=== PATIENT | male | born 1970 | race Caucasian/White ===

== ENCOUNTER 2018-01-27 18:41 | Outpatient (REF) | payer OTHER, SELFPAY ==
[2018-01-27 22:15] LABS: ALT 31 U/L (12-78); AST 14 U/L (15-37); Albumin 4.1 g/dL (3.4-5.0); Alkaline Phosphatase 107 U/L (46-116); Anion Gap 10.9 mmol/L (3-11); BUN 17 mg/dL (7-18); Bilirubin, Total 0.4 mg/dL (0.2-1.0); CO2 27.1 mmol/L (21.0-32.0); CREATININE 0.93 mg/dL (0.70-1.30); Calcium 9.1 mg/dL (8.5-10.1); Chloride 102 mmol/L (98-107); Cholesterol 170 mg/dL (50-200); Glucose 105 mg/dL (70-100); HDL Cholesterol 43 mg/dL (40-60); LDL CHOLESTEROL 117 mg/dL (<100); Potassium 4.2 mmol/L (3.5-5.1); Sodium 140 mmol/L (136-145); Total Protein 6.8 g/dL (6.4-8.2); Triglyceride 101 mg/dL (30-150)
== END 2018-01-27 19:01 ==
LOC: NCHCN 18:41
PROVIDERS: PCP Family Medicine; Visit Provider Nurse Practitioner Family
DX: Z00.00 Encounter for general adult medical examination without abnormal findings (principal); I10 Essential (primary) hypertension
CPT/HCPCS: 80053; 80061; 83721

== ENCOUNTER 2018-02-10 08:50 | Emergency (ER) | payer OTHER, SELFPAY ==
[2018-02-10 09:03] VITALS: BP 158/91; PULSE 58; RESP 17; TEMP 36.6; O2SAT 97
--- NOTE | 2018-02-10 09:35 | W.ED.GENAD ---
Discharge Plan Disposition Patient Disposition: HOME Condition: Good Discharge Details Chief Complaint: GenMedical Clinical Impression: Varicose veins of both lower extremities, Superficial thrombophlebitis Primary Care Provider: Mirian Malcolm ED Provider: Quang Montesinos [place] Meds and New Rx's Prescriptions: New Eliquis 5 mg (74 tabs) tablets,dose pack 10 mg PO BID Qty: 1 RF: 0 oxycodone-acetaminophen [Percocet] 5-325 mg tablet 1 tab PO TID PRN PRN (Reason: Thrombophlebitis of leg) Qty: 14 RF: 0 cephalexin [Keflex] 500 mg capsule 500 mg PO QID Qty: 28 RF: 0 No Action ascorbic acid (vitamin C) 500 MG tablet 500 mg PO DAILY RF: 0 lisinopril 20 MG tablet 20 mg PO DAILY Qty: 90 RF: 3 hydrochlorothiazide 25 MG tablet 25 mg PO DAILY Qty: 90 RF: 3 gabapentin 300 MG capsule 900 mg PO DAILY RF: 0 Airborne (lysine HCl) 1 EACH tablet, effervescent RF: 0 Discharge Instructions Instructions: Superficial Thrombophlebitis (ED) Stand Alone Forms: Work Release Referrals: Lelia Calderon MD [ [facility] STAFF PHYSICIAN] - Raza Perez DO [ [facility] STAFF PHYSICIAN] - Discharge Data Discharge Date/Time-TO BE ENTERED AT DEPARTURE: 02/10/18 11:42 Medical Decision Making 48 y/o male with multiple risk factors for superficial/DVT. He stands all day, smokes, over weight, and grossly engorged varicosity to both lower extremities with previous history of complications. History and exam consistent with infected varicosity. Will start on Keflex and Apixiban for prophylaxis DVT. Medicate with Percocet for the pain. Refer to surgical group for consideration of vein stripping. Will U/S leg today to evaluate for DVT. Baseline labs to evaluate for infectious process, renal and liver function prior to starting Eliquis. Apprised him and of lab and U/S results. We started Eliquis today and I prescribed Percocet for the pain. I referred him to our surgical group. If they are unavailable then he was advised to f/u with his [facility] surgeon. He would prefer to stay locally. Advised to return to ED for any worsening symptoms i.e CP, SOB, or stroke like symptoms or any falls involving impact to head. He agreed with POC. Medical Records All values with subtle abnormalities but all within acceptable limits and without acute pathology. Imaging Data Radiologic Study: Imaging: Ultrasound Radiologist's impression: The deep veins of the left lower extremity show normal compression, augmentation and color flow. No evidence of a deep venous thrombus is seen. There are varicosities seen extending from the proximal thigh to the knee which contained visible hypoechoic noncompressible thrombus. No focal fluid collection is seen in the left lower extremity. IMPRESSION: 1. No evidence of a left lower extremity deep venous thrombus. 2. Thrombosed varicosities seen in the left thigh. Lab Data Lab results reviewed: Yes I reviewed the patient's lab results. HPI General Date/Time Provider Initiated Documentation: 02/10/18 09:07. Limitations to Documentation: no limitations. Information obtained by: patient. History of Present Illness 48 year old M presents to the emergency department with the chief complaint of painful reddened varicosed vein, HPI Narrative: 48 y/o male here with c/o engorged, painful, reddened varicose vein. He has had problems with varicosity for a long time. He has seen vascular surgeons in the past and asked to have them stripped. He was advised to wear ROSETTA stockings at that time. He does not wear ROSETTA stockings now. He was told that if and when they become problematic he could have something done at that time. He works at [employer] and is on his feet all day at work and he spend time outside walking [place]. He smokes every day and has since his teenage years. A few weeks ago he felt a pop along the inner right leg and he immediately noticed flattening and bruising to one of his varicose veins. About a week ago he felt pain to the inner left leg adjacent to his knee. Over the week the area has increased swelling, redness, warmth and pain. Denies any chest pain, back pain, or sob. he does not take any preventive anticoagulants or platelets. Related Data Home Medications Medication Instructions Recorded Confirmed ascorbic acid (vitamin C) 500 mg PO DAILY 06/19/12 02/10/18 hydrochlorothiazide 25 mg PO DAILY #90 tab-cap 06/19/12 02/10/18 lisinopril 20 mg PO DAILY #90 tab-cap 04/25/13 12/17/18 gabapentin 900 mg PO DAILY 11/13/14 02/10/18 [id number] 04/18/16 [Airborne Effervescent Tablet] apixaban [Eliquis] 10 mg PO BID #1 dose pk 02/10/18 cephalexin [Keflex] 500 mg PO QID #28 cap 02/10/18 oxycodone-acetaminophen [Percocet] 1 tab PO TID PRN PRN #14 tab 02/10/18 Previous Rx's Medication Instructions Recorded apixaban [Eliquis] 10 mg PO BID #1 dose pk 02/10/18 cephalexin [Keflex] 500 mg PO QID #28 cap 02/10/18 oxycodone-acetaminophen [Percocet] 1 tab PO TID PRN PRN #14 tab 02/10/18 Allergies Allergy/AdvReac Type Severity Reaction Status Date / Time No Known Allergies Allergy Unverified 02/10/18 09:07 General Stated Complaint: GenMedical HANH: 3 Review of Systems ENT Reports system reviewed and no additional complaints, except as docu Cardiovascular Comments: Painful engorged varicosity to lower extremities. Left worse than right. Respiratory Reports system reviewed and no additional complaints, except as docu Gastrointestinal Reports system reviewed and no additional complaints, except as docu Genitourinary Reports system reviewed and no additional complaints, except as docu Musculoskeletal Reports system reviewed and no additional complaints, except as docu Integumentary/Breasts Reports system reviewed and no additional complaints, except as docu Neurologic Reports system reviewed and no additional complaints, except as docu Hematologic/Lymphatic Reports system reviewed and no additional complaints, except as docu PFSH Social History Smoking/Tobacco Use Status: Current every day Exam Const General: cooperative, comfortable and no acute distress Nutritional Appearance: overweight Orientation: alert, awake and oriented x3 HENMT Head: atraumatic Ears: hearing grossly normal bilaterally and external ears normal General nose exam: external nose normal and nares normal Eyes General: appearance normal, both eyes and all related structures Neck Neck: normal visual inspection, full ROM and no lymphadenopathy Resp Effort & Inspection: normal respiratory effort and able to speak in complete sentences Auscultation: clear to auscultation bilaterally Cardio Jugular venous pressure: no JVD Rate: regular rate Rhythm: regular rhythm Heart Sounds: S1 normal, S2 normal and no murmurs Skin General skin exam: no rashes or lesions noted Extrem Knee images: 1. Over 20 cm long engorged varicosity. No redness. No pain to touch. 2. Over 20 cm long engorged varicosity. No redness. No pain to touch. 3. Over 20 cm long engorged varicosity. Their is moderate swelling to the proximal end of the varicosty. The swelling is warm, painful, and slight fluctuate. 4. Over 20 cm long engorged varicosity. Their is moderate swelling to the proximal end of the varicosty. The swelling is warm, painful, and slight fluctuate. Course Vital Signs Temperature 36.6 C 02/10/18 09:03 Pulse 58 L 02/10/18 09:03 Respiratory Rate 17 02/10/18 09:03 Blood Pressure 158/91 H 02/10/18 09:03 Pulse Oximetry 97 02/10/18 09:03 Temperature 36.6 C 02/10/18 09:03 Temperature Source Skin 02/10/18 09:03 Pulse 58 L 02/10/18 09:03 Respiratory Rate 17 02/10/18 09:03 Respiratory Effort 02/10/18 09:10 Blood Pressure 158/91 H 02/10/18 09:03 Blood Pressure Position Sitting 02/10/18 09:03 Pulse Oximetry 97 02/10/18 09:03 Oxygen Delivery Method Room Air 02/10/18 09:03 Oxygen Flow Rate 0 02/10/18 09:03 Pain Level 8 02/10/18 09:03
--- NOTE | 2018-02-10 09:53 | DI.US_ITS ---
SYMPTOM/DIAGNOSIS: ENGORGED INFLAMED VARICOSITY TO MEDIAL SIDE KNEE LEFT LOWER EXTREMITY ULTRASOUND: The deep veins of the left lower extremity show normal compression, augmentation and color flow. No evidence of a deep venous thrombus is seen. There are varicosities seen extending from the proximal thigh to the knee which contained visible hypoechoic noncompressible thrombus. No focal fluid collection is seen in the left lower extremity. IMPRESSION: 1. No evidence of a left lower extremity deep venous thrombus. 2. Thrombosed varicosities seen in the left thigh.
[2018-02-10] MEDS: oxyCODONE 5 mg/Acetaminophen 325 mg TAB 1 TAB PO (10:01)
[2018-02-10] MEDS: Cephalexin 500 MG CAP PO (10:01)
[2018-02-10 10:04] VITALS: RESP 17
[2018-02-10 10:15] LABS: Abs Immature Grans 0.03 k/cumm (0.0-0.09); Absolute Basophil Count 0.03 k/cumm (0.0-0.2); Absolute Lymphocyte Count 2.13 k/cumm (1.2-3.4); Absolute Monocyte Count 1.08 k/cumm (0.11-0.7); Basophils % 0.2; Eosinophils % 1.6; HCT 52.4 % (40.0-50.0); HGB 17.8 g/dL (13.5-17.5); Immature Grans % 0.2; Lymphocytes % 16.9; Mean Corpuscular Hemoglobin 32.7 pg (27.0-33.0); Mean Corpuscular Volume 96.3 fL (80-95); Mean Platelet Volume 11.3 fL (8.0-11.0); Monocytes % 8.6; Neutrophils % 72.5; Platelet Count 247 x1000/uL (130-400); RBC 5.44 m/cumm (4.50-6.00); RBC Distribution Width 12.7 % (11.8-14.1); White Blood Cell Count 12.58 k/cumm (4.4-10.8)
[2018-02-10 10:17] LABS: Absolute Neutrophil Count 9.12 k/cumm (1.2-6.7)
[2018-02-10 10:20] LABS: ALT 27 U/L (12-78); AST 15 U/L (15-37); Albumin 3.9 g/dL (3.4-5.0); Alkaline Phosphatase 94 U/L (46-116); Anion Gap 10.3 mmol/L (3-11); BUN 14 mg/dL (7-18); Bilirubin, Total 0.8 mg/dL (0.2-1.0); CO2 27.7 mmol/L (21.0-32.0); CREATININE 0.77 mg/dL (0.70-1.30); Calcium 8.9 mg/dL (8.5-10.1); Chloride 102 mmol/L (98-107); Glucose 107 mg/dL (70-100); Magnesium 2.1 mg/dL (1.8-2.4); Potassium 4.4 mmol/L (3.5-5.1); Sodium 140 mmol/L (136-145); Total Protein 6.7 g/dL (6.4-8.2)
[2018-02-10 11:38] VITALS: BP 134/81; PULSE 50; RESP 17; TEMP 36.8; O2SAT 94
--- NOTE | 2018-02-13 10:23 | NUR.NOTE ---
Nursing Note: Patient called this morning stating that he felt that the pain was back and getting worse. Had not heard from [facility] yet either. I verified that the information from his previous visit was sent to [facility] and it was. I told the patient that he could come back to the ED if he felt that he was getting worse along with contacting his PCP and [facility]. Xiao Keith.
== END 2018-02-10 11:42 | disposition home or self-care (01) ==
PROVIDERS: Emergency Provider Nurse Practitioner Family; PCP Family Medicine
DX: I82.402 Acute embolism and thrombosis of unspecified deep veins of left lower extremity (principal); I80.02 Phlebitis and thrombophlebitis of superficial vessels of left lower extremity; F17.210 Nicotine dependence, cigarettes, uncomplicated
CPT/HCPCS: 36415; 80053; 99284; 83735; 85025; 93971

== ENCOUNTER 2018-02-17 12:48 | Emergency (ER) | payer OTHER, SELFPAY ==
[2018-02-17 13:03] VITALS: BP 183/95; PULSE 53; RESP 16; TEMP 36.7; O2SAT 96
--- NOTE | 2018-02-17 15:17 | DI.US_ITS ---
SYMPTOMS/DIAGNOSIS: INFLAMED SUPERFICIAL VEIN, WORSENING DUPLEX VENOUS ULTRASOUND, LEFT LOWER EXTREMITY: Ultrasound examination of the left lower extremity was performed according to the usual protocol. There is no evidence of deep venous thrombosis. The greater saphenous vein is free of thrombus. Note is made of multiple superficial varicosities, which are thrombosed in the distal thigh and proximal leg. CONCLUSION: No evidence of deep venous thrombosis.
--- NOTE | 2018-02-17 16:07 | W.ED.GENAD ---
Discharge Plan Disposition Patient Disposition: HOME Discharge Details Chief Complaint: Vascular Clinical Impression: Superficial thrombophlebitis of left leg Reason For Visit: vascular problem Primary Care Provider: Mirian Malcolm ED Provider: Antonio Gary Home Meds and New Rx's Prescriptions: Continued ascorbic acid (vitamin C) 500 MG tablet 500 mg PO DAILY RF: 0 lisinopril 20 MG tablet 20 mg PO DAILY Qty: 90 RF: 3 hydrochlorothiazide 25 MG tablet 25 mg PO DAILY Qty: 90 RF: 3 gabapentin 300 MG capsule 900 mg PO DAILY RF: 0 Eliquis 5 mg (74 tabs) tablets,dose pack 10 mg PO BID Qty: 1 RF: 0 oxycodone-acetaminophen [Percocet] 5-325 mg tablet 1 tab PO TID PRN PRN (Reason: Thrombophlebitis of leg) Qty: 14 RF: 0 Airborne (lysine HCl) 1 EACH tablet, effervescent RF: 0 Discontinued cephalexin [Keflex] 500 mg capsule 500 mg PO QID Qty: 28 RF: 0 Discharge Instructions Instructions: Superficial Thrombophlebitis (ED) Additional Instructions: Please follow-up with vascular specialist [place] [facility]. Please contact your primary care physician to arrange follow-up. Keep your left leg elevated as much as possible and rest over the next 1 week. After symptoms improve, you should wear compression stockings. Return to the ER for any worsening or new concerning symptoms. Stand Alone Forms: Work Release Referrals: Mirian Malcolm [Primary Care Provider] - Discharge Data Discharge Date/Time-TO BE ENTERED AT DEPARTURE: 02/17/18 16:27 Medical Decision Making 16:05 -- 48yo m here with persistent superficial thrombophlebitis. Symptoms improved initially on antibiotic and with Eliquis but seem to be worsening now over the past few days. Ultrasound of the left lower extremity interpreted by radiology: Superficial thrombus persist adjacent to the knee. Plan to continue warm compresses, Eliquis and will also treat another 1 week of antibiotic. Patient was instructed to call vascular surgery at [facility] to arrange follow-up. Patient understands importance of timely follow-up. I have asked that records be sent to [facility]. Patient advised to follow-up with his PCP. Usual and customary discharge instructions were provided. I advised him to return to the emergency department if any worsening or new concerning symptoms. HPI General Mode of arrival: ambulatory. Date/Time Provider Initiated Documentation: 02/17/18 14:49. Limitations to Documentation: no limitations. Information obtained by: patient. HPI Narrative: 48yo m here with pain and swelling LLE. Was seen here 02/10 and diagnosed with persistent superficial thrombophlebitis. Symptoms improved initially on antibiotic and Eliquis but seem to be worsening now over the past few days. No associated fever. No numbness. Patient is having difficulty arranging follow-up with vascular at [facility]. Related Data Home Medications Medication Instructions Recorded Confirmed ascorbic acid (vitamin C) 500 mg PO DAILY 06/19/12 02/17/18 hydrochlorothiazide 25 mg PO DAILY #90 tab-cap 06/19/12 02/17/18 lisinopril 20 mg PO DAILY #90 tab-cap 06/19/12 02/17/18 gabapentin 900 mg PO DAILY 11/13/14 02/17/18 Airborne (lysine HCl) 04/18/16 Eliquis 10 mg PO BID #1 dose pk 02/10/18 02/17/18 oxycodone-acetaminophen [Percocet] 1 tab PO TID PRN PRN #14 tab 02/10/18 02/17/18 Previous Rx's Medication Instructions Recorded Eliquis 10 mg PO BID #1 dose pk 02/10/18 oxycodone-acetaminophen [Percocet] 1 tab PO TID PRN PRN #14 tab 02/10/18 Allergies Allergy/AdvReac Type Severity Reaction Status Date / Time No Known Allergies Allergy Unverified 02/17/18 13:09 General Stated Complaint: Vascular HANH: 3 Review of Systems Constitutional Reports as per HPI Cardiovascular Reports as per HPI Gastrointestinal Denies abdominal pain [facility] Social History Smoking/Tobacco Use Status: Current every day Exam Const General: cooperative and no acute distress HENMT Head: normocephalic and atraumatic Mouth: moist mucous membranes Eyes Conjunctivae: normal conjunctivae Sclera: normal sclerae Neck Neck: trachea midline and supple Resp Auscultation: clear to auscultation bilaterally, no rales, no rhonchi and no wheezes Cardio Jugular venous pressure: no JVD Rate: regular rate and not tachycardic Rhythm: regular rhythm Pulses: posterior tibial pulses present on the right 2+ and on the left 2+ GI Palpation: soft, not firm, no guarding, no masses, not rigid and nontender Skin General skin exam: no rashes or lesions noted Neuro General: alert, awake, oriented x3 and tone normal Extrem General: no edema Left lower extremity: hip/thigh (dilated vein medial distal thigh, ttp, mild overlying redness, no warmth) Course Vital Signs Temperature 36.7 C 02/17/18 13:03 Pulse 53 L 02/17/18 13:03 Respiratory Rate 16 02/17/18 13:03 Blood Pressure 183/95 H 02/17/18 13:03 Pulse Oximetry 96 02/17/18 13:03 Temperature 36.7 C 02/17/18 13:03 Temperature Source Temporal Artery Scan 02/17/18 13:03 Pulse 53 L 02/17/18 13:03 Respiratory Rate 16 02/17/18 13:03 Respiratory Effort Non-Labored 02/17/18 13:56 Blood Pressure 183/95 H 02/17/18 13:03 Blood Pressure Position Sitting 02/17/18 13:03 Pulse Oximetry 96 02/17/18 13:03 Oxygen Delivery Method Room Air 02/17/18 13:03 Oxygen Flow Rate 0 02/17/18 13:03 Pain Level 8 02/17/18 13:58
--- NOTE | 2018-02-17 16:11 | ED.GENADUL_ITS ---
Discharge Plan Disposition Patient Disposition: HOME Discharge Details Chief Complaint: Vascular Clinical Impression: Superficial thrombophlebitis of left leg Reason For Visit: vascular problem Primary Care Provider: Mirian Malcolm ED Provider: Antonio Gary Home Meds and New Rx's Prescriptions: Continued ascorbic acid (vitamin C) 500 MG tablet 500 mg PO DAILY RF: 0 lisinopril 20 MG tablet 20 mg PO DAILY Qty: 90 RF: 3 hydrochlorothiazide 25 MG tablet 25 mg PO DAILY Qty: 90 RF: 3 gabapentin 300 MG capsule 900 mg PO DAILY RF: 0 Eliquis 5 mg (74 tabs) tablets,dose pack 10 mg PO BID Qty: 1 RF: 0 oxycodone-acetaminophen [Percocet] 5-325 mg tablet 1 tab PO TID PRN PRN (Reason: Thrombophlebitis of leg) Qty: 14 RF: 0 Airborne (lysine HCl) 1 EACH tablet, effervescent RF: 0 Discontinued cephalexin [Keflex] 500 mg capsule 500 mg PO QID Qty: 28 RF: 0 Discharge Instructions Instructions: Superficial Thrombophlebitis (ED) Additional Instructions: Please follow-up with vascular specialist at [facility]. Please contact your primary care physician to arrange follow-up. Keep your left leg elevated as much as possible and rest over the next 1 week. After symptoms improve, you should wear compression stockings. Return to the ER for any worsening or new concerning symptoms. Stand Alone Forms: Work Release Referrals: Mirian Malcolm [Primary Care Provider] - Discharge Data Discharge Date/Time-TO BE ENTERED AT DEPARTURE: 02/17/18 16:27 Medical Decision Making 16:05 -- 48yo m here with persistent superficial thrombophlebitis. Symptoms improved initially on antibiotic and with Eliquis but seem to be worsening now over the past few days. Ultrasound of the left lower extremity interpreted by radiology: Superficial thrombus persist adjacent to the knee. Plan to continue warm compresses, Eliquis and will also treat another 1 week of antibiotic. Patient was instructed to call vascular surgery at [facility] to arrange follow-up. Patient understands importance of timely follow-up. I have asked that records be sent to [facility]. Patient advised to follow-up with his PCP. Usual and customary discharge instructions were provided. I advised him to return to the emergency department if any worsening or new concerning symptoms. HPI General Mode of arrival: ambulatory . Date/Time Provider Initiated Documentation: 02/17/18 14:49 . Limitations to Documentation: no limitations . Information obtained by: patient . HPI Narrative: 48yo m here with pain and swelling LLE. Was seen here 02/10 and diagnosed with persistent superficial thrombophlebitis. Symptoms improved initially on antibiotic and Eliquis but seem to be worsening now over the past few days. No associated fever. No numbness. Patient is having difficulty arranging follow-up with vascular at [facility]. Related Data Home Medications Medication Instructions Recorded Confirmed ascorbic acid (vitamin C) 500 mg PO DAILY 06/19/12 02/17/18 hydrochlorothiazide 25 mg PO DAILY #90 tab-cap 06/19/12 02/17/18 lisinopril 20 mg PO DAILY #90 tab-cap 06/19/12 02/17/18 gabapentin 900 mg PO DAILY 11/13/14 02/17/18 Airborne (lysine HCl) 04/18/16 Eliquis 10 mg PO BID #1 dose pk 02/10/18 02/17/18 oxycodone-acetaminophen [Percocet] 1 tab PO TID PRN PRN #14 tab 02/10/18 02/17/18 Previous Rx's Medication Instructions Recorded Eliquis 10 mg PO BID #1 dose pk 02/10/18 oxycodone-acetaminophen [Percocet] 1 tab PO TID PRN PRN #14 tab 02/10/18 Allergies Allergy/AdvReac Type Severity Reaction Status Date / Time No Known Allergies Allergy Unverified 02/17/18 13:09 General Stated Complaint: Vascular HANH: 3 Review of Systems Constitutional Reports as per HPI Cardiovascular Reports as per HPI Gastrointestinal Denies abdominal pain [facility] Social History Smoking/Tobacco Use Status: Current every day Exam Const General: cooperative and no acute distress HENMT Head: normocephalic and atraumatic Mouth: moist mucous membranes Eyes Conjunctivae: normal conjunctivae Sclera: normal sclerae Neck Neck: trachea midline and supple Resp Auscultation: clear to auscultation bilaterally, no rales, no rhonchi and no wheezes Cardio Jugular venous pressure: no JVD Rate: regular rate and not tachycardic Rhythm: regular rhythm Pulses: posterior tibial pulses present on the right 2+ and on the left 2+ GI Palpation: soft, not firm, no guarding, no masses, not rigid and nontender Skin General skin exam: no rashes or lesions noted Neuro General: alert, awake, oriented x3 and tone normal Extrem General: no edema Left lower extremity: hip/thigh (dilated vein medial distal thigh, ttp, mild overlying redness, no warmth) Course Vital Signs Temperature 36.7 C 02/17/18 13:03 Pulse 53 L 02/17/18 13:03 Respiratory Rate 16 02/17/18 13:03 Blood Pressure 183/95 H 02/17/18 13:03 Pulse Oximetry 96 02/17/18 13:03 Temperature 36.7 C 02/17/18 13:03 Temperature Source Temporal Artery Scan 02/17/18 13:03 Pulse 53 L 02/17/18 13:03 Respiratory Rate 16 02/17/18 13:03 Respiratory Effort Non-Labored 02/17/18 13:56 Blood Pressure 183/95 H 02/17/18 13:03 Blood Pressure Position Sitting 02/17/18 13:03 Pulse Oximetry 96 02/17/18 13:03 Oxygen Delivery Method Room Air 02/17/18 13:03 Oxygen Flow Rate 0 02/17/18 13:03 Pain Level 8 02/17/18 13:58
== END 2018-02-17 16:27 | disposition home or self-care (01) ==
PROVIDERS: Emergency Provider Student in an Organized Health Care Education/Training Program; PCP Family Medicine
DX: I80.02 Phlebitis and thrombophlebitis of superficial vessels of left lower extremity (principal); F17.210 Nicotine dependence, cigarettes, uncomplicated; Z79.01 Long term (current) use of anticoagulants
CPT/HCPCS: 99284; 93971

== ENCOUNTER 2018-07-24 16:20 | Outpatient (REF) | payer OTHER, SELFPAY ==
[2018-07-28 11:27] LABS: HSV Type 1 Ab, IgG Positive; HSV Type 2 Ab, IgG Negative; Syphilis Serology (RPR) Negative (Negative); Varicella IgG Antibody Positive
[2018-07-28 13:51] LABS: Chlamydia Result Negative; GC Result Negative; Specimen Description URINE
[2018-07-28 14:19] LABS: HIV-1/2 Ag & Ab Screen Negative (NEGAT)
== END 2018-07-24 16:40 ==
LOC: NCHCN 16:20
PROVIDERS: PCP Family Medicine; Visit Provider Family Medicine
DX: Z00.00 Encounter for general adult medical examination without abnormal findings (principal); Z11.3 Encounter for screening for infections with a predominantly sexual mode of transmission; Z11.4 Encounter for screening for human immunodeficiency virus [HIV]; Z01.84 Encounter for antibody response examination
CPT/HCPCS: 86787; 87389; 87491; 87591; 86592; 86695; 86696

== ENCOUNTER 2018-08-13 00:37 | Emergency (ER) | payer OTHER, SELFPAY ==
[2018-08-13 00:41] VITALS: BP 106/70; PULSE 50; RESP 10; TEMP 36.2; O2SAT 97
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
[2018-08-13 00:58] LABS: Abs Immature Grans 0.11 k/cumm (0.0-0.09); Absolute Basophil Count 0.05 k/cumm (0.0-0.2); Absolute Eosinophil Count 0.25 k/cumm (0.0-0.7); Absolute Lymphocyte Count 4.19 k/cumm (1.2-3.4); Absolute Monocyte Count 0.98 k/cumm (0.11-0.7); Basophils % 0.4; Eosinophils % 1.9; HCT 45.4 % (40.0-50.0); HGB 15.7 g/dL (13.5-17.5); Immature Grans % 0.8; Lymphocytes % 32.1; Mean Corp. HGB Concentration 34.6 g/dL (32.0-36.0); Mean Corpuscular Hemoglobin 33.9 pg (27.0-33.0); Mean Corpuscular Volume 98.1 fL (80-95); Mean Platelet Volume 11.4 fL (8.0-11.0); Monocytes % 7.5; Neutrophils % 57.3; Platelet Count 235 x1000/uL (130-400); RBC 4.63 m/cumm (4.50-6.00); RBC Distribution Width 12.3 % (11.8-14.1); White Blood Cell Count 13.04 k/cumm (4.4-10.8)
[2018-08-13 01:00] LABS: Absolute Neutrophil Count 7.47 k/cumm (1.2-6.7)
[2018-08-13 01:07] LABS: PTT Activated 21.4 sec (21.0-31.4); Prothrombin Time 10.1 sec (9.3-11.0)
[2018-08-13 01:08] LABS: ALT 64 U/L (12-78); AST 52 U/L (15-37); Albumin 3.6 g/dL (3.4-5.0); Alkaline Phosphatase 93 U/L (46-116); Anion Gap 11.1 mmol/L (3-11); BUN 13 mg/dL (7-18); Bilirubin, Total 0.3 mg/dL (0.2-1.0); CO2 24.9 mmol/L (21.0-32.0); CREATININE 0.89 mg/dL (0.70-1.30); Chloride 102 mmol/L (98-107); Glucose 170 mg/dL (70-100); Potassium 3.1 mmol/L (3.5-5.1); Sodium 138 mmol/L (136-145); Total Protein 6.6 g/dL (6.4-8.2)
[2018-08-13 01:10] LABS: ETHANOL BLOOD 225.4 mg/dL (<3)
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
[2018-08-13] MEDS: Omnipaque 350 MG/ML 100 ML BTL IJ (02:14)
--- NOTE | 2018-08-13 02:45 | DI.CT_ITS ---
SYMPTOM/DIAGNOSIS: [place] [facility] [place]ACIC AND LUMBAR SPINES: Images of the spine were reconstructed from a chest and abdominal and pelvic CT. There is no evidence of a dorsal or lumbar fracture or subluxation. Note is made of an L5-S1 spondylolysis without evidence of spondylolisthesis. There are mild degenerative changes involving the dorsal and lumbar spine.
== END 2018-08-13 02:02 | disposition short-term general hospital (02) ==
LOC: ER 01:58
PROVIDERS: Emergency Provider Emergency Medicine; PCP Family Medicine
DX: S72.142A Displaced intertrochanteric fracture of left femur, initial encounter for closed fracture (principal); S81.812A Laceration without foreign body, left lower leg, initial encounter; M79.662 Pain in left lower leg; J98.11 Atelectasis; V47.5XXA Car driver injured in collision with fixed or stationary object in traffic accident, initial encounter
CPT/HCPCS: 36415; 73552; 74177; 80053; 86850; 86900; 86901; 99285; 70450; 71260; 72125; 73590; 80320; 85025; 85610; 85730; 99284; J3490; L0172

== ENCOUNTER 2020-02-04 06:52 | Emergency (ER) | payer OTHER, SELFPAY ==
[2020-02-04 06:55] VITALS: BP 175/110; PULSE 80; RESP 16; TEMP 36.5; O2SAT 97
--- NOTE | 2020-02-04 06:57 | ED.GENADUL_ITS ---
Discharge Plan Disposition Patient Disposition: HOME Condition: Stable Discharge Details Clinical Impression: Sprain of left middle finger Primary Care Provider: Mirian Malcolm ED Provider: Quang yLle Home Meds and New Rx's Prescriptions: Continued ascorbic acid (vitamin C) 500 MG tablet 500 mg PO DAILY RF: 0 lisinopril 20 MG tablet 20 mg PO DAILY Qty: 90 RF: 3 hydrochlorothiazide 25 MG tablet 25 mg PO DAILY Qty: 90 RF: 3 gabapentin 300 MG capsule 900 mg PO DAILY RF: 0 multivitamin Tablet 1 tab PO DAILY RF: 0 atorvastatin 10 mg Tablet 10 mg PO DAILY RF: 0 atenolol 100 mg Tablet 100 mg PO DAILY RF: 0 thiamine HCl (vitamin B1) 100 mg Tablet 100 mg PO DAILY RF: 0 citalopram [Celexa] 20 mg Tablet 20 mg PO DAILY RF: 0 sildenafil (pulm.hypertension) 20 mg Tablet 20 mg PO PRN PRNRF: 0 Discharge Instructions Instructions: Finger Sprain (ED) Additional Instructions: if pain continues in a week see your primary care provider you can take 1000mg tylenol and 600mg ibuprofen every 6 hours for pain as needed Stand Alone Forms: Work Release Medical Decision Making 50 yo male states he slipped in the shower last night and hit his left middle finger. No loc and denies headache, n/v, neck pain, chest pain, abdominal pain or back pain, just has pain over pip joinht of left middle finger with mild swelling. CAn full flex and extend at all joint though has discomfort in the pip joint of middle finger, normal sensation and cap refill. Suspect sprain vs contusion but will xray to evaluate for fx. No findings to suggest tendon injury remains with stable unchanged exam and xray unremarkable, will d/c home and advised to f/u with pcp if not improved within a week Differential Diagnosis Differential Diagnosis: sprain strain fx dislocation Imaging Data Radiologic Study: Attestation: I personally reviewed and interpreted this imaging study as follows: Imaging: X-Ray Radiologist's impression: no acute findings HPI General Mode of arrival: ambulatory . Date/Time Provider Initiated Documentation: 02/04/20 06:56 . Limitations to Documentation: no limitations . Information obtained by: patient . History of Present Illness 50 year old M presents to the emergency department with the chief complaint of pain in middle finger, described as moderate, Patient started experiencing this day(s) (1) and it has been constant. No relieving factors improve symptom(s), No exacerbating factors reported . Patient notes no other symptoms.. Patient did receive the following treatments prior to arrival, none Related Data Home Medications Medication Instructions Recorded Confirmed ascorbic acid (vitamin C) 500 mg PO DAILY 06/19/12 08/13/18 hydrochlorothiazide 25 mg PO DAILY #90 tab-cap 06/19/12 08/13/18 lisinopril 20 mg PO DAILY #90 tab-cap 06/19/12 08/13/18 gabapentin 900 mg PO DAILY 11/13/14 08/13/18 atenolol 100 mg PO DAILY 08/13/18 08/13/18 atorvastatin 10 mg PO DAILY 08/13/18 08/13/18 citalopram [Celexa] 20 mg PO DAILY 08/13/18 08/13/18 multivitamin 1 tab PO DAILY 08/13/18 08/13/18 sildenafil (pulm.hypertension) 20 mg PO PRN PRN 08/13/18 08/13/18 thiamine HCl (vitamin B1) 100 mg PO DAILY 08/13/18 08/13/18 Allergies Allergy/AdvReac Type Severity Reaction Status Date / Time No Known Allergies Allergy Unverified 02/04/20 06:58 General HANH: 2 Review of Systems All systems reviewed & are unremarkable except as noted in HPI and below Constitutional Constitutional: Denies chills, Denies fever(s) and Denies weakness Cardiovascular Cardiovascular: Denies chest pain and Denies dyspnea Respiratory Respiratory: Denies cough and Denies dyspnea Gastrointestinal Gastrointestinal: Denies abdominal pain, Denies nausea and Denies vomiting Musculoskeletal Musculoskeletal: Denies joint swelling Neurologic Neurologic: Denies weakness Psychiatric Psychiatric: Denies depression [facility], [facility] Social History Smoking/Tobacco Use Status: Current every day Smoking risk assessment performed?: Yes Alcohol Intake: current Drug use: Never Substance use type: does not use Do you feel safe at home: Yes Do you feel safe in your relationship?: Yes Exam Const General: no acute distress Orientation: alert HENMT Head: normal to inspection Ears: external ears normal General nose exam: external nose normal Mouth: moist mucous membranes Eyes General: appearance normal, both eyes and all related structures Neck Neck: normal visual inspection Resp Effort & Inspection: normal respiratory effort and able to speak in complete sentences Cardio Rate: regular rate Skin General skin exam: no rashes or lesions noted Neuro General: patient alert and patient oriented x3 Extrem General: full ROM and capillary refill normal Psych Mental Status: mental status grossly normal
--- NOTE | 2020-02-04 07:13 | DI.RAD_ITS ---
EXAM: XR FINGER LT MIDDLE CLINICAL HISTORY: pain s/p fall yesterday. TECHNIQUE: 2D digital imaging was performed. COMPARISON: No exams were available for comparison FINDINGS: Three views of the left hand including a PA view of the entire hand plus 2 dedicated views of the 3rd -middle finger. There is no evidence of fracture nor dislocation. No radiopaque foreign body. No osseous lesions. Mild swelling the soft tissues around the distal proximal phalanx noted. IMPRESSION: No fracture evident. DATA REPOSITORY: RADIATION DOSE DELIVERED:
--- NOTE | 2020-02-04 07:20 | DI.VRAD_ITS ---
PROCEDURE INFORMATION: Exam: XR Left Finger(s) Exam date and time: 02/04/2020 7:10 AM Age: 50 years old Clinical indication: Other: Pain, S/P fall yesterday TECHNIQUE: Imaging protocol: XR Left fingers. Views: Minimum 2 views. COMPARISON: No relevant prior studies available. FINDINGS: Bones/joints: No acute bony injury or malalignment in the visualized left hand. Soft tissues: Soft tissue swelling without radiopaque foreign body. IMPRESSION: No acute bony injury or malalignment in the visualized left hand. Dictated and Authenticated by: Jose Raul Land MD. Ordering:BETTY Del Rio MD
== END 2020-02-04 07:34 | disposition home or self-care (01) ==
PROVIDERS: Emergency Provider Emergency Medicine; PCP Family Medicine
DX: S63.633A Sprain of interphalangeal joint of left middle finger, initial encounter (principal); W18.2XXA Fall in (into) shower or empty bathtub, initial encounter; X50.9XXA Other and unspecified overexertion or strenuous movements or postures, initial encounter
CPT/HCPCS: 29130; 99283; 73140

== ENCOUNTER 2020-10-07 10:12 | Day surgery (SDC) | payer OTHER, SELFPAY ==
--- NOTE | 2020-10-07 10:16 | PDOC.DSDIS_ITS ---
Discharge Plan Disposition Patient Disposition: HOME Condition: Good Discharge Details Reason For Visit: colon scope & polyp removal Attending Provider: Kathryn Francis Primary Care Provider: Mirian Malcolm Home Meds and New Rx's Prescriptions: New ciprofloxacin HCl [Cipro] 500 mg tablet 500 mg PO BID 5 Days Qty: 10 RF: 0 metronidazole [Flagyl] 500 mg tablet 500 mg PO Q8H 5 Days Qty: 15 RF: 0 Continued ascorbic acid (vitamin C) 500 MG tablet 500 mg PO DAILY RF: 0 lisinopril 20 MG tablet 20 mg PO DAILY Qty: 90 RF: 3 vardenafil [Levitra] 20 mg tablet 20 mg PO DAILY RF: 0 cyanocobalamin (vitamin B-12) 1,000 mcg capsule 1,000 mcg PO DAILY RF: 0 gabapentin 300 MG capsule 900 mg PO DAILY RF: 0 multivitamin Tablet 1 tab PO DAILY RF: 0 atorvastatin 10 mg Tablet 10 mg PO DAILY RF: 0 atenolol 100 mg Tablet 100 mg PO DAILY RF: 0 thiamine HCl (vitamin B1) 100 mg Tablet 100 mg PO DAILY RF: 0 citalopram [Celexa] 20 mg Tablet 20 mg PO DAILY RF: 0 Discontinued polyethylene glycol 3350 17 gram/dose powder 238 g PO ONCE Qty: 238 RF: 0 bisacodyl [Dulcolax (bisacodyl)] 5 mg tablet,delayed release (DR/EC) 5 mg PO ONCE Qty: 4 RF: 0 Discharge Instructions Additional Instructions: DSU Colonoscopy Post- Op Instructions Instructions for Everyone who is given Anesthesia: For your safety, please do the following for the next twenty-four (72) hours: *Do Not operate a motor vehicle (car, truck, motorcycle, etc.) *Do Not drink alcoholic beverages or use any recreational drugs for the first 72 hours or while taking pain medications. The medications in your body may have a reaction that can be dangerous. *Do Not make any important decisions or sign any important papers. Findings: multiple large polyps -take antibiotics as directed -no aspirin or ibuprofen for 10 days Follow up: repeat scope in 1 yrs time. 1. No lifting over 20 pounds or strenuous activity for the first 72 hours after your procedure. After 72 hours there are no restrictions on your activity but you may feel fatigued for a few days. 2. After you arrive home you may have a light meal and return to your normal diet as you can tolerate it without feeling sick to your stomach. 3. You may have a bloated, gaseous feeling in your belly (abdomen) after a colonoscopy. Passing gas and belching will help. Walking or lying down on your left side with your knees flexed may relieve the discomfort. Call the office at [phone] (Office) or [phone] (Hospital) right away if you notice any of the following: a.Vomiting of blood or ?coffee ground stools?. b.Rectal bleeding 1Tbsp, blood clots or continuous bleeding. c.Severe belly (abdominal) pain. d.A hard distended belly (abdomen) and an inability to pass gas. 4. Please don?t expect to have a normal BM (bowel movement) for 2-3 days after your procedure. 5. If there are questions regarding the findings of your procedure, please contact your doctor 6. If you are unable to contact your doctor with a problem, contact the hospital at [phone]. 7. Continue all your regular medications unless directed otherwise. I understand the above instructions and have no questions. Signature of Patient or Adult Escort Name of Responsible Adult Escort Signature of Nurse Date/Time Activity:: see above Diet:: see above Discharge Orders Discharge Orders: Discharge Order (Routine); Ordered 10/06/20 Ordered By: Kathryn Francis DS: Diagnosis Discharge Diagnosis (1) Multiple adenomatous polyps: Status: Acute
--- NOTE | 2020-10-07 10:17 | W.COLOREPORT ---
Date of service: 10/07/20 Time of Service: 13:02 Colonoscopy Report Date of procedure: 10/07/20 Pre-op diagnosis general: Family history of colorectal cancer Post-op diagnosis procedure note: other (Adenomatous polyps) Anesthesia Type: General:No Airway Estimated blood loss (mL): 2 Pathology: other Complications: None Disposition: same day Prep: Miralax/Dulcolax Retraction Time: 60 mins Procedure Description: After informed consent was obtained the patient was taken to the procedure room and placed in a left decubitous position. Monitors were applied and a time out was done. The patients name, date of , procedure, allergies to medications and metal in their body was reviewed. The patient was then sedated. Once sedated and comfortable a rectal exam was done. External exam was normal. Internal exam revealed a normal sphincter tone and no palpable masses. The scope was then introduced and retrofelexed. no internal hemorrhoids were identified. The scope was then advanced to the cecum w/out difficulty. The TI and appendiceal orifice were identified. The prep was adequate. There was a large amount of retained debris on the cohen of the colon. This was lavaged, however lesions less than 5 mm in the best. He had multiple polyps that are removed. At 80 cm he had x3, 5 mm, flat adenomatous polyps. All 3 of these polyps are removed with a cold biopsy forcep. At 30 cm he has a lg pedunculated 3cm polyp that is tattooed and then removed with a hot snare. A clip was placed over the defect. At 20 cm he has had 3 adenomatous polyps are removed. The first is a 5 mm flat polyp this is removed with a cold forcep. He has a small 1cm pedunculated polyp. This is removed with hot snare and extracted. He has a 1.5 cm pedunculated polyp that is removed with a hot snare and removed. None of these areas required clips. This area is tattooed as well. He has x2 adenomatous polyps in the rectum. One is a flat 5 mm polyp that is removed with a hot snare. The second is near the anal rectal junction and .75 mm slightly pedunculated polyp that is removed with a hot biopsy forcep. All specimens are retrieved and no bleeding is noted. The scope was then slowly retracted over 60mins. there are no diverticula or AVMs noted. All specimens are retrieved and there is no bleeding noted. 60 Minutes back into the rectum. The scope was removed and the patient was woken up and taken back to Same day surgery in stable condition. The patient tolerated the procedure well and there were no immediate complications. Follow up: The patient should follow up in 1 years unless they develop changes in bowel habits or other new gastrointestinal complaints.
[2020-10-07 10:36] VITALS: BP 148/98; PULSE 63; RESP 18; TEMP 36.2; O2SAT 96
[2020-10-07] MEDS: Lactated Ringers 1,000 ML 80 ML IV (10:52)
--- NOTE | 2020-10-07 11:48 | W.ANESPRE ---
General Info Date of Service Date Performed: 10/07/20 Height: 6 ft Weight: 112.9 kg Body Mass Index (BMI): 33.7 Surgical Procedure: Operation Date: 10/07/20 11:05 Proposed Procedures Side Surgeon inge Francis DO Meds Allergies and Home Medications Allergies Allergy/AdvReac Type Severity Reaction Status Date / Time No Known Allergies Allergy Verified 10/07/20 10:32 Home Medication Medication Instructions Recorded ascorbic acid (vitamin C) 500 mg PO DAILY 06/19/12 lisinopril 20 mg PO DAILY #90 tab-cap 06/19/12 gabapentin 900 mg PO DAILY 11/13/14 atenolol 100 mg PO DAILY 08/13/18 atorvastatin 10 mg PO DAILY 08/13/18 citalopram [Celexa] 20 mg PO DAILY 08/13/18 multivitamin 1 tab PO DAILY 08/13/18 thiamine HCl (vitamin B1) 100 mg PO DAILY 08/13/18 cyanocobalamin (vitamin B-12) 1,000 mcg PO DAILY 06/10/20 1,000 mcg capsule vardenafil 20 mg tablet 20 mg PO DAILY 06/10/20 bisacodyl 5 mg tablet,delayed 5 mg PO ONCE #4 tab 09/30/20 release polyethylene glycol 3350 17 238 g PO ONCE #238 g 09/30/20 gram/dose oral powder Current Visit Medications: Current Medications Generic Name Dose Route Start Last Admin Trade Name Freq PRN Reason Stop Dose Admin Hyoscyamine Sulfate 0.125 mg 10/06/20 18:08 Hyoscyamine 0.125 Mg Sl/Oral/Chew SL DIRECTED PRN Ringer's Solution 1,000 mls @ 80 mls/hr 10/07/20 06:00 10/07/20 10:52 IV 11/05/20 23:59 80 mls/hr INFUSION SWATHI Administration IV Miscellaneous Supplies 1 each 10/07/20 06:00 Iv Access IV 11/05/20 23:59 DIRECTED SWATHI Ondansetron HCl 4 mg 10/06/20 18:08 Ondansetron 4 Mg/2 Ml Vial IVP Q4H PRN PRN Nausea / Vomiting Sodium Chloride 0 ml 10/07/20 06:00 Normal Saline Flush 10 Ml Syr IV 11/05/20 23:59 PRN PRN Sodium Chloride 0 ml 10/07/20 06:00 Normal Saline 10 Ml Vial IJ 11/05/20 23:59 DIRECTED PRN Sterile Water 0 ml 10/07/20 06:00 Water,Injection,Sterile 10 Ml Vial IJ 11/05/20 23:59 DIRECTED PRN PFSH Active Problems Active Problems: Problem Status Onset Code Varicose veins of both lower extremities I83.93 Hypertriglyceridemia E78.1 Prediabetes R73.03 Anger Alcohol abuse F10.10 Peripheral neuropathy G62.9 Smoker F17.200 Hypertension I10 Situational anxiety F41.8 Erectile dysfunction N52.9 Bilateral hearing loss H91.93 Screening for colon cancer Z12.11 Loose body of right elbow M24.021 Idiopathic peripheral neuropathy 06/25/13 G60.9 Tobacco Smoking/Tobacco Use Status: Current every day Tobacco Type: cigarettes Alcohol Alcohol Intake: current Alcohol intake frequency: 0-2 drinks per day Substance Use Substance use: Never Substance use type: does not use Vital Signs and Lab Results Vital Signs Most Recent Vital Signs in EMR: Most Recent Vital Signs Temp Pulse Resp BP Pulse Ox 36.2 C L 63 18 148/98 H 96 10/07/20 10:36 10/07/20 10:36 10/07/20 10:36 10/07/20 10:36 10/07/20 10:36 Lab Results Blood Type / Crossmatch: No Data to Display Complete Blood Count: No Data to Display Complete Metabolic Panel: No Data to Display Liver Function Panel: No Data to Display Coagulation Panel: No Data to Display Cardiac Panel: No Data to Display Arterial Blood Gas: No Data to Display Venous Blood Gas: No Data to Display Pancreas Panel: No Data to Display Thyroid Panel: No Data to Display Infectious Disease: No Data to Display Blood Cultures: No Data to Display Toxicology Panel: No Data to Display Anesthesia Assessment and Plan Anesthesia History Personal History: No History of Anesthesia Complications Family History: No Family History of Anesthesia Complications Exercise Tolerance Exercise Tolerance: Metabolic Equivalents>4 Pertinent Negatives Pertinent Negatives: No Symptoms of GERD and No Major Cardiovascular Symptoms or Complaints Cardiac & Pulmonary Exam Cardiac Exam: Normal S1/S2 Heart Sounds Pulmonary Exam: Clear Bilateral Breath Sounds Airway Exam Known Difficult Airway: No Mallampati Class: 2 Mouth Opening: Normal (> 3cm) Thyromental Distance: Less than 3 cm Neck Range of Motion: Full ROM Neck Circumference: Normal Teeth Condition: Normal Dentition ASA Classification ASA Score: ASA 2 Emergency Case?: No NPO Status NPO Status: NPO Clears >2 hours, Solids >8 hours Anesthesia Plan Resuscitation Status: Full Code Anesthesia Technique: General Anesthesia Airway Planned: Natural Airway Monitors Used: Standard Monitors
[2020-10-07 11:54] VITALS: BMI 33.7
--- NOTE | 2020-10-07 12:21 | BOWEL_PTH ---
PATIENT: Porsha Park LOC: [facility] U#:[id number] AGE/SX: 50/M ROOM: RE10/07/[address]: Kathryn Francis : 1970 BED: DIS: 10/07/2020 SPEC #: [id number] RECD: 10/07/20 16:37 STATUS: DOUG REA #: [id number] AMARILYS: 10/07/20 12:[address]: Kathryn Francis DEPT: Surgical Specimen RECD BY: Myrna Zhang ENTERED: 10/07/20 16:39 SP TYPE: Bowel OTHR DR: Mirian Malcolm Tissues: 1 - BIOPSY BOWEL 2 - BIOPSY BOWEL 3 - BIOPSY BOWEL 4 - BIOPSY BOWEL Procedures: GROSS AND MICRO LEVEL 4 Comments: [id number]
[2020-10-07] MEDS: Endoscopic Tattoo 5 ML SYR IJ ×2 (12:46→12:47)
[2020-10-07 13:09] VITALS: BP 143/90; PULSE 61; RESP 16; TEMP 36.2; O2SAT 95
--- NOTE | 2020-10-07 13:10 | W.ANESPOSTOP ---
Postoperative Evaluation Date, Time and Location Date Performed: 10/07/20 Time Performed: 13:10 Patient Location: Day Surgery Unit Vital Signs Most Recent Imported Vital Signs: Most Recent Vital Signs Temp Pulse Resp BP Pulse Ox 36.2 C L 63 18 148/98 H 96 10/07/20 10:36 10/07/20 10:36 10/07/20 10:36 10/07/20 10:36 10/07/20 10:36 Most Recent Manually Entered Vital Signs: Adult Blood Pressure: 143/90 Heart Rate: 53 Respirations: 12 Oxygen Saturation (%): 97 Temperature (C): 36.6 C Pain Score (0-10 Scale): 0 Pain Score Most Recent Pain Score: Most Recent Pain Score Pain Level 0 10/07/20 10:36 Assessment Mental Status: Awake (Alert & Oriented to Patient Baseline) Airway and Respiratory Function: Patent airway with normal (patient baseline) respiratory exam Cardiovascular Function: Hemodynamically Stable Hydration Status: Adequately Hydrated Nausea & Vomiting: No Nausea or Vomiting Pain: Pt. Denies Any Pain Peripheral Nerve Block: Patient did not receive a nerve block
[2020-10-07 13:11] VITALS: BP 143/90; PULSE 53; RESP 12; TEMPC 36.6; O2SAT 97
[2020-10-07 13:39] VITALS: BP 156/96; PULSE 56; RESP 16; TEMP 36.2; O2SAT 96
== END 2020-10-07 14:03 | disposition home or self-care (01) ==
PROVIDERS: PCP Family Medicine; Visit Provider Surgery
PROC: 0DJD8ZZ Inspection of Lower Intestinal Tract, Via Natural or Artificial Opening Endoscopic (ICD-10-PCS; CPT 45378; principal; 2020-10-07 11:00)
DX: Z12.11 Encounter for screening for malignant neoplasm of colon (principal); D12.4 Benign neoplasm of descending colon; Z80.0 Family history of malignant neoplasm of digestive organs; R73.03 Prediabetes; I10 Essential (primary) hypertension; D12.0 Benign neoplasm of cecum; K62.1 Rectal polyp; D12.5 Benign neoplasm of sigmoid colon
CPT/HCPCS: 45385; 45381; 45380; 45384; 88305

== ENCOUNTER 2020-12-20 11:29 | Emergency (ER) | payer OTHER, SELFPAY ==
[2020-12-20 11:39] VITALS: BP 120/65; PULSE 66; RESP 16; TEMP 36.2; O2SAT 98
[2020-12-20 12:22] VITALS: RESP 16
--- NOTE | 2020-12-20 12:30 | W.ED.GENAD ---
Discharge Plan Disposition Patient Disposition: HOME Condition: Stable Discharge Details Clinical Impression: Acute dehydration, Headache Primary Care Provider: Mirian Malcolm ED Provider: Holley Novoa Home Meds and New Rx's Prescriptions: New ondansetron 4 mg tablet,disintegrating 4 mg PO Q8H PRN5 Days Qty: 15 RF: 0 Continued ascorbic acid (vitamin C) 500 MG tablet 500 mg PO DAILY RF: 0 lisinopril 20 MG tablet 20 mg PO DAILY Qty: 90 RF: 3 cyanocobalamin (vitamin B-12) 1,000 mcg capsule 1,000 mcg PO DAILY RF: 0 gabapentin 300 MG capsule 900 mg PO DAILY RF: 0 multivitamin Tablet 1 tab PO DAILY RF: 0 atorvastatin 10 mg Tablet 10 mg PO DAILY RF: 0 atenolol 100 mg Tablet 100 mg PO DAILY RF: 0 No Action vardenafil [Levitra] 20 mg tablet 20 mg PO DAILY RF: 0 Glucosamine Complex 500 mg Tablet 1 tab PO DAILY RF: 0 thiamine HCl (vitamin B1) 100 mg Tablet 100 mg PO DAILY RF: 0 citalopram [Celexa] 20 mg Tablet 20 mg PO DAILY RF: 0 Discharge Instructions Instructions: Dehydration (ED), General Headache (ED) Additional Instructions: Covid swab today was negative. Head CT shows no acute abnormality. Your labs are largely within normal limits however it does appear that you are dehydrated. I do suspect a viral illness. Take the nausea medications up to 3 times daily 20 minutes before eating or drinking anything. Follow up with primary care provider in 3-5 days. Return to ED sooner if any worsening abdominal pain, continued vomiting, continued headache or concerns. Increase oral fluids. Please take Tylenol 500 mg or Ibuprofen 400mg with food every 4-6 hours as needed for pain and swelling. Stand Alone Forms: Work Release Referrals: Mirian Malcolm [Primary Care Provider] - Discharge Data Discharge Date/Time-TO BE ENTERED AT DEPARTURE: 12/20/20 15:13 Medical Decision Making 50-year-old male presents to the ER chief complaint of dizziness, head explosive headache behind his eyes, fever, chills and diarrhea which is been on and off for the last week. His reports night sweats T-max at home 101. He has had 2 - recent Covid test. He reports that he does have coworkers that are positive for Covid. He denies any abdominal pain, no dysuria or problems urinating. He is a daily smoker, has a past medical history of colonic polyp, high cholesterol, hypertension. CBC, CMP, urinalysis, lipase, head CT and Covid swab ordered. CBC shows white blood cell count of 13.5, absolute neutrophils 10.77, chloride 97, anion gap 13.6 BUN 19 creatinine 1.4 Urinalysis shows trace ketones greater than 50 WBCs however there is squamous contamination, patient has no complaints of dysuria or problems urinating. EXAM: CT BRAIN NECK CTA CLINICAL HISTORY: explosive headache, fever, R/O SAH,. TECHNIQUE: Imaging Protocol: Axial CT angiography was performed with multi-slice acquisition and multi-planar and/or 3D reconstructions. CONTRAST MATERIAL: Intravenous: Omnipaque 350 Contrast volume:structured data in ml COMPARISON: CT CT CHEST/ABD/PEL W from 08/13/[address] HEAD CERVICAL SPINE WO from 08/13/2018 FINDINGS: CT Head W/O and W contrast: Ventricles and Extra axial spaces: Normal in size and morphology for the patient's age. Hemorrhage: None. Cerebral parenchyma: Stable appearing cystic area anteroinferior left temporal fossa which could represent in arachnoid cyst. Midline shift: None. Brainstem/Cerebellum: Normal. Calvarium: Normal. Visualized Paranasal sinuses/Mastoids: Clear. Soft Tissues: Unremarkable. Orbits unremarkable. Enhancement: Normal. IMPRESSION: 1. Normal CTA examination of the [place]. 2. Stable left temporal fossa arachnoid cyst. No evidence of hemorrhage or acute infarct. 3. Minimal plaque at the common carotid bulbs. No significant stenosis. No evidence of dissection.. Findings were called to Holley Muñoz of the emergency department after completion of the exam. EXAM: XR CHEST 1V IN DI DEPT CLINICAL HISTORY: Wheezing, fever PUI, R/O PNA TECHNIQUE: 2D digital imaging was performed. COMPARISON: CT CT CHEST/ABD/PEL W from 08/13/2018 FINDINGS: LUNGS: Scarring left lung base. No area of consolidation or effusion. No pneumothorax.. HEART: Normal. MEDIASTINUM: Normal. BONES: Degenerative disc changes. IMPRESSION: Left basilar scarring. No acute pulmonary findings. Discussed labs and imaging results with family and patient who verbalized understanding. Discussed return instructions. Patient given Zofran prescription to go and has received a liter of normal saline here in department instructed on increasing fluid. This text was generated using [employer] system, please disregard any oddities of phrase or misspellings. HPI General Mode of arrival: ambulatory. Date/Time Provider Initiated Documentation: 12/20/20 11:59. Limitations to Documentation: no limitations. Information obtained by: patient, family, RN notes reviewed and old records reviewed. HPI Narrative: 50-year-old male presents to the ER chief complaint of dizziness, head explosive headache behind his eyes, fever, chills and diarrhea which is been on and off for the last week. His reports night sweats T-max at home 101. He has had 2 - recent Covid test. He reports that he does have coworkers that are positive for Covid. He denies any abdominal pain, no dysuria or problems urinating. He is a daily smoker, has a past medical history of Ector's dementia polyps colonic polyp, high cholesterol, hypertension. Related Data Home Medications Medication Instructions Recorded Confirmed ascorbic acid (vitamin C) 500 mg PO DAILY 06/19/12 12/20/20 lisinopril 20 mg PO DAILY #90 tab-cap 06/19/12 12/20/20 gabapentin 900 mg PO DAILY 11/13/14 12/20/20 atenolol 100 mg PO DAILY 08/13/18 12/20/20 atorvastatin 10 mg PO DAILY 08/13/18 12/20/20 citalopram [Celexa] 20 mg PO DAILY 08/13/18 12/02/20 multivitamin 1 tab PO DAILY 08/13/18 12/20/20 thiamine HCl (vitamin B1) 100 mg PO DAILY 08/13/18 12/20/20 cyanocobalamin (vitamin B-12) 1,000 mcg PO DAILY 06/10/20 12/20/20 1,000 mcg capsule vardenafil 20 mg tablet 20 mg PO DAILY 06/10/20 12/20/20 glucosam-vit [id number]-Zn 1 tab PO DAILY 12/20/20 12/20/20 [Glucosamine Complex] ondansetron 4 mg PO Q8H PRN 5 Days #15 tab 12/20/20 Previous Rx's Medication Instructions Recorded ondansetron 4 mg PO Q8H PRN 5 Days #15 tab 12/20/20 Allergies Allergy/AdvReac Type Severity Reaction Status Date / Time No Known Allergies Allergy Verified 12/20/20 11:46 General Stated Complaint: GenMedical HANH: 2 Review of Systems Constitutional Constitutional: Reports as per HPI, Reports body ache(s), Reports chills, Reports fever(s), Reports headache(s) and Reports night sweats ENT Ears, Nose, Mouth, and Throat: Reports headache(s) Cardiovascular Cardiovascular: Denies chest pain, Reports diaphoresis, Denies syncope, Reports rapid heart rate and Denies dyspnea Respiratory Respiratory: Reports as per HPI, Denies cough, Denies hemoptysis and Denies dyspnea Gastrointestinal Gastrointestinal: Denies abdominal pain, Denies melena, Denies hematochezia, Denies coffee ground emesis, Reports diarrhea, Reports vomiting and Denies hematemesis Genitourinary Genitourinary: Denies difficulty urinating, Denies dysuria and Denies urinary frequency Neurologic Neurologic: Denies syncope and Reports headache(s) [facility] Medical History Multiple adenomatous polyps Pedunculated colonic polyp Surgical History History of colonoscopy with polypectomy (~10/07/20) Social History Smoking/Tobacco Use Status: Current every day Tobacco Type: cigarettes Smoking risk assessment performed?: Yes Alcohol Intake: current Alcohol Intake frequency: a few times a week Drug use: Occasionally Substance use type: does not use and marijuana Do you feel safe at home: Yes Do you feel safe in your relationship?: Yes Exam Narrative Exam Narrative: Constitutional: Alert and oriented x3. Appears stated age. Normal body habitus. Head: Normocephalic, no trauma. Eyes: Pupils PERRL, Red reflex noted, EOM's intact. Eyelids symmetrical without lesions, discharge, or swelling. ENT: Bilateral TM's WNL, External ear normal to inspection, no mastoid TTP, swelling, or erythema, Nasal turbinates WNL, no nasal discharge. Normal dentition, Posterior pharynx WNL, no exudate. Chest: RRR, Normal S1, S2, distal pulses intact. Resp: Lungs clear to auscultation bilaterally, no wheezes, rales, or rhonchi. Abdomen: Soft, non-distended, Normoactive bowel sounds all 4 quads. Musculoskeletal: Normal gait, 5/5 strength to all four extremities. Skin: No suspicious rashes or lesions. Capillary refill less than 2 sec. Neurologic: Cranial nerves II-XII intact. Alert and oriented x 3. Motor: No deficits noted. Sensory: Intact bilaterally all 4 extremities. Reflexes: DTR's intact bilaterally.. Hematologic/Lymphatic: No ecchymosis, no lymphadenopathy. Course Vital Signs Vital signs: Vital Signs Temperature 36.2 C L 12/20/20 11:39 Pulse 66 12/20/20 11:39 Respiratory Rate 16 12/20/20 11:39 Blood Pressure 120/65 12/20/20 11:39 Pulse Oximetry 98 12/20/20 11:39 Temperature 36.2 C L 12/20/20 11:39 Temperature Source Skin 12/20/20 11:39 Pulse 66 12/20/20 11:39 Respiratory Rate 16 12/20/20 12:22 Respiratory Effort 12/20/20 12:22 Respiratory Depth Normal 12/20/20 12:22 Respiratory Pattern Normal 12/20/20 12:22 Blood Pressure 120/65 12/20/20 11:39 Blood Pressure Position Sitting 12/20/20 11:39 Pulse Oximetry 98 12/20/20 11:39 Oxygen Delivery Method Room Air 12/20/20 11:39 Oxygen Flow Rate 0 12/20/20 11:39 Pain Level 7 12/20/20 11:39 Lab/Test Results Lab/Test Results: 12/20/20 12:04 Blood Blood Culture - Pending 12/20/20 12:04 Blood Blood Culture - Pending
[2020-12-20 12:56] LABS: Source Nasal/Nares
[2020-12-20 12:59] LABS: Abs Immature Grans 0.06 10^3/uL (0.0-0.06); Absolute Basophil Count 0.07 10^3/uL (0.0-0.2); Absolute Eosinophil Count 0.05 10^3/uL (0.0-0.7); Absolute Monocyte Count 0.85 10^3/uL (0.1-0.8); Absolute Neutrophil Count 10.77 10^3/uL (1.2-6.7); Basophils % 0.5; Eosinophils % 0.4; HCT 49.2 % (40.0-50.0); HGB 17.2 g/dL (13.5-17.5); Immature Grans % 0.4; Lymphocytes % 12.7; MCH 32.7 pg (27.0-33.0); MCV 93.5 fL (80-95); MPV 11.3 fL (8.0-11.0); Monocytes % 6.3; Neutrophils % 79.7; Nucleated RBC 0 %; Platelet Count 282 10^3/uL (130-400); RBC 5.26 10^6/uL (4.36-5.78); RDW 11.6 % (11.8-14.1); WBC 13.51 10^3/uL (4.4-10.8)
[2020-12-20 13:15] LABS: Absolute Lymphocyte Count 1.72 10^3/uL (1.2-3.4)
[2020-12-20] MEDS: Normal Saline 1,000 ML 1000 ML IV (13:15)
[2020-12-20 13:30] LABS: Bilirubin Small (Negative); Blood Negative (Negative); Clarity Sl Cloudy (Clear); Glucose Negative (Negative); Ketones Trace mg/dL (Negative); Leukocyte Esterase Negative (Negative); Nitrite Negative (Negative); Specific Gravity >= 1.030 (1.005-1.025); Urobilinogen 0.2 EU/dL (Up TO 0.2); pH 5.5 (5-8)
[2020-12-20] MEDS: Omnipaque 350 MG/ML 100 ML BTL 85 ML IJ (13:40)
[2020-12-20] MEDS: Normal Saline - Diluent 50 ML VIAL IV (13:43)
[2020-12-20 13:45] LABS: RBC 20-50 HPF (0-2); WBC >50 HPF (0-5)
[2020-12-20 13:46] LABS: Bacteria Many HPF (Negative); C & S Indicated? No/Sq. Contamination; Casts Negative LPF (Negative); Crystals Negative HPF (Negative); Epithelial Cells Few HPF (Negative); Mucus Heavy (Negative)
[2020-12-20 13:47] LABS: ALT 35 U/L (16-63); AST 19 U/L (15-37); Albumin 4.2 g/dL (3.4-5.0); Alkaline Phosphatase 80 U/L (46-116); Anion Gap 13.6 mmol/L (3-11); BUN 19 mg/dL (7-18); Bilirubin, Total 0.8 mg/dL (0.2-1.0); CO2 26.4 mmol/L (21.0-32.0); CREATININE 1.4 mg/dL (0.70-1.30); Calcium 9.4 mg/dL (8.5-10.1); Chloride 97 mmol/L (98-107); Estimated GFR 53.43 (mL/min/1.73m2); Glucose 190 mg/dL (74-106); Lipase 96 U/L (73-393); Magnesium 2.2 mg/dL (1.8-2.4); Potassium 3.5 mmol/L (3.5-5.1); Sodium 137 mmol/L (136-145); Total Protein 7.4 g/dL (6.4-8.2)
--- NOTE | 2020-12-20 13:50 | DI.CT_ITS ---
Exam(s) CT BRAIN NECK CTA EXAM: CT BRAIN NECK CTA CLINICAL HISTORY: explosive headache, fever, R/O SAH,. TECHNIQUE: Imaging Protocol: Axial CT angiography was performed with multi-slice acquisition and mu lti-planar and/or 3D reconstructions. CONTRAST MATERIAL: Intravenous: Omnipaque 350 Contrast volume:structured data in ml COMPARISON: CT CT CHEST/ABD/PEL W from 08/13/[address] HEAD CERVICAL SPINE WO from 08/13/2018 FINDINGS: CT Head W/O and W contrast: Ventricles and Extra axial spaces: Normal in size and morphology for the patient's age. Hemorrhage: None. Cerebral parenchyma: Stable appearing cystic area anteroinferior left temporal fossa which could rep resent in arachnoid cyst. Midline shift: None. Brainstem/Cerebellum: Normal. Calvarium: Normal. Visualized Paranasal sinuses/Mastoids: Clear. Soft Tissues: Unremarkable. Orbits unremarkable. Enhancement: Normal. CTA Brain W: Internal Carotid Arteries: Petrous: Normal. Cavernous: Normal. Cerebral: Normal. Middle Cerebral Arteries: Right: No aneurysm, occlusion or significant stenosis. Left: No aneurysm, occlusion or significant stenosis. Anterior Cerebral Arteries: Right: No aneurysm, occlusion or significant stenosis. Left: No aneurysm, occlusion or significant stenosis. Posterior cerebral Arteries: Right: No aneurysm, occlusion or significant stenosis. Left: No aneurysm, occlusion or significant stenosis. Vertebral Arteries: Right: No aneurysm, occlusion or significant stenosis. Left: No aneurysm, occlusion or significant stenosis. Basilar Artery: No aneurysm, occlusion or significant stenosis. CTA Neck W: Common Carotid: Right: No aneurysm, occlusion or significant stenosis. Minimal plaque common carotid bulb. Left: No aneurysm, occlusion or significant stenosis. Minimal plaque common carotid bulb. External Carotid: Right: No aneurysm, occlusion or significant stenosis. Left: No aneurysm, occlusion or significant stenosis. Internal Carotid: Right: No aneurysm, occlusion or significant stenosis. Left: No aneurysm, occlusion or significant stenosis. Vertebral Artery: Right: No aneurysm, occlusion or significant stenosis. Left: No aneurysm, occlusion or significant stenosis. Lung Apices: Normal. Bones: Normal. Soft Tissues: Normal. IMPRESSION: 1. Normal CTA examination of the [place]. 2. Stable left temporal fossa arachnoid cyst. No evidence of hemorrhage or acute infarct. 3. Minimal plaque at the common carotid bulbs. No significant stenosis. No evidence of dissection.. Findings were called to Holley Muñoz of the emergency department after completion of the exam. RADIATION DOSE DELIVERED: 2,339.61mGy.cm Total DLP DATA REPOSITORY: All CT scans at this facility are submitted to the National Radiology Data Registry (NRDR) Dose Index Registry (DIR) with the [employer] (ACR). RADIATION OPTIMIZATION: All CT scans at this facility use at least one of these dose optimization te chniques: automated exposure control; mA and/or kV adjustment per patient size (includes targeted exa ms where dose is matched to clinical indication); or iterative reconstruction.
--- NOTE | 2020-12-20 13:55 | DI.RAD_ITS ---
Exam(s) XR CHEST 1V IN DI DEPT EXAM: XR CHEST 1V IN DI DEPT CLINICAL HISTORY: Wheezing, fever PUI, R/O PNA TECHNIQUE: 2D digital imaging was performed. COMPARISON: CT CT CHEST/ABD/PEL W from 08/13/2018 FINDINGS: LUNGS: Scarring left lung base. No area of consolidation or effusion. No pneumothorax.. HEART: Normal. MEDIASTINUM: Normal. BONES: Degenerative disc changes. IMPRESSION: Left basilar scarring. No acute pulmonary findings. DATA REPOSITORY: RADIATION DOSE DELIVERED:
[2020-12-20] MEDS: Ondansetron 4 MG/2 ML VIAL IVP (14:04)
[2020-12-20 14:51] LABS: COVID-19 PCR Negative (Negative)
== END 2020-12-20 15:13 | disposition home or self-care (01) ==
PROVIDERS: Emergency Provider Registered Nurse Emergency; PCP Family Medicine
DX: E86.0 Dehydration (principal); R51.9 Headache, unspecified; R42 Dizziness and giddiness; R50.9 Fever, unspecified; Z20.822 Contact with and (suspected) exposure to COVID-19; Z03.818 Encounter for observation for suspected exposure to other biological agents ruled out
CPT/HCPCS: 36415; 70496; 70498; 80053; 83690; 87040; 87635; 96361; 96374; 99285; 71045; 81003; 81015; 83735; 85025; 99284; J2405; J3490

== ENCOUNTER 2021-04-17 02:25 | Outpatient (CLI) | payer OTHER, SELFPAY ==
[2021-04-17 11:36] LABS: Source Nasal/Nares
[2021-04-17 17:58] LABS: COVID-19 PCR Negative (Negative)
== END 2021-04-17 02:26 | disposition home or self-care (01) ==
LOC: LBO 02:25
PROVIDERS: PCP Family Medicine; Visit Provider Student in an Organized Health Care Education/Training Program
DX: Z20.822 Contact with and (suspected) exposure to COVID-19 (principal); Z01.818 Encounter for other preprocedural examination
CPT/HCPCS: 87635

== ENCOUNTER 2021-04-19 11:29 | Day surgery (SDC) | payer OTHER, SELFPAY ==
[2021-04-19 12:04] VITALS: BP 193/103; PULSE 57; RESP 16; TEMP 36.2; O2SAT 98
[2021-04-19 12:15] VITALS: BP 169/106; PULSE 58
[2021-04-19] MEDS: Lactated Ringers 1,000 ML 80 ML IV (12:42)
--- NOTE | 2021-04-19 13:02 | ANES.PREOP_ITS ---
General Info Date of Service Date Performed: 04/19/21 Height: 6 ft Weight: 116.3 kg Body Mass Index (BMI): 34.7 Surgical Procedure: Operation Date: 04/19/21 15:55 Proposed Procedure Side Surgeon p Cubital Tunnel Decompression, ECTR Right Darren Parrish MD Meds Allergies and Home Medications Allergies Allergy/AdvReac Type Severity Reaction Status Date / Time No Known Allergies Allergy Verified 04/19/21 11:57 Home Medication Medication Instructions Recorded ascorbic acid (vitamin C) 500 mg 500 mg PO DAILY 06/19/12 tablet lisinopril 20 mg tablet 20 mg PO DAILY #90 tab-cap 06/19/12 gabapentin 300 mg capsule 900 mg PO DAILY 11/13/14 atenolol 100 mg tablet 100 mg PO DAILY 08/13/18 atorvastatin 10 mg tablet 10 mg PO DAILY 08/13/18 citalopram 20 mg tablet (Celexa) 20 mg PO DAILY 08/13/18 multivitamin 1 tab PO DAILY 08/13/18 cyanocobalamin (vitamin B-12) 1,000 mcg PO DAILY 06/10/20 1,000 mcg capsule vardenafil 20 mg tablet (Levitra) 20 mg PO DAILY 06/10/20 glucosam-vit L-dttwpn-naar-Zn 500 1 tab PO DAILY 12/20/20 mg tablet Current Visit Medications: Current Medications Generic Name Dose Route Start Last Admin Trade Name Freq PRN Reason Stop Dose Admin Ringer's Solution 1,000 mls @ 80 mls/hr 04/19/21 06:00 04/19/21 12:42 IV 05/18/21 23:59 80 mls/hr INFUSION SWATHI Administration Cefazolin Sodium/Dextrose 2 gm in 50 mls @ 100 mls/hr 04/19/21 06:00 Ancef Duplex IVPB 04/19/21 16:00 PREOP SWATHI IV Miscellaneous Supplies 1 each 04/19/21 06:00 Iv Access IV 05/18/21 23:59 DIRECTED SWATHI Sodium Chloride 0 ml 04/19/21 06:00 Normal Saline Flush 10 Ml Syr IV 05/18/21 23:59 PRN PRN Sodium Chloride 0 ml 04/19/21 06:00 Normal Saline 10 Ml Vial IJ 05/18/21 23:59 DIRECTED PRN Sterile Water 0 ml 04/19/21 06:00 Water,Injection,Sterile 10 Ml Vial IJ 05/18/21 23:59 DIRECTED PRN [facility] Active Problems Active Problems: Problem Status Onset Code Cubital tunnel syndrome, bilateral G56.23 Carpal tunnel syndrome on both sides G56.03 Acute dehydration E86.0 Headache R51.9 Trigger finger M65.30 Trigger finger M65.30 Bilateral hand numbness R20.0 De Quervain'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 Multiple adenomatous polyps D36.9 Pedunculated colonic polyp K63.5 Varicose veins of both lower extremities I83.93 Hypertriglyceridemia E78.1 Prediabetes R73.03 Anger Alcohol abuse F10.10 Peripheral neuropathy G62.9 Smoker F17.200 Hypertension I10 Situational anxiety F41.8 Erectile dysfunction N52.9 Bilateral hearing loss H91.93 Screening for colon cancer Z12.11 Loose body of right elbow M24.021 Idiopathic peripheral neuropathy 06/25/13 G60.9 Medical History Active Problem List Carpal tunnel syndrome on both sides (Acute) Acute dehydration (Acute) Headache (Acute) Trigger finger (Acute) Trigger finger (Acute) Bilateral hand numbness (Acute) De Quervain's disease (radial styloid tenosynovitis) (Acute) Multiple adenomatous polyps (Acute) Pedunculated colonic polyp (Acute) Varicose veins of both lower extremities (Acute) Hypertriglyceridemia (Acute) Prediabetes (Acute) Anger (Acute) Alcohol abuse (Chronic) Peripheral neuropathy (Acute) Smoker (Acute) Hypertension (Chronic) Situational anxiety (Acute) Erectile dysfunction (Acute) Bilateral hearing loss (Acute) Screening for colon cancer (Acute) Idiopathic peripheral neuropathy (Acute 06/25/13) Medical History Comments:: Left lung upper = wheeze right lung lower - crackles marijuana smoke 4 days ago 12:15pm repeat BP 169/106 (right arm) Surgical History Surgical History History of colonoscopy with polypectomy (~10/07/20) Tobacco Smoking/Tobacco Use Status: Current every day Tobacco Type: cigarettes Alcohol Alcohol Intake: current Alcohol intake frequency: a few times a week Alcohol type: other Substance Use Substance use: Occasionally Substance use type: does not use and marijuana Details: Marijuana smoke 4 days ago Vital Signs and Lab Results Vital Signs Most Recent Vital Signs in EMR: Most Recent Vital Signs Temp Pulse Resp BP Pulse Ox 36.2 C L 58 L 16 169/106 H 98 04/19/21 12:04 04/19/21 12:15 04/19/21 12:04 04/19/21 12:15 04/19/21 12:04 Lab Results Blood Type / Crossmatch: No Data to Display Complete Blood Count: No Data to Display Complete Metabolic Panel: No Data to Display Liver Function Panel: No Data to Display Coagulation Panel: No Data to Display Cardiac Panel: No Data to Display Arterial Blood Gas: No Data to Display Venous Blood Gas: No Data to Display Pancreas Panel: No Data to Display Thyroid Panel: No Data to Display Infectious Disease: Coronavirus (COVID-19)(PCR) Negative (Negative) 04/17/21 10:28 04/17/21 Coronavirus 2019 Source Nasal/Nares 04/17/21 10:28 04/17/21 Blood Cultures: No Data to Display Toxicology Panel: No Data to Display Imaging and Studies Imaging and Studies Study information below may be from another EMR and interpreted by another provider. Please see original notes in EMR for more complete details. Pulmonary Function Summary: DATE OF SERVICE: March 16, 2015 Spirometry shows mild obstructive airway disease with significant bronchodilator response. Lung volumes show no evidence of restriction. Diffusion capacity normal. Airway resistance normal. IMPRESSION: Mild obstructive airway disease with significant bronchodilator response. Clinical correlation recommended. Anesthesia Assessment and Plan Anesthesia History Personal History: No History of Anesthesia Complications Family History: No Family History of Anesthesia Complications Exercise Tolerance Exercise Tolerance: Metabolic Equivalents>4 Pertinent Negatives Pertinent Negatives: No Symptoms of GERD, No Major Cardiovascular Symptoms or Complaints and No History of CVA/TIA Cardiac & Pulmonary Exam Cardiac Exam: Normal S1/S2 Heart Sounds Pulmonary Exam: Wheezing Present and Rales Present Cardiac and Pulmonary Comment:: Patient reports recently prescribed inhaler by PCP has not used as has not felt he needed. Significant inspiratory and expiratory wheezes, crackles right base. Implantable Cardiac Device Does patient have a Pacemaker or an ICD?: No Airway Exam Known Difficult Airway: No Mallampati Class: 3 Mouth Opening: Normal (> 3cm) Thyromental Distance: Less than 3 cm Neck Range of Motion: Full ROM Neck Circumference: Normal Teeth Condition: Normal Dentition ASA Classification ASA Score: ASA 3 Emergency Case?: No NPO Status NPO Status: NPO Clears >2 hours, Solids >8 hours Anesthesia Plan Resuscitation Status: Full Code Anesthesia Technique: General Anesthesia Airway Planned: Natural Airway Monitors Used: Standard Monitors
[2021-04-19 13:10] VITALS: BP 184/97; PULSE 56; RESP 18
[2021-04-19] MEDS: Albuterol/Ipratropium 3 ML UPD VIAL UPD (13:29)
--- NOTE | 2021-04-19 13:30 | NUR.NOTE ---
13:15 Noel Tomas [employer] assessed pt, asculatated lungs. Noted wheezing on inspiration and expiration. Ordered Duoneb stat. 13:30 Duoneb administered to pt. Tolerating well. Nursing Note:
[2021-04-19 13:31] VITALS: BMI 34.7
--- NOTE | 2021-04-19 13:49 | NUR.NOTE ---
Reassessment after duoneb. Faint expiratory wheezing right lung, left lung clear. Breathing easily on room air. States he doesn't feel any different. Nursing Note:
--- NOTE | 2021-04-19 13:56 | W.PREOPHP ---
Assessment and Plan Assessment and plan (1) Cubital tunnel syndrome, bilateral: Status: Acute (2) Carpal tunnel syndrome on both sides: Status: Acute Assessment and plan: Porsha is a 51yo male who has bilateral carpal and cubital tunnel syndrome. He has failed nonoperative options. With the positive nerve conduction studies, I recommended proceeding with cubital tunnel and carpal tunnel release. I would recommend we start on the right side first since this is the most symptomatic. I discussed the surgery with him. I reviewed the risks of the procedure to include bleeding, infection, pain, stiffness, recurrence, continued numbness, elbow sensitivity, nerve subluxation, need for repeat procedures. Despite these risks, he elects to proceed. We will do the right side today and then proceed with the left in 3-4 weeks. History of Present Illness Narrative: Porsha is a 51yo who has had persistent pain and numbness of the hands. His right is the worst. He is tender conduction studies which proved the carpal tunnel and cubital tunnel. He has tried conservative, nonoperative options and continues to be limited. He also has some hypersensitivity and a history of lateral epicondylitis. No chest pain or SOB. He does have hypertension and was hypertensive today in the [facility]. Review of Systems All systems reviewed & are unremarkable except as noted in HPI and below PFSH All Active Problems Cubital tunnel syndrome, bilateral (Acute) Carpal tunnel syndrome on both sides (Acute) Acute dehydration (Acute) Headache (Acute) Trigger finger (Acute) Trigger finger (Acute) Bilateral hand numbness (Acute) De Quervain's disease (radial styloid tenosynovitis) (Acute) Multiple adenomatous polyps (Acute) Pedunculated colonic polyp (Acute) Varicose veins of both lower extremities (Acute) Hypertriglyceridemia (Acute) Prediabetes (Acute) Anger (Acute) Alcohol abuse (Chronic) Peripheral neuropathy (Acute) Smoker (Acute) Hypertension (Chronic) Situational anxiety (Acute) Erectile dysfunction (Acute) Bilateral hearing loss (Acute) Screening for colon cancer (Acute) Idiopathic peripheral neuropathy (Acute 06/25/13) Surgical History History of colonoscopy with polypectomy (~10/07/20) Social History Smoking/Tobacco Use Status: Current every day Tobacco Type: cigarettes Smoking risk assessment performed?: Yes Alcohol Intake: current Alcohol Intake frequency: a few times a week Alcohol type: other Drug use: Occasionally Substance use type: does not use and marijuana Details: Marijuana smoke 4 days ago Do you feel safe at home: Yes Do you feel safe in your relationship?: Yes Meds Allergies and Home Medications Allergies Allergy/AdvReac Type Severity Reaction Status Date / Time No Known Allergies Allergy Verified 04/19/21 11:57 Home Medications Medication Instructions Recorded Confirmed Type ascorbic acid (vitamin C) 500 mg 500 mg PO DAILY 06/19/12 04/19/21 History tablet lisinopril 20 mg tablet 20 mg PO DAILY #90 tab-cap 06/19/12 04/19/21 History gabapentin 300 mg capsule 900 mg PO DAILY 11/13/14 04/19/21 History atenolol 100 mg tablet 100 mg PO DAILY 08/13/18 04/19/21 History atorvastatin 10 mg tablet 10 mg PO DAILY 08/13/18 04/19/21 History citalopram 20 mg tablet (Celexa) 20 mg PO DAILY 08/13/18 04/19/21 History multivitamin 1 tab PO DAILY 08/13/18 04/19/21 History cyanocobalamin (vitamin B-12) 1,000 mcg PO DAILY 06/10/20 04/19/21 History 1,000 mcg capsule vardenafil 20 mg tablet (Levitra) 20 mg PO DAILY 06/10/20 04/19/21 History glucosam-vit G-tjooue-yzrs-Zn 500 1 tab PO DAILY 12/20/20 04/19/21 History mg tablet Exam Resp Effort & Inspection: normal respiratory effort Auscultation: clear to auscultation bilaterally and wheezes (Mild wheezes left lower) Cardio Rate: regular rate Rhythm: regular rhythm Results Last Vital Signs Temp 36.2 C L 04/19/21 12:04 Pulse 56 L 04/19/21 13:10 Resp 18 04/19/21 13:10 BP 184/97 H 04/19/21 13:10 Pulse Ox 98 04/19/21 12:04
[2021-04-19] MEDS: ceFAZolin 2 GM/50 ML BAG IVPB (13:59)
--- NOTE | 2021-04-19 14:46 | PDOC.DSDIS_ITS ---
Discharge Plan Disposition Patient Disposition: HOME Condition: Good Discharge Details Reason For Visit: R ECTR/Cubital Tunnel Release Attending Provider: Darren Parrish Primary Care Provider: Mirian Malcolm Home Meds and New Rx's Prescriptions: New acetaminophen 500 mg tablet 1,000 mg PO TID Qty: 90 0RF hydrocodone-acetaminophen 5-325 mg tablet 1 tab PO Q6H PRN (Reason: pain) Qty: 6 0RF ibuprofen 600 mg tablet 600 mg PO TID PRN (Reason: pain) Qty: 90 0RF Continued ascorbic acid (vitamin C) 500 MG tablet 500 mg PO DAILY 0RF lisinopril 20 MG tablet 20 mg PO DAILY Qty: 90 3RF vardenafil [Levitra] 20 mg tablet 20 mg PO DAILY 0RF cyanocobalamin (vitamin B-12) 1,000 mcg capsule 1,000 mcg PO DAILY 0RF gabapentin 300 MG capsule 900 mg PO DAILY 0RF glucosam-vit J-ixzeup-ekai-Zn 500 mg Tablet 1 tab PO DAILY 0RF multivitamin Tablet 1 tab PO DAILY 0RF atorvastatin 10 mg Tablet 10 mg PO DAILY 0RF atenolol 100 mg Tablet 100 mg PO DAILY 0RF citalopram [Celexa] 20 mg Tablet 20 mg PO DAILY 0RF Discharge Instructions Additional Instructions: Cubital Tunnel Decompression Discharge Instructions Activity: You should stay in the sling for the first 2 weeks. You may come out of the sling for gentle motion and hygiene but should largely remain in the sling to allow the incision site to heal. Gentle motion of the elbow, hand, wrist, and fingers is okay and encouraged after the first few days, but no repetitive activites nor heavy lifting. You may apply ice. Medications: - You should take Tylenol and Ibuprofen around the clock. - You have been prescribed Hydrocodone for breakthrough pain. Dressings: - The initial surgical dressing should stay in place for 3 days. It may then be removed and kept clean and dry. You should cover with a light gauze dressing. - You may shower after 3 days and get the wound wet. Follow-up: 10 days Stand Alone Forms: Francois Hunt Tunnel Release Referrals: Darren Parrish MD [ [facility] STAFF PHYSICIAN] - Equipment/Supplies: Sling Activity:: Elevate Remove Dressings/Wound Care:: 72 hours Shower/Bathe:: 72 hours Diet:: As Tolerated Discharge Orders Discharge Orders: Discharge Order (Routine); Ordered 04/19/21 Ordered By: Anastacio Hill DS: Diagnosis Discharge Diagnosis (1) Cubital tunnel syndrome, bilateral: Status: Acute (2) Carpal tunnel syndrome on both sides: Status: Acute
[2021-04-19 14:53] VITALS: BP 135/85; PULSE 66; RESP 16; TEMP 35.7; O2SAT 94
--- NOTE | 2021-04-19 15:21 | W.ANESPOSTOP ---
Postoperative Evaluation Date, Time and Location Date Performed: 04/19/21 Time Performed: 15:00 Patient Location: Day Surgery Unit Vital Signs Most Recent Imported Vital Signs: Most Recent Vital Signs Temp Pulse Resp BP Pulse Ox 35.7 C L 66 16 135/85 94 04/19/21 14:53 04/19/21 14:53 04/19/21 14:53 04/19/21 14:53 04/19/21 14:53 Pain Score Most Recent Pain Score: Most Recent Pain Score Pain Level 0 04/19/21 14:53 Assessment Mental Status: Awake (Alert & Oriented to Patient Baseline) Airway and Respiratory Function: Patent airway with normal (patient baseline) respiratory exam Cardiovascular Function: Hemodynamically Stable Hydration Status: Adequately Hydrated Nausea & Vomiting: No Nausea or Vomiting Pain: Pt. Denies Any Pain Peripheral Nerve Block: Patient did not receive a nerve block
[2021-04-19 15:42] VITALS: BP 154/88; PULSE 64; RESP 18; TEMP 36.4; O2SAT 94
--- NOTE | 2021-04-19 21:44 | W.PM.OP ---
Date of service: 04/19/21 Time of Service: 14:45 Operative Note Operative Note DATE OF PROCEDURE: 04/19/21 PRE-OP DIAGNOSIS: Right Carpal Tunnel and Right Cubital Tunnel Syndrome POST-OP DIAGNOSIS: same PROCEDURE: Right Endoscopic Carpal Tunnel Release and Right Cubital Tunnel Decompression SURGEON: Darren Parrish Refer to Anesthesia Record ESTIMATED BLOOD LOSS: 5 PATHOLOGY: none sent TOURNIQUET TIME: 15 COMPLICATIONS: None Patient was transported to: PACU Patient's condition: stable Indications: Porsha is a 51 year old male who has had symptoms of carpal and cubital tunnel syndrome. Nonoperative treatment options had been trialed. Nerve conduction studies identified the carpal and cubital tunnel as the point of compression. Given failure of nonoperative treatments and persistent symptoms, I offered operative intervention. I reviewed the technical details of a carpal tunnel release and cubital tunnel decompression with possible anterior subcutaneous transposition. I reviewed the risk of the procedure to include bleeding, infection, pain, stiffness, nerve instability, damage to superficial nerves, persistent symptoms, and incomplete release. Despite these risks, the patient elected to proceed. Findings: The carpal tunnel was release with a standard endoscopic technique without difficulty and excellent visualization. There was a tightened cubital tunnel. The ulnar nerve was release from the first motor branch distally through the [place] of [place] proximally. Procedure Description: Porsha was greeted in the preoperative holding area where the correct side was identified and marked. The consent was reviewed with the patient and signed. The history and physical was updated. All questions were answered. He was taken back to the operating room. The patient was placed into the supine position on the operating room table with the right arm on an arm board. A nonsterile tourniquet was placed high onto the arm, into the axilla. All bony prominences were well padded. Prophylactic antibiotics in the form of Cefazolin were administered. The right arm was then prepped with Chloraprep and draped in a standard fashion with stockinette and extremity drape. A timeout to confirm correct identity, side and site, procedure, allergies, anesthesia, and medical concerns was performed. The surgical site was marked in the volar wrist creases in line with the radial border of the fourth ray. This area was anesthetized with approximately 6cc of 1% Lidocaine with Epinephrine. The surgical site about the medial elbow was drawn on the skin just posterior to the medial epicondyle borders. The planned surgical field was anesthetized with 1% Lidocaine with Epinephrine. The limb was then exsanguinated with an Esmarch. Starting with the carpal tunnel, the skin was incised with a 15 blade, approximately 1cm. The skin only was cut and the deeper tissue was dissected bluntly with a tenotomy scissor, avoiding passing nerve and venous structures. The fascia was penetrated and opened bluntly. A two-prong skin hook was placed under this proximal fascial edge. A series of hamate finders were used to identify and dilate the carpal tunnel. Synovial elevator was used to free synovial attachments to the underside of the transverse carpal ligament. My thumb was kept in the palm to daly the distal extent of the carpal tunnel and correctly position the hand. The Microaire endoscope was inserted without difficulty and without resistance. Excellent visualization showed horizontally running fibers of the transverse carpal ligament (TCL). The distal extent of the TCL was visualized and the end of the scope palpated with the thumb. The blade was elevated and withdrawn from distal to proximal. The TCL was split into two flaps. The endoscope was reinserted to confirm complete release and any remnant ligament was incised. The scope was withdrawn and the proximal aspect of the carpal tunnel was grossly inspected and appeared release with the median nerve visible. The antebrachial fascia at the level of the wrist was then freed from the overlying skin and then the underlying median nerve with blunt dissection. This was transected longitudinally for about 3cm proximal to the wrist incision. The wound was then irrigated with easy flow of irrigant distally and proximally. The incision was closed with a single 4-0 Nylon suture. . Attention was then turned to the cubital tunnel release. The skin of the medial elbow was incised only with the elbow in some flexion and on a bump. The deep tissue and subcutaneous fat was dissected with a tenotomy scissors trying to protect any branches of the medial antebrachial cutaneous nerve. Any branches that were identified were retracted out of the way. The ulnar nerve was palpated and identified. A small window into the cubital tunnel, sheath overlying the nerve, was created and the nerve was able to be palpated with the [place]. A Metzenbaum scissor was then used to open up the sheath starting with Gordon's ligament. I then worked distal over the ulnar nerve releasing any constraints against the nerve all the way to the fascia of the FCU muscle belly. This muscle belly was bluntly all the way down to the first motor branch of the ulnar nerve and the overlying fascia was incised. Likewise starting there at the medial epicondyle, I proceeded to work proximally to release any constraints over the ulnar nerve. This was taken all the way to the arcade of [place]. The medial intermuscular septum was also palpated and any sharp edges against the ulnar nerve were resected and released. After fully releasing the nerve it was inspected visually. I was also able to palpate the nerve fully and reach one finger up into the proximal and distal aspects to make sure there were no constraints against the nerve. A freer elevator was also used to slide easily against the ulnar nerve without any points of constriction. The arm was then taken through range of motion. The ulnar nerve did not sublux/dislocate out of its groove behind the lateral epicondyle. Therefore, no transposition was performed. The tourniquet was then deflated. Any areas of bleeding were cauterized with bipolar electrocautery. The wound was thoroughly irrigated. The deep tissue was closed with a 3-0 Vicryl. The skin was closed with a 4-0 nylon. The wounds were dressed with Xeroform, 4 x 4's, ABD, Kerlix and an Jhon wrap. He was placed into a sling. Porsha was transferred back to the PACU in a stable condition.
== END 2021-04-19 15:59 | disposition home or self-care (01) ==
PROVIDERS: PCP Family Medicine; Visit Provider Student in an Organized Health Care Education/Training Program
PROC: (CPT 29848; principal; 2021-04-19 15:45)
DX: G56.23 Lesion of ulnar nerve, bilateral upper limbs (principal); G56.03 Carpal tunnel syndrome, bilateral upper limbs
CPT/HCPCS: 29848; 64718; J0690; J1100; J1885; J2001; J2250; J2405; J2704; J7620

== ENCOUNTER 2021-06-12 02:36 | Outpatient (CLI) | payer OTHER, SELFPAY ==
[2021-06-12 12:04] LABS: Source Nasal/Nares
[2021-06-12 15:36] LABS: COVID-19 PCR Negative (Negative)
== END 2021-06-12 02:37 | disposition home or self-care (01) ==
LOC: LBO 02:36
PROVIDERS: PCP Family Medicine; Visit Provider Student in an Organized Health Care Education/Training Program
DX: Z20.822 Contact with and (suspected) exposure to COVID-19 (principal); Z01.818 Encounter for other preprocedural examination
CPT/HCPCS: 87635

== ENCOUNTER 2021-06-13 13:00 | Day surgery (SDC) | payer OTHER, SELFPAY ==
--- NOTE | 2021-06-13 12:40 | W.PM.DSUDISC ---
Discharge Plan Disposition Patient Disposition: HOME Condition: Stable Discharge Details Reason For Visit: Left ECTR and cubital tunnel release Attending Provider: Darren Parrish Primary Care Provider: Mirian Malcolm Home Meds and New Rx's Prescriptions: Continued ascorbic acid (vitamin C) 500 MG tablet 500 mg PO DAILY 0RF lisinopril 20 MG tablet 20 mg PO DAILY Qty: 90 3RF vardenafil [Levitra] 20 mg tablet 20 mg PO DAILY 0RF cyanocobalamin (vitamin B-12) 1,000 mcg capsule 1,000 mcg PO DAILY 0RF gabapentin 300 MG capsule 900 mg PO DAILY 0RF glucosam-vit V-tjmwsc-qoub-Zn 500 mg Tablet 1 tab PO DAILY 0RF acetaminophen 500 mg tablet 1,000 mg PO TID Qty: 90 0RF hydrocodone-acetaminophen 5-325 mg tablet 1 tab PO Q6H PRN (Reason: pain) Qty: 6 0RF ibuprofen 600 mg tablet 600 mg PO TID PRN (Reason: pain) Qty: 90 0RF multivitamin Tablet 1 tab PO DAILY 0RF atorvastatin 10 mg Tablet 10 mg PO DAILY 0RF atenolol 100 mg Tablet 100 mg PO DAILY 0RF citalopram [Celexa] 20 mg Tablet 20 mg PO DAILY 0RF Discharge Instructions Stand Alone Forms: Francois Hunt Tunnel Release Referrals: Darren Parrish MD [ [facility] STAFF PHYSICIAN] - Activity:: Activity as Tolerated Remove Dressings/Wound Care:: 72 hours Shower/Bathe:: 72 hours Diet:: As Tolerated Discharge Orders Discharge Orders: Discharge Order (Routine); Ordered 06/13/21 Ordered By: Ruthie Dias DS: Diagnosis Discharge Diagnosis (1) Cubital tunnel syndrome, bilateral: Status: Acute (2) Carpal tunnel syndrome on both sides: Status: Acute
[2021-06-13 13:20] VITALS: BP 163/92; PULSE 63; RESP 18; TEMP 36.7; O2SAT 97
--- NOTE | 2021-06-13 13:39 | W.ANESPRE ---
General Info Date of Service Date Performed: 06/13/21 Height: 6 ft Weight: 120.5 kg Body Mass Index (BMI): 36.0 Surgical Procedure: Operation Date: 06/13/21 16:25 Proposed Procedure Side Surgeon p Wrist ECTR Left Darren Parrish MD s Elbow Ulna Nerve Decompression Left Darren Parrish MD Meds Allergies and Home Medications Allergies Allergy/AdvReac Type Severity Reaction Status Date / Time No Known Allergies Allergy Verified 05/26/21 11:37 Home Medication Medication Instructions Recorded ascorbic acid (vitamin C) 500 mg 500 mg PO DAILY 06/19/12 tablet lisinopril 20 mg tablet 20 mg PO DAILY #90 tab-cap 06/19/12 gabapentin 300 mg capsule 900 mg PO DAILY 11/13/14 atenolol 100 mg tablet 100 mg PO DAILY 08/13/18 atorvastatin 10 mg tablet 10 mg PO DAILY 08/13/18 citalopram 20 mg tablet (Celexa) 20 mg PO DAILY 08/13/18 multivitamin 1 tab PO DAILY 08/13/18 cyanocobalamin (vitamin B-12) 1,000 mcg PO DAILY 06/10/20 1,000 mcg capsule vardenafil 20 mg tablet (Levitra) 20 mg PO DAILY 06/10/20 glucosam-vit T-rmghpn-dwuu-Zn 500 1 tab PO DAILY 12/20/20 mg tablet acetaminophen 500 mg tablet 1,000 mg PO TID #90 tab 04/19/21 hydrocodone 5 mg-acetaminophen 325 1 tab PO Q6H PRN #6 tab 04/19/21 mg tablet ibuprofen 600 mg tablet 600 mg PO TID PRN #90 tab 04/19/21 Current Visit Medications: Current Medications Generic Name Dose Route Start Last Admin Trade Name Freq PRN Reason Stop Dose Admin Acetaminophen 650 mg 06/13/21 12:38 Acetaminophen 325 Mg Tab PO Q4H PRN PRN Ringer's Solution 1,000 mls @ 80 mls/hr 06/13/21 06:00 IV 06/24/21 23:59 INFUSION SWATHI Cefazolin Sodium/Dextrose 2 gm in 50 mls @ 100 mls/hr 06/13/21 06:00 Ancef Duplex IVPB 06/13/21 23:59 PREOP SWATHI Ondansetron HCl 4 mg/ Sodium 52 mls @ 200 mls/hr 06/13/21 12:38 Chloride IVPB Q6H PRN PRN IV Miscellaneous Supplies 1 each 06/13/21 06:00 Iv Access IV 06/24/21 23:59 DIRECTED SWATHI Oxycodone HCl 5 mg 06/13/21 12:38 Oxycodone 5 Mg Tab PO Q3H PRN PRN Pain Sodium Chloride 0 ml 06/13/21 06:00 Normal Saline Flush 10 Ml Syr IV 06/24/21 23:59 PRN PRN Sodium Chloride 0 ml 06/13/21 06:00 Normal Saline 10 Ml Vial IJ 06/24/21 23:59 DIRECTED PRN Sterile Water 0 ml 06/13/21 06:00 Water,Injection,Sterile 10 Ml Vial IJ 06/24/21 23:59 DIRECTED PRN PFSH Active Problems Active Problems: Problem Status Onset Code Idiopathic peripheral neuropathy 06/25/13 G60.9 Loose body of right elbow M24.021 Screening for colon cancer Z12.11 Bilateral hearing loss H91.93 Erectile dysfunction N52.9 Situational anxiety F41.8 Hypertension I10 Smoker F17.200 Peripheral neuropathy G62.9 Alcohol abuse F10.10 Anger Prediabetes R73.03 Hypertriglyceridemia E78.1 Varicose veins of both lower extremities I83.93 Multiple adenomatous polyps D36.9 Pedunculated colonic polyp K63.5 De Quervain'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 Bilateral hand numbness R20.0 Trigger finger M65.30 Trigger finger M65.30 Acute dehydration E86.0 Headache R51.9 Carpal tunnel syndrome on both sides G56.03 Cubital tunnel syndrome, bilateral G56.23 Medical History Medical History (Updated 06/13/21 @ 13:39 by Neeru Bolton RN) Hx of fracture of left hip antonette implanted Medical History Comments:: 06/13/21 Pt has diminished lung sounds in all field, w/ expiratory wheeze in RLL. Pt has elevated BP, but states this is normal preop, also no Lisinopril today. Left lung upper = wheeze right lung lower - crackles marijuana smoke 4 days ago 12:15pm repeat BP 169/106 (right arm) Surgical History Surgical History (Updated 06/13/21 @ 13:39 by Neeru Che, RN) History of colonoscopy with polypectomy (~10/07/20) Hx of appendectomy Hx of arthroscopic knee surgery x2 left, and a full reconstruction mcl/pcl/w/ cadaveur ligament. Hx of elbow surgery b/l tennis elbow and removal bone on R. Hx of shoulder surgery L shoulder impingement, labral tear, cyst removal Tobacco Smoking/Tobacco Use Status: Current every day Tobacco Type: cigarettes Alcohol Alcohol Intake: current Alcohol intake frequency: a few times a week Alcohol type: other Substance Use Substance use: Occasionally Substance use type: does not use and marijuana Details: Marijuana smoked last 06/10/21 for pain/neuropathy.HE Vital Signs and Lab Results Vital Signs Most Recent Vital Signs in EMR: Most Recent Vital Signs Temp Pulse Resp BP Pulse Ox 36.7 C 63 18 163/92 H 97 06/13/21 13:20 06/13/21 13:20 06/13/21 13:20 06/13/21 13:20 06/13/21 13:20 Lab Results Blood Type / Crossmatch: No Data to Display Complete Blood Count: No Data to Display Complete Metabolic Panel: No Data to Display Liver Function Panel: No Data to Display Coagulation Panel: No Data to Display Cardiac Panel: No Data to Display Arterial Blood Gas: No Data to Display Venous Blood Gas: No Data to Display Pancreas Panel: No Data to Display Thyroid Panel: No Data to Display Infectious Disease: Coronavirus (COVID-19)(PCR) Negative (Negative) 06/12/21 08:29 06/12/21 Coronavirus 2019 Source Nasal/Nares 06/12/21 08:29 06/12/21 Blood Cultures: No Data to Display Toxicology Panel: No Data to Display Imaging and Studies Imaging and Studies Study information below may be from another EMR and interpreted by another provider. Please see original notes in EMR for more complete details. Pulmonary Function Summary: DATE OF SERVICE: March 16, 2015 Spirometry shows mild obstructive airway disease with significant bronchodilator response. Lung volumes show no evidence of restriction. Diffusion capacity normal. Airway resistance normal. IMPRESSION: Mild obstructive airway disease with significant bronchodilator response. Clinical correlation recommended. Anesthesia Assessment and Plan Anesthesia History Personal History: No History of Anesthesia Complications Family History: No Family History of Anesthesia Complications Exercise Tolerance Exercise Tolerance: Metabolic Equivalents>4 Pertinent Negatives Pertinent Negatives: No Symptoms of GERD, No Major Cardiovascular Symptoms or Complaints, No Major Pulmonary Symptoms or Complaints and Other (Neuropathy in feet) Cardiac & Pulmonary Exam Cardiac Exam: Normal S1/S2 Heart Sounds Pulmonary Exam: Wheezing Present (LLL expiratory) Implantable Cardiac Device Does patient have a Pacemaker or an ICD?: No Airway Exam Known Difficult Airway: No Mallampati Class: 3 Mouth Opening: Normal (> 3cm) Thyromental Distance: Less than 3 cm Facial Hair: Full [place] Neck Range of Motion: Full ROM Neck Circumference: Normal Teeth Condition: Normal Dentition ASA Classification ASA Score: ASA 2 Emergency Case?: No NPO Status NPO Status: NPO Clears >2 hours, Solids >8 hours Anesthesia Plan Resuscitation Status: Full Code Anesthesia Technique: General Anesthesia Airway Planned: Natural Airway Monitors Used: Standard Monitors
[2021-06-13 13:51] VITALS: BMI 36.0
[2021-06-13] MEDS: Lactated Ringers 1,000 ML 80 ML IV (13:53)
[2021-06-13] MEDS: ceFAZolin 2 GM/50 ML BAG IVPB (14:06)
[2021-06-13 15:05] VITALS: BP 120/77; PULSE 61; RESP 18; TEMP 36.4; O2SAT 96
--- NOTE | 2021-06-13 15:09 | W.ANESPOSTOP ---
Postoperative Evaluation Date, Time and Location Date Performed: 06/13/21 Time Performed: 15:09 Patient Location: Day Surgery Unit Vital Signs Most Recent Imported Vital Signs: Most Recent Vital Signs Temp Pulse Resp BP Pulse Ox 36.7 C 63 18 163/92 H 97 06/13/21 13:20 06/13/21 13:20 06/13/21 13:20 06/13/21 13:20 06/13/21 13:20 Pain Score Most Recent Pain Score: Most Recent Pain Score Pain Level 4 06/13/21 13:20 Assessment Mental Status: Arousable with meaningful communication Airway and Respiratory Function: Patent airway with normal (patient baseline) respiratory exam Cardiovascular Function: Hemodynamically Stable Hydration Status: Adequately Hydrated Nausea & Vomiting: No Nausea or Vomiting Pain: Pt. Denies Any Pain Peripheral Nerve Block: Patient did not receive a nerve block
[2021-06-13 15:39] VITALS: BP 134/78; PULSE 60; RESP 18; TEMP 36.5
--- NOTE | 2021-06-13 21:32 | W.PM.OP ---
Date of service: 06/13/21 Time of Service: 14:50 Operative Note Operative Note DATE OF PROCEDURE: 06/13/21 PRE-OP DIAGNOSIS: Left Carpal Tunnel and Left Cubital Tunnel Syndrome and Left Little Finger Trigger Finger POST-OP DIAGNOSIS: same PROCEDURE: Left Endoscopic Carpal Tunnel Release and Left Cubital Tunnel Decompression and Left Little Finger a1 Zoltan Release SURGEON: Darren Parrish ANESTHESIA TYPE: General:No Airway Refer to Anesthesia Record ESTIMATED BLOOD LOSS: 0 PATHOLOGY: none sent TOURNIQUET TIME: 24 COMPLICATIONS: None Patient was transported to: PACU Patient's condition: stable Indications: Porsha is a 51-year-old male who has had symptoms of carpal and cubital tunnel syndrome. Nonoperative treatment options had been trialed. Nerve conduction studies identified the carpal and cubital tunnel as the point of compression. Given failure of nonoperative treatments and persistent symptoms, I offered operative intervention. I reviewed the technical details of a carpal tunnel release and cubital tunnel decompression with possible anterior subcutaneous transposition. I reviewed the risk of the procedure to include bleeding, infection, pain, stiffness, nerve instability, damage to superficial nerves, persistent symptoms, and incomplete release. Despite these risks, the patient elected to proceed. Additionally, he has had worsening triggering and pain about the little finger. Therefore I offered trigger finger release today during the surgery. Findings: The carpal tunnel was release with a standard endoscopic technique without difficulty and excellent visualization. The trigger finger of the left little finger was released with a notable fluid collection which was also evacuated. There was a tightened cubital tunnel. The ulnar nerve was release from the first motor branch distally through the [place] proximally. Procedure Description: Porsha was greeted in the preoperative holding area where the correct side was identified and marked. The consent was reviewed with the patient and signed. The history and physical was updated. All questions were answered. Porsha was taken back to the operating room. The patient was placed into the supine position on the operating room table with the left arm on an arm board. A nonsterile tourniquet was placed high onto the arm, into the axilla. All bony prominences were well padded. Prophylactic antibiotics in the form of Cefazolin were administered. The right arm was then prepped with Chloraprep and draped in a standard fashion with stockinette and extremity drape. A timeout to confirm correct identity, side and site, procedure, allergies, anesthesia, and medical concerns was performed. The surgical site was marked in the volar wrist creases in line with the radial border of the fourth ray. This area was anesthetized with approximately 6cc of 1% Lidocaine with Epinephrine. Likewise, the postsurgical site about the left little finger for the trigger release was also anesthetized in a similar fashion. The surgical site about the medial elbow was drawn on the skin just posterior to the medial epicondyle borders. The planned surgical field was anesthetized with 1% Lidocaine with Epinephrine. The limb was then exsanguinated with an Esmarch. Starting with the carpal tunnel, the skin was incised with a 15 blade, approximately 1cm. The skin only was cut and the deeper tissue was dissected bluntly with a tenotomy scissor, avoiding passing nerve and venous structures. The fascia was penetrated and opened bluntly. A two-prong skin hook was placed under this proximal fascial edge. A series of hamate finders were used to identify and dilate the carpal tunnel. Synovial elevator was used to free synovial attachments to the underside of the transverse carpal ligament. My thumb was kept in the palm to daly the distal extent of the carpal tunnel and correctly position the hand. The Microaire endoscope was inserted without difficulty and without resistance. Excellent visualization showed horizontally running fibers of the transverse carpal ligament (TCL). The distal extent of the TCL was visualized and the end of the scope palpated with the thumb. The blade was elevated and withdrawn from distal to proximal. The TCL was split into two flaps. The endoscope was reinserted to confirm complete release and any remnant ligament was incised. The scope was withdrawn and the proximal aspect of the carpal tunnel was grossly inspected and appeared release with the median nerve visible. The antebrachial fascia at the level of the wrist was then freed from the overlying skin and then the underlying median nerve with blunt dissection. This was transected longitudinally for about 3cm proximal to the wrist incision. The wound was then irrigated with easy flow of irrigant distally and proximally. The incision was closed with a single 4-0 Nylon suture. Attention was then turned to the little finger. A longitudinal incision approximately 1 to 1-1/2 cm was then made. Sharp dissection is carried at the skin. Blunt dissection was carried down to the level of the flexor tendon sheath. The A1 zoltan was identified. Using a scissor the zoltan was released. There was a schulz of fluid at this point. Further inspection was carried down proximally and distally to make sure there is no other attachments of the tendons. The tendon was withdrawn from the wound and showed no significant signs of tearing. The tendons were returned and the wound was irrigated. The skin was closed with a single 4-0 nylon suture. Attention was then turned to the cubital tunnel release. The skin of the medial elbow was incised only with the elbow in some flexion and on a bump. The deep tissue and subcutaneous fat was dissected with a tenotomy scissors trying to protect any branches of the medial antebrachial cutaneous nerve. Any branches that were identified were retracted out of the way. The ulnar nerve was palpated and identified. A small window into the cubital tunnel, sheath overlying the nerve, was created and the nerve was able to be palpated with the [place]. A Metzenbaum scissor was then used to open up the sheath starting with Gordon's ligament. I then worked distal over the ulnar nerve releasing any constraints against the nerve all the way to the fascia of the FCU muscle belly. This muscle belly was bluntly all the way down to the first motor branch of the ulnar nerve and the overlying fascia was incised. Likewise starting there at the medial epicondyle, I proceeded to work proximally to release any constraints over the ulnar nerve. This was taken all the way to the [place] of [place]. The medial intermuscular septum was also palpated and any sharp edges against the ulnar nerve were resected and released. After fully releasing the nerve it was inspected visually. I was also able to palpate the nerve fully and reach one finger up into the proximal and distal aspects to make sure there were no constraints against the nerve. A freer elevator was also used to slide easily against the ulnar nerve without any points of constriction. The arm was then taken through range of motion. The ulnar nerve did not sublux/dislocate out of its groove behind the lateral epicondyle. Therefore, no transposition was performed. The tourniquet was then deflated. Any areas of bleeding were cauterized with bipolar electrocautery. The wound was thoroughly irrigated. The deep tissue was closed with a 3-0 Vicryl. The skin was closed with a 4-0 nylon. The wounds were dressed with Xeroform, 4 x 4's, ABD, Kerlix and an Jhon wrap. Akil was placed into a sling. Porsha was transferred back to the PACU in a stable condition.
== END 2021-06-13 16:04 | disposition home or self-care (01) ==
LOC: SUR 13:01
PROVIDERS: PCP Family Medicine; Visit Provider Student in an Organized Health Care Education/Training Program
PROC: 01N54ZZ Release Median Nerve, Percutaneous Endoscopic Approach (ICD-10-PCS; CPT 29848; principal; 2021-06-13 16:15)
PROC: (CPT 64718; 2021-06-13 16:15)
DX: M65.352 Trigger finger, left little finger (principal); G56.03 Carpal tunnel syndrome, bilateral upper limbs; G56.23 Lesion of ulnar nerve, bilateral upper limbs; R73.03 Prediabetes; E78.1 Pure hyperglyceridemia; G62.9 Polyneuropathy, unspecified; I10 Essential (primary) hypertension
CPT/HCPCS: 64718; 29848; 26055; J0690; J1885; J2001; J2405; J2704

== ENCOUNTER 2021-07-10 13:57 | Outpatient (CLI) | payer OTHER, SELFPAY ==
--- NOTE | 2021-07-10 13:15 | DI.RAD_ITS ---
Exam(s) XR WRIST RT COMPLETE EXAM: XR WRIST RT COMPLETE CLINICAL HISTORY: swelling. TECHNIQUE: 2D digital imaging was performed of the right wrist. Three views were obtained. PA, lat eral and oblique views were obtained. COMPARISON: No exams were available for comparison FINDINGS: BONES: No acute fracture is present. No bony destructive lesion is seen. There is a well-circumscribe d osseous density in the dorsal aspect of the wrist which appears old. JOINTS: The carpal bones are normally aligned. SOFT TISSUE: Normal. IMPRESSION: No acute abnormality. DATA REPOSITORY: RADIATION DOSE DELIVERED:
== END 2021-07-10 13:58 | disposition home or self-care (01) ==
LOC: DIORS 13:59
PROVIDERS: PCP Family Medicine; Referring Provider Family Medicine; Visit Provider Physician Assistant Surgical
DX: M79.641 Pain in right hand (principal); M25.531 Pain in right wrist; M79.89 Other specified soft tissue disorders
CPT/HCPCS: 73110

== ENCOUNTER 2022-01-02 07:46 | Day surgery (SDC) | payer OTHER, SELFPAY ==
--- NOTE | 2022-01-02 06:04 | W.PM.DSUDISC ---
Date of service: 01/02/22 Time of Service: 10: Discharge Plan Disposition Patient Disposition: HOME Condition: Good Discharge Details Reason For Visit: screening colonoscopy Attending Provider: Matt Collins Primary Care Provider: Mirian Malcolm Home Meds and New Rx's Prescriptions: Continued ascorbic acid (vitamin C) 500 MG tablet 500 mg PO DAILY lisinopril 20 MG tablet 20 mg PO DAILY Qty: 90 vardenafil [Levitra] 20 mg tablet 20 mg PO DAILY gabapentin 300 MG capsule 900 mg PO DAILY glucosam-vit L-keeucj-ddnb-Zn 500 mg Tablet 1 tab PO DAILY ibuprofen 600 mg tablet 600 mg PO TID PRN (Reason: pain) Qty: 90 0RF multivitamin Tablet 1 tab PO DAILY atorvastatin 10 mg Tablet 10 mg PO DAILY atenolol 100 mg Tablet 100 mg PO DAILY citalopram [Celexa] 20 mg Tablet 20 mg PO DAILY Discontinued polyethylene glycol 3350 17 gram/dose powder 238 g PO ONCE Qty: 238 0RF Rx Instructions: take per colonoscopy instructions bisacodyl [Dulcolax (bisacodyl)] 5 mg tablet,delayed release (DR/EC) 5 mg PO ONCE Qty: 4 0RF Rx Instructions: take per colonoscopy instructions Discharge Instructions Instructions: Colorectal Polyps (DC) Additional Instructions: 1. If tolerated, consume a soft, low fiber diet for 1-2 days. 2[address] Do not drive, drink alcohol, operate machinery, make critical decisions, or do activities that require coordination or balance for 24 hours. 3. Because air was put into your colon during the procedure, expelling air from your rectum (passing gas or farting) is normal. 4. You may not have a bowel movement for 1-3 days because of the colonoscopy prep. This is normal. 5. Go directly to the emergency room if you notice any of the following: Develop chills (warm to touch), or if you have a thermometer and your temperature is above 101 Difficulty breathing or difficultly swallowing Persistent vomiting Severe abdominal pain, other than gas cramps Severe chest pain Black, tarry stools Any bleeding ? exceeding one tablespoon 6. Call your physician if the site where your intravenous was started becomes red, swollen, painful, and warm to touch. 7. Your physician has reviewed your pre-procedure medications. Please continue to take those medications as previously ordered. You will be given specific information/education regarding any changes to your medications before leaving. Activity:: Activity as Tolerated Diet:: As Tolerated Discharge Orders Discharge Orders: Discharge Order (Routine); Ordered 01/02/22 Ordered By: Matt Collins DS: Diagnosis Discharge Diagnosis (1) Colon polyp: Status: Acute Asessment and Plan: I will contact you with results of the biopsies to help make a plan moving
--- NOTE | 2022-01-02 06:06 | W.COLOREPORT ---
Date of service: 01/02/22 Time of Service: :24 Colonoscopy Report Date of procedure: 01/02/22 Pre-op diagnosis general: Colorectal polyps Post-op diagnosis procedure note: same Procedure: Colonoscopy Surgeon: Matt Collins Anesthesia Type: General:No Airway Estimated blood loss (mL): 30 Pathology: other (5 colon polyps) Complications: None Disposition: same day Indications: Follow-up screening colonoscopy Prep: Miralax/Dulcolax Procedure Start Time: 09:38 Procedure End Time: 10:06 Retraction Time: 24 Findings: Periappendiceal polyp, large polyps at 100 cm x2, small polyp at 100 cm, small polyp at 80 cm, small polyp at 20 cm Procedure Description: After the induction of monitored anesthetic care, and with the patient in left lateral decubitus position, I began by performing an external anorectal exam.? Perineum and skin were normal, as was the anal verge.? There was mild evidence of external hemorrhoids.? Next, I performed a digital rectal exam.? I did not appreciate any abnormal findings.? Next, I advanced a colonoscope into the rectal vault.? I performed retroflexion.? I did not see signs of pathologic internal hemorrhoids.? Using insufflation, I then advanced the colonoscope beyond the rectal folds and into the sigmoid colon before advancing towards the cecum.? The quality of the prep was excellent.? The scope was noted to be in the cecum by identification of the ileocecal valve and appendiceal orifice.? There was a 0.5 cm polyp immediately adjacent to the appendiceal orifice. I performed a polypectomy using cold forceps. There was minimal bleeding. I then began withdrawing the colonoscope using repeated irrigation as necessary for full evaluation of the colonic mucosa. Around 100 cm from the anal verge I identified a 1 cm polyp. ?It appeared sessile in character. ?I was able to remove this with a cold snare. ?I examined the site, and there was minimal bleeding. In very close proximity to this, there was a second 1 cm polyp that was also sessile in character. This was also retrieved with a cold snare polypectomy. There was minimal bleeding here. Also in close proximity was a 0.25 cm polyp that I removed with cold forcep polypectomy. There was no bleeding at that site. Around 80 cm from the anal verge, there was a 0.5 cm polyp that I was able to remove with cold forceps. Once this was completed, I continued to withdraw the scope and examine the remainder of the colonic mucosa.?Once the scope was withdrawn to the level of the rectum, great care was taken to examine portions of the rectal folds.?Around 20 cm from the anal verge I identified a 0.5 cm polyp. ?It appeared sessile in character. ?I was able to remove this with a cold forcep. ?I examined the site, and there was minimal bleeding. ?Once this was completed, I continued to withdraw the scope and examine the remainder of the colonic mucosa. Finally, the scope was withdrawn and the patient was brought to the same-day surgery recovery unit as the anesthetic wore off. ?The findings and instructions were shared with the patient prior to discharge.
[2022-01-02 08:12] VITALS: BP 146/83; PULSE 58; RESP 18; TEMP 36.5; O2SAT 97
[2022-01-02] MEDS: Lactated Ringers 1,000 ML 80 ML IV (08:29)
--- NOTE | 2022-01-02 09:19 | W.ANESPRE ---
General Info Date of Service Date Performed: 01/02/22 Height: 6 ft Weight: 119.7 kg Body Mass Index (BMI): 35.8 Surgical Procedure: Operation Date: 01/02/22 09:20 Proposed Procedure Side Surgeon inge Collins MD Meds Allergies and Home Medications Allergies Allergy/AdvReac Type Severity Reaction Status Date / Time No Known Allergies Allergy Verified 01/02/22 08:08 Home Medication Medication Instructions Recorded ascorbic acid (vitamin C) 500 mg 500 mg PO DAILY 06/19/12 tablet lisinopril 20 mg tablet 20 mg PO DAILY #90 tab-caps 06/19/12 gabapentin 300 mg capsule 900 mg PO DAILY 11/13/14 atenolol 100 mg tablet 100 mg PO DAILY 08/13/18 atorvastatin 10 mg tablet 10 mg PO DAILY 08/13/18 citalopram 20 mg tablet (Celexa) 20 mg PO DAILY 08/13/18 multivitamin 1 tab PO DAILY 08/13/18 vardenafil 20 mg tablet (Levitra) 20 mg PO DAILY 06/10/20 glucosam-vit R-ubisgg-oenw-Zn 500 1 tab PO DAILY 12/20/20 mg tablet ibuprofen 600 mg tablet 600 mg PO TID PRN pain #90 tabs 04/19/21 Current Visit Medications: Current Medications Generic Name Dose Route Start Last Admin Trade Name Saudq PRN Reason Stop Dose Admin Hyoscyamine Sulfate 0.125 mg 01/02/22 06:07 Hyoscyamine 0.125 Mg Sl/Oral/Chew SL DIRECTED PRN Ringer's Solution 1,000 mls @ 80 mls/hr 01/02/22 06:00 01/02/22 08:29 IV 01/31/22 23:59 80 mls/hr INFUSION SWATHI Administration IV Miscellaneous Supplies 1 each 01/02/22 06:00 Iv Access IV 01/31/22 23:59 DIRECTED SWATHI Ondansetron HCl 4 mg 01/02/22 06:07 Ondansetron 4 Mg/2 Ml Vial IVP Q4H PRN PRN Nausea / Vomiting Sodium Chloride 0 ml 01/02/22 06:00 Normal Saline Flush 10 Ml Syr IV 01/31/22 23:59 PRN PRN Sodium Chloride 0 ml 01/02/22 06:00 Normal Saline 10 Ml Vial IJ 01/31/22 23:59 DIRECTED PRN Sterile Water 0 ml 01/02/22 06:00 Water,Injection,Sterile 10 Ml Vial IJ 01/31/22 23:59 DIRECTED PRN PFSH Active Problems Active Problems: Problem Status Onset Code Idiopathic peripheral neuropathy 06/25/13 G60.9 Loose body of right elbow M24.021 Screening for colon cancer Z12.11 Bilateral hearing loss H91.93 Erectile dysfunction N52.9 Situational anxiety F41.8 Hypertension I10 Smoker F17.200 Peripheral neuropathy G62.9 Alcohol abuse F10.10 Anger Prediabetes R73.03 Hypertriglyceridemia E78.1 Varicose veins of both lower extremities I83.93 Multiple adenomatous polyps D36.9 Pedunculated colonic polyp K63.5 De Quervain'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 Bilateral hand numbness R20.0 Acute dehydration E86.0 Headache R51.9 Carpal tunnel syndrome on both sides G56.03 Cubital tunnel syndrome, bilateral G56.23 Trigger finger, left little finger M65.352 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 Hx of elbow surgery b/l tennis elbow and removal bone on R. Hx of shoulder surgery L shoulder impingement, labral tear, cyst removal Tobacco Smoking/Tobacco Use Status: Current every day Tobacco Type: cigarettes Smoking cigarettes per day: 20 Alcohol Alcohol Intake: current Alcohol intake frequency: a few times a week Alcohol type: other Substance Use Substance use: Occasionally Substance use type: marijuana Details: Marijuana smoked for pain/neuropathy.HE Vital Signs and Lab Results Vital Signs Most Recent Vital Signs in EMR: Most Recent Vital Signs Temp Pulse Resp BP Pulse Ox 36.5 C 58 L 18 146/83 H 97 01/02/22 08:12 01/02/22 08:12 01/02/22 08:12 01/02/22 08:12 01/02/22 08:12 Lab Results Blood Type / Crossmatch: No Data to Display Complete Blood Count: No Data to Display Complete Metabolic Panel: No Data to Display Liver Function Panel: No Data to Display Coagulation Panel: No Data to Display Cardiac Panel: No Data to Display Arterial Blood Gas: No Data to Display Venous Blood Gas: No Data to Display Pancreas Panel: No Data to Display Thyroid Panel: No Data to Display Infectious Disease: No Data to Display Blood Cultures: No Data to Display Toxicology Panel: No Data to Display Imaging and Studies Imaging and Studies Study information below may be from another EMR and interpreted by another provider. Please see original notes in EMR for more complete details. Pulmonary Function Summary: DATE OF SERVICE: March 16, 2015 Spirometry shows mild obstructive airway disease with significant bronchodilator response. Lung volumes show no evidence of restriction. Diffusion capacity normal. Airway resistance normal. IMPRESSION: Mild obstructive airway disease with significant bronchodilator response. Clinical correlation recommended. Anesthesia Assessment and Plan Anesthesia History Personal History: No History of Anesthesia Complications Family History: No Family History of Anesthesia Complications Exercise Tolerance Exercise Tolerance: Metabolic Equivalents>4 Pertinent Negatives Pertinent Negatives: No Symptoms of GERD, No Major Cardiovascular Symptoms or Complaints and No Major Pulmonary Symptoms or Complaints Cardiac & Pulmonary Exam Cardiac Exam: Normal S1/S2 Heart Sounds Pulmonary Exam: Clear Bilateral Breath Sounds Implantable Cardiac Device Does patient have a Pacemaker or an ICD?: No Airway Exam Known Difficult Airway: No Mallampati Class: 3 Mouth Opening: Normal (> 3cm) Thyromental Distance: Less than 3 cm Neck Range of Motion: Full ROM Neck Circumference: Normal Teeth Condition: Normal Dentition ASA Classification ASA Score: ASA 2 Emergency Case?: No NPO Status NPO Status: NPO Clears >2 hours, Solids >8 hours Anesthesia Plan Resuscitation Status: Full Code Anesthesia Technique: General Anesthesia Airway Planned: Natural Airway Monitors Used: Standard Monitors
[2022-01-02 09:22] VITALS: BMI 35.8
--- NOTE | 2022-01-02 09:45 | BOWEL_PTH ---
PATIENT: Porsha Park LOC: [facility] U#:[id number] AGE/SX: 51/M ROOM: RE01/02/[address]: Matt Collins MD : 1970 BED: DIS: 01/02/2022 SPEC #: [id number] RECD: 01/02/22 12:24 STATUS: DOUG REJake #: [id number] AMARILYS: 01/02/22 09:[address]: Matt Collins DEPT: Surgical Specimen RECD BY: Emani Sigala ENTERED: 01/02/22 12:28 SP TYPE: Bowel OTHR DR: Mirian Malcolm Tissues: 1 - BIOPSY BOWEL 2 - BIOPSY BOWEL 3 - BIOPSY BOWEL 4 - BIOPSY BOWEL 5 - BIOPSY BOWEL Procedures: GROSS AND MICRO LEVEL 4 Comments: [id number]
[2022-01-02 10:14] VITALS: BP 118/87; PULSE 63; RESP 18; TEMP 36.1; O2SAT 92
--- NOTE | 2022-01-02 12:10 | W.ANESPOSTOP ---
Postoperative Evaluation Date, Time and Location Date Performed: 01/02/22 Time Performed: 11:14 Patient Location: Day Surgery Unit Vital Signs Most Recent Imported Vital Signs: Most Recent Vital Signs Temp Pulse Resp BP Pulse Ox 36.1 C L 63 18 118/87 92 01/02/22 10:14 01/02/22 10:14 01/02/22 10:14 01/02/22 10:14 01/02/22 10:14 Pain Score Most Recent Pain Score: Most Recent Pain Score Pain Level 0 01/02/22 10:14 Assessment Mental Status: Awake (Alert & Oriented to Patient Baseline) Airway and Respiratory Function: Patent airway with normal (patient baseline) respiratory exam Cardiovascular Function: Hemodynamically Stable Hydration Status: Adequately Hydrated Nausea & Vomiting: No Nausea or Vomiting Pain: Pt. Denies Any Pain Peripheral Nerve Block: Patient did not receive a nerve block
== END 2022-01-02 11:05 | disposition home or self-care (01) ==
PROVIDERS: PCP Family Medicine; Visit Provider Surgery
PROC: 0DJD8ZZ Inspection of Lower Intestinal Tract, Via Natural or Artificial Opening Endoscopic (ICD-10-PCS; CPT 45378; principal; 2022-01-02 09:15)
DX: Z09 Encounter for follow-up examination after completed treatment for conditions other than malignant neoplasm (principal); K63.5 Polyp of colon; Z86.010 Personal history of colon polyps
CPT/HCPCS: 45385; 45380; 88305; 94640; J2704

== ENCOUNTER 2022-03-01 07:26 | Emergency (ER) | payer BC, SELFPAY ==
[2022-03-01 07:32] VITALS: BP 153/106; PULSE 77; RESP 18; TEMP 36.8; O2SAT 96
--- NOTE | 2022-03-01 08:15 | DI.RAD_ITS ---
Exam(s) XR PORTABLE CHEST AP EXAM: XR PORTABLE CHEST AP CLINICAL HISTORY: cough sob. TECHNIQUE: 2D digital imaging was performed. COMPARISON: CR LEFT RIBS TO INCLUDE CXR from 11/13/2014 CR XR CHEST 1V IN DI DEPT from 12/20/2020 FINDINGS: Single AP portable view. Heart size is upper normal. The mediastinum is not widened. Right lung is clear. Scarring in the mid left lung field is unchanged from 12/20/2020. Mild bluntin g of left costophrenic angle is also unchanged. No new pleural effusions. IMPRESSION: No acute pulmonary findings on this single AP portable view of the chest. Left lung scarring is unchanged from 12/21/2019 DATA REPOSITORY: RADIATION DOSE DELIVERED:
--- NOTE | 2022-03-01 08:40 | ED.GENADUL_ITS ---
Discharge Plan Disposition Patient Disposition: Home Condition: Stable Discharge Details Clinical Impression: Upper respiratory infection Primary Care Provider: Mirian Malcolm ED Provider: Myrna Monique Home Meds and New Rx's Prescriptions: New prednisone 20 mg tablet 40 mg PO ONCE Qty: 10 0RF albuterol sulfate 90 mcg/actuation aerosol powdr breath activated 2 inh inhalation Q6H PRNQty: 1 0RF Continued ascorbic acid (vitamin C) 500 MG tablet 500 mg PO DAILY lisinopril 20 MG tablet 20 mg PO DAILY Qty: 90 vardenafil [Levitra] 20 mg tablet 20 mg PO DAILY gabapentin 300 MG capsule 900 mg PO DAILY glucosam-vit O-dpqsig-jctx-Zn 500 mg Tablet 1 tab PO DAILY ibuprofen 600 mg tablet 600 mg PO TID PRN (Reason: pain) Qty: 90 0RF multivitamin Tablet 1 tab PO DAILY atorvastatin 10 mg Tablet 10 mg PO DAILY atenolol 100 mg Tablet 100 mg PO DAILY citalopram [Celexa] 20 mg Tablet 20 mg PO DAILY Discharge Instructions Instructions: Upper Respiratory Infection (ED) Additional Instructions: Take prednisone as needed, this will likely help both your ears and cough Use albuterol, 2 puffs every 4-6 hours as needed for cough, wheeze, shortness of breath Follow-up with your primary care physician Keep yourself well-hydrated with fluids, this will help clear the mucus with mucus and continue with the Mucinex Stand Alone Forms: Work Release Referrals: Mirian Malcolm [Primary Care Provider] - Discharge Data Discharge Date/Time-TO BE ENTERED AT DEPARTURE: 03/01/22 08:53 Medical Decision Making This 52-year-old gentleman presents with cough and upper respiratory congestion, secondary to 2 weeks of symptoms, I did order a chest x-ray which does not show evidence of pneumonia per radiology interpretation my review Patient is not hypoxic and clinically is well in appearance Secondary to persistence of symptoms and likelihood of this being bronchitis, I did order albuterol inhaler and prednisone I see no clear indication for antibiotics at this time, he is afebrile and otherwise nontoxic Instructed to follow-up with primary care physician if patient sees no improvement within the next week or so Return precautions reviewed and patient expressed understanding Medical Records Medical records reviewed: Yes I reviewed the patient's medical records. HPI General Date/Time Provider Initiated Documentation: 03/01/22 08:06 . HPI Narrative: This 52-year-old male presents with sore throat that started on Saturday. He states that she has upper respiratory congestion and productive cough. he been taking Mucinex at home. Denies chest pain or shortness of breath. Has had crusting to his eyes looks improved today reportedly. Denies any fever or chills. Denies known sick contacts. Denies history of asthma or COPD. Related Data Home Medications Medication Instructions Recorded Confirmed ascorbic acid (vitamin C) 500 mg 500 mg PO DAILY 06/19/12 03/01/22 tablet lisinopril 20 mg tablet 20 mg PO DAILY #90 tab-caps 06/19/12 03/01/22 gabapentin 300 mg capsule 900 mg PO DAILY 11/13/14 03/01/22 atenolol 100 mg tablet 100 mg PO DAILY 08/13/18 03/01/22 atorvastatin 10 mg tablet 10 mg PO DAILY 08/13/18 03/01/22 citalopram 20 mg tablet (Celexa) 20 mg PO DAILY 08/13/18 03/01/22 multivitamin 1 tab PO DAILY 08/13/18 03/01/22 vardenafil 20 mg tablet (Levitra) 20 mg PO DAILY 06/10/20 03/01/22 glucosam-vit X-vhtcij-pzpl-Zn 500 1 tab PO DAILY 12/20/20 03/01/22 mg tablet ibuprofen 600 mg tablet 600 mg PO TID PRN pain #90 tabs 04/19/21 03/01/22 albuterol sulfate 90 mcg/actuation 2 inh inhalation Q6H PRN #1 ea 03/01/22 breath activated powder inhaler prednisone 20 mg tablet 40 mg PO ONCE #10 tabs 03/01/22 Previous Rx's Medication Instructions Recorded ibuprofen 600 mg tablet 600 mg PO TID PRN pain #90 tabs 04/19/21 albuterol sulfate 90 mcg/actuation 2 inh inhalation Q6H PRN #1 ea 03/01/22 breath activated powder inhaler prednisone 20 mg tablet 40 mg PO ONCE #10 tabs 03/01/22 Allergies Allergy/AdvReac Type Severity Reaction Status Date / Time No Known Allergies Allergy Verified 03/01/22 07:39 General Stated Complaint: RespSymp HANH: 4 Review of Systems All systems reviewed & are unremarkable except as noted in HPI and below PFSH All Active Problems (Updated 03/01/22 @ 08:44 by RAFAEL Redd) Upper respiratory infection (Acute) Tubular adenoma (Acute ~01/02/22) Colon polyp (Acute) Rectal polyp (Acute) Idiopathic peripheral neuropathy (Acute 06/25/13) Screening for colon cancer (Acute) Bilateral hearing loss (Acute) Erectile dysfunction (Acute) Situational anxiety (Acute) Hypertension (Chronic) Smoker (Acute) Peripheral neuropathy (Acute) Alcohol abuse (Chronic) Anger (Acute) Prediabetes (Acute) Hypertriglyceridemia (Acute) Varicose veins of both lower extremities (Acute) Multiple adenomatous polyps (Acute) Pedunculated colonic polyp (Acute) De Quervain's disease (radial styloid tenosynovitis) (Acute) Bilateral hand numbness (Acute) Acute dehydration (Acute) Headache (Acute) Carpal tunnel syndrome on both sides (Acute) S/P R ECTR: 04/19/2021 S/P L ECTR: 06/13/2021 Cubital tunnel syndrome, bilateral (Acute) S/P Release R: 04/19/2021 S/P Release L: 06/13/2021 Trigger finger, left little finger (Acute) S/P Release: 06/13/2021 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 Hx of elbow surgery b/l tennis elbow and removal bone on R. Hx of shoulder surgery L shoulder impingement, labral tear, cyst removal Social History Smoking/Tobacco Use Status: Current every day Tobacco Type: cigarettes Smoking risk assessment performed?: Yes Alcohol Intake: current Alcohol Intake frequency: a few times a week Alcohol type: other Drug use: Occasionally Substance use type: marijuana Details: Marijuana smoked for pain/neuropathy.HE Do you feel safe at home: Yes Do you feel safe in your relationship?: Yes Exam Const General: cooperative, comfortable and no acute distress Orientation: alert and oriented x3 HENMT Head: normal to inspection Mouth: oral mucosae normal Eyes Sclera: sclerae normal Resp Effort & Inspection: normal respiratory effort Auscultation: clear to auscultation bilaterally Cardio Rate: regular rate Rhythm: regular rhythm GI Inspection: normal to inspection Skin General skin exam: no rashes or lesions noted Neuro General: patient alert and patient oriented x3 Extrem Other: No calf sign or tenderness appreciated Course Vital Signs Vital signs: Vital Signs Temperature 36.8 C 03/01/22 07:32 Pulse 77 03/01/22 07:32 Respiratory Rate 18 03/01/22 07:32 Blood Pressure 153/106 H 03/01/22 07:32 Pulse Oximetry 96 03/01/22 07:32 Temperature 36.8 C 03/01/22 07:32 Temperature Source Temporal Artery Scan 03/01/22 07:32 Pulse 77 03/01/22 07:32 Respiratory Rate 18 03/01/22 07:32 Respiratory Effort Non-Labored 03/01/22 07:45 Respiratory Depth Normal 03/01/22 07:45 Blood Pressure 153/106 H 03/01/22 07:32 Blood Pressure Position Sitting 03/01/22 07:32 Pulse Oximetry 96 03/01/22 07:32 Oxygen Delivery Method Room Air 03/01/22 07:32 Oxygen Flow Rate 0 03/01/22 07:32 Pain Level 7 03/01/22 07:32 PAWSS Have you Been Recently Intoxicated or Drunk Within the Last 30 days?: No Have you Ever Experienced Previous Episodes of Alcohol Withdrawal?: No Have you ever Experienced Withdrawal Seizures?: No Have you ever Experienced Delirium Tremens(DT)s?: No Have you ever undergone Alcohol Rehabilitation Treatment (i.e, inpt ot outpatient treatment programs)?: No Have you ever Experienced Blackouts?: No Have you ever Combined Alcohol with other Downers within the last 90 days?: No Have you ever Combined Alcohol with any other Substance of Abuse during the last 90 days?: No Positive Blood Alcohol level on Presentation? [PCS.BAL]: No Evidence of Increased Autonomic Activity (i.e. HR>120, tremor, sweating, agitation, nausea)?: No Result: 0
[2022-03-01 08:53] VITALS: BP 153/106; PULSE 77; RESP 18; TEMP 36.8; O2SAT 96
[2022-03-03 11:50] LABS: COVID-19 RT-PCR UVMMC Result Negative (Negative)
== END 2022-03-01 08:53 | disposition home or self-care (01) ==
PROVIDERS: Emergency Provider Physician Assistant; PCP Family Medicine
DX: J06.9 Acute upper respiratory infection, unspecified (principal); Z20.822 Contact with and (suspected) exposure to COVID-19
CPT/HCPCS: 99283; U0003; 71045; 99284

== ENCOUNTER 2022-03-05 10:31 | Emergency (ER) | payer BC, SELFPAY ==
[2022-03-05 10:38] VITALS: BP 169/104; PULSE 72; RESP 20; TEMP 36.8; O2SAT 95
--- NOTE | 2022-03-05 11:24 | ED.GENADUL_ITS ---
Discharge Plan Disposition Patient Disposition: Home Condition: Good Discharge Details Clinical Impression: URI (upper respiratory infection), Bronchitis, Sinusitis Primary Care Provider: Mirian Malcolm ED Provider: Saba Mccartney Home Meds and New Rx's Prescriptions: Continued ascorbic acid (vitamin C) 500 MG tablet 500 mg PO DAILY lisinopril 20 MG tablet 20 mg PO DAILY Qty: 90 vardenafil [Levitra] 20 mg tablet 20 mg PO DAILY gabapentin 300 MG capsule 900 mg PO DAILY glucosam-vit V-hlusir-poqe-Zn 500 mg Tablet 1 tab PO DAILY ibuprofen 600 mg tablet 600 mg PO TID PRN (Reason: pain) Qty: 90 0RF multivitamin Tablet 1 tab PO DAILY atorvastatin 10 mg Tablet 10 mg PO DAILY atenolol 100 mg Tablet 100 mg PO DAILY citalopram [Celexa] 20 mg Tablet 20 mg PO DAILY albuterol sulfate 90 mcg/actuation aerosol powdr breath activated 2 inh inhalation Q6H PRNQty: 1 0RF No Action prednisone 20 mg tablet 40 mg PO DAILY 5 Days Qty: 10 0RF Discharge Instructions Instructions: Sinusitis (ED), Acute Bronchitis (ED) Additional Instructions: I am concerned that you are developing a bacterial infection in the setting of having had a recent viral illness. Supportively here new onset of fevers, increased sputum, increased cough, sinus drainage. Please take the antibiotics as prescribed. Even if symptoms improve, please take entire course. Please continue to encourage hydration. Honey for sore throat. Tylenol and/or ibuprofen as needed for discomfort. You were noted to have some wheezing on exam, the albuterol inhaler may help with this as well as the cough. Please continue with this as previously prescribed. May continue with the Mucinex and supportive care. If you develop difficulty breathing, shortness of breath or other new/worsening symptoms seek care urgently once again. Please follow-up with primary care in 1 to 2 weeks for reevaluation. Stand Alone Forms: Work Release Referrals: Mirian Malcolm [Primary Care Provider] - Discharge Data Discharge Date/Time-TO BE ENTERED AT DEPARTURE: 03/05/22 12:32 Medical Decision Making Patient is a pleasant 52-year-old gentleman with past medical history significant for hypertension, active smoker, alcohol abuse, prediabetes, hypertriglyceridemia, presenting today with chief complaint of increased cough, fever/chills, sore throat and congestion. He was seen here last week and was started on prednisone for presumed bronchitis. He was thought to have had a viral illness at that time. He states that initially he began to feel significantly improved but then the symptoms seem to come back and were worse. He denies any chest pain or shortness of breath. Has not been using the albuterol inhaler much. On exam, patient appears nontoxic. Hemodynamically stable. He does have some wheezing noted on auscultation his lungs. Otherwise, clear. Does not appear to be in any respiratory distress. HEENT exam is significant for erythematous posterior oropharynx, cobblestoning. With his increased symptoms, return of fever, I am concerned that he is developing bacterial infection in the setting of recent viral illness. With the increase in post nasal drip, congestion, I am concerned that he may be developping sinusitis. He has more of the inhaler at home, has found htis works during times of wheezing. He will continue with this . encouraged hydration. Encouraged smoking cessation. Will begin on abx, Augmentin. Encouraged close f/u with PCP. Return precautions disussed. All of his quesitons and concerns were addressed, he is in agreement with this plan. HPI General Date/Time Provider Initiated Documentation: 03/05/22 11:24 . Limitations to Documentation: no limitations . Information obtained by: patient, RN notes reviewed and old records reviewed . History of Present Illness 52 year old M presents to the emergency department with the chief complaint of post nasal drip, cough, sinus congestion, fevers, described as moderate, Quality is described as aching, and is localized to the face and mouth. Patient started experiencing this day(s) and it has been constant. No exacerbating factors reported . Patient notes cough, fever/chills and malaise; denies chest pain, headaches, loss of appetite, nausea/vomiting, rash and shortness of breath. Patient did receive the following treatments prior to arrival, other (steroids) Related Data Home Medications Medication Instructions Recorded Confirmed ascorbic acid (vitamin C) 500 mg 500 mg PO DAILY 06/19/12 03/14/22 tablet lisinopril 20 mg tablet 20 mg PO DAILY #90 tab-caps 06/19/12 03/14/22 gabapentin 300 mg capsule 900 mg PO DAILY 11/13/14 03/14/22 atenolol 100 mg tablet 100 mg PO DAILY 08/13/18 03/14/22 atorvastatin 10 mg tablet 10 mg PO DAILY 08/13/18 03/14/22 citalopram 20 mg tablet (Celexa) 20 mg PO DAILY 08/13/18 03/14/22 multivitamin 1 tab PO DAILY 08/13/18 03/14/22 vardenafil 20 mg tablet (Levitra) 20 mg PO DAILY 06/10/20 03/14/22 glucosam-vit T-iylnwc-karm-Zn 500 1 tab PO DAILY 12/20/20 03/14/22 mg tablet ibuprofen 600 mg tablet 600 mg PO TID PRN pain #90 tabs 04/19/21 03/14/22 albuterol sulfate 90 mcg/actuation 2 inh inhalation Q6H PRN #1 ea 03/01/22 03/14/22 breath activated powder inhaler prednisone 20 mg tablet 40 mg PO DAILY 5 days #10 tabs 03/14/22 Previous Rx's Medication Instructions Recorded ibuprofen 600 mg tablet 600 mg PO TID PRN pain #90 tabs 04/19/21 albuterol sulfate 90 mcg/actuation 2 inh inhalation Q6H PRN #1 cristel 03/01/22 breath activated powder inhaler prednisone 20 mg tablet 40 mg PO DAILY 5 days #10 tabs 03/14/22 Allergies Allergy/AdvReac Type Severity Reaction Status Date / Time amoxicillin [From Augmentin] Allergy Intermediate rash Verified 03/14/22 12:17 clavulanic acid Allergy Intermediate rash Verified 03/14/22 12:17 [From Augmentin] General Stated Complaint: GenMedical HANH: 4 Review of Systems Constitutional Constitutional: Reports as per HPI and Denies headache(s) Eyes Eyes: Reports as per HPI, Denies eye discharge and Denies irritation ENT Ears, Nose, Mouth, and Throat: Reports as per HPI and Denies headache(s) Cardiovascular Cardiovascular: Reports as per HPI, Denies chest pain and Denies dyspnea Respiratory Respiratory: Reports as per HPI and Denies dyspnea Gastrointestinal Gastrointestinal: Reports as per HPI, Denies abdominal pain, Denies change in bowel habits, Denies nausea and Denies vomiting Integumentary/Breasts Skin/Breast: Reports as per HPI and Denies rash Neurologic Neurologic: Reports as per HPI and Denies headache(s) PFSH All Active Problems (Updated 03/14/22 @ 12:22 by Holley Novoa NP) Upper respiratory infection (Acute) URI (upper respiratory infection) (Acute) Bronchitis (Acute) Sinusitis (Acute) Allergic reaction due to antibacterial drug (Acute) Rash (Acute) Tubular adenoma (Acute ~01/02/22) Colon polyp (Acute) Rectal polyp (Acute) Idiopathic peripheral neuropathy (Acute 06/25/13) Screening for colon cancer (Acute) Bilateral hearing loss (Acute) Erectile dysfunction (Acute) Situational anxiety (Acute) Hypertension (Chronic) Smoker (Acute) Peripheral neuropathy (Acute) Alcohol abuse (Chronic) Anger (Acute) Prediabetes (Acute) Hypertriglyceridemia (Acute) Varicose veins of both lower extremities (Acute) Multiple adenomatous polyps (Acute) Pedunculated colonic polyp (Acute) De Quervain's disease (radial styloid tenosynovitis) (Acute) Bilateral hand numbness (Acute) Acute dehydration (Acute) Headache (Acute) Carpal tunnel syndrome on both sides (Acute) S/P R ECTR: 04/19/2021 S/P L ECTR: 06/13/2021 Cubital tunnel syndrome, bilateral (Acute) S/P Release R: 04/19/2021 S/P Release L: 06/13/2021 Trigger finger, left little finger (Acute) S/P Release: 06/13/2021 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 Hx of elbow surgery b/l tennis elbow and removal bone on R. Hx of shoulder surgery L shoulder impingement, labral tear, cyst removal Social History Smoking/Tobacco Use Status: Current every day Tobacco Type: cigarettes Smoking risk assessment performed?: Yes Alcohol Intake: current Alcohol Intake frequency: a few times a week Alcohol type: other Drug use: Occasionally Substance use type: marijuana Details: Marijuana smoked for pain/neuropathy.HE Do you feel safe at home: Yes Do you feel safe in your relationship?: Yes Exam Const General: cooperative, healthy appearing, comfortable, no acute distress, well developed and well groomed Nutritional Appearance: well nourished and overweight Orientation: alert and awake [facility] Head: normal to inspection, normocephalic and atraumatic Ears: hearing grossly normal bilaterally, external ears normal and TM's normal bilaterally General nose exam: external nose normal and nares normal Face and sinus: normal facial exam, sinuses nontender and face symmetric Mouth: oral mucosae normal, lip normal, tongue normal, oropharynx normal and moist mucous membranes Teeth and gingiva: dentition normal Throat: posterior oropharynx abnormal (erythematous, cobblestoning), tonsils normal and uvula midline Eyes General: appearance normal, both eyes and all related structures Neck Neck: normal visual inspection, full ROM, no lymphadenopathy and no meningeal signs Resp Effort & Inspection: normal respiratory effort, able to speak in complete sentences and no respiratory distress Auscultation: no rales, no rhonchi and wheezes expiratory wheezes (faint, scattered) Cardio Rate: regular rate Rhythm: regular rhythm Heart Sounds: S1 normal and S2 normal Skin General skin exam: no rashes or lesions noted Neuro General: patient alert and patient awake Cognition: normal cognition Speech: speech normal Gait: normal gait Psych Appearance: grossly normal and well kempt Mental Status: mental status grossly normal Speech and Movement: speech and movement normal Course Vital Signs Vital signs: Vital Signs Temperature 36.8 C 03/05/22 10:38 Pulse 72 03/05/22 10:38 Respiratory Rate 03/05/22 10:38 Blood Pressure 169/104 H 03/05/22 10:38 Pulse Oximetry 95 03/05/22 10:38 Temperature 36.8 C 03/05/22 10:38 Temperature Source Tympanic 03/05/22 10:38 Pulse 72 03/05/22 10:38 Respiratory Rate 03/05/22 10:38 Blood Pressure 169/104 H 03/05/22 10:38 Blood Pressure Position Sitting 03/05/22 10:38 Pulse Oximetry 95 03/05/22 10:38
== END 2022-03-05 12:32 | disposition home or self-care (01) ==
PROVIDERS: Emergency Provider Physician Assistant; PCP Family Medicine
DX: J06.9 Acute upper respiratory infection, unspecified (principal); J20.9 Acute bronchitis, unspecified; J01.80 Other acute sinusitis
CPT/HCPCS: 99283; 99284

== ENCOUNTER 2022-03-14 10:23 | Emergency (ER) | payer BC, SELFPAY ==
[2022-03-14 10:30] VITALS: BP 142/88; PULSE 77; RESP 16; TEMP 37; O2SAT 97
[2022-03-14] MEDS: diphenhydrAMINE 25 MG CAP PO (11:20)
[2022-03-14] MEDS: predniSONE 20 MG TAB 40 MG PO (11:20)
--- NOTE | 2022-03-14 12:12 | ED.GENADUL_ITS ---
Discharge Plan Disposition Patient Disposition: Home Condition: Stable Discharge Details Clinical Impression: Allergic reaction due to antibacterial drug, Rash Primary Care Provider: Mirian Malcolm ED Provider: Holley Novoa Home Meds and New Rx's Prescriptions: New prednisone 20 mg tablet 40 mg PO DAILY 5 Days Qty: 10 0RF Continued ascorbic acid (vitamin C) 500 MG tablet 500 mg PO DAILY lisinopril 20 MG tablet 20 mg PO DAILY Qty: 90 ibuprofen 600 mg tablet 600 mg PO TID PRN (Reason: pain) Qty: 90 0RF atorvastatin 10 mg Tablet 10 mg PO DAILY atenolol 100 mg Tablet 100 mg PO DAILY citalopram [Celexa] 20 mg Tablet 20 mg PO DAILY albuterol sulfate 90 mcg/actuation aerosol powdr breath activated 2 inh inhalation Q6H PRNQty: 1 0RF Discontinued amoxicillin-pot clavulanate [Augmentin] 500-125 mg tablet 1 tab PO BID Qty: 14 0RF No Action vardenafil [Levitra] 20 mg tablet 20 mg PO DAILY gabapentin 300 MG capsule 900 mg PO DAILY glucosam-vit I-otwzln-ftad-Zn 500 mg Tablet 1 tab PO DAILY multivitamin Tablet 1 tab PO DAILY Discharge Instructions Instructions: Acute Rash (ED), General Allergic Reaction (ED) Additional Instructions: Use the triamcinolone cream up to 2-3 times daily as needed no longer than 7 days. Take Zyrtec [id number] during the day as needed for itching and rash. At night you may take 1 or 2 tablets of Benadryl if rash and itching persists. Please stop the Augmentin. Do not use the hot tub until your rash has cleared up. Follow up with primary care provider in 3-5 days. Return to ED sooner if any worsening rash, fever, trouble swallowing, trouble breathing or cough or concerns. Increase oral fluids. Stand Alone Forms: Work Release Referrals: Mirian Malcolm [Primary Care Provider] - 1 week Discharge Data Discharge Date/Time-TO BE ENTERED AT DEPARTURE: 03/14/22 12:42 Medical Decision Making 52-year-old male presents to the ER with a chief complaint of full body pruritic red raised clustered rash with excoriations which began approximately 6 days ago after taking Augmentin for approximately 6 days. He reports agitation and itching. Started on his lower legs. He also reports that he has been sitting for long periods of time in his hot tub which has exacerbated the symptoms. He has not taken any Benadryl or antihistamines at home. He is not complaining of any respiratory symptoms, no throat swelling no cough no runny nose. He is on the tail end of recent diagnosis of bronchitis and sinusitis and URI. He reports that his respiratory symptoms are improved. As medical history includes hyperlipidemia, headache, prediabetes, alcohol abuse, daily smoker hypertension anxiety. Patient given Benadryl and here. Triamcinolone cream ordered and will give to patient here. I did discuss home care and to take Zyrtec during the day hours and Benadryl at night for itching and rash. I did instruct him to stay out of the hot tub until this rash is gone and to apply the triamcinolone cream up to 3 times daily no longer than 7 days as directed. Discussed tricked return instructions to return for any problems breathing or sore throat or throat swelling he verbalized understanding. Due to no systemic symptoms such as fever no induration or signs of infection no tachycardia at this time I do not feel it is warranted to do labs or further testing. Instructed to stop the amoxicillin that was added to his allergy list. Patient remained hemodynamically stable alert and oriented speaking in full sentences to the remainder of his stay. Patient was discharged home with strict return instructions and follow-up care. This text was generated using [email or web address] dictation system, please disregard any oddities of phrase or misspellings. Differential Diagnosis Differential Diagnosis: Other rash not related to drug allergy HPI General Mode of arrival: ambulatory . Date/Time Provider Initiated Documentation: 03/14/22 10:25 . Limitations to Documentation: no limitations . Information obtained by: patient, RN notes reviewed and old records reviewed . HPI Narrative: 52-year-old male presents to the ER with a chief complaint of full body pruritic red raised clustered rash with excoriations which began approximately 6 days ago after taking Augmentin for approximately 6 days. He reports agitation and itching. Started on his lower legs. He also reports that he has been sitting for long periods of time in his hot tub which has exacerbated the symptoms. He has not taken any Benadryl or antihistamines at home. He is not complaining of any respiratory symptoms, no throat swelling no cough no runny nose. He is on the tail end of recent diagnosis of bronchitis and sinusitis and URI. He rep orts that his respiratory symptoms are improved. As medical history includes hyperlipidemia, headache, prediabetes, alcohol abuse, daily smoker hypertension anxiety. Related Data Home Medications Medication Instructions Recorded Confirmed ascorbic acid (vitamin C) 500 mg 500 mg PO DAILY 06/19/12 03/14/22 tablet lisinopril 20 mg tablet 20 mg PO DAILY #90 tab-caps 06/19/12 03/14/22 gabapentin 300 mg capsule 900 mg PO DAILY 11/13/14 03/14/22 atenolol 100 mg tablet 100 mg PO DAILY 08/13/18 03/14/22 atorvastatin 10 mg tablet 10 mg PO DAILY 08/13/18 03/14/22 citalopram 20 mg tablet (Celexa) 20 mg PO DAILY 08/13/18 03/14/22 multivitamin 1 tab PO DAILY 08/13/18 03/14/22 vardenafil 20 mg tablet (Levitra) 20 mg PO DAILY 06/10/20 03/14/22 glucosam-vit P-qmdrqd-qssy-Zn 500 1 tab PO DAILY 12/20/20 03/14/22 mg tablet ibuprofen 600 mg tablet 600 mg PO TID PRN pain #90 tabs 04/19/21 03/14/22 albuterol sulfate 90 mcg/actuation 2 inh inhalation Q6H PRN #1 ea 03/01/22 03/14/22 breath activated powder inhaler prednisone 20 mg tablet 40 mg PO DAILY 5 days #10 tabs 03/14/22 Previous Rx's Medication Instructions Recorded ibuprofen 600 mg tablet 600 mg PO TID PRN pain #90 tabs 04/19/21 albuterol sulfate 90 mcg/actuation 2 inh inhalation Q6H PRN #1 ea 03/01/22 breath activated powder inhaler prednisone 20 mg tablet 40 mg PO DAILY 5 days #10 tabs 03/14/22 Allergies Allergy/AdvReac Type Severity Reaction Status Date / Time amoxicillin [From Augmentin] Allergy Intermediate rash Verified 03/14/22 12:17 clavulanic acid Allergy Intermediate rash Verified 03/14/22 12:17 [From Augmentin] General Stated Complaint: RashLesion HANH: 3 Review of Systems All systems reviewed & are unremarkable except as noted in HPI and below Integumentary/Breasts Skin/Breast: Reports rash PFSH All Active Problems (Updated 03/14/22 @ 12:22 by Holley Novoa NP) Upper respiratory infection (Acute) URI (upper respiratory infection) (Acute) Bronchitis (Acute) Sinusitis (Acute) Allergic reaction due to antibacterial drug (Acute) Rash (Acute) Tubular adenoma (Acute ~01/02/22) Colon polyp (Acute) Rectal polyp (Acute) Idiopathic peripheral neuropathy (Acute 06/25/13) Screening for colon cancer (Acute) Bilateral hearing loss (Acute) Erectile dysfunction (Acute) Situational anxiety (Acute) Hypertension (Chronic) Smoker (Acute) Peripheral neuropathy (Acute) Alcohol abuse (Chronic) Anger (Acute) Prediabetes (Acute) Hypertriglyceridemia (Acute) Varicose veins of both lower extremities (Acute) Multiple adenomatous polyps (Acute) Pedunculated colonic polyp (Acute) De Quervain's disease (radial styloid tenosynovitis) (Acute) Bilateral hand numbness (Acute) Acute dehydration (Acute) Headache (Acute) Carpal tunnel syndrome on both sides (Acute) S/P R ECTR: 04/19/2021 S/P L ECTR: 06/13/2021 Cubital tunnel syndrome, bilateral (Acute) S/P Release R: 04/19/2021 S/P Release L: 06/13/2021 Trigger finger, left little finger (Acute) S/P Release: 06/13/2021 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 Hx of elbow surgery b/l tennis elbow and removal bone on R. Hx of shoulder surgery L shoulder impingement, labral tear, cyst removal Social History Smoking/Tobacco Use Status: Current every day Tobacco Type: cigarettes Smoking risk assessment performed?: Yes Alcohol Intake: current Alcohol Intake frequency: a few times a week Alcohol type: other Drug use: Occasionally Substance use type: marijuana Details: Marijuana smoked for pain/neuropathy.HE Do you feel safe at home: Yes Do you feel safe in your relationship?: Yes Exam Const General: cooperative, well developed, well groomed, in distress (Due to itching and agitation) mild and anxious Nutritional Appearance: average body habitus and well nourished Orientation: alert, awake and oriented x3 Resp Effort & Inspection: normal respiratory effort, able to speak in complete sentences, no cough, no grunting, not labored, no pursed lip breathing, no respiratory distress, no stridor and not tachypneic Auscultation: clear to auscultation bilaterally and no wheezes Skin General skin exam: excoriation Rashes: rashes noted maculopapular rash diffuse full body arrangement grouped, borders raised and irregular, color red and morphology annular and round; not burrowing; fluctuant not assessed Wounds: no wounds Nails: normal Course Vital Signs Vital signs: Vital Signs Temperature 37.0 C 03/14/22 10:30 Pulse 77 03/14/22 10:30 Respiratory Rate 16 03/14/22 10:30 Blood Pressure 142/88 H 03/14/22 10:30 Pulse Oximetry 97 03/14/22 10:30 Temperature 37.0 C 03/14/22 10:30 Pulse 77 03/14/22 10:30 Respiratory Rate 16 03/14/22 10:30 Respiratory Effort 03/14/22 10:33 Blood Pressure 142/88 H 03/14/22 10:30 Blood Pressure Position Sitting 03/14/22 10:30 Pulse Oximetry 97 03/14/22 10:30 Oxygen Delivery Method Room Air 03/14/22 10:30 Oxygen Flow Rate 0 03/14/22 10:30 Pain Level 0 03/14/22 10:30 PAWSS Have you Been Recently Intoxicated or Drunk Within the Last 30 days?: No Have you Ever Experienced Previous Episodes of Alcohol Withdrawal?: No Have you ever Experienced Withdrawal Seizures?: No Have you ever Experienced Delirium Tremens(DT)s?: No Have you ever undergone Alcohol Rehabilitation Treatment (i.e, inpt ot outpatient treatment programs)?: No Have you ever Experienced Blackouts?: No Have you ever Combined Alcohol with other Downers within the last 90 days?: No Have you ever Combined Alcohol with any other Substance of Abuse during the last 90 days?: No Result: 0
[2022-03-14] MEDS: Triamcinolone 0.1% CR 80 GM TUBE TP (12:41)
--- NOTE | 2022-03-17 17:49 | NUR.NOTE ---
Nursing Note: Patient called stating his wanted him to call for more lotion. While on the phone the patient told his that he already picked up the lotion. He stated he was all set.
== END 2022-03-14 12:42 | disposition home or self-care (01) ==
PROVIDERS: Emergency Provider Registered Nurse Emergency; PCP Family Medicine
DX: L27.0 Generalized skin eruption due to drugs and medicaments taken internally (principal); T36.1X5A Adverse effect of cephalosporins and other beta-lactam antibiotics, initial encounter
CPT/HCPCS: 99283; 99284; J7512

== ENCOUNTER 2022-09-14 16:04 | Outpatient (REF) | payer BC, SELFPAY ==
--- OUTSIDE RECORDS SUMMARY | 2022-09-14 16:06 | XMS_ITS | Continuity of Care Document ---
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) - 12/29/20 Discharge Disposition: Home Attending Physician: Snow Esparza Admitting Physician: Snow Esparza Referring Physician: Stanley Pearce Allergies, Adverse Reactions, Alerts No Known Medication Allergies Medications atenolol 100 mg, Oral, Daily, 0 Refill(s) Start Date: 12/16/20 Status: Ordered atorvastatin 10 mg, Oral, Daily, 0 Refill(s) Start Date: 12/16/20 Status: Ordered citalopram 20 mg, Oral, Daily, 0 Refill(s) Start Date: 12/16/20 Status: Ordered cyanocobalamin 1,000 mcg, 0 Refill(s) Start Date: 12/16/20 Status: Ordered gabapentin 300 mg, Oral, TID, usually takes bid, 0 Refill(s) Start Date: 12/16/20 Status: Ordered Multi Vitamin+ 0 Refill(s) Start Date: 12/16/20 Status: Ordered Hardeep Move Free Oral, Daily, 0 Refill(s) Start Date: 12/29/20 Status: Ordered vardenafil 20 mg, Oral, Daily, 0 Refill(s) Start Date: 12/16/20 Status: Ordered Vitamin C 500 mg, Daily, 0 Refill(s) Start Date: 12/16/20 Status: Ordered Problem List Condition Effective Dates Status Health Status Inform ant Multiple adenomatous polyps(Confirmed) Active Cervical radiculopathy(Confirmed) Active Neuropathy(Confirmed) Active Pedunculated colonic polyp(Confirmed) Active Left shoulder pain(Confirmed) Active Spondylolysis of lumbosacral region(Confirmed) Active 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
--- OUTSIDE RECORDS SUMMARY | 2022-09-14 16:06 | XMS_ITS | Continuity of Care Document ---
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 DESCRIPTION OF TESTING Electrodiagnostic testing that your physician has prescribed consists of obtaining a directed history of health and medical problems, a neurological examination, a Nerve Conduction Study (NCS), and Electromyography (EMG). All of these components are referred as ???Electrodiagnostic Testing?? . Nerve Conduction Studies Nerves conduct electrical signals generated in certain areas of the brain. These signals are carried through nerves to muscles. Upon receiving these signals, or stimuli, muscles contract and perform movements. If muscles do not respond to such stimuli correctly, it is possible that corresponding nerves are not functioning properly. A Nerve Conduction Study is performed to establish whether nervescarry (or conduct) stimuli normally. In order to perform a Nerve Conduction Study, surface electrodes are taped over several zones on the skin and muscles. The nerves which supply those zones or muscles are then stimulated with a surface probe and the resulting electrical responses are recorded by the surface electrodes, which are in turn attached to an EMG machine. The electrical responses provide detailed information about nerve function. These stimuli feel like a small shock (as a pinch or tingling) and are almost always well tolerated. One or more nerves may be tested during this procedure. Electromyography If muscles do not respond correctly to stimuli produced in the brain and conducted to these musclesby corresponding nerves, it is possible that the muscle does not process these stimuli normally, even though the nerves are intact. To establish whether this is true, electromyography is performed. During this test, a very small disposable needle electrode (smaller than the needle employed during ablood draw) is placed in one or more muscles. The electrical activity of the muscle is fed back through the electrode to the EMG machine when the muscle is at rest and then when it is voluntarily activated by the patient. The information obtained from EMG provides insight into muscle function. Test Results At the end of the study, the results of the neurologic examination, the NCS and EMG are combined todiagnose problems with nerves and muscles and connections between them (neuro-muscular junctions), as well as areas in the brain that control these nerves and muscles. II. POSSIBLE BENEFITS OF ELECTRODIAGNOSTIC TESTING Electrodiagnostic medicine is the study of diseases of nerves and muscles. Your doctor has recommended an EMG test to see if your muscles and nerves are working right. The results of the tests will help localize the problem and establish its severity. Benefits of electrodiagnostic testing may be decreased by factors that interfere with the testing and affect its accuracy. These factors include presence of excess fatty tissue between the muscle andskin, application to the skin of medicinal and/or cosmetic lotions or creams, patient???s ability to cooperate with the physician during testing, or patient???s failure to follow physician???s instructions, as well as patient???s age (nerve conduction can vary with age and normally decreases as a person grows older). III. POSSIBLE RISKS OF ELECTRODIAGNOSTIC TESTING Electrodiagnostic testing involves insertion of disposable needle electrodes into skin and muscles and electrical stimulation of muscles (EMG). As such, they may cause discomfort and pain during the test. Since every patient tolerates discomfort and pain differently, it is impossible to predict howdiscomforting and/or painful this test will be for you. Most patients describe the discomfort as mild. Minimal bleeding may occur during or after the test at the site of insertion of needle electrodes. Therefore, it is very important for you to disclose to your physician whether or not you have a bleeding problem, or whether or not you have been taking blood-thinning medication, such as Coumadin or Heparin. Electrodiagnostic Testing may interfere with the electrical devices implanted in the body. Therefore, it is very important for you to disclose to your physician if you have such a device implanted inyour body (for example, a pacemaker in the heart, defibrillator, cochlear implant, or spinal cord simulator). Even though sterile, disposable electrodes are used for Electrodiagnostic Testing, the site of insertion of needle electrodes may become infected, although the risk is minimal. This risk elevates, however, if normal hygiene is not maintained after the completion of the test. After the test, the muscle (or several muscles) may feel tender and bruised for a few days. Overall, Electrodiagnostic Testing is safe and electric stimulation is too weak and short to cause an injury or permanent damage. IV. ALTERNATIVES TO ELECTRODIAGNOSTIC TESTING Electrodiagnostic tests such as Nerve Conduction Studies and/or Electromyography collect and analyze very specific information about the proper function of my nervous system and my muscles. No other test can record and analyze electrical activity of nerves and muscles these nerves innervate and, therefore, there is no substitute, or alternative test, that can provide my physician with the information needed. V. RISKS OF NOT UNDERGOING ELECTRODIAGNOSTIC TESTING Risks of not undergoing Electrodiagnostic Testing include delay in proper diagnosis, delay in localization of possible problems affecting nerves and muscles, delay in assessment of severity of such problems, and delay in treatment and/or rehabilitation that might have been recommended had [facility] gnostic Testing been performed. . POST-PROCEDURE INSTRUCTIONS ??? You may experience some minor bruising, swelling, or inflammation where the needle electrode was inserted into your muscles. This is temporary and should resolve within 1-2 days. ??? There is a slight risk of bleeding or infection at the electrode sites. Please call your doctorif you notice any of the following: Bleeding Increase in discomfort Signs of infection such as redness, warmth, swelling, pain, drainage, or fever >101 degrees F ??? The results of the EMG/NCS will be sent to the provider that recommended you get the test. If you have questions or concerns, call the [facility], Saturday- Saturday, 8:00-4:30. [phone]. If you go to the emergency room, please take this information sheet with you.
[2022-09-14 21:02] LABS: HCT 49.5 % (40.0-50.0); HGB 16.8 g/dL (13.5-17.5); MCH 32.1 pg (27.0-33.0); MCHC 33.9 % (32.0-36.0); MCV 95 fL (80-95); MPV 11.9 fL (8.0-11.0); Platelet Count 283 10^3/uL (130-400); RBC 5.24 10^6/uL (4.36-5.78); RDW 11.9 % (11.8-14.1); RDW-SD 41.1 fL; WBC 10.45 10^3/uL (4.4-10.8)
[2022-09-14 21:31] LABS: Hemoglobin A1C 7.1 % (<5.7)
[2022-09-14 22:04] LABS: ALT 26 U/L (16-63); AST 21 U/L (15-37); Alkaline Phosphatase 110 U/L (46-116); Anion Gap 9.2 mmol/L (3-11); BUN 10 mg/dL (7-18); Bilirubin, Total 0.8 mg/dL (0.2-1.0); CO2 28.8 mmol/L (21.0-32.0); CREATININE 0.9 mg/dL (0.70-1.30); Calcium 9.3 mg/dL (8.5-10.1); Chloride 101 mmol/L (98-107); Estimated GFR 102.12 (mL/min/1.73m2); Glucose 123 mg/dL (74-106); Sodium 139 mmol/L (136-145); Total Protein 7.3 g/dL (6.4-8.2); Vitamin B12 603 pg/mL (193-986)
[2022-09-14 22:28] LABS: NT-proBNP 849 pg/mL (<300)
== END 2022-09-14 16:05 | disposition home or self-care (01) ==
LOC: NCHCN 16:04
PROVIDERS: PCP Family Medicine; Visit Provider Family Medicine
DX: E11.9 Type 2 diabetes mellitus without complications (principal); R60.9 Edema, unspecified; F10.10 Alcohol abuse, uncomplicated
CPT/HCPCS: 80053; 85027; 82607; 83036; 83880

== ENCOUNTER 2022-09-17 16:23 | Outpatient (REF) | payer BC, SELFPAY ==
[2022-09-17 21:18] LABS: HCT 47.5 % (40.0-50.0); MCH 31.4 pg (27.0-33.0); MCHC 33.7 % (32.0-36.0); MCV 93 fL (80-95); MPV 11.4 fL (8.0-11.0); Platelet Count 286 10^3/uL (130-400); RDW 11.9 % (11.8-14.1); RDW-SD 41.5 fL; WBC 12.19 10^3/uL (4.4-10.8)
[2022-09-17 21:38] LABS: ALT 26 U/L (16-63); AST 15 U/L (15-37); Albumin 3.9 g/dL (3.4-5.0); Alkaline Phosphatase 111 U/L (46-116); Anion Gap 9.2 mmol/L (3-11); BUN 10 mg/dL (7-18); Bilirubin, Total 0.6 mg/dL (0.2-1.0); CO2 28.8 mmol/L (21.0-32.0); CREATININE 0.9 mg/dL (0.70-1.30); Calcium 9.2 mg/dL (8.5-10.1); Chloride 101 mmol/L (98-107); Estimated GFR 102.12 (mL/min/1.73m2); Glucose 126 mg/dL (74-106); NT-proBNP 742 pg/mL (<300); Potassium 3.9 mmol/L (3.5-5.1); Sodium 139 mmol/L (136-145); Total Protein 7.2 g/dL (6.4-8.2)
== END 2022-09-17 16:24 | disposition home or self-care (01) ==
LOC: NCHCN 16:23
PROVIDERS: PCP Family Medicine; Visit Provider Family Medicine
DX: E11.9 Type 2 diabetes mellitus without complications (principal); I10 Essential (primary) hypertension; R45.4 Irritability and anger; R60.9 Edema, unspecified
CPT/HCPCS: 80053; 85027; 83036; 83880

== ENCOUNTER → 2022-10-31 02:50 | Outpatient (CLI) | payer BC, SELFPAY ==
--- NOTE | 2022-10-31 15:38 | DI.US_ITS ---
APPROVED REPORT EXAM: Comprehensive 2D, Doppler, and color-flow Echocardiogram Patient Location: Out-Patient [facility] [employer] Worker: Arjun Knox RDCS (AE) Indications: edema, alcohol abuse Other Information Technically limited study due to body habitus. Conclusion Normal left ventricular wall thickness and chamber size. Ejection fraction is 60 to 65%. Wall motio n is normal Normal right ventricular size and systolic function Both atria are normal in size There is no structural or hemodynamically significant valvular disease Only dilated ascending aorta is 3.56 cm Wall motion Left Ventricle The left ventricle is normal size. The left ventricular systolic function is normal. The left ventric ular ejection fraction is within the normal range. Mild concentric left ventricular hypertrophy. Ther e is normal LV segmental wall motion. There is no ventricular septal defect visualized. LVEF is 60-65 %. Right Ventricle The right ventricle is normal size. The right ventricular systolic function is normal. Unable to asse ss PA pressure. Atria The left atrium size is normal. The right atrium size is normal. The interatrial septum is intact wit h no evidence for an atrial septal defect. Aortic Valve Aortic valve is grossly normal in structure. There is no aortic valvular stenosis. No aortic regurgit ation is present. Mitral Valve The mitral valve is normal in structure. No evidence of mitral valve stenosis. Trace mitral regurgita tion. Tricuspid Valve The tricuspid valve is normal in structure. There is no tricuspid valve stenosis. Trace tricuspid reg urgitation. Pulmonic Valve The pulmonary valve is normal in structure. There is no pulmonic valvular stenosis. There is no pulmo kristen valvular regurgitation. Great Vessels The aortic root is normal in size. The ascending aorta is mildly dilated. Aortic arch is normal in ca liber. IVC is normal in size and collapses >50% with inspiration. Pericardium There is no pericardial effusion. 2D Dimensions IVSD d PLAX 1.13 cm M: 0.6-1.2 Ao Root d 3.11 cm M: 3.1 - 3.7 LVPW d PLAX 1.21 cm M: 0.6 - 1.2 Ao Asc Diam d 3.56 cm M: 2.6 - 3.4 LVID d PLAX 4.73 cm M: 4.2 - 5.8 LVDs 3.17 cm M: 2.5 - 4.0 LV EF Teichholz 61.3 % FS 32.84 % LV EDV (Teich) 103.8 mL LV ESV (Teich) 40.2 mL Stroke Vol Index (Teich) 27.05 M-Mode TAPSE 3.26 cm (M/F) >1.7 Auto EF LV EDV A4C 182.8 mL LV EDV A2C 183.1 mL LV EDV BP 179.8 mL LV ESV A4C 72.8 mL LV ESV A2C 63.1 mL LV ESV BP 66.6 mL LVEF(%) A4C 60.2 % LVEF(%) A2C 65.5 % LVEF(%) BP 63.0 % LV SV A4C 110.0 ml LV SV A2C 120.0 ml LV SV BP 113.2 ml LV CO A4C 6.0 L/min LV CO A2C 6.5 L/min LV CO BP 6.3 L/min HR A4C 54.96 BPM HR A2C 53.80 BPM LV EDV Index (BP) LA Volume LA Length A4C 4.3 cm LA Length A2C LA Area A4C s 12.88 cm2 LA Area A2C s LA Vol A4C A-L 32.51 mL LA Vol A2C A-L LA Vol Biplane A-L LA Vol A4C MOD 29.0 mL LA Vol A2C MOD LA Vol BP MOD RA Volume RA Area A4C 11.3 cm2 RA ESV A4C (A-L) 24.7mL RA Vol/BSA A4C A-L RA Length A4C 4.4 cm RA ESV A4C (MOD) 25.2mL LV Diastology MV E' medial 0.094 (>0.07 m/s) MV E Vmax 0.94 (0.4-1.3 m/s) MV E/E' MED 10.00 (<14) MV A Vmax 0.95 (0.4-1.3 m/s) MV E' lateral 0.099 (>0.1 m/s) E/A Ratio 1.0 MV E/E' LAT 9.46 (<14) MV E' Average 0.097 m/s MV E/E'(average) 9.72 Aortic Valve AoV Vmax 1.17 m/s LVOT Vmax 1.09 m/s AoV Peak Grad 5.4 mmHg LVOT Peak Grad 4.8 mmHg AoV Area (Vmax) 3.04 cm2 LVOT VTI 0.262 m AoV VTI 0.271 m LVOT Mean Grad 2.9 mmHg AoV Mean Raúl. 0.81 m/s LVOT SV 85.10 mL AoV Mean Grad 3.0 mmHg LVOT Diam s 2.00 cm AoV Area (VTI) 3.14 cm2 Velocity Ratio 0.93 Mitral Valve MV DT 196 (160-240 msec) Pulmonary Valve PV Vmax 1.05 (0.5-1.5 m/s) RVOT Vmax 0.68 m/s PV Peak Grad 4.4 mmHg RVOT Peak Gr. 1.8 mmHg PV Mean Raúl 0.78 m/s RVOT VTI 0.171 m PV Mean Grad 2.7 mmHg RVOT Mean Gr. 1.1 mmHg
== END ==
PROVIDERS: PCP Family Medicine; Visit Provider Family Medicine
DX: R60.9 Edema, unspecified (principal)
CPT/HCPCS: 93306

== ENCOUNTER 2023-03-12 18:27 | Outpatient (REF) | payer BC, SELFPAY ==
[2023-03-12 21:47] LABS: TSH (W/Ref FT4) 2.56 uIU/mL (0.36-3.74)
== END 2023-03-12 18:28 | disposition home or self-care (01) ==
LOC: NCHCN 18:27
PROVIDERS: PCP Family Medicine; Visit Provider Family Medicine
DX: E11.40 Type 2 diabetes mellitus with diabetic neuropathy, unspecified (principal)
CPT/HCPCS: 84443

== ENCOUNTER 2023-05-02 04:11 | Outpatient (CLI) | payer BC, SELFPAY ==
--- NOTE | 2023-05-06 09:39 | W.NUTRFU ---
Date of service: 05/02/23 Time of Service: 13:00 Nutrition Note NOTE: Nichole comes in today with his , Bart (states she is pre-diabetic) for diabetes education and guidance with menu planning. Nichole was diagnosed with diabetes in June of 2016 and had his last A1c bump up from 7 to 7.4 per referral note. He has peripheral neuropathy - states he cannot feel his foot (comes in wearing croc sandles). 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 Takes gabapentin for neuropathy. Metformin 500mg BID. cuurently smokes 1/2 ppd, smokes marijuana, and drinks etoh -white claws mainly. Takes a MVI and additional vitamin C periodically. We reviewed carb counting and his goal to stay in a range of 10-14 carb choices per day. We reviewed handouts that demonstrated 15gram serving sizes. Bart and Nichole demonstrated understanding of the basics of carb counting and supplementing meals and snacks with other non-carb items high in protein and fiber to help with satiety. The bigger discussion came surrounding Nichole's habits. He knows he should be limiting himself but has developed some negarive habits over the years, as far as skipping meals and top-loading his evening with extremely large portions such plate full of pasta with 5 melted cheese slices on top. Nichole admits to having the type of constitution that it he wants something, he's going to have it and no one will tell him any different. Encouraged nichole to focus on low-hanging fruit with regards to which habits he feels changing would make the biggest improvement to his health. Encouraged working on motivation to consider his alcohol and smoking as these pose huge risks with his diabetes at his current level of use. We discussed trying to at least track his intake of carbs to see where a typical day compares with recommendation of 10-14 choices per day. We reviewed importance of getting protein and carbs split up throughout the day and trying to get back into a rhythm of eating regular meals so his hunger is so concentrated into one part of the day. Gave them my card to contact with any questions or needs such as menu reviewing. Time Spent in Nutritional Counseling and Treatment: 30 minutes
== END 2023-05-02 04:12 | disposition home or self-care (01) ==
LOC: DS 04:11
PROVIDERS: PCP Family Medicine; Visit Provider Dietitian, Registered
DX: E11.9 Type 2 diabetes mellitus without complications (principal); Z79.84 Long term (current) use of oral hypoglycemic drugs; Z71.3 Dietary counseling and surveillance
CPT/HCPCS: 00123; 97802

== ENCOUNTER → 2023-07-05 16:08 | Outpatient (CLI) | payer BC, SELFPAY ==
--- NOTE | 2023-07-05 | DI.US_ITS ---
Exam(s) US LOWER EXTREMITY VENOUS RT EXAM: US LOWER EXTREMITY VENOUS RT CLINICAL HISTORY: M79.661 Pain in rt lower leg,Pain rt calf. TECHNIQUE: Lower extremity venous ultrasound performed using grayscale, color-flow, and spectral Do ppler analysis. COMPARISON: No exams were available for comparison FINDINGS: The common femoral, femoral and popliteal veins demonstrate normal compressibility, augmentation, and color Doppler. The posterior tibial veins are patent. No saphenous vein thrombosis or other superfi cial venous thrombosis is seen. No hematoma or Da Silva's cyst is seen. IMPRESSION: Negative lower extremity ultrasound. No evidence of DVT. DATA REPOSITORY:
--- NOTE | 2023-07-05 | DI.RAD_ITS ---
Exam(s) XR FOOT RT COMPLETE EXAM: XR FOOT RT COMPLETE CLINICAL HISTORY: M79.671 Pain in rt foot. TECHNIQUE: 2D digital imaging was performed. Three views. COMPARISON: None FINDINGS: BONES: Disorganization and fragmentation of bones in the midfoot, particularly the talus. Findings m ay indicate Charcot foot. Due to the irregularity, fractures and osteomyelitis would be difficult to exclude reticular without comparison exams. Small heel spurs. JOINTS: No dislocation present. SOFT TISSUE: Marked swelling. No foreign body or abnormal gas collection. IMPRESSION: Bony fragmentation and disorganization of the midfoot consistent with Charcot foot. Comparison with priors would be helpful. DATA REPOSITORY: RADIATION DOSE DELIVERED:
--- NOTE | 2023-07-05 17:07 | DI.VRAD_ITS ---
PROCEDURE INFORMATION: Exam: XR Right Foot Exam date and time: 07/05/2023 4:34 PM Age: 53 years old Clinical indication: Other: Pain in RT foot TECHNIQUE: Imaging protocol: Radiologic exam of the right foot. Views: 3 or more views. Weightbearing AP, oblique and lateral images. COMPARISON: US LOWER EXTREMITY VENOUS RT 07/05/2023 4:09 PM FINDINGS: Bones/joints: Fragmentation of the navicular bone with extruded fragments superiorly. The articulation with the cuneiforms is also irregular. The tarsometatarsal joint spaces are preserved in oriented appropriately. The lateral image shows probable fragmentation of the inferior distal portion of the talus. The calcaneus is intact as is the subtalar joint. The phalanges and metatarsals are also within normal limits. Soft tissues: Moderate to severe generalized soft tissue swelling. IMPRESSION: Charcot changes of the navicular bone that is fragmented. Poorly seen are probable similar changes of the distal inferior talus. Dictated and Authenticated by: Ashwin Harrell MD. Ordering:KRYSTAL King MD
--- NOTE | 2023-07-05 17:08 | DI.VRAD_ITS ---
PROCEDURE INFORMATION: Exam: US Duplex Right Lower Extremity Veins, Limited Exam date and time: 07/05/2023 4:09 PM Age: 53 years old Clinical indication: Swelling (edema) of limb; Lower extremity, right TECHNIQUE: Imaging protocol: Real-time duplex ultrasound of the right extremity with 2-D metcalf scale, color Doppler flow and spectral waveform analysis including responses to compression and other maneuvers (when performed) with image documentation. Limited exam was focused on the right lower extremity veins. COMPARISON: CT CHEST/ABD/PEL W 08/13/2018 1:04 AM FINDINGS: Right deep veins: Unremarkable. The common femoral, femoral, proximal profunda femoral and popliteal veins are patent without thrombus. Normal Doppler waveforms. Normal compressibility and/or augmentation response. Superficial veins: Greater saphenous vein at the saphenofemoral junction is patent without thrombus. Soft tissues: Unremarkable. IMPRESSION: No evidence of deep vein thrombosis. Dictated and Authenticated by: Ashwin Harrell MD. Ordering:KRYSTAL King MD
== END ==
PROVIDERS: PCP Family Medicine; Visit Provider Physician Assistant Medical
DX: M14.671 Charcot's joint, right ankle and foot (principal)
CPT/HCPCS: 73630; 93971

== ENCOUNTER 2023-07-05 16:32 | Outpatient (CLI) | payer BC, SELFPAY ==
[2023-07-05 16:34] LABS: Abs Immature Grans 0.03 10^3/uL (0.0-0.06); Absolute Basophil Count 0.06 10^3/uL (0.0-0.2); Absolute Eosinophil Count 0.21 10^3/uL (0.0-0.7); Absolute Lymphocyte Count 2.72 10^3/uL (1.2-3.4); Absolute Monocyte Count 0.81 10^3/uL (0.1-0.8); Absolute Neutrophil Count 6.27 10^3/uL (1.2-6.7); Basophils % 0.6 %; Eosinophils % 2.1 %; HCT 47.2 % (40.0-50.0); Immature Grans % 0.3 %; Lymphocytes % 26.9 %; MCH 32.7 pg (27.0-33.0); MCHC 33.9 % (32.0-36.0); MCV 97 fL (80-95); Neutrophils % 62.1 %; Platelet Count 280 10^3/uL (130-400); RBC 4.89 10^6/uL (4.36-5.78); RDW-SD 42.8 fL
[2023-07-05 16:46] LABS: ALT 23 U/L (16-63); AST 11 U/L (15-37); Albumin 3.7 g/dL (3.4-5.0); Alkaline Phosphatase 117 U/L (46-116); Anion Gap 7.3 mmol/L (3-11); BUN 14 mg/dL (7-18); Bilirubin, Total 0.7 mg/dL (0.2-1.0); CO2 30.7 mmol/L (21.0-32.0); CREATININE 0.9 mg/dL (0.70-1.30); Calcium 8.9 mg/dL (8.5-10.1); Chloride 101 mmol/L (98-107); Estimated GFR 101.49 (mL/min/1.73m2); Glucose 196 mg/dL (74-106); Potassium 3.9 mmol/L (3.5-5.1); Sodium 139 mmol/L (136-145); Total Protein 7.2 g/dL (6.4-8.2)
== END 2023-07-05 16:33 | disposition home or self-care (01) ==
LOC: LBO 16:33
PROVIDERS: PCP Family Medicine; Visit Provider Physician Assistant Medical
DX: M79.661 Pain in right lower leg (principal)
CPT/HCPCS: 36415; 80053; 85025

== ENCOUNTER → 2023-07-12 12:43 | Outpatient (CLI) | payer BC, SELFPAY ==
--- NOTE | 2023-07-12 08:45 | DI.RAD_ITS ---
Exam(s) XR FOOT LT COMPLETE EXAM: XR FOOT LT COMPLETE CLINICAL HISTORY: Pain in lt foot, M79.672, Possible Charcot. TECHNIQUE: 2D digital imaging was performed of the left foot. Three images were obtained. AP, obli que and lateral views were obtained. COMPARISON: No exams were available for comparison FINDINGS: BONES: No acute fracture is present. No bony destructive lesion is seen. There is an enthesophyte at the posterior calcaneus. There is a small plantar calcaneal spur. JOINTS: No dislocation present. There is a 1.6 cm lucency in the base of the 3rd metatarsal bone. Th ere is a spur at the dorsal aspect of the proximal navicular. There is mild deformity of the articul ation between the navicular and the cuneiform is best appreciated on the lateral view. Alignment of the tarsal bones is otherwise stable and within normal limits. No fragmentation of the bones is note d. SOFT TISSUE: Normal. IMPRESSION: No fragmentation is seen of the tarsal bones. There is mild deformity of the articulation between th e navicular and the cuneiform is a but otherwise the joints are well maintained. There is a nonspeci fic lucency in the base of the 3rd metatarsal bone. No periosteal reaction or cortical disruption is seen. A CT scan of the foot may be considered for further evaluation. DATA REPOSITORY: RADIATION DOSE DELIVERED:
== END ==
PROVIDERS: PCP Family Medicine; Visit Provider Podiatrist
DX: M79.672 Pain in left foot
CPT/HCPCS: 73630

== ENCOUNTER → 2023-08-01 04:48 | Outpatient (CLI) | payer BC, SELFPAY ==
--- NOTE | 2023-08-01 08:15 | DI.RAD_ITS ---
Exam(s) XR FOOT RT COMPLETE EXAM: XR FOOT RT COMPLETE CLINICAL HISTORY: charcot right foot, arthropathy, M14.60 charcot joint. TECHNIQUE: 2D digital imaging was performed. COMPARISON: CR,XR XR FOOT RT COMPLETE from 07/05/2023 FINDINGS: 3 views Again noted is Charcot-like fragmentation of the navicular bone and distal talus, similar in appearan ce to 07/05/2023 with relative sparing of the cuneiform bones and the cuboid and metatarsal bases. T here is no diastasis of the Lisfranc joint. Overlying soft tissue swelling is again noted. There is no gas in soft tissues. No vascular calcification. Inferior calcaneal spur again noted. IMPRESSION: Midfoot fragmentation, similar appearance to 07/05/2023. DATA REPOSITORY: RADIATION DOSE DELIVERED:
--- NOTE | 2023-08-01 08:15 | DI.RAD_ITS ---
Exam(s) XR FOOT LT COMPLETE EXAM: XR FOOT LT COMPLETE CLINICAL HISTORY: Charcot? lateral foot new lump, pain lt foot, M79.672. TECHNIQUE: 2D digital imaging was performed. COMPARISON: CR XR FOOT LT COMPLETE from 07/12/2023 FINDINGS: 3 views No evidence of acute fracture or diastasis of the Lisfranc joint and no midfoot fragmentation, as is evident in the opposite-right foot. Abnormal lucency/bone lesion in the base of the 3rd metatarsal is again noted measuring approximately 1.3 by 0.9 cm, unchanged. There is also bony excrescence-probable osteo chondroma off the lateral a spect of the 3rd metatarsal just proximal to the midshaft level, also unchanged. No other bony excre scence is noted Inferior calcaneal spur again noted. There is no calcification in the plantar fascia. Small in thes e 0 fight on the posterior calcaneus is again noted. IMPRESSION: As above. Unchanged from 07/12/2023. There is no midfoot fragmentation, as is seen on the opposite side. DATA REPOSITORY: RADIATION DOSE DELIVERED:
== END ==
PROVIDERS: PCP Family Medicine; Visit Provider Podiatrist
DX: M79.671 Pain in right foot (principal); M79.672 Pain in left foot
CPT/HCPCS: 73630

== ENCOUNTER → 2023-08-22 00:40 | Outpatient (CLI) | payer BC, SELFPAY ==
--- OUTSIDE RECORDS SUMMARY | 2023-08-22 00:42 | XMS_ITS | Continuity of Care Document ---
Author Name Unknown Organization [facility] Address [address] [place] [address] Encounter [facility] NBR [id number] Date(s): 08/07/23 - 08/07/23 [facility] [address] [place] [address]- Discharge Disposition: Home
--- NOTE | 2023-08-22 14:28 | DI.RAD_ITS ---
Exam(s) XR FOOT LT COMPLETE EXAM: XR FOOT LT COMPLETE CLINICAL HISTORY: evaluate for worsening,DIABETIC PERIPHERAL ANGIOPATHY,LT FOOT PAIN,M79.672. TECHNIQUE: 2D digital imaging was performed of the left foot. Three images were obtained. AP, obli que and lateral views were obtained. COMPARISON: CR XR FOOT LT COMPLETE from 08/01/2023 FINDINGS: BONES: No acute fracture is present. Stable lucency is seen in the base of the 3rd meta tarsal and th e lateral cuneiform. Small plantar calcaneal spur. Small enthesophyte at the posterior calcaneus. JOINTS: There is stable alignment of the articulation between the navicular and the cuneiform is. SOFT TISSUE: There is diffuse soft tissue swelling of the foot. No radiopaque foreign bodies are pre sent. IMPRESSION: No change in appearance of the left foot compared to the prior examination from 08/01/2023. DATA REPOSITORY: RADIATION DOSE DELIVERED:
--- NOTE | 2023-08-22 14:28 | DI.RAD_ITS ---
Exam(s) XR FOOT RT COMPLETE EXAM: XR FOOT RT COMPLETE CLINICAL HISTORY: evaluate for worsening,RT FOOT PAIN, M69.671,DIABETIC PERIPHERAL NEUROPATHY. TECHNIQUE: 2D digital imaging was performed of the right foot. Four images were obtained. AP, obli que and lateral views were obtained. COMPARISON: CR XR FOOT RT COMPLETE from 08/01/2023 FINDINGS: BONES: No acute fracture is present. Stable fragmentation of the navicular and disorganization of the tarsal bones. There is an enthesophyte at the posterior calcaneus. There is a plantar calcaneal sp ur. There also osseous fragments again seen on the dorsal aspect of the foot overlying the region of the cuneiforms. JOINTS: Stable alignment of the tarsal bones. SOFT TISSUE: Soft tissue swelling of the foot. IMPRESSION: Unchanged appearance of the right foot. Findings are most suggestive of a neuropathic foot. DATA REPOSITORY: RADIATION DOSE DELIVERED:
== END ==
PROVIDERS: PCP Family Medicine; Visit Provider Podiatrist
DX: E11.51 Type 2 diabetes mellitus with diabetic peripheral angiopathy without gangrene (principal); M79.671 Pain in right foot; M79.672 Pain in left foot; M14.60 Charcot's joint, unspecified site
CPT/HCPCS: 73630

== ENCOUNTER → 2023-10-03 01:16 | Outpatient (CLI) | payer BC, SELFPAY ==
--- NOTE | 2023-10-03 | DI.RAD_ITS ---
Exam(s) XR FOOT RT COMPLETE EXAM: XR FOOT RT COMPLETE CLINICAL HISTORY: M79.671,M14.60 Rt foot pain/Charcot's joint pain. TECHNIQUE: 2D digital imaging was performed. COMPARISON: CR XR FOOT RT COMPLETE from 08/22/2023 FINDINGS: 3 views No evidence of acute fracture or diastasis of the Lisfranc joint. However, there is again noted fragmentation of the navicular bone with dorsal displacement of fragmen ts of this bone, similar to previous. Distal aspect of the talus also appears recommended, unchanged . Calcaneus and cuboid appear unchanged and no new obvious abnormalities in the cuneiform bones. IMPRESSION: No radiographic change compared 08/22/2023. Fragmentation the navicular bone is again noted dorsally displaced fragments and there also appears t o be some fragmentation of the distal talus. DATA REPOSITORY: RADIATION DOSE DELIVERED:
--- OUTSIDE RECORDS SUMMARY | 2023-10-03 01:22 | XMS_ITS | Continuity of Care Document ---
Author Organization [facility] Aivo, [facility] Address [address] [place] [address] Assessment No assessment recorded. Plan of Treatment Reminders Order Date Submit Date Provider Last Modified By Organization Details Last Modified Time Details Appointments Office Visit 30 2023 11:00A M MIRIAN LIZAMA Not available Not available Not available Lab CBC w/ auto diff 2023 [facility], [address] [place] [address] [place], [address] 07/05/2023 16:44:03 CMP, serum or plasma [address] [place], [address] 07/05/2023 16:50:06 Referral podiatris t referral - Please be aware that there are some discrepan cies between the local radiologi st read and the V rad read. I question whether or not patient needs MRI or CT for further evaluatio n. I would like you to help better manage this. Please call our office with any questions . 2023 024 [email or web address], [address] [place] [address] [place], [address], 08/14/2023 12:29:25 Procedures None recorded. Surgeries None recorded. Imaging US, duplex, venous, lower extremity , unilatera l [address] [place], [address] 07/05/2023 16:59:40 XR, foot, 3 or more view 2023 024 [facility], [address] [place], [address] 07/05/2023 17:10:29 Medication Orders None recorded. Patient TargetsNo targets recorded. Patient Instructions Encounter Date Encounter Id Patient Instructions Last Modified By Organization Details Last Modified Time 07/05/2023 [id number] 1. Patient was sent from the clinic without discharge instructions because he needed to get quickly over to the hospital for ultrasound prior to them closing. All instructions were given verbally and are as above Not available 07/06/2023 16:27:20 Reason for Referral Gear Tester Referral f or Diabetic peripheral neuropathy per Dr. Hughes's office note: A1c is 7.4% up from 7.0. Still in good range, he discussed try get back with some diet improvements given the slight worsening. Microalbumin is unremarkable. Referral to diet education per his request Referring Physician: [facility], Encounter Date: 03/12/2023 Diabetic Ophthalmology Refer ral for Type 2 diabetes mellitus without complication Referring Physician: [facility], Encounter Date: 03/18/2023 Orthopedic Surgeon Referral for Pain of right ankle joint Referring Physician: Mirian Lizama [facility], Encounter Date: 06/14/2023 Mining Engineering Technologist Referral for Rani cot's arthropathy Please be aware that there are some discrepancies between the local radiologist read and the V rad read. I question whether or not patient needs MRI or CT for further evaluation. I would like you to help better manage this. Please call our office with any questions. Referring Physician: [facility], Encounter Date: 07/05/2023 Orthopedic Foot/ankle Surgeo n Referral for Charcot's arthropathy PANDA Referring Physician: Mirian Lizama [facility], Encounter Date: 07/19/2023 Results Created Date Observation Date Name Description Value Unit Range Abnormal Flag LastModifiedBy Organization Detail LastModifiedTime 07/05/19 24 07/05/2023 US, duple x, venou s, lower extre mity, unila teral No observ ation record ed. Not Available 07/05/2023 17:37:25 07/05/19 24 07/05/2023 US, zak xlucien s, lower extre mity, unila teral Kimberly t Name: Supriya Park Unit #: [id number] Loc: DI Orderi ng Provid er: Christine Harrison Accoun t #: [id number] Status : REG CLI Primar y Care Provid er: Mirian Lizama Date of Exam: Sex: M Admiss ion Date: : 1969 Age: 53 Exam(s ) US LOWER EXTREM ITY VENOUS RT EXAM: US LOWER EXTREM ITY VENOUS RT CLINIC AL HISTOR Y: M79.66 1 Pain in rt lower leg,Pa in rt calf. TECHNI QUE: Lower extrem ity venous ultras ound perfor med using grays[place], color- flow, and spectr al Dopple r analys is. COMPAR MARIA INES: No exams were availa ble for compar maria ines FINDIN GS: The common femora l, femora l and poplit eal veins demons trate normal compre ssibil ity, augmen tation , and color Dopple r. The ceramic designer ior tibial veins are patent . No saphen ous vein thromb osis or other superf icial venous thromb osis is seen. No hemato ma or Da Silva' s cyst is seen. IMPRES AGUS: Negati ve lower extrem ity ultras ound. No eviden ce of DVT. DATA REPOSI TORY: Ordere d By: Christine Harrison CC: ------ ------ ------ ------ ------ ------ ------ ------ ------ ------ ------ ------ - Dictat ed By: Enrrique Billings 1640 1640 Transc ribed By: Lisa Tidwell 1640 This is privil eged, confid ential inform ation intend ed only for the provid er named. Any use or distri bution by any person other than this provid er is strict ly prohib ited. If you receiv e this report in error, please notify us immedpauly min at and return the origin al report to us at the addres s above. Thank- you. [email or web address] [address] [place], [address] 07/06/2023 16:00:54 07/05/19 24 07/05/2023 XR, foot, 3 or more view Patien t Name: Supriya Park Unit #: [id number] Loc: DI Orderi ng Provid er: Christine Harrison Accoun t #: [id number] Status : REG CLI Primar y Care Provid er: Mirian Lizama Date of Exam: Sex: M Admiss ion Date: : 1969 Age: 53 Exam(s ) XR FOOT RT COMPLE TE EXAM: XR FOOT RT COMPLE TE CLINIC AL HISTOR Y: M79.67 1 Pain in rt foot. TECHNI QUE: 2D digita l imagin g was perfor med. Three views. COMPAR MARIA INES: None FINDIN GS: BONES: Disorg anizat ion and fragme ntatio n of bones in the midfoo t, partic ularly the talus. Findin gs may indica te [place] t foot. Due to the irregu larity , fractu res and osteom yeliti s would be diffic ult to exclud e reticu lar withou t compar maria ines exams. Small heel spurs. JOINTS : No disloc ation presen t. SOFT TISSUE : Marked swelli ng. No foreig n body or abnorm al gas collec tion. IMPRES AGUS: Bony fragme ntatio n and disorg anizat ion of the midfoo t consis tent with [place] t foot. Compar maria ines with priors would be helpfu l. DATA REPOSI TORY: RADIAT ION DOSE DELIVE RED: Ordere d By: Christine Harrison CC: ------ ------ ------ ------ ------ ------ ------ ------ ------ ------ ------ ------ - Dictat ed By: Enrrique Billings 1642 Transc ribed By: Lisa Tidwell 1642 This is privil eged, confid ential inform ation intend ed only for the provid er named. Any use or distri bution by any person other than this provid er is strict ly prohib ited. If you receiv e this report in error, please notify us immedi ately at [phone] and return the origin al report to us at the addres s above. Thank- you. [email or web address] [address], [place], [address] 07/06/2023 16:00:48 07/05/19 24 07/05/2023 XR, foot, 3 or more view No observ ation record ed. [facility] [address], [place], [address], 07/05/2023 17:37:26 07/05/19 24 07/05/2023 [facility] ad girard Name: Supriya Park Unit #: [id number] Loc: DI Orderi ng Provid er: Accoun t #: [id number] Status : REG CLI Primar y Care Provid er: Mirian Lizama Date of Exam: Sex: M : 1969 Age: 53 Exam(s ) PROCED URE INFORM ATION: Exam: XR Right Foot Exam date and time: 4:34 PM Age: 53 years old Clinic al indica tion: Other: Pain in RT foot TECHNI QUE: Imagin g protoc ol: Radiol ogic exam of the right foot. Views: 3 or more views. Weight bearin g AP, obliqu e and latera l images . COMPAR MARIA INES: US LOWER EXTREM ITY VENOUS RT 5/10/2 024 4:09 PM FINDIN GS: Bones/ joints : Fragme ntatio n of the navicu lar bone with extrud ed fragme nts superi jewell. The articu lation with the cuneif orms is also irregu lar. The tarsom etatar nathen joint spaces are preser justin in orient ed approp riatel y. The latera l image shows probab le fragme ntatio n of the inferi or distal portio n of the talus. The calcan eus is intact as is the subtal ar joint. The phalan ges and metata rsals are also within normal limits . Soft tissue s: Modera te to severe genera lized soft tissue swelli ng. IMPRES AGUS: [place] t change s of the navicu lar bone that is fragme nted. Poorly seen are probab le simila r change s of the distal inferi or talus. Dictat ed and Authen ticate d by: Abbey Harrell MD. Orderi ng:Josee King MD Access ion#=[id number] Ordere d By: CC: ------ ------ ------ ------ ------ ------ ------ ------ ------ ------ ------ ------ ---- Dictat ed By: Report s vrad 1634 1706 Transc ribed By: Di Merge 1634 This is privil eged, confid ential inform ation intend ed only for the provid er named. Any use or distri bution by any person other than this provid er is strict ly prohib ited. If you receiv e this report in error, please notify us immedi ethanly at and return the origin al report to us at the addres s above. Thank- you. [facility] [address] [place], [address] 07/05/2023 19:15:52 07/05/19 24 07/05/2023 vrad repor t Patien t Name: Supriya Park Unit #: [id number] Loc: DI Orderi ng Provid er: Dedra girard #: [id number] Status : REG CLI Primar y Care Provid er: Mirian Lizama Date of Exam: Sex: M : 1969 Age: 53 Exam(s ) PROCED URE INFORM ATION: Exam: US Duplex Right Lower Extrem ity Veins, Limite d Exam date and time: 024 4:09 PM Age: 53 years old Clinic al indica tion: Swelli ng (edema ) of limb; Lower extrem ity, right TECHNI QUE: Imagin g protoc ol: Real-t devorah duplex ultras ound of the right extrem ity with 2-D metcalf scale, color Dopple r flow and spectr al wavefo rm analys is includ ing respon ses to compre ssion and other maneuv ers (when perfor med) with image docume ntatio n. Limite d exam was focuse d on the right lower extrem ity veins. COMPAR MARIA INES: CT CHEST/ ABD/PE L W 019 1:04 AM FINDIN GS: Right deep veins: Unrema rkable . The common femora l, femora l, proxim al profun da femora l and poplit eal veins are patent withou t thromb us. Normal Dopple r wavefo [place]. Normal compre ssibil ity and/or augmen tation respon se. Superf icial veins: Greate r saphen ous vein at the saphen ofemor al juncti on is patent withou t thromb us. Soft tissue s: Unrema rkable . IMPRES AGUS: No eviden ce of deep vein thromb osis. Dictat ed and Authen ticate d by: Abbey Harrell MD. Orderpauly ng:Josee King MD Access ion#=[id number] Ordere d By: CC: ------ ------ ------ ------ ------ ------ ------ ------ ------ ------ ------ ------ ---- Dictat ed By: Report s vrad 1609 1707 Transc ribed By: Esme Merge 1609 This is privil eged, confid ential inform ation intend ed only for the provid er named. Any use or distri bution by any person other than this provid er is strict ly prohib ited. If you receiv e this report in error, please notify us immedi ately at and return the origin al report to us at the addres s above. Thank- you. [address] , [place], [address] 07/05/2023 19:15:52 07/05/19 24 07/05/2023 US, zak mcdonald, lucien s, [facility] mity, unila teral No observ ation record ed. [address] [place], [address], 07/05/2023 17:37:26 07/12/19 24 07/12/2023 x-ray imagi ng repor t Patipedro t Name: Supriya Park Unit #: [id number] Loc: DI Orderi ng Provid er: Evelyn Byrnes DPM Accoun t #: [id number] Status : REG CLI Primar y Care Provid er: Gold Mirian Date of Exam: Sex: M Admiss ion Date: : 1969 Age: 53 Exam(s ) XR FOOT LT COMPLE TE EXAM: XR FOOT LT COMPLE TE CLINIC AL HISTOR Y: Pain in lt foot, M79.67 2, Possib le [place] t. TECHNI QUE: 2D digita l imagin g was perfor med of the left foot. Three images were obtain ed. AP, obliqu e and latera l views were obtain ed. COMPAR MARIA INES: No exams were availa ble for compar maria ines FINDIN GS: BONES: No acute fractu re is presen t. No bony destru ctive lesion is seen. There is an enthes ophyte at the ceramic designer ior calcan eus. There is a small planta r calcan eal spur. JOINTS : No disloc ation presen t. There is a 1.6 cm lucenc y in the base of the 3rd metata rsal bone. There is a spur at the dorsal aspect of the proxim al navicu lar. There is mild deform ity of the articu lation betwee n the navicu lar and the cuneif orm is best apprec iated on the latera l view. Alignm ent of the tarsal bones is otherw ise stable and within normal limits . No fragme ntatio n of the bones is noted. SOFT TISSUE : Normal . IMPRES AGUS: No fragme ntatio n is seen of the tarsal bones. There is mild deform ity of the articu lation betwee n the navicu lar and the cuneif orm is a but otherw ise the joints are well mainta ined. There is a nonspe cific lucenc y in the base of the 3rd metata rsal bone. No perios teal reacti on or cortic al disrup tion is seen. A CT scan of the foot may be consid ered for furthe r evalua tion. DATA REPOSI TORY: RADIAT ION DOSE DELIVE RED: Ordere d By: Evelyn Byrnes DPM CC: ------ ------ ------ ------ ------ ------ ------ ------ ------ ------ ------ ------ - Dictat ed By: Papo Collins M.D. 1323 1323 Transc ribed By: Papo Collins 1323 This is privil eged, confid ential inform ation intend ed only for the provid er named. Any use or distri bution by any person other than this provid er is strict ly prohib ited. If you receiv e this report in error, please notify us immedi ately at and return the origin al report to us at the addres s above. Thank- you. tere [facility] [address] [place], [address] 07/12/2023 14:55:32 08/01/19 24 08/01/2023 x-ray imagi ng repor t Patipedro t Name: Supriya Park Unit #: [id number] Loc: DI Orderi ng Provid er: Evelyn Byrnes DPM Accoun t #: [id number] Status : REG CLI Primar y Care Provid er: Gold Mirian Date of Exam: Sex: M Admiss ion Date: : 1969 Age: 53 Exam(s ) XR FOOT RT COMPLE TE EXAM: XR FOOT RT COMPLE TE CLINIC AL HISTOR Y: charco t right foot, arthro karin, M14.60 charco t joint. TECHNI QUE: 2D digita l imagin g was perfor med. COMPAR MARIA INES: CR,XR XR FOOT RT COMPLE TE from 2023 FINDIN GS: 3 views Again noted is [place] t-like fragme ntatio n of the navicu lar bone and distal talus, simila r in appear ance to 2023 with relati ve sparin g of the cuneif orm bones and the cuboid and metata rsal bases. There is no diasta sis of the [place] joint. [place] ing soft tissue swelli ng is again noted. There is no gas in soft tissue s. No vascul ar calcif icatio n. Inferi or calcan eal spur again noted. IMPRES AGUS: Mid[place] t fragme ntatio n, simila r appear ance to 2023. DATA REPOSI TORY: RADIAT ION DOSE DELIVE RED: Bill scanlon By: Evelyn Byrnes DPM CC: ------ ------ ------ ------ ------ ------ ------ ------ ------ ------ ------ ------ - Dictat ed By: Lowell Mendes M.D. 1837 Transc ribed By: Vaughn CORTES,Daly elenita 1837 This is privil eged, confid ential inform ation intend ed only for the provid er named. Any use or distri bution by any person other than this provid er is strict ly prohib ited. If you receiv e this report in error, please notify us immedi ately at [phone] and return the origin al report to us at the addres s above. Thank- you. lbisson [facility] [address] [place], [address] 08/02/2023 11:43:53 08/01/19 24 08/01/2023 x-ray imagi ng repor t Kimberly t Name: Supriya Park Unit #: [id number] Loc: DI Orderi ng Provid er: Evelyn Byrnes DPM Accoun t #: [id number] Status : REG CLI Primar y Care Provid er: Mirian Lizama Date of Exam: Sex: M Admiss ion Date: : 1969 Age: 53 Exam(s ) XR FOOT LT COMPLE TE EXAM: XR FOOT LT COMPLE TE CLINIC AL HISTOR Y: [place] t? latera l foot new lump, pain lt foot, M79.67 2. TECHNI QUE: 2D digita l imagin g was perfor med. COMPAR MARIA INES: CR XR FOOT LT COMPLE TE from 2023 FINDIN GS: 3 views No eviden ce of acute fractu re or diasta sis of the [place] joint and no midfoo t fragme ntatio n, as is eviden t in the opposi te-rig ht foot. Abnorm al lucenc y/bone lesion in the base of the 3rd metata rsal is again noted measur ing approx imatel y 1.3 by 0.9 cm, unchan ged. There is also bony excres cence- probab le osteo chondr martinez off the latera l aspect of the 3rd metata rsal just proxim al to the midsha ft level, also unchan ged. No other bony excres cence is noted Inferi or calcan eal spur again noted. There is no calcif icatio n in the planta r fascia . Small in these 0 fight on the ceramic designer ior calcan eus is again noted. IMPRES AGUS: As above. Unchan ged from 2023. There is no midfoo t fragme ntatio n, as is seen on the opposi te side. DATA REPOSI TORY: RADIAT ION DOSE DELIVE RED: Ordere d By: Evelyn Byrnes DPM CC: ------ ------ ------ ------ ------ ------ ------ ------ ------ ------ ------ ------ - Dictat ed By: Lowell Mendes M.D. 1841 Transc ribed By: Vaughn CORTES,Daly elenita 1841 This is privil eged, confid ential inform ation intend ed only for the provid er named. Any use or distri bution by any person other than this provid er is strict ly prohib ited. If you receiv e this report in error, please notify us immedi ately at [phone] and return the origin al report to us at the addres s above. Thank- you. [facility] [address] [place], [address] 08/02/2023 11:43:54 08/22/19 24 08/22/2023 x-ray imagi ng repor t Patien t Name: Supriya Park Unit #: [id number] Loc: DI Orderi ng Provid er: Evelyn Byrnes DPM Accoun t #: [id number] Status : REG CLI Primar y Care Provid er: Mirian Lizama Date of Exam: Sex: M Admiss ion Date: : 1969 Age: 53 Exam(s ) XR FOOT LT COMPLE TE EXAM: XR FOOT LT COMPLE TE CLINIC AL HISTOR Y: evalua te for worsen ing,DI ABETIC PERIPH ERAL ANGIOP Marques COOPER T FOOT PAIN,M 79.672 . TECHNI QUE: 2D digita l imagin g was perfor med of the left foot. Three images were obtain ed. AP, obliqu e and latera l views were obtain ed. COMPAR MARIA INES: CR XR FOOT LT COMPLE TE from 2023 FINDIN GS: BONES: No acute fractu re is presen t. Stable lucenc y is seen in the base of the 3rd meta tarsal and the latera l cuneif orm. Small planta r calcan eal spur. Small enthes ophyte at the ceramic designer ior calcan eus. JOINTS : There is stable alignm ent of the articu lation betwee n the navicu lar and the cuneif orm is. SOFT TISSUE : There is diffus e soft tissue swelli ng of the foot. No radiop aque foreig n bodies are presen t. IMPRES AGUS: No change in appear ance of the left foot compar ed to the prior examin ation from 08/01/19 24. DATA REPOSI TORY: RADIAT ION DOSE DELIVE RED: Ordere d By: Evelyn Byrnes DPM CC: ------ ------ ------ ------ ------ ------ ------ ------ ------ ------ ------ ------ - Dictat ed By: Papo Collins M.D. 1517 1517 Transc ribed By: Papo Collins 1517 This is privil eged, confid ential inform ation intend ed only for the provid er named. Any use or distri bution by any person other than this [facility] er is strict ly prohib ited. If you receiv e this report in error, please notify us immedi ately at and return the origin al report to us at the addres s above. Thank- you. tere [facility] [address] [place], [address] 08/23/2023 07:22:09 08/22/19 24 08/22/2023 x-ray imagi ng repor t Patien t Name: Supriya Park Unit #: [id number] Loc: DI Orderi ng Provid er: Evelyn Byrnes DPM Accoun t #: [id number] Status : REG CLI Primar y Care Provid er: Mirian Lizama Date of Exam: Sex: M Admiss ion Date: : 1969 Age: 53 Exam(s ) XR FOOT RT COMPLE TE EXAM: XR FOOT RT COMPLE TE CLINIC AL HISTOR Y: evalua te for worsen ing,RT FOOT PAIN, M69.67 1,DIAB ETIC PERIPH ERAL NEUROP ATHY. TECHNI QUE: 2D digita l imagin g was perfor med of the right foot. Four images were obtain ed. AP, obliqu e and latera l views were obtain ed. COMPAR MARIA INES: CR XR FOOT RT COMPLE TE from 2023 FINDIN GS: BONES: No acute fractu re is presen t. Stable fragme ntatio n of the navicu lar and disorg anizat ion of the tarsal bones. There is an enthes ophyte at the ceramic designer ior calcan eus. There is a planta r calcan eal spur. There also osseou s fragme nts again seen on the dorsal aspect of the foot overly ing the region of the cuneif orms. JOINTS : Stable alignm ent of the tarsal bones. SOFT TISSUE : Soft tissue swelli ng of the foot. IMPRES AGUS: Unchan ged appear ance of the right foot. Findin gs are most sugges tive of a neurop athic foot. DATA REPOSI TORY: RADIAT ION DOSE DELIVE RED: Ordere d By: Evelyn Byrnes DPM CC: ------ ------ ------ ------ ------ ------ ------ ------ ------ ------ ------ ------ - Dictat ed By: Papo Collins M.D. 1519 1519 Transc ribed By: Papo Collins 1519 This is privil eged, confid ential inform ation intend ed only for the provid er named. Any use or distri bution by any person other than this provid er is strict ly prohib ited. If you receiv e this report in error, please notify us immedi ately at and return the origin al report to us at the addres s above. Thank- you. tere [facility] [address] [place], [address] 08/23/2023 07:22:09 Result Notes None recorded. Problems Name Status Onset Date Resolution Date Notes Provider Name and Address Organization Details Recorded Time Varicose veins of lower [facility] Pure hyperglyceride kiersten [facility] 4 13:15:46 Type 2 diabetes mellitus without complication Active 2016 [facility] 4 13:15:55 Alcohol abuse Active 2016 [facility] 4 13:14:57 Nicotine dependence Active 2016 [facility] 4 13:15:35 Essential hypertension Active 2016 [facility] 4 13:15:30 Anxiety Active 2016 [facility] 4 13:15:01 Counseling Completed 201607/23/2016 07/16/2016 - Comments only - Sara Ann RADIO TELEVISION TECHNICAL DIRECTOR - - F/ u with Dr. Lizama next month for annual physical as planned. F/u sooner for new/worsenin g sx. Problem Code: Z71.89; Problem Code Type: ICD-10; Not Available [facility] 3 05:08[facility]42 [facility] examination [facility] 13:14[facility]52 Erectile dysfunction Active 2016 Lovely anaya, [facility] 4 13:15:26 Bilateral hearing loss [facility] 4 13:15:06 Onychomycosis due to dermatophyte Active 2020 [facility] 4 13:15:40 Malaise Completed 202012/27/2020 12/26/2020 - Comments only - Cinthia HALL - - recovering from viral illness, work note given to return on saturday. recd to get oral rehydrating salts over the counter, discussed bland diet, plenty of rest, fluids and excedrin migraine otc. Return to clinic if not improving or worsening symptoms Problem Code: R53.81; Problem Code Type: ICD-10; Not Available [facility] 3 05:08:43 Carpal tunnel syndrome [facility] 4 13:15:13 Edema [facility] 20[facility] 4 13:15:20 Heart failure Completed 202212/10/2022 Problem Code: I50.9; Problem Code Type: ICD-10; Not Available [facility] 4 05:36:00 Candidiasis of skin Completed 202008/10/2021 Problem Code: B37.2; Problem Code Type: ICD-10; Not Available [facility] 3 05:08:44 Pain in finger Completed 202008/10/2021 Problem Code: M79.646; Problem Code Type: ICD-10; Not Available [facility] 3 05:08:44 Prediabetes Completed 201611/21/2022 06/26/2021 - Comments only - Mirian Lizama MD - Patient is A1c is now in the diabetic range at 6.6. We discussed what goes into a good diabetic diet reducing his alcohol intake and working on some regular exercise to bring his weight down. He would like to try those and then will come in for follow-up. Did suggest him seeing the wellness educator he would like to try these other things first. Problem Code: R73.03; Problem Code Type: ICD-10; Not Available [facility] 3 05:08:44 Blood glucose outside reference range Completed 201611/21/2022 08/23/2016 - Comments only - Mirian Lizama MD - HgA1Cs have all been below 6 and he is unsure if he had any high fasting glucose levels. We will continue to watch this but it is unlikely ot be the cause of his neuropathy. Problem Code: R73.09; Problem Code Type: ICD-10; Not Available [facility] 3 05:08:44 Problem related to social environment Completed 201803/26/2019 Problem Code: Z60.8; Problem Code Type: ICD-10; Not Available [facility] 3 05:08:44 Superficial injury of finger Completed 202008/10/2021 Problem Code: S60.943A; Problem Code Type: ICD-10; Not Available [facility] 3 05:08:45 Diabetic peripheral neuropathy Active 2023 PONCE HUGHES MD [address], [place], [address] , [facility] 4 16:24:56 Hypertriglycer idemia Active 2016 Lovely anaya, [facility] 4 13:16:56 Pain of right ankle joint Active [address], [place], [address] , [facility] 4 12:33:41 Type 2 diabetes mellitus Active [address], [place] [id number] , [facility] 4 12:55:49 Pain in right foot Active [address], [address] 4 15:51:52 Pain of right calf Active [address], [address] 4 15:52:22 Hypertensive disorder Active [address], [address] 4 16:54:29 Charcot's arthropathy Active [address], [address] 4 16:28:09 Charcot's arthropathy Active [address], [address] 4 10:26:51 Hyperlipidemia Active [address], [address] 4 11:17:15 Problem Notes None recorded. Procedures Surgical History Date Name Laterality Status Provider Name and Address Organization Details Recorded Time 2 Colonoscopy completed SHAYNA ALVARENGA, [facility] 03/11/2023 13:08:41 Imaging Results None recorded. Procedure Notes None recorded. Medical Equipment None Reported. Allergies Allergen ID Allergen Name Allergen Category Reaction Reaction Severity Criticality Documentation Date Start Date Code Code System Note Provider Name and Address Organization Details Recorded Time 78498 Augmentin medicatio n rash mild low 07/05/2023 60346 2 RxNorm Camila Abdi [facility]. 4 15:31:33 Medications Name Sig Start Date Stop Date Status Note LastModified by Organization Details LastModified Time furosemide 40 mg tablet TAKE ONE TABLET BY MOUTH EVERY DAY active Not Available Not Available No t Available metformin 500 mg tablet TAKE ONE TABLET BY MOUTH TWICE A DAY active Not Available Not Available No t Available prednisone 10 mg tablet Take 5 tablets by mouth x 3 days, then 4 tablets by mouth x 3 days, then 3 tablets by mouth x 3 days, then 2 tablets by mouth x 3 days, then 1 tablet by mouth x 3 days, then stop 04/07 completed Not Available Not Available Not Available gabapentin 600 mg tablet Take 1 tab by mouth three times daily 2017 active Not Available Not Available Not Avai lable atorvastati n 10 mg tablet TAKE ONE TABLET BY MOUTH EVERY DAY active Not Available Not Available No t Available nystatin 100,000 unit/gram topical ointment Apply 1 a small amount to affected area twice a day use until healed. 06/26 completed Not Available Not Available Not Available fluconazole 150 mg tablet Take 1 tablet by mouth once a day 06/26 completed Not Available Not Available Not Available atenolol 100 mg tablet TAKE ONE TABLET BY MOUTH TWICE A DAY active Not Available Not Available No t Available lisinopril 20 mg tablet Take 1 tab by mouth daily 2016 active Not Available Not Available Not Avai lable prednisone 20 mg tablet TAKE 4 TABLETS EVERY MORNING FOR 3 DAYS; THEN 3 TABLETS EVERY MORNING FOR 1 WEEK; THEN 2 TABLETS BY MOUTH EVERY MORNING FOR 1 WEEK; THEN 1 T 03/12 completed Not Available Not Available Not Available thiamine HCl (vitamin B1) 100 mg tablet 03/12 completed Not Available Not Available Not Available sildenafil 100 mg tablet TAKE 1 TABLET BY MOUTH 30MINUTES PRIOR TO INTERCOUR SE active Not Available Not Available No t Available triamcinolo ne acetonide 0.1 % topical cream APPLY A THIN LAYER TO AFFECTED AREA(S) TWO TIMES A DAY 07/18 completed Not Available Not Available Not Available citalopram 20 mg tablet TAKE ONE TABLET BY MOUTH EVERY DAY active Not Available Not Available No t Available Lipitor 40 mg tablet Take 1 tab by mouth at bedtime 08/20 completed Not Available Not Available Not Available cephalexin 500 mg capsule Take 1 capsule by mouth four times a day For 5 to 7 days. 04/11 completed Not Available Not Available Not Available fluoxetine 20 mg tablet Take one tablet by mouth daily. 2017 active Not Available Not Available Not Avai lable lisinopril 30 mg tablet TAKE ONE TABLET BY MOUTH EVERY DAY 03/12 completed Not Available Not Available Not Available gabapentin 300 mg capsule TAKE THREE CAPSULES BY MOUTH EVERY DAY active Not Available Not Available No t Available lisinopril 20 mg-hydrochl orothiazide 25 mg tablet TAKE TWO TABLETS BY MOUTH EVERY DAY 03/12 completed Not Available Not Available Not Available hydroxyzine HCl 25 mg tablet 1 tablet by mouth four times a day As needed for itching INSTEAD OF BENADRYL 04/02 completed Not Available Not Available Not Available hydrochloro thiazide 25 mg tablet Take 1 tab by mouth daily 09/01 completed Not Available Not Available Not Available Percocet 5 mg-325 mg tablet tid prn 02/28 completed er 02/17 Not Available Not Available Not Available lisinopril 40 mg tablet TAKE ONE TABLET BY MOUTH EVERY DAY active Not Available Not Available No t Available sodium fluoride 1.1 % dental gel APPLY TO TEETH AFTER BRUSHING WITH REGULAR TOOTHPAST E,SPIT EXCEESS. NOTHING BY MOUTH FOR 30 MIN AFTER USE active Not Available Not Available No t Available Levitra 20 mg tablet Take 09/07 completed Not Available Not Available Not Available sildenafil (pulmonary hypertensio n) 20 mg tablet Take 1 tablet by mouth every day as needed prior to intercour se 2017 active Not Available Not Available Not Avai lable multivitami n 1 tab a day 2016 active Not Available Not Available Not Avai lable ProAir HFA 90 mcg/actuati on aerosol inhaler Inhale 2 puff as directed every four to six hours as needed cough and shortness of breath 01/25 completed Not Available Not Available Not Available cyanocobala min (vitamin B-12) 1,000 mcg capsule Take 1 cap by mouth daily 2016 active Not Available Not Available Not Jamil edgar Mehreen DVT-PE Treatment 30-Day Starter 5 mg (74 tablets) in dose pack 10 mg bid 02/28 completed ER 02/17 Not Available Not Available Not Available Vitals Date Recorded Body height Body mass index (BMI) Body weight Body temperature Oxygen saturation Oxygen saturation in Arterial blood by Pulse oximetry Heart rate Respiratory rate Heart rate Systolic blood pressure Diastolic blood pressure Systolic blood pressure Diastolic blood pressure Provider Name and Address Organization Details Last Updated DateTime 4 179.07 cm 37.5 kg/m2 350546. 98 g 97.7 [degF] 96 % 96 % 80 /min 18 /min 55 /min 191 mm[Hg] 118 mm[Hg] 202 mm[Hg] 165 mm[Hg] Camila Abdi [facility] 4 15:30:59 Social History Question Answer Notes LastModified by Organizat ion Details LastModified Time Tobacco Smoking Status Current Every Day Smoker SAHYNA ALVARENGA, [facility] 03/12/2023 15:54:45 Would You Say That, In General, Your Health Is Fair Information not available 03/12/2023 How Often In The Past Year Have You Used Marijuana (including Smoking, Vaping, Dabbing, Or Edibles)? 4 Or More Times Per Week Information not available 03/12/2023 How Often In The Past Year Have You Used Prescription Medications That Were Not Prescribed To You? Never Information not available 03/12/2023 How Often In The Past Year Have You Used Other Drugs (for Example, Heroin, Cocaine, Meth, Salvia, Inhalants)? Never Information not available 03/12/2023 Have You Ever Used IV Drugs? No Information not available 03/12/2023 What Was The Date Of Your Most Recent Tobacco Screening? 07/05/2023 Information not available 07/05/2023 What Is Your Current Pack Years? 20-29paalexander todd Information not available 03/12/2023 At What Age Did You Start Smoking Tobacco? 11 Information not available 03/12/2023 How Much Tobacco Do You Smoke? 0.5 PPD Information not available 03/12/2023 Has Tobacco Cessation Counseling Been Provided? Yes Information not available 03/12/2023 On What Date Was Tobacco Cessation Counseling Provided? 07/05/2023 Information not available 07/05/2023 Do You Or Have You Ever Used Any Other Forms Of Tobacco Or Nicotine? No Information not available 03/12/2023 Sex: Male Functional Status None recorded. Mental Status None recorded. Family History Relationship Description Onset Age of this Age Resolved Age Notes Notes:*Problem: - Mother is healthy - Father from suicide when pt was 8 years old - MGF stroke - Father's side had alcoholism - No known hx of DM Medical History No medical history recorded. Immunizations Vaccine Type Date Status Provider Name and Address Organization Details Recorded Time Tdap 02/28/2018 completed Not Available [facility] 05:37:21 Td(adult) unspecified formulation 11/13/2007 completed Not Available [facility] 01/04/2023 05:37:21 zoster recombinant 06/18/2022 completed Not Available [facility] 01/04/2023 05:37:21 zoster recombinant 08/10/2021 completed Not Available [facility] 01/04/2023 05:37:21 COVID-19, mRNA, LNP-S, PF, 100 mcg/0.5mL dose or 50 mcg/0.25mL dose 05/24/2020 completed Not Available [facility] 01/04/2023 05:37:21 COVID-19, mRNA, LNP-S, PF, 100 mcg/0.5mL dose or 50 mcg/0.25mL dose 06/21/2020 completed Not Available [facility] 01/04/2023 05:37:21 pneumococcal polysaccharide PPV23 06/12/2013 completed Not Available [facility] 2022 05:37:22 influenza, unspecified formulation 11/29/2014 completed Not Available [facility] 01/04/2023 05:37:22 Past Encounters Encounter ID Performer Location Encounter Start Date Encounter Closed Date Diagnosis/Indication Diagnosis SNOMED-CT Code [id number] MIRIAN LIZAMA MD [facility] [address] [place] [address] 06/14/2023 11:50:42 06/14/2023 12:56:52 Pain of right ankle joint 883973093006799 06 Type 2 sylwia betes mellitus 26388355 Alcohol abuse 69746149 Nicotine dependence 5629 4008 Essential hypertension 30434808 [id number] [address] [place] [address] 07/05/2023 11:34:50 07/05/2023 15:59:02 Pain in right foot 111215037735258 Pain of right calf 15220 7920421607 3 Hypertensive disorder 38 847872 Charcot's arthropathy 35 7551467 Health Concerns Section Related Observation LastModified by Organization Detai ls LastModified Time None Recorded Concern Status LastModified by Organization Details LastModified Time None Recorded Payers Encounter Date Sequence Insurance Name Policy Number Policy Hernandez Covered Member ID Hernandez Member ID Guarantor Name 07/05/2023 1 [place] [facility] (POS) [place] [id number] [place] Notes Date Note Type Note Provider Name and Address Organization Details Recorded Time 07/05/2023 text/html HPI Notes: Sarai miranda is a 53-year-old male who presents with right foot and calf pain and swelling. He states he fell through his kitchen floor last year and never followed up on it. He has been recently diagnosed with diabetes and has had neuropathy for some time. He saw his primary care provider 2 to 3 weeks ago because of some pain and swelling in the feet and he has a referral to orthopedics but has not yet seen them. He reports that in the last few days the pain and swelling has greatly worsened. He feels like he can hear crackling in the foot with movement. He endorses that he also had a blood clot of the right lower extremity in 2016 which was rather significant. Unsure how long he was on blood thinners. Has not had clots otherwise. Has not had family history of clots. Does not believe he was tested for any genetic factors. Since foot has worsened recently he has not had fevers or ill symptoms. No chest pain or shortness of breath. He has not yet had an x-ray of the foot. CHRISTINE HARRISON PA-C [address], [place], [address], [facility]. 07/06/2023 16:28:29
--- OUTSIDE RECORDS SUMMARY | 2023-10-03 01:22 | XMS_ITS | Encounter Summary ---
Author Organization [facility] Address [address] [place] [address] Care Team Providers Care Mill Roll Rewinder Name Role Phone Mirian Malcolm MD Primary Care Provider [phone] Encounter Details Date Type Department Care Team (Late st Contact Info) Description 10/08/2020 Lab Requisition [facility] Pathology & Laboratory Medicine - [facility] [address], [place] [id number] Kathryn Francis, DO [address] [place] [address] Benign neoplasm, unspecified site Social History Tobacco Use Types Packs/Day Years Used Date Smoking Tobacco: Never Assessed Sex and Gender Information Value Date Recorded Sex Assigned at Not on file Gender Identity Not on file Sexual Orientation Not on file documented as of this encounter Plan of Treatment Upcoming Encounters Date Type Department Care Team (Late st Contact Info) Description 10/14/2023 11:00 EDT Office Visit [facility] Foot & Ankle Program - [address] [place] [address] Philip Mckeon MD [address] [place] [phone] documented as of this encounter Procedures Procedure Name Priority Date/Time Associated Diagnosis Comments SURGICAL PATHOLOGY Today 10/07/2020 12 :21 EDT Benign neoplasm, unspecified site documented in this encounter Results * SURGICAL PATHOLOGY (10/07/2020 12:21 EDT) Note to Patient The following pathology results have been interpreted by your pathologist and may be available to you before your health provider has had the opportunity to review them. Please allow time for your provider to receive these results and explore management options, if applicable. 10/10/2020 13:17 [facility] Final Diagnosis A. COLON, 80 CMS, POLYPS X3, BIOPSY: - Tubular adenomas. B. COLON, CECUM, POLYP, BIOPSY: - Tubulovillous adenoma, completely excised. C. COLON, 20 CMS, POLYPS X3, BIOPSY: - Tubulovillous adenomas. - Hyperplastic polyps. D. RECTUM, POLYPS X2, BIOPSY: - Hyperplastic polyps. 10/10/2020 13:17 [facility] Attestation By the signature below, the attending physician certifies that they have 1) personally conducted a gross and/or microscopic examination of the described specimen(s), and/or personally interpreted the results of laboratory testing of the described specimen(s), and 2) personally rendered or confirmed the above diagnosis. 10/10/2020 13:17 [facility] at 1317 Clinical History Screening, family history 10/10/2020 13:17 [facility] Gross Description A. Received in formalin labelled with proper patient identification (initials R, S) and 80 cm colon polyps x3 are 5 canela-white tissues (0.1 x 0.1 x 0.1 cm up to 0.3 x 0.3 x 0.1 cm). Submitted entirely in A1. B. Received in formalin labelled with proper patient identification (initials R, S) and 30 cm colon polyp is a single pedunculated dark brown polypoid tissue (1.3 x 1.2 x 0.6 cm). The specimen is sectioned and submitted entirely in B1 and B2. C. Received in formalin labelled with proper patient identification (initials R, S) and 20 cm colon polyps x3 are 4 canela-brown a polypoid tissue fragments (0.2 x 0.2 x 0.1 cm up to 1.0 x 0.9 x 0.8 cm). The specimens are submitted entirely as follows: BLOCK ALBARADO C1- 2 tissues, each intact C2- single polyp, bisected C3-C4 single polyp, sectioned D. Received in formalin labelled with proper patient identification (initials R, S) and rectal polyps x2 are 3 canela-white tissues (0.2 x 0.2 x 0.1 cm to 0.4 x 0.3 x 0.1 cm). The specimen is submitted entirely in D1. RAFAEL CERON(ASCP) 10/08/2020 14:10 10/10/2020 13:17 EDT [facility] Performing Lab [facility] 10/10/2020 13:17 EDT [facility] Scanned Images 10/10/2020 13:17 EDT [facility] Tissue SPECIMEN FROM RECTUM / Unknown 10/07/2020 12:21 EDT 10/08/2020 8:44 EDT Tissue specimen (specimen) COLON STRUCTURE / Unknown 10/07/2020 12:21 EDT 10/08/2020 8:44 EDT Tissue specimen (specimen) COLON STRUCTURE / Unknown 10/07/2020 12:21 EDT 10/08/2020 8:44 EDT Tissue specimen (specimen) SPECIMEN FROM RECTUM / Unknown 10/07/2020 12:21 EDT 10/08/2020 8:44 EDT Kathryn Francis DO PATHOLOGY ORDERABLES [facility] [address] [place] [address] documented in this encounter Visit Diagnoses Diagnosis Benign neoplasm, unspecified site documented in this encounter Care Teams Mill Roll Rewinder Relationship Specialty Start Date End Date Mirian Malcolm MD [address] [place] [address] PCP - General Family Medicine - Primary Care 09/25/20 documented as of this encounter
--- OUTSIDE RECORDS SUMMARY | 2023-10-03 01:22 | XMS_ITS | Encounter Summary ---
Author Organization [facility] Address [address] [place] [address] Care Team Providers Care Ux Researcher Name Role Phone Mirian aMlcolm MD Primary Care Provider [phone] Reason for Referral * (Routine/Next Available) - Receiving Office to Obtain Authorization Specialty Diagnoses / Procedures Referred By Contac t Referred To Contact Procedures XR OUTSIDE IMAGES RIGHT LOWER EXTREMITY Imaging, External Referral ID Status Reason Start Date Expiration Date Visits Requested Visits Authorized [id number] Receiving Office to Obtain Authorization 08/13/2023 1 1 Reason for Visit * (Routine/Next Available) - Receiving Office to Obtain Authorization Specialty Diagnoses / Procedures Referred By Contac t Referred To Contact Procedures XR OUTSIDE IMAGES RIGHT LOWER EXTREMITY Imaging, External Referral ID Status Reason Start Date Expiration Date Visits Requested Visits Authorized [id number] Receiving Office to Obtain Authorization 08/13/2023 1 1 Encounter Details Date Type Department Care Team (Latest Contact Info) Description 08/01/2023 0:05 EDT - 08/01/2023 23:59 EDT Hospital Encounter [facility] [place] Discharge Disposition: Home or Self Care Social History Tobacco Use Types Packs/Day Years Used Date Smoking Tobacco: Never Assessed Sex and Gender Information Value Date Recorded Sex Assigned at Not on file Gender Identity Not on file Sexual Orientation Not on file documented as of this encounter Discharge Disposition Disposition Code Departure Means Destination Home or Self Care documented in this encounter Plan of Treatment Upcoming Encounters Date Type Department Care Team (Late st Contact Info) Description 10/14/2023 11:00 EDT Office Visit [facility] Foot & Ankle Program - [facility] [address] [place], [place] [id number] Philip Mckeon MD [address] [place] [phone] documented as of this encounter Procedures Procedure Name Priority Date/Time Associated Diagnosis Comments XR OUTSIDE IMAGES RIGHT LOWER EXTREMITY Routine 08/01/2023 13:20 EDT documented in this encounter Results * XR OUTSIDE IMAGES RIGHT LOWER EXTREMITY (08/01/2023 13:20 EDT) Narrative 08/13/2023 13:21 EDT This is a non-reportable exam. External Imaging IMG OTHER IMAGING OR DERABLES documented in this encounter Visit Diagnoses Not on filedocumented in this encounter Care Teams Ux Researcher Relationship Specialty Start Date End Date Mirian Malcolm MD [address] [place] [address] PCP - General Family Medicine - Primary Care 09/25/20 documented as of this encounter
--- OUTSIDE RECORDS SUMMARY | 2023-10-03 01:22 | XMS_ITS | Encounter Summary ---
Author Organization [facility] Address [address] [place] [address] Care Team Providers Care Patient Information Coordinator Name Role Phone Mirian Malcolm MD Primary Care Provider [phone] Reason for Referral * (Routine/Next Available) - Receiving Office to Obtain Authorization Specialty Diagnoses / Procedures Referred By Contac t Referred To Contact Procedures XR OUTSIDE IMAGES LEFT LOWER EXTREMITY Imaging, External Referral ID Status Reason Start Date Expiration Date Visits Requested Visits Authorized [id number] Receiving Office to Obtain Authorization 08/13/2023 1 1 Reason for Visit * (Routine/Next Available) - Receiving Office to Obtain Authorization Specialty Diagnoses / Procedures Referred By Contac t Referred To Contact Procedures XR OUTSIDE IMAGES LEFT LOWER EXTREMITY Imaging, External Referral ID Status Reason Start Date Expiration Date Visits Requested Visits Authorized [id number] Receiving Office to Obtain Authorization 08/13/2023 1 1 Encounter Details Date Type Department Care Team (Latest Contact Info) Description 08/01/2023 - 08/01/2023 0:04 EDT Hospital Encounter [facility] [place] Discharge Disposition: Home or [...] Info) Description 10/14/2023 11:00 EDT Office Visit [facility] Foot & Ankle Program - [address] [place] [address] Philip Mckeon MD [address] [place] [phone] documented as of this encounter Procedures Procedure Name Priority Date/Time Associated Diagnosis Comments XR OUTSIDE IMAGES LEFT LOWER EXTREMITY Routine 08/01/2023 13:20 EDT documented in this encounter Results * XR OUTSIDE IMAGES LEFT LOWER EXTREMITY (08/01/2023 13:20 EDT) Narrative 08/13/2023 13:20 EDT This is a non-reportable exam. External Imaging IMG OTHER IMAGING OR DERABLES documented in this encounter Visit Diagnoses Not on filedocumented in this encounter Care Teams Patient Information Coordinator Relationship Specialty Start Date End Date Mirian Malcolm MD [address] [place] [address] PCP - General Family Medicine - Primary Care 09/25/20 documented as of this encounter
--- OUTSIDE RECORDS SUMMARY | 2023-10-03 01:22 | XMS_ITS | Encounter Summary ---
Author Organization [facility] Address [address] [place] [address] Care Team Providers Care Computer Processing Scheduler Name Role Phone Mirian Malcolm MD Primary Care Provider [phone] Encounter Details Date Type Department Care Team (Late st Contact Info) Description 01/02/2022 Lab Requisition [facility] Pathology & Laboratory Medicine - [facility] [address], [place] [id number] Matt Collins MD [address] [place] [address], [address] [place] [address] Encounter for other general examination Social History Tobacco Use Types Packs/Day Years Used Date Smoking Tobacco: Never Assessed Sex and Gender Information Value Date Recorded Sex Assigned at Not on file Gender Identity Not on file Sexual Orientation Not on file documented as of this encounter Plan of Treatment Upcoming Encounters Date Type Department Care Team (Late st Contact Info) Description 10/14/2023 11:00 EDT Office Visit [facility] Foot & Ankle Program - [address] [place] [address] Philip Mckeon MD [address] [place] [phone] documented as of this encounter Procedures Procedure Name Priority Date/Time Associated Diagnosis Comments SURGICAL PATHOLOGY Today 01/02/2022 9: 45 EST Encounter for other general examination documented in this encounter Results * SURGICAL PATHOLOGY (01/02/2022 9:45 EST) Note to Patient The following pathology results have been interpreted by your pathologist and may be available to you before your health provider has had the opportunity to review them. Please allow time for your provider to receive these results and explore management options, if applicable. 01/03/2022 10:33 [facility] Final Diagnosis A. COLON, CECUM, POLYP, BIOPSY: - Colonic mucosa with no significant diagnostic abnormalities. - No definite polyp identified. - Benign lymphoid aggregates noted. B. COLON, 100 CMS, POLYP, BIOPSY: - Tubular adenoma. C. COLON, 100 CMS, POLYPS, BIOPSY: - Tubular adenomas. D. COLON, 80 CMS, POLYP, BIOPSY: - Tubular adenoma. E. COLON, 15 CMS, POLYP, BIOPSY: - Hyperplastic polyp. 01/03/2022 10:33 [facility] Attestation By the signature below, the attending physician certifies that they have 1) personally conducted a gross and/or microscopic examination of the described specimen(s), and/or personally interpreted the results of laboratory testing of the described specimen(s), and 2) personally rendered or confirmed the above diagnosis. 01/03/2022 10:33 [facility] at 1033 Clinical History Colon cancer screening; history of polyps; clinical diagnosis code: Z12.11 01/03/2022 10:33 [facility] Gross Description A. Received in formalin labelled with proper patient identification (initials R, S) and cecal polyp is a light canela tissue measuring 0.5 x 0.2 x 0.1 cm. Submitted intact in A1. B. Received in formalin labelled with proper patient identification (initials R, S) and polyp at 1 M #1 is a light canela tissue measuring 0.2 x 0.2 x 0.1 cm. Submitted intact in B1. C. Received in formalin labelled with proper patient identification (initials R, S) and polyp at 1 M #2 are 2 canela-pink tissues measuring 0.3 x 0.3 x 0.2 cm and 0.8 x 0.3 x 0.2 cm. Also present is an aggregate of smaller canela-pink tissue fragments measuring 0.8 x 0.2 x 0.1 cm. Polypoid tissues are submitted intact in C1 and the remaining tissue is submitted intact in C2. D. Received in formalin labelled with proper patient identification (initials R, S) and polyp at 80 cm is a canela-pink tissue measuring 0.5 x 0.3 x 0.2 cm. Submitted intact in D1. E. Received in formalin labelled with proper patient identification (initials R, S) and polyp at 15 cm is a canela-pink tissue measuring 0.6 x 0.2 x 0.2 cm. Submitted intact in E1. RAFAEL HOLBROOK(ASCP) 01/02/2022 19:32 01/03/2022 10:33 EST [facility] Performing Lab [facility] 01/03/2022 10:33 EST [facility] Scanned Images 01/03/2022 10:33 EST [facility] Tissue POLYP OF COLON / Unknown 01/02/2022 9:45 EST 01/02/2022 16:41 EST Tissue specimen (specimen) POLYP OF COLON / Unknown 01/02/2022 9:45 EST 01/02/2022 16:41 EST Tissue specimen (specimen) POLYP OF COLON / Unknown 01/02/2022 9:45 EST 01/02/2022 16:41 EST Tissue specimen (specimen) POLYP OF COLON / Unknown 01/02/2022 9:45 EST 01/02/2022 16:41 EST Tissue specimen (specimen) POLYP OF COLON / Unknown 01/02/2022 9:45 EST 01/02/2022 16:41 EST Matt Collins MD PATHOLOGY ORDERABLES Performing Organization Address City/State/[facility] Co de Phone Number [facility] [address] [place] [phone] documented in this encounter Visit Diagnoses Diagnosis Encounter for other general examination documented in this encounter Care Teams Computer Processing Scheduler Relationship Specialty Start Date End Date Mirian Malcolm MD [address] [place] [phone] PCP - General Family Medicine - Primary Care 09/25/20 documented as of this encounter
--- OUTSIDE RECORDS SUMMARY | 2023-10-03 01:22 | XMS_ITS | Referral Summary ---
Author Organization [facility] Address [address] [place] [address] Care Team Providers Care Ice Cutter Name Role Phone Mirian Malcolm MD Primary Care Provider [phone] Encounters Date Type Department Care Team Description 08/01/2023 0:05 EDT - 08/01/2023 23:59 EDT Hospital Encounter [facility] [place] Discharge Disposition: Home or Self Care 08/01/2023 - 08/01/2023 0:04 EDT Hospital Encounter [facility] [place] Discharge Disposition: Home or Self Care 07/12/2023 - 07/12/2023 23:59 EDT Hospital Encounter [facility] [place] Discharge Disposition: Home or Self Care 07/05/2023 - 07/05/2023 23:59 EDT Hospital Encounter [facility] [place] Discharge Disposition: Home or Self Care from Last 3 Months Social History Tobacco Use Types Packs/Day Years Used Date Smoking Tobacco: Never Assessed Sex and Gender Information Value Date Recorded Sex Assigned at Not on file Gender Identity Not on file Sexual Orientation Not on file Plan of Treatment Upcoming Encounters Date Type Department Care Team (Late st Contact Info) Description 10/14/2023 11:00 EDT Office Visit [facility] Foot & Ankle Program - [address] [place] [address] Philip Mckeon MD [address] [place] [phone] Procedures Procedure Name Priority Date/Time Associated Diagnosis Comments XR OUTSIDE IMAGES RIGHT LOWER EXTREMITY Routine 08/01/2023 13:20 EDT XR OUTSIDE IMAGES LEFT LOWER EXTREMITY Routine 08/01/2023 13:20 EDT XR OUTSIDE IMAGES LEFT LOWER EXTREMITY Routine 07/12/2023 13:20 EDT XR OUTSIDE IMAGES RIGHT LOWER EXTREMITY Routine 07/05/2023 13:21 EDT from Last 3 Months Results * XR OUTSIDE IMAGES RIGHT LOWER EXTREMITY (08/01/2023 13:20 EDT) Narrative 08/13/2023 13:21 EDT This is a non-reportable exam. External Imaging IMG OTHER IMAGING OR DERABLES * XR OUTSIDE IMAGES LEFT LOWER EXTREMITY (08/01/2023 13:20 EDT) Narrative 08/13/2023 13:20 EDT This is a non-reportable exam. External Imaging IMG OTHER IMAGING OR DERABLES * XR OUTSIDE IMAGES LEFT LOWER EXTREMITY (07/12/2023 13:20 EDT) Narrative 08/13/2023 13:20 EDT This is a non-reportable exam. External Imaging IMG OTHER IMAGING OR DERABLES * XR OUTSIDE IMAGES RIGHT LOWER EXTREMITY (07/05/2023 13:21 EDT) Narrative 08/13/2023 13:21 EDT This is a non-reportable exam. External Imaging IMG OTHER IMAGING OR DERABLES from Last 3 Months Care Teams Ice Cutter Relationship Specialty Start Date End Date Mirian Malcolm MD [address] [place] [phone] PCP - General Family Medicine - Primary Care 09/25/20
--- OUTSIDE RECORDS SUMMARY | 2023-10-03 01:22 | XMS_ITS | Data Portability ---
Author Organization [facility], [facility] Address Ruth Elizalde [place] [address] Assessment Encounter Date Assessment Date Assessment LastModified by Organization Details LastModified Time 06/14/2023 06/14/2023 The total time devoted to today's encounter, including both the mcdl-uh-rdyh time with the patient and/or family/caregi cayla and tlv-fxph-ju-f saritha time I personally spent is 36 minutes. lbisson Not available 06/14/2023 15:27:13 07/19/2023 07/19/2023 The total time devoted to today's encounter, including both the alit-ou-wmya time with the patient and/or family/caregi cayla and hqi-juua-tp-f saritha time I personally spent is 38 minutes. lbisson Not available 07/19/2023 11:17:24 Plan of Treatment Reminders Order Date Submit Date Provider Last Modified By Organization Details Last Modified Time Details Appointments Office Visit 30 2023 11:00A Tabitha LIZAMA Not available Not available Not available Lab TSH, serum, reflex free T4 2023 024 [email or web address] [facility] (Registration ), [address] , [place], [address], 03/19/2023 07:57:20 hemoglobi n A1C, fingersti ck 2023 024 [facility], [address] [place] [address], [address], 03/12/2023 20:50:27 microalbu min/creat inine, mass ratio, urine 2023 024 [email or web address] [facility], [address] [place], [address], 03/12/2023 20:50:27 hemoglobi n A1C, fingersti ck 2023 024 tere [facility], [address] [place], [address], 06/14/2023 15:42:52 CBC w/ auto diff 2023 024 [facility], [address] [place] [address] [place], [address] 07/05/2023 16:44:03 CMP, serum or plasma 2023 [facility], [address] [place] [address] [place], [address] 07/05/2023 16:50:06 Referral natural resources extension educator referral - per Dr. Hughes's office note: A1c is 7.4% up from 7.0. Still in good range, he discussed try get back with some diet improveme nts given the slight worsening . Microalbu min is unremarka ble. Referral to diet education per his request 2023 024 [facility], [address] [place] [address] [place], [address], 05/07/2023 10:33:26 orthopedi c surgeon referral 2023 024 [facility], [address], [place], [address], 07/23/2023 12:09:10 podiatris t referral - Please be aware that there are some discrepan cies between the local radiologi st read and the V rad read. I question whether or not patient needs MRI or CT for further evaluatio n. I would like you to help better manage this. Please call our office with any questions . 2023 024 [email or web address], [address] , [place], [address], 08/14/2023 12:29:25 orthopedi c foot/ankl e surgeon referral - PANDA 2023 024 [email or web address] [facility], [address] , [place], [address], 09/10/2023 14:02:38 Procedures None recorded. Surgeries None recorded. Imaging US, duplex, venous, lower extremity , unilatera l 2023 024 [facility], [address] [place] [address] [place], [address] 07/05/2023 16:59:40 XR, foot, 3 or more view 2023 024 [facility], [address] [place] [address] [place], [address] 07/05/2023 17:10:29 Medication Orders atorvasta tin 10 mg tablet 2023 024 tere [id number], [address], [place], [address], 07/19/2023 13:09:49 Patient TargetsNo targets recorded. Patient Instructions Encounter Date Encounter Id Patient Instructions Last Modified By Organization Details Last Modified Time 07/05/2023 [id number] 1. Patient was sent from the clinic without discharge instructions because he needed to get quickly over to the hospital for ultrasound prior to them closing. All instructions were given verbally and are as above Not available 07/06/2023 16:27:20 Reason for Referral Clinical Systems Educator Referral f or Diabetic peripheral neuropathy per Dr. Hughes's office note: A1c is 7.4% up from 7.0. Still in good range, he discussed try get back with some diet improvements given the slight worsening. Microalbumin is unremarkable. Referral to diet education per his request Referring Physician: Ponce Hughes, Family Medicine, Encounter Date: 03/12/2023 Diabetic Ophthalmology Refer ral for Type 2 diabetes mellitus without complication Referring Physician: Ponce Hughes, Family Medicine, Encounter Date: 03/18/2023 Orthopedic Surgeon Referral for Pain of right ankle joint Referring Physician: Mirian Lizama, [facility], Encounter Date: 06/14/2023 Soft Mud Molder Referral for Rani cot's arthropathy Please be aware that there are some discrepancies between the local radiologist read and the V rad read. I question whether or not patient needs MRI or CT for further evaluation. I would like you to help better manage this. Please call our office with any questions. Referring Physician: Christine Harrison, [facility], Encounter Date: 07/05/2023 Orthopedic Foot/ankle Surgeo n Referral for Charcot's arthropathy PANDA Referring Physician: Mirian Lizama [facility], Encounter Date: 07/19/2023 Results Created Date Observation Date Name Description Value Unit Range Abnormal Flag LastModifiedBy Organization Detail LastModifiedTime 03/12/19 24 03/12/2023 TSH (W/RE F FT4) TSH (w/ref FT4) 2.56 uIU/m L 0.36-3 [address] [facility] [address] [facility] [place], [address] 03/12/2023 21:49:57 03/12/19 24 03/12/2023 micro album in/cr eatin ine, mass ratio , urine microalbumin 18.6 mcg/L Not Available [address], [address], 03/12/2023 16:49:23 03/12/19 24 03/12/2023 micro album in/cr eatin ine, mass ratio , urine creatine 61.5 mg/L Not Available [address], [address], 03/12/2023 16:49:23 03/12/19 24 03/12/2023 micro album in/cr eatin ine, mass ratio , urine microalbumin /creatinine 30.2 mcg/m g Not Available [address], [address], 03/12/2023 16:49:23 03/12/19 24 03/12/2023 hemog lobin A1C, rajendra rssoledad k HGBA1C 7.4 % <5.7 Not Available [address], [address], 03/12/2023 16:01:28 06/14/19 24 06/14/2023 hemog lobin A1C, rajendra rstic k hemoglobin A1C 7.0 % <5.7 Not Available [address], [address], 06/14/2023 12:43:37 07/05/19 24 07/05/2023 COMPL ETE BLOOD COUNT W/DIF F WBC 10.10 10_3/ uL 4.4-10 .8 normal Not Available [address] [place], [address] 07/05/2023 16:44:03 07/05/19 24 07/05/2023 COMPL ETE BLOOD COUNT W/DIF F RBC 4.89 10_6/ uL 4.36-5 .78 normal Not Available [address] [place], [address] 07/05/2023 16:44:03 07/05/19 24 07/05/2023 COMPL ETE BLOOD COUNT W/DIF F HGB 16.0 g/dL 13.5-1 7.5 normal Not Available [address] [place], [address] 07/05/2023 16:44:03 07/05/19 24 07/05/2023 COMPL ETE BLOOD COUNT W/DIF F HCT 47.2 % 40.0-5 0.0 normal Not Available [address] [place], [address] 07/05/2023 16:44:03 07/05/19 24 07/05/2023 COMPL ETE BLOOD COUNT W/DIF F MCV 97 fL 80-95 high Not Available [address] [place], [address] 07/05/2023 16:44:03 07/05/19 24 07/05/2023 COMPL ETE BLOOD COUNT W/DIF F MCH 32.7 pg 27.0-3 3.0 normal Not Available [address] [place], [address] 07/05/2023 16:44:03 07/05/19 24 07/05/2023 COMPL ETE BLOOD COUNT W/DIF F MCHC 33.9 % 32.0-3 6.0 normal Not Available [address] [place], [address] 07/05/2023 16:44:03 07/05/19 24 07/05/2023 COMPL ETE BLOOD COUNT W/DIF F RDW 12.0 % 11.8-1 4.1 normal Not Available [address] [place], [address] 07/05/2023 16:44:03 07/05/19 24 07/05/2023 COMPL ETE BLOOD COUNT W/DIF F platelet count 280 10_3/ uL 130-40 0 normal Not Available [address] [place], [address] 07/05/2023 16:44:03 07/05/19 24 07/05/2023 COMPL ETE BLOOD COUNT W/DIF F MPV 11.0 fL 8.0-11 .0 normal Not Available [address] [place], [address] 07/05/2023 16:44:03 07/05/19 24 07/05/2023 COMPL ETE BLOOD COUNT W/DIF F neutrophils % 62.1 % Not Available [address] [place], [address] 07/05/2023 16:44:03 07/05/19 24 07/05/2023 COMPL ETE BLOOD COUNT W/DIF F lymphocytes % 26.9 % Not Available [address] [place], [address] 07/05/2023 16:44:03 07/05/19 24 07/05/2023 COMPL ETE BLOOD COUNT W/DIF F monocytes % 8.0 % Not Available [address] [place], [address] 07/05/2023 16:44:03 07/05/19 24 07/05/2023 COMPL ETE BLOOD COUNT W/DIF F eosinophils % 2.1 % Not Available [address] [place], [address] 07/05/2023 16:44:03 07/05/19 24 07/05/2023 COMPL ETE BLOOD COUNT W/DIF F basophils % 0.6 % Not Available [address] [place], [address] 07/05/2023 16:44:03 07/05/19 24 07/05/2023 COMPL ETE BLOOD COUNT W/DIF F immature grans % 0.3 % Not Available [address] [place], [address] 07/05/2023 16:44:03 07/05/19 24 07/05/2023 COMPL ETE BLOOD COUNT W/DIF F nucleated RBC 0.0 % 0.0-0. 3 normal Not Available [address] [place], [address] 07/05/2023 16:44:03 07/05/19 24 07/05/2023 COMPL ETE BLOOD COUNT W/DIF F absolute neutrophil count 6.27 10_3/ uL 1.2-6. 7 normal Not Available [address] [place], [address] 07/05/2023 16:44:03 07/05/19 24 07/05/2023 COMPL ETE BLOOD COUNT W/DIF F absolute lymphocyte count 2.72 10_3/ uL 1.2-3. 4 normal Not Available [address] [place], [address] 07/05/2023 16:44:03 07/05/19 24 07/05/2023 COMPL ETE BLOOD COUNT W/DIF F absolute monocyte count 0.81 10_3/ uL 0.1-0. 8 high Not Available [address] [place], [address] 07/05/2023 16:44:03 07/05/19 24 07/05/2023 COMPL ETE BLOOD COUNT W/DIF F absolute eosinophil count 0.21 10_3/ uL 0.0-0. 7 normal Not Available [address] [place], [address] 07/05/2023 16:44:03 07/05/19 24 07/05/2023 COMPL ETE BLOOD COUNT W/DIF F absolute basophil count 0.06 10_3/ uL 0.0-0. 2 normal Not Available [address] [place], [address] 07/05/2023 16:44:03 07/05/19 24 07/05/2023 COMPR EHENS FROYLAN METAB OLIC PANEL calcium 8.9 mg/dL 8.5-10 .1 normal Not Available [address] [place], [address] 07/05/2023 16:50:06 07/05/19 24 07/05/2023 COMPR EHENS FROYLAN METAB OLIC PANEL glucose 196 mg/dL 74-106 high Not Available [address] [place], [address] 07/05/2023 16:50:06 07/05/19 24 07/05/2023 COMPR EHENS FROYLAN METAB OLIC PANEL BUN 14 mg/dL 7-18 normal Not Available [address] [place], [address] 07/05/2023 16:50:06 07/05/19 24 07/05/2023 COMPR EHENS FROYLAN METAB OLIC PANEL creatinine 0.9 mg/dL 0.70-1 .30 normal Not Available [address] [place], [address] 07/05/2023 16:50:06 07/05/19 24 07/05/2023 COMPR EHENS FROYLAN METAB OLIC PANEL estimated GFR 101.49 mL/min /1.73m 2 Not Available [address] [place], [address] 07/05/2023 16:50:06 07/05/19 24 07/05/2023 COMPR EHENS FROYALN METAB OLIC PANEL total protein 7.2 g/dL 6.4-8. 2 normal Not Available [address] [place], [address] 07/05/2023 16:50:06 07/05/19 24 07/05/2023 COMPR EHENS FROYLAN METAB OLIC PANEL albumin 3.7 g/dL 3.4-5. 0 normal Not Available [address] [place], [address] 07/05/2023 16:50:06 07/05/19 24 07/05/2023 COMPR EHENS FROYLAN METAB OLIC PANEL bilirubin, total 0.7 mg/dL 0.2-1. 0 normal Not Available [address] [place], [address] 07/05/2023 16:50:06 07/05/19 24 07/05/2023 COMPR EHENS FORYLAN METAB OLIC PANEL alk phos 117 U/L 46-116 high Not Available [address] [place], [address] 07/05/2023 16:50:06 07/05/19 24 07/05/2023 COMPR EHENS FROYLAN METAB OLIC PANEL sodium 139 mmol/ L 136-14 5 normal Not Available [address] [place], [address] 07/05/2023 16:50:06 07/05/19 24 07/05/2023 COMPR EHENS FROYLAN METAB OLIC PANEL potassium 3.9 mmol/ L 3.5-5. 1 normal Not Available [address] [place], [address] 07/05/2023 16:50:06 07/05/19 24 07/05/2023 COMPR EHENS FROYLAN METAB OLIC PANEL chloride 101 mmol/ L 98-107 normal Not Available [address] [place], [address] 07/05/2023 16:50:06 07/05/19 24 07/05/2023 COMPR EHENS FROYLAN METAB OLIC PANEL CO2 30.7 mmol/ L 21.0-3 2.0 normal Not Available [address] [place], [address] 07/05/2023 16:50:06 07/05/19 24 07/05/2023 COMPR EHENS FROYLAN METAB OLIC PANEL anion gap 7.3 mmol/ L 3-11 normal Not Available [address] [place], [address] 07/05/2023 16:50:06 07/05/19 24 07/05/2023 COMPR EHENS FROYLAN METAB OLIC PANEL AST 11 U/L 15-37 low Not Available [address] [place] [facility] [place], [address] 07/05/2023 16:50:06 07/05/19 24 07/05/2023 COMPR EHENS FROYLAN METAB OLIC PANEL ALT 23 U/L 16-63 normal Not Available [address] [place] [facility] [place], [address] 07/05/2023 16:50:06 07/05/19 24 07/05/2023 US, duple x, venou s, lower extre mity, unila teral No observ ation record ed. Not Available 07/05/2023 17:37:25 07/05/19 24 07/05/2023 US, duple x, venou s, lower extre mity, unila teral Patien t Name: Supriya Park Unit #: [id number] Loc: DI Orderi ng Provid er: Christine Harrison Accoun t #: [id number] Status : REG CLI Primar [...] tation , and color Dopple r. The toe former ior tibial veins are patent . No [...] error, please notify us immedi ately at [phone] and return the origin al report to us at the addres s above. Thank- you. [email or web address] [facility] [address], [place], [address] 07/06/2023 16:00:54 07/05/19 24 07/05/2023 XR, foot, 3 or more view Patien t Name: XavierSupriya Sergio Unit #: [id number] Loc: DI Orderi ng Provid er: Christine Harrison Accoun t #: [id number] Status : REG CLI Primar [...] the talus. Findin gs may indica te Selden t foot. Due to the irregu larity [...] of the midfoo t consis tent with Selden t foot. Compar maria ines with priors would be helpfu curtis. DATA REPOSI TORY: RADIAT ION DOSE DELIVE [...] the addres s above. Thank- you. [email or web address] [facility] [address] [place], [address] 07/06/2023 16:00:48 07/05/19 24 07/05/2023 XR, foot, 3 or more view No observ ation record ed. [facility] [address], [place], [address], 07/05/2023 17:37:26 07/05/19 24 07/05/2023 [facility] repor t Kimberly t Name: Supriya Park Unit #: [id number] Loc: DI Orderi ng Provid er: Accoun t #: [id number] Status : REG CLI Primar y [...] INES: US LOWER EXTREM ITY VENOUS RT 4:09 PM FINDIN GS: Bones/ joints : [...] lized soft tissue swelli ng. IMPRES AGUS: Selden t change s of the navicu lar bone that is fragme nted. Poorly seen are probab le simila r change s of the distal inferi or talus. Dictat ed and Authen ticate d by: Abbey Harrell MD. Orderi ng:Josee King MD Access ion#=[id number] Ordere d By: CC: ------ ------ ------ ------ ------ ------ ------ ------ ------ ------ ------ ------ ---- Dictat ed By: Report s vrad 1634 1706 Transc ribed By: Esme Merge 1634 This is privil eged, confid ential inform ation intend ed only for the provid er named. Any use or distri bution by any person other than this provid er is strict ly prohib ited. If you receiv e this report in error, please notify us immedi ethanly at [phone] and return the origin al report to us at the addres s above. Thank- you. [facility] [address], [place], [address] 07/05/2023 19:15:52 07/05/19 24 07/05/2023 vrad ad girard Name: Supriya Park Unit #: [id number] Loc: DI Orderi ng Provid er: Accgarrett t #: [id number] Status : REG CLI Primar y [...] MD. Orderi ng:Josee King MD Access ion#=[id number] Ordere d By: CC: ------ ------ ------ ------ ------ ------ ------ ------ ------ ------ ------ ------ ---- Dictat ed By: Report s vrad 1609 1707 Transc ribed By: Di Merge 1609 This is privil eged, confid ential inform ation intend ed only for the provid er named. Any use or distri bution by any person other than this provid er is strict ly prohib ited. If you receiv e this report in error, please notify us immedi ately at [phone] and return the origin al report to us at the addres s above. Thank- you. [address] [place], [address] 07/05/2023 19:15:52 07/05/19 24 07/05/2023 , lucien smith, marychuy shin teral No observ ation record ed. [address] [place], [address], 07/05/2023 17:37:26 07/12/19 24 07/12/2023 x-ray imagi ng repor t Patien t Name: Supriya Park Unit #: [id number] Loc: DI Orderi ng Provid er: Evelyn Byrnes DPM Accoun t #: [id number] Status : REG CLI Primar y Care Provid er: Mirian Lizama Date of Exam: Sex: M Admiss ion Date: : 1969 Age: 53 Exam(s ) XR FOOT LT COMPLE TE EXAM: XR FOOT LT COMPLE TE CLINIC AL HISTOR Y: Pain in lt foot, M79.67 2, Possib le Selden t. TECHNI QUE: 2D digita l imagin [...] There is an enthes ophyte at the toe former ior calcan eus. There is a small [...] the addres s above. Thank- you. lbisson [facility] [address], [place], [address] 07/12/2023 14:55:32 08/01/19 24 08/01/2023 x-ray imagi ng repor t Kimberly t Name: Supriya Park Sergio Unit #: [id number] Loc: DI Orderi ng Provid er: Evelyn Byrnes DPM Accoun t #: [id number] Status : REG CLI Primar y [...] FINDIN GS: 3 views Again noted is Selden t-like fragme ntatio n of the navicu lar bone and distal talus, simila r in appear ance to 2023 with relati ve sparin g of the cuneif orm bones and the cuboid and metata rsal bases. There is no diasta sis of the Lisfra nc joint. Olimpo ing soft tissue swelli ng is again noted. There is no gas in soft tissue s. No vascul ar calcif icatio n. Inferi or calcan eal spur again noted. IMPRES AGUS: Midfoo t fragme ntatio n, simila r appear ance to 2023. DATA REPOSI TORY: RADIAT ION DOSE DELIVE RED: Bill d By: Evelyn Byrnes DPM CC: ------ [...] error, please notify us immedi ately at [phone] and return the origin al report to us at the addres s above. Thank- you. lbisson [facility] [address] [place], [address] 08/02/2023 11:43:53 08/01/19 24 08/01/2023 x-ray imagi ng repor t Kimberly t Name: XavierSupriya [place] Hill Unit #: [id number] Loc: DI Orderi ng Provid er: Evelyn Byrnes DPM Accoun t #: [id number] Status : REG CLI Primar y Care Provid er: Mirian Lizama Date of Exam: Sex: M Admiss ion Date: : 1969 Age: 53 Exam(s ) XR FOOT LT COMPLE TE EXAM: XR FOOT LT COMPLE TE CLINIC AL HISTOR Y: Selden t? latera l foot new lump, pain [...] Small in these 0 fight on the toe former ior calcan eus is again noted. IMPRES [...] M.D. 1841 Transc ribed By: Vaughn CORTES,Daly kwong 1841 This is privil eged, confid ential [...] the addres s above. Thank- you. lbisson [place] [id number] [place], [address] 08/02/2023 11:43:54 08/22/1908/22/2023 x-ray imagi ng repor t Patien t Name: Supriya Park Unit #: [id number] Loc: DI Orderi ng Provid er: Soniya Evelyn DPM Accoun t #: [id number] Status : REG CLI Primar y Care Provid er: Mirian Lizama Date of Exam: Sex: M Admiss ion Date: : 1969 Age: 53 Exam(s ) XR FOOT LT COMPLE TE EXAM: XR FOOT LT COMPLE TE CLINIC AL HISTOR Y: evalua te for worsen ing,DI ABETIC PERIPH ERAL ANGIOP ATHY,L T FOOT PAIN,M 79.672 . TECHNI QUE: [...] eal spur. Small enthes ophyte at the toe former ior calcan eus. JOINTS : There is [...] ed to the prior examin ation from 08/01/19. DATA REPOSI TORY: RADIAT ION DOSE DELIVE RED: Bill d By: Evelyn Byrnes DPM CC: ------ ------ ------ ------ ------ ------ ------ ------ ------ ------ ------ ------ - Dictat ed By: Papo Collins M.D. 151 151 Transc ribed By: Papo Collins 151 This is privil eged, confid ential inform ation intend ed only for the provid er named. Any use or distri bution by any person other than this provid er is strict ly prohib ited. If you receiv e this report in error, please notify us immedi ately at [phone] and return the origin al report to us at the addres s above. Thank- you. lbisson [facility] [address], [place], [address] 08/23/2023 07:22:09 08/22/19 24 08/22/2023 x-ray imagi ng ad t Kimberly t Name: Supriya Park Unit #: [id number] Loc: DI Orderi ng Provid er: Evelyn Byrnes DPM Accoun t #: [id number] Status : REG CLI Primar y [...] There is an enthes ophyte at the toe former ior calcan eus. There is a planta [...] the addres s above. Thank- you. tere [facility] [address] [place], [address] 08/23/2023 07:22:09 Result Notes None recorded. Problems Name Status Onset Date Resolution Date Notes Provider Name and Address Organization Details Recorded Time Varicose veins of lower extremity Active 2016 MARIA DE JESUS Strauss - [facility]. 4 13:16:01 Pure hyperglyceride kiersten Active 2016 MARIA DE JESUS Strauss - [facility]. 4 13:15:46 Type 2 diabetes mellitus without complication [facility] 4 13:15:55 Alcohol abuse Active 2016 [facility]ely [facility] 4 13:14:57 Nicotine dependence Active 2016 [facility] 4 13:15:35 Essential hypertension Active 2016 [facility] 4 13:15:[address] [facility] 4 13:15:01 Counseling Completed 201607/23/2016 07/16/2016 - Comments only - Sara Ann PEDIATRIC AUDIOLOGIST - - F/ u with Dr. Lizama next month for annual physical as planned. F/u sooner for new/worsenin g sx. Problem Code: Z71.89; Problem Code Type: ICD-10; Not Available [facility] 3 05:08:42 Adult health examination [facility] 4 13:14:52 Erectile dysfunction Active 2016 [facility] 4 13:15:26 Bilateral hearing loss Active 2020 [facility] 4 13:15:06 Onychomycosis due to dermatophyte Active 2020 [facility] 4 13:15:40 Malaise Completed 202012/27/2020 12/26/2020 - Comments only - Cinthia HALL - - recovering from viral illness, work note given to return on saturday. recd to get oral rehydrating salts over the counter, discussed bland diet, plenty of rest, fluids and excedrin migraine otc. Return to clinic if not improving or worsening symptoms Problem Code: R53.81; Problem Code Type: ICD-10; Not Available [facility] 3 05:08:43 Carpal tunnel syndrome Active 2021 Lovely anaya, [facility] 4 13:15:13 Edema Active 2022 Lovely anaya, [facility] 4 13:15:20 Heart failure Completed 202212/10/2022 Problem Code: I50.9; Problem Code Type: ICD-10; Not Available [facility] 4 05:36:00 Candidiasis of skin Completed 202008/10/2021 Problem Code: B37.2; Problem Code Type: ICD-10; Not Available [facility] 3 05:08:44 Pain in finger Completed 202008/10/2021 Problem Code: M79.646; Problem Code Type: ICD-10; Not Available [facility] 3 05:08:44 Prediabetes Completed 201611/21/2022 06/26/2021 - [...] for follow-up. Did suggest him seeing the paraeducator he would like to try these other things first. Problem Code: R73.03; Problem Code Type: ICD-10; Not Available [facility] 3 05:08:44 Blood glucose outside reference range Completed 201611/21/2022 08/23/2016 - Comments only - Mirian Lizama MD - HgA1Cs have all been below 6 and he is unsure if he had any high fasting glucose levels. We will continue to watch this but it is unlikely ot be the cause of his neuropathy. Problem Code: R73.09; Problem Code Type: ICD-10; Not Available [facility] 3 05:08:44 Problem related to social environment Completed 201803/26/2019 Problem Code: Z60.8; Problem Code Type: ICD-10; Not Available [facility] 3 05:08:44 Superficial injury of finger Completed 202008/10/2021 Problem Code: S60.943A; Problem Code Type: ICD-10; Not Available [facility] 3 05:08:45 Diabetic peripheral neuropathy Active [address], [facility] [address] , [facility] 4 16:24:56 Hypertriglycer idemia Active 2016 Lovely anaya, [facility] 4 13:16:56 Pain of right ankle joint Active [address], [place], [address] , [facility] 4 12:33:41 Type 2 diabetes mellitus Active [address], [place], [address] , [facility] 4 12:55:49 Pain in right foot Active [address], [place], [address] , [facility] 4 15:51:52 Pain of right calf Active [address], [place], [address] , [facility] 4 15:52:22 Hypertensive disorder Active [address], [place], [address] , [facility] 4 16:54:29 Charcot's arthropathy Active [address], [place], [address] , [facility] 4 16:28:09 Charcot's arthropathy Active [address], [place], [address] , [facility] 4 10:26:51 Hyperlipidemia Active [address], [facility] [address] , [facility] 4 11:17:15 Problem Notes None recorded. Procedures Surgical History Date Name Laterality Status Provider Name and Address Organization Details Recorded Time 2 Colonoscopy completed SHAYNA ALVARENGA, [facility] 03/11/2023 13:08:41 Imaging Results Imaging Date Name Status LastModified by Organiz ation Details LastModified Time 07/05/2023 US, duplex, venous, lower extremity, unilateral completed Information not available 07/05/2023 17:37:25 07/05/2023 US, duplex, venous, lower extremity, unilateral completed [email or web address] [address] [facility] [place], [address] 07/06/2023 16:00:54 07/05/2023 XR, foot, 3 or more view completed [email or web address] [address] [place], [address] 07/06/2023 16:00:48 07/05/2023 XR, foot, 3 or more view completed [facility] [address], [place], [address], 07/05/2023 17:37:26 07/05/2023 vrad report completed [address] [place], [address] 07/05/2023 19:15:52 07/05/2023 vrad report completed [address] [place], [address] 07/05/2023 19:15:52 07/05/2023 US, duplex, venous, lower extremity, unilateral completed [address] [place], [address], 07/05/2023 17:37:26 07/12/2023 x-ray imaging report completed [address] [place], [address] 07/12/2023 14:55:32 08/01/2023 x-ray imaging report completed [address] [place], [address] 08/02/2023 11:43:53 08/01/2023 x-ray imaging report completed [address] [place], [address] 08/02/2023 11:43:54 08/22/2023 x-ray imaging report completed [address] [place], [address] 08/23/2023 07:22:09 08/22/2023 x-ray imaging report completed [address] [place], [address] 08/23/2023 07:22:09 Procedure Notes None recorded. Medical Equipment None Reported. Allergies Allergen ID Allergen Name Allergen Category Reaction Reaction Severity Criticality Documentation Date Start Date Code Code System Note Provider Name and Address Organization Details Recorded Time 36766 Augmentin medicatio n rash mild low 07/05/2023 70258 2 RxNorm Camila Abdi [facility]. 15:31:33 Medications Name Sig Start Date Stop [...] Not Available Not Available Not Avai lable Eliquis DVT-PE Treatment 30-Day Starter 5 mg (74 tablets) in dose pack 10 mg bid 02/28 completed ER 02/17 Not Available Not Available Not Available Vitals Date Recorded Body height Body mass index (BMI) Body weight Body temperature Oxygen saturation Oxygen saturation in Arterial blood by Pulse oximetry Heart rate Systolic blood pressure Diastolic blood pressure Provider Name and Address Organization Details Last Updated DateTime 4 179.07 cm 36.6 kg/m2 569750. 42 g 97.5 [degF] 98 % 98 % 64 /min 154 mm[Hg] 92 mm[Hg] GONZÁLEZ ZACK, MA [facility] 4 15:53:14 Date Recorded Body height Body mass index (BMI) Body weight Body temperature Oxygen saturation Oxygen saturation in Arterial blood by Pulse oximetry Heart rate Systolic blood pressure Diastolic blood pressure Provider Name and Address Organization Details Last Updated DateTime 4 179.07 cm 37.7 kg/m2 995864. 29 g 97.2 [degF] 94 % 94 % 18 /min 130 mm[Hg] 82 mm[Hg] ENRICO CASTREJON RN [facility] 4 12:18:38 Date Recorded Body height Body mass index (BMI) Body weight Body temperature Oxygen saturation Oxygen saturation in Arterial blood by Pulse oximetry Heart rate Respiratory rate Heart rate Systolic blood pressure Diastolic blood pressure Systolic blood pressure Diastolic blood pressure Provider Name and Address Organization Details Last Updated DateTime 4 179.07 cm 37.5 kg/m2 368509. 98 g 97.7 [degF] 96 % 96 % 80 /min 18 /min 55 /min 191 mm[Hg] 118 mm[Hg] 202 mm[Hg] 165 mm[Hg] Camila Blacketer [facility] 4 15:30:59 Date Recorded Body height Body mass index (BMI) Body weight Body temperature Oxygen saturation Oxygen saturation in Arterial blood by Pulse oximetry Heart rate Respiratory rate Systolic blood pressure Diastolic blood pressure Provider Name and Address Organization Details Last Updated DateTime 4 179.07 cm 37.6 kg/m2 868213. 57 g 97.2 [degF] 95 % 95 % 64 /min 18 /min 132 mm[Hg] 80 mm[Hg] ENRICO CASTREJON RN [facility] 4 09:45:04 Social History Question Answer Notes LastModified by Organizat ion Details LastModified Time Tobacco Smoking Status Current Every Day Smoker SHAYNA ALVARENGA, [facility] 03/12/2023 15:54:45 Would You Say That, In [...] 07/05/2023 What Is Your Current Pack Years? 20-29packyea rs Information not available 03/12/2023 At What Age [...] Recorded Time Tdap 02/28/2018 completed Not Available [facility] 05:37:21 Td(adult) unspecified formulation 11/13/2007 completed Not Available [facility] 01/04/2023 05:37:21 zoster recombinant 06/18/[address] [facility] 01/04/2023 05:37:21 zoster recombinant 08/10/[address] [facility] 01/04/2023 05:37:21 COVID-19, mRNA, LNP-S, PF, 100 mcg/0.5mL dose or 50 mcg/0.25mL dose 05/24/2020 completed Not Available [facility] 01/04/2023 05:37:21 COVID-19, mRNA, LNP-S, PF, 100 mcg/0.5mL dose or 50 mcg/0.25mL dose 06/21/2020 completed Not Available [facility] 01/04/2023 05:37:21 pneumococcal polysaccharide PPV23 06/12/2013 completed Not Available [facility] 2022 05:37:22 influenza, unspecified formulation 11/29/2014 completed Not Available [facility] 01/04/2023 05:37:22 Past Encounters Encounter ID Performer Location Encounter Start Date Encounter Closed Date Diagnosis/Indication Diagnosis SNOMED-CT Code [id number] PONCE HUGHES MD [address] [address] 03/12/2023 15:35:15 03/12/2023 16:50:36 Type 2 diabetes mellitus without complication 331357324 Essential hypertension 20739162 Alcohol abuse 71644150 Diabetic p eripheral neuropathy 171425802 [id number] MIRIAN LIZAMA MD [address] [address] 06/14/2023 11:50:42 06/14/2023 12:56:52 Pain of right ankle joint 632180097556261 06 Type 2 sylwia betes mellitus 14152512 Alcohol abuse 83908293 Nicotine dependence 5629 4008 Essential hypertension 34616694 [id number] [address] [place] [address] 07/05/2023 11:34:50 07/05/2023 15:59:02 Pain in right foot 791006558019686 Pain of right calf [address] 3766622370 3 Hypertensive disorder 38 [address] Charcot's arthropathy 35 0552606 [id number] MIRIAN LIZAMA MD [address] [address] 07/19/2023 09:33:56 07/19/2023 10:29:02 Hyperlipidemia 88755891 Charcot's arthropathy 35 0153705 Anxiety 13902286 Health Concerns Section Related Observation LastModified by Organization Detai ls LastModified Time None Recorded Concern Status LastModified by Organization Details LastModified Time None Recorded Advance Directives Directive None Recorded Payers Encounter Date Sequence Insurance Name Policy Number Policy Hernandez Covered Member ID Hernandez Member ID Guarantor Name 03/12/2023 1 [place] Porsha D Rice [id number] Porsha D Rice 06/14/2023 1 [place] Porsha D Rice [id number] Porsha D Rice 07/05/2023 1 [place] Porsha D Rice [id number] Porsha D Rice 07/19/2023 1 [place] Porsha D Rice [id number] Porsha D Rice Notes Date Note Type Note Provider Name and Address Organization Details Recorded Time 03/12/2023 text/html HPI Notes: Dyana haley here for follow-up for his diabetes, concerned about his peripheral neuropathy which seem to be worsening. 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 This seems affecting his balance as well. He is taking gabapentin 900 mg every morning for it, nothing later the day. He smokes marijuana at night which he finds helpful as well. Still smoking some, diabetes been under control. Looking back he has not had a TSH checked for some time which I suggest he has done. Due for microalbumin as well as he can give us today. Recent knee PCP doubled his atenolol, has not furosemide for his peripheral edema. He is found this helpful as well. PONCE HUGHES MD [address], [place], [address], [facility]. 03/16/2023 12:28:36 06/14/2023 text/html HPI Notes: Dyana haley is a 53-year-old gentleman comes in today for follow-up on his diabetes and blood pressure. He has been seeing a small animal veterinarian who is working on his diet. We discussed his alcohol use and smoking cessation. He has been using some marijuana at night he thinks is helping him to decrease his alcohol intake. He has absolutely no feeling left in his feet he reports that has become a trip hazard for him. He also injured his right ankle last June and it is it does not bend the way the other 1 does and is very painful and swollen all the time he is not quite sure what to do about that. Is made it very difficult for him to try to get on work boots. He has had no fevers or chills nausea vomiting or diarrhea he has not had any chest pain though he states it is difficult walking uphill because the ankle does not bend because he gets short of breath because he is gained 20 pounds. MIRIAN LIZAMA MD [address], [place], [address], [facility]. 06/14/2023 15:34:50 07/05/2023 text/html HPI Notes: Sarai miranda is [...] foot. CHRISTINE HARRISON PA-C [address], [place], [address], [facility]. 07/06/2023 16:28:29 07/19/2023 text/html HPI Notes: Sarai miranda is a 53 year old male who comes in today to discuss his recent appointment to the clinical professor.. He was told he had Charcots foot and that he needed to not bear weight on it. The other foot is also beginning to have the same issue. He is very concerned because he is not able to work. He had just got accepted in a new job with a good pay and had to turn it down because of this. He has DM, is a smoker and uses alcohol all of which are a concern.He has hyperlipidemia as well and needs to get his medication refilled. No recent chest pain, SOB, NVD. He report the celexa has helped him deal with the anxiety this is causing. MIRIAN LIZAMA MD [address], [place], [address], [facility], [facility]. 07/19/2023 11:18:46
--- OUTSIDE RECORDS SUMMARY | 2023-10-03 01:22 | XMS_ITS | Encounter Summary ---
Author Organization [facility] Address [address] [place] [address] Care Team Providers Care Basting Machine Operator Name Role Phone Mirian Malcolm MD Primary Care Provider [phone] Reason for Referral * (Routine/Next Available) - Receiving Office to Obtain Authorization Specialty Diagnoses / Procedures Referred By Contac t Referred To Contact Procedures XR OUTSIDE IMAGES RIGHT LOWER EXTREMITY Imaging, External Referral ID Status Reason Start Date Expiration Date Visits Requested Visits Authorized [id number] Receiving Office to Obtain Authorization 08/13/2023 1 1 Reason for Visit * (Routine/Next Available) - Receiving Office to Obtain Authorization Specialty Diagnoses / Procedures Referred By Contac t Referred To Contact Procedures XR OUTSIDE IMAGES RIGHT LOWER EXTREMITY Imaging, External Referral ID Status Reason Start Date Expiration Date Visits Requested Visits Authorized [id number] Receiving Office to Obtain Authorization 08/13/2023 1 1 Encounter Details Date Type Department Care Team (Latest Contact Info) Description 07/05/2023 - 07/05/2023 23:59 EDT Hospital Encounter [facility] [place] Discharge Disposition: Home [...] Info) Description 10/14/2023 11:00 EDT Office Visit [facility] Program - [address] [place] [address] Philip Mckeon MD [address] [place] [phone] documented as of this encounter Procedures Procedure Name Priority Date/Time Associated Diagnosis Comments XR OUTSIDE IMAGES RIGHT LOWER EXTREMITY Routine 07/05/2023 13:21 EDT documented in this encounter Results * XR OUTSIDE IMAGES RIGHT LOWER EXTREMITY (07/05/2023 13:21 EDT) Narrative 08/13/2023 13:21 EDT This is a non-reportable exam. External Imaging IMG OTHER IMAGING OR DERABLES documented in this encounter Visit Diagnoses Not on filedocumented in this encounter Care Teams Basting Machine Operator Relationship Specialty Start Date End Date Mirian Malcolm MD [address] [place] [address] PCP - General Family Medicine - Primary Care 09/25/20 documented as of this encounter
--- OUTSIDE RECORDS SUMMARY | 2023-10-03 01:22 | XMS_ITS | Clinical Summary ---
Author Organization [facility] Address [address] [place] [address] Care Team Providers Care Gelatin Powder Mixer Name Role Phone Mirian Malcolm MD Primary Care Provider [phone] Encounters Date Type Department Care Team Description 08/01/2023 0:05 EDT - 08/01/2023 23:59 EDT Hospital Encounter [facility] [place] Discharge Disposition: Home or Self Care 08/01/2023 - 08/01/2023 0:04 EDT Hospital Encounter [facility] [place] Discharge Disposition: Home or Self Care 07/12/2023 - 07/12/2023 23:59 EDT Hospital Encounter [facility] [place] Discharge Disposition: Home or Self Care 07/05/2023 - 07/05/2023 23:59 EDT Hospital Encounter [facility] [...] [facility] - [address] [place] [address] Philip Mckeon MD [address] [place] [address] Health Maintenance Due Date Last Done Comments Hepatitis C Screen 1970 Hepatitis B Vaccine (1 of 3 - 19+ 3-dose series) 01/14 COVID-19 Vaccine ( season) 2022 Procedures Procedure Name Priority Date/Time Associated Diagnosis [...] DERABLES from Last 3 Months Care Teams Gelatin Powder Mixer Relationship Specialty Start Date End Date Mirian Malcolm MD [address] [place] [address] PCP - General Family Medicine - Primary Care 09/25/20
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
--- OUTSIDE RECORDS SUMMARY | 2023-10-03 01:22 | XMS_ITS | Encounter Summary ---
Author Organization [facility] Address [address] [place] [address] Care Team Providers Care Qa Engineer Name Role Phone Mirian Malcolm MD Primary Care Provider [phone] Reason for Referral * (Routine/Next Available) - Receiving Office to Obtain Authorization Specialty Diagnoses / Procedures Referred By Contac t Referred To Contact Procedures XR OUTSIDE IMAGES LEFT LOWER EXTREMITY Imaging, External Referral ID Status Reason Start Date Expiration Date Visits Requested Visits Authorized [id number] Receiving Office to Obtain Authorization 08/13/2023 1 1 Reason for Visit * (Routine/Next Available) - Receiving Office to Obtain Authorization Specialty Diagnoses / Procedures Referred By Contac t Referred To Contact Procedures XR OUTSIDE IMAGES LEFT LOWER EXTREMITY Imaging, External Referral ID Status Reason Start Date Expiration Date Visits Requested Visits Authorized [id number] Receiving Office to Obtain Authorization 08/13/2023 1 1 Encounter Details Date Type Department Care Team (Latest Contact Info) Description 07/12/2023 - 07/12/2023 23:59 EDT Hospital Encounter [facility] Secondary Reads [place] Discharge Disposition: [...] Info) Description 10/14/2023 11:00 EDT Office Visit [facility]le Program - [address] [place] [address] Philip Mckeon MD [address] [place] [phone] documented as of this encounter Procedures Procedure Name Priority Date/Time Associated Diagnosis Comments XR OUTSIDE IMAGES LEFT LOWER EXTREMITY Routine 07/12/2023 13:20 EDT documented in this encounter Results * XR OUTSIDE IMAGES LEFT LOWER EXTREMITY (07/12/2023 13:20 EDT) Narrative 08/13/2023 13:20 EDT This is a non-reportable exam. External Imaging IMG OTHER IMAGING OR DERABLES documented in this encounter Visit Diagnoses Not on filedocumented in this encounter Care Teams Qa Engineer Relationship Specialty Start Date End Date Mirian Malcolm MD [address] [place] [address] PCP - General Family Medicine - Primary Care 09/25/20 documented as of this encounter
--- OUTSIDE RECORDS SUMMARY | 2023-10-03 01:22 | XMS_ITS | Encounter Summary ---
Author Organization [facility] Address [address] [place] [address] Care Team Providers Care Custom Grinder Name Role Phone Mirian Malcolm MD Primary Care Provider [phone] Encounter Details Date Type Department Care Team (Late Contact Info) Description 03/02/2022 Lab Requisition [facility] Pathology & Laboratory Medicine - [address] [id number] Outr Resulting Lab, Provider Social History Tobacco Use Types Packs/Day Years Used Date Smoking Tobacco: Never Assessed Sex and Gender Information Value Date Recorded Sex Assigned at Not on file Gender Identity Not on file Sexual Orientation Not on file documented as of this encounter Plan of Treatment Upcoming Encounters Date Type Department Care Team (Late Contact Info) Description 10/14/2023 11:00 EDT Office Visit [facility] Foot & Ankle Program - [address] [address] Philip Mckeon MD [address] [place] [phone] documented as of this encounter Procedures Procedure Name Priority Date/Time Associated Diagnosis Comments ZZCOVID-19 TEST [facility] PCR Today 03/01/2022 8:32 EST COVID-19 TESTING Routine 03/01/2022 8:32 EST documented in this encounter Results * COVID-19 TEST [facility] PCR (03/01/2022 8:32 EST) Swab 03/01/2022 8:32 EST 03/02/2022 17:50 EST Provider Outr Resulting Lab MICROBIOLOGY - GENERAL ORDERABLES Performing Organization Address City/[facility]/ZIP Co de Phone Number [facility] [address] [place] [address] * COVID-19 TESTING (03/01/2022 8:32 EST) COVID-19 rt-PCR Result Negative Negative 03/03/2022 11:44 EST [facility] Comment: This test has not been FDA cleared or approved. This test has been authorized by FDA under an EUA for use by authorized laboratories. This test has been authorized only for detection of nucleic acid from 2019-nCoV, not for any other viruses or pathogens. This test is only authorized for the duration of the declaration that circumstances exist justifying the authorization of emergency use of in vitro diagnostic tests for detection and/or diagnosis of 2019-nCoV under section 564(b)(1) of Act, 21 U.S.C ?? 360bbb-3(b) (1), unless the authorization is terminated or revoked sooner. Negative results do not preclude 2019-nCoV infection and should not be used as the sole basis for treatment or other patient management decisions. Negative results must be combined with clinical observations, patient history, and epidemiological information. Testing was performed using the shonda SARS-CoV-2 assay ([employer] on the Shonda 6800 System Performing Lab Shonda 6800 [facility] 03/03/2022 11:44 EST [facility] Swab 03/01/2022 8:32 EST 03/02/2022 17:50 EST Provider Outr Resulting Lab MICROBIOLOGY - GENERAL ORDERABLES [facility] [address] [place] [address] documented in this encounter Visit Diagnoses Not on filedocumented in this encounter Care Teams Custom Grinder Relationship Specialty Start Date End Date Mirian Malcolm MD [address] [place] [phone] PCP - General Family Medicine - Primary Care 09/25/20 documented as of this encounter
--- OUTSIDE RECORDS SUMMARY | 2023-10-03 01:23 | XMS_ITS | Encounter Summary ---
Author Organization [facility] Address [facility] [place] [address] Care Team Providers Care Circular Knife Cutter Machine Name Role Phone Mirian Malcolm MD Primary Care Provider [phone] Reason for Visit * Reason Onset Date Comments Bumped Appointment 02/02/2019 Encounter Details Date Type Department Care Team (Late st Contact Info) Description 02/02/2019 Telephone [place] [phone] Karen Alfred PA [facility] [place] [address] Bumped Appointment Social History Tobacco Use Types Packs/Day Years Used Date Smoking Tobacco: Every Day Cigarettes 1 25 Smokeless Tobacco: Never Alcohol Use Standard Drinks/Week Comments Yes 0 (1 standard drink = 0.6 oz pur e alcohol) 3-4 per night Sex and Gender Information Value Date Recorded Sex Assigned at Not on file Gender Identity Not on file Sexual Orientation Not on file documented as of this encounter Miscellaneous Notes * Telephone Encounter - Mirian Solo - 02/02/2019 11:07 AM EST Patient rescheduled * Telephone Encounter - Mirian Solo - 02/02/2019 7:42 AM EST LM #1 to call to reschedule bumped appointment with Karen Alfred. documented in this encounter Plan of Treatment Upcoming Encounters Date Type Department Care Team (Late st Contact Info) Description 10/03/2023 2:00 PM EDT Office [place] [address] Carlos Veloz MD [facility] [place] [address] documented as of this encounter Visit Diagnoses Not on filedocumented in this encounter Care Teams Circular Knife Cutter Machine Relationship Specialty Start Date End Date Mirian Malcolm MD [address] [place] [address] PCP - General Family Medicine 08/13/18 documented as of this encounter
--- OUTSIDE RECORDS SUMMARY | 2023-10-03 01:23 | XMS_ITS | Encounter Summary ---
Author Organization [facility] Address [facility] [place] [address] Care Team Providers Care Cut Order Hand Name Role Phone Mirian Malcolm MD Primary Care Provider [phone] Encounter Details Date Type Department Care Team (Late st Contact Info) Description 04/10/2022 Refill Dermatology at [address] [phone] Erin Robert, RN Social History Tobacco Use Types Packs/Day Years [...] 2:00 PM EDT Office [place] [address] Carlos Veloz MD [facility] [address] [place]THOPAED[place] [address] documented as of this encounter Visit Diagnoses Not on filedocumented in this encounter Care Teams Cut Order Hand Relationship Specialty Start Date End Date Mirian Malcolm MD [address] [place] [address] PCP - General Family Medicine 08/13/18 documented as of this encounter
--- OUTSIDE RECORDS SUMMARY | 2023-10-03 01:23 | XMS_ITS | Encounter Summary ---
Author Organization [facility] Address [facility] [place] [address] Care Team Providers Care Matting Press Tender Name Role Phone Mirian Malcolm MD Primary Care Provider [phone] Reason for Visit * Reason Onset Date Comments Letter for School/Work 12/26/2018 Encounter Details Date Type Department Care Team (Late st Contact Info) Description 12/26/2018 Tele[place] [phone] Karen Alfred PA [facility] [place] [address] Letter for School/Work Social History Tobacco Use Types Packs/Day Years [...] * Telephone Encounter - Mirian Solo - 01/06/2019 7:46 AM EST Letter created and faxed. * Telephone Encounter - Gianna Sandoval I - 12/26/2018 2:48 PM EDT Name: Porsha Park Mailing address: [address] [place] [phone] : 1970 Diagnosis: Left IT fracture with CMN Date of Injury: 08.12.18 Date of Surgery:08.13.18 Is this Worker's Comp? NO If YES, DOI: What are you returning to/ out of (work, sports, school, etc.)? Out of work If work: what is your occupation? [employer] What do you want your start date to be? 08.13.18 What restrictions do you need? Out of work until further notice can determined February 02, 2019 If no, mailed or faxed? faxed To what address/fax#? [phone] To whose attention? Soila CONTACT NUMBER/NAME IF THIRD DEMOCRAT REQUEST: documented in this encounter Plan of Treatment Upcoming Encounters Date Type Department Care Team (Late st Contact Info) Description 10/03/2023 2:00 PM EDT Office [place] [address] Carlos Veloz MD [facility] [place] [address] documented as of this encounter Visit Diagnoses Not on filedocumented in this encounter Care Teams Matting Press Tender Relationship Specialty Start Date End Date Mirian Malcolm MD [address] [place] [address] PCP - General Family Medicine 08/13/18 documented as of this encounter
--- OUTSIDE RECORDS SUMMARY | 2023-10-03 01:23 | XMS_ITS | Encounter Summary ---
Author Organization [facility] [place] [address] Care Team Providers Care Information Technology Coordinator Name Role Phone Mirian Malcolm MD Primary Care Provider [phone] Reason for Visit * Reason Comments Back Pain * Consultation (Routine) - Closed Specialty Diagnoses / Procedures Referred By Contac t Referred To Contact [facility] Diagnoses Chronic left SI joint pain Spine - SI joint pain/ no imaging review w/ anatoliy Karen Alfred PA [facility] [place] [address] [facility] [place] [address] Referral ID Status Reason Start Date Expiration Date V isits Requested Visits Authorized [id number] Closed Consult, Test & Treat 10/06/2018 10/06/2019 1 1 Encounter Details Date Type Department Care Team (Latest Contact Info) Description 10/24/2018 10:20 AM EDT Office Visit [place] [phone] Anatoliy Lutz PA [facility] [place] [address] Spondylolysis of lumbosacral region; Spondylolisthesis at L5-S1 level Social History Tobacco Use Types Packs/Day Years [...] on file documented as of this encounter Last Filed Vital Signs Vital Sign Reading Time Taken Comments Blood Pressure 177/104 10/24/2018 10:04 AM EDT Pulse 54 10/24/2018 10:04 AM EDT Temperature - - Respiratory Rate - - Oxygen Saturation - - Inhaled Oxygen Concentration - - Weight 113.4 kg (250 lb) 10/24/2018 10:04 AM EDT Height 182.9 cm (6') 10/24/2018 10:04 AM EDT Body Mass Index 33.91 10/24/2018 10:04 AM EDT documented in this encounter Progress Notes * Anatoliy Lutz PA - 10/24/2018 10:20 AM EDT Porsha Park is a 48-year-old gentleman I am seen today for chief complaint of midline low back pain. He tells me he has had this problem for over 4 or 5 years by now. He tells me that more recently he had a problem when he fractured his left femur. This was treated with ORIF on July 2018 and he tells me that he was actually quite pain-free in his low back but it did get much worse about 5 weeks afterwards. He tells me the pain is over the bilateral lumbosacral regions. It does not radiate more distally into his lower extremities. He does still get some pain over his left hip in relation tothis intertrochanteric fracture. He tells me that he has been needing to see a chiropractor every 1to 3 months by now and that does help him. He tells me the pain is been improving as of late. He has not had prior spine surgery or spine injections. He does tell me that as a young man he played football and even injured his ACL after that on the left and required surgery for it and needed about 9 months to recover. 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 He continues to smoke 1 pack/day. Objective: On examination today this is a pleasant overweight 48-year-old gentleman. He stands without evidentspinal deformity but does have a mildly palpable step-off over the low lumbar region. He has some increasing back pain with extension to about 15 degrees but is perfectly comfortable with forward flexion to over 60 degrees. His reflexes are symmetric +2 both knees and both ankles. His straight leg raise is negative on both sides. His motor exam shows full strength of the lower extremities. His sensory exam is intact light touch. Imaging: I went over his CT scan from July 2018 visualizing the thoracolumbar spine with coronal and sagittal and axial views. Imaging is notable for findings of an L5-S1 isthmic spondylolisthesis, with evidence of bilateral pars defects. Otherwise the remaining lumbar vertebral segments show preserved disc and vertebral body heights throughout without evidence of acute injury or fracture. Assessment/plan: Porsha Park 48-year-old gentleman I am seen today for chief complaint of several years of chronic low back pain, currently with improving symptoms. Is in the context of an underlying isthmic spondylolisthesis L5-S1 with confirmed bilateral pars defects. I advised him that there are spondylolysis and the listhesis would likely have been present around his teenage/young adult years as it does not generally result from a traumatic injury as the one he had sustained recently. Fortunately he is neurologically intact with this and even the back pain is not constant. Given his improving pattern of symptoms I recommend continuing physical therapy and complex care nurse as tolerated. I did advise him that if his back pain becomes more limiting that he can connect back with our office and we can certainly discuss pars defect injections at that point towards L5-S1 as an interventional pain management strategy. For now he is doing well so we will follow-up on an as-needed basis. documented in this encounter Plan of Treatment Upcoming Encounters Date Type Department Care Team (Late st Contact Info) Description 10/03/2023 2:00 PM EDT Office [place] [address] Carlos Veloz MD [facility] [place] [address] Scheduled Referrals Name Type Priority Associated Diagnoses Orde r Schedule Referral to Spine Center Outpatient Referral Routine Chronic left SI joint pain Ordered: 10/06/2018 documented as of this encounter Visit Diagnoses Diagnosis Spondylolysis of lumbosacral region Acquired spondylolisthesis Spondylolisthesis at L5-S1 level Congenital spondylolisthesis documented in this encounter Care Teams Information Technology Coordinator Relationship Specialty Start Date End Date Mirian Malcolm MD [address] [place] [address] PCP - General Family Medicine 08/13/18 documented as of this encounter
--- OUTSIDE RECORDS SUMMARY | 2023-10-03 01:23 | XMS_ITS | Encounter Summary ---
Author Organization [facility] Address [facility] [place] [address] Care Team Providers Care Rating Examiner Name Role Phone Mirian Malcolm MD Primary Care Provider [phone] Encounter Details Date Type Department Care Team (Latest Contact Info) Description 08/21/2018 Orders [place] [address] Karen Alfred PA [facility] [address] [place] [address] Closed displaced intertrochanteric fracture of right femur, initial encounter Social History Tobacco Use Types Packs/Day Years Used Date Smoking Tobacco: Every Day Cigarettes 1 25 Smokeless Tobacco: Never Alcohol Use Standard Drinks/Week Comments Yes 25 (1 standard drink = 0.6 oz pu re alcohol) Sex and Gender Information Value Date Recorded Sex Assigned at Not on file Gender Identity Not on file Sexual Orientation Not on file documented as of this encounter Plan of Treatment Upcoming Encounters Date Type Department Care Team (Late st Contact Info) Description 10/03/2023 2:00 PM EDT Office [place] [address] Carlos Veloz MD [facility] [address] [place] [address] documented as of this encounter Results * XR Femur 2 views Left (Generic) (08/27/2018 2:15 PM EDT) Anatomical Region Laterality Modality Thigh Left Digital Radiogra phy Impressions 08/27/2018 2:46 PM EDT Continued healing of left intertrochanteric fracture without hardware complications. Thank you for letting us participate in the care of this patient. For questions regarding this report, please contact the number below. ? Narrative 08/27/2018 2:46 PM EDT EXAMINATION: XR FEMUR 2 VIEWS LEFT (GENERIC) CLINICAL HISTORY: s/p fx, , ??entered by ordering service TECHNIQUE: Left femur, ??2 views COMPARISON: July 2018 FINDINGS: Bones: Left femur-IM nail fixation of a left intertrochanteric fracture. The fracture line is partially obliterated. Unchanged fixation hardware. Joints: Left hip joint-normal alignment. Left knee joint-unchanged osteoarthropathy with osteophytes, chondrocalcinosis, subchondral sclerosis and joint space narrowing. Soft tissues Incidentally noted are amorphous calcifications surrounding the anterior-inferior iliac spine at the rectus femoris insertion. Finding suggests hydroxyapatite deposition. Procedure Note Deidre Larson MD - 08/27/2018 EXAMINATION: XR FEMUR 2 VIEWS LEFT (GENERIC) CLINICAL HISTORY: s/p fx, , entered by ordering service TECHNIQUE: Left femur, 2 views COMPARISON: July 2018 FINDINGS: Bones: Left femur-IM nail fixation of a left intertrochanteric fracture. Thefracture line is partially obliterated. Unchanged fixation hardware. Joints: Left hip joint-normal alignment. Left knee joint-unchanged osteoarthropathy with osteophytes,chondrocalcinosis, subchondral sclerosis and joint space narrowing. Soft tissues Incidentally noted are amorphous calcifications surrounding the anterior-inferior iliac spine at the rectus femoris insertion. Findingsuggests hydroxyapatite deposition. IMPRESSION Continued healing of left intertrochanteric fracture without hardware complications. Thank you for letting us participate in the care of this patient. Forquestions regarding this report, please contact the number below. Carlos Veloz MD IMG DX ORDERABLES documented in this encounter Visit Diagnoses Diagnosis Closed displaced intertrochanteric fracture of right femur, initial encounter Closed displaced intertrochanteric fracture of right femur, initial encounter documented in this encounter Care Teams Rating Examiner Relationship Specialty Start Date End Date Mirian Malcolm MD [address] [place] [address] PCP - General Family Medicine 08/13/18 documented as of this encounter
--- OUTSIDE RECORDS SUMMARY | 2023-10-03 01:23 | XMS_ITS | Encounter Summary ---
Author Organization [facility] Address [facility] [place] [address] Care Team Providers Care Client Service Representative Name Role Phone Mirian Malcolm MD Primary Care Provider Reason for Referral * Physical Therapy (Routine) - Specialty Diagnoses / Procedures Referred By Contblake t Referred To Contact Diagnoses Closed displaced intertrochanteric fracture of right femur, initial encounter Karen Alfred PA [facility] [place] [address] Referral ID Status Reason Start Date Expiration Date V isits Requested Visits Authorized [id number] Evaluate and Treat 02/27/2019 08/26/2019 1 1 Reason for Visit * Reason Comments Follow-up Left IT fx s/p CMN (Magdiel) Encounter Details Date Type Department Care Team (Latest Contact Info) Description 02/27/2019 10:00 AM EST [place] [address] Karen Alfred PA [facility] [place] [address] Closed displaced intertrochanteric fracture of right femur, [...] Sign Reading Time Taken Comments Blood Pressure 176/100 02/27/2019 9:55 AM EST Pulse 59 02/27/2019 9:55 AM EST Temperature - - Respiratory Rate - - Oxygen Saturation - - Inhaled Oxygen Concentration - - Weight 113.4 kg (250 lb) 02/27/2019 9:55 AM EST verbal Height 182.9 cm (6') 02/27/2019 9:55 AM EST verb al Body Mass Index 33.91 02/27/2019 9:55 AM EST documented in this encounter Progress Notes * Karen Alfred PA - 02/27/2019 10:00 AM EST PATIENT NAME: Porsha Park AGE: 49 y.o. MR#: [id number] DATE OF VISIT: 02/27/2019 CHIEF COMPLAINT: 7 month FU Left IT fracture with CMN DOS 08/13/18 (Magdiel) HISTORY OF PRESENT ILLNESS: Mr. Park is a 49 y.o. male who comes into clinic today for evaluation of the left femur. The PT was last in to see myself on 12/08/2018 . Since this time he has been working three times per week on PT. He continues to have some buttock pain on the left. He does feel thathis hip is very comfortable. In mid December he was working in PT on increasing his knee flexion. He was on all fours pushing his buttocks down to his heels. He had no significant pain during this time, however the next day his right knee became very painful and swollen. He is able to ambulate comfortably though does have somepain in the crease of his knee. 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 His work will not be able to accommodate his schedule being modified. Past medical history: Patient Active Problem List Diagnosis Date Noted ??? Spondylolysis of lumbosacral region 10/24/2018 ??? Spondylolisthesis at L5-S1 level 10/24/2018 ??? Postoperative anemia due to acute blood loss 08/14/2018 ??? L IT fx s/p CMN 08/13/18 (Magdiel) 08/13/2018 ??? Swelling of thigh 04/19/2016 ??? Left shoulder pain 06/30/2012 ??? Neuropathy 06/30/2012 ??? Cervical radiculopathy 06/30/2012 ??? Elbow pain, right 12/21/2010 ??? 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 citalopram (CELEXA) 20 mg Tablet ??? lisinopril-hydrochlorothiazide (PRINZIDE;ZESTORETIC) 20-25 mg Tablet ??? atorvastatin (LIPITOR) 10 mg Tablet ??? gabapentin (NEURONTIN) 300 mg Capsule ??? ascorbic acid (VITAMIN C) 500 mg tablet ??? atenolol (TENORMIN) 100 mg tablet ??? multivitamin with minerals (THERA-M) 9-0.4 mg tablet Allergies: No Known Allergies Social history: Social History Tobacco Use ??? Smoking status: Current Every Day Smoker Packs/day: 1.00 Years: 25.00 Pack years: 25.00 Types: Cigarettes ??? Smokeless tobacco: Never Used Substance Use Topics ??? Alcohol use: Yes Comment: 3-4 per night Review of systems: No chest pain or shortness of breath No fevers, night sweats or chills Vital signs: Blood pressure (!) 176/100, pulse 59, height 182.9 cm (6'), weight 113.4 kg (250 lb). Physical exam: Mr. Park is a 49 y.o. male who is alert and oriented. He is in no acute discomfort and is resting comfortably in the exam room. TTP over the greater troch as well as down the IT band towards the knee. FF of the hip to 120 degrees Abduction to 25 IR 5 degrees ER 30 Left knee Knee extension to 0 degrees Flexion to 120 Right knee Knee extension to 0 degrees Flexion to 120 - valgus, varus, anterior drawer. PT and DP pulses obtainable by doppler Calf in supple and non tender. Assessment and plan:: 49 y.o. year-old male now roughly 7 months out post Left IT fracture with CMN DOS 08/13/18 (Magdiel), trochanteric bursitis on the left as well as well as very weak quads and abductor muscles. We had a long discussion regarding the nature of Porsha Park's pain. . Clinically Porsha Ellis good left hip ROM as well as right knee ROM. His right knee is stable to exam. We discussed theincidence of acute on chronic arthritis as well as the possibility of bakers cyst. We would need toget WB XR images to review this. I have written a PT referral for [employer] to help him prepare for returning to work. This plan was discussed with the patient and they are in agreement. All of the patient's questions were answered. The patient understand to contact us if they have any other questions or concerns. FU: LETICIA Alfred PA-C The above dictation was made with voice recogonition software documented in this encounter Plan of Treatment Upcoming Encounters Date Type Department Care Team (Late st Contact Info) Description 10/03/2023 2:00 PM EDT [place] [address] Carlos Veloz MD [facility] [place] [address] Scheduled Referrals Name Type Priority Associated Diagnoses Orde r Schedule Referral to Physical Therapy Outpatient Referral Routine Closed displaced intertrochanteric fracture of right femur, initial encounter Ordered: 02/27/2019 documented as of this encounter Visit Diagnoses Diagnosis Closed displaced intertrochanteric fracture of right femur, initial encounter documented in this encounter Care Teams Client Service Representative Relationship Specialty Start Date End Date Mirian Malcolm MD [address] [place] [address] PCP - General Family Medicine 08/13/18 documented as of this encounter
--- OUTSIDE RECORDS SUMMARY | 2023-10-03 01:23 | XMS_ITS | Encounter Summary ---
[place] [address] Care Team Providers Care Portable Trackman Name Role Phone Mirian Malcolm MD Primary Care Provider [phone] Reason for Referral * Consultation (Routine) - Authorized Specialty Diagnoses / Procedures Referred By Giles girard Referred To Contact Orthopaedics Diagnoses Charcot's arthropathy Mirian Malcolm MD [address] [place] [address] [facility] [address] [place] [phone] Referral ID Status Reason Start Date Expiration Date Visits Requested Visits Authorized [id number] Authorized Consult, Test & Treat PCP Updated and/or Approved 07/30/2023 07/29/2024 6 6 Encounter Details Date Type Department Care Team (Latest Contact Info) Description 07/30/2023 Transcribe Orders eDH Incoming Referrals [phone] Mirian Malcolm MD [address] [place] [address] Charcot's arthropathy Social History Tobacco Use Types Packs/Day Years [...] 2:00 PM EDT Office Visit [place] [address] Carlos Veloz MD [facility] DR [place] [address] Scheduled Referrals Name Type Priority Associated Diagnoses Orde r Schedule Referral to Orthopaedics Outpatient Referral Urgent Charcot's arthropathy Ordered: 07/30/2023 documented as of this encounter Visit Diagnoses Diagnosis Charcot's arthropathy Tabes dorsalis documented in this encounter Care Teams Portable Trackman Relationship Specialty Start Date End Date Mirian Malcolm MD [address] [place] [id number] PCP - General Family Medicine 08/13/18 documented as of this encounter
--- OUTSIDE RECORDS SUMMARY | 2023-10-03 01:23 | XMS_ITS | Encounter Summary ---
Author Organization [facility] Address [facility] [place] [address] Care Team Providers Care Batter Mixer Helper Name Role Phone Mirian Malcolm MD Primary Care Provider [phone] Reason for Referral * Physical Therapy (Routine) - Specialty Diagnoses / Procedures Referred By Contac t Referred To Contact Diagnoses Chronic left SI joint pain Closed displaced intertrochanteric fracture of right femur, initial encounter Trochanteric bursitis of left hip Karen Alfred PA [facility] [place] [address] Referral ID Status Reason Start Date Expiration Date V isits Requested Visits Authorized [id number] Evaluate and Treat 10/06/2018 04/04/2019 1 1 * Consultation (Routine) - Closed Specialty Diagnoses / Procedures Referred By Contac t Referred To Contact [facility] Diagnoses Chronic left SI joint pain Spine - SI joint pain/ no imaging review w/ angel Karen Alfred PA [facility] [place] [address] [facility] [place] [address] Referral ID Status Reason Start Date Expiration Date V isits Requested Visits Authorized [id number] Closed Consult, Test & Treat 10/06/2018 10/06/2019 1 1 Reason for Visit * Reason Comments Follow Up Fracture XR-L IT fx s/p CMN (Magdiel) DOI 07/1918 Encounter Details Date Type Department Care Team (Latest Contact Info) Description 10/06/2018 3:30 PM EDT Office [place] [address] Karen Alfred PA [facility] [place] [address] Chronic left SI joint pain; Closed displaced intertrochanteric fracture of right femur, initial encounter; Trochanteric bursitis of left hip Social History Tobacco Use Types Packs/Day Years [...] Sign Reading Time Taken Comments Blood Pressure 172/110 10/06/2018 3:20 PM EDT pt states did not take BP meds today Pulse 74 10/06/2018 3:20 PM EDT Temperature - - Respiratory Rate - - Oxygen Saturation - - Inhaled Oxygen Concentration - - Weight 111.1 kg (245 lb) 10/06/2018 3:2 0 PM EDT verbal Height 180.3 cm (5' 11) 10/06/2018 3:2 0 PM EDT verbal Body Mass Index 34.17 10/06/2018 3:20 PM EDT documented in this encounter Progress Notes * Karen Alfred PA - 10/06/2018 3:30 PM EDT PATIENT NAME: Porsha Park AGE: 48 y.o. MR#: [id number] DATE OF VISIT: 10/06/2018 CHIEF COMPLAINT: 8 week FU Left IT fracture with CMN DOS 08/13/18 (Magdiel) HISTORY OF PRESENT ILLNESS: Mr. Park is a 48 y.o. male who comes into clinic today for evaluation of the left femur. The PT was last in to see myself on 08/27/2018 . Since this visit he has been struggling with back pain. He has had issues with this in the past however over the past three weeks he has needed to see the Chiropractor 8 times. The pain was overshadowing the pain from the femur. He stopped for a short time attending PT. He has gone back, however he did regress a bit in terms of his abilities. Past medical history: Patient Active Problem List Diagnosis Date Noted ??? Postoperative anemia due to acute blood [...] or chills Vital signs: Blood pressure (!) 172/110, pulse 74, height 180.3 cm (5' 11), weight 111.1 kg (245 lb). Physical exam: Mr. Park is a 48 y.o. male who is alert and oriented. He is in no acute discomfort and is resting comfortably in the exam room. TTP over the greater troch as well as down the IT band towards the knee. FF of the hip to 100 degrees Abduction to 25 IR 5 degrees ER 30 Knee extension to 0 degrees Flexion to 120 PT/DP pulses 2+. Superficial peroneal, deep peroneal, sural, saphenous, and tibial nerves intact totouch. Imaging studies: XR images of the left femur were obtained shooing good alignment of the IT fracture with CMN. No change in alignment since previous imaging. Interval sclerosis since previous imaging. Assessment and plan:: 48 y.o. year-old male now roughly 2 months out post Left IT fracture with CMN DOS 08/13/18 (Magdiel), trochanteric bursitis on the left as well as some SI joint pain We had a long discussion regarding the nature of Porsha Park's chief complaint. We reviewed the imaging together which is described above. Clinically Porsha Park has decent ROM. He is tender over the trochanteric bursa. We discussed treatment for this with PT. He is also tender to palpation over both the right and left SI joints though denies pain moving down past the knees. We discussed seeing spine for evaluation. This plan was discussed with the patient and they are in agreement. All of the patient's questions were answered. The patient understand to contact us if they have any other questions or concerns. FU: 2 months Karen Alfred PA-C The above dictation was made with voice recogonition software documented in this encounter Plan of Treatment Upcoming Encounters Date Type Department Care Team (Late st Contact Info) Description 10/03/2023 2:00 PM EDT Office [place] [address] Carlos Veloz MD [facility] [address] [place] [address] Scheduled Referrals Name Type Priority Associated Diagnoses Orde r Schedule Referral to Spine Center Outpatient Referral Routine Chronic left SI joint pain Ordered: 10/06/2018 Referral to Physical Therapy Outpatient Referral Routine Chronic left SI joint pain Closed displaced intertrochanteric fracture of right femur, initial encounter Trochanteric bursitis of left hip Ordered: 10/06/2018 documented as of this encounter Visit Diagnoses Diagnosis Chronic left SI joint pain Disorders of sacrum Closed displaced intertrochanteric fracture of right femur, initial encounter Trochanteric bursitis of left hip Enthesopathy of hip region documented in this encounter Care Teams Batter Mixer Helper Relationship Specialty Start Date End Date Mirian Malcolm MD [address] [place] [address] PCP - General Family Medicine 08/13/18 documented as of this encounter
--- OUTSIDE RECORDS SUMMARY | 2023-10-03 01:23 | XMS_ITS | Encounter Summary ---
Author Organization [facility] [place] [address] Care Team Providers Care Photographer Aerial Name Role Phone Mirian Malcolm MD Primary Care Provider [phone] Encounter Details Date Type Department Care Team (Late st Contact Info) Description 07/05/2023 12:05 AM EDT Ancillary Procedure [place] [phone] Mirian Malcolm MD [address] [place] [id number] Social History Tobacco Use Types Packs/Day Years [...] 2:00 PM EDT Office [place] [address] Carlos Veloz MD [facility] [place] [address] documented as of this encounter Procedures Procedure Name Priority Date/Time Associated Diagnosis Comments FILM LIBRARY STORAGE ONLY DX FOOT Routine 07/05/2023 12:05 AM EDT documented in this encounter Results * Film Library- Storage Only DX Foot (07/05/2023 12:05 AM EDT) Narrative DAGO MATHEW - 07/31/2023 1:10 PM EDT This exam is auto-finalizing. It's purpose is for storage only. Mirian Malcolm MD IMG FILM LIBRARY ORD ERABLES [place], [place] documented in this encounter Visit Diagnoses Not on filedocumented in this encounter Care Teams Photographer Aerial Relationship Specialty Start Date End Date Mirian Malcolm MD [address] [place] [address] PCP - General Family Medicine 08/13/18 documented as of this encounter
--- OUTSIDE RECORDS SUMMARY | 2023-10-03 01:23 | XMS_ITS | Encounter Summary ---
Author Organization [facility] Address [facility] [place] [address] Care Team Providers Care Smasher Hand Name Role Phone Mirian Malcolm MD Primary Care Provider [phone] Encounter Details Date Type Department Care Team (Latest Contact Info) Description 08/27/2018 1:56 PM EDT - 08/27/2018 11:59 PM EDT Hospital Encounter XRay at [address] [place] [address] Carlos Veloz MD [facility] [place] [address] Closed displaced intertrochanteric fracture of right femur, initial encounter Discharge Disposition: Home Social History Tobacco Use Types Packs/Day Years [...] on file documented as of this encounter Medications at Time of Discharge Medication Sig Dispensed Refills Start Date End Date citalopram (CELEXA) 20 mg Tablet 08/11/2018 lisinopril-hydrochlorot hiazide (PRINZIDE;ZESTORETIC) 20-25 mg Tablet take 1 tablet by mouth once daily 0 03/07/2018 atorvastatin (LIPITOR) 10 mg Tablet Take 10 mg by mouth daily. 0 02/03/2018 gabapentin (NEURONTIN) 300 mg Capsule Take 900 mg by mouth daily. ascorbic acid (VITAMIN C) 500 mg tablet Take 500 mg by mouth daily. atenolol (TENORMIN) 100 mg tablet Take 100 mg by mouth daily. multivitamin with minerals (THERA-M) 9-0.4 mg tablet Take 1 tablet by mouth daily. cephalexin (KEFLEX) 500 mg Tablet Take 1 tablet by mouth 4 times daily for 10 days. 40 tablet 08/18/2018 08/28/2018 enoxaparin (LOVENOX) 40 mg/0.4 mL Syringe Inject 0.4 mLs subcutaneously daily for 28 days. 28 Syringe 08/15/2018 09/12/2018 lisinopril (PRINIVIL;ZESTRIL) 20 mg Tablet 07/17/2018 10/06/2018 oxyCODONE (ROXICODONE) 5 mg TabletIndications:Close d displaced intertrochanteric fracture of left femur, initial encounter Take 1 tablet by mouth every 4 hours as needed for Pain. 40 tablet 08/15/2018 10/06/2018 polyethylene glycol (MIRALAX) 17 gram Powder in PacketIndications:Close d displaced intertrochanteric fracture of left femur, initial encounter Take 17 g by mouth 2 times daily. 14 each 08/15/2018 10/06/2018 documented as of this encounter Plan of Treatment Upcoming Encounters Date Type Department Care Team (Late st Contact Info) Description 10/03/2023 2:00 PM EDT [place] [address] Carlos Veloz MD [facility] [place] [address] documented as of this encounter Procedures Procedure Name Priority Date/Time Associated Diagnosis Comments XR FEMUR 2 VIEWS LEFT Routine 08/27/2018 2:15 PM EDT Closed displaced intertrochanteric fracture of right femur, initial encounter documented in this encounter Results * XR Femur 2 [...] encounter documented in this encounter Care Teams Smasher Hand Relationship Specialty Start Date End Date Mirian Malcolm MD [address] [place] [address] PCP - General Family Medicine 08/13/18 documented as of this encounter
--- OUTSIDE RECORDS SUMMARY | 2023-10-03 01:23 | XMS_ITS | Encounter Summary ---
Author Organization [facility] [place] [address] Care Team Providers Care Job Lithographer Name Role Phone Mirian Malcolm MD Primary Care Provider [phone] Encounter Details Date Type Department Care Team (Late st Contact Info) Description 08/18/2018 Telephone [place] [address] Irving Lopez, RN Social History Tobacco Use Types Packs/Day [...] encounter Miscellaneous Notes * Telephone Encounter - Irving Lopez, RN - 08/18/2018 10:32 AM EDT Patient called and expressing purulent type drainage at his incision site since Saturday. Frequent dressing changes, possible redness and warmth, but cannot reassure me. Questionable fever and chills. Recent IMN femur on 08/13/2018. Made for nurse visit and I will see them, when the patient gets here. Irving documented in this encounter Plan of Treatment Upcoming Encounters Date Type Department Care Team (Late st Contact Info) Description 10/03/2023 2:00 PM EDT Office [place] [phone] Carlos Veloz MD [facility] DR [place] [address] documented as of this encounter Visit Diagnoses Not on filedocumented in this encounter Care Teams Job Lithographer Relationship Specialty Start Date End Date Mirian Malcolm MD [address] [place] [address] PCP - General Family Medicine 08/13/18 documented as of this encounter
--- OUTSIDE RECORDS SUMMARY | 2023-10-03 01:23 | XMS_ITS | Encounter Summary ---
Author Organization [facility] [address] Care Team Providers Care Director Distribution Name Role Phone Mirian Malcolm MD Primary Care Provider [phone] Encounter Details Date Type Department Care Team (Late Contact Info) Description 07/05/2023 Ancillary Procedure [place] [address] Carlos Veloz MD [facility] [place] [address] Social History Tobacco Use Types Packs/Day Years [...] 2:00 PM EDT Office [place] [address] Carlos Veloz MD [facility] [place] [address] documented as of this encounter Procedures Procedure Name Priority Date/Time Associated Diagnosis Comments FILM LIBRARY STORAGE ONLY ULTRASOUND STUDY Routine 07/05/2023 12:00 AM EDT documented in this encounter Results * Film Library- Storage Only Ultrasound Study (07/05/2023 12:00 AM EDT) Narrative DAGO MATHEW - 07/31/2023 1:09 PM EDT This exam is auto-finalizing. It's purpose is for storage only. Carlos Veloz MD IMG FILM LIBRARY ORD ERABLES [place], [place] documented in this encounter Visit Diagnoses Not on filedocumented in this encounter Care Teams Director Distribution Relationship Specialty Start Date End Date Mirian Malcolm MD [address] [place] [address] PCP - General Family Medicine 08/13/18 documented as of this encounter
--- OUTSIDE RECORDS SUMMARY | 2023-10-03 01:23 | XMS_ITS | Encounter Summary ---
Author Organization [facility] [place] [address] Care Team Providers Care Food Safety Scientist Name Role Phone Mirian Malcolm MD Primary Care Provider [phone] Encounter Details Date Type Department Care Team (Late st Contact Info) Description 08/18/2018 Notes [place] [phone] Karen Alfred PA [facility] [place] [address] Social History Tobacco Use Types Packs/Day Years Used Date Smoking Tobacco: Every Day Cigarettes 1 25 Smokeless Tobacco: Never Alcohol Use Standard Drinks/Week Comments Yes 25 (1 standard drink = 0.6 oz pu re alcohol) Sex and Gender Information Value Date Recorded Sex Assigned at Not on file Gender Identity Not on file Sexual Orientation Not on file documented as of this encounter Progress Notes * Karen Alfred PA - 08/18/2018 12:24 PM EDT Porsha comes in to clinic today for a nurse visit. RN. Villatoro documented in this encounter Plan of Treatment Upcoming Encounters Date Type Department Care Team (Late st Contact Info) Description 10/03/2023 2:00 PM EDT Office [place] [address] Carlos Veloz MD [facility] [place] [address] documented as of this encounter Visit Diagnoses Not on filedocumented in this encounter Care Teams Food Safety Scientist Relationship Specialty Start Date End Date Mirian Malcolm MD [address] [place] [address] PCP - General Family Medicine 08/13/18 documented as of this encounter
--- OUTSIDE RECORDS SUMMARY | 2023-10-03 01:23 | XMS_ITS | Encounter Summary ---
Author Organization [facility] Address [facility] [place] [address] Care Team Providers Care Kersey Department Supervisor Name Role Phone Mirian Malcolm MD Primary Care Provider [phone] Reason for Visit * Reason Onset Date Comments Letter for School/Work 02/05/2019 Encounter Details Date Type Department Care Team (Late st Contact Info) Description 02/05/2019 [place] [phone] Karen Alfred, PA [facility] [address] [place] [address] Letter for School/Work Social History Tobacco Use [...] encounter Miscellaneous Notes * Telephone Encounter - Dale Herbert - 02/06/2019 2:57 PM EST Mr. Park called and said he gave the wrong fax and the letter needs to be faxed to [phone]. Letter Printed and re-faxed. * Telephone Encounter - Mirian Solo - 02/05/2019 12:33 PM EST Letter created and faxed. * Telephone Encounter - Gris Vasquez - 02/05/2019 11:55 AM EST Provider last seen by? Aubrie What type of letter is needed? To inform his work of his next appointment 02/27/2019 Would you like to orange picker your letter, fax, mail, or myD-H? fax no email please, only as a last option To what address/fax#? [phone] To whose attention? Soila Chan documented in this encounter Plan of Treatment Upcoming Encounters Date Type Department Care Team (Late st Contact Info) Description 10/03/2023 2:00 PM EDT Office [place] [address] Carlos Veloz MD [facility] [address] [place] [address] documented as of this encounter Visit Diagnoses Not on filedocumented in this encounter Care Teams Kersey Department Supervisor Relationship Specialty Start Date End Date Mirian Malcolm MD [address] [place] [address] PCP - General Family Medicine 08/13/18 documented as of this encounter
--- OUTSIDE RECORDS SUMMARY | 2023-10-03 01:23 | XMS_ITS | Encounter Summary ---
Author Organization [facility] Address [facility] [place] [address] Care Team Providers Care Vinyl Cutter Name Role Phone Mirian Malcolm MD Primary Care Provider [phone] Encounter Details Date Type Department Care Team (Latest Contact Info) Description 04/10/2022 Travel Social History Tobacco Use Types Packs/Day Years [...] 2:00 PM EDT Office [place] [address] Carlos Veloz MD [facility] [address] [place] [address] documented as of this encounter Visit Diagnoses Not on filedocumented in this encounter Care Teams Vinyl Cutter Relationship Specialty Start Date End Date Mirian Malcolm MD [address] [place] [address] PCP - General Family Medicine 08/13/18 documented as of this encounter
--- OUTSIDE RECORDS SUMMARY | 2023-10-03 01:23 | XMS_ITS | Clinical Summary ---
Author Organization [facility] Address [facility] [place] [address] Care Team Providers Care Outpatient Psychiatrist Name Role Phone Mirian Malcolm MD Primary Care Provider [phone] Allergies No known active allergies Medications Medication Sig Dispensed Refills Start Date End Date Status ascorbic acid (VITAMIN C) 500 mg tablet Take 500 mg by mouth daily. Active atenolol (TENORMIN) 100 mg tablet Take 100 mg by mouth daily. Active multivitamin with minerals (THERA-M) 9-0.4 mg tablet Take 1 tablet by mouth daily. Active gabapentin (NEURONTIN) 300 mg Capsule Take 900 mg by mouth daily. Active atorvastatin (LIPITOR) 10 mg Tablet Take 10 mg by mouth daily. 0 02/03/2018 Active citalopram (CELEXA) 20 mg Tablet 08/11/2018 Active lisinopril-hydrochlo rothiazide (PRINZIDE;ZESTORETIC ) 20-25 mg Tablet take 1 tablet by mouth once daily 0 03/07/2018 Active triamcinolone (Kenalog) 0.1 % Cream Apply thin layer topically on a twice daily basis to affected areas. 453.6 g 1 04/10/2022 Active predniSONE (Deltasone) 20 mg Tablet Take 4 tables by mouth every morning for 3 days, then 3 tablets by mouth every morning for 1 week, then 2 tablets by mouth every morning for 1 week, then 1 tablet by mouth every morning for 1 week, then 1 tablet by mouth every other morning for 1 week then discontinue. 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 Overview (12/21/2010): Mild delay just distal to olecranon on EMG 12/21/10 Encounters Date Type Department Care Team Description 07/30/2023 Transcribe Orders eDH Incoming Referrals [phone] Mirian Malcolm MD Charcot's arthropathy 07/12/2023 Ancillary Procedure [place] [address] Carlos Veloz MD 07/05/2023 12:10 AM EDT Ancillary Procedure [place] [address] Carlos Veloz MD 07/05/2023 12:05 AM EDT Ancillary Procedure [place] [address] Mirian Malcolm MD 07/05/2023 Ancillary Procedure [place] [address] Carlos Veloz MD from Last 3 Months Family History Medical History Relation Comments Diabetes Neg Hx Social History Tobacco Use Types Packs/Day Years Used Date Smoking Tobacco: Every Day Cigarettes 1 25 Smokeless Tobacco: Never Tobacco Cessation:Ready to Q uit: No; Counseling Given: Yes Alcohol Use Standard Drinks/Week Comments Yes 0 (1 standard drink = 0.6 oz pur e alcohol) 3-4 per night Sex and Gender Information Value Date Recorded Sex Assigned at Not on file Gender Identity Not on file Sexual Orientation Not on file Last Filed Vital Signs Vital Sign Reading Time Taken Comments Blood Pressure 176/100 02/27/2019 9:55 AM EST Pulse 59 02/27/2019 9:55 AM EST Temperature 36.7 ??C (98 ??F) 08/18/2018 11:49 AM EDT Respiratory Rate 18 08/15/2018 9:55 AM EDT Oxygen Saturation 94% 08/15/2018 9:55 AM EDT Inhaled Oxygen Concentration - - Weight 113.4 kg (250 lb) 02/27/2019 9:55 AM EST verbal Height 182.9 cm (6') 02/27/2019 9:55 AM EST verb al Body Mass Index 33.91 02/27/2019 9:55 AM EST Plan of Treatment Upcoming Encounters Date Type Department Care Team (Late st Contact Info) Description 10/03/2023 2:00 PM EDT Office [place] [phone] Carlos Veloz MD [facility] [address] [place] [address] Health Maintenance Due Date Last Done Comments CT Colonography 1969 Colonoscopy 1969 Colorectal Cancer Screening 1969 FIT DNA 1969 FIT 1969 Sigmoidoscopy (10 year) with FIT yearly 1969 Sigmoidoscopy 1969 Pneumococcal Vaccine: At-Ris k 5-64yrs (1 of 2 - PCV) 1975 HIV screen 1987 Hepatitis C Screening 1987 Hepatitis B vaccine (0-59 yr s) (1) 01/15/1988 Tdap adult 01/15/1988 Tetanus vaccine 01/15/1988 Zoster vaccine (1 of 2) 2019 Covid-19 Vaccine (1 - 2022-2 4 season) 2022 Influenza (Flu) vaccine (1 o f 1 - Influenza standard series) 10/27/2023 Diabetes Screening (HgbA1C o r Glucose) Discontinued 08/14/2018, 08/13/2018, 06/27/2016, Additional history exists Medical Devices Implanted Type Area Tape Fastener Machine Operator Device Identifier Shelf Expiration Date Model / Serial / Lot Cannu,Tfna,Ti ,130d,Lt,12x4 00-S ([id number]) (Autoreq) - [id number] Implanted:Qty : 1 on 08/13/2018 by Carlos Veloz MD at [facility] IMPLANTS Left: Femur [employer] - GASPER BLAKE 05/25/2028 [id number] S / / [id number] Blade,Tfna,Fn strt,Hlcl,100 mm-S ([id number]) ([employer]oreq) - [id number] Implanted:Qty : 1 on 08/13/2018 by Carlos Veloz MD at [facility] IMPLANTS Left: Femur [employer] - [employer]KE 12/26/2027 [id number] S / / [id number] Screw,Ti,Lck, T25,5x46mm ([id number]) ([employer]oreq) - [id number] Implanted:Qty : 1 on 08/13/2018 by Carlos Veloz MD at [facility] IMPLANTS Left: Femur [employer] - [employer]LAKE 01/24/2027 [id number] S / / [id number] Screw,Ti,Lck, T25,5x42mm ([id number]) ([employer]oreq) - [id number] Implanted:Qty : 1 on 08/13/2018 by Carlos Veloz MD at [facility] IMPLANTS Left: Femur [employer] - G[employer]PER [employer]LAKE 02/24/2027 [id number] S / / [id number] Procedures Procedure Name Priority Date/Time Associated Diagnosis Comments DIAGNOSTIC RADIOLOGY SCAN 07/30/2023 12:00 AM EDT FILM LIBRARY STORAGE ONLY DX FOOT Routine 07/12/2023 12:00 AM EDT FILM LIBRARY STORAGE ONLY DX FOOT Routine 07/05/2023 12:10 AM EDT FILM LIBRARY STORAGE ONLY DX FOOT Routine 07/05/2023 12:05 AM EDT FILM LIBRARY STORAGE ONLY ULTRASOUND STUDY Routine 07/05/2023 12:00 AM EDT LAB SCAN 07/05/2023 12:00 AM EDT ULTRASOUND SCAN (SCAN) 07/05/2023 12:00 AM EDT BMP W/FASTING GLUCOSE Routine 08/14/2018 3:37 AM EDT from Last 3 Months or Most Recently Relevant to Health Maintenance Results * Scan Doc: Diagnostic Radiology (07/30/2023 12:00 AM EDT) Anatomical Region Laterality Modality Other Narrative 07/30/2023 12:00 AM EDT Ordered by an unspecified provider. Scanning Provider MEDIA MGR SCAN EXT O RDR/RSLT * Film Library- Storage Only DX Foot (07/12/2023 12:00 AM EDT) Only the most recent of3 resultswithin the time period is included. Narrative [facility] - 07/31/2023 1:21 PM EDT This exam is auto-finalizing. It's purpose is for storage only. Carlos Veloz MD [facility] [place] [employer] ORD Resident Gifts Performing Organization Address [facility] de Phone Number [place], [place] * Scan Doc: Ultrasound (07/05/2023 12:00 AM EDT) Anatomical Region Laterality Modality Other Narrative 07/05/2023 12:00 AM EDT Ordered by an unspecified provider. Scanning Provider MEDIA MGR SCAN EXT O RDR/RSLT * Scan Doc: Lab (07/05/2023 12:00 AM EDT) Narrative 07/05/2023 12:00 AM EDT Ordered by an unspecified provider. Scanning Provider MEDIA MGR SCAN EXT O RDR/RSLT * Film Library- Storage Only Ultrasound Study (07/05/2023 12:00 AM EDT) Narrative [facility] - 07/31/2023 1:09 PM EDT This exam is auto-finalizing. It's purpose is for storage only. Carlos Veloz MD [facility] [place] [employer] Performing Organization Address [facility] Co de Phone Number [place], [place] * (ABNORMAL) BMP w/fasting Glucose (08/14/2018 3:37 AM EDT) Glucose Fasting 159(H) 65 - 99 mg/dL [facility] Comment: ?Fasting* Glucose Interpretive Criteria Normal ?65-99 mg/dL Impaired Fasting glucose ?100-125 mg/dL Consistent with Diabetes Mellitus ? >or= 126 mg/dL *Fasting is defined as no caloric intake for at least 8 hours In the absence of unequivocal hyperglycemia a plasma glucose value of >or= 126 mg/dL should be repeated on a subsequent day. Diagnosis and Classification of Diabetes Mellitus, Position Statement from the [place] [employer]. ??Diabetes Care, Volume 33, Supplement 1, Feb 2009 Blood Urea Nitrogen 16 10 - 20 mg/dL [facility] Creatinine 0.89 0.80 - 1.50 mg/dL [facility] Sodium 134(L) 135 - 145 mmol/L [facility] Potassium 4.1 3.5 - 5.0 mmol/L [facility] Comment: Please note: ??Patients with WBC >100,000 may have falsely elevated Potassium levels. ??For accurate Potassium quantification in these patients send serum separator tube (gold top) for subsequent determinations. ??Contact the Clinical Chemistry Laboratory if there are any questions. Chloride 100 98 - 107 mmol/L [facility] Carbon Dioxide 25 22 - 31 mmol/L [facility] Anion Gap 9 5 - 15 mmol/L [facility] Calcium 7.6(L) 8.5 - 10.5 mg/dL [facility] Est Glomerular Filtration Rate 100 >=60 mL/min/1. 73 m?? [facility] Comment: The eGFR was calculated using the CKD-EPI equation. As with all creatinine based estimates of kidney function, eGFR values calculated with the CKD-EPI equation are not accurate in patients with acute kidney failure, extremes of body mass or the acutely ill. [email or web address] eGFR 116 >=60 mL/min/1. 73 m?? [facility] Comment: The eGFR was calculated using the CKD-EPI equation. As with all creatinine based estimates of kidney function, eGFR values calculated with the CKD-EPI equation are not accurate in patients with acute kidney failure, extremes of body mass or the acutely ill. [email or web address] Blood specimen (specimen) 08/14/2018 3:37 AM EDT 08/14/2018 3:44 AM EDT Narrative Resulting Agency Comment Spec In Lab Carlos Veloz MD CHEMISTRY ORDERABLES [facility] [place] [address] from Last 3 Months or Most Recently Relevant to Health Maintenance Advance Directives * Full Code (Latest Code Status on File) Date Activated Date Inactivated Comments 08/13/2018 7:47 AM 08/15/2018 8:44 PM Question Answer Comments Does patient have capacity to make decision: Yes Care Teams Outpatient Psychiatrist Relationship Specialty Start Date End Date Mirian Malcolm MD [address] [place] [address] PCP - General Family Medicine 08/13/18
--- OUTSIDE RECORDS SUMMARY | 2023-10-03 01:23 | XMS_ITS | Encounter Summary ---
Author Organization [facility] [place] [address] Care Team Providers Care Bench Loom Weaver Name Role Phone Mirian Malcolm MD Primary Care Provider Encounter Details Date Type Department Care Team (Late st Contact Info) Description 12/23/2018 Telephone Orthopaedics at [facility] [place] [address] Marii Shah RN Social History Tobacco Use Types Packs/Day [...] encounter Miscellaneous Notes * Telephone Encounter - Mara Clark - 12/29/2018 9:39 AM EST LM#2 to make aware of need for HARLEY before forwarding information over to employer. * Telephone Encounter - Mara Clark - 12/25/2018 11:22 AM EDT LM#1 for patient to return call to discuss need for HARLEY in order to be able to forward the requested records to his work. I have mailed out a release to patient to sign and send back if he does not have one. Direct to Mara or Branden * Telephone Encounter - Marii Shah RN - 12/23/2018 2:26 PM EDT Patient calls in stating that there is an issue with his FMLA paperwork, he states that he needs all th office notes since July to be faxed to [employer]ila at [phone]. Reviewed we would send to our FMLAexpert and they would be in touch with any further concerns documented in this encounter Plan of Treatment Upcoming Encounters Date Type Department Care Team (Late st Contact Info) Description 10/03/2023 2:00 PM EDT [place] [address] Carlos Veloz MD [facility] [address] [place] [address] documented as of this encounter Visit Diagnoses Not on filedocumented in this encounter Care Teams Bench Loom Weaver Relationship Specialty Start Date End Date Mirian Malcolm MD [address] [place] [address] PCP - General Family Medicine 08/13/18 documented as of this encounter
--- OUTSIDE RECORDS SUMMARY | 2023-10-03 01:23 | XMS_ITS | Encounter Summary ---
Author Organization [facility] Address [facility] [place] [address] Care Team Providers Care Attendance Secretary Name Role Phone Mirian Malcolm MD Primary Care Provider [phone] Reason for Referral * Physical Therapy (Routine) - Specialty Diagnoses / Procedures Referred By Contblake t Referred To Contact Diagnoses Closed displaced intertrochanteric fracture of right femur, initial encounter Karen Alfred PA [facility] [place] [address] Referral ID Status Reason Start Date Expiration Date V isits Requested Visits Authorized [id number] Evaluate and Treat 08/27/2018 02/23/2019 1 1 Reason for Visit * Reason Comments Follow Up Surgery L IT s/p CMN 08/13/18 (Magdiel) DOI: 08/13/18 Encounter Details Date Type Department Care Team (Latest Contact Info) Description 08/27/2018 2:30 PM EDT Office [place] [address] Karen Alfred PA [facility] [place] [address] Closed displaced intertrochanteric fracture of right femur, [...] Sign Reading Time Taken Comments Blood Pressure 165/95 08/27/2018 2:49 PM EDT Pulse 61 08/27/2018 2:49 PM EDT Temperature - - Respiratory Rate - - Oxygen Saturation - - Inhaled Oxygen Concentration - - Weight 111.1 kg (245 lb) 08/27/2018 2:49 PM EDT reported Height 182.9 cm (6') 08/27/2018 2:49 PM EDT repo rted Body Mass Index 33.23 08/27/2018 2:49 PM EDT documented in this encounter Progress Notes * Karen Alfred PA - 08/27/2018 2:30 PM EDT PATIENT NAME: Porsha Park AGE: 48 y.o. MR#: [id number] DATE OF VISIT: 08/27/2018 CHIEF COMPLAINT: 2 weeks Hospital check post Left IT fracture with CMN DOS 08/13/18 (Magdiel) HISTORY OF PRESENT ILLNESS: Mr. Park is a 48 y.o. male who comes into clinic today for evaluation of the left femur Porsha was last in for a nurse visit which I was able to attend on 08/18/18 for some concerns regarding swelling of his lateral thigh. He was given a prescription for Keflex to be taken 4 times per day, for 10 days. Unfortunately, he stopped this three days ago as his lateral thigh swelling and redness had dissipated. He reports doing very well. He is working with at home PT and is WBAT. He will experience some dependent swelling of his ankles. He denies fever, chills, drenchingnight sweats. Past medical history: Patient Active Problem List Diagnosis Date Noted ??? Postoperative anemia due to acute blood loss 08/14/2018 ??? L IT fx s/p CMN 08/13/18 (Magdiel) 08/13/2018 ??? Swelling of thigh 04/19/2016 ??? Left shoulder pain 06/30/2012 ??? Neuropathy 06/30/2012 ??? Cervical radiculopathy 06/30/2012 ??? Elbow pain, right 12/21/2010 ??? 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 cephalexin (KEFLEX) 500 mg Tablet ??? citalopram (CELEXA) 20 mg Tablet ??? lisinopril (PRINIVIL;ZESTRIL) 20 mg Tablet ??? lisinopril-hydrochlorothiazide (PRINZIDE;ZESTORETIC) 20-25 mg Tablet ??? oxyCODONE (ROXICODONE) 5 mg Tablet ??? polyethylene glycol (MIRALAX) 17 gram Powder in Packet ??? enoxaparin (LOVENOX) 40 mg/0.4 mL Syringe ??? atorvastatin (LIPITOR) 10 mg Tablet ??? [...] Substance Use Topics ??? Alcohol use: Yes Alcohol/week: 15.0 oz Types: 25 Shots of liquor per week Review of systems: No chest pain or shortness of breath No fevers, night sweats or chills Vital signs: Blood pressure (!) 165/95, pulse 61, height 182.9 cm (6'), weight 111.1 kg (245 lb). Physical exam: Mr. Park is a 48 y.o. male who is alert and oriented. He is in no acute discomfort and is resting comfortably in the exam room. Multiple incisions No mc-incisional erythema noted No bogginess or drainage to palpation about the incision Skin feels no warmer than surrounding tissue I am not able to part the skin with gentle palpation Calf is supple and non tender PT/DP pulses 2+. Superficial peroneal, deep peroneal, sural, saphenous, and tibial nerves intact totouch. Imaging studies: XR images of the left femur were obtained shooing good alignment of the IT fracture with CMN. No change in alignment since previous imaging. Assessment and plan:: 48 y.o. year-old male now roughly 2 weeks out post Left IT fracture with CMN DOS 08/13/18 (Magdiel) We had a long discussion regarding the nature of Porsha Park's chief complaint. We reviewed the imaging together which is described above. Clinically Porsha Park is healing his incisions nicely. We again discussed the importance of completing all the antibiotics despite the resolution of symptoms. Sutures and jayde were removed today in clinic. The pt handled this well. Steri strips need to remain in place for at least one week. Showers are ok, however please do not submerge the incision until the scabs have been replaced by scars. May WBAT Please work on knee and hip ROM Quad and core strengthening Modalities as needed for pain and edema control. This plan was discussed with the patient and they are in agreement. All of the patient's questions were answered. The patient understand to contact us if they have any other questions or concerns. FU: 4 weeks. With repeat images of the left femur Karen Alfred PA-C The above dictation was made with voice recogonition software documented in this encounter Plan of Treatment Upcoming Encounters Date Type Department Care Team (Late st Contact Info) Description 10/03/2023 2:00 PM EDT Office Visit [place] [address] Carlos Veloz MD [facility] [place] [address] Scheduled Referrals Name Type Priority Associated Diagnoses Orde r Schedule Referral to Physical Therapy Outpatient Referral Routine Closed displaced intertrochanteric fracture of right femur, initial encounter Ordered: 08/27/2018 documented as of this encounter Results * XR Femur 2 views Left (Generic) (10/06/2018 2:36 PM EDT) Anatomical Region Laterality Modality Thigh Left Digital Radiogra phy Impressions 10/06/2018 3:56 PM EDT Ongoing healing of the left intratrochanteric fracture with stable appearance of the cephalomedullary male with distal retaining screws and lateral femoral screw in place. No radiographic complication. Thank you for letting us participate in the care of this patient. For questions regarding this report, please contact the number below. ? Electronically signed by: Kimmy Mayers MD, [facility] ([phone]), at 10/06/2018 3:56 PM Narrative 10/06/2018 3:56 PM EDT EXAMINATION: XR FEMUR 2 VIEWS LEFT (GENERIC) CLINICAL HISTORY: Left IT fx with CMN 08/13/18 TECHNIQUE: 2 views LEFT femur COMPARISON: 08/13/2018 and 08/27/2018 FINDINGS: Patient is status post left femur cephalomedullary nail and femoral neck pinning. A medullary fixation of the left intratrochanteric fracture. Fracture line is sclerotic and less well-visualized. LEFT hip joint: Observed joint space. Amorphous calcifications at the anterior inferior iliac spine. Degenerative changes of the left knee. Sella femoral joint degenerative change. Procedure Note Kimmy Mayers MD - 10/06/2018 EXAMINATION: XR FEMUR 2 VIEWS LEFT (GENERIC) CLINICAL HISTORY: Left IT fx with CMN 08/13/18 TECHNIQUE: 2 views LEFT femur COMPARISON: 08/13/2018 and 08/27/2018 FINDINGS: Patient is status post left femur cephalomedullary nail and femoral neck pinning. A medullary fixation of the left intratrochanteric fracture.Fracture line is sclerotic and less well-visualized. LEFT hip joint: Observed joint space. Amorphous calcifications at theanterior inferior iliac spine. Degenerative changes of the left knee. Sella femoral joint degenerativechange. IMPRESSION Ongoing healing of the left intratrochanteric fracture with stableappearance of the cephalomedullary male with distal retaining screws and lateral femoralscrew in place. No radiographic complication. Thank you for letting us participate in the care of this patient. Forquestions regarding this report, please contact the number below. Ester Almendarez MD IMG DX ORDERABLES documented in this encounter Visit Diagnoses Diagnosis Closed displaced intertrochanteric fracture of right femur, initial encounter Closed displaced intertrochanteric fracture of right femur, initial encounter documented in this encounter Care Teams Attendance Secretary Relationship Specialty Start Date End Date Mirian Malcolm MD [address] [place] [address] PCP - General Family Medicine 08/13/18 documented as of this encounter
--- OUTSIDE RECORDS SUMMARY | 2023-10-03 01:23 | XMS_ITS | Encounter Summary ---
Author Organization [facility] Address [facility] [place] [address] Care Team Providers Care Respiratory Coordinator Name Role Phone Mirian Malcolm MD Primary Care Provider [phone] Encounter Details Date Type Department Care Team (Latest Contact Info) Description 12/08/2018 4:30 PM EDT - 12/08/2018 11:59 PM EDT Hospital Encounter XRay at [address] [place] [address] Ester Almendarez MD [facility] [place] [address] Closed displaced intertrochanteric fracture of right femur, [...] Date citalopram (CELEXA) 20 mg Tablet 08/11/2018 lisinopril-hydrochlorothia zide (PRINZIDE;ZESTORETIC) 20-25 mg Tablet take 1 tablet [...] tablet Take 1 tablet by mouth daily. documented as of this encounter Plan of Treatment Upcoming Encounters Date Type Department Care Team (Late st Contact Info) Description 10/03/2023 2:00 PM EDT Office Visit Orthopaedics at [facility] [place] [place] [address] Carlos Veloz MD [facility] [place] [address] documented as of this encounter Procedures Procedure Name Priority Date/Time Associated Diagnosis Comments XR FEMUR 2 VIEWS LEFT Routine 12/08/2018 4:48 PM EDT Closed displaced intertrochanteric fracture of right femur, initial encounter documented in this encounter Results * XR Femur 2 views Left (Generic) (12/08/2018 4:48 PM EDT) Anatomical Region Laterality Modality Thigh Left Digital Radiogra phy Impressions 12/08/2018 4:53 PM EDT Stable appearance of hardware and region of the intratrochanteric zone of the proximal left femur compared with 11/02/2019 Thank you for letting us participate in the care of this patient. For questions regarding this report, please contact the number below. ? Narrative 12/08/2018 4:53 PM EDT EXAMINATION: XR FEMUR 2 VIEWS LEFT (GENERIC) CLINICAL HISTORY: Left IT fx with IMN TECHNIQUE: 2 views LEFT femur COMPARISON: 10/06/2018 FINDINGS: A nail and long intramedullary antonette are present stabilizing the intertrochanteric fracture of the left femur and there is no change compared with 10/06/2018, sclerotic changes noted at the level of the lesser trochanter. Distal aspects of the antonette and its transverse stabilizing screws appears stable, degenerative changes are seen at the knee, chronic. Procedure Note Cuco Ewing MD - 12/08/2018 EXAMINATION: XR FEMUR 2 VIEWS LEFT (GENERIC) CLINICAL HISTORY: Left IT fx with IMN TECHNIQUE: 2 views LEFT femur COMPARISON: 10/06/2018 FINDINGS: A nail and long intramedullary antonette are present stabilizing theintertrochanteric fracture of the left femur and there is no change compared with10/06/2018, sclerotic changes noted at the level of the lesser trochanter. Distalaspects of the antonette and its transverse stabilizing screws appears stable,degenerative changes are seen at the knee, chronic. IMPRESSION Stable appearance of hardware and region of the intratrochanteric zone ofthe proximal left femur compared with 11/02/2019 Thank you for letting us participate in the care of this patient. Forquestions regarding this report, please contact the number below. Ester Almendarez MD IMG DX ORDERABLES documented in this encounter Visit Diagnoses Diagnosis Closed displaced intertrochanteric fracture of right femur, initial encounter documented in this encounter Care Teams Respiratory Coordinator Relationship Specialty Start Date End Date Mirian Malcolm MD [address] [place] [address] PCP - General Family Medicine 08/13/18 documented as of this encounter
--- OUTSIDE RECORDS SUMMARY | 2023-10-03 01:23 | XMS_ITS | Encounter Summary ---
Author Organization [facility] [place] [address] Care Team Providers Care Diesel Power Mechanic Name Role Phone Mirian Malcolm MD Primary Care Provider [phone] Reason for Visit * Reason Onset Date Comments Referral 09/02/2018 PT Encounter Details Date Type Department Care Team (Late st Contact Info) Description 09/02/2018 [place] [address] Mirian Velazco RN Referral (PT) Social History Tobacco Use Types Packs/Day Years [...] Miscellaneous Notes * Telephone Encounter - Mirian Velazco RN - 09/02/2018 10:59 AM EDT Patient called to request a new PT referral as Home Health PT is expiring this week. Patient requesting for referral to be faxed to [facility] (PH: [phone]; FAX: [phone]). documented in this encounter Plan of Treatment Upcoming Encounters Date Type Department Care Team (Late st Contact Info) Description 10/03/2023 2:00 PM EDT Office [place] [address] Carlos Veloz MD [facility] [place] [address] documented as of this encounter Visit Diagnoses Not on filedocumented in this encounter Care Teams Diesel Power Mechanic Relationship Specialty Start Date End Date Mirian Malcolm MD [address] [place] [address] PCP - General Family Medicine 08/13/18 documented as of this encounter
--- OUTSIDE RECORDS SUMMARY | 2023-10-03 01:23 | XMS_ITS | Encounter Summary ---
Author Organization [facility] Address [facility] [place] [address] Care Team Providers Care School Library Media Program Director Name Role Phone Mirian Malcolm MD Primary Care Provider Reason for Referral * Physical Therapy (Routine) - Specialty Diagnoses / Procedures Referred By Contblake t Referred To Contact Diagnoses Closed displaced intertrochanteric fracture of right femur, initial encounter Karen Alfred PA [facility] [place] [address] Referral ID Status Reason Start Date Expiration Date V isits Requested Visits Authorized [id number] Evaluate and Treat 12/08/2018 06/06/2019 1 1 Reason for Visit * Reason Comments Follow Up Fracture L IT FX s/p CMN 08/13 ( MAGDIEL) DOI 08/13/18 Encounter Details Date Type Department Care Team (Latest Contact Info) Description 12/08/2018 3:30 PM EDT Office [place] [address] [facility] [place] [address] Closed displaced intertrochanteric fracture of right femur, [...] Sign Reading Time Taken Comments Blood Pressure 163/98 12/08/2018 3:37 PM EDT Pulse 59 12/08/2018 3:37 PM EDT Temperature - - Respiratory Rate - - Oxygen Saturation - - Inhaled Oxygen Concentration - - Weight 113.4 kg (250 lb) 12/08/2018 3:37 PM EDT Height 182.9 cm (6') 12/08/2018 3:37 PM EDT Body Mass Index 33.91 12/08/2018 3:37 PM EDT documented in this encounter Progress Notes * Karen Alfred PA - 12/08/2018 3:30 PM EDT PATIENT NAME: Porsha Park AGE: 48 y.o. MR#: [id number] DATE OF VISIT: 12/08/2018 CHIEF COMPLAINT: 4 month FU Left IT fracture with CMN DOS 08/13/18 (Magdiel) HISTORY OF PRESENT ILLNESS: Mr. Park is a 48 y.o. male who comes into clinic today for evaluation of the left femur. The PT was last in to see myself on 10/06/2018 . Since this visit he feels like he has plateau regarding his left knee progress. He continues to work hard in PT. He has pain located deep in the peroneal region, as well as lateral flank. He feels that his left leg is larger than the right and asked his PT provider to measure the circumferences of both legs. His right leg is 1-1/2 inches larger than the right. The inside of the legs feels gelatinous and he is unable to confidentially stand on his left leg by itself. He denies fever,chills, drenching night sweats. He would like to obtain new XR today to determine if there is some indication on XR as to why he is struggling so much with his strength. Past medical history: Patient Active Problem List [...] or chills Vital signs: Blood pressure (!) 163/98, pulse 59, height 182.9 cm (6'), weight [...] extension to 0 degrees Flexion to 120 Able to perform straight leg raise, however only able to lift heal an inch or so off the floor. Fasciculations while activating the quads Abductors 3/5 PT/DP pulses 2+. Superficial peroneal, deep peroneal, sural, saphenous, and tibial nerves intact totouch. Calf in supple and non tender. Imaging studies: XR images of the left femur were obtained shooing good alignment of the IT fracture with CMN. No change in alignment since previous imaging. Interval sclerosis since previous imaging. Assessment and plan:: 48 y.o. year-old male now roughly 4 months out post Left IT fracture with CMN DOS 08/13/18 (Magdiel), trochanteric bursitis on the left as well as well as very weak quads and abductor muscles. We had a long discussion regarding the nature of Porsha Park's chief complaint. We reviewed the imaging together which is described above. Clinically Porsha Park has good hip and knee ROM. He is able to perform SLR however his quadricepts fasiculate when he attempts this. He as well has extremely weak abductor muscles. We discussed obtaining XR images to rule out any hardware complication though my suspicion was low. XR images came back with no indication of failure. I recommend a gradualbut steady increase in quad and abductor strengthening. This is likely what the soft tissue that heis palpating on the medial aspect of this left thigh. He has significant muscle atrophy. He does rep ort that PT stopped his work on abductor days after some increased pain in the lateral flank. To some extent, pain in this area is to be expected after this type of surgery and while increasing his strength. This plan was discussed with the patient and they are in agreement. All of the patient's questions were answered. The patient understand to contact us if they have any other questions or concerns. FU: 2 months, no XR Karen Alfred PA-C The above dictation was made with voice recogonition software documented in this encounter Plan of Treatment Upcoming Encounters Date Type Department Care Team (Late st Contact Info) Description 10/03/2023 2:00 PM EDT Office [place] [address] [facility] [place] [address] Scheduled Referrals Name Type Priority Associated Diagnoses Orde r Schedule Referral to Physical Therapy Outpatient Referral Routine Closed displaced intertrochanteric fracture of right femur, initial encounter Ordered: 12/08/2018 documented as of this encounter Results * [...] this report, please contact the number below. Electronically signed by: CUCO EWING [facility]([phone]), at 12/08/2018 4:53 PM Ester Almendarez MD IMG DX ORDERABLES documented in this encounter Visit Diagnoses Diagnosis Closed displaced intertrochanteric fracture of right femur, initial encounter Closed displaced intertrochanteric fracture of right femur, initial encounter documented in this encounter Care Teams School Library Media Program Director Relationship Specialty Start Date End Date Mirian Malcolm MD [address] [place] [address] PCP - General Family Medicine 08/13/18 documented as of this encounter
--- OUTSIDE RECORDS SUMMARY | 2023-10-03 01:23 | XMS_ITS | Encounter Summary ---
Author Organization [facility] Address [facility] [place] [address] Care Team Providers Care Sandblaster Paint Sprayer Name Role Phone Mirian Malcolm MD Primary Care Provider [phone] Encounter Details Date Type Department Care Team (Latest Contact Info) Description 10/06/2018 2:26 PM EDT - 10/06/2018 11:59 PM EDT Hospital Encounter XRay at [address] [place] [address] Ester Almendarez MD [facility] [place] [address] Closed displaced intertrochanteric fracture of right femur, [...] 2:00 PM EDT Office [place] [address] Carlos Veloz MD [facility] [place] [address] documented as of this encounter Procedures Procedure Name Priority Date/Time Associated Diagnosis Comments XR FEMUR 2 VIEWS LEFT Routine 10/06/2018 2:36 PM EDT Closed displaced intertrochanteric fracture of [...] please contact the number below. ? Narrative 10/06/2018 3:56 PM EDT EXAMINATION: XR [...] contact the number below. Electronically signed by: Kimmy Mayers MD, [facility]([phone]), at 10/06/2018 3:56 PM Ester Almendarez MD IMG DX ORDERABLES documented in this encounter Visit Diagnoses Diagnosis Closed displaced intertrochanteric fracture of right femur, initial encounter documented in this encounter Care Teams Sandblaster Paint Sprayer Relationship Specialty Start Date End Date Mirian Malcolm MD [address] [place] [address] PCP - General Family Medicine 08/13/18 documented as of this encounter
--- OUTSIDE RECORDS SUMMARY | 2023-10-03 01:23 | XMS_ITS | Encounter Summary ---
Author Organization [facility] Address [facility] [place] [address] Care Team Providers Care Yield Improvement Engineer Name Role Phone Mirian Malcolm MD Primary Care Provider [phone] Reason for Visit * Reason Onset Date Comments Disability Paperwork 08/21/2018 Encounter Details Date Type Department Care Team (Late st Contact Info) Description 08/21/2018 [place] [phone] Carlos Veloz MD [facility] [place] [address] Disability Paperwork Social History Tobacco Use Types Packs/Day Years [...] encounter Miscellaneous Notes * Telephone Encounter - Mary Ford - 08/26/2018 9:14 AM EDT Faxed/Mailed/Pick-up Date: Faxed * Telephone Encounter - Mary Ford - 08/25/2018 11:27 AM EDT Completed by: Mary To provider for review/signature: out for signature * Telephone Encounter - Mary Ford - 08/21/2018 8:47 AM EDT Date Received: 08/20/18 Insurance/Disability Company Name: [employer] Release on file/mailed: n/a documented in this encounter Plan of Treatment Upcoming Encounters Date Type Department Care Team (Late st Contact Info) Description 10/03/2023 2:00 PM EDT Office [place] [address] Carlos Veloz MD [facility] [place] [address] documented as of this encounter Visit Diagnoses Not on filedocumented in this encounter Care Teams Yield Improvement Engineer Relationship Specialty Start Date End Date Mirian Malcolm MD [address] [place] [address] PCP - General Family Medicine 08/13/18 documented as of this encounter
--- OUTSIDE RECORDS SUMMARY | 2023-10-03 01:23 | XMS_ITS | Encounter Summary ---
Author Organization [facility] Address [facility] [place] [address] Care Team Providers Care Bottle Cleaner Name Role Phone Mirian Malcolm MD Primary Care Provider [phone] Reason for Visit * Reason Comments Wound Check L Thigh s/p IMN left femur 08/13/18 Encounter Details Date Type Department Care Team (Latest Contact Info) Description 08/18/2018 11:45 AM EDT Office Visit [place] [address] Karen Alfred PA [facility] [place] [address] Closed displaced intertrochanteric fracture of right femur, initial encounter Social History Tobacco Use Types Packs/Day Years Used Date Smoking Tobacco: Every Day Cigarettes 1 25 Smokeless Tobacco: Never Tobacco Cessation:Ready to Q uit: No; Counseling Given: Yes Alcohol Use Standard Drinks/Week Comments Yes 25 (1 standard drink = 0.6 oz pu re alcohol) Sex and Gender Information Value Date Recorded Sex Assigned at Not on file Gender Identity Not on file Sexual Orientation Not on file documented as of this encounter Last Filed Vital Signs Vital Sign Reading Time Taken Comments Blood Pressure 132/68 08/18/2018 11:49 AM EDT Pulse 59 08/18/2018 11:49 AM EDT Temperature 36.7 ??C (98 ??F) 08/18/2018 11:49 AM EDT Respiratory Rate - - Oxygen Saturation - - Inhaled Oxygen Concentration - - Weight 111.1 kg (245 lb) 08/18/2018 11:49 AM EDT Height 182.9 cm (6') 08/18/2018 11:49 AM EDT Body Mass Index 33.23 08/18/2018 11:49 AM EDT documented in this encounter Progress Notes * Karen Alfred PA - 08/18/2018 11:45 AM EDT Images from the original note were not included. Pt came in to see ARNOL Lopez today for a nurse visit. Irving came for consult with me. Porsha is 5 days out post left IT femur fracture with IMN placement (Magdiel). He has noticed progressively worsening hip pain as well as increase in drainage from the proximal incision. He has needed to change the dressing frequently. He denies fever, chills, drenching night sweats. He continues to take the Lovenox injection for blood thinner. He had noticed increased bruising about the posterolateral flank. On exam today, he is sitting in his wheelchair with tilted to the right side. He reports that it isvery difficult to get comfortable when putting pressure on his left hip. Dressing was removed. Proximal incision, mc-incisional erythema about the distal aspect of the incision. When the dressing was removed, this was saturated with yelllow/white fluid. No real bogginess about the incision. No significant warmth about the area. Distal incision. The proximal aspect of the incision has a mild amount of mc- incisions erythema.No bogginess to palpation noted. Ankle ROM WNL PT/DP pulses 2+. Superficial peroneal, deep peroneal, sural, saphenous, and tibial nerves intact totouch. Plan: Plan discussed in conjunction with Dr. Veloz. We had a long discussion regarding the nature of his discomfort. We discussed that the incisions themselves looked a bit red, however not remarkably so. I would like to cover for the potential of infection with a 10 day course of Cephalexin. We have also shown him how to apply a spica wrap to help with edema. He should follow up at his previously scheduled hospital check. Karen Alfred PA-C documented in this encounter Plan of Treatment Upcoming Encounters Date Type Department Care Team (Late st Contact Info) Description 10/03/2023 2:00 PM EDT Office Visit [place] [address] Carlos Veloz MD [facility] [place] [address] documented as of this encounter Visit Diagnoses Diagnosis Closed displaced intertrochanteric fracture of right femur, initial encounter documented in this encounter Care Teams Bottle Cleaner Relationship Specialty Start Date End Date Mirian Malcolm MD [address] [place] [address] PCP - General Family Medicine 08/13/18 documented as of this encounter
--- OUTSIDE RECORDS SUMMARY | 2023-10-03 01:23 | XMS_ITS | Encounter Summary ---
Author Organization [facility] [place] [address] Care Team Providers Care Welding Machine Operator Electron Beam Name Role Phone Mirian Malcolm MD Primary Care Provider [phone] Encounter Details Date Type Department Care Team (Late Contact Info) Description 07/12/2023 Ancillary Procedure [place] [address] Carlos Veloz MD [facility] [place] [address] Social History Tobacco Use Types Packs/Day Years [...] 2:00 PM EDT Office [place] [address] Carlos Veloz MD [facility] [place] [address] documented as of this encounter Procedures Procedure Name Priority Date/Time Associated Diagnosis Comments FILM LIBRARY STORAGE ONLY DX FOOT Routine 07/12/2023 12:00 AM EDT documented in this encounter Results * Film Library- Storage Only DX Foot (07/12/2023 12:00 AM EDT) Narrative [facility] - 07/31/2023 1:21 PM EDT This exam is auto-finalizing. It's purpose is for storage only. Carlos Veloz MD IMG FILM LIBRARY ORD ERABLES [facility] [place], [place] documented in this encounter Visit Diagnoses Not on filedocumented in this encounter Care Teams Welding Machine Operator Electron Beam Relationship Specialty Start Date End Date Mirian Malcolm MD [address] [place] [address] PCP - General Family Medicine 08/13/18 documented as of this encounter
--- OUTSIDE RECORDS SUMMARY | 2023-10-03 01:23 | XMS_ITS | Encounter Summary ---
Author Organization [facility] Address [facility] [place] [address] Care Team Providers Care Log Clerk Name Role Phone Mirian Malcolm MD Primary Care Provider [phone] Reason for Visit * Reason Comments Rash * Consultation (Routine) - Closed Specialty Diagnoses / Procedures Referred By Contblake t Referred To Contact Dermatology Diagnoses Rash and other nonspecific skin eruption Procedures Rash; Est. Patient Christine Gonzales PA [address] [place] [address] Kimo Fournier MD [address] [place] [address], [place] [address] Referral ID Status Reason Start Date Expiration Date V isits Requested Visits Authorized [id number] Closed Consult, Test & Treat 04/05/2022 04/05/2023 1 1 Encounter Details Date Type Department Care Team (Late st Contact Info) Description 04/10/2022 9:30 AM EST Office Visit Dermatology at [address] [address] Kimo Fournier MD [address] [place] [address], [facility] [place], [place] [id number] Allergic contact dermatitis, unspecified trigger Social History Tobacco Use Types Packs/Day Years [...] as of this encounter Progress Notes * Kimo Fournier MD - 04/10/2022 9:30 AM EST Problem: Widespread dermatitis Porsha presents today for a widespread dermatitis is been a problem now for just under a month. Prabhu been 3x to urgent care in [place] and 3 times to the ER [facility]. He works at [employer] and states has been no change in his regular regimen of medications or personal skin care products. He washes with Capeco soap, he uses spine shampoo. He washes his clothes with arm andHammer fragranced detergent and use balance fragranced dryer sheets. 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 He has been through short courses of prednisone use topical corticosteroid creams and small tubes, and was given antibiotic courses and most recently cephalexin. He states that deep rash began after 6 days of Augmentin prescribed for worsening URI symptoms on March 04. He presented there again to the ER on March 14 with a rash. He has a hot tub but has not been using this at home since the rash began. He states that while the rash is still widespread and itchy it does seem to be improving somewhat. The patient is seen in c onsultation today for Christine Gonzales PA-C Physical examination reveals a pleasant 52-year-old gentleman who has diffuse spongiotic dermatitiswidely and can fluidly around the abdomen and back. He has patchy involvement on the ankles and legs some mild involvement also on his forearms. His face and scalp are not involved. Assessment plan: Widespread spongiotic dermatitis, likely due to to his course of Augmentin. 1. Augmentin has been added to the list of the patient's allergies. 2. Discussed sensitive skin care precautions and recommend use of Dove or Ivory, recommend using Toni [employer] Toni's baby shampoo, avoid fragranced detergent and fabric softeners but switch to fragrance free variety 3. Begin triamcinolone 0.1% cream apply on a twice daily basis to affected areas. Dispense 1 pound jar with 1 refill. He had been only given small tubes of this previously, in inadequate amounts to cover his area of involvement. 4. Begin prednisone 20 mg take 4 p.o. every morning for 3 days, then 3 p.o. every morning for 1 week then 2 p.o. every morning for 1 week, then 1 p.o. every morning for 1 week then 1 p.o. q. oh day for 1 week then discontinue. Dispense 1 course. 5. Continue to abstain from hot tub use at this time. Discontinue oral cephalexin 6. In shower do not scrub skin with washcloth do not exfoliate dry skin, use mild soaps noted above 7. I have asked the patient to contact us with a progress report in 2 weeks time. cc: MD Christine Banks PA-C documented in this encounter Plan of Treatment Upcoming Encounters Date Type Department Care Team (Late st Contact Info) Description 10/03/2023 2:00 PM EDT Office [place] [address] Carlos Veloz MD [facility] [place] [address] documented as of this encounter Visit Diagnoses Diagnosis Allergic contact dermatitis, unspecified trigger documented in this encounter Care Teams Log Clerk Relationship Specialty Start Date End Date Mirian Malcolm MD [address] [place] [address] PCP - General Family Medicine 08/13/18 documented as of this encounter
--- OUTSIDE RECORDS SUMMARY | 2023-10-03 01:23 | XMS_ITS | Encounter Summary ---
Author Organization [facility] Address [facility] [place] [address] Care Team Providers Care Provisioning Specialist Name Role Phone Mirian Malcolm MD Primary Care Provider [phone] Encounter Details Date Type Department Care Team (Late st Contact Info) Description 08/18/2018 Orders [place] [phone] Karen Alfred PA [facility] DR ORTHOPAED[place] [address] Social History Tobacco Use Types Packs/Day Years [...] 2:00 PM EDT Office [place] [phone] Carlos Veloz MD [facility] DR ORTHOPAED[place] [address] documented as of this encounter Visit Diagnoses Not on filedocumented in this encounter Care Teams Provisioning Specialist Relationship Specialty Start Date End Date Mirian Malcolm MD [address] [place] [address] PCP - General Family Medicine 08/13/18 documented as of this encounter
--- OUTSIDE RECORDS SUMMARY | 2023-10-03 01:23 | XMS_ITS | Encounter Summary ---
Author Organization [facility] Address [facility] [place] [address] Care Team Providers Care Overlock Waistline Joiner Name Role Phone Mirian Malcolm MD Primary Care Provider [phone] Encounter Details Date Type Department Care Team (Late st Contact Info) Description 06/07/2022 Telephone Dermatology at [address] [address] Eileen King LPN Social History Tobacco Use Types Packs/Day Years [...] encounter Miscellaneous Notes * Telephone Encounter - Eileen King LPN - 06/07/2022 3:25 PM EDT Patient reports he finished Prednisone about two weeks ago. The areas were almost gone. He now has new spots all over his body. Very itchy. Applying TAC up to three times daily with no effect. Currently Using Dove/Ivory, not using hot tub, discontinued cephalexin and stopped scrubbing his body in the shower. Advised patient Dr. Fournier has recommended to Mirian Malcolm to hold hydrochlorothiazide for two weeks. We have contacted the [facility] and she will be back in the office tomorrow. Dr. Fournier recommends patient continue applying TAC until we hear from his PCP. Patient voiced understanding. We will contact patient when PCP has made her decision. Called [facility]. PCP wants patient to stop Lisinopril/Hctz. They will prescribe Lisinopril and want patient to set up two week follow up. Called patient. Reviewed PCP request. Patient must call PCP to set up appointment prior to prescription written. He will call PCP today. He will contact Dr. Fournier beginning of next week with update. documented in this encounter Plan of Treatment Upcoming Encounters Date Type Department Care Team (Late st Contact Info) Description 10/03/2023 2:00 PM EDT Office [place] [address] Carlos Veloz MD [facility] [place] [address] documented as of this encounter Visit Diagnoses Not on filedocumented in this encounter Care Teams Overlock Waistline Joiner Relationship Specialty Start Date End Date Mirian Malcolm MD [address] [place] [address] PCP - General Family Medicine 08/13/18 documented as of this encounter
--- OUTSIDE RECORDS SUMMARY | 2023-10-03 01:23 | XMS_ITS | Encounter Summary ---
Author Organization [facility] [place] [address] Care Team Providers Care Flexible Shaft Winder Name Role Phone Mirian Malcolm MD Primary Care Provider [phone] Encounter Details Date Type Department Care Team (Late st Contact Info) Description 07/05/2023 12:10 AM EDT Ancillary Procedure [place] [address] Carlos Veloz MD [facility] [place] [address] Social History Tobacco Use Types Packs/Day Years [...] 2:00 PM EDT Office [place] [phone] Carlos Veloz MD [facility] [place] [address] documented as of this encounter Procedures Procedure Name Priority Date/Time Associated Diagnosis Comments FILM LIBRARY STORAGE ONLY DX FOOT Routine 07/05/2023 12:10 AM EDT documented in this encounter Results * Film Library- Storage Only DX Foot (07/05/2023 12:10 AM EDT) Narrative [facility]ANKA - 07/31/2023 1:16 PM EDT This exam is auto-finalizing. It's purpose is for storage only. Carlos Veloz MD IMG FILM LIBRARY ORD ERABLES [place], [place] documented in this encounter Visit Diagnoses Not on filedocumented in this encounter Care Teams Flexible Shaft Winder Relationship Specialty Start Date End Date Mirian Malcolm MD [address] [place] [address] PCP - General Family Medicine 08/13/18 documented as of this encounter
--- OUTSIDE RECORDS SUMMARY | 2023-10-03 01:24 | XMS_ITS | Encounter Summary ---
Author Organization [facility] Address [facility] [place] [address] Care Team Providers Care Dam Tender Name Role Phone Monica Paige Primary Care Provider [phone] Encounter Details Date Type Department Care Team (Late st Contact Info) Description 02/19/2018 Orders Only [place] [address] Cha Moffett RN Bleeding from varicose vein Social History Tobacco Use Types Packs/Day Years [...] 2:00 PM EDT Office [place] [phone] Carlos Veloz MD [facility] [place] [address] documented as of this encounter Results * Venous Valvular Incomp, Bilat Legs (02/20/2018 9:04 AM EST) VB Text Report Department: Vascular Surgery Lab Patient: [id number] ([place]) CPT: 60001 ICD10: I83.899;I83.813;I8 7.2 Referring Physician: RAÚL FARMER ?? Indications: Patient with bilateral varicose veins, ? venous insufficiency ICD10 Diagnosis Code: I83.899 Findings: Right ?Reflux?Diameter (mm) ??Depth (mm) ?? Common Femoral Vein ??Reflux ? Femoral Vein ? Competent ? Popliteal ?Competent ? GSV, Near SFJ ?Reflux ? 6.8 ?10.7 ?? GSV, Proximal Thigh ??Reflux ? 5.7 ?13.8 ?? GSV, Mid Thigh ? Competent ?3.1 ?13.9 ?? GSV, Distal Thigh ?Competent ?2.0 ?12.4 ?? GSV, ??Knee ? Competent ?2.4 ? 5.1 ?? GSV Prox Calf ?Reflux ? 2.2 ? 3.5 ?? GSV, Mid Calf ?Reflux ? 3.3 ? 4.2 ?? GSV, Distal Calf ? Reflux ? 2.7 ? 3.5 ?? SSV ?Competent ? Left ? Reflux? Diameter (mm) ??Depth (mm) ?? Common Femoral Vein ??Reflux ? Femoral Vein ? Competent ? Popliteal ?Competent ? GSV, Near SFJ ?Reflux ?6.6 ? 8.6 ?? GSV, Proximal Thigh ??Competent ? 2.6 ?15.2 ?? GSV, Mid Thigh ? Not Identified ? GSV, Distal Thigh ?Not Identified ? GSV, ??Knee ? Not Identified ? GSV Prox Calf ?Not Identified ? GSV, Mid Calf ?Reflux ?4.1 ? 4.7 ?? GSV, Distal Calf ? Reflux ?2.6 ? 6.8 ?? SSV ?Competent ? Interpretation: RIGHT: There is reflux in the common femoral vein (>2.0 seconds) consistent with isolated deep venous valvular incompetence. There is reflux in the great saphenous vein at the saphenofemoral junction to proximal thigh and then again through the calf (> 2.1 seconds) consistent with superficial venous valvular incompetence. The remainder of the great saphenous vein (GSV) is competent. There is a large varicose vein associated with the GSV in the proximal thigh which travels down the medial thigh to the anterior knee. There is also a varicose vein associated with the GSV in the proximal calf. LEFT: Thrombosed varicose veins noted at the medial knee. There is reflux in the common femoral vein (>2.0 seconds) consistent with isolated deep venous valvular incompetence. There is reflux in the great saphenous vein at the saphenofemoral junction and then again at the mid to distal calf (>2.3 seconds) consistent with superficial venous valvular incompetence. The great saphenous vein (GSV) in the proximal thigh is competent. There is a cluster of varicose veins in the groin to very proximal thigh. The GSV leaves the fascia in the prox/mid thigh and becomes varicose and not clearly identified through the remainder of the thigh, knee, or proximal calf. GSV is reidentified in the mid calf. There is reflux in the anterior saphenous vein (>2.0 seconds) consistent with superficial venous valvular incompetence. The anterior saphenous vein leaves the fascia in the prox/mid thigh and becomes varicose. No evidence of bilateral lower extremity deep vein thrombus. Comparison: ??No previous study in our vascular lab database for comparison. Electronically Signed by: RAÚL FARMER on 2018-02-21 08:05:13 AM [facility] VB Text Report End of Report [facility] 02/20/2018 9:04 AM EST Raúl Farmer MD VASCULAR ORDERABLES [facility] documented in this encounter Visit Diagnoses Diagnosis Bleeding from varicose vein Varicose veins of lower extremities with other complications documented in this encounter Care Teams Dam Tender Relationship Specialty Start Date End Date Monica Paige PA [address] [place] [address] PCP - General Family Medicine 05/14/16 08/12/18 documented as of this encounter
--- OUTSIDE RECORDS SUMMARY | 2023-10-03 01:24 | XMS_ITS | Encounter Summary ---
Author Organization [facility] [place] [address] Care Team Providers Care Parent Partner Name Role Phone Mirian Malcolm MD Primary Care Provider [phone] Encounter Details Date Type Department Care Team (Late st Contact Info) Description 08/13/2018 2:30 AM EDT Ancillary Procedure [place] [phone] Social History Tobacco Use Types Packs/Day Years [...] 2:00 PM EDT Office [place] [address] Carlos Veloz MD [facility] [place] [address] documented as of this encounter Procedures Procedure Name Priority Date/Time Associated Diagnosis Comments FILM LIBRARY STORAGE ONLY CT CHEST ABDOMEN PELVIS STAT 08/13/2018 2:27 AM EDT documented in this encounter Results * Film Library- Storage Only CT Chest Abdomen Pelvis (08/13/2018 2:27 AM EDT) Narrative [facility] - 08/13/2018 2:27 AM EDT This exam is auto-finalizing. It's purpose is for storage only. Williams Bridges MD IM FILM LIBRARY ORD ERABLES [facility] [place], [place] documented in this encounter Visit Diagnoses Not on filedocumented in this encounter Care Teams Parent Partner Relationship Specialty Start Date End Date Mirian Malcolm MD [address] [place] [address] PCP - General Family Medicine 08/13/18 documented as of this encounter
--- OUTSIDE RECORDS SUMMARY | 2023-10-03 01:24 | XMS_ITS | Encounter Summary ---
Author Organization [facility] Address [facility] [place] [address] Care Team Providers Care Director Of Social Media Marketing Name Role Phone Monica Paige Primary Care Provider [phone] Encounter Details Date Type Department Care Team (Late st Contact Info) Description 06/04/2016 Orders [place] [address] Srikanth Anderson RN PAD (peripheral artery disease); Varicose vein of leg Social History Tobacco Use Types Packs/Day Years [...] 2:00 PM EDT [place] [address] Carlos Veloz MD [facility] [place] [address] documented as of this encounter Visit Diagnoses Diagnosis PAD (peripheral artery disease) Peripheral vascular disease, unspecified Varicose vein of leg Asymptomatic varicose veins documented in this encounter Care Teams Director Of Social Media Marketing Relationship Specialty Start Date End Date Monica Paige PA [address] [place] [address] PCP - General Family Medicine 05/14/16 08/12/18 documented as of this encounter
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
--- OUTSIDE RECORDS SUMMARY | 2023-10-03 01:24 | XMS_ITS | Encounter Summary ---
Author Organization [facility] Address [facility] [place] [address] Care Team Providers Care Hand Spray Operator Name Role Phone Monica Paige Primary Care Provider [phone] Encounter Details Date Type Department Care Team (Late st Contact Info) Description 02/20/2018 Orders [place] [address] Brittny Victor, LARRY OPERATOR Screening for AAA (abdominal aortic aneurysm) Social History Tobacco Use Types Packs/Day Years [...] 2:00 PM EDT Office [place] [address] Carlos Veloz MD [facility] [place] [address] documented as of this encounter Visit Diagnoses Diagnosis Screening for AAA (abdominal aortic aneurysm) Screening for other and unspecified cardiovascular conditions documented in this encounter Care Teams Hand Spray Operator Relationship Specialty Start Date End Date Monica Paige PA [address] [place] [address] PCP - General Family Medicine 05/14/16 08/12/18 documented as of this encounter
--- OUTSIDE RECORDS SUMMARY | 2023-10-03 01:24 | XMS_ITS | Encounter Summary ---
Author Organization [facility] Address [facility] [place] [address] Care Team Providers Care Instrumentation Designer Name Role Phone Monica Paige Primary Care Provider [phone] Reason for Visit * Consultation (Routine) - Closed Specialty Diagnoses / Procedures Referred By Giles t Referred To Contact Neurology Diagnoses B LE neuropathy- pls try to coord with Vasc appt Monica Paige PA [address] [place] [address] [facility] [address] [place] [address] Referral ID Status Reason Start Date Expiration Date V isits Requested Visits Authorized [id number] Closed Connection Center 05/14/2016 05/14/2017 1 1 Encounter Details Date Type Department Care Team (Late st Contact Info) Description 06/27/2016 8:00 AM EDT [place] [id number] Cassy Lorenz MD [facility] [place] [address] Neuropathy Social History Tobacco Use Types Packs/Day Years [...] Sign Reading Time Taken Comments Blood Pressure 166/107 06/27/2016 7:53 AM EDT Pulse 74 06/27/2016 7:53 AM EDT Temperature - - Respiratory Rate - - Oxygen Saturation - - Inhaled Oxygen Concentration - - Weight 108.8 kg (239 lb 12.8 oz) 06/27/2016 7:53 AM EDT Height 182.9 cm (6') 06/27/2016 7:53 AM EDT repo rted Body Mass Index 32.52 06/27/2016 7:53 AM EDT documented in this encounter Progress Notes * Cassy Lorenz MD - 06/27/2016 8:00 AM EDT Subjective: Porsha Park is a 46 y.o. male referred by Monica Paige for evaluation of possible neuropathy. Referral request: bilateral LE neuropathy He describes symptoms of sudden onset severe and excruciating pain in the right leg after hearing a pop in the hip. This was diagnosed as a muscle tear. The pain was without numbness. This is relating to back ground medical events. The symptom that prompted his visit today is numbness associated with dissociated pain in his feet. He has a 6-7 year history of numbness in his feet. This was in the setting of EtOH use but also with some question of glucose dysglycemia. He apparently has had a fasting glucose was done recently. Numbness began in the arches of the feet. He feels like the neuropathy is changed. He has some concerns about th possibility of muscular involvement. His ankles are more stiff than they have been in the past. He is however able to use his legs. He uses GBP for control of discomfort. He doesn't feel like this has been helping him. LOCATION: feet bilaterally, extending up to mid-leg PAIN DESCRIPTION: numbness PRESENT: numbness present all the time; has been extending up his leg and now associated with some sensation of weakness in the leg as well. PAIN INCREASED BY: Numbness is constant; however he experiences marked pain with minimal stimulation such as the brush of a broom over his feet, or stepping on a small object. PAIN DECREASED BY: none Outside reports reviewed: lab reports, office notes, radiology reports and referral letter/letters. Patient's medications, allergies, past medical, surgical, social and family histories were reviewedand updated as appropriate. Review of Systems Pertinent items are noted in HPI. Objective: BP (!) 166/107 (BP Location (NBP): Right arm, Patient Position: Sitting, BP Cuff Sizes: Adult (25-34 cm)) Pulse 74 Ht 182.9 cm (6') Comment: reported Wt (!) 108.8 kg (239 lb 12.8 oz) BMI 32.52 kg/m2 LOWER EXTREMITY NEUROLOGICAL EVALUATION: MOTOR: Manual muscle testing to the bilateral lower extremities was normal with the exception of toe flexion and inability to fan the toes. ?Pertinent positives: NONE SENSORY:?A) Testing of sharp and dull sensation was completed to the bilateral L1-S2?dermatomal distributions. ?Pertinent positives: length dependent loss ?B) Testing of vibratory sensation was then completed. ?Pertinent positives: reduced in a length dependent pattern; 5 at the toe, 6 at the ankle, 7 at the knee. No proprioceptive loss proximally. DEEP TENDON REFLEXES: ?? Left?? Right?? Patellar reflex (L4)?? 1+ tr?? Achilles reflex (S1)?? 1+?? tr?? GAIT: normal; able to rise from seated position without the use of his arms. Able to rise on heels and toes. Romberg negative. SCREENING EXAMINATIONS FOR CERVICAL MYELOPATHY: ?Fruit Packer Face And Fill strength: Grossly normal ?Hand atrophy: None ? Assessment: NCS/EMG: The right sural SNAP is absent. The left sural SNAP amplitude is reduced. The right peroneal motor response amplitude, distal motor latency and conduction velocity is preserved and symmetricwith the left peroneal motor response amplitude. The right tibial motor response amplitude and distal motor latency is preserved but the left tibial motor response amplitude is half that on the right. Late response latencies are preserved. Needle EMG of distal muscles of the left lower extremity were normal with the exception of rare positive sharp waves and fibrillation potentials in the EDB associated with long duration, polyphasic motor units that demonstrated mildly reduced recruitment. Theabductor hallucis muscle revealed 1+ fibrillation potentials and positive sharp waves bilaterally. IMPRESSION: Abnormal study. 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 The tibial asymmetry is of uncertain clinical significance given the absence of localizing needle EMG findings. Clinical correlation is recommended. CLINICAL CORRELATION: Porsha Park is a 46 y.o. male who presents for evaluation of neuropathy. His electrodiagnostic study is consistent with his clinical examination showing signs of distal axonal loss with trace ankle jerks, length-dependent loss of vibration my and difficulty fanning his toes. This is associated with a mild to moderate axonal, sensory predominant neuropathy. Also noted on his electrodiagnostic study was asymmetry of the tibial motor response. Although this could be consistent with a tibial mononeuropathy, his needle EMG study was not localizing. The study argues a against S1 radiculopathy and this is not consistent with his clinical exam. Screen for impaired glucose tolerance If screening labs negative, consider testing for SCN9A; EtOH cessation CASSY LORENZ I spent 40 minutes of face-face time with the patient, with 21 minutes spent in counseling and coordination of care, excluding the time spent in performing electrodiagnostic studies. documented in this encounter Plan of Treatment Upcoming Encounters Date Type Department Care Team (Late st Contact Info) Description 10/03/2023 2:00 PM EDT Office Visit Orthopaedics at [place] [address] Carlos Veloz MD [facility] [place] [address] documented as of this encounter Procedures Procedure Name Priority Date/Time Associated Diagnosis Comments EXTRACTABLE NUCLEAR ANTIGEN (SHAYE) AB Routine 06/27/2016 9:31 AM EDT Neuropathy IMMUNOGLOBULINS, QUANTITATIVE Routine 06/27/2016 9:31 AM EDT IMMUNOFIXATION ELECTROPHORESIS, SERUM Routine 06/27/2016 9:31 AM EDT HEMOGRAM Routine 06/27/2016 9:31 AM EDT Neuropathy DIFFERENTIAL, AUTOMATED Routine 06/28/19 17 9:31 AM EDT Neuropathy METHYLMALONIC ACID, SERUM Routine 06/27/2016 9:31 AM EDT Neuropathy CBC (WITH DIFF) Routine 06/27/2016 9:31 AM EDT Neuropathy MIKEY ANTIBODY SCREEN Routine 06/27/2016 9 :31 AM EDT Neuropathy TSH Routine 06/27/2016 9:31 AM EDT Neuropathy VITAMIN B6 Routine 06/27/2016 9:31 AM EDT Neuropathy PROTEIN ELECTROPHORESIS, SERUM Routine 06/27/2016 9:31 AM EDT Neuropathy VITAMIN B12 Routine 06/27/2016 9:31 AM EDT Neuropathy COMPREHENSIVE METABOLIC PANEL Routine 06/27/2016 9:31 AM EDT Neuropathy documented in this encounter Results * (ABNORMAL) Immunoglobulins, Quantitative (06/27/2016 9:31 AM EDT) Immunoglobulin G 613(L) 700 - 1,600 mg/dL [facility] IgA 223 70 - 400 mg/dL [facility] IgM 17(L) 40 - 230 mg/dL [facility] Blood specimen (specimen) Venous Draw / Unknown 06/27/2016 9:31 AM EDT 06/27/2016 10:04 AM EDT Narrative Resulting Agency Comment Spec In Lab Cassy Lorenz MD CHEMISTRY ORDERABLE S Performing Organization Address [facility] Co de Phone Number [facility] [place] [address] * Immunofixation Electrophoresis (06/27/2016 9:31 AM EDT) [facility] Immunofixation Interpretation See Note [facility] Comment: GOKUL shows no evidence of a monoclonal immunoglobulin. Jermaine Anand MD 06/28/16 [facility] Pathology Please see scanned report in Chart Review under the [facility] Laboratory Heading. Blood specimen (specimen) Venous Draw / Unknown 06/27/2016 9:31 AM EDT 06/27/2016 10:04 AM EDT Narrative Resulting Agency Comment Spec In Lab Cassy Lorenz MD CHEMISTRY ORDERABLE S Performing Organization Address [facility] Co de Phone Number [facility] [place] [address] * (ABNORMAL) Differential, Automated (06/27/2016 9:31 AM EDT) Pathologist [facility] Neutrophil % 70.9 % [facility] Neutrophil Absolute 7.83(H) 1.70 - 6.10 x10(3)/mc L [facility] Lymph % 20.5 % [facility] Lymphocytes Abs 2.3 0.9 - 3.2 x10(3)/mc L [facility] Monocyte % 6.2 % [facility] Monocyte Abs 0.7 0.3 - 0.9 x10(3)/mc L [facility] Eos % 1.4 % [facility] Eosinophils Abs 0.2 0.0 - 0.4 x10(3)/[facility] Basophil % 0.5 % [facility] Baso Absolute 0.1 0.0 - 0.1 x10(3)/[facility] Immature Gran % 0.50 % [facility] Comment: Immature granulocytes(IG's)percentage and absolute count will include metamyelocytes, myelocytes, and promyelocytes. Blood smears from CBCs yielding IG's will be scanned manually for concordance. If this scan disagrees with the automated IG or if promyelocytes are noted, a manual differential will be performed. Immature Gran Absolute 0.05(H) 0.00 - 0.04 x10(3)/[facility] Blood specimen (specimen) 06/27/2016 9:31 AM EDT 06/27/2016 9:38 AM EDT Narrative Resulting Agency Comment Spec In Lab Cassy Lorenz MD HEMATOLOGY ORDERABL ES [facility] [place] [address] * (ABNORMAL) Hemogram (06/27/2016 9:31 AM EDT) White Blood Cell 11.0(H) 4.0 - 9.5 x10(3)/[facility] Red Blood Cell 5.22 4.58 - 5.54 x10(6)/[facility] Hemoglobin 17.2(H) 13.7 - 16.5 gm/dL [facility] Hematocrit 49.7(H) 40.5 - 48.5 % [facility] Mean Cell Volume 95.2(H) 82.9 - 93.1 fL [facility] Mean Cell Hemoglobin 33.0(H) 27.5 - 32.1 pg [facility] Mean Cell Hemoglobin Concentration 34.6 32.0 - 35.7 gm/dL [facility] Platelet 227 145 - 357 x10(3)/mc L [facility] RDW Standard Deviation 41.1 36.0 - 45.0 fL [facility] RDW coefficient of variation 11.9 11.4 - 13.8 % [facility] Mean Platelet Volume 11.8 7.6 - 12.9 fL [facility] NRBC% auto 0.0 % [facility] NRBC Absolute 0.000 0.000 - 0.000 x10(3)/mc L [facility] Blood specimen (specimen) 06/27/2016 9:31 AM EDT 06/27/2016 9:38 AM EDT Narrative Resulting Agency Comment Spec In Lab Cassy Lorenz MD HEMATOLOGY ORDERABL ES Performing Organization Address [facility] Co de Phone Number [facility] [place] [address] * TSH (06/27/2016 9:31 AM EDT) Thyroid Stimulating Hormone 0.93 0.27 - 4.20 mcIU/mL [facility] Blood specimen (specimen) 06/27/2016 9:31 AM EDT 06/27/2016 9:38 AM EDT Narrative Resulting Agency Comment Spec In Lab Cassy Lorenz MD CHEMISTRY ORDERABLE S Performing Organization Address [facility] de Phone Number [facility] [place] [address] * Extractable Nuclear Antigen (SHAYE) Ab (06/27/2016 9:31 AM EDT) SHAYE Ab Test ?Result ?Flag ??Unit ??RefValue Ab to Extractable Nuclear Ag Eval,S ??SS-A/Ro Ab, IgG, S ?<0.2 ?U ? <1.0 (Negative) ??SS-B/La Ab, IgG, S ?0.2 ? U ? <1.0 (Negative) ??Sm Ab, IgG, S ? <0.2 ?U ? <1.0 (Negative) ??MANAGER RADIO Ab, IgG, S ?<0.2 ?U ? <1.0 (Negative) ??Scl 70 Ab, IgG, S ? <0.2 ?U ? <1.0 (Negative) ??Larisa 1 Ab, IgG, S ? <0.2 ?U ? <1.0 (Negative) ?Test Performed by: ?[facility] ?[address] [place], [place] [id number] [place] [address] LABORATORY Blood specimen (specimen) 06/27/2016 9:31 AM EDT 06/27/2016 1:00 PM EDT Narrative Resulting Agency Comment Spec In Lab Cassy Lorenz MD LAB SEND OUT ORDERA BLES Performing Organization Address City/[facility]/ZIP Co de Phone Number [facility] [place] [address] * MIKEY (06/27/2016 9:31 AM EDT) MIKEY Neg Neg [facility] Blood specimen (specimen) 06/27/2016 9:31 AM EDT 06/27/2016 11:39 AM EDT Narrative Resulting Agency Comment Spec In Lab Cassy Lorenz MD LAB SEND OUT ORDERA BLES Performing Organization Address [facility] de Phone Number [facility] [place] [address] * Vitamin B6 (06/27/2016 9:31 AM EDT) Pathologist [facility] Vitamin B6 (JUNE) 15 5 - 50 mcg/L [facility] Comment: ADDITIONAL INFORMATION This test was developed and its performance characteristics determined by [facility] in a manner consistent with CLIA requirements. This test has not been cleared or approved by the U.S. Food and Drug Administration. Test Performed by: [facility] - [address] [address] Blood specimen (specimen) 06/27/2016 9:31 AM EDT 06/27/2016 10:50 AM EDT Narrative Resulting Agency Comment Spec In Lab Cassy Lorenz MD LAB SEND OUT ORDERA BLES Performing Organization Address [facility] Co de Phone Number [facility] [place] [address] * Methylmalonic acid, serum (06/27/2016 9:31 AM EDT) Pathologist [facility] Methylmalonic Acid (MAY) 0.17 <=0.40 nmol/mL [facility] Comment: ADDITIONAL INFORMATION This test was developed and its performance characteristics determined by [facility] in a manner consistent with CLIA requirements. This test has not been cleared or approved by the U.S. Food and Drug Administration. Test Performed by: [facility] - [address] [address] Blood specimen (specimen) 06/27/2016 9:31 AM EDT 06/27/2016 1:00 PM EDT Narrative Resulting Agency Comment Spec In Lab Cassy Lorenz MD LAB SEND OUT ORDERA BLES Performing Organization Address [facility]/ZIP Co de Phone Number [facility] [place] [address] * Vitamin B12 (06/27/2016 9:31 AM EDT) Vitamin B12 497 207 - 974 pg/mL [facility] Blood specimen (specimen) 06/27/2016 9:31 AM EDT 06/27/2016 9:38 AM EDT Narrative Resulting Agency Comment Spec In Lab Cassy Lorenz MD CHEMISTRY ORDERABLE S Performing Organization Address [facility] Co de Phone Number [facility] [place] [address] * (ABNORMAL) Protein Electrophoresis, serum (06/27/2016 9:31 AM EDT) Total Prot Electrophoresis 6.4 6.1 - 8.0 gm/dL [facility] Albumin Electrophoresis 4.72 3.60 - 6.00 gm/dL [facility] Alpha 1 Globulin 0.15 0.10 - 0.30 gm/dL [facility] Alpha 2 Globulin 0.54 0.40 - 0.90 gm/dL [facility] Beta Globulin 0.55 0.50 - 1.00 gm/dL [facility] Gamma Globulin 0.44(L) 0.50 - 1.30 gm/dL [facility] M1 Band Comments Below [facility] SPEP Comments See Note [facility] Comment: 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 Immunofixation (GOKUL) and quantitative immunoglobulin (ABDIFATAH) testing will be performed on this sample. Blood specimen (specimen) 06/27/2016 9:31 AM EDT 06/27/2016 9:38 AM EDT Narrative Resulting Agency Comment Spec In Lab Cassy Lorenz MD CHEMISTRY ORDERABLE S [facility] [place] [address] * (ABNORMAL) Comprehensive metabolic panel (non-fasting) (06/27/2016 9:31 AM EDT) Glucose 133 65 - 199 mg/dL [facility] Comment:Diabetes: >=200 mg/d L plus symptoms Blood Urea Nitrogen 10 10 - 20 mg/dL [facility] Creatinine 0.74(L) 0.80 - 1.50 mg/dL [facility] Comment: Please note that the pediatric reference intervals supplied above were not validated at [facility]. Results from pediatric patients should be interpreted in conjunction to the patient's age, height and muscle mass. Sodium 141 135 - 145 mmol/L [facility] Potassium 3.8 3.5 - 5.0 mmol/L [facility] Comment: Please note: ??Patients with WBC >100,000 may have falsely elevated Potassium levels. ??For accurate Potassium quantification in these patients send serum separator tube (gold top) for subsequent determinations. ??Contact the Clinical Chemistry Laboratory if there are any questions. Chloride 101 98 - 107 mmol/L [facility] Carbon Dioxide 26 22 - 31 mmol/L [facility] Anion Gap 14 5 - 15 mmol/L [facility] Calcium 9.0 8.5 - 10.5 mg/dL [facility] Protein, Total 6.7 6.1 - 8.0 gm/dL [facility] Albumin 4.5 3.2 - 5.2 gm/dL [facility] Aspartate Aminotransferase 13 0 - 39 unit/L [facility] Alanine Aminotransferase 21 0 - 55 unit/L [facility] Alkaline Phosphatase 76 40 - 120 unit/L [facility] Bilirubin, Total 0.5 0.2 - 1.3 mg/dL [facility] Bilirubin, Direct 0.1 0.0 - 0.3 mg/dL [facility] Est Glomerular Filtration Rate >60 >=60 [facility] Comment: This estimated GFR (eGFR) value was calculated using the MDRD equation which has been validated on patients between the ages of 18 and 70. The MDRD should not be used to assess kidney function in patients < 18 years of age or in patients with extremes of body mass, or in patients with acute kidney failure. This value should be multiplied by 1.2 for patients. For further information please copy and paste the following links into your internet browser. [email or web address] Blood specimen (specimen) 06/27/2016 9:31 AM EDT 06/27/2016 9:38 AM EDT Narrative Resulting Agency Comment Spec In Lab Cassy Lorenz MD CHEMISTRY ORDERABLE S [facility] [place] [address] documented in this encounter Visit Diagnoses Diagnosis Neuropathy Mononeuritis of unspecified site documented in this encounter Care Teams Instrumentation Designer Relationship Specialty Start Date End Date Monica Paige PA [address] [place] [address] PCP - General Family Medicine 05/14/16 08/12/18 documented as of this encounter
--- OUTSIDE RECORDS SUMMARY | 2023-10-03 01:24 | XMS_ITS | Encounter Summary ---
Author Organization [facility] [place] [address] Care Team Providers Care Food Concession Manager Name Role Phone Mirian Malcolm MD Primary Care Provider Encounter Details Date Type Department Care Team (Late st Contact Info) Description 08/13/2018 7:00 AM EDT Ancillary Procedure [place] [address] Social History Tobacco Use Types Packs/Day Years [...] 2:00 PM EDT Office Visit [place] [address] Carlos Veloz MD [facility] DR ORTHOPAEDIC [place] [address] documented as of this encounter Procedures Procedure Name Priority Date/Time Associated Diagnosis Comments REQUEST FOR 2ND READ CT HEAD AND SPINE STAT 08/13/2018 6:41 AM EDT documented in this encounter Results * Request For 2nd Read CT Head And Spine (08/13/2018 6:41 AM EDT) Anatomical Region Laterality Modality Head, C-spine, T-spine, L-spine SO Impressions 08/13/2018 8:04 AM EDT 1. ??No acute intracranial hemorrhage or extra-axial collection. 2. ??No acute fracture or traumatic malalignment of the cervical spine. I have personally reviewed the image(s) and the residents interpretation and agree with the findings, Brianne Hathaway at 08/13/2018 8:04 AM Thank you for letting us participate in the care of this patient. For questions regarding this report, please contact the number below. ? Narrative 08/13/2018 8:04 AM EDT EXAMINATION: REQUEST FOR 2ND READ CT HEAD AND SPINE CLINICAL HISTORY: Trauma; What Modality is the exam? CT Scan; Body Part (please add comments as necessary): Head/C-spine; I believe a reinterpretation of this exam may alter care of Patient. Yes TECHNIQUE: Reinterpretation of CT of the head and cervical spine performed without with intravenous contrast. Study performed at [facility] at 0055 hours, August 13, 2018 COMPARISON: Cervical spine radiographs dated 06/30/2012. FINDINGS: There is no acute intracranial hemorrhage or extra-axial collection. The alaniz-white differentiation is preserved. A CSF isodense lesion in the left anterior cranial fossa is compatible with a left medial cranial fossa arachnoid cyst. Alaniz-white differentiation is preserved. There is no mass or mass effect. The ventricles are normal. The basilar cisterns are patent. There is no calvarial fracture or significant extracalvarial hematoma. Orbits are normal. Minimal mucosal opacification of the ethmoid air cells. The other visualized paranasal sinuses and mastoid air cells are clear. The craniocervical junction is intact. There is straightening of the normal cervical lordosis. Vertebral body heights, facet joints and posterior elements are well aligned and without acute fracture or traumatic malalignment. No paravertebral hematoma. Procedure Note Brianne Hathaway MD - 08/13/2018 EXAMINATION: REQUEST FOR 2ND READ CT HEAD AND SPINE CLINICAL HISTORY: Trauma; What Modality is the exam? CT Scan; Body Part(please add comments as necessary): Head/C-spine; I believe a reinterpretation ofthis exam may alter care of Patient. Yes TECHNIQUE: Reinterpretation of CT of the head and cervical spine performed withoutwith intravenous contrast. Study performed at [facility] at 0055 hours, August 13, 2018 COMPARISON: Cervical spine radiographs dated 06/30/2012. FINDINGS: There is no acute intracranial hemorrhage or extra-axial collection. The alaniz-white differentiation is preserved. A CSF isodense lesion in theleft anterior cranial fossa is compatible with a left medial cranial fossaarachnoid cyst. Alaniz-white differentiation is preserved. There is no mass or masseffect. The ventricles are normal. The basilar cisterns are patent. There is no calvarial fracture or significant extracalvarial hematoma.Orbits are normal. Minimal mucosal opacification of the ethmoid air cells. Theother visualized paranasal sinuses and mastoid air cells are clear. The craniocervical junction is intact. There is straightening of thenormal cervical lordosis. Vertebral body heights, facet joints and posteriorelements are well aligned and without acute fracture or traumatic malalignment.No paravertebral hematoma. IMPRESSION 1. No acute intracranial hemorrhage or extra-axial collection. 2. No acute fracture or traumatic malalignment of the cervical spine. I have personally reviewed the image(s) and the residents interpretationand agree with the findings, Brianne Hathaway at 08/13/2018 8:04 AM Thank you for letting us participate in the care of this patient. Forquestions regarding this report, please contact the number below. Caesar Shirley MD IMG OUTSIDE INTER PRETATION ORDERABLES documented in this encounter Visit Diagnoses Not on filedocumented in this encounter Care Teams Food Concession Manager Relationship Specialty Start Date End Date Mirian Malcolm MD [address] [place] [address] PCP - General Family Medicine 08/13/18 documented as of this encounter
--- OUTSIDE RECORDS SUMMARY | 2023-10-03 01:24 | XMS_ITS | Encounter Summary ---
Author Organization [facility] Address [facility] [place] [address] Care Team Providers Care Baker Name Role Phone Unknown Primary Care Provider Unavailabl e Reason for Visit * Reason Comments Leg Pain Encounter Details Date Type Department Care Team (Late st Contact Info) Description 04/30/2016 8:17 AM EST - 04/30/2016 11:17 AM EST [place] [address] Cj Cabrera MD [facility] [place] [address] Cellulitis of leg, right; Pain of right lower leg; Contusion of right thigh, sequela; Late effects of accident Discharge Disposition: Home Social History Tobacco Use [...] Sign Reading Time Taken Comments Blood Pressure 162/100 04/30/2016 11:00 AM EST Pulse 90 04/30/2016 8:22 AM EST Temperature 37 ??C (98.6 ??F) 04/30/2016 8:22 AM EST Respiratory Rate 18 04/30/2016 8:22 AM EST Oxygen Saturation 98% 04/30/2016 11:00 AM EST Inhaled Oxygen Concentration - - Weight 111.1 kg (245 lb) 04/30/2016 8:22 AM EST Height 182.9 cm (6') 04/30/2016 8:22 AM EST Body Mass Index 33.23 04/30/2016 8:22 AM EST documented in this encounter Discharge Instructions * Discharge Instructions* Bg Patterson PA - 04/30/2016 11:03 AM EST Elevate your leg as much as possible for the next 2 days Keflex as prescribed and please finish entire course. Tylenol or ibuprofen as needed for pain. Reevaluate with any worsening redness, fever, increased pain or swelling. Also reevaluate if not significantly improved in 48 hours. * Attachments The following attachments cannot be sent through Care Everywhere. * CELLULITIS (ANGOLAN) documented in this encounter Medications at Time of Discharge Medication Sig Dispensed Refills Start Date End Date gabapentin (NEURONTIN) 300 mg Capsule Take 900 mg by mouth daily. ascorbic acid (VITAMIN C) 500 mg tablet Take 500 mg by mouth daily. atenolol (TENORMIN) 100 mg tablet Take 100 mg by mouth daily. multivitamin with minerals (THERA-M) 9-0.4 mg tablet Take 1 tablet by mouth daily. cephalexin (KEFLEX) 500 mg Capsule Take 1 capsule by mouth 4 times daily for 10 days. 40 capsule 04/30/2016 05/10/2016 hydroCHLOROthiazide (HYDRODIURIL) 25 mg Tablet Take 25 mg by mouth daily. 06/27/2016 aspirin 81 mg EC tablet Take 81 mg by mouth daily. 08/15/2018 ibuprofen (ADVIL;MOTRIN) 200 mg tablet Take 800 mg by mouth every 6 hours as needed. 02/20/2018 Dykq-Jdgabm-UjfndsSuih- D3-C-Mn (GLUCOSAMINE-CHONDROITI N-VIT D3) 500-400-667 mg-mg-unit Cap Take 1 tablet by mouth daily. 06/27/2016 documented as of this encounter ED Notes * Bg Patterson PA - 04/30/2016 10:31 AM EST Chief Complaint Patient presents with ??? Leg Pain The history is provided by the patient. 46-year-old male comes in today for evaluation of painful reddened area to the right almazan. Patient says this is developed since yesterday. He has not had any fevers or chills. Pain is worse with pressure over the area or walking. He indicates the redness was smaller yesterday and seems to expand ittoday. Patient recently was seen in the emergency room about 12 days ago with a large hematoma in his right thigh. Underlying cause was not determined. Was diagnosed with a MRI that was done here in the emergency room. Patient says that that area is somewhat less painful than it was before. He saysthe bruising is not changed with the exception of been present now down his leg. Patient does say that the redness that is developed to the anterior almazan has never happened before.He is not diabetic. He denies any trauma to the area. No Known Allergies Review of Systems Constitutional: Negative for fever. Respiratory: Negative for cough and shortness of breath. Cardiovascular: Positive for leg swelling (right leg remains slightly swollen due to bruis). Negative for chest pain. Gastrointestinal: Negative for nausea and vomiting. Genitourinary: Negative for dysuria, frequency and urgency. Musculoskeletal: Negative for arthralgias, gait problem and myalgias. Skin: Positive for rash (Erythema to the right anterior almazan). Negative for wound. Neurological: Negative for light-headedness, numbness and headaches. Physical Exam Constitutional: He is oriented to person, place, and time. He appears well- developed and well-nourished. HENT: Head: Normocephalic and atraumatic. Mouth/Throat: Oropharynx is clear and moist. Neck: Normal range of motion. Neck supple. Cardiovascular: Normal rate, regular rhythm and normal heart sounds. Pulmonary/Chest: Effort normal and breath sounds normal. Musculoskeletal: Patient has extensive old appearing bruising coming down the medial aspect of his thigh to his foot. Has palpable distal pulses. He does have an area of erythema to the anterior aspect of the right almazan. Neurological: He is alert and oriented to person, place, and time. Skin: Skin is warm and dry. Psychiatric: He has a normal mood and affect. His behavior is normal. Nursing note and vitals reviewed. Labs: Recent Results (from the past 24 hour(s)) Basic Metabolic Panel (non-fasting) Result Value Ref Range Glucose Lvl 133 65 - 199 mg/dL BUN 11 10 - 20 mg/dL Creatinine 0.70 (L) 0.80 - 1.50 mg/dL Sodium 137 135 - 145 mmol/L Potassium 4.1 3.5 - 5.0 mmol/L Chloride 99 98 - 107 mmol/L CO2 25 22 - 31 mmol/L Anion Gap 13 5 - 15 mmol/L Calcium 8.9 8.5 - 10.5 mg/dL Estimated GFR >60 >=60 Hemogram Result Value Ref Range WBC 14.2 (H) 4.0 - 9.5 x10(3)/mcL RBC 4.86 4.58 - 5.54 x10(6)/mcL Hemoglobin 15.6 13.7 - 16.5 gm/dL Hematocrit 45.6 40.5 - 48.5 % MCV 93.8 (H) 82.9 - 93.1 fL MCH 32.1 27.5 - 32.1 pg MCHC 34.2 32.0 - 35.7 gm/dL Platelets 360 (H) 145 - 357 x10(3)/mcL RDWSD 41.9 36.0 - 45.0 fL RDWCV 12.2 11.4 - 13.8 % MPV 11.0 7.6 - 12.9 fL nRBC % Auto 0.0 % nRBC Abs Auto 0.000 0.000 - 0.000 x10(3)/mcL Differential, Automated Result Value Ref Range Neutrophils % 72.7 % Neutr Abs (ANC) 10.29 (H) 1.70 - 6.10 x10(3)/mcL Lymphocytes % 18.7 % Lymphocytes Abs 2.6 0.9 - 3.2 x10(3)/mcL Monocytes % 6.7 % Monocyte Abs 1.0 (H) 0.3 - 0.9 x10(3)/mcL Eosinophils % 0.9 % Eosinophils Abs 0.1 0.0 - 0.4 x10(3)/mcL Basophils % 0.4 % Basophils Abs 0.1 0.0 - 0.1 x10(3)/mcL Immature Gran % 0.60 % Leanne Gran Abs 0.09 (H) 0.00 - 0.04 x10(3)/mcL Procedures MDM ED Course: The patient was evaluated as above. He seems to have improvement by his report of the hematoma and bruising that he had earlier. He does continue with some mild discomfort in the thigh buthas had that for the last 2 weeks. Patient is likely developed cellulitis to the anterior surface of his right almazan. His lab work was obtained today and showed no concerning values. I discussed the patient in detail with Dr. Cabrera. She feels comfortable with outpatient treatment as cellulitis. Patient will be instructed to elevate his leg as much as possible next 2 days and use Keflex. Reevaluation with any worsening symptoms or if not significantly improved in 48 hours ED Course Bg Patterson PA 04/30/16 1114 * Cj Cabrera MD - 04/30/2016 10:27 AM EST Patient Name: Porsha Park Patient Age: 46 y.o. Birthdate: 1970 Admit date: 04/30/2016 Attending Physician: Cj Cabrera MD ED Course ED ATTENDING NOTE: I was asked to see this patient by Bg Patterson to assist with medical decision making regarding evaluation, management and disposition of this patient. Below reflects my involvement in medical decision making, please see the Associate Provider's note for additional details. Clinical Summary: 46 y.o. male with recent dx of right thigh hematoma, present with redness and pain of right anterior tibial region Focused Exam: BP (!) 177/106 (Patient Position: Sitting) Pulse 90 Temp 37 ??C (98.6 ??F) (Oral) Resp 18 Ht 182.9 cm (6') Wt (!) 111.1 kg (245 lb) SpO2 98% BMI 33.23 kg/m2 Pt is well appearing in NAD, right LE with redness, warmth and tenderness to right anterior tibial area, NV intact, no significant calf tenderness or calf swelling. Medical Decision Making: suspicious for cellulitis. Unlikely to be necrotizing fasciitis or DVT. Plan for abx and followup Cj Cabrera MD 04/30/16 1321 documented in this encounter Miscellaneous Notes * ED Triage - Flaco Leary NRP - 04/30/2016 8:37 AM EST Patient comes in today with right lower leg pain. He was recently here with leg pain and spent the night and had MRI. The right leg has bruising from that from the upper leg to the foot. He c/o a burn sensation to the almazan and there is a red line that is warm to the touch and good distal pulses. Very painful to the touch. He denies any trauma to the leg recently. Skin PWD NAD documented in this encounter Plan of Treatment Upcoming Encounters Date Type Department Care Team (Late st Contact Info) Description 10/03/2023 2:00 PM EDT Office [place] [address] Carlos Veloz MD [facility] [place] [address] documented as of this encounter Procedures Procedure Name Priority Date/Time Associated Diagnosis Comments HEMOGRAM STAT 04/30/2016 10:05 AM EST DIFFERENTIAL, AUTOMATED STAT 04/30/2016 10:05 AM EST CBC (WITH DIFF) STAT 04/30/2016 10:05 AM EST BASIC METABOLIC PANEL STAT 04/30/2016 10:05 AM EST documented in this encounter Results * (ABNORMAL) Differential, Automated (04/30/2016 10:05 AM EST) Neutrophil % 72.7 % [facility] Neutrophil Absolute 10.29(H) 1.70 - 6.10 x10(3)/[facility] Lymph % 18.7 % [facility] Lymphocytes Abs 2.6 0.9 - 3.2 x10(3)/[facility] Monocyte % 6.7 % [facility] Monocyte Abs 1.0(H) 0.3 - 0.9 x10(3)/[facility] Eos % 0.9 % [facility] Eosinophils Abs 0.1 0.0 - 0.4 x10(3)/[facility] Basophil % 0.4 % [facility] Baso Absolute 0.1 0.0 - 0.1 x10(3)/[facility] Immature Gran % 0.60 % [facility] Comment: Immature granulocytes(IG's)percentage and absolute count will include metamyelocytes, myelocytes, and promyelocytes. Blood smears from CBCs yielding IG's will be scanned manually for concordance. If this scan disagrees with the automated IG or if promyelocytes are noted, a manual differential will be performed. Immature Gran Absolute 0.09(H) 0.00 - 0.04 x10(3)/[facility] Blood specimen (specimen) 04/30/2016 10:05 AM EST 04/30/2016 10:21 AM EST Narrative Resulting Agency Comment Spec In Lab Cj Cabrera MD HEMATOLOGY ORDERABLE S [facility] [place] [address] * (ABNORMAL) Hemogram (04/30/2016 10:05 AM EST) White Blood Cell 14.2(H) 4.0 - 9.5 x10(3)/[facility] Red Blood Cell 4.86 4.58 - 5.54 x10(6)/[facility] Hemoglobin 15.6 13.7 - 16.5 gm/dL [facility] Hematocrit 45.6 40.5 - 48.5 % [facility] Mean Cell Volume 93.8(H) 82.9 - 93.1 fL [facility] Mean Cell Hemoglobin 32.1 27.5 - 32.1 pg [facility] Mean Cell Hemoglobin Concentration 34.2 32.0 - 35.7 gm/dL [facility] Platelet 360(H) 145 - 357 x10(3)/mc L [facility] RDW Standard Deviation 41.9 36.0 - 45.0 fL [facility] RDW coefficient of variation 12.2 11.4 - 13.8 % [facility] Mean Platelet Volume 11.0 7.6 - 12.9 fL [facility] NRBC% auto 0.0 % [facility] NRBC Absolute 0.000 0.000 - 0.000 x10(3)/mc L [facility] Blood specimen (specimen) 04/30/2016 10:05 AM EST 04/30/2016 10:21 AM EST Narrative Resulting Agency Comment Spec In Lab Cj Cabrera MD HEMATOLOGY ORDERABLE S [facility] [place] [address] * (ABNORMAL) Basic Metabolic Panel (non-fasting) (04/30/2016 10:05 AM EST) Glucose 133 65 - 199 mg/dL [facility] Comment:Diabetes: >=200 mg/d L plus symptoms Blood Urea Nitrogen 11 10 - 20 mg/dL [facility] Creatinine 0.70(L) 0.80 - 1.50 mg/dL [facility] Comment: Please note that the pediatric reference intervals supplied above were not validated at [facility]. Results from pediatric patients should be interpreted in conjunction to the patient's age, height and muscle mass. Sodium 137 135 - 145 mmol/L [facility] Potassium 4.1 3.5 - 5.0 mmol/L [facility] Comment: Please note: ??Patients with WBC >100,000 may have falsely elevated Potassium levels. ??For accurate Potassium quantification in these patients send serum separator tube (gold top) for subsequent determinations. ??Contact the Clinical Chemistry Laboratory if there are any questions. Chloride 99 98 - 107 mmol/L [facility] Carbon Dioxide 25 22 - 31 mmol/L [facility] Anion Gap 13 5 - 15 mmol/L [facility] Calcium 8.9 8.5 - 10.5 mg/dL [facility] Est Glomerular Filtration Rate >60 >=60 [facility] Comment: This estimated GFR (eGFR) [...] the following links into your internet browser. [email or web address] Blood specimen (specimen) 04/30/2016 10:05 AM EST 04/30/2016 10:21 AM EST Narrative Resulting Agency Comment Spec In Lab Cj Cabrera MD CHEMISTRY ORDERABLES [facility] [place] [address] documented in this encounter Visit Diagnoses Diagnosis Cellulitis of leg, right Cellulitis and abscess of leg, except foot Pain of right lower leg Pain in limb Contusion of right thigh, sequela Late effects of accident Late effects of unspecified accident documented in this encounter Care Teams Baker Relationship Specialty Start Date End Date Unknown None PCP - General 04/30/16 05/13/16 documented as of this encounter
--- OUTSIDE RECORDS SUMMARY | 2023-10-03 01:24 | XMS_ITS | Encounter Summary ---
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 Discontinued, Routine Given 08/15/2018 9:58 AM EDT 900 mg Given 08/14/2018 8:11 AM EDT 900 mg Given 08/13/2018 10:35 AM EDT 900 mg hydroCHLOROthiazide (HYDRODIURIL) tablet 25 mg 25 mg, Oral, DAILY, First dose on Sat08/13/18 at 0947, Until Discontinued, Routine Given 08/14/2018 8:11 AM EDT 25 mg Given 08/13/2018 1:58 PM EDT 25 mg lisinopril (PRINIVIL;ZESTRIL) tablet 20 mg 20 mg, Oral, DAILY, First dose on Sat08/14/18 at 0900, Until Discontinued, Routine Given 08/14/2018 8:11 AM EDT 20 mg LORazepam (ATIVAN) injection 1-3 mg 1-3 mg, Intravenous, EVERY 4 HOURS PRN, Starting on Sat08/13/18 at 2211, Until Sat08/15/18 at 2038, alcohol/benzodiazepine withdrawal- uncomplicated, When given intravenously, the rate of administration should not exceed 2 mg/minute with ermergency equipment available. Per assessment scale for uncomplicated withdrawal from alcohol. May give IV if unable to take PO. May give IM if no IV access. Medication should be administered at least every 4 hours: For withdrawal score of 5-7, give 1 mg PO or IV or IM: administer every 4 hours. For withdrawal score of 8-10, give 2 mg PO or IV or IM: administer every 4 hours. For withdrawal score of 11 or greater, give 3 mg PO or IV or IM: administer every 4 hours. + If withdrawal score remains 11 or greater for two consecutive assessment periods, call provider. + If patient has had seizures in previous 8 hours and has gone 4 hours without medications, give 3 mg PO or IV or IM., Routine LORazepam (ATIVAN) injection 1-3 mg 1-3 mg, Intramuscular, EVERY 4 HOURS PRN, Starting on Sat08/13/18 at 2211, Until Sat08/15/18 at 2038, alcohol/benzodiazepine withdrawal- uncomplicated, Per assessment scale for uncomplicated withdrawal from alcohol. May give IV if unable to take PO. May give IM if no IV access. Medication should be administered at least every 4 hours: For withdrawal score of 5-7, give 1 mg PO or IV or IM: administer every 4 hours. For withdrawal score of 8-10, give 2 mg PO or IV or IM: administer every 4 hours. For withdrawal score of 11 or greater, give 3 mg PO or IV or IM: administer every 4 hours. + If withdrawal score remains 11 or greater for two consecutive assessment periods, call provider. + If patient has had seizures in previous 8 hours and has gone 4 hours without medications, give 3 mg PO or IV or IM., Routine LORazepam (ATIVAN) tablet 1-3 mg 1-3 mg, Oral, EVERY 4 HOURS PRN, Starting on Sat08/13/18 at 2211, Until Sat08/15/18 at 2039, alcohol/benzodiazepine withdrawal- uncomplicated, Per assessment scale for uncomplicated withdrawal from alcohol. May give IV if unable to take PO. May give IM if no IV access. Medication should be administered at least every 4 hours: For withdrawal score of 5-7, give 1 mg PO or IV or IM: administer every 4 hours. For withdrawal score of 8-10, give 2 mg PO or IV or IM: administer every 4 hours. For withdrawal score of 11 or greater, give 3 mg PO or IV or IM: administer every 4 hours. + If withdrawal score remains 11 or greater for two consecutive assessment periods, call provider. + If patient has had seizures in previous 8 hours and has gone 4 hours without medications, give 3 mg PO or IV or IM., Routine Given 08/14/2018 2:40 AM EDT 1 mg melatonin tablet 6 mg 6 mg, Oral, NIGHTLY, First dose on Sat08/14/18 at 2100, Until Discontinued, Routine Given 08/14/2018 8:35 PM EDT 6 mg multivitamin with minerals (THERA-M) tablet 1 tablet 1 tablet, Oral, DAILY, First dose on Sat08/14/18 at 0900, Until Discontinued, Routine Given 08/15/2018 9:59 AM EDT 1 tablet Given 08/14/2018 8:12 AM EDT 1 tablet oxyCODONE (ROXICODONE) immediate release tablet 10 mg 10 mg, Oral, EVERY 4 HOURS PRN, Starting on Sat08/13/18 at 0946, Until Sat08/15/18 at 2038, Pain, moderate pain (4-6), For moderate pain (4-6). Do not exceed 15 mg in 4 hours. If pain not relieved, call provider., Routine Given 08/14/2018 8:11 AM EDT 1 0 mg oxyCODONE (ROXICODONE) immediate release tablet 15 mg 15 mg, Oral, EVERY 4 HOURS PRN, Starting on Sat08/13/18 at 0946, Until Sat08/15/18 at 2038, Pain, severe pain (7-10), For severe pain (7-10). Do not exceed 15 mg in 4 hours. If pain not relieved, call provider., Routine Given 08/15/2018 2:4 4 PM EDT 15 mg Given 08/15/2018 10:18 AM EDT 15 mg Given 08/15/2018 6:16 AM EDT 15 mg oxyCODONE (ROXICODONE) immediate release tablet 5 mg 5 mg, Oral, EVERY 4 HOURS PRN, Starting on Sat08/13/18 at 0946, Until Sat08/15/18 at 2038, Pain, mild pain (1-3), For mild pain (1-3). Do not exceed 15 mg in 4 hours. If pain not relieved, call provider, Routine Given 08/13/2018 10:22 PM EDT 5 mg polyethylene glycol (MIRALAX) packet 17 g 17 g, Oral, 2 TIMES DAILY, First dose on Sat08/13/18 at 0948, Until Discontinued, Routine Given 08/15/2018 9:59 AM EDT 17 g Given 08/14/2018 8:35 PM EDT 17 g Given 08/14/2018 8:11 AM EDT 17 g senna-docusate (PERICOLACE) 8.6-50 mg per tablet 2 tablet 2 tablet, Oral, 2 TIMES DAILY, First dose on Sat08/13/18 at 0948, Until Discontinued, Routine Given 08/15/2018 9:58 AM EDT 2 tablets Given 08/14/2018 8:35 PM EDT 2 tablets Given 08/14/2018 8:12 AM EDT 2 tablets sodium chloride 0.9 % (flush) flush 5 mL 5 mL, Intravenous, 2 TIMES DAILY, First dose on Sat08/13/18 at 0948, Until Discontinued, Routine Given 08/15/2018 9:00 AM EDT 5 mLs Given 08/14/2018 8:39 PM EDT 5 mLs Given 08/14/2018 8:11 AM EDT 5 mLs sodium chloride 0.9% infusion 1,000 mL, at 100 mL/hr, Intravenous, CONTINUOUS, Starting on Sat08/13/18 at 0948, Until Sat08/15/18 at 2039 New Bag 08/13/2018 10:30 AM EDT 1,000 mL s 100 mL/hr thiamine (Vitamin B-1) tablet 100 mg 100 mg, Oral, DAILY, First dose on Judith 08/14/18 at 0900, Until Discontinued, Routine Given 08/15/2018 9:58 AM EDT 100 mg Given 08/14/2018 8:12 AM EDT 100 mg documented in this encounter Active and Recently Administered Medications Times are shown in EDT. Scheduled Medication Order 08/13/2018 08/14/2018 08/15/2018 acetaminophen (TYLENOL) tablet 1,000 mg 1,000 mg, Oral, EVERY 8 HOURS SCHEDULED, First dose on Sat08/13/18 at 0948, Until Discontinued, Maximum dose of acetaminophen is 4000 mg from all sources in 24 hours., Routine 1035 (Given - Provider: Naya Poe RN)1400 (Not Given - Provider: Caesar Avendano - Reason: Transfer to a Procedural area)1506 (MAR Hold - Provider: Admin Adt - Reason: Transfer to a Procedural area)1814 (MAR Unhold - Provider: Avril Nielsen RN)2221 (Given - Provider: Caesar Avendano) 0600 (Not Given - Provider: Caesar Avendano - Reason: Patient/family refused)1333 (Given - Provider: Garcia Trivedi RN)2200 (Not Given - Provider: Caesar Avendano - Reason: Patient/family refused - Comment: Pt asked to not be woken for tylenol) 0615 (Given - Provider: Caesar Avendano)1442 (Given - Provider: Zenia Romo RN) atenolol (TENORMIN) tablet 100 mg 100 mg, Oral, DAILY, First dose on Judith 08/14/18 at 0900, Until Discontinued, Routine 1506 (APR Hold - Provider: Admin Adt - Reason: Transfer to a Procedural area)2126 (APR Unhold - Provider: Admin Adt) 0812 (Given - Provider: Garcia Trivedi, RN) 0900 (Not Given - Provider: Zenia Romo, ARNOL - Reason: See comment - Comment: BP 118/64) atorvastatin (LIPITOR) tablet 10 mg 10 mg, Oral, DAILY, First dose on Sat08/14/18 at 0900, Until Discontinued, Routine 1506 (APR Hold - Provider: Admin Adt - Reason: Transfer to a Procedural area)212 (APR Unhold - Provider: Admin Adt) 0812 (Given - Provider: Garcia Trivedi RN) 0958 (Given - Provider: Zenia Romo, ARNOL) ceFAZolin (ANCEF) 2g in dextrose 5% 100 mL (CANCELED) 2 g, Intravenous, EVERY 8 HOURS, First dose on Sat08/13/18 at 0947, Until Discontinued, Administer over 30 Minutes, Indication for (Active or Suspected): Prophylaxis 1033 (New Bag - Provider: Naya Poe RN)1116 (Stopped - Provider: Naya Poe RN)1506 ([facility] Hold - Provider: Admin Adt - Reason: Transfer to a Procedural area)1747 (Automatically Held - Provider: Admin Adt)1814 ([facility] Unhold - Provider: Admin Adt) ceFAZolin (ANCEF) 2g in dextrose 5% 100 mL (COMPLETED) 2 g, Intravenous, EVERY 8 HOURS, 3 doses, First dose (after last modification) on Sat08/14/18 at 0200, Last dose on Sat08/14/18 at 1800, Administer over 30 Minutes, Indication for (Active or Suspected): Prophylaxis 0240 (New Bag - Provider: Caesar Avendano)0310 (Stopped - Provider: Caesar Avendano)1017 (New Bag - Provider: Garcia Trivedi, ARNOL)1047 (Stopped - Provider: Garcia Trivedi, RN)1705 (New Bag - Provider: Garcia Trivedi, RN)1735 (Stopped - Provider: Garcia Trivedi, RN) enoxaparin (LOVENOX) injection 40 mg (COMPLETED) 40 mg, Subcutaneous, ONCE, 1 dose, On Sat08/15/18 at 1500, Routine 1704 (Given - Provider: Zenia Romo, ARNOL) folic acid (FOLVITE) tablet 1,000 mcg 1,000 mcg (1 mg), Oral, DAILY, First dose on Sat08/14/18 at 0900, Until Discontinued, Routine 0812 (Given - Provider: Garcia Trivedi RN) 0958 (Given - Provider: eZnia Romo, ARNOL) gabapentin (NEURONTIN) capsule 900 mg 900 mg, Oral, DAILY, First dose on Sat08/13/18 at 0947, Until Discontinued, Routine 1035 (Given - Provider: Naya Poe, ARNOL)1506 (APR Hold - Provider: Admin Adt - Reason: Transfer to a Procedural area)7 ([facility] Unhold - Provider: Admin Adt) 0811 (Given - Provider: Garcia Trivedi RN) 0958 (Given - Provider: Zenia Romo, ARNOL) hydroCHLOROthiazide (HYDRODIURIL) tablet 25 mg 25 mg, Oral, DAILY, First dose on Sat08/13/18 at 0947, Until Discontinued, Routine 0947 (Not Given - Provider: Naya Poe RN - Reason: Medication not available - Comment: have not received [facility])1358 (Given - Provider: Kellie Alvarez RN)1506 ([facility] Hold - Provider: Admin Adt - Reason: Transfer to a Procedural area)2127 ([facility] Unhold - Provider: Admin Adt) 0811 (Given - Provider: Garcia Trivedi RN) 0900 (Not Given - Provider: Zenia Romo RN - Reason: See comment - Comment: BP 118/64) lisinopril (PRINIVIL;ZESTRIL) tablet 20 mg 20 mg, Oral, DAILY, First dose on Sat08/14/18 at 0900, Until Discontinued, Routine 1506 (APR Hold - Provider: Admin Adt - Reason: Transfer to a Procedural area)2127 ([facility] Unhold - Provider: Admin Adt) 0811 (Given - Provider: Garcia Trivedi RN) 0900 (Not Given - Provider: Zenia Romo RN - Reason: See comment - Comment: BP 118/64) melatonin tablet 6 mg 6 mg, Oral, NIGHTLY, First dose on Sat08/14/18 at 2100, Until Discontinued, Routine 2034 (Given - Provider: Caesar Avendano) morphine 4 mg/mL injection 4 mg (COMPLETED) 4 mg, Intravenous, ONCE, 1 dose, On Sat08/13/18 at 0444, STAT 0447 (Given - Provider: Naya Poe, ARNOL) multivitamin with minerals (THERA-M) tablet 1 tablet 1 tablet, Oral, DAILY, First dose on Sat08/14/18 at 0900, Until Discontinued, Routine 0812 (Given - Provider: Garcia Trivedi RN) 0959 (Given - Provider: Zenia Romo, ARNOL) nicotine (NICODERM CQ) 14 mg/24 hr patch 14 mg (COMPLETED) 14 mg (1 patch), Transdermal, Administer over 24 Hours, ONCE, 1 dose, On Sat08/13/18 at 0355, STAT 0403 (Given - Provider: Naya Poe, ARNOL) nicotine (NICODERM CQ) 14 mg/24 hr patch 14 mg (COMPLETED)(Linked Group 1) 14 mg (1 patch), Transdermal, Administer over 24 Hours, ONCE, 1 dose, On Sat08/14/18 at 1115, Routine 1114 (Given - Provider: Garcia Trivedi RN) nicotine (NICODERM CQ) 14 mg/24 hr patch Patch Removal(Linked Group 1) Transdermal, DAILY, 1 dose, First dose on Sat08/15/18 at 1100, Remove nicotine 14 mg/24 hr patch 1156 (Patch Removed - Provider: Zenia Romo, ARNOL) nicotine (NICODERM CQ) 14 mg/24 hr patch Patch Verification(Linked Group 1) Transdermal, 2 TIMES DAILY, 2 doses, First dose on Sat08/14/18 at 2300, Last dose on Sat08/15/18 at 0900, Verify nicotine 14 mg/24 hr patch. 2300 (Patch (dose and location) verified - Provider: Caesar Avendano) 0900 (Patch (dose and location) verified - Provider: Zenia Romo, ARNOL) polyethylene glycol (MIRALAX) packet 17 g 17 g, Oral, 2 TIMES DAILY, First dose on Sat08/13/18 at 0948, Until Discontinued, Routine 09 (Not Given - Provider: Naya Poe RN - Reason: NPO)1506 (APR Hold - Provider: Admin Adt - Reason: Transfer to a Procedural area)2099 (Automatically Held - Provider: Admin Adt)2126 (APR Unhold - Provider: Admin Adt) 0811 (Given - Provider: Garcia Trivedi RN)2034 (Given - Provider: Caesar Avendano) 0959 (Given - Provider: Zenia Romo, RN) senna-docusate (PERICOLACE) 8.6-50 mg per tablet 2 tablet 2 tablet, Oral, 2 TIMES DAILY, First dose on Sat08/13/18 at 0948, Until Discontinued, Routine 1035 (Given - Provider: Naya Poe RN)1506 (APR Hold - Provider: Admin Adt - Reason: Transfer to a Procedural area)2099 (Automatically Held - Provider: Admin Adt)2126 (APR Unhold - Provider: Admin Adt) 0812 (Given - Provider: Garcia Trivedi RN)2034 (Given - Provider: Caesar Avendano) 0958 (Given - Provider: Zenia Romo, ARNOL) sodium chloride 0.9 % (flush) flush 5 mL 5 mL, Intravenous, 2 TIMES DAILY, First dose on Sat08/13/18 at 0948, Until Discontinued, Routine 1036 (Given - Provider: Naya Poe RN)1506 (APR Hold - Provider: Admin Adt - Reason: Transfer to a Procedural area)2099 (Automatically Held - Provider: Admin Adt)2126 (APR Unhold - Provider: Admin Adt) 0811 (Given - Provider: Garcia Trivedi RN)2038 (Given - Provider: Caesar Avendano) 09 (Given - Provider: Zenia Romo, ARNOL) thiamine (Vitamin B-1) tablet 100 mg 100 mg, Oral, DAILY, First dose on Judith 08/14/18 at 0900, Until Discontinued, Routine 0812 (Given - Provider: Garcia Trivedi RN) 0958 (Given - Provider: Zenai Romo, ARNOL) Continuous Medication Order 08/13/2018 08/14/2018 08/15/2018 sodium chloride 0.9% infusion 1,000 mL, at 100 mL/hr, Intravenous, CONTINUOUS, Starting on Sat08/13/18 at 0948, Until Sat08/15/18 at 2039 1030 (New Bag - Provider: Naya Poe, ARNOL)1506 (APR Hold - Provider: Admin Adt - Reason: Transfer to a Procedural area)1656 (Anesthesia Volume Adjustment - Provider: Bg Moran CRNA)181 (APR Unhold - Provider: Avril Nielsen, RN) PRN Medication Order 08/13/2018 08/14/2018 08/15/2018 cyclobenzaprine (FLEXERIL) tablet 10 mg 10 mg, Oral, 3 TIMES DAILY PRN, Starting on Sat08/13/18 at 0945, Until Sat08/15/18 at 2039, Muscle spasms, Routine 1506 (APR Hold - Provider: Admin Adt - Reason: Transfer to a Procedural area)1813 (APR Unhold - Provider: Avril Nielsen RN) fentaNYL (PF) 50mcg/mL injection (CANCELED) 50 mcg, Intravenous, EVERY 30 MIN PRN, Starting on Sat08/13/18 at 0522, Until Judith 08/14/18 at 0712, Pain, If medication ordered subcutaneously, do not administer more than 2 mL as a single injection., STAT 0540 (Given - Provider: Shahida Mcfarlane RN)0816 (Given - Provider: Naya Poe RN)1032 (Given - Provider: Naya Poe, ARNOL)1320 (Given - Provider: Naya Poe, ARNOL)1356 (Given - Provider: Kellie Alvarez RN)1506 (APR Hold - Provider: Admin Adt - Reason: Transfer to a Procedural area)2126 (APR Unhold - Provider: Admin Adt) HYDROmorphone (DILAUDID) injection 0.4-0.6 mg (CANCELED) 0.4-0.6 mg, Intravenous, EVERY 5 MIN PRN, Starting on Sat08/13/18 at 1726, Until Sat08/13/18 at 2126, Pain, Give 0.4 mg every 5 minutes PRN for mild to moderate pain (1-5) Give 0.6 mg every 5 minutes PRN for moderate to severe pain (6-10). Hold for respiratory rate less than 10 per minute. Maximum dose 4 mg over one hour. If multiple pain medications are ordered, start with hydromorphone or morphine and use fentanyl for breakthrough pain., PACU Recovery, Routine 191 (Given - Provider: Kaitlyn Avina RN) lidocaine (XYLOCAINE) 10 mg/mL (1 %) injection 3 mg 3 mg (0.3 mL), Subcutaneous, ONCE PRN, 1 dose, Starting on Sat08/13/18 at 0946, Until Sat08/15/18 at 2038, for discomfort with PIV insertion, Routine 1506 (APR Hold - Provider: Admin Adt - Reason: Transfer to a Procedural area)2126 (APR Unhold - Provider: Admin Adt) LORazepam (ATIVAN) injection 1-3 mg(Linked Group 2) 1-3 mg, Intravenous, EVERY 4 HOURS PRN, Starting on Sat08/13/18 at 2211, Until Sat08/15/18 at 2038, alcohol/benzodiazepine withdrawal- uncomplicated, When given intravenously, the rate of administration should not exceed 2 mg/minute with ermergency equipment available. Per assessment scale for uncomplicated withdrawal from alcohol. May give IV if unable to take PO. May give IM if no IV access. Medication should be administered at least every 4 hours: For withdrawal score of 5-7, give 1 mg PO or IV or IM: administer every 4 hours. For withdrawal score of 8-10, give 2 mg PO or IV or IM: administer every 4 hours. For withdrawal score of 11 or greater, give 3 mg PO or IV or IM: administer every 4 hours. + If withdrawal score remains 11 or greater for two consecutive assessment periods, call provider. + If patient has had seizures in previous 8 hours and has gone 4 hours without medications, give 3 mg PO or IV or IM., Routine 0240 (See Alternative - Provider: Caesar Avendano) LORazepam (ATIVAN) injection 1-3 mg(Linked Group 2) 1-3 mg, Intramuscular, EVERY 4 HOURS PRN, Starting on Sat08/13/18 at 2211, Until Sat08/15/18 at 2038, alcohol/benzodiazepine withdrawal- uncomplicated, Per assessment scale for uncomplicated withdrawal from alcohol. May give IV if unable to take PO. May give IM if no IV access. Medication should be administered at least every 4 hours: For withdrawal score of 5-7, give 1 mg PO or IV or IM: administer every 4 hours. For withdrawal score of 8-10, give 2 mg PO or IV or IM: administer every 4 hours. For withdrawal score of 11 or greater, give 3 mg PO or IV or IM: administer every 4 hours. + If withdrawal score remains 11 or greater for two consecutive assessment periods, call provider. + If patient has had seizures in previous 8 hours and has gone 4 hours without medications, give 3 mg PO or IV or IM., Routine 0240 (See Alternative - Provider: Caesar Avendano) LORazepam (ATIVAN) tablet 1-3 mg(Linked Group 2) 1-3 mg, Oral, EVERY 4 HOURS PRN, Starting on Sat08/13/18 at 2211, Until Sat08/15/18 at 2038, alcohol/benzodiazepine withdrawal- uncomplicated, Per assessment scale for uncomplicated withdrawal from alcohol. May give IV if unable to take PO. May give IM if no IV access. Medication should be administered at least every 4 hours: For withdrawal score of 5-7, give 1 mg PO or IV or IM: administer every 4 hours. For withdrawal score of 8-10, give 2 mg PO or IV or IM: administer every 4 hours. For withdrawal score of 11 or greater, give 3 mg PO or IV or IM: administer every 4 hours. + If withdrawal score remains 11 or greater for two consecutive assessment periods, call provider. + If patient has had seizures in previous 8 hours and has gone 4 hours without medications, give 3 mg PO or IV or IM., Routine 0240 (Given - Provider: Caesar Avendano) ondansetron (ZOFRAN) injection 4 mg 4 mg, Intravenous, EVERY 8 HOURS PRN, Starting on Sat08/13/18 at 0946, Until Sat08/15/18 at 2038, Nausea, If multiple antiemetics are ordered, use ondansetron first, prochlorperazine second, metoclopramide third. 1506 (APR Hold - Provider: Admin Adt - Reason: Transfer to a Procedural area)7 (APR Unhold - Provider: Admin Adt) oxyCODONE (ROXICODONE) immediate release tablet 10 mg(Linked Group 3) 10 mg, Oral, EVERY 4 HOURS PRN, Starting on Sat08/13/18 at 0946, Until Sat08/15/18 at 2038, Pain, moderate pain (4-6), For moderate pain (4-6). Do not exceed 15 mg in 4 hours. If pain not relieved, call provider., Routine 1506 (APR Hold - Provider: Admin Adt - Reason: Transfer to a Procedural area)1814 (APR Unhold - Provider: Avril Nielsen RN)2222 (See Alternative - Provider: Caesar Avendano) 0811 (Given - Provider: Garcia Trivedi RN)1222 (See Alternative - Provider: Garcia Trivedi RN)1621 (See Alternative - Provider: Garcia Trivedi RN)2035 (See Alternative - Provider: Caesar Avendano) 0616 (See Alternative - Provider: Caesar Avendano)1018 (See Alternative - Provider: Zenia Romo, ARNOL)1444 (See Alternative - Provider: Zenia Romo, ARNOL) oxyCODONE (ROXICODONE) immediate release tablet 15 mg(Linked Group 3) 15 mg, Oral, EVERY 4 HOURS PRN, Starting on Sat08/13/18 at 0946, Until Sat08/15/18 at 2038, Pain, severe pain (7-10), For severe pain (7-10). Do not exceed 15 mg in 4 hours. If pain not relieved, call provider., Routine 1506 (APR Hold - Provider: Admin Adt - Reason: Transfer to a Procedural area)1814 (APR Unhold - Provider: Avril Nielsen RN)2222 (See Alternative - Provider: Caesar Avendano) 0811 (See Alternative - Provider: Garcia Trivedi RN)1222 (Given - Provider: Garcia Trivedi RN)1621 (Given - Provider: Garcia Trivedi RN)2035 (Given - Provider: Caesar Avendano) 0616 (Given - Provider: Caesar Avendano)1018 (Given - Provider: Zenia Romo, ARNOL)1444 (Given - Provider: Zenia Romo, ARNOL) oxyCODONE (ROXICODONE) immediate release tablet 5 mg(Linked Group 3) 5 mg, Oral, EVERY 4 HOURS PRN, Starting on Sat08/13/18 at 0946, Until Sat08/15/18 at 2038, Pain, mild pain (1-3), For mild pain (1-3). Do not exceed 15 mg in 4 hours. If pain not relieved, call provider, Routine 1506 (APR Hold - Provider: Admin Adt - Reason: Transfer to a Procedural area)1814 (APR Unhold - Provider: Avril Nielsen RN)2222 (Given - Provider: Caesar Avendano) 0811 (See Alternative - Provider: Garcia Trivedi, RN)1222 (See Alternative - Provider: Garcia Trivedi, RN)1621 (See Alternative - Provider: Garcia Trivedi, RN)2036 (See Alternative - Provider: Caesar Avendano) 0616 (See Alternative - Provider: Caesar Avendano)1018 (See Alternative - Provider: Zenia Romo, ARNOL)1444 (See Alternative - Provider: Zenia Romo, ARNOL) sodium chloride 0.9 % (flush) flush 5-20 mL 5-20 mL, Intravenous, EVERY 1 MIN PRN, Starting on Sat08/13/18 at 0946, Until Sat08/15/18 at 2038, flush, Flush pertains to all indwelling lines. Flush per protocol found in the job aid using the link provided on this medication record., Routine 1506 (APR Hold - Provider: Admin Adt - Reason: Transfer to a Procedural area)2126 (APR Unhold - Provider: Admin Adt) Linked Groups Order Group 1: nicotine (NICODERM CQ) 14 mg/24 hr patch 14 mg (COMPLETED)Jump to med 14 mg (1 patch), Transdermal, Administer over 24 Hours, ONCE, 1 dose, On Sat08/14/18 at 1115, Routine And nicotine (NICODERM CQ) 14 mg/24 hr patch Patch VerificationJump to med Transdermal, 2 TIMES DAILY, 2 doses, First dose on Sat08/14/18 at 2300, Last dose on Sat08/15/18 at 0900, Verify nicotine 14 mg/24 hr patch. And nicotine (NICODERM CQ) 14 mg/24 hr patch Patch RemovalJump to med Transdermal, DAILY, 1 dose, First dose on Sat08/15/18 at 1100, Remove nicotine 14 mg/24 hr patch Group 2: LORazepam (ATIVAN) tablet 1-3 mgJump to med 1-3 mg, Oral, EVERY 4 HOURS PRN, Starting on Sat08/13/18 at 2211, Until Sat08/15/18 at 2038, alcohol/benzodiazepine withdrawal- uncomplicated, Per assessment scale for uncomplicated withdrawal from alcohol. May give IV if unable to take PO. May give IM if no IV access. Medication should be administered at least every 4 hours: For withdrawal score of 5-7, give 1 mg PO or IV or IM: administer every 4 hours. For withdrawal score of 8-10, give 2 mg PO or IV or IM: administer every 4 hours. For withdrawal score of 11 or greater, give 3 mg PO or IV or IM: administer every 4 hours. + If withdrawal score remains 11 or greater for two consecutive assessment periods, call provider. + If patient has had seizures in previous 8 hours and has gone 4 hours without medications, give 3 mg PO or IV or IM., Routine Or LORazepam (ATIVAN) injection 1-3 mgJump to med 1-3 mg, Intravenous, EVERY 4 HOURS PRN, Starting on Sat08/13/18 at 2211, Until Sat08/15/18 at 2038, alcohol/benzodiazepine withdrawal- uncomplicated, When given intravenously, the rate of administration should not exceed 2 mg/minute with ermergency equipment available. Per assessment scale for uncomplicated withdrawal from alcohol. May give IV if unable to take PO. May give IM if no IV access. Medication should be administered at least every 4 hours: For withdrawal score of 5-7, give 1 mg PO or IV or IM: administer every 4 hours. For withdrawal score of 8-10, give 2 mg PO or IV or IM: administer every 4 hours. For withdrawal score of 11 or greater, give 3 mg PO or IV or IM: administer every 4 hours. + If withdrawal score remains 11 or greater for two consecutive assessment periods, call provider. + If patient has had seizures in previous 8 hours and has gone 4 hours without medications, give 3 mg PO or IV or IM., Routine Or LORazepam (ATIVAN) injection 1-3 mgJump to med 1-3 mg, Intramuscular, EVERY 4 HOURS PRN, Starting on Sat08/13/18 at 2211, Until Sat08/15/18 at 2038, alcohol/benzodiazepine withdrawal- uncomplicated, Per assessment scale for uncomplicated withdrawal from alcohol. May give IV if unable to take PO. May give IM if no IV access. Medication should be administered at least every 4 hours: For withdrawal score of 5-7, give 1 mg PO or IV or IM: administer every 4 hours. For withdrawal score of 8-10, give 2 mg PO or IV or IM: administer every 4 hours. For withdrawal score of 11 or greater, give 3 mg PO or IV or IM: administer every 4 hours. + If withdrawal score remains 11 or greater for two consecutive assessment periods, call provider. + If patient has had seizures in previous 8 hours and has gone 4 hours without medications, give 3 mg PO or IV or IM., Routine Group 3: oxyCODONE (ROXICODONE) immediate release tablet 5 mgJump to med 5 mg, Oral, EVERY 4 HOURS PRN, Starting on Sat08/13/18 at 0946, Until Sat08/15/18 at 2038, Pain, mild pain (1-3), For mild pain (1-3). Do not exceed 15 mg in 4 hours. If pain not relieved, call provider, Routine Or oxyCODONE (ROXICODONE) immediate release tablet 10 mgJump to med 10 mg, Oral, EVERY 4 HOURS PRN, Starting on Sat08/13/18 at 0946, Until Sat08/15/18 at 2038, Pain, moderate pain (4-6), For moderate pain (4-6). Do not exceed 15 mg in 4 hours. If pain not relieved, call provider., Routine Or oxyCODONE (ROXICODONE) immediate release tablet 15 mgJump to med 15 mg, Oral, EVERY 4 HOURS PRN, Starting on Sat08/13/18 at 0946, Until Sat08/15/18 at 2038, Pain, severe pain (7-10), For severe pain (7-10). Do not exceed 15 mg in 4 hours. If pain not relieved, call provider., Routine documented in this encounter Care Teams Pillowcase Sewer Relationship Specialty Start Date End Date Mirian Malcolm MD [address] [place] [address] PCP - General Family Medicine 6/19/19 documented as of this encounter
--- OUTSIDE RECORDS SUMMARY | 2023-10-03 01:24 | XMS_ITS | Encounter Summary ---
Author Organization [facility] [place] [address] Care Team Providers Care Telecom Engineer Name Role Phone Monica Paige Primary Care Provider [phone] Reason for Visit * Reason Onset Date Comments Other 09/10/2016 Recall Encounter Details Date Type Department Care Team (Late st Contact Info) Description 09/10/2016 Telephone [place] [address] Tameka Ramos Other (Recall) Social History Tobacco Use Types Packs/Day Years [...] encounter Miscellaneous Notes * Telephone Encounter - Tameka Hammer - 09/10/2016 1:01 PM EDT 3 mo f/u w/BS- prominent aortic pulse, neuropathy & PAD, severe varicose veins (AAA, ABIs &BLE VALV INCOMP). LVM on home # on 08/27/16. [facility] LVM on home # on 09/03/16. [facility] Mailed reminder letter and removed recall on 09/10/16. [facility] documented in this encounter Plan of Treatment Upcoming Encounters Date Type Department Care Team (Late st Contact Info) Description 10/03/2023 2:00 PM EDT Office [place] [address] Carlos Veloz MD [facility] [address] [place] [address] documented as of this encounter Visit Diagnoses Not on filedocumented in this encounter Care Teams Telecom Engineer Relationship Specialty Start Date End Date Monica Paige [address] [place] [address] PCP - General Family Medicine 05/14/16 08/12/18 documented as of this encounter
--- OUTSIDE RECORDS SUMMARY | 2023-10-03 01:24 | XMS_ITS | Encounter Summary ---
Author Organization [facility] [place] [address] Care Team Providers Care Rail Transit Operator Name Role Phone Mirian Malcolm MD Primary Care Provider [phone] Encounter Details Date Type Department Care Team (Late st Contact Info) Description 08/13/2018 7:15 AM EDT Ancillary Procedure [place] [phone] Social History Tobacco Use Types Packs/Day Years [...] 2:00 PM EDT Office Visit [place] [address] Carlos Veloz MD [facility] [place] [address] documented as of this encounter Procedures Procedure Name Priority Date/Time Associated Diagnosis Comments REQUEST FOR 2ND READ CT CHEST ABDOMEN PELVIS STAT 08/13/2018 6:43 AM EDT documented in this encounter Results * Request For 2nd Read CT Chest [...] below. ? Electronically signed by: Brianne Hathaway [facility] ([phone]), at 08/13/2018 7:57 AM Narrative 08/13/2018 7:57 [...] Omnipaque 350 was used. Study performed at [facility] at 0111 hours, August 13, [...] of Omnipaque [facility] [...] number below. Electronically signed by: Brianne Hathaway [facility]([phone]), at 08/13/2018 7:57 AM Caesar Shirley MD IMG OUTSIDE INTER PRETATION ORDERABLES documented in this encounter Visit Diagnoses Not on filedocumented in this encounter Care Teams Rail Transit Operator Relationship Specialty Start Date End Date Mirian Malcolm MD [address] [place] [address] PCP - General Family Medicine 08/13/18 documented as of this encounter
--- OUTSIDE RECORDS SUMMARY | 2023-10-03 01:24 | XMS_ITS | Encounter Summary ---
Author Organization [facility] Address [facility] [place] [address] Care Team Providers Care Tank House Operator Helper Name Role Phone Royal Monica RAFAEL Primary Care Provider [phone] Encounter Details Date Type Department Care Team (Late st Contact Info) Description 06/28/2016 Telephone [place] [phone] Cassy Quiñonez MD [facility] [place] [address] Social History Tobacco Use Types Packs/Day Years [...] encounter Miscellaneous Notes * Telephone Encounter - Emily Gomez RN - 06/28/2016 11:17 AM EDT Office notes and lab reports from 06-27-[address] Malcolm's office in [place], [place]. documented in this encounter Plan of Treatment Upcoming Encounters Date Type Department Care Team (Late st Contact Info) Description 10/03/2023 2:00 PM EDT Office Visit [place] [phone] Carlos Veloz MD [facility] [address] documented as of this encounter Visit Diagnoses Not on filedocumented in this encounter Care Teams Tank House Operator Helper Relationship Specialty Start Date End Date Monica Paige PA [address] [place] [address] PCP - General Family Medicine 05/14/16 08/12/18 documented as of this encounter
--- OUTSIDE RECORDS SUMMARY | 2023-10-03 01:24 | XMS_ITS | Encounter Summary ---
Author Organization [facility] [place] [address] Care Team Providers Care Pharmacy Clinical Specialist Name Role Phone Mirian Malcolm MD Primary Care Provider Encounter Details Date Type Department Care Team (Late st Contact Info) Description 08/13/2018 2:40 AM EDT Ancillary Procedure [place] [phone] Social History Tobacco Use Types Packs/Day Years [...] 2:00 PM EDT Office [place] [address] Carlos Veloz MD [facility] [place] [address] documented as of this encounter Procedures Procedure Name Priority Date/Time Associated Diagnosis Comments FILM LIBRARY STORAGE ONLY CT HEAD AND SPINE STAT 08/13/2018 2:31 AM EDT documented in this encounter Results * Film Library- Storage Only CT Head And Spine (08/13/2018 2:31 AM EDT) Narrative [facility] - 08/13/2018 2:31 AM EDT This exam is auto-finalizing. It's purpose is for storage only. Williams Bridges MD IM FILM LIBRARY ORD ERABLES [facility] [place], [place] documented in this encounter Visit Diagnoses Not on filedocumented in this encounter Care Teams Pharmacy Clinical Specialist Relationship Specialty Start Date End Date Mirian Malcolm MD [address] [place] [address] PCP - General Family Medicine 08/13/18 documented as of this encounter
--- OUTSIDE RECORDS SUMMARY | 2023-10-03 01:24 | XMS_ITS | Encounter Summary ---
Author Organization [facility] Address [facility] [place] [address] Care Team Providers Care Project Economist Name Role Phone Monica Paige Primary Care Provider [phone] Reason for Visit * Reason Comments Varicose Veins pt here for f/u VV r upture and foot numbness * Consultation (Routine) - Specialty Diagnoses / Procedures Referred By Contblake t Referred To Contact Vascular Surgery Diagnoses severe varicose veins with inflammation Monica Paige PA [address] [place] [address] [facility] [address] [place] [address] Referral ID Status Reason Start Date Expiration Date V isits Requested Visits Authorized [id number] [facility] 05/14/2016 05/14/2017 2 2 Encounter Details Date Type Department Care Team (Late st Contact Info) Description 06/01/2016 8:30 AM EDT Office [place] [phone] Mary Ko MD [facility] [place] [address] Varicose veins of leg with swelling, unspecified laterality; Neuropathic pain; Cigarette nicotine dependence without complication Social History Tobacco Use Types Packs/Day Years [...] Sign Reading Time Taken Comments Blood Pressure 161/98 06/01/2016 8:34 AM EDT Pulse 76 06/01/2016 8:34 AM EDT Temperature - - Respiratory Rate 18 06/01/2016 8:34 AM EDT Oxygen Saturation - - Inhaled Oxygen Concentration - - Weight 111.1 kg (245 lb) 06/01/2016 8:34 AM EDT Height 182.9 cm (6') 06/01/2016 8:34 AM EDT Body Mass Index 33.23 06/01/2016 8:34 AM EDT documented in this encounter Progress Notes * Mayr Ko MD - 06/01/2016 8:30 AM EDT OUTPATIENT VASCULAR SURGERY CONSULTATION Reason for Visit: varicose veins Prior Vascular History: Varicose veins without prior intervention History of Present Illness: Mr. Park is a 46 yo male referred by Dr. Paige for evaluation of varicose veins. He was seen by Dr. Cihld on our offices over three years ago and urged to wear compression stockings. Recently, Mr. Park was in the ED for right thigh pain. CTA and MRI showed what appears to be an adductor hematoma that was prompted by local trauma. He does not recall directly hitting the area, only felt sudden shooting pains and twinges while walking. Those symptoms have since completely resolved. His concern is that the varicose veins may have ruptured and caused a bleed. He denies any color change of the skin, thrombophlebitis symptoms, or palpable cords. He also describes severe foot neuropathy. He had previuosly been diagnosed with high glucose levels, but denies having a formal diabetes diagnosis. He takes gabapentin without much improvement. He denies ulcers, claudication, or ischemic rest pain. He smokes at least 1 ppd and drinks large amounts of EtOH daily. He describes himself as an alcoholic with a poor lifestyle. He is overall concerned about his health and wants to make changes. Problem List Patient Active Problem List Diagnosis ??? Swelling of thigh ??? Left shoulder pain ??? Neuropathy ??? Cervical radiculopathy ??? Elbow pain, right Overview Note: ??? Ulnar nerve entrapment at elbow Overview Note: Mild delay just distal to olecranon on EMG 12/21/10 Review of Systems: Constitutional (weight change, fever) - Denies Neuro (dizziness, seizures, numbness, tingling) - neuropathy of feet Eyes (vision) - Denies Ears, nose, throat (hearing) - Denies Cardiovascular (CP) - Denies Respiratory (SOB) - Denies GI (abd pain, nausea, emesis, blood in stool) - Denies (hematuria, dysuria, frequency) - Denies Muscoloskeletal (extremity pain, weakness) - Denies Skin (ulcers, rashes) - Denies Past Medical History: Diagnosis Date ??? High blood pressure Past Surgical History: Procedure Laterality Date ??? SHOULDER ARTHROSCOPY left knee surgery Appendectomy as a child Current Outpatient Prescriptions Medication Sig Dispense Refill ??? hydroCHLOROthiazide (HYDRODIURIL) 25 mg Tablet Take 25 mg by mouth daily. ??? gabapentin (NEURONTIN) 300 mg Capsule Take 900 mg by mouth daily. ??? aspirin 81 mg EC tablet Take 81 mg by mouth daily. ??? ibuprofen (ADVIL;MOTRIN) 200 mg tablet Take 800 mg by mouth every 6 hours as needed. ??? ascorbic acid (VITAMIN C) 500 mg tablet Take 500 mg by mouth daily. ??? atenolol (TENORMIN) 100 mg tablet Take 100 mg by mouth daily. ??? Fteh-Gfxell-FvuvmgSsjw-D3-C-Mn (POZZFWYADAT-DWBAEFGTSNQ-MAN D3) 500-400-667 mg-mg-unit Cap Take1 tablet by mouth daily. ??? multivitamin with minerals (THERA-M) 9-0.4 mg tablet Take 1 tablet by mouth daily. No current facility-administered medications for this visit. Functional Status/Social Hx: Walks independently, Lives at home in [place] [place] [facility], , employed, Drives Car, large amounts of tobacco and EtOH use Family Hx: Negative for Thrombosis, Bleeding Disorders, or aneurysms Physical Exam: Temp: -- Heart Rate: [76] Resp: [18] BP: (161)/(98) SpO2: -- Heart Rate from SPO2: -- Estimated body mass index is 33.23 kg/(m^2) as calculated from the following: Height as of 04/30/16: 182.9 cm (6'). Weight as of 04/30/16: 111.1 kg (245 lb). General - NAD, appears stated age, pleasant Neuro - Alert and Oriented, Motor Sensory grossly intact in all extremities, CN 2-12 normal Skin - No prominent markings or lesions Ear, Nose, Throat - No masses, No lesions Cardiac - RRR, no murmurs Lungs - Clear Abd - Soft, NT, ND, No palpable pulsatile masses Musculoskeletal- full ROM upper and lower extremities Psych- alert oriented X3 , Extremities - Warm, pink, no edema, brisk capillary refill. Diffuse varicose veins in both legs along the medial thighs and medial calves. No palpable cords, thrombophlebitis changes, or tenderness. Right thigh soft and without tenderness. Both feet with decreased sensory ability around the toes. Vascular Exam: palpable bilateral carotid, radial, femoral and popliteal pulses. Palpable right PT and left DP. Aortic pulse very prominent Labs: None Studies: Images personally reviewed. CTA and MRI show intramuscular hematoma without blush of contrast. Assessment and Plan: Mr. Park has multiple issues. His main concern is that the right thigh hematoma was caused by his varicose veins. I do not see any link between those on imaging and they are not known to cause intramuscular bleeds. I explained this and he seemed relieved. His veins cause some edema and aching over time. I prescribed him compression stockings and asked that he wear those for 3 months to see if hisaching and foot symptoms improve. We will then assess venous incompetence with a duplex. He has severe neuropathy, smoking, and other poor lifestyle habits. He is at high risk of cardiovascular disease and PAD. We will obtain ABIs and toe pressures in three months to assess for PAD. He will work on cutting back on tobacco and EtOH. He has an appt next week with his PCP to screen for diabetes and to discuss gabapentin management. He has a very prominent aortic pulse. Will obtain screening duplex for AAA at next visit. RTC in 3 months with above studies. Mary Ko MD, MS Section of Vascular Surgery documented in this encounter Plan of Treatment Upcoming Encounters Date Type Department Care Team (Late st Contact Info) Description 10/03/2023 2:00 PM EDT Office [place] [address] Carlos Veloz MD [facility] DR [place] [address] documented as of this encounter Visit Diagnoses Diagnosis Varicose veins of leg with swelling, unspecified laterality Neuropathic pain Neuralgia, neuritis, and radiculitis, unspecified Cigarette nicotine dependence without complication Tobacco use disorder documented in this encounter Care Teams Project Economist Relationship Specialty Start Date End Date Monica Paige PA [address] [place] [id number] PCP - General Family Medicine 05/14/16 08/12/18 documented as of this encounter
--- OUTSIDE RECORDS SUMMARY | 2023-10-03 01:24 | XMS_ITS | Encounter Summary ---
Author Organization [facility] [place] [address] Care Team Providers Care Gut Carrier Name Role Phone Mirian Malcolm MD Primary Care Provider [phone] Encounter Details Date Type Department Care Team (Late st Contact Info) Description 08/13/2018 2:45 AM EDT Ancillary Procedure [place] [phone] Social History Tobacco Use Types Packs/Day Years [...] 2:00 PM EDT Office [place] [address] Carlos Veloz MD [facility] DR [place] [address] documented as of this encounter Procedures Procedure Name Priority Date/Time Associated Diagnosis Comments FILM LIBRARY STORAGE ONLY DX LOWER EXTREMITY STAT 08/13/2018 2:34 AM EDT documented in this encounter Results * Film Library- Storage Only DX Lower Extremity (08/13/2018 2:34 AM EDT) Narrative [facility] - 08/13/2018 2:34 AM EDT This exam is auto-finalizing. It's purpose is for storage only. Williams Bridges MD IMG FILM LIBRARY ORD ERABLES [facility] [place], [place] documented in this encounter Visit Diagnoses Not on filedocumented in this encounter Care Teams Gut Carrier Relationship Specialty Start Date End Date Mirian Malcolm MD [address] [place] [address] PCP - General Family Medicine 08/13/18 documented as of this encounter
--- OUTSIDE RECORDS SUMMARY | 2023-10-03 01:24 | XMS_ITS | Encounter Summary ---
Author Organization [facility] Address [facility] [place] [address] Care Team Providers Care Dinner Cook Name Role Phone Monica Paige Primary Care Provider [phone] Reason for Visit * Reason Comments Varicose Veins PT HERE FOR NEW PROB MATY LEFT SIDED VARICOSE VEINS PT SEEN AT [facility] RECENTLY AND WAS TOLD HE HAD BLOOD CLOTS HERE FOR CONSULTATION * Consultation (Urgent) - Specialty Diagnoses / Procedures Referred By Giles girard Referred To Contact Vascular Surgery Diagnoses bleeding varicose veins Procedures bleeding varicose veins Quang Montesinos, SUSTAINABLE [facility] [address] [place] [address] [place] [address] [facility] Surg [address] [place] [address] Referral ID Status Reason Start Date Expiration Date V isits Requested Visits Authorized [id number] Consult, Test & Treat 02/19/2018 02/19/2019 2 2 Encounter Details Date Type Department Care Team (Late st Contact Info) Description 02/20/2018 11:30 AM EST Office Visit [place] [address] Raúl Farmer MD [facility] [place] [address] Varicose veins of both lower extremities with pain Social History Tobacco Use Types Packs/Day Years [...] Sign Reading Time Taken Comments Blood Pressure 167/104 02/20/2018 11:20 AM EST Pulse 57 02/20/2018 11:20 AM EST Temperature - - Respiratory Rate 18 02/20/2018 11:20 AM EST Oxygen Saturation - - Inhaled Oxygen Concentration - - Weight 111.1 kg (245 lb) 02/20/2018 11:20 AM EST Height 182.9 cm (6') 02/20/2018 11:20 AM EST Body Mass Index 33.23 02/20/2018 11:20 AM EST documented in this encounter Progress Notes * Ha Perez MD - 02/20/2018 11:30 AM EST Reason for visit: Follow up varicose veins Interval history: Mr. Park was last seen in May 2016 for varicose veins. Compression stockings were recommended as well as ABIs and an AAA duplex. He was lost to follow up after this. He comes in today describing two separate episodes of thigh pain associated with redness, one over a varicose vein on the right medial thigh, and one more recently over the left medial thigh. He saw and OSH provider who obtained a DVT duplex which was negative. He was started on Eliquis and Keflex and a daily aspirin and referred back to our clinic for follow up. Review of Systems: 10 point review of systems negative except as noted Prior vascular history: Patient Active Problem List Diagnosis ??? Swelling of thigh ??? Left shoulder pain ??? Neuropathy ??? Cervical radiculopathy ??? Elbow pain, right Overview Note: ??? Ulnar nerve entrapment at elbow Overview Note: Mild delay just distal to olecranon on EMG 12/21/10 Family history of varicose veins. Social History Socioeconomic History ??? Marital status: Spouse name: Not on file ??? Number of children: Not on file ??? Years of education: Not on file ??? Highest education level: Not on file Social Needs ??? Financial resource strain: Not on file ??? Food insecurity - worry: Not on file ??? Food insecurity - inability: Not on file ??? Transportation needs - medical: Not on file ??? Transportation needs - non-medical: Not on file Occupational History ??? Not on file Tobacco Use ??? Smoking status: Current Every Day Smoker Packs/day: 1.00 Years: 25.00 Pack years: 25.00 Types: Cigarettes ??? Smokeless tobacco: Never Used Substance and Sexual Activity ??? Alcohol use: Yes Alcohol/week: 15.0 oz Types: 25 Shots of liquor per week ??? Drug use: No ??? Sexual activity: Not on file Comment: deferred Other Topics Concern ??? Not on file Social History Narrative ??? Not on file Physical Exam: Temp: -- Heart Rate: [57] Resp: [18] BP: (167)/(104) SpO2: -- Heart Rate from SPO2: -- General: NAD, resting comfortably HEENT: PERRL, anicteric sclerae CVS: Regular rate Pulm: Normal work of breathing on room air GI: Abdomen soft, non tender, non distended, palpable aortic pulsation MS: RLE: No edema, large varicosities throughout the thigh and calf. LLE: No edema. Large varicosities throughout the thigh and calf, thrombosed varix over medial knee Neuro: CN 2-12 grossly intact, nonfocal, moving all extremities. Sensation intact in extremities bilaterally symmetric. Motor function intact in extremities, bilaterally symmetric. Vascular: R L Carotid 2/2 2/2 Radial 2/2 2/2 Femoral 2/2 2/2 Popliteal 2/2 2/2 DP 2/2 2/2 PT 2/2 2/2 Studies: Valve incompetence study today: Findings: ?? Right ?Reflux?Diameter (mm) ??Depth (mm) ?? Common [...] Calf ?Reflux ? 3.3 ? 4.2 ?? GSV,??Distal Calf ? Reflux ? 2.7 ? 3.5 [...] ? 6.8 ?? SSV ?Competent ? Interpretation: ?? RIGHT: There is reflux in the common femoral vein (>2.0 seconds) consistent with isolated deep venous valvular incompetence. ?? There is reflux in the great saphenous [...] with the GSV in the proximal calf. ?? LEFT: Thrombosed varicose veins noted at the medial knee. ?? There is reflux in the common femoral vein (>2.0 seconds) consistent with isolated deep venous valvular incompetence. ?? There is reflux in the great saphenous [...] GSV is reidentified in the mid calf. ?? There is reflux in the anterior saphenous vein (>2.0 seconds) consistent with superficial venous valvular incompetence. The anterior saphenous vein leaves the fascia in the prox/mid thigh and becomes varicose. 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 His current symptoms are coming from a thrombosed varix in his left knee. The treatment for this is warm compresses and NSAIDS. I have recommended thigh high compression stockings to him to see if this helps with his symptoms. He will also use the compresses and ibuprofen for symptom management. He will discontinue his Eliquis and Keflex which were recently started for the thrombosed varix. I have urged him to stop smoking. I have advised that he start a daily 81 mg aspirin for primary prevention. He has palpable DP and PT pulses and no symptoms of claudication. He does have a prominent aortic pulse, we will therefore perform a screening AAA duplex at his next follow up as outlined in Dr. Ko's note from May 2016. I discussed with him symptoms which would be more concerning and may warrant treatment including anascending thrombus or redness that could indicate GSV propagating thrombus, or severe leg swelling that could indicate DVT. He will call us or go to an ED if he experiences either of these things. RTC in 2 months to discuss response to compression therapy. Discussed with Dr. Stefani Perez Vascular Surgery documented in this encounter Plan of Treatment Upcoming Encounters Date Type Department Care Team (Late st Contact Info) Description 10/03/2023 2:00 PM EDT Office Visit [place] [address] Carlos Veloz MD [facility] [place] [address] documented as of this encounter Visit Diagnoses Diagnosis Varicose veins of both lower extremities with pain Varicose veins of lower extremities with other complications documented in this encounter Care Teams Dinner Cook Relationship Specialty Start Date End Date Monica Paige PA [address] [place] [address] PCP - General Family Medicine 05/14/16 08/12/18 documented as of this encounter
--- OUTSIDE RECORDS SUMMARY | 2023-10-03 01:24 | XMS_ITS | Encounter Summary ---
Author Organization [facility] [place] [address] Care Team Providers Care Secretary Book Keeper Name Role Phone Mirian Malcolm MD Primary Care Provider [phone] Encounter Details Date Type Department Care Team (Late st Contact Info) Description 08/13/2018 7:30 AM EDT Ancillary Procedure [place] [address] Social History Tobacco Use Types Packs/Day Years [...] 2:00 PM EDT Office [place] [address] Carlos Veloz MD [facility] [place] [address] documented as of this encounter Procedures Procedure Name Priority Date/Time Associated Diagnosis Comments REQUEST FOR 2ND READ CT SPINE STAT 08/13/2018 6:44 AM EDT documented in this encounter Results * Request For 2nd Read CT Spine [...] performed with intravenous contrast. Study performed at [facility] at 0111 hours, August 13, [...] pelvis [facility] [...] on filedocumented in this encounter Care Teams Secretary Book Keeper Relationship Specialty Start Date End Date Mirian Malcolm MD [address] [place] [address] PCP - General Family Medicine 08/13/18 documented as of this encounter
--- OUTSIDE RECORDS SUMMARY | 2023-10-03 01:24 | XMS_ITS | Encounter Summary ---
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 (specimen) 08/14/2018 3:37 AM EDT 08/14/2018 3:44 AM EDT Narrative Resulting Agency Comment Spec In Lab Bismark Herrera MD HEMATOLOGY ORDERA BLES [facility] [place] [address] * (ABNORMAL) BMP w/fasting Glucose (08/14/2018 3:37 AM EDT) Glucose Fasting 159(H) 65 - 99 mg/dL [facility] Comment: ?Fasting* Glucose Interpretive Criteria [...] of Diabetes Mellitus, Position Statement from the [place] [employer]. ??Diabetes Care, Volume 33, Supplement 1, Feb 2009 Blood Urea Nitrogen 16 10 - 20 mg/dL [facility] Creatinine 0.89 0.80 - 1.50 mg/dL [facility] Sodium 134(L) 135 - 145 mmol/L [facility] Potassium 4.1 3.5 - 5.0 mmol/L [facility] Comment: Please note: ??Patients with WBC >100,000 may have falsely elevated Potassium levels. ??For accurate Potassium quantification in these patients send serum separator tube (gold top) for subsequent determinations. ??Contact the Clinical Chemistry Laboratory if there are any questions. Chloride 100 98 - 107 mmol/L [facility] Carbon Dioxide 25 22 - 31 mmol/L [facility] Anion Gap 9 5 - 15 mmol/L [facility] Calcium 7.6(L) 8.5 - 10.5 mg/dL [facility] Est Glomerular Filtration Rate 100 >=60 mL/min/1. 73 m?? [facility] Comment: The eGFR was calculated using the CKD-EPI equation. As with all creatinine based estimates of kidney function, eGFR values calculated with the CKD-EPI equation are not accurate in patients with acute kidney failure, extremes of body mass or the acutely ill. http://Factyle/[facility] CITYnkf eGFR 116 >=60 mL/min/1. 73 m?? [facility] Comment: The eGFR was calculated using the CKD-EPI equation. As with all creatinine based estimates of kidney function, eGFR values calculated with the CKD-EPI equation are not accurate in patients with acute kidney failure, extremes of body mass or the acutely ill. http://Factyle/[facility] CITYnkf Blood specimen (specimen) 08/14/2018 3:37 AM EDT 08/14/2018 3:44 AM EDT Narrative Resulting Agency Comment Spec In Lab Carlos Mark MD CHEMISTRY ORDERABLES [facility] [place] [id number] * XR Femur 2 views Left (Generic) [...] is auto-finalizing. No interpretation was done. Caesar E Fern MD IMG FLUORO ORDERA BLES Performing Organization Address [facility] de Phone Number [place], [place] * EKG 12 Lead (08/13/2018 10:00 AM EDT) Ventricular rate 68 BPM MUSE SYSTEM Atrial Rate 68 BPM MUSE SYSTEM P-R Interval 178 ms MUSE SYSTEM QRS Duration 80 ms MUSE SYSTEM Q-T Interval 410 ms MUSE SYSTEM QTC Calculated (Bezet) 435 ms MUSE SYSTEM Calculated P [place] 49 degrees MUSE SYSTEM Calculated R [place] 29 degrees MUSE SYSTEM Calculated T [place] 62 degrees MUSE SYSTEM INTERPRETATION Normal sinus rhythm Normal ECG When compared with ECG of 13-AUG-2018 05:35, (unconfirmed) No significant change was found Confirmed by MD Carlos, Jermaine ([id number]) on 08/13/2018 1:55:11 PM MUSE SYSTEM 08/13/2018 10:0 0 AM EDT 08/13/2018 1:55 PM EDT Carlos Mark MD ECG ORDERABLES Performing Organization Address [facility] de Phone Number MUSE SYSTEM * XR Knee 1-2 Views Right (Generic) (08/13/2018 6:46 AM EDT) Anatomical Region Laterality Modality Knee Right Digital Radiogra phy Impressions 08/13/2018 6:47 AM EDT No fracture or dislocation of the right knee. Thank you for letting us participate in the care of this patient. For questions regarding this report, please contact the number below. ? Electronically signed by: Brianne Hathaway [facility] ([phone]), at 08/13/2018 6:47 AM Narrative 08/13/2018 6:47 [...] number below. Electronically signed by: Brianne Hathaway [facility]([phone]), at 08/13/2018 6:47 AM Caesar Shirley MD [...] below. ? Electronically signed by: Brianne Hathaway [facility] ([phone]), at 08/13/2018 8:13 AM Narrative 08/13/2018 8:13 AM EDT EXAMINATION: REQUEST [...] performed with intravenous contrast. Study performed at [facility] at 0111 hours, August 13, 2018 COMPARISON: [...] [facility] COMPARISON: [...] contact the number below. ? Narrative 08/13/2018 7:57 AM EDT EXAMINATION: REQUEST [...] Omnipaque 350 was used. Study performed at [facility] at 0111 hours, August 13, 2018 COMPARISON: [...] of Omnipaque [facility] COMPARISON: [...] below. ? Electronically signed by: Brianne Hathaway [facility] ([phone]), at 08/13/2018 8:04 AM Narrative 08/13/2018 8:04 [...] without with intravenous contrast. Study performed at [facility] at 0055 hours, August 13, 2018 [...] performed withoutwith intravenous contrast. Study performed at [facility] at 0055 hours, August 13, [...] number below. Electronically signed by: Brianne Hathaway [facility]([phone]), at 08/13/2018 8:04 AM Caesar Shirley MD IMG OUTSIDE INTER PRETATION ORDERABLES * EKG 12 Lead (08/13/2018 5:35 AM EDT) Ventricular rate 63 BPM MUSE SYSTEM Atrial Rate 63 BPM MUSE SYSTEM P-R Interval 184 ms MUSE SYSTEM QRS Duration 94 ms MUSE SYSTEM Q-T Interval 438 ms MUSE SYSTEM QTC Calculated (Bezet) 448 ms MUSE SYSTEM Calculated P [place] 60 degrees MUSE SYSTEM Calculated R [place] 30 degrees MUSE SYSTEM Calculated T [place] 52 degrees MUSE SYSTEM INTERPRETATION Normal sinus rhythm Nonspecific T wave abnormality Abnormal ECG No previous ECGs available Confirmed by MD SHETH BRUCE ([id number]) on 08/13/2018 6:22:28 PM MUSE SYSTEM 08/13/2018 5:35 AM EDT 08/13/2018 6:22 PM EDT Caesar Shirley MD ECG ORDERABLES MUSE SYSTEM * ABORH Recheck Status (08/13/2018 5:33 AM EDT) ABORH Recheck Order Order Placed [facility] ABORH Type Recheck Complete [facility] Blood specimen (specimen) 08/13/2018 5:33 AM EDT 08/13/2018 5:33 AM EDT Narrative Resulting Agency Comment Spec In Lab Camila Uriarte MD BLOOD BANK LAB ORDER ISAMAR Performing Organization Address City/[facility]/ZIP Co de Phone Number [facility] [place] [address] * Antibody screen (08/13/2018 5:33 AM EDT) Ab Screen Interp Negative [facility] Expires at [id number] on: 08/16/2018 [facility] Blood specimen (specimen) 08/13/2018 5:33 AM EDT 08/13/2018 5:33 AM EDT Narrative Resulting Agency Comment Spec In Lab Camila Uriarte MD BLOOD BANK LAB ORDER ISAMAR [facility] [place] [address] * ABO/Rh Typing (08/13/2018 5:33 AM EDT) ABORH Type O Pos [facility] Blood specimen (specimen) 08/13/2018 5:33 AM EDT 08/13/2018 5:33 AM EDT Narrative Resulting Agency Comment Spec In Lab Camila Uriarte MD BLOOD BANK LAB ORDER ISAMAR [facility] [place] [address] * Alaniz Tube Hold (08/13/2018 5:15 AM EDT) [facility] Alaniz Hold Sample in lab. [facility] Blood specimen (specimen) Venous Draw / Unknown 08/13/2018 5:15 AM EDT 08/13/2018 5:32 AM EDT Camila Uriarte MD CHEMISTRY ORDERABLES [facility] [place] [address] * Gold Tube HOLD (08/13/2018 5:15 AM EDT) [facility] Gold Hold Sample in lab. [facility] Blood specimen (specimen) Venous Draw / Unknown 08/13/2018 5:15 AM EDT 08/13/2018 5:32 AM EDT Camila Uriarte MD CHEMISTRY ORDERABLES [facility] [place] [address] * (ABNORMAL) Differential, Automated (08/13/2018 5:15 AM EDT) Neutrophil % 83.7 % [facility] Neutrophil Absolute 14.46(H) 1.70 - 6.10 x10(3)/mc L [facility] Lymph % 9.4 % [facility] Lymphocytes Abs 1.6 0.9 - 3.2 x10(3)/[facility]ORATORY Monocyte % 5.6 % [facility] Monocyte Abs 1.0(H) 0.3 - 0.9 x10(3)/[facility] Eos % 0.2 % [facility] Eosinophils Abs 0.0 0.0 - 0.4 x10(3)/[facility] Basophil % 0.3 % [facility] Baso Absolute 0.1 0.0 - 0.1 x10(3)/[facility] Immature Gran % 0.80 % [facility] Comment: Immature granulocytes(IG's)percentage and absolute count will include metamyelocytes, myelocytes, and promyelocytes. Blood smears from CBCs yielding IG's will be scanned manually for concordance. If this scan disagrees with the automated IG or if promyelocytes are noted, a manual differential will be performed. Immature Gran Absolute 0.14(H) 0.00 - 0.04 x10(3)/[facility] Blood specimen (specimen) 08/13/2018 5:15 AM EDT 08/13/2018 5:31 AM EDT Narrative Resulting Agency Comment Spec In Lab Camila Uriarte MD HEMATOLOGY ORDERABLE S [facility] [place] [address] * (ABNORMAL) Hemogram (08/13/2018 5:15 AM EDT) White Blood Cell 17.3(H) 4.0 - 9.5 x10(3)/[facility] Red Blood Cell 4.64 4.58 - 5.54 x10(6)/[facility] Hemoglobin 15.2 13.7 - 16.5 gm/dL [facility] Hematocrit 44.9 40.5 - 48.5 % [facility] Mean Cell Volume 96.8(H) 82.9 - 93.1 fL [facility] Mean Cell Hemoglobin 32.8(H) 27.5 - 32.1 pg [facility] Mean Cell Hemoglobin Concentration 33.9 32.0 - 35.7 gm/dL [facility] Platelet 219 145 - 357 x10(3)/mc L [facility] RDW Standard Deviation 42.9 36.0 - 45.0 [facility] RDW coefficient of variation 12.0 11.4 - 13.8 % [facility] Mean Platelet Volume 12.2 7.6 - 12.9 [facility] NRBC% auto 0.0 % [facility] NRBC Absolute 0.000 0.000 - 0.000 x10(3)/mc L [facility] Blood specimen (specimen) 08/13/2018 5:15 AM EDT 08/13/2018 5:31 AM EDT Narrative Resulting Agency Comment Spec In Lab Camila Uriarte MD HEMATOLOGY ORDERABLE S Performing Organization Address [facility] [place] [address] * APTT (08/13/2018 5:15 AM EDT) Partial Thromboplastin Time 29 25 - 37 sec [facility] Comment: The PTT is NOT appropriate for heparin monitoring. Use the Anti-Xa level for heparin monitoring (HEP UFH) or LMWH monitoring (HEP LMW). A PTT less than 37 seconds generally indicates adequate hemostasis. Blood specimen (specimen) 08/13/2018 5:15 AM EDT 08/13/2018 5:31 AM EDT Narrative Resulting Agency Comment Spec In Lab Caesar Shirley MD HEMATOLOGY ORDERA BLES Performing Organization Address [facility]/ZIP Co de Phone Number [facility] [place] [address] * Prothrombin Time (08/13/2018 5:15 AM EDT) Prothrombin Time 10.7 9.4 - 12.5 sec [facility] International Normalization Ratio 0.9 [facility] Comment: An INR <2.0 indicates [...] Lab Caesar Shirley MD HEMATOLOGY ORDERA BLES [facility] [place] [address] * (ABNORMAL) Basic Metabolic Panel (non-fasting) (08/13/2018 5:15 AM EDT) Pathologist [facility] Glucose 142 65 - 199 mg/dL [facility] Comment:Diabetes: >=200 mg/d L plus symptoms Blood Urea Nitrogen 12 10 - 20 mg/dL [facility] Creatinine 0.67(L) 0.80 - 1.50 mg/dL [facility] Sodium 139 135 - 145 mmol/L [facility] Potassium 3.6 3.5 - 5.0 mmol/L [facility] Comment: Please note: ??Patients with WBC >100,000 may have falsely elevated Potassium levels. ??For accurate Potassium quantification in these patients send serum separator tube (gold top) for subsequent determinations. ??Contact the Clinical Chemistry Laboratory if there are any questions. Chloride 102 98 - 107 mmol/L [facility] Carbon Dioxide 23 22 - 31 mmol/L [facility] Anion Gap 14 5 - 15 mmol/L [facility] Calcium 8.2(L) 8.5 - 10.5 mg/dL [facility] Est Glomerular Filtration Rate 113 >=60 mL/min/1. 73 m?? [facility] Comment: The eGFR was calculated using the CKD-EPI equation. As with all creatinine based estimates of kidney function, eGFR values calculated with the CKD-EPI equation are not accurate in patients with acute kidney failure, extremes of body mass or the acutely ill. http://Factyle/[facility] CITYnk eGFR 131 >=60 mL/min/1. 73 m?? [facility] Comment: The eGFR was calculated using the CKD-EPI equation. As with all creatinine based estimates of kidney function, eGFR values calculated with the CKD-EPI equation are not accurate in patients with acute kidney failure, extremes of body mass or the acutely ill. http://Factyle/[facility] CITYnkf Blood specimen (specimen) 08/13/2018 5:15 AM EDT 08/13/2018 5:31 AM EDT Narrative Resulting Agency Comment Spec In Lab Caesar Shirley MD CHEMISTRY ORDERAB LES Performing Organization Address [facility] Co de Phone Number [facility] [place] [address] * Film Library- Storage Only DX Lower Extremity (08/13/2018 2:34 AM EDT) Narrative [facility] - 08/13/2018 2:34 AM EDT This exam is auto-finalizing. It's purpose is for storage only. Williams Bridges MD [facility] FILM LIBRARY ORD ERABLES Performing Organization Address City/[facility]/ZIP Co de Phone Number [place], [place] * Film Library- Storage Only CT Head And Spine (08/13/2018 2:31 AM EDT) Narrative [facility] - 08/13/2018 2:31 AM EDT This exam is auto-finalizing. It's purpose is for storage only. Williams Bridges MD [facility] FILM LIBRARY ORD ERABLES Performing Organization Address City/[facility] de Phone Number [place], [place] * Film Library- Storage Only CT Spine (08/13/2018 2:28 AM EDT) Narrative [facility] - 08/13/2018 2:28 AM EDT This exam is auto-finalizing. It's purpose is for storage only. Williams Bridges MD [facility] FILM LIBRARY ORD ERABLES Performing Organization Address [facility] de Phone Number [place], [place] * Film Library- Storage Only CT Chest Abdomen Pelvis (08/13/2018 2:27 AM EDT) Narrative [facility] - 08/13/2018 2:27 AM EDT This exam is auto-finalizing. It's purpose is for storage only. Williams Bridges MD [facility] FILM LIBRARY ORD ERABLES Performing Organization Address [facility] Phone Number [place], [place] documented in this encounter Visit Diagnoses Diagnosis L IT fx s/p CMN 08/13/18 (Magdiel)- Primary Pre-op exam Preoperative examination, unspecified Closed displaced intertrochanteric fracture of left femur, initial encounter Postoperative anemia due to acute blood loss Acute posthemorrhagic anemia documented in this encounter Admitting Diagnoses Diagnosis Intertrochanteric [...] 08/14/18 at 0900, Until Discontinued, Routine Given 08/14/2018 8:12 AM EDT 100 mg atorvastatin (LIPITOR) tablet 10 mg 10 mg, Oral, DAILY, First dose on Sat08/14/18 at 0900, Until Discontinued, Routine Given 08/15/2018 9:58 AM EDT 10 mg Given 08/14/2018 8:12 AM EDT 10 mg ceFAZolin (ANCEF) 2g in dextrose 5% 100 mL 2 g, Intravenous, EVERY 8 HOURS, First dose on Sat08/13/18 at 0947, Until Discontinued, Administer over 30 Minutes, Indication for (Active or Suspected): Prophylaxis New Bag 08/13/2018 10:33 AM EDT 2 g 200 mL /hr ceFAZolin (ANCEF) 2g in dextrose 5% 100 mL 2 g, Intravenous, EVERY 8 HOURS, 3 doses, First dose (after last modification) on Sat08/14/18 at 0200, Last dose on Sat08/14/18 at 1800, Administer over 30 Minutes, Indication for (Active or Suspected): Prophylaxis New Bag 08/14/2018 5:05 PM EDT 2 g 200 mL/hr New Bag 08/14/2018 10:17 AM EDT 2 g 200 mL/hr New Bag 08/14/2018 2:40 AM EDT 2 g 200 mL/hr enoxaparin (LOVENOX) injection 40 mg 40 mg, Subcutaneous, ONCE, 1 dose, On Sat08/15/18 at 1500, Routine Given 08/15/2018 5:04 PM EDT 40 mg fentaNYL (PF) 50mcg/mL injection 50 mcg, Intravenous, EVERY 30 MIN PRN, Starting on Sat08/13/18 at 0522, Until Sat08/14/18 at 0712, Pain, If medication ordered subcutaneously, do not administer more than 2 mL as a single injection., STAT Given 08/13/2018 1:56 PM EDT 50 mcg Given 08/13/2018 1:20 PM EDT 50 mcg Given 08/13/2018 10:32 AM EDT 50 mcg folic acid (FOLVITE) tablet 1,000 mcg 1,000 [...] Given 08/13/2018 1:58 PM EDT 25 mg HYDROmorphone (DILAUDID) injection 0.4-0.6 mg 0.4-0.6 mg, Intravenous, EVERY 5 MIN PRN, [...] fentanyl for breakthrough pain., PACU Recovery, Routine Given 08/13/2018 7:14 PM EDT 0.4 mg lisinopril (PRINIVIL;ZESTRIL) tablet 20 mg 20 mg, Oral, DAILY, First dose on Judith 08/14/18 at 0900, Until Discontinued, Routine Given 08/14/2018 8:11 AM EDT 20 mg LORazepam (ATIVAN) injection 1-3 mg 1-3 mg, Intravenous, EVERY 4 HOURS PRN, Starting on Sat08/13/18 at 2211, Until Sat08/15/18 at 2039, alcohol/benzodiazepine withdrawal- uncomplicated, When given intravenously, the [...] Given 08/14/2018 8:35 PM EDT 6 mg morphine 4 mg/mL injection 4 mg 4 mg, Intravenous, ONCE, 1 dose, On Sat08/13/18 at 0444, STAT Given 08/13/2018 4:47 AM EDT 4 mg multivitamin with minerals (THERA-M) tablet 1 tablet 1 tablet, Oral, DAILY, First dose on Sat08/14/18 at 0900, Until Discontinued, Routine Given 08/15/2018 9:59 AM EDT 1 tablet Given 08/14/2018 8:12 AM EDT 1 tablet nicotine (NICODERM CQ) 14 mg/24 hr patch 14 mg 14 mg (1 patch), Transdermal, Administer over 24 Hours, ONCE, 1 dose, On Sat08/13/18 at 0355, STAT Given 08/13/2018 4:03 AM EDT 14 mg 10- Arm Upper (Right ) nicotine (NICODERM CQ) 14 mg/24 hr patch 14 mg 14 mg (1 patch), Transdermal, Administer over 24 Hours, ONCE, 1 dose, On Sat08/14/18 at 1115, Routine Given 08/14/2018 11:14 AM EDT 14 mg 10- Arm Upper (Right ) oxyCODONE (ROXICODONE) immediate release tablet 10 mg 10 mg, Oral, EVERY 4 HOURS PRN, Starting on Sat08/13/18 at 0946, Until Sat08/15/18 at 203, Pain, moderate pain (4-6), For moderate pain (4-6). Do not exceed 15 mg in 4 hours. If pain not relieved, call provider., Routine Given 08/14/2018 8:11 AM EDT 10 mg oxyCODONE (ROXICODONE) immediate release tablet 15 mg 15 mg, Oral, EVERY 4 HOURS PRN, Starting on Sat08/13/18 at 0946, Until Sat08/15/18 at 2038, Pain, severe pain (7-10), For severe pain (7-10). Do not exceed 15 mg in 4 hours. If pain not relieved, call provider., Routine Given 08/15/2018 2:44 PM EDT 15 mg Given 08/15/2018 10:18 [...] on Sat08/13/18 at 0948, Until Sat08/15/18 at 2038 New Bag 08/13/2018 10:30 AM EDT 1,000 [...] - Reason: Transfer to a Procedural area)1506 (APR Hold - Provider: Admin Adt - Reason: Transfer to a Procedural area)1814 (APR Unhold - Provider: Avril Nielsen RN)2221 (Given - Provider: Caesar Avendano) 0600 (Not Given - Provider: Caesar Avendano - Reason: Patient/family refused)1333 (Given - Provider: Garcia Trivedi RN)2200 (Not Given - Provider: Caesar Avendano - Reason: Patient/family refused - Comment: Pt asked to not be woken for tylenol) 0615 (Given - Provider: Caesar Avendano)1442 (Given - Provider: Zenia Romo, ARNOL) atenolol (TENORMIN) tablet 100 mg 100 mg, Oral, DAILY, First dose on Sat08/14/18 at 0900, Until Discontinued, Routine 1506 (APR Hold - Provider: Admin Adt - Reason: Transfer to a Procedural area)2127 (APR Unhold - Provider: Admin Adt) 0812 (Given - Provider: Garcia Trivedi RN) 0900 (Not Given - Provider: Zenia Romo, ARNOL - Reason: See comment - Comment: BP 118/64) atorvastatin (LIPITOR) tablet 10 mg 10 mg, Oral, DAILY, First dose on Judith 08/14/18 at 0900, Until Discontinued, Routine 1506 (APR Hold - Provider: Admin Adt - Reason: Transfer to a Procedural area)2127 (APR Unhold - Provider: Admin Adt) 0812 [...] RN)1116 (Stopped - Provider: Naya Poe RN)1506 (MAR Hold - Provider: Admin Adt - Reason: Transfer to a Procedural area)1747 (Automatically Held - Provider: Admin Adt)1814 (MAR Unhold - Provider: Admin Adt) ceFAZolin (ANCEF) [...] Caesar Avendano)1017 (New Bag - Provider: Garcia Trivedi RN)1047 (Stopped - Provider: Garcia Trivedi, RN)1705 (New [...] 0958 (Given - Provider: Zenia Romo, ARNOL) gabapentin (NEURONTIN) capsule 900 mg 900 mg, Oral, DAILY, First dose on Sat08/13/18 at 0947, Until Discontinued, Routine 1035 (Given - Provider: Naya Poe RN)1506 (MAR Hold - Provider: Admin Adt - Reason: Transfer to a Procedural area)2127 (MAR Unhold - Provider: Admin Adt) 0811 (Given - Provider: Garcia Trivedi RN) 0958 (Given - Provider: Zenia Romo, RN) hydroCHLOROthiazide (HYDRODIURIL) tablet 25 mg 25 mg, Oral, DAILY, First dose on Sat08/13/18 at 0947, Until Discontinued, Routine 09 (Not Given - Provider: Naya Poe, RN - Reason: Medication not available - Comment: have not received [facility])1358 (Given - Provider: Kellie Alvarez RN)1506 (APR Hold - Provider: Admin Adt - Reason: Transfer to a Procedural area)2126 (APR Unhold - Provider: Admin Adt) 0811 [...] area)2126 (APR Unhold - Provider: Admin Adt) 0811 [...] on Sat08/13/18 at 0948, Until Discontinued, Routine 0948 (Not Given - Provider: Naya Poe RN - Reason: NPO)1506 (MAR Hold - Provider: Admin Adt - Reason: Transfer to a Procedural area)2100 (Automatically Held - Provider: Admin Adt)2126 (MAR Unhold - Provider: Admin Adt) 08 (Given - Provider: Garcia Trivedi RN)203 (Given - Provider: Caesar Avendano) 0959 (Given - Provider: Zenia Romo, ARNOL) senna-docusate (PERICOLACE) 8.6-50 mg per tablet 2 tablet 2 tablet, Oral, 2 TIMES DAILY, First dose on Sat08/13/18 at 0948, Until Discontinued, Routine 1035 (Given - Provider: Naya Poe RN)1506 (MAR Hold - Provider: Admin Adt - Reason: Transfer to a Procedural area)2100 (Automatically Held - Provider: Admin Adt)212 (MAR Unhold - Provider: Admin Adt) 0812 (Given - Provider: Garcia Trivedi RN)203 (Given - Provider: Caesar Avendano) 0958 (Given - Provider: Zenia Romo, ARNOL) sodium chloride 0.9 % (flush) flush 5 mL 5 mL, Intravenous, 2 TIMES DAILY, First dose on Sat08/13/18 at 0948, Until Discontinued, Routine 1036 (Given - Provider: Naya Poe RN)1506 (MAR Hold - Provider: Admin Adt - Reason: Transfer to a Procedural area)2100 (Automatically Held - Provider: Admin Adt)2126 (MAR Unhold - Provider: Admin Adt) 0811 (Given - Provider: Garcia Trivedi RN)2038 (Given - Provider: Caesar Avendano) 0900 (Given - Provider: Zenia Romo, ARNOL) thiamine (Vitamin B-1) tablet 100 mg 100 mg, Oral, DAILY, First dose on Judith 08/14/18 at 0900, Until Discontinued, Routine 0812 (Given - Provider: Garcia Trivedi RN) 0958 (Given - Provider: Zenia Romo, ARNOL) Continuous Medication Order 08/13/2018 08/14/2018 08/15/2018 sodium chloride 0.9% infusion 1,000 mL, at 100 mL/hr, Intravenous, CONTINUOUS, Starting on Sat08/13/18 at 0948, Until Sat08/15/18 at 2038 1030 (New Bag - Provider: Naya Poe RN)1506 (MAR Hold - Provider: Admin Adt - Reason: Transfer to a Procedural area)1656 (Anesthesia Volume Adjustment - Provider: Bg Moran CRNA)1814 (APR Unhold - Provider: Avril Nielsen, ARNOL) PRN Medication Order 08/13/2018 08/14/2018 08/15/2018 cyclobenzaprine (FLEXERIL) tablet 10 mg 10 mg, Oral, 3 TIMES DAILY PRN, Starting on Sat08/13/18 at 0945, Until Sat08/15/18 at 2039, Muscle spasms, Routine 1506 (MAR Hold - Provider: Admin Adt - Reason: Transfer to a Procedural area)1814 (MAR Unhold - Provider: Avril Nielsen, ARNOL) fentaNYL (PF) 50mcg/mL injection (CANCELED) 50 mcg, Intravenous, EVERY 30 MIN PRN, Starting on Sat08/13/18 at 0522, Until Sat08/14/18 at 0712, Pain, If medication ordered subcutaneously, do not administer more than 2 mL as a single injection., STAT 0540 (Given - Provider: Shahida Mcfarlane, RN)0816 (Given - Provider: Naya Poe, RN)1032 (Given - Provider: Naya Poe, RN)1320 (Given - Provider: Naya Poe, RN)1356 (Given - Provider: Kellie Alvarez RN)1506 (APR [...] fentanyl for breakthrough pain., PACU Recovery, Routine 1913 (Given - Provider: Kaitlyn Avina RN) lidocaine (XYLOCAINE) 10 mg/mL (1 %) injection 3 mg 3 mg (0.3 mL), Subcutaneous, ONCE PRN, 1 dose, Starting on Sat08/13/18 at 0946, Until Sat08/15/18 at 2038, for discomfort with PIV insertion, Routine 150 (APR Hold - Provider: Admin Adt - [...] - Reason: Transfer to a Procedural area)2127 (APR Unhold - Provider: Admin Adt) oxyCODONE [...] Caesar Avendano) 0811 (Given - Provider: Garcia Trivedi, RN)1222 (See Alternative - Provider: Garcia Trivedi, RN)1621 (See Alternative - Provider: Garcia Trivedi, RN)2036 (See Alternative - Provider: Caesar Avendano) 0616 (See Alternative - Provider: Caesar Avendano)1018 (See Alternative - Provider: Zenia D Demetrius, RN)1444 (See Alternative - Provider: Zenia Romo, ARNOL) [...] Trivedi RN)1222 (Given - Provider: Garcia Trivedi RN)162 (Given - Provider: Garcia Trivedi RN)2035 (Given [...] (See Alternative - Provider: Garcia Trivedi RN)1222 (See Alternative - Provider: Garcia Trivedi RN)1621 (See Alternative - Provider: Garcia Trivedi RN)2035 (See Alternative - Provider: Caesar Avendano) 0616 (See Alternative - Provider: Caesar Avendano)1018 (See Alternative - Provider: Zenia Romo RN)1444 (See Alternative - Provider: Zenia Romo RN) sodium chloride 0.9 % (flush) flush 5-20 [...] area)7 (APR Unhold - Provider: Admin Adt) Linked [...] 4 HOURS PRN, Starting on Sat08/13/18 at 221, Until Sat08/15/18 at 2038, alcohol/benzodiazepine withdrawal- uncomplicated, [...] Routine documented in this encounter Care Teams Agricultural Commodities Inspector Relationship Specialty Start Date End Date Mirian Malcolm MD [address] [place] [address] PCP - General Family Medicine 08/13/18 documented as of this encounter
--- OUTSIDE RECORDS SUMMARY | 2023-10-03 01:24 | XMS_ITS | Encounter Summary ---
Author Organization [facility] Address [facility] [place] [address] Care Team Providers Care Open Soaper Tender Name Role Phone Monica Paige Primary Care Provider [phone] Reason for Visit * Consultation (Urgent) - Specialty Diagnoses / Procedures Referred By Giles girard Referred To Contact Vascular Surgery Diagnoses bleeding varicose veins Procedures bleeding varicose veins Quang Montesinos, [facility] [address] [place] [address] [place] [address] [facility] Vascular Surg [address] [place] [address] Referral ID Status Reason Start Date Expiration Date V isits Requested Visits Authorized [id number] Consult, Test & Treat 02/19/2018 02/19/2019 2 2 Encounter Details Date Type Department Care Team (Late st Contact Info) Description 02/20/2018 9:00 AM EST Tech [place] [address] [place], [place], [place] Bleeding from varicose vein Social History Tobacco [...] 2:00 PM EDT Office [place] [address] Carlos Veloz MD [facility] [place] [address] documented as of this encounter Procedures Procedure Name Priority Date/Time Associated Diagnosis Comments VENOUS VALVULAR INCOMP, BILAT LEGS Routine 02/20/2018 9:04 AM EST Bleeding from varicose vein documented in this encounter Results * Venous Valvular Incomp, Bilat Legs (02/20/2018 9:04 AM EST) VB Text Report Department: Vascular Surgery Lab Patient: [id number] ([place]) CPT: 10452 ICD10: I83.899;I83.813;I8 7.2 Referring Physician: RAÚL FARMER [...] complications documented in this encounter Care Teams Open Soaper Tender Relationship Specialty Start Date End Date Monica Paige PA [address] [place] [address] PCP - General Family Medicine 05/14/16 08/12/18 documented as of this encounter
--- OUTSIDE RECORDS SUMMARY | 2023-10-03 01:24 | XMS_ITS | Encounter Summary ---
Author Organization [facility] Address [facility] [place] [address] Care Team Providers Care Fish And Game Warden Name Role Phone Monica Paige Primary Care Provider [phone] Encounter Details Date Type Department Care Team (Late st Contact Info) Description 06/28/2016 External Results [place] [phone] Cassy Quiñonez MD [facility] [place] [place] [address] Social History Tobacco Use Types Packs/Day Years [...] 2:00 PM EDT Office Visit [place] [address] Carlos Veloz MD [facility] [place] [address] documented as of this encounter Procedures Procedure Name Priority Date/Time Associated Diagnosis Comments EMG SCAN Routine 06/27/2016 documented in this encounter Results * Scan Doc: EMG (06/27/2016) Cassy Quiñonez MD MEDIA MGR SCAN EXT ORDR/RSLT documented in this encounter Visit Diagnoses Not on filedocumented in this encounter Care Teams Fish And Game Warden Relationship Specialty Start Date End Date Monica Paige PA [address] [place] [address] PCP - General Family Medicine 05/14/16 08/12/18 documented as of this encounter
--- OUTSIDE RECORDS SUMMARY | 2023-10-03 01:24 | XMS_ITS | Encounter Summary ---
Author Organization [facility] [place] [address] Care Team Providers Care Molecular Modeler Name Role Phone Monica Paige Primary Care Provider [phone] Reason for Visit * Reason Onset Date Comments Other 02/21/2018 Encounter Details Date Type Department Care Team (Late st Contact Info) Description 02/21/2018 Telephone [place] [phone] Jerrica Pichardo Other Social History Tobacco Use Types Packs/Day Years [...] encounter Miscellaneous Notes * Telephone Encounter - Jerrica Pichardo - 02/21/2018 12:39 PM EST YELLOW/PINK/RECALL LIST: Yellow PROVIDER: Marleny WATERS RECALL: AAA - screening AAA NOTES: LVM - 1X documented in this encounter Plan of Treatment Upcoming Encounters Date Type Department Care Team (Late st Contact Info) Description 10/03/2023 2:00 PM EDT Office Visit [place] [phone] Carlos Veloz MD [facility] [place] [address] documented as of this encounter Visit Diagnoses Not on filedocumented in this encounter Care Teams Molecular Modeler Relationship Specialty Start Date End Date Monica Paige PA [address] [place] [address] PCP - General Family Medicine 05/14/16 08/12/18 documented as of this encounter
--- OUTSIDE RECORDS SUMMARY | 2023-10-03 01:24 | XMS_ITS | Encounter Summary ---
Author Organization [facility] Address [facility] [place] [address] Care Team Providers Care Guide Delegate Name Role Phone Monica Paige Primary Care Provider [phone] Encounter Details Date Type Department Care Team (Latest Contact Info) Description 02/10/2018 - 02/10/2018 11:59 PM EST Hospital Encounter [place] [address] Mary Ko MD [facility] [place] [address] Discharge Disposition: Home Social History Tobacco Use [...] Sig Dispensed Refills Start Date End Date atorvastatin (LIPITOR) 10 mg Tablet Take 10 mg by mouth daily. 0 02/03/2018 gabapentin (NEURONTIN) 300 mg Capsule Take 900 mg by mouth daily. ascorbic acid (VITAMIN C) 500 mg tablet Take 500 mg by mouth daily. atenolol (TENORMIN) 100 mg tablet Take 100 mg by mouth daily. multivitamin with minerals (THERA-M) 9-0.4 mg tablet Take 1 tablet by mouth daily. ELIQUIS 5 mg Tablet Take 5 mg by mouth daily. 0 02/10/2018 08/15/2018 oxyCODONE-acetaminophen (PERCOCET) 5-325 mg Tablet Take 5 mg by mouth 3 times daily as needed. 0 02/10/2018 08/15/2018 LISINOPRIL ORALIndications:Neuropat hy Take by mouth daily. Dose unknown 08/18/2018 aspirin 81 mg EC tablet Take 81 mg by mouth daily. 08/15/2018 ibuprofen (ADVIL;MOTRIN) 200 mg tablet Take 800 mg by mouth every 6 hours as needed. 02/20/2018 documented as of this encounter Plan of Treatment Upcoming Encounters Date Type Department Care Team (Late st Contact Info) Description 10/03/2023 2:00 PM EDT Office [place] [address] Carlos Veloz MD [facility] [place] [address] documented as of this encounter Procedures Procedure Name Priority Date/Time Associated Diagnosis Comments FILM LIBRARY STORAGE ONLY ULTRASOUND STUDY Routine 02/10/2018 12:00 AM EST documented in this encounter Results * Film Library- Storage Only Ultrasound Study (02/10/2018 12:00 AM EST) Narrative [facility] - 02/11/2018 8:54 AM EST This exam is for storage only and is auto-finalizing. Mary Ko MD IMG FILM LIBRARY ORD ERABLES [place], [place] documented in this encounter Visit Diagnoses Not on filedocumented in this encounter Care Teams Guide Delegate Relationship Specialty Start Date End Date Monica Paige PA [address] [place] [address] PCP - General Family Medicine 05/14/16 08/12/18 documented as of this encounter
--- OUTSIDE RECORDS SUMMARY | 2023-10-03 01:24 | XMS_ITS | Encounter Summary ---
Author Organization [facility] [place] [address] Care Team Providers Care Maintenance Shop Welder Name Role Phone Mirian Malcolm MD Primary Care Provider [phone] Encounter Details Date Type Department Care Team (Late st Contact Info) Description 08/13/2018 2:35 AM EDT Ancillary Procedure [place] [phone] Social History Tobacco Use Types Packs/Day Years [...] 2:00 PM EDT Office [place] [address] Carlos Veloz MD [facility] DR ORTHOPAED[place] [address] documented as of this encounter Procedures Procedure Name Priority Date/Time Associated Diagnosis Comments FILM LIBRARY STORAGE ONLY CT SPINE STAT 08/13/2018 2:28 AM EDT documented in this encounter Results * Film Library- Storage Only CT Spine (08/13/2018 2:28 AM EDT) Narrative [facility] - 08/13/2018 2:28 AM EDT This exam is auto-finalizing. It's purpose is for storage only. Williams Bridges MD IMG FILM LIBRARY ORD ERABLES Performing Organization Address City/State/[facility] Co de Phone Number [place], [place] documented in this encounter Visit Diagnoses Not on filedocumented in this encounter Care Teams Maintenance Shop Welder Relationship Specialty Start Date End Date Mirian Malcolm MD [address] [place] [address] PCP - General Family Medicine 08/13/18 documented as of this encounter
--- OUTSIDE RECORDS SUMMARY | 2023-10-03 01:25 | XMS_ITS | Encounter Summary ---
Author Organization [facility] Address [facility] [place]ergio [place] [address] Care Team Providers Care Jack Spinner Name Role Phone Elias Lopez MD Primary Care Provider [phone] Encounter Details Date Type Department Care Team (Latest Contact Info) Description 06/11/2012 2:25 PM EDT - 06/11/2012 11:59 PM EDT Hospital [place] [phone] CLINIC, Anish Ellington MD [facility] [place] [address] Shoulder joint pain Discharge Disposition: Home Social History Tobacco Use Types Packs/Day Years Used Date Smoking Tobacco: Every Day Cigarettes 1.5 25 Smokeless Tobacco: Never Alcohol Use Standard Drinks/Week Comments Yes 25 (1 standard drink = 0.6 oz pu re alcohol) Sex and Gender Information Value Date Recorded Sex Assigned at Not on file Gender Identity Not on file Sexual Orientation Not on file documented as of this encounter Medications at Time of Discharge Medication Sig Dispensed Refills Start Date End Date ascorbic acid (VITAMIN C) 500 mg tablet Take 500 mg by mouth daily. atenolol (TENORMIN) 100 mg tablet Take 100 mg by mouth daily. multivitamin with minerals (THERA-M) 9-0.4 mg tablet Take 1 tablet by mouth daily. ibuprofen (ADVIL;MOTRIN) 200 mg tablet Take 800 mg by mouth every 6 hours as needed. 02/20/2018 Lgzo-Ezvqro-XlavhyKcwp-D3 -C-Mn (GLUCOSAMINE-CHONDROITIN- VIT D3) 500-400-667 mg-mg-unit Cap Take 1 tablet by mouth daily. 06/27/2016 documented as of this encounter Progress Notes * Srikanth Koch RN - 06/10/2012 1:58 PM EDT VIR MRI PRE-SEDATION ASSESSMENT NOTE NAME: Porsha Park AGE: 42 y.o. : 1970 Male [phone] (home) [phone] (work) Telephone Information: PCP DISPLAYER MERCHANDISE ELIAS LOPEZ MD None No Known Allergies Date/Time of call: June 10, 2012/1:59 PM/ PREVIOUS MRI SCAN? Yes-open HEIGHT: 6'1 WEIGHT: 265 lb HAVE YOU EVER BEEN DX. WITH SLEEP APNEA? no DO YOU USE CPAP/BIPAP? SCHEDULED SCAN: MRI shoulder SUBJECTIVE: I didn't know I was claustrophobic until I got into a mobile scanner. I was also having shoulder pain at the time ASSESSMENT: Appropriate for sedation PLAN: Ativan 1-2 mg po per protocol PRIOR SCAN DATE/S SEDATION TYPE SUCCESSFUL 06-11-12 MRI Shoulder Ativan 1mg. PO x2 Yes PT WILL ARRIVE 1 HR. BEFORE SCHEDULED SCAN AND HAVE A ROUTE SALESMAN AND DRIVER AVAILABLE. PT STATED TO MACHINE SPRING FORMER THAT THE SEDATION WAS EFFECTIVE FOR SCAN: Y N COMMENTS: This patient has been informed that they require a retail delivery driver to drive them home after this procedure. In the absence of a retail delivery driver, IR will not be able to perform this procedure and will need to reschedule. Pt verbalized understanding of these instructions during the pre-procedure education via phone. documented in this encounter Miscellaneous Notes * Miscellaneous - Provider, Scanning - 06/24/2012 9:37 AM EDT documented in this encounter Plan of Treatment Upcoming Encounters Date Type Department Care Team (Late st Contact Info) Description 10/03/2023 2:00 PM EDT Office [place] [address] Carlos Veloz MD [facility] [place] [address] documented as of this encounter Procedures Procedure Name Priority Date/Time Associated Diagnosis Comments MRI SHOULDER WO CONTRAST Routine 06/11/2012 4:23 PM EDT Shoulder joint pain documented in this encounter Results * MRI shoulder WO contrast (06/11/2012 4:23 PM EDT) Anatomical Region Laterality Modality Shoulder Magnetic Resonan ce 06/11/2012 4:23 PM EDT Narrative 06/11/2012 6:04 PM EDT Examination MR Shoulder WO/LEFT Clinical History shoulder pain Comparison X-ray 06/09/2012. Technique MR images of the shoulder were acquired without contrast. Findings No acute osseous injury. ??The acromioclavicular joint is normal in appearance. ?? The rotator cuff outlet is not narrowed. There is fatty infiltration within the deltoid musculature. ??The significance of this finding is uncertain. ??It suggests chronic muscular atrophy. ??There is no associated atrophy of the teres minor muscle and I do not see any abnormality in the quadrilateral space. The rotator cuff is abnormal. ??The presence of high signal intensity within the tendon is characteristic of tendinopathy and there are partial thickness tears of the articular surface of the rotator cuff on either side of the rotator cuff interval. ??This small low-grade tear is seen at the superior margin of the subscapularis. ??There is a larger high-grade tear of the undersurface of the cuff at the level of the supraspinatus. ??This extends from the rotator cuff posteriorly approximately 1-1.5 cm. ??This tear involves approximately half the thickness of the tendon. Increased signal intensity within the long head of the biceps tendon as it crosses into the bicipital groove is consistent with tendinopathy. ??I do not see a tear. At the glenohumeral joint there is an effusion. ??In addition ill-defined filling defect in the subcoracoid recess and is most consistent with synovial proliferation. ??I do not see a chondral defect. ??There is however a defect in the labrum extending from the biceps anchor posteriorly. ??In addition appear to be small para labral cyst consistent with chronic degenerative tearing of the superior labrum. ??This is best seen on coronal images number [id number] and axial images numbered 13-19. ??The small cysts are not large. They do not extend into the spinoglenoid notch. Impression ? 1. Rotator cuff tendinopathy and low-grade partial thickness articular surface tearing. ? 2. Bicipital tendinopathy. ? 3. Labral tear extending from the biceps anchor into the posterior labrum. ? 4. There does appear to be a degree of synovitis within the joint. Procedure Note Garcia Rosenberg MD - 06/11/2012 Examination MR Shoulder WO/LEFT Clinical History shoulder pain Comparison X-ray 06/09/2012. Technique MR images of the shoulder were acquired without contrast. Findings No acute osseous injury. The acromioclavicular joint is normal inappearance. The rotator cuff outlet is not narrowed. There is fatty infiltration within the deltoid musculature. Thesignificance of this finding is uncertain. It suggests chronic muscular atrophy.There is no associated atrophy of the teres minor muscle and I do not see any abnormality in the quadrilateral space. The rotator cuff is abnormal. The presence of high signal intensitywithin the tendon is characteristic of tendinopathy and there are partial thicknesstears of the articular surface of the rotator cuff on either side of the rotatorcuff interval. This small low-grade tear is seen at the superior margin of the subscapularis. There is a larger high-grade tear of the undersurface ofthe cuff at the level of the supraspinatus. This extends from the rotatorcuff posteriorly approximately 1-1.5 cm. This tear involves approximately halfthe thickness of the tendon. Increased signal intensity within the long head of the biceps tendon as it crosses into the bicipital groove is consistent with tendinopathy. I donot see a tear. At the glenohumeral joint there is an effusion. In addition ill-defined filling defect in the subcoracoid recess and is most consistent withsynovial proliferation. I do not see a chondral defect. There is however a defectin the labrum extending from the biceps anchor posteriorly. In additionappear to be small para labral cyst consistent with chronic degenerative tearing ofthe superior labrum. This is best seen on coronal images number 14-15 andaxial images numbered 13-19. The small cysts are not large. They do not extendinto the spinoglenoid notch. Impression 1. Rotator cuff tendinopathy and low-grade partial thicknessarticular surface tearing. 2. Bicipital tendinopathy. 3. Labral tear extending from the biceps anchor into the posteriorlabrum. 4. There does appear to be a degree of synovitis within the joint. Anish Burnett MD IMG MRI ORDERABLES documented in this encounter Visit Diagnoses Diagnosis Shoulder joint pain Pain in joint, shoulder region documented in this encounter Administered Medications Inactive Administered Medications - up to 3 most recent administrations Medication Order MAR Action Action Date Dose Rate Site LORazepam (ATIVAN) tablet 1-2 mg 1-2 mg, Oral, ONCE, 1 dose, On Sat06/11/12 at 0830, Angio/IR (Day of Procedure), Routine Given 06/11/2012 1:00 PM EDT 2 mg documented in this encounter Care Teams Jack Spinner Relationship Specialty Start Date End Date Elias Lopez MD [address] [facility] [address] PCP - General 01/17/10 06/29/12 documented as of this encounter
--- OUTSIDE RECORDS SUMMARY | 2023-10-03 01:25 | XMS_ITS | Encounter Summary ---
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) Discharge Disposition: Home Social History Tobacco Use Types Packs/Day Years Used Date Smoking Tobacco: Every Day Cigarettes 1.5 25 Alcohol Use Standard Drinks/Week Comments Yes 25 (1 standard drink = 0.6 oz pu re alcohol) Sex and Gender Information Value Date Recorded Sex Assigned at Not on file Gender Identity Not on file Sexual Orientation Not on file documented as of this encounter Last Filed Vital Signs Vital Sign Reading Time Taken Comments Blood Pressure 141/88 02/22/2011 2:42 PM EST Pulse 72 02/22/2011 2:42 PM EST Temperature - - Respiratory Rate - - Oxygen Saturation - - Inhaled Oxygen Concentration - - Weight 127 kg (280 lb) 02/22/2011 2:42 PM EST Height 182.9 cm (6') 02/22/2011 2:42 PM EST Body Mass Index 37.97 02/22/2011 2:42 PM EST documented in this encounter Progress Notes * Gladis Drummond PA - 02/23/2011 8:08 AM EST PATIENT NAME: Porsha Park AGE: 41 y.o. MR#: [id number] DATE OF VISIT: 02/22/2011 DATE OF INJURY/ONSET: February 16, 2011 STAFF: Dr. Heladio Rodriguez CHIEF COMPLAINT: Right ulnar nerve compression HISTORY OF PRESENT ILLNESS Mr. Xavier roberts 41 y.o. year old male comes into clinic today for followup appointment after continued physical therapy. Patient states that his right elbow is relatively pain-free at this time. He does not have any significant discomfort with extension or flexion of his elbow. He feels his range of motion has completely returned as well as his strength. PHYSICAL EXAM: Mr. Xavier roberts 41 y.o. is alert and oriented. He appears in no acute discomfort and is resting comfortably in a chair in the exam room. Elbow range of motion is 145?? of elbow flexion as well as a 0?? of elbow extension. The patient continues to have normal pronation and supination. Strength: Patient's strength is 5/5 in the above motions. Orthopedic testing: The patient continues to have a mild Tinel sign at his right elbow within the cubital tunnel. Neurological: Neurologic examination of the upper extremity is intact with normal motor function ofthe radial, median, ulnar, axillary and musculocutaneous nerves. Sensory function is intact in the radial, median, ulnar, axillary, and lateral antebrachial cutaneous nerve distributions. The hand was well perfused. Radial pulses are 2+ and equal bilateral. RADIOLOGICAL STUDIES: No new radiologic studies for this visit ASSESSMENT: Right ulnar nerve compression resolved PLAN: I spent approximately 15 minutes of this 20 minute visit discussing Mr. Park's response to physical therapy and physical exam findings. As for the patient that he is relatively pain-free at this time. He has full range of motion as well as full strength. The patient has reached maximal medical improvement in regards to his elbow. I do not believe that the patient's injury has caused permanent impairment. I discussed with the patient that with repetitive motion as well as lifting there is a possibility that his ulnar nerve symptoms may return. We will reassess his elbow at that time. Thepatient understands to contact me if he has any other questions or concerns. documented in this encounter Plan of Treatment Upcoming Encounters Date Type Department Care Team (Margaret taylor Contact Info) Description 10/03/2023 2:00 PM EDT Office [place] [address] Carlos Veloz MD [facility] DR ORTHOPAEDIC [place] [address] documented as of this encounter Visit Diagnoses Diagnosis Ulnar nerve entrapment at elbow- Primary Lesion of ulnar nerve documented in this encounter Care Teams Margin Analyst Relationship Specialty Start Date End Date Kallie Lopez MD [address] [facility] [address] [place] [address] PCP - General 01/17/10 06/29/12 documented as of this encounter
--- OUTSIDE RECORDS SUMMARY | 2023-10-03 01:25 | XMS_ITS | Encounter Summary ---
Author Organization [facility] Address [facility] [place] [address] Care Team Providers Care Overlock Sleeve Setter Name Role Phone Kallie Lopez MD Primary Care Provider [phone] Reason for Visit * Reason Comments Right Elbow Pain DOI 9.23.11 R elbow pain Encounter Details Date Type Department Care Team (Late st Contact Info) Description 12/28/2010 3:00 PM EDT [place] [address] Gladis Drummond PA [facility] [place] [address] Elbow pain, right; Ulnar nerve entrapment at elbow Discharge Disposition: Home Social History Tobacco Use Types Packs/Day Years Used Date Smoking Tobacco: Every Day Cigarettes 1.5 25 Alcohol Use Standard Drinks/Week Comments Yes 25 (1 standard drink = 0.6 oz pu re alcohol) Sex and Gender Information Value Date Recorded Sex Assigned at Not on file Gender Identity Not on file Sexual Orientation Not on file documented as of this encounter Patient Instructions * Patient Instructions* Denis Morel, CAN WORKER - 12/28/2010 3:21 PM EDT Welcome to [employer], your secure online access to your electronic medical record at [facility]. Using [employer] you will be able to send messages to your providers, view your test results, renew prescriptions, schedule appointments, and much more. Follow these instructions to enter your personal [employer] account for the first time: 1. Start your internet browser. Go to [email or web address] and click on the myD-H link. 2. Click SIGN UP NOW to go to the NEW MEMBER SIGN UP page. 3. Enter your [facility] Access Code exactly as it appears below. (You will not need this access code after you have completed the sign-up process.) ?? Your [facility]- Access Code: [email or web address] ?? Expires: 02/11/11 03:21 PM ?? IMPORTANT: This Access Code will on the above mentioned date. If you do not sign up before this date, you will need to request a new Access Code number. 4. Enter your Date of (mm/dd/yyyy) and zip code click SUBMIT to go to the next page. 5. Create a myD-H identification (ID). This will be your myD-H login ID and cannot be changed, so think of one that is secure and easy to remember. 6. Create a password which you can change at any time. Your password must contain six (6) letters and two (2) numbers. 7. Enter your Password Reset Question and Answer. This will be used if you forget your password. 8. Enter your e-mail address. This is used to let you know when new information is available in myD-H. 9. Click SIGN UP to complete the process. You can now view your electronic medical record. If you have any questions about myD-H or your Access Code, please call for [place], for [place] or for [place]. If you need technical support, please e-mail [email or web address]. Remember, my[employer]-H is NOT for urgent needs! Always dial 911 for medical emergencies. documented in this encounter Progress Notes * Gladis Drummond PA - 12/28/2010 4:33 PM EDT PATIENT NAME: Porsha Park AGE: 40 y.o. MR#: [id number] DATE OF VISIT: 12/28/2010 DATE OF INJURY/ONSET: November 17, 2010 STAFF: Dr. Anish Burnett CHIEF COMPLAINT: Right ulnar nerve compression HISTORY OF PRESENT ILLNESS Mr. Xavier roberts 40 y.o. year old male comes into clinic today for followup appointment after EMG studies for his right elbow pain. The patient states that he has not noticed anyappreciable improvement in regards to his right elbow pain. He continues to have significant discomfort with full extension along the medial aspect of his right elbow. Patient also has episodes wherehe feels a zinging down his forearm and into his little and ring finger. He notices mostly with pressure or extension along the medial aspect of his right elbow. Patient states that the elbow brace was not tolerable. The patient stated that he would return the patient brace the brace company if he could. The patient has not been taking anti-inflammatory medications and he has not started physicaltherapy. The patient feels that the restrictions written on his workers compensation form from [facility] were reasonable and tolerable. PHYSICAL EXAM: Mr. Xavier roberts 40 y.o. is alert and oriented. He appears in no acute discomfort and is resting comfortably in a chair in the exam room. Inspection: There is no obvious deformity, discolorations, or effusion of the injured extremity. Nomuscle atrophy is noted. Palpation: Patient continues to have sensitivity in the cubital tunnel of his right elbow. He has apositive Tinel sign at the cubital tunnel of his right elbow. The patient's elbow range of motion is approximately 2-3?? shy of full extension and 145?? of elbowflexion. He has normal pronation and supination. Neurological: Neurologic examination of the upper extremity is intact with normal motor function ofthe radial, median, ulnar, axillary and musculocutaneous nerves. Sensory function is intact in the radial, median, ulnar, axillary, and lateral antebrachial cutaneous nerve distributions. The hand was well perfused. Radial pulses are 2+ and equal bilateral. RADIOLOGICAL STUDIES: The patient's radiologic studies were reviewed at today's visit. ASSESSMENT: Continued right elbow pain and ulnar nerve irritation PLAN: I spent approximately 15 minutes of this 20 minute visit discussing Mr. Park's EMG studies and physical exam findings. I discussed with the patient that he had mild delay in his ulnar nerve just inferior to the olecranon on his EMG studies. The rest of the examination was normal. Discussed with the patient that he has not tried anti-inflammatory medication or physical therapy. It seems appropriate to prescribe the patient 500 mg of naproxen to be taken twice daily. The patient understandsto discontinue this medication if he experiences stomach upset. I would also like the patient to begin the course of physical therapy. Patient states that he was waiting for a specific therapist. I will plan to see the patient back in approximately 8 weeks. The patient understands to contact us if he notices any changes and decline in his function. The patient's workers compensation form was filled out again at today's visit with work restrictions. Please see the form. documented in this encounter Plan of Treatment Upcoming Encounters Date Type Department Care Team (Late st Contact Info) Description 10/03/2023 2:00 PM EDT [place] [address] Carlos Veloz MD [facility] [place] [address] documented as of this encounter Visit Diagnoses Diagnosis Elbow pain, right Pain in joint, upper arm Ulnar nerve entrapment at elbow Lesion of ulnar nerve documented in this encounter Care Teams Overlock Sleeve Setter Relationship Specialty Start Date End Date Kallie Lopez MD [address] [place] [address] PCP - General 01/17/10 06/29/12 documented as of this encounter
--- OUTSIDE RECORDS SUMMARY | 2023-10-03 01:25 | XMS_ITS | Encounter Summary ---
Author Organization [facility] Address [facility] [place] [address] Care Team Providers Care Administration Physician Name Role Phone Kallie Lopez MD Primary Care Provider [phone] Reason for Visit * Reason Comments Arm Pain Encounter Details Date Type Department Care Team (Late st Contact Info) Description 12/21/2010 10:30 AM EDT Procedure [place] [address] Megan Orlando MD [facility] PHYSICAL MEDICINE & [place] [address] Ulnar nerve entrapment at elbow (Primary Dx) Discharge Disposition: Home Social History Tobacco Use Types Packs/Day Years Used Date Smoking Tobacco: Never Assessed Sex and Gender Information Value Date Recorded Sex Assigned at Not on file Gender Identity Not on file Sexual Orientation Not on file documented as of this encounter Progress Notes * Megan Orlando - 12/21/2010 11:38 AM EDT ELECTROMYOGRAPHY AND NERVE CONDUCTION REPORT Megan Orlando MD Section of Physical Medicine and Rehabilitation Department of Orthopedics Provider: Megan Orlando MD This patient was seen for Electromyographic consultation at the request of RAFAEL Johnson. Pain at the right elbow with occasional catch- when releases has electrical pain down the medial forearm into the wrist. Symptoms do not go into the hand. Elbow has mildly limited range. Previous surgery at both elbows and shoulders. Right hand will have numbness into the ulnar hand at night. Summary of results are as follows: FINDINGS: Right and left median motor and sensory distal latencies are within normal limits with normal amplitudes and conduction velocities in the forearm ( done on right). . The left ulnar motor and sensory distal latencies are within normal limits with normal amplitudes and conduction velocities to above elbow. The right ulnar motor and sensory distal latencies are within normal limits. Conductions are borderline at the elbow but stepping conduction ( 2 cm intervals) across the olecranon show mild delay just distal to the olecranon. Amplitudes are within normal limits. Right and left radial sensory distal latencies are within normal limits with normal amplitudes. Needle studies of the ulnar innervated muscles of the right forearm and hand show no membrane instability. Recruitment is full and appropriate for effort. IMPRESSION: This exam demonstrates mild ulnar nerve delay just distal to the olecranon on the right. This is not evident on conduction velocities but only on short segment studies across the elbow. There is no specific evidence for median nerve entrapment at the wrists or elbows. There is no evidence for peripheral neuropathy. Normal values: UE motor distal latencies-4.2 msec: Amp-5 millV sensory distal latencies to peak, 3.6 msec; Amp-10uV conduction velocities- >50 M/sec LE motor distal latencies ( except tibial)-4 msec; Amp 3millV sensory distal latencies-4msec; Amp 5uV conduction velocities- >40 M/sec The results of the test were discussed with the patient. Copies of this report were sent to the primary care and referring physicians. Full scanned report of this study (including the study graphics) is located in the patient's eDH record in the following locations. Once in the patient???s chart, please click on CHART REVIEW. IN CHART REVIEW, there are two ways to access the report. 1. please select the SCAN DOC tab. IN the SCAN DOC section, please double-click on the EMG REPORT for the EMG appointment date. This will open the scanned EMG for that date. 2. Select the PROCEDURE tab. In the PROCEDURE section, please click on the EMG SCAN for the scheduled date. Then please double click on the blue colored link under RESULTS- in the summary below. Thiswill open the scanned EMG for that date Thank you, Megan Orlando MD documented in this encounter Procedure Notes * Megan Orlando - 12/21/2010 11:39 AM EDTAssociated Order(s): EMG WITH F-WAVE Procedure(s): EMG WITH F-WAVE Pre-Procedure Diagnose(s): Ulnar nerve entrapment at elbow Full scanned report of this study (including the study graphics) is located in the patient's eDH record in the following locations. Once in the patient???s chart, please click on CHART REVIEW. IN CHART REVIEW, there are two ways to access the report. 1. please select the SCAN DOC tab. IN the SCAN DOC section, please double-click on the EMG REPORT for the EMG appointment date. This will open the scanned EMG for that date. 2. Select the PROCEDURE tab. In the PROCEDURE section, please click on the EMG SCAN for the scheduled date. Then please double click on the blue colored link under RESULTS- in the summary below. Thiswill open the scanned EMG for that date Thank you, Megan Orlando MD Physical Medicine and Rehabilitation documented in this encounter Plan of Treatment Upcoming Encounters Date Type Department Care Team (Late st Contact Info) Description 10/03/2023 2:00 PM EDT Office Visit [place] [address] Carlos Veloz MD [facility] [place] [address] documented as of this encounter Procedures Procedure Name Priority Date/Time Associated Diagnosis Comments EMG WITH F-WAVE Routine 12/21/2010 11:39 AM EDT Ulnar nerve entrapment at elbow documented in this encounter Results * EMG WITH F-WAVE (12/21/2010 11:39 AM EDT) Narrative Megan Orlando - 12/21/2010 11:39 AM EDT Full scanned report of this study (including the study graphics) is located in the patient's eDH record in the following locations. Once in the patient? s chart, please click on CHART REVIEW. IN CHART REVIEW, there are two ways to access the report. 1. please select the SCAN DOC tab. IN the SCAN DOC section, please double-click on the EMG REPORT for the EMG appointment date. This will open the scanned EMG for that date. 2. Select the PROCEDURE tab. In the PROCEDURE section, please click on the EMG SCAN for the scheduled date. Then please double click on the blue colored link under RESULTS- in the summary below. This will open the scanned EMG for that date Thank you, Megan Orlando MD Physical Medicine and Rehabilitation Procedure Note Megan Orlando Emil - 12/21/2010 11:39 AM EDT Full scanned report of this study (including the study graphics) islocated in the patient's eDH record in the following locations. Once inthe patient? s chart, please click on CHART REVIEW. IN CHART REVIEW, thereare two ways to access the report. 1. please select the SCAN DOC tab. IN the SCAN DOC section, pleasedouble-click on the EMG REPORT for the EMG appointment date. This willopen the scanned EMG for that date. 2. Select the PROCEDURE tab. In the PROCEDURE section, please click on theEMG SCAN for the scheduled date. Then please double click on the bluecolored link under RESULTS- in the summary below. This will open thescanned EMG for that date Thank you, Megan Orlando MD Physical Medicine and Rehabilitation Megan Orlando MD NEUROLOGY ORDERABLES documented in this encounter Visit Diagnoses Diagnosis Ulnar nerve entrapment at elbow- Primary Lesion of ulnar nerve documented in this encounter Care Teams Administration Physician Relationship Specialty Start Date End Date Kallie Lopez MD [address] [place] [address] PCP - General 01/17/10 06/29/12 documented as of this encounter
--- OUTSIDE RECORDS SUMMARY | 2023-10-03 01:25 | XMS_ITS | Encounter Summary ---
Author Organization [facility] Address [facility] [place] [address] Care Team Providers Care Personnel Representative Name Role Phone Kallie Lopez MD Primary Care Provider [phone] Encounter Details Date Type Department Care Team (Latest Contact Info) Description 06/09/2012 3:05 PM EDT - 06/09/2012 11:59 PM EDT Hospital Encounter XRay at [address] [place] [address] Shoulder pain, left Social History Tobacco Use Types Packs/Day Years [...] mouth every 6 hours as needed. 02/20/2018 Pnyu-Izrnhc-PdioxhFapd-D3 -C-Mn (GLUCOSAMINE-CHONDROITIN- VIT D3) 500-400-667 mg-mg-unit Cap Take 1 tablet by mouth daily. 06/27/2016 documented as of this encounter Plan of Treatment Upcoming Encounters Date Type Department Care Team (Late st Contact Info) Description 10/03/2023 2:00 PM EDT [place] [address] Carlos Veloz MD [facility] [place] [address] documented as of this encounter Procedures Procedure Name Priority Date/Time Associated Diagnosis Comments XR SHOULDER Routine 06/09/2012 3:21 PM EDT Shoulder pain, left documented in this encounter Results * XR shoulder (06/09/2012 3:21 PM EDT) Anatomical Region Laterality Modality Shoulder N/A Radiographic Isabel ging 06/09/2012 3:21 PM EDT Narrative 06/09/2012 4:19 PM EDT Examination SHOULDER COMPLETE/LEFT Clinical History LT SHOULDER PAIN Comparison 10/17/2009. Technique 4 views. Findings No fracture or dislocation. ??The glenohumeral joint space is maintained. ?? Postsurgical changes of distal clavicle excision. The acromiohumeral interval is well maintained. ??No periarticular soft tissue calcifications observed. ?? Impression No acute osseous injury or change. Film and interpretation reviewed by the attending Procedure Note Philip Clay MD - 06/09/2012 Examination SHOULDER COMPLETE/LEFT Clinical History LT SHOULDER PAIN Comparison 10/17/2009. Technique 4 views. Findings No fracture or dislocation. The glenohumeral joint space is maintained. Postsurgical changes of distal clavicle excision. The acromiohumeralinterval is well maintained. No periarticular soft tissue calcifications observed. Impression No acute osseous injury or change. Film and interpretation reviewed by the attending Anish Burnett MD IMG DX ORDERABLES documented in this encounter Visit Diagnoses Diagnosis Shoulder pain, left Pain in joint, shoulder region documented in this encounter Care Teams Personnel Representative Relationship Specialty Start Date End Date Kallie Lopez MD [address] [place] [address] PCP - General 01/17/10 06/29/12 documented as of this encounter
--- OUTSIDE RECORDS SUMMARY | 2023-10-03 01:25 | XMS_ITS | Encounter Summary ---
Author Organization [facility] Address [facility] [place] [address] Care Team Providers Care Case Liner Name Role Phone Unknown Primary Care Provider Unavailabl e Encounter Details Date Type Department Care Team (Latest Contact Info) Description 06/30/2012 3:33 PM EDT - 06/30/2012 11:59 PM EDT Hospital Encounter XRay at [address] [place] [address] Left shoulder pain; Neuropathy; Cervical radiculopathy Social History Tobacco Use Types Packs/Day Years [...] mouth every 6 hours as needed. 02/20/2018 Plrr-Ikeyob-MkmbmvUezi-D3 -C-Mn (GLUCOSAMINE-CHONDROITIN- VIT D3) 500-400-667 mg-mg-unit Cap Take 1 tablet by mouth daily. 06/27/2016 documented as of this encounter Miscellaneous Notes * Miscellaneous - Provider, Scanning - 07/03/2012 9:06 AM EDT documented in this encounter Plan of Treatment Upcoming Encounters Date Type Department Care Team (Late st Contact Info) Description 10/03/2023 2:00 PM EDT Office Visit Orthopaedics at [facility] [place] [address] Carlos Veloz MD [facility] [place] [address] documented as of this encounter Procedures Procedure Name Priority Date/Time Associated Diagnosis Comments XR CERVICAL SPINE ROUTINE AND OBLIQUE (4 OR 5 VIEWS) Routine 06/30/2012 3:50 PM EDT documented in this encounter Results * XR Cervical Spine Routine & Oblique (4 or 5 views) (06/30/2012 3:50 PM EDT) Anatomical Region Laterality Modality T-spine N/A Radiographic Isabel ging 06/30/2012 3:50 PM EDT Narrative 06/30/2012 6:41 PM EDT Examination SPINE CERV ROUT & OBL (4 or 5 views) Clinical History Cervical radiculopathy Comparison None. Technique 5 views including bilateral oblique views. Findings The cervical spine appears normal on the lateral view, no evidence of degenerative disc disease or bony abnormality. ??Prevertebral soft tissues are normal. ??There are ovoid calcifications in the soft tissues posterior to the C4-C6 suggesting possible prior soft tissue trauma. ??The bony neural foramina are mildly narrowed on the right at C4-C5 and on the left at C3-C4. Impression Mild bilateral bony neural foraminal narrowing as above. ??Soft tissue calcifications and the posterior neck muscles overlying C4-C6 suggesting prior trauma. ??The vertebral column otherwise appears normal. Procedure Note Papo Lilly MD - 06/30/2012 Examination SPINE CERV ROUT & OBL (4 or 5 views) Clinical History Cervical radiculopathy Comparison None. Technique 5 views including bilateral oblique views. Findings The cervical spine appears normal on the lateral view, no evidence of degenerative disc disease or bony abnormality. Prevertebral soft tissuesare normal. There are ovoid calcifications in the soft tissues posterior tothe C4-C6 suggesting possible prior soft tissue trauma. The bony neuralforamina are mildly narrowed on the right at C4-C5 and on the left at C3-C4. Impression Mild bilateral bony neural foraminal narrowing as above. Soft tissue calcifications and the posterior neck muscles overlying C4-C6 suggestingprior trauma. The vertebral column otherwise appears normal. Gurdeep Choi MD IMG DX ORDERABLES documented in this encounter Visit Diagnoses Diagnosis Left shoulder pain Pain in joint, shoulder region Neuropathy Mononeuritis of unspecified site Cervical radiculopathy Brachial neuritis or radiculitis nos documented in this encounter Administered Medications Inactive Administered Medications - up to 3 most recent administrations Medication Order MAR Action Action Date Dose Rate Site ropivacaine (PF) 5 mg/mL (0.5 %) 4 mL with triamcinolone acetonide 5 mg injection Intra-articular, ONCE, 1 dose, On 06/30/12 at 1700 Given 06/30/2012 5:00 PM EDT documented in this encounter Care Teams Case Liner Relationship Specialty Start Date End Date Unknown None PCP - General 06/30/12 04/29/13 documented as of this encounter
--- OUTSIDE RECORDS SUMMARY | 2023-10-03 01:25 | XMS_ITS | Encounter Summary ---
Author Organization [facility] Address [facility] [place] [address] Care Team Providers Care Mastic Sprayer Name Role Phone Kallie Lopez MD Primary Care Provider [phone] Encounter Details Date Type Department Care Team (Late st Contact Info) Description 04/14/2010 5:00 PM EST Office Visit Dermatology [address] [facility] [address] [place], [place] [address] Kimo Fournier MD [address] [facility] [place] [address] Social History Tobacco Use Types Packs/Day Years [...] 2:00 PM EDT Office [place] [address] Carlos Veloz MD [facility] [place] [address] documented as of this encounter Visit Diagnoses Not on filedocumented in this encounter Care Teams Mastic Sprayer Relationship Specialty Start Date End Date Kallie Lopez MD [address] [place] [address] PCP - General 01/17/10 06/29/12 documented as of this encounter
--- OUTSIDE RECORDS SUMMARY | 2023-10-03 01:25 | XMS_ITS | Encounter Summary ---
Author Organization [facility] Address [facility] [place] [address] Care Team Providers Care Day Care Director Name Role Phone Kallie Lopez MD Primary Care Provider [phone] Reason for Referral * Physical Therapy (Routine) - Complete - Patient Will Schedule External Appt Specialty Diagnoses / Procedures Referred By Giles girard Referred To Contact Physical Therapy Diagnoses Elbow pain, right [place], Kellie Santiago PA [facility] [place] [address] Referral ID Status Reason Start Date Expiration Date Visits Requested Visits Authorized [id number] Complete - Patient Will Schedule External Appt Evaluate and Treat 1 06/19/2011 1 1 * Rehabilitation (Routine) - Closed Specialty Diagnoses / Procedures Referred By Giles girard Referred To Contact Physical Medicine and Rehab Diagnoses Elbow pain, right [place], Kellie B, PA [facility] [place] [address] [facility] [address] [place] [address] Referral ID Status Reason Start Date Expiration Date V isits Requested Visits Authorized [id number] Closed Consult, Test & Treat 12/21/2010 06/19/2011 1 1 Reason for Visit * Reason Comments Right Elbow Pain DOI 8.30.11 R elbow fx Encounter Details Date Type Department Care Team (Late st Contact Info) Description 12/21/2010 9:40 AM EDT Follow-Up Orthopaedics at [facility] [place] [address] Gladis Drummond PA [facility] [address] Elbow pain, right (Primary Dx); Ulnar nerve entrapment at elbow Discharge Disposition: Home Social History Tobacco Use Types Packs/Day Years Used Date Smoking Tobacco: Never Assessed Sex and Gender Information Value Date Recorded Sex Assigned at Not on file Gender Identity Not on file Sexual Orientation Not on file documented as of this encounter Progress Notes * Gladis Drummond PA - 12/21/2010 10:18 AM EDT PATIENT NAME: Porsha Park AGE: 40 y.o. MR#: [id number] DATE OF VISIT: 12/21/2010 DATE OF INJURY/ONSET: October 24, 2010; workers compensation STAFF: Dr. Anish Burnett CHIEF COMPLAINT: Right elbow pain HISTORY OF PRESENT ILLNESS Mr. Park a 40 y.o. year old male comes into clinic today for evaluation of right elbow pain. 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 Patient states that he had significant discomfort after the injury. He specifically noticed it the next 2-3 days after the injury. He has had increased swelling as well as pain. Patient feels like he has clicking and severe pain when he moves his elbow quickly into extension. Patient locates his discomfort over the medial posterior aspect of his right elbow. Patient states that the pain is not unbearable, however is sharp and snaps with elbow extension. Patient states that this discomfort is severe in the last approximately 5-10 minutes. He states that it occurs 5-6 times daily. Patient does not have any difficulty with sleep. The patient has some radiation of pain down his right forearm and into his last 2 digits. At times the patient's entire hand will be non-, however he locates his numbness mostly into the ring and little finger. It has not had a course of physical therapy or a cortisone injection. The patient has taken ibuprofen which has not found helpful. The patient has a history significant for lateral epicondyle surgery in 1998 where the common extensor tendon was debrided. PHYSICAL EXAM: Mr. Park a 40 y.o. is alert and oriented. He appears in no acute discomfort and is resting comfortably in a chair in the exam room. Inspection: On inspection the patient has a mild amount of swelling over the medial aspect of his right elbow. Palpation: Patient does not have any significant discomfort over the lateral epicondyle. The patient has the most discomfort over the ulnar nerve within the cubital tunnel. Patient's range of motion is approximately 140?? of elbow flexion and 5?? shy of full elbow extension. Patient has full supination and pronation. Patient's strength is 5/5 in all these motions. I am on able to appreciate any subluxation of the ulnar nerve through an arc of flexion and extension of the elbow. The patient does not have discomfort with wrist extension and has 5/5 strength in this motion. Neurological: Patient has slight numbness in his ring and little finger on physical examination in comparison to the bilateral side. The patient is intact in the radial and median nerve distributions. His pulses are 2+ and symmetric RADIOLOGICAL STUDIES: Radiologic studies of the patient's elbow both MRI examination and x-ray Patients MRI examination shows a near full thickness tear of the patient's common extensor tendon at the lateral epicondyle. There is no evidence of a medial collateral ligament injury. Radiologic data the patient's right elbow shows by radiology report: FINDINGS: Small joint effusion is present and a small calcific density projecting over the lateral aspect of the humeral condyle that does not appear to have any associated T2 signal on the recent MR. It could represent an old injury or calcific tendinopathy. No visible acute fracture. ASSESSMENT: Question of ulnar nerve compression; right elbow pain PLAN: I spent approximately 15 minutes of this 20 minute visit discussing Mr. Park's radiologic findings and physical exam findings. I discussed with the patient that his MRI examination shows a possible injury to the lateral aspect of his elbow, however on physical examination he does not have anysignificant discomfort in this area. The patient also does not have discomfort with resistive wristextension. I discussed with the patient that I felt the finding on his MRI examination is probably from his old surgery in 1998. In regards to his medial posterior elbow pain I am concerned that he has some ulnar nerve compression with a possible MCL strain. The patient was given a prescription for an elbow brace, referral for EMG studies, and a referral for physical therapy. I would like to see the patient back after his EMG studies. The patient understands to contact me if he has any other questions or concerns. The patient's workers compensation forms were filled out at today's visit. documented in this encounter Plan of Treatment Upcoming Encounters Date Type Department Care Team (Late st Contact Info) Description 10/03/2023 2:00 PM EDT Office [place] [address] Carlos Veloz MD [facility] [place] [address] Scheduled Referrals Name Type Priority Associated Diagnoses Orde r Schedule REFERRAL TO PHYSICIAL MEDICINE REHAB Outpatient Referral Routine Elbow pain, right Ordered: 12/21/2010 REFERRAL TO PHYSICAL THERAPY Outpatient Referral Routine Elbow pain, right Ordered: 12/21/2010 documented as of this encounter Visit Diagnoses Diagnosis Elbow pain, right- Primary Pain in joint, upper arm Ulnar nerve entrapment at elbow Lesion of ulnar nerve documented in this encounter Care Teams Day Care Director Relationship Specialty Start Date End Date Kallie Lopez MD [address] [place] [address] PCP - General 01/17/10 06/29/12 documented as of this encounter
--- OUTSIDE RECORDS SUMMARY | 2023-10-03 01:25 | XMS_ITS | Encounter Summary ---
Author Organization [facility] Address [facility] [place] [address] Care Team Providers Care Cryptologic Technician Operator/Analyst Name Role Phone Kallie Lopez MD Primary Care Provider Encounter Details Date Type Department Care Team (Late st Contact Info) Description 12/21/2010 External [place] [address] Megan Orlando MD [facility] DR PHYSICAL MEDICINE & [place] [address] Social History Tobacco Use Types Packs/Day Years [...] 2:00 PM EDT Office [place] [address] Carlos Veloz MD [facility] [place] [address] documented as of this encounter Procedures Procedure Name Priority Date/Time Associated Diagnosis Comments EMG SCAN Routine 12/21/2010 documented in this encounter Results * Scan Doc: EMG (12/21/2010) Megan Orlando MD MEDIA MGR SCAN EXT O RDR/RSLT documented in this encounter Visit Diagnoses Not on filedocumented in this encounter Care Teams Cryptologic Technician Operator/Analyst Relationship Specialty Start Date End Date Kallie Lopez MD [address] [place] [address] PCP - General 01/17/10 06/29/12 documented as of this encounter
--- OUTSIDE RECORDS SUMMARY | 2023-10-03 01:25 | XMS_ITS | Encounter Summary ---
Author Organization [facility] Address [facility] [place] [address] Care Team Providers Care Powder Operator Name Role Phone Kallie Lopez MD Primary Care Provider [phone] Encounter Details Date Type Department Care Team (Late st Contact Info) Description 12/12/2010 Orders [place] [address] Gladis Drummond PA [facility] [place] [address] Elbow pain (Primary Dx) Social History Tobacco Use Types Packs/Day Years [...] 2:00 PM EDT [place] [address] Carlos Veloz MD [facility] [place] [address] documented as of this encounter Results * XR elbow 3 view complete (12/21/2010 8:44 AM EDT) Anatomical Region Laterality Modality Elbow N/A Radiographic Isabel ging 12/21/2010 8:44 AM EDT Narrative 12/22/2010 1:47 PM EDT THREE VIEWS OF THE ELBOW: INDICATION: ??Right elbow near complete tear of common extensors. FINDINGS: ??Small joint effusion is present and a small calcific density projecting over the lateral aspect of the humeral condyle that does not appear to have any associated T2 signal on the recent MR. ??It could represent an old injury or calcific tendinopathy. ??No visible acute fracture. Procedure Note Irma Arndt MD - 12/22/2010 THREE VIEWS OF THE ELBOW: INDICATION: Right elbow near complete tear of common extensors. FINDINGS: Small joint effusion is present and a small calcific density projecting over the lateral aspect of the humeral condyle that does notappear to have any associated T2 signal on the recent MR. It could represent anold injury or calcific tendinopathy. No visible acute fracture. Heladio Rodriguez MD IMG DX ORDERABLES documented in this encounter Visit Diagnoses Diagnosis Elbow pain- Primary Pain in joint, upper arm Elbow pain Pain in joint, upper arm documented in this encounter Care Teams Powder Operator Relationship Specialty Start Date End Date Kallie Lopez MD [address] [place] [address] PCP - General 01/17/10 06/29/12 documented as of this encounter
--- OUTSIDE RECORDS SUMMARY | 2023-10-03 01:25 | XMS_ITS | Encounter Summary ---
Author Organization [facility] Address [facility] [place] [address] Care Team Providers Care Deputy District Customs Director Name Role Phone Kallie Lopez MD Primary Care Provider Reason for Visit * Reason Onset Date Comments Results 06/16/2012 Encounter Details Date Type Department Care Team (Late st Contact Info) Description 06/16/2012 Telephone [place] [address] Gladis Drummond PA [facility] [place] [address] Results Social History Tobacco Use Types Packs/Day Years [...] encounter Miscellaneous Notes * Telephone Encounter - Gladis Drummond PA - 06/16/2012 10:38 AM EDT I spoke with the patient regarding his MRI examination. I discussed the following findings with thepatient. Findings No acute osseous injury. The acromioclavicular joint is normal in appearance. The rotator cuff outlet is not narrowed. There is fatty infiltration within the deltoid musculature. The significance of this finding is uncertain. It suggests chronic muscular atrophy. There is no associated atrophy of the teres minor muscle and I do not see any abnormality in the quadrilateral space. The rotator cuff is abnormal. The presence of high signal intensity within the tendon is characteristic of tendinopathy and there are partial thickness tears of the articular surface of the rotator cuff on either side of the rotator cuff interval. This small low-grade tear is seen at the superior margin of the subscapularis. There is a larger high-grade tear of the undersurface of the cuff at the level of the supraspinatus. This extends from the rotator cuff posteriorly approximately 1-1.5 cm. This tear involves approximately half the thickness of the tendon. Increased signal intensity within the long head of the biceps tendon as it crosses into the bicipital groove is consistent with tendinopathy. I do not see a tear. At the glenohumeral joint there is an effusion. In addition ill-defined filling defect in the subcoracoid recess and is most consistent with synovial proliferation. I do not see a chondral defect. There is however a defect in the labrum extending from the biceps anchor posteriorly. 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 This is best seen on coronal images number [id number] and axial images numbered 13-19. The small cysts are not large. They do not extend into the spinoglenoid notch. Impression 1. Rotator cuff tendinopathy and low-grade partial thickness articular surface tearing. 2. Bicipital tendinopathy. 3. Labral tear extending from the biceps anchor into the posterior labrum. 4. There does appear to be a degree of synovitis within the joint. I discussed with the patient that he may benefit from a glenohumeral cortisone injection. If the patient has transient relief from the glenohumeral cortisone injection he would then be a good candidate for a biceps tenotomy. I had the opportunity of discussing the patient's MRI examination with . Given that the patient has had previous surgery on his left shoulder including decompression of para labral cyst it is more likely than not that his ongoing shoulder discomfort is related tohis previous pathology. We will plan to see the patient back in approximately 4 weeks after his glenohumeral cortisone injection. The patient understands to contact us if he has any other questions or concerns. * Telephone Encounter - Gladis Drummond PA - 06/16/2012 10:29 AM EDT I spoke with the patient regarding his MRI examination. documented in this encounter Plan of Treatment Upcoming Encounters Date Type Department Care Team (Late st Contact Info) Description 10/03/2023 2:00 PM EDT Office Visit [place] [address] Carlos Veloz MD [facility] [place] [address] documented as of this encounter Visit Diagnoses Not on filedocumented in this encounter Care Teams Deputy District Customs Director Relationship Specialty Start Date End Date Kallie Lopez MD [address] [place] [address] PCP - General 01/17/10 06/29/12 documented as of this encounter
--- OUTSIDE RECORDS SUMMARY | 2023-10-03 01:25 | XMS_ITS | Encounter Summary ---
Author Organization [facility] [place] [address] Care Team Providers Care Custodian Blood Bank Name Role Phone Kallie Lopez MD Primary Care Provider [phone] Encounter Details Date Type Department Care Team (Late st Contact Info) Description 04/05/2010 [place] [address] Kimo Parks MD [address] [place] [address], [facility] [place] [address] Social History Tobacco Use Types Packs/Day Years [...] 2:00 PM EDT [place] [address] Carlso Veloz MD [facility] [place] [address] documented as of this encounter Procedures Procedure Name Priority Date/Time Associated Diagnosis Comments SURGICAL PATHOLOGY REPORT Routine 04/05/2010 6:38 PM EST documented in this encounter Results * PATHOLOGY SURGICAL PATHOLOGY FINAL REPORT (04/05/2010 6:38 PM EST) Surgical Pathology Report ? [facility] ? Provider: ?? KIMO PARKS ?? Pt. Name: ?? ARELYPORSHA ? Acc #: ?[id number] ? Pt. ? Col Date: ?? 04/05/2010 ?/Sex: ?1970,(40 years),Male ? Rec Date: ?? 04/06/2010 ? LOC: ?[facility] ? SURGICAL PATHOLOGY ? ---Pathologic Diagnosis--- ? Skin, (L) forearm, shave biopsy: ?Spongiotic dermatitis with focal parakeratosis and focal erosion, ? superficial perivascular lymphocytic infiltrate mixed with abundant ? eosinophils (see Comment). ? CR-0 ? 04/07/10 ? SY ? 04/07/10 Verified by: ? Pradeep CORTES, PhD, Beto ? Dermatopathologist ? (Electronic Signature) ? The attending pathologist whose signature appears on this report has ? reviewed all diagnostic slides and has edited the gross and/or ? microscopic portion of the report in rendering the final pathologic ? diagnosis. ? ---Comment--- ? The biopsy shows eosinophilic spongiosis. The findings are not diagnostic ? of cutaneous T-cell lymphoma. The histologic differential diagnosis ? includes spongiotic/eczematous dermatitis and hypersensitivity reaction, as ? to drug, contactant, or arthropod bite or infestation. Drs. Moore, Sukhdeep ? and Asaf have reviewed this case and concur. ? ---Microscopic Description--- ? Slides reviewed, microscopic description not recorded. ? ---Gross Description--- ? Labeled/Fixative: ? L forearm, formalin. ? Qty/Size/Weight: ?Single shave, 1.5 x 1.1 cm. ? Tissue Description: ?? Parra skin. ? Sections/Processing: ??The specimen is inked and serially sectioned. ??(T1) ? aje/CJL ? ---Clinical Information--- ? Specimen Submitted: ? A - (L) forearm, shave ? Clinical History: ? Symmetric eczematous patches since March 2009 on arms, inner thighs, ? flanks, back ? [facility] ? Provider: ?? KIMO PARKS ?? Pt. Name: ?? PORSHA PARK ? Acc #: ?[id number] ? Pt. ? Col Date: ?? 04/05/2010 ?/Sex: ?1970,(40 years),Male ? Rec Date: ?? 04/06/2010 ? LOC: ?[facility] ? SURGICAL PATHOLOGY ? Clinical Diagnosis: ? R/O CTCL vs spongiotic dermatitis ? Report to: ? Kimo Parks MD, III ? [facility] ? Dermatology ? . [place], [place] ??[address] FRANSISCO MURPHYIUM 04/05/2010 6:38 PM EST Kimo Parks MD PATHOLOGY/CYTOLOGY O RDERABLES FRANSISCO MURPHYIUM documented in this encounter Visit Diagnoses Not on filedocumented in this encounter Care Teams Custodian Blood Bank Relationship Specialty Start Date End Date Kallie Lopez MD [address] [place] [address] PCP - General 01/17/10 06/29/12 documented as of this encounter
--- OUTSIDE RECORDS SUMMARY | 2023-10-03 01:25 | XMS_ITS | Encounter Summary ---
Author Organization [facility] [place] [address] Care Team Providers Care Behavioral Health Consultant Name Role Phone Kallie Lopez MD Primary Care Provider [phone] Encounter Details Date Type Department Care Team (Late st Contact Info) Description 12/21/2010 8:36 AM EDT - 12/21/2010 11:59 PM EDT Hospital Encounter XRay at [address] [place] [address] Elbow pain Social History Tobacco Use Types Packs/Day Years Used Date Smoking Tobacco: Never Assessed Sex and Gender Information Value Date Recorded Sex Assigned at Not on file Gender Identity Not on file Sexual Orientation Not on file documented as of this encounter Medications at Time of Discharge Medication Sig Dispensed Refills Start Date End Date CIS Free Text Med - stress b w/ c+zinc 06/09/2012 atenolol (TENORMIN) 100 mg tablet 010 06/09/2012 hydrochlorothiazide (HYDRODIURIL) 25 mg tablet 11/15/2009 06/09/2012 doxazosin (CARDURA) 4 mg tablet 0 06/09/2012 multivitamin (THERAGRAN) tablet 0 06/09/2012 GLUCOSAMINE HCL/CHONDRO MARTINEZ A (GLUCOSAMINE-CHONDROITIN ORAL) 11/15/2009 06/09/2012 ascorbic acid (VITAMIN C) 500 mg tablet 0 11/15/2009 06/09/2012 acetaminophen (TYLENOL) 325 mg tablet 06/09/2012 documented as of this encounter Plan of Treatment Upcoming Encounters Date Type Department Care Team (Late st Contact Info) Description 10/03/2023 2:00 PM EDT Office [place] [address] Carlos Veloz MD [facility] [place] [address] documented as of this encounter Procedures Procedure Name Priority Date/Time Associated Diagnosis Comments XR ELBOW 3 VIEW COMPLETE Routine 12/21/2010 8:44 AM EDT Elbow pain documented in this encounter Results * XR elbow 3 [...] in this encounter Visit Diagnoses Diagnosis Elbow pain Pain in joint, upper arm documented in this encounter Care Teams Behavioral Health Consultant Relationship Specialty Start Date End Date Kallie Lopez MD [address] [place] [address] PCP - General 01/17/10 06/29/12 documented as of this encounter
--- OUTSIDE RECORDS SUMMARY | 2023-10-03 01:25 | XMS_ITS | Encounter Summary ---
Author Organization [facility] [address] Care Team Providers Care Dryer Operator Name Role Phone Cristian Mei MD Primary Care Provider [phone] Reason for Visit * Reason Comments Varicose Veins Encounter Details Date Type Department Care Team (Late st Contact Info) Description 05/26/2013 7:20 AM EDT Office Visit [place] [address] Cash Child MD [facility] [place] [address] Numbness of foot (Primary Dx) Discharge Disposition: Home Social History [...] Sign Reading Time Taken Comments Blood Pressure 160/80 05/26/2013 8:02 AM EDT Pulse 84 05/26/2013 8:02 AM EDT Temperature - - Respiratory Rate - - Oxygen Saturation - - Inhaled Oxygen Concentration - - Weight 115.2 kg (254 lb) 05/26/2013 8:02 AM EDT Height 182.9 cm (6') 05/26/2013 8:02 AM EDT Body Mass Index 34.45 05/26/2013 8:02 AM EDT documented in this encounter Progress Notes * Cash Child MD - 05/26/2013 10:02 AM EDT OUTPATIENT VASCULAR SURGERY CONSULTATION Reason for Visit: B LE foot pain History of Present Illness: Pt with h/o of B LE foot pain and numbness progressively worse over last several months. Not improved with elevation. No swelling. He has h/o of B LE varicose veins. They are not tender, he has neverused compression stockings, states socks and shoes makes numbness and foot pain worse. No h/o of DVT or phlebitis. Smokes 1 ppd Atherosclerotic Risk Factors: (n) DM y) HTN (n) Hyperlipidemia (y) Tobacco Other Past Medical History/Risk Factors: (n) Previous MA (n) Angina (n) CHF (n) Arrythmia (n) COPD Patient Active Problem List Diagnosis Code ??? Elbow pain, right 719.42 ??? 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 Left shoulder pain 719.41 ??? Neuropathy 355.9 ??? Cervical radiculopathy 723.4 Current outpatient prescriptions:lisinopril (PRINIVIL;ZESTRIL) 20 mg tablet, Take 20 mg by mouth daily., Disp: , Rfl: ; aspirin 81 mg EC tablet, Take 81 mg by mouth daily., Disp: , Rfl: ; ibuprofen (ADVIL;MOTRIN) 200 mg tablet, Take 800 mg by mouth every 6 hours as needed., Disp: , Rfl: ; ascorbic acid (VITAMIN C) 500 mg tablet, Take 500 mg by mouth daily., Disp: , Rfl: atenolol (TENORMIN) 100 mg tablet, Take 100 mg by mouth daily., Disp: , Rfl: ; Dilx-Xhtqbl-HvbcdsAkua-D3-C-Mn (VCUQHYHUSGF-FFFZLZSOVDQ-DBI D3) 500-400-667 mg-mg-unit Cap, Take 1 tablet by mouth daily., Disp: , Rfl: ; multivitamin with minerals (THERA-M) 9-0.4 mg tablet, Take 1 tablet by mouth daily., Disp: , Rfl: No Known Allergies Review of Systems: Constitutional (weight change, fever) - Denies Neuro (dizziness, seizures, numbness, tingling) - Denies Eyes (vision) - Denies Ears, nose, throat (hearing) - Denies Cardiovascular (CP) - Denies Respiratory (SOB) - Denies GI (abd pain, nausea, emesis, blood in stool) - Denies (hematuria, dysuria, frequency) - Denies Muscoloskeletal (extremity pain, weakness) - as above Skin (ulcers, rashes) - Denies Functional Status/Social Hx: 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 at home, 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, 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, 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 Family Hx: Negative for Thrombosis, Bleeding Disorders Physical Exam: BP 160/80 Pulse 84 Ht 182.9 cm (6') Wt 115.214 kg (254 lb) BMI 34.44 kg/m2 General - NAD, appears stated age Neuro - Alert and Oriented, Motor Sensory grossly intact, Skin - No prominent markings or lesions Ear, Nose, Throat - No masses, No lesions Cardiac - RRR Lungs - Clear Extremities - Warm, pink, no edema, brisk capillary refill, large varicose veins medial lower extremity thigh and lower leg bilaterally, no venous stasis changes Vascular Exam: R L Carotid Radial Femoral Popliteal DP 2/2 2/2 PT 2/2 2/2 Labs: None Studies: Assessment and Plan: Pt with B LE varicose veins, i dont think the varicose veins are causing the patients foot numbnesswhich may be due to peripheral neuropathy. Pt has asymptomatic varicose veins, I gave him a script for compression stocking and instructed him in their use. There is no indication at present for surgical intervention. Would consider other etiology for foot pain/ numbness. I will see him on a prn basis. documented in this encounter Plan of Treatment Upcoming Encounters Date Type Department Care Team (Late st Contact Info) Description 10/03/2023 2:00 PM EDT Office [place] [address] Carlos Veloz MD [facility] DR [place] [address] documented as of this encounter Visit Diagnoses Diagnosis Numbness of foot- Primary Disturbance of skin sensation documented in this encounter Care Teams Dryer Operator Relationship Specialty Start Date End Date Cristian Mei MD [facility] [address] [place] [address] [place] [address] PCP - General 04/30/13 02/25/15 documented as of this encounter
--- OUTSIDE RECORDS SUMMARY | 2023-10-03 01:25 | XMS_ITS | Encounter Summary ---
Author Organization [facility] [place] [address] Care Team Providers Care Internship Coordinator Name Role Phone Kallie Lopez MD Primary Care Provider [phone] Encounter Details Date Type Department Care Team (Late st Contact Info) Description 06/03/2012 Orders [place] [address] Gladis Drummond PA [facility] [place] [address] Shoulder pain, left (Primary Dx) Social History Tobacco Use Types [...] 2:00 PM EDT Office [place] [address] Carlos Veloz MD [facility] [place] [address] documented as of this encounter Results * XR shoulder (06/09/2012 [...] this encounter Visit Diagnoses Diagnosis Shoulder pain, left- Primary Pain in joint, shoulder region Shoulder pain, left Pain in joint, shoulder region documented in this encounter Care Teams Internship Coordinator Relationship Specialty Start Date End Date Kallie Lopez MD [address] [place] [address] PCP - General 01/17/10 06/29/12 documented as of this encounter
--- OUTSIDE RECORDS SUMMARY | 2023-10-03 01:25 | XMS_ITS | Encounter Summary ---
Author Organization [facility] [place] [address] Care Team Providers Care Deliverer Pharmacy Name Role Phone Kallie Lopez MD Primary Care Provider [phone] Encounter Details Date Type Department Care Team (Late st Contact Info) Description 06/13/2012 Orders [place] [address] Gladis Drummond PA [facility] [place] [address] Biceps tendonitis (Primary Dx) Social History Tobacco Use Types [...] 2:00 PM EDT Office [place] [address] Carlos Veloz MD [facility] [place] [address] documented as of this encounter Results * XR Fluoro injection FL drain large JT (06/30/2012 4:45 PM EDT) Anatomical Region Laterality Modality N/A Radiographic Isabel ging 06/30/2012 4:45 PM EDT Impressions 07/01/2012 10:44 AM EDT IMPRESSION: Uneventful left shoulder injection under fluoroscopy. ?? Resident/Fellow: Edgar ?? Attending: Dr. Rosen[place] ? I, Garcia Rosenberg MD was present with the resident for the gilliam component(s) of the procedure and otherwise remained immediately available for the duration of the procedure. ?? Film and interpretation reviewed by the attending Narrative 07/01/2012 10:44 AM EDT HISTORY: left shoulder Pain ?? left shoulder INJECTION UNDER FLUOROSCOPY ?? TECHNIQUE: After an extensive conversation with the patient regarding risks and benefits, oral and written consent were obtained. The patient was placed supine on the fluoroscopic table. The left shoulder was prepped and draped in the usual aseptic manner. 1% Lidocaine was used to achieve local anesthesia. Under fluoroscopic guidance, 20 gauge spinal needle was advanced into the joint space. Small amount of air was injected to the document needle placement. A mixture of Ropivacaine, Lidocaine and triamcinolone acetonide was injected. All needles removed at end of procedure. ?? FINDINGS: ?? 1. Small amount of injected air in the left shoulder joint space. ?? 2. PAIN SCORE: ?? Before: 9 /10 ?? After: 0 /10 ?? 3. Medications: ?? Lidocaine 1% - <5 ml, for subcutaneous anesthesia ?? Ropivacaine HCL 0.5% - 3 ml, ?? Triamciolone Acetonide - 30 mg, ?? Fluoroscopy time: 4 sec ?? COMPLICATIONS: None immediate. ?? POST-PROCEDURE CARE: Information regarding monitor of infection, post- procedural pain and management of steroid flare were reviewed with patient. ?? Procedure Note Garcia [place] MD - 07/01/2012 HISTORY: left shoulder Pain left shoulder INJECTION UNDER FLUOROSCOPY TECHNIQUE: After an extensive conversation with the patient regardingrisks and benefits, oral and written consent were obtained. The patient was placedsupine on the fluoroscopic table. The left shoulder was prepped and draped in the usual aseptic manner. 1% Lidocaine was used to achieve local anesthesia.Under fluoroscopic guidance, 20 gauge spinal needle was advanced into the joint space. Small amount of air was injected to the document needle placement.A mixture of Ropivacaine, Lidocaine and triamcinolone acetonide wasinjected. All needles removed at end of procedure. FINDINGS: 1. Small amount of injected air in the left shoulder joint space. 2. PAIN SCORE: Before: 9 /10 After: 0 /10 3. Medications: Lidocaine 1% - <5 ml, for subcutaneous anesthesia Ropivacaine HCL 0.5% - 3 ml, Triamciolone Acetonide - 30 mg, Fluoroscopy time: 4 sec COMPLICATIONS: None immediate. POST-PROCEDURE CARE: Information regarding monitor of infection, post- procedural pain and management of steroid flare were reviewed withpatient. IMPRESSION IMPRESSION: Uneventful left shoulder injection under fluoroscopy. Resident/Fellow: Edgar Attending: Dr. [place] I, Garcia [place] MD was present with the resident for the keycomponent(s) of the procedure and otherwise remained immediately available for theduration of the procedure. Film and interpretation reviewed by the attending Anish Burnett MD IMG FLUORO ORDERABLE S documented in this encounter Visit Diagnoses Diagnosis Biceps tendonitis- Primary Bicipital tenosynovitis Biceps tendonitis Bicipital tenosynovitis documented in this encounter Care Teams Deliverer Pharmacy Relationship Specialty Start Date End Date Kallie Lopez MD [address] [place] [address] PCP - General 01/17/10 06/29/12 documented as of this encounter
--- OUTSIDE RECORDS SUMMARY | 2023-10-03 01:25 | XMS_ITS | Encounter Summary ---
Author Organization [facility] [place] [address] Care Team Providers Care Reporting Developer Name Role Phone Kallie Lopez MD Primary Care Provider [phone] Encounter Details Date Type Department Care Team (Late st Contact Info) Description 12/08/2010 Orders [place] [address] Gladis Drummond PA [facility] [place] [address] Social History Tobacco Use Types Packs/Day Years [...] 2:00 PM EDT Office [place] [address] Carlos Veloz MD [facility] [place] [address] documented as of this encounter Procedures Procedure Name Priority Date/Time Associated Diagnosis Comments FILM LIBRARY STORAGE ONLY MR ELBOW Routine 12/08/2010 2:15 PM EDT documented in this encounter Results * FILM LIBRARY- STORAGE ONLY MR ELBOW (12/08/2010 2:15 PM EDT) Anatomical Region Laterality Modality Other 12/08/2010 2:15 PM EDT Narrative 03/30/2013 10:54 PM EST This is a non-reportable exam. Procedure Note Chris Mclean - 03/30/2013 This is a non-reportable exam. Gladis HALL IMFred FILM LIBRARY ORDERABLES documented in this encounter Visit Diagnoses Not on filedocumented in this encounter Care Teams Reporting Developer Relationship Specialty Start Date End Date Kallie Lopez MD [address] [place] [address] PCP - General 01/17/10 06/29/12 documented as of this encounter
--- OUTSIDE RECORDS SUMMARY | 2023-10-03 01:25 | XMS_ITS | Encounter Summary ---
Author Organization [facility] Address [facility] [place] [address] Care Team Providers Care Cross Country And Track And Field Coach Name Role Phone Unknown Primary Care Provider Unavailabl e Encounter Details Date Type Department Care Team (Latest Contact Info) Description 06/30/2012 3:30 PM EDT - 06/30/2012 3:32 PM EDT Hospital Encounter XRay at [address] [place] [address] Biceps tendonitis Social History Tobacco Use Types Packs/Day Years [...] mouth every 6 hours as needed. 02/20/2018 Mrla-Zqywqa-JtthejXqqu-D3 -C-Mn (GLUCOSAMINE-CHONDROITIN- VIT D3) 500-400-667 mg-mg-unit Cap Take 1 tablet by mouth daily. 06/27/2016 documented as of this encounter Procedure Notes * Garcia Rosen[place] MD - 06/30/2012 4:40 PM EDTProcedure(s): ARTHROCENTESIS,DRAIN/INJECT JOINT/BURSA Pre-Procedure Diagnose(s): Left shoulder pain Post-Procedure Diagnose(s): Left shoulder pain Porsha Park [id number] HISTORY: left shoulder Pain left shoulder INJECTION [...] of steroid flare were reviewed with patient. IMPRESSION: Uneventful left shoulder injection under fluoroscopy. Resident/Fellow: Edgar Attending: Dr. Rosenberg IGarcia MD was present with the resident for the gilliam component(s) of the procedure and otherwise remained immediately available for the duration of the procedure. documented in this encounter Plan of Treatment Upcoming Encounters Date Type Department Care Team (Late st Contact Info) Description 10/03/2023 2:00 PM EDT Office [place] [address] Carlos Veloz MD [facility] [place]OPAED[place] [address] documented as of this encounter Procedures Procedure Name Priority Date/Time Associated Diagnosis Comments XR FLUORO INJECTION FL DRAIN LARGE JT Routine 06/30/2012 4:45 PM EDT Biceps tendonitis documented in this encounter Results * XR Fluoro injection [...] under fluoroscopy. Resident/Fellow: Edgar Attending: Dr. Rosenberg Garcia Arzola MD was present with the resident for the keycomponent(s) of the procedure and otherwise remained immediately available for theduration of the procedure. Film and interpretation reviewed by the attending Anish Burnett MD IMG FLUORO ORDERABLE S documented in this encounter Visit Diagnoses Diagnosis Biceps tendonitis Bicipital tenosynovitis documented in this encounter Care Teams Cross Country And Track And Field Coach Relationship Specialty Start Date End Date Unknown None PCP - General 06/30/12 04/29/13 documented as of this encounter
--- OUTSIDE RECORDS SUMMARY | 2023-10-03 01:25 | XMS_ITS | Encounter Summary ---
Author Organization [facility] Address [facility] [place] [address] Care Team Providers Care Heading Pinner Name Role Phone Kallie Lopez MD Primary Care Provider [phone] Encounter Details Date Type Department Care Team (Late st Contact Info) Description 04/05/2010 3:00 PM EST Office Visit Dermatology [address] [facility] [address] [place], [place] [address] Kimo Fournier MD [address] [facility] [address] Social History Tobacco Use Types Packs/Day Years [...] 2:00 PM EDT Office [place] [address] Carlos Veloz MD [facility] [place] [address] documented as of this encounter Visit Diagnoses Not on filedocumented in this encounter Care Teams Heading Pinner Relationship Specialty Start Date End Date Kallie Lopez MD [address] [place] [address] PCP - General 01/17/10 06/29/12 documented as of this encounter
--- OUTSIDE RECORDS SUMMARY | 2023-10-03 01:25 | XMS_ITS | Encounter Summary ---
Author Organization [facility] Address [facility] [place] [address] Care Team Providers Care Athletic Equipment Custodian Name Role Phone Unknown Primary Care Provider Unavailabl e Reason for Referral * Physical Therapy (Routine) - Complete - Patient Will Schedule External Appt Specialty Diagnoses / Procedures Referred By Giles girard Referred To Contact Physical Therapy Diagnoses Impingement syndrome of shoulder Shoulder joint pain Biceps tendonitis Gladis Drummond PA [facility] [place] [address] Referral ID Status Reason Start Date Expiration Date Visits Requested Visits Authorized [id number] Complete - Patient Will Schedule External Appt Evaluate and Treat 06/30/2012 12/27/2012 12 12 Reason for Visit * Reason Comments Left Shoulder Pain SP L SHOULDER SCOPE DOS 06/29/2009 Encounter Details Date Type Department Care Team (Late st Contact Info) Description 06/30/2012 2:10 PM EDT Office [place] [address] Gladis Drummond PA [facility] [place] [address] Impingement syndrome of shoulder (Primary Dx); Shoulder joint pain; Biceps tendonitis Discharge Disposition: Home Social History Tobacco Use [...] Sign Reading Time Taken Comments Blood Pressure 136/86 06/30/2012 2:48 PM EDT RIG HT ARM Pulse 67 06/30/2012 2:48 PM EDT Temperature - - Respiratory Rate - - Oxygen Saturation - - Inhaled Oxygen Concentration - - Weight 122.5 kg (270 lb) 06/30/2012 2:48 PM EDT PT STATED Height 185.4 cm (6' 1) 06/30/2012 2:48 PM EDT P T STATED Body Mass Index 35.62 06/30/2012 2:48 PM EDT documented in this encounter Progress Notes * Gladis Drummond PA - 06/30/2012 3:35 PM EDT PATIENT NAME: Porsha Park AGE: 42 y.o. MR#: [id number] DATE OF VISIT: 06/30/2012 DATE OF INJURY/ONSET: November 17, 2010; workers compensation STAFF: Dr. Rodriguez CHIEF COMPLAINT: Continued left shoulder pain HISTORY OF PRESENT ILLNESS Mr. Xavier roberts 42 y.o. year old male comes into clinic today for followup appointment regarding left shoulder discomfort after an MRI examination. The patient continues to havesignificant discomfort in regards to his left shoulder. The patient also complained of numbness andtingling down the left arm and was referred to the spine clinic for evaluation. PHYSICAL EXAM: Mr. Xavier roberts 42 y.o. is alert and oriented. He appears in no acute discomfort and is resting comfortably in a chair in the exam room. RADIOLOGICAL STUDIES: MRI examination of the patient's left shoulder shows by radiology report: Findings No acute osseous injury. The acromioclavicular [...] a degree of synovitis within the joint. ASSESSMENT: Bicipital tendinopathy with labral tear extending from the biceps anchor and the posterior labrum; partial thickness rotator cuff pathology PLAN: I spent approximately 15 minutes of this 20 minute visit discussing Mr. Park's radiologic findings and physical exam findings. I spent a lengthy amount of time discussing the patient's MRI examination with the plastic shoulder model. The patient has 2 different areas that may be causing him his discomfort the subacromial space/partial thickness rotator cuff tear and glenohumeral joint/labral pathology/bicipital pathology. It seems most appropriate at this time to administer a glenohumeralcortisone injection. I discussed with the patient that if he does not have any significant relief from a glenohumeral cortisone injection we could then try a subacromial cortisone injection. The patient understands that the injections are both therapeutic as well as diagnostic. If the patient does not have a significant decrease in his symptoms from either of the injections we would then concentrate more of our evaluation on his cervical spine. The patient understands that he may actually have p athology in both the cervical spine as well as his left shoulder. I will defer to the spine center in regards to the cervical spine evaluation and treatments.The patient's workers compensation paperwork was filled out at today's visit the patient is status post a previous surgical procedure on his l eft shoulder. It is more likely than not that his continued shoulder pathology was an exacerbation of his previous injury. I will plan to see the patient back in approximately 4 weeks after his glenohumeral cortisone injection. The patient understands to contact me if he has any other questions or concerns. documented in this encounter Miscellaneous Notes * Miscellaneous - Provider, Scanning - 07/03/2012 9:07 AM EDT documented in this encounter Plan of Treatment Upcoming Encounters Date Type Department Care Team (Late st Contact Info) Description 10/03/2023 2:00 PM EDT Office [place] [address] Carlos Veloz MD [facility] DR [place]OP[place]ED[place] [address] Scheduled Referrals Name Type Priority Associated Diagnoses Orde r Schedule Referral to Physical Therapy Outpatient Referral Routine Impingement syndrome of shoulder Shoulder joint pain Biceps tendonitis Ordered: 06/30/2012 documented as of this encounter Visit Diagnoses Diagnosis Impingement syndrome of shoulder- Primary Other affections of shoulder region, not elsewhere classified Shoulder joint pain Pain in joint, shoulder region Biceps tendonitis Bicipital tenosynovitis documented in this encounter Care Teams Athletic Equipment Custodian Relationship Specialty Start Date End Date Unknown None PCP - General 06/30/12 04/29/13 documented as of this encounter
--- OUTSIDE RECORDS SUMMARY | 2023-10-03 01:25 | XMS_ITS | Encounter Summary ---
[facility] [place] [address] Care Team Providers Care Cream Beater Name Role Phone Unknown Primary Care Provider Unavailabl e Reason for Visit * Reason Comments Left Shoulder Pain left arm tingling Neck Pain Encounter Details Date Type Department Care Team (Latest Contact Info) Description 06/30/2012 1:05 PM EDT Office [place] [id number] Preet Dodd PA [facility] [place] [address] Left shoulder pain (Primary Dx); Neuropathy; Cervical radiculopathy Discharge Disposition: Home Social History Tobacco Use [...] this encounter Patient Instructions * Patient Instructions* Eileen Myers LPN - 06/30/2012 1:43 PM EDT Welcome to [employer]book, your secure online access to your electronic medical record at [facility]. Using Goalbook you will be able to send messages to your providers, view your test results, renew prescriptions, schedule appointments, and much more. Follow these instructions to enter your personal Goalbook account for the first time: 1. Start your internet browser and type [email or web address] into the address bar. 2. In the New User box on the right-hand side of the Welcome page click the link that states, ???I have an activation code.?? 3. On the Identification page, follow these steps: a) Enter your myD-H activation code: [email or web address] b) Expires: 08/14/2012 1:43 PM IMPORTANT: This Activation Code will on the above mentioned date. If you do not sign up for myD-H by this date, you will need to request another activation code. c) Enter your date of , using the calendar tool provided. d) Enter your Zip code. e) Select ???submit?? to go to the next page. 4. On the Create Account page, follow these steps: a) Create a myD-H username. This can???t be changed, so choose one you won???t forget. b) Create a password that???s at least six characters long, and that contains at least two numbers.Your password can be changed at any time. Confirm your password by entering it once more. c) Enter your email address. This will be used to alert you to new information. Confirm your email address by entering it once more. d) Enter your security question. This will be used if you forget your password. e) Enter your security answer. Confirm your security answer by entering it once more. f) Select ???submit?? to view your electronic medical record. If you have any questions about myD-H or your Access Code, please call for [place], for [place] or for [place]. If you need technical support, please e-mail . Remember, myD-H is NOT for urgent needs! Always dial 911 for medical emergencies. documented in this encounter Progress Notes * Preet Dodd PA - 06/30/2012 2:29 PM EDT Chief Complaint: Chief Complaint Patient presents with ??? Left Shoulder Pain left arm tingling ??? Neck Pain HPI: This patient is a 42 y.o. Right-handed male that presents to the spine center for Left shoulder pain, with left arm paresthesias. The patient had a previous shoulder surgery on the left shoulderfor a labral tear and felt very good after this procedure. He then had a return of some pain in theshoulder sometime around the end of 2011 with beginning of 2012. He describes a very similar to hisprevious pain symptoms. However had a new onset of some numbness that went down the left arm into the left thumb. He was evaluated by a shoulder specialist, and did have an MRI of the shoulder which identified a biceps tear. They questioned whether there was any cervical involvement based on the numbness down the hand. He does not describe significant neck pain but there is some discomfort in theleft upper trapezius and left shoulder. He does not describe pain down the arm but does have an electrical sensation and numbness that travels down the left arm to the thumb. He also reports some numbness in both feet which has been going on for a number of years and was identified at one point to have neuropathy. He rates his pain currently is a 5/10 with pain ranging between 5-9+. He usually feels worse with arm positions such as having his elbows away from his side, working overhead or for neck positions he feels better in a recliner. He does not report any bowel or bladder incontinence or myelopathic symptoms, however he does describe An electrical sensation and numbness in both almazan feet when he flexes his neck. His treatments have included Advil and he has been scheduled for a glenohumeral joint injection. He has not had any prior spine surgeries and is no history of cancer. ROS: Negative for any GI, or constitutional symptoms. Medications & Allergies: Are updated on the system. Problem List: Patient Active Problem List Diagnoses Code ??? Elbow pain, right 719.42 ??? 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 Left shoulder pain 719.41 ??? Neuropathy 355.9 ??? Cervical radiculopathy 723.4 PMH: Past Medical History Diagnosis Date ??? High blood pressure PSH: Past Surgical History Procedure Date ??? Shoulder arthroscopy Social Hx: History Social History ??? Marital Status: Spouse Name: N/A Number of Children: N/A ??? Years of Education: N/A Occupational History ??? Not on file. Social History Main Topics ??? Smoking status: Current Everyday Smoker -- 1.5 packs/day for 25 years Types: Cigarettes ??? Smokeless tobacco: Never Used ??? Alcohol Use: 15.0 oz/week 25 Shots of liquor per week ??? Drug Use: No ??? Sexually Active: Not on file Other Topics Concern ??? Not on file Social History Narrative ??? No narrative on file Physical Exam: This patient is a mildly heavyset 42-year-old male who is alert and oriented x3. He is without any scoliosis. He ambulated with a nonantalgic gait and was able to toe and heel walk along with tandem walk without difficulty. He had no tenderness in the middle of the cervical spine but there was somemild tenderness at L5-S1. He has full lumbar range of motion with some mild low back discomfort in both flexion and extension. His cervical range of motion was full in all directions but does reproduce left upper trapezius discomfort to his shoulder on flexion, extension and left rotation. Neurologically he does have some generalized decreased sensation in both legs in a stocking pattern low the k nees. His reflexes were 2+ and symmetrical in all extremities. Motor testing was 5/5 in all extremities. Spurling's test was positive to the left causing increased paresthesias down the arm. He is a negative straight leg raise and cross straight leg raise. There is a negative Tinel's and Phalen's test. There is no clonus and negative Babinski and Rojas's. Distal pulses are intact. Imaging: He does not have any current cervical spine imaging. Assessment: This patient has a mixed picture of left shoulder pain associated with bicipital tendoninjury, and potential C6 radiculopathy. He also appears to have bilateral neuropathy in his lower extremities. Plan: I have reviewed with the patient that I do believe there is a significant chance he may have a cervical pathology causing his left arm numbness. However he also appears to have some potential shoulder pathology. He is scheduled for the glenohumeral joint injection which I think is reasonable to have. If this resolves all his symptoms, he could potentially consider canceling any future imaging for the cervical spine. However based on physical exam findings I think it is reasonable to get acervical x-ray and MRI. I have reviewed his lower extremity does sound like neuropathy, and I wouldbe glad to either refer him to a neurologist or he can have his primary care physician make this referral as well. After our discussion and answering the patients questions, we have come to an aggreement in the below stated plan: 1) I have ordered plain films and an MRI of the cervical spine and I will followup with the patientafter the images are complete. However I will mail him the results of the x-ray, as if there is significant spondylitic changes I may request MRI gets ordered even if the injection proves his arm symptoms. This dictation was performed using [employer] voice recognition dictation. documented in this encounter Plan of Treatment Upcoming Encounters Date Type Department Care Team (Late st Contact Info) Description 10/03/2023 2:00 PM EDT Office [place] [phone] Carlos Veloz MD [facility] [place] [address] documented as of this encounter Visit Diagnoses Diagnosis Left shoulder pain- Primary Pain in joint, shoulder region Neuropathy Mononeuritis of unspecified site Cervical radiculopathy Brachial neuritis or radiculitis nos documented in this encounter Care Teams Cream Beater Relationship Specialty Start Date End Date Unknown None PCP - General 06/30/12 04/29/13 documented as of this encounter
--- OUTSIDE RECORDS SUMMARY | 2023-10-03 01:25 | XMS_ITS | Encounter Summary ---
Author Organization [facility] Address [facility] [place] [address] Care Team Providers Care Science Technician Name Role Phone Unavailable Primary Care Provider Unavailabl e Reason for Visit * Reason Comments Leg Pain right Encounter Details Date Type Department Care Team (Late st Contact Info) Description 04/18/2016 9:00 PM EST - 04/19/2016 3:44 PM EST Emergency [place] [address] Zenia Mojica MD [facility] [place] [address] Thigh hematoma, right, initial encounter; Right thigh pain; Accident due to lack of food, initial encounter; Hiking on level or elevated terrain; Leukocytosis, unspecified type; Cigarette nicotine dependence with withdrawal Discharge Disposition: Home Social History Tobacco Use [...] Sign Reading Time Taken Comments Blood Pressure 148/82 04/19/2016 3:40 PM EST Pulse 80 04/19/2016 3:40 PM EST Temperature 37.2 ??C (99 ??F) 04/18/2016 9:05 PM EST Respiratory Rate 16 04/19/2016 3:40 PM EST Oxygen Saturation 100% 04/19/2016 3:40 PM EST Inhaled Oxygen Concentration - - Weight 111.1 kg (245 lb) 04/18/2016 9:05 PM EST Height 185.4 cm (6' 1) 04/18/2016 9:05 PM EST Body Mass Index 32.32 04/18/2016 9:05 PM EST documented in this encounter Discharge Instructions * Discharge Instructions* Preet Gómez - 04/19/2016 3:00 PM EST Orthopaedic Home Care Instructions Care of Your Injury Below are general guidelines to follow after treatment for an injury. We will give you more specific instructions depending on the type and location of your injury. You will need to be aware that these guidelines are only general, each person???s recovery may vary. If you have any questions after reading this sheet, please call us. 1. INJURY: right thigh hematoma Activity - Activity as tolerated. - Wrap the right thigh with an saritha wrap for the next 5-7 days. The wrap is called a hip spica wrap 2. Prescriptions ??? None 3. Please contact us if: ??? You have excessive swelling, feel excessive pain or your injured extremity becomes numb. ??? If you develop fevers, chills, night sweats, weight loss during the next several months If you have any questions or concerns, please call the following: Orthopaedic Clinic Saturday thru Saturday 8am - 5pm: [phone] Orthopaedic Physician control systems designer --After 5pm and Weekends: [phone] We are interested in your prompt and healthy recovery. Please follow the above instructions. Your care today was provided by Preet Gómez MD Follow-up: - You will not need to follow up with orthopaedic surgery unless your condition worsens or does notimprove - Please follow up with you primary care physician regarding inherited or acquired bleeding disorders. Please ask for the appropriate tests to be ordered documented in this encounter Medications at Time [...] tablet Take 1 tablet by mouth daily. hydroCHLOROthiazide (HYDRODIURIL) 25 mg Tablet Take 25 mg by mouth daily. 06/27/2016 aspirin 81 mg EC tablet Take 81 mg by mouth daily. 08/15/2018 ibuprofen (ADVIL;MOTRIN) 200 mg tablet Take 800 mg by mouth every 6 hours as needed. 02/20/2018 Bxps-Syxedn-MftrpwJthw-D3 -C-Mn (GLUCOSAMINE-CHONDROITIN- VIT D3) 500-400-667 mg-mg-unit Cap Take 1 tablet by mouth daily. 06/27/2016 documented as of this encounter ED Notes * Tanner Kay MD - 04/19/2016 3:44 PM EST ED Resident Follow-up Note: Time of transfer of care: 644 Care transferred from: Dr. Melany Velazquez Condition at time of transfer: fair Clinical Summary: 46 y.o. old male in the process of being evaluated for right thigh pain. Please see Dr. Velazquez's notes for their initial evaluation, assessment and plan. Briefly, he had initially presented to the ED at [facility] yesterday after having felt a pop in his right leg with subsequent onset of pain. CT imaging at that facility showed evidence of likely hematoma versus mass. He did have some leukocytosis of there was also concern for infectious process. Transferred here for orthopedic evaluation and MRI imaging. Currently awaiting MRI. Pain controlled with IV morphine. Subsequent ED Course: Patient given a nicotine patch for withdrawal symptoms. Prior to MRI he was administered 1 mg of lorazepam for anxiety. MRI was uneventful and he returned to the ED. Results were suggestive of an organizing hematoma but hemorrhagic neoplasm cannot be ruled out. Discussed findings with Orthopedics, who reviewed the imaging and spoke further with the patient. They felt that loki likely had a hematoma and that he could be discharged safely with PCP follow-up. Patient was agreeable to this plan. Pain was significantly improved and he was able to ambulate without difficulty. Final Assessment: Right thigh hematoma Final Plan: Discharge home Condition at Discharge: good Alcon Aguilar MD Resident 04/19/16 7428 ED ATTENDING ATTESTATION NOTE The patient was seen in conjunction with Dr. Aguilar, the resident physician. I have independently performed the iglliam portions of the history and physical exam. I have reviewed the nursing notes, vital signs, and all diagnostic studies personally including labs, imaging studies and EKGs. I have d iscussed the details of the case with the resident and agree with the assessment and plan as described in the resident note above unless noted otherwise below. Brief Summary: 46-year-old male with right thigh pain sent from outside hospital for abnormality seen on CT scan. Orthopedics was consultative and recommended MRI. This was done and felt to be most consistent with hematoma. Patient's pain improved over time and he was able to ambulate. Orthopedics felt comfortable with discharge and the patient was given return precautions and sent home in stablecondition. Final Assessment: Right thigh hematoma Tanner Kay MD 04/22/16 0017 * Keysha Rajput RN - 04/19/2016 2:50 PM EST Pt given something to eat, called his ride to come pick him up. Keysha Almodovar RN - 04/19/2016 10:57 AM EST Pt to MRI. Keysha Almodovar RN - 04/19/2016 8:31 AM EST PT in to see patient. Keysha Almodovar RN - 04/19/2016 7:46 AM EST Pt reports relief from pain meds, states I couldn't move my leg up like this before and now I esteban pt lifts leg off bed. Pt awaiting MRI at 1100. * Dorcas Linton RN - 04/19/2016 5:31 AM EST Patient is resting comfortably. Respirations even and unlabored. Will continue to monitor. * Dorcas Linton RN - 04/19/2016 4:07 AM EST Patient resting quietly, respirations even and unlabored, eyes closed. Gurney in lowest position, side rail up for safety, call light within reach. Will continue to monitor. * Dorcas Linton RN - 04/19/2016 2:43 AM EST Patient c/o leg pain and general aches, repositioned on gurney for comfort. * Dorcas Linton RN - 04/19/2016 1:49 AM EST Patient returned from radiology via gurney. Positioned for comfort. Will continue to monitor. * Dorcas Linton RN - 04/19/2016 1:21 AM EST Patient informed of plan of care, agreeable to plan at this time. Patient awaiting xray and results. Gurney in lowest position, side rail up for safety, call light within reach. Patient denies needs/new complaints at this time. Will continue to monitor. * Dorcas Linton RN - 04/19/2016 12:56 AM EST Patient returned from CT via gurney. * Dorcas Linton RN - 04/19/2016 12:10 AM EST Patient informed of plan of care, agreeable to plan at this time. Patient awaiting CT. Cherise in lowest position, side rail up for safety, call light within reach. Patient denies needs/new complaintsat this time. Will continue to monitor. * Dorcas Linton RN - 04/18/2016 10:10 PM EST MD at bedside. * Dorcas Linton RN - 04/18/2016 10:06 PM EST Patient informed of plan of care, agreeable to plan at this time. Patient awaiting MD evaluation and orders. Cherise in lowest position, side rail up for safety, call light within reach. Patient denies needs/new complaints at this time. Will continue to monitor. * Melany Velazquez - 04/18/2016 10:02 PM EST Porsha Park [id number] Porsha Park [id number] Chief Complaint: right inner thigh pain HPI Porsha Park is a 46 y.o. male with PMHx of neuropathy of uncertain etiology who presents to the Emergency Department in transfer for [facility] for right thigh adductor mass. Patient reports that he hasa history of some aches and pains however was walking today when he felt a sudden pop and was unable to ambulate. He went to an [facility] where he was seen by an orthopedist as there is concern for possible abscess given leukocytosis versus hematoma versus mass they sent him here via ambulance for an emergent MRI. At [facility] he was noted to have a fever per the patient. He also had a leukocytosis. This morning awoke with a sore throat and congestion. Review of Systems: Significant for sore throat. Denies any fevers, chills, nausea, vomiting prior to arrival at the outside hospital. Does note fever at the outside hospital. 10 point review of systems otherwise negative unless as noted in history of present illness Temp: [37.2 ??C (99 ??F)] Heart Rate: [71-80] Resp: [15-20] BP: (138-170)/(70-98) SpO2: [94 %-97 %] Heart Rate from SPO2: [71 bpm-80 bpm] Physical Exam: Gen: Alert, oriented in NAD HEENT: PERRLA , erythematous petechial rash on posterior oropharynx without oropharyngeal exudate Neck: supple Resp: lungs CTA, no wheezes or rhonchi CV: RRR Abdomen: soft, NT, ND Ext: Fullness in the right medial thigh and posterior thigh. Right lower extremity: Sensation intact to light touch to superficial peroneal, deep peroneal sural and saphenous nerve distributions however patient reports decreased sensation. Palpable 1+ DP and PT pulses. Compartments soft. Nontender with internal and external rotation of the hip able to actively extend and flex knee and ankle and EHL FHL grossly intact, no pitting edema Skin: WWP Neuro: EOM intact, oriented, moving all four ext spontaneously Recent Results (from the past 24 hour(s)) Urinalysis with reflex Culture Result Value Ref Range Glucose UA Negative Negative mg/dL Protein UA Negative Negative mg/dL Bilirubin UA Negative Negative mg/dL Urobilinogen UA Normal Normal mg/dL pH UA 7.0 5.0 - 8.0 Blood UA Negative Negative mg/dL Ketones UA Negative Negative mg/dL Nitrite UA Negative Negative Leukocytes UA Negative Negative mcL Appearance UA Clear Clear Spec Logsden UA 1.004 1.002 - 1.030 Color UA Straw Yellow RBC UA <1 0 - 3 /HPF WBC UA Not Present 0 - 3 /HPF Culture Reflexed No Urine Hold Result Value Ref Range Urine Hold Sample in lab. Basic Metabolic Panel (non-fasting) Result Value Ref Range Glucose Lvl 112 65 - 199 mg/dL BUN 8 (L) 10 - 20 mg/dL Creatinine 0.64 (L) 0.80 - 1.50 mg/dL Sodium 138 135 - 145 mmol/L Potassium 3.5 3.5 - 5.0 mmol/L Chloride 100 98 - 107 mmol/L CO2 27 22 - 31 mmol/L Anion Gap 11 5 - 15 mmol/L Calcium 8.7 8.5 - 10.5 mg/dL Estimated GFR >60 >=60 Prothrombin Time Result Value Ref Range PT 13.1 12.0 - 15.0 sec INR 1.0 0.9 - 1.1 APTT Result Value Ref Range PTT 27 25 - 35 sec Sedimentation rate Result Value Ref Range Sed Rate 2 0 - 15 mm/hr CRP, acute inflammation Result Value Ref Range CRP 6.0 (H) <=4.9 mg/L CK Result Value Ref Range CK, Total 58 0 - 200 unit/L Hemogram Result Value Ref Range WBC 11.5 (H) 4.0 - 9.5 x10(3)/mcL RBC 4.57 (L) 4.58 - 5.54 x10(6)/mcL Hemoglobin 15.1 13.7 - 16.5 gm/dL Hematocrit 42.7 40.5 - 48.5 % MCV 93.4 (H) 82.9 - 93.1 fL MCH 33.0 (H) 27.5 - 32.1 pg MCHC 35.4 32.0 - 35.7 gm/dL Platelets 209 145 - 357 x10(3)/mcL RDWSD 40.7 36.0 - 45.0 fL RDWCV 11.8 11.4 - 13.8 % MPV 11.5 7.6 - 12.9 fL nRBC % Auto 0.0 % nRBC Abs Auto 0.000 0.000 - 0.000 x10(3)/mcL Differential, Automated Result Value Ref Range Neutrophils % 71.7 % Neutr Abs (ANC) 8.25 (H) 1.70 - 6.10 x10(3)/mcL Lymphocytes % 18.9 % Lymphocytes Abs 2.2 0.9 - 3.2 x10(3)/mcL Monocytes % 7.8 % Monocyte Abs 0.9 0.3 - 0.9 x10(3)/mcL Eosinophils % 0.8 % Eosinophils Abs 0.1 0.0 - 0.4 x10(3)/mcL Basophils % 0.4 % Basophils Abs 0.0 0.0 - 0.1 x10(3)/mcL Immature Gran % 0.40 % Leanne Gran Abs 0.05 (H) 0.00 - 0.04 x10(3)/mcL ED Course: - Patient was evaluated and discussed with Dr. Mojica - Medications, allergies and past medical history reviewed - Morphine for pain - As patient was sent here for a stat MRI I discussed the case with the residential direct support professional. As we did not have techs available unable to perform MRI tonight. Given concern at outside hospital for possible hematoma or abscess CT with IV contrast was obtained and orthopedics was consulted. - I reviewed the CT with contrast and discussed with residential direct support professional: likely thigh hematoma; recommend follow up with MRI - Discussed with orthopaedics and hospital medicine; per orthopaedics recommend MRI no acute surgical need. Per hospital medicine no beds available at this time and MRI capability at [facility] during day - Discussed with residential direct support professional again after final read; still unable to guarantee MRI time at time of diccussion - PT consult placed - account manager education contacted given difficulty obtaining MRI and with no beds by Dr. Mojica - tylenol given for pain MDM and A/P: Assessment: 46 y.o. male who presents with symptoms of right thigh pain and inability to ambulate. Compartments soft in the ED at time of sign-out. No evidence of fracture on CT or AP pelvis. CT not consistent with abscess and abscess thought unlikely to CRP of 6. Per radiology recommend MRI to confirm hematoma as patient does not have risk factors for hematoma. Plan: - Pending MRI and disposition Melany Velazquez MD Resident 04/19/16 0655 Associated attestation - Zenia Mojica MD - 05/04/2016 7:33 AM EST ED ATTENDING ATTESTATION NOTE The patient was seen in conjunction with the resident physician. I have independently performed thekey portions of the history and physical exam. I have reviewed the nursing notes, vital signs, and all diagnostic studies personally including labs, imaging studies and EKGs. I have discussed the details of the case with the resident and agree with the assessment and plan as described in the resident note above unless noted otherwise below. Dorcas Stephenson RN - 04/18/2016 9:00 PM EST Introduced self to patient as primary RN. Patient informed of plan of care, agreeable to plan at this time. Gurney in lowest position, side rail up for safety, call light within reach. Patient deniesneeds at this time. documented in this encounter Miscellaneous Notes * Initial Assessments - Emanuel Ulrich, PT - 04/19/2016 8:30 AM EST Physical Therapy Evaluation Patient profile: Porsha Park is a 46 y.o. male admitted on 04/18/[address] Mojica, Zenia Lu MDfor R thigh swelling and injury causing inability to bear weight. Per patient, he was ambulating when he heard a pop and had immediate discomfort. Per ortho Given mechanism, patient may have muscle or tendon tear/injury. Patient awaiting MRI to further assess. PT consulted as patient having difficulty getting out of bed and ambulating. PMH: Past Medical History Diagnosis Date ??? High blood pressure Past Surgical History Procedure Laterality Date ??? Shoulder arthroscopy Social History: Patient lives alone in a two level home with bed/shower upstairs. Patient could stay downstairs if necessary. Stairs: FOS to second level with rail. 3 with rail to enter. Baseline Mobility: Independent without an AD. 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 Equipment at home: Cane, crutches Precautions/Special Considerations: WBAT, activity as tolerated. Staff communication/Mobility Recommendations: ?? Pt. to utilize no assistive device or cane and independent for ambulation with nursing. ?? Please encourage up to chair for meal times as able. ?? Pt encouraged to ambulate frequently with staff, getting into the bathroom for toileting and walking out in the hernandez >/= 3 times daily as able. Subjective: ???I'm walking a little funny but I can walk!?? Objective: Pt seen for evaluation today in ED. Pain: 2-3/10 R posterior thigh, firmness appreciated to this area as compared to L thigh Vital Signs: WNL Mental Status: alert, oriented to person, place, and time Musculoskeletal: ROM: Full ROM Strength: WFL, able to perform SLR, LAQ, anti-gravity movement of RLE Sensation: Impaired at baseline secondary to neuropathy, numbness to celio LE as well as hypersensitivity to touch at times Skin and Soft Tissue: Intact, firmness to R posterior thigh, no erthyma noted Bed Mobility: Supine to Sit: Independent. Some difficulty donning R sock/shoe but patient able to do with time, offered ADL equipment which patient declined Sit to Supine: Independent, cued to hook RLE using LLE for comfort. Transfers: Sit to Stand: Independent Stand to Sit: Independent Gait: Distance: ~200ft Device used: no assistive device. Did ambulate ~10ft with cane in LUE to offload RLE however patient didn't feel this was of much benefit and declined to continue using. Patient has cane at home if necessary. Level of assist: Distant supervision at first, patient can ambulate independently Gait pattern: Decreased stance time through RLE, increased R hip ER for comfort, patient able to comfortably take weight through RLE without buckling Stairs: Pt negotiated 4 steps with rail independently. Cued for appropriate sequencing for comfort (up with good, down with bad) which patient performed safely. Balance: Sitting: Good Standing: Good, weight shifted off RLE at times Informed Consent: The patient understands and agrees to the PT treatment plan and goals. Education: patient have been educated on Bed mobility, Assistive device/technique, Stairs, Exercise, Positioning, Equipment use, Gait and Role of therapy and verbalizes understanding. Patient educated on use of ice for pain and swelling control, as well as to keep mobilizing throughout the day to pr event increased stiffness. Patient status, treatment, and mobility recommendations discussed with nursing. Assessment: Porsha Park is a 46 yo M admitted to ED with R thigh pain/swelling with question of hematoma who presents to PT with moderate R thigh pain. Despite pain, patient presents with functional RLE ROM and strength and ability to safely mobilize independently with slight gait alterations. Patient educated on use of cane, appropriate sequencing of stairs, ice and activity recommendations to assist with overall pain control. From PT perspective, patient safe to discharge once medically ready without further skilled therapy needs. Plan: Safe to discharge, no further skilled PT needs. Patient agrees with plan as stated above. Discharge Recommendations: Based on the current findings noted during this evaluation, patient could benefit from Home withoutfurther Skilled Therapy when medically ready for hospital discharge. This recommendation is based on the patient's Current physical impairments, Prior functional statusand Reported home support and may change based on patient progress during this hospitalization. Consult Recommendations: No other consults recommended at this time Equipment needs: Patient has cane if needed. Total time spent with patient: 31 minutes Total timed interventions: 0 minutes for IE EMANUEL ULRICH, PT 04/19/2016 Pager: [phone] Physical Therapy Rehabilitation Department * Consult Note - Carlos Veloz MD - 04/18/2016 11:12 PM EST Orthopaedic Surgery Consult Note Attending: Magdiel Transferred from: The patient was transferred from [facility]. I have been asked by Zenia Mojica MD to see Porsha Park for inability to ambulate, R hip/thigh pain; possible hematoma vs mass. Chief Complaint: R hip/thigh pain History of Present Illness: Porsha Park is a 46 y.o. male who was ambulating in the hernandez at workaround 1100 today when he felt a cramping/pop sensation in his R leg particularly involving the buttock, groin, thigh. He had some discomfort and this progressed to the point that he had trouble moving the leg and ambulating so he went to [facility] for evaluation. CT showed swelling concerning for hematoma vs mass. He had a slight fever and WBC 13 so there was concern for infectious etiology. I was contacted for transfer; however, due to uncertainty of definitive orthopaedic issue, I recommended transfer to ER for further evaluation. Transferring provider wanted MRI, so patient was sent [place] [facility] [place] further evaluation and MRI. On arrival, patient notes substantial pain in R thigh, hip, buttock/groin. Denies numbness and tingling (beyond baseline neuropathy - possibly due to EtOH). Reports difficulty ambulating. Denies history of malignancy. No bleeding or clotting disorders. No additional trauma, no inciting event. Denies fall or additional injury. Past Medical History: Patient Active Problem List Diagnosis Code ??? Elbow pain, right M25.521 ??? 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 Left shoulder pain M25.512 ??? Neuropathy G62.9 ??? Cervical radiculopathy M54.12 Past Surgical History: Past Surgical History Procedure Laterality Date ??? Shoulder arthroscopy Allergies: No Known Allergies No current facility-administered medications on file prior to encounter. Current Outpatient Prescriptions on File Prior to Encounter Medication Sig Dispense Refill ??? lisinopril (PRINIVIL;ZESTRIL) 20 mg tablet Take 20 mg by mouth daily. ??? aspirin 81 mg EC tablet Take 81 mg by mouth daily. ??? ibuprofen (ADVIL;MOTRIN) 200 mg tablet Take 800 mg by mouth every 6 hours as needed. ??? ascorbic acid (VITAMIN C) 500 mg tablet Take 500 mg by mouth daily. ??? atenolol (TENORMIN) 100 mg tablet Take 100 mg by mouth daily. ??? Zhuz-Vfodxa-EbxeyxNjnf-D3-C-Mn (ZCFEINZHMYD-BWVMAQIZYBG-KEG D3) 500-400-667 mg-mg-unit Cap Take1 tablet by mouth daily. ??? multivitamin with minerals (THERA-M) 9-0.4 mg tablet Take 1 tablet by mouth daily. Family History: Negative for bleeding/clotting disorders or anesthetic complications. 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 Marital status: Spouse name: N/A ??? Number of children: N/A ??? Years of education: N/A Occupational History ??? Not on file. Social History Main Topics ??? Smoking status: Current Every Day Smoker Packs/day: 1.00 Years: 25.00 Types: Cigarettes ??? Smokeless tobacco: Never Used ??? Alcohol use 15.0 oz/week 25 Shots of liquor per week ??? Drug use: No ??? Sexual activity: Not on file Other Topics Concern ??? Not on file Social History Narrative Review of Systems: As per HPI, otherwise negative Objective: Temp: [37.2 ??C (99 ??F)] Heart Rate: [76] Resp: [15-20] BP: (138-170)/(70-91) SpO2: [95 %-97 %] Heart Rate from SPO2: [75 bpm] Recent Labs 04/18/162234 NA 138 K 3.5 CL 100 CO2 27 BUN 8* CREATININE 0.64* GLUCOSE 112 CALCIUM 8.7 Recent Labs 04/18/162234 WBC 11.5* HGB 15.1 HCT 42.7 MCV 93.4* PLATELET 209 Recent Labs 02/22/17 2235 PT 13.1 INR 1.0 No results for input(s): AST, ALT, ALKPHOS, ALB, LIPASE in the last 72 hours. Invalid input(s): TBILI, TP No results for input(s): HDL in the last 72 hours. Invalid input(s): CHOLESTEROL, LDL, TG Sed Rate: CRP: Lab Results Component Value Date CRP 6.0 (H) 04/18/2016 Gen: NAD, awake, alert, appr HEENT: NC, AT CV: RRR with no M/R/G Pulm: CTAB, no increased WOB Skin: Intact Psych: Normal mood and affect Right Lower Extremity Exam- Painless range of motion of ankle. No gross deformity. Compartments soft. No crepitus. Mild to moderate pain with hip ROM; mild pain in knee ROM. No effusion in knee / ankle No ecchymosis, erythema, or overlying skin changes. Sensation intact to light touch in Saphenous/Sural/LFC/Femoral/MP/LP/T/DP/SP distributions Motor intact ankle flexion/extension, EHL/FHL/TA. Motor intact to hip flexion, knee flexion/extension, but both limited by pain. Brisk capillary refill distally 2+ DP/PT pulses There appears to be substantial difference in size between R and L thigh musculature particularly in posterior compartment. There is no impressive fluid wave; feels like tissue rather than a fluid-filled lesion. Left Lower Extremity Exam- Painless range of motion of Hip / knee / ankle. No gross deformity. Compartments soft. No crepitus. No effusion in knee / ankle No ecchymosis, erythema, or overlying skin changes. Sensation intact to light touch in Saphenous/Sural/LFC/Femoral/MP/LP/T/DP/SP distributions Motor intact (5/5) hip flexion/extension, knee flexion/extension, ankle flexion/extension, EHL/FHL/TA Brisk capillary refill distally Imaging: CT pelvis w/o contrast - possible avulsion injury at R greater trochanter; may represent osteophyteor enthesophyte. There is substantial difference in bulk of adductor or hamstring musculature on right when compared to contralateral. Difficult to assess for fluid given lack of contrast. Assessment/Plan: 46 y.o. male who presents with right thigh swelling and injury causing inability to bear weight. Agree with obtaining MRI as was plan for transfer. Do not appreciate obvious orthopaedic pathology at this time. Given mechanism, patient may have muscle or tendon tear/injury. Certainly, MRI represents best tool to assess for fluid collection vs mass vs soft tissue injury. In interim, would recommend obtaining second read on CT pelvis. XR pelvis may also be of utility. No acute surgical indications at this time per orthopaedic surgery. - Activity- as tolerated - DVT prophylaxis- per primary - Antibiotics: None at this time - Diet - NPO at MS in case intervention becomes necessary - Labs - pending - Imaging Needed - MRI, 2nd read CT, XR pelvis - Medications prescribed - pain control - Follow-up - pending hospital course - To be discussed with Dr. Veloz I have contacted the referring team and discussed our evaluation and recommendations as listed above. The orthopaedic service will continue to follow this patient. Thank you for the opportunity to assist in their evaluation and treatment. Please call Ortho resident control systems designer with any questions or concerns. Ila Dominguez MD Orthopaedic Surgery #[id number] I discussed the patient and the plan for the patient's care with the primary author and reviewed the accompanying imaging. I have reviewed and agree with the findings and the plan of care as outlined above, with the following additions or alterations: Now that this patient is in the emergency department, we would suggest an MRI of the thigh to evaluate for mass vs injury vs hematoma. Carlos Veloz MD [facility] Orthopaedic Surgery * ED Triage - Dorcas Linton RN - 04/18/2016 9:10 PM EST Patient seen in [facility] ER today for c/o right hip/thigh/groin pain. Denies injury. Patient also reports swelling to posterior thigh and difficulty ambulating due to increased pain. Palpable pedal pulses, skin warm dry and intact. Patient with hx neuropathy, denies increased numbness/tingling. Patient able to move lower extremity. documented in this encounter Plan of Treatment Upcoming Encounters Date Type Department Care Team (Late st Contact Info) Description 10/03/2023 2:00 PM EDT Office Visit Orthopaedics at [place] [phone] Carlos Veloz MD [facility] [place] [address] documented as of this encounter Procedures Procedure Name Priority Date/Time Associated Diagnosis Comments MRI LOWER EXTREMITY RIGHT NON JOINT WITH/WO CONTRAST STAT 04/19/2016 12:48 PM EST XR PELVIS STAT 04/19/2016 1:[address] ANGIOGRAM LOWER EXTREMITY RIGHT STAT 04/19/2016 12:59 AM EST CRP, ACUTE INFLAMMATION STAT 04/18/2016 10:35 PM EST HEMOGRAM STAT 04/18/2016 10:35 PM EST DIFFERENTIAL, AUTOMATED STAT 04/18/2016 10:35 PM EST APTT STAT 04/18/2016 10:35 PM EST SEDIMENTATION RATE STAT 04/18/2016 10 :35 PM EST PROTHROMBIN TIME STAT 04/18/2016 10:3 5 PM EST CBC (WITH DIFF) STAT 04/18/2016 10:35 PM EST CK STAT 04/18/2016 10:35 PM EST BASIC METABOLIC PANEL STAT 04/18/2016 10:35 PM EST URINE HOLD STAT 04/18/2016 10:21 PM EST URINALYSIS WITH REFLEX CULTURE STAT 04/18/2016 10:21 PM EST documented in this encounter Results * MRI Lower Extremity Non Joint wwo Contrast Right (04/19/2016 12:48 PM EST) Anatomical Region Laterality Modality Hip, Thigh, Knee, Leg, Ankle, Foot Right Magnetic Resonance Impressions 04/19/2016 1:43 PM EST Impression: 1. ??Centrally within the abductor compartment of the right thigh there is a lobulated mixed signal intensity collection surrounded by a large amount of fluid dissecting between tissue planes and within the muscles of the adductor compartment. 2. ??The irregular contour of the lesion, and the presence of a large amount of surrounding edema or inflammation as well as the mixed signal intensity without nodular enhancement is most consistent with ??organizing hematoma, especially given the patient's clinical history of acute onset of pain. An alternative possibility in this patient is diabetic muscle infarction. 3. ??It is difficult, if not impossible, to absolutely exclude the possibility of a hemorrhagic neoplasm. Continued follow-up is recommended as is correlation with the clinical history and physical examination. Narrative 04/19/2016 1:43 PM EST EXAMINATION: ??MRI LOWER EXTREMITY NON JOINT WWO CONTRAST RIGHT CLINICAL HISTORY: ??right thigh mass in adductor muscle Comparison: Comparison is made to a CT scans performed on 04/19/2016 and ??04/18/2016. Technique: T1 weighted, fat suppressed T2 weighted and Inversion Recovery sequences. In-phase and opposed-phase gradient echo images. Diffusion weighted imaging with ADC mapping. Fat suppressed T1 weighted images prior to and following IV contrast administration with time resolved MR perfusion. Contrast: 10 mL of Gadavist administered intravenously. Findings: CT findings: The muscles of the right adductor compartments are swollen and fluid attenuation extends between fascial planes. No fluid fluid levels. No focal calcifications. T he contrast-enhanced exam reveals no focus of abnormal enhancement. No extravasation of contrast is seen. No underlying bone destruction is identified. No fracture is seen MRI findings: A large amount of fluid signal intensity extends throughout the adductor compartment of the right thigh and also dissects between fascial planes well into the inferior thigh and posteriorly and laterally deep to the gluteus kristin muscle. The adductor muscles are edematous. Within this collection of abnormal fluid signal intensity and muscle edema there is a more well-defined masslike collection of abnormal mixed signal intensity. Imaging features: T1-weighted: Slightly higher in signal intensity than adjacent muscle on T1-weighted images. On the fat-suppressed T1 weighted gradient echo and there are foci of increased signal intensity. T2-weighted / inversion recovery: Mixed intermediate and low signal intensity. The margins of the lesion are very well-defined and low in signal intensity. These well-defined margins become more well-defined on the gradient echo fat suppressed T1-weighted images. contrast enhancement: There is little if any enhancement with in this collection of abnormal signal intensity. There is ill-defined enhancement in the adjacent soft tissues. Maximum tumor dimensions: Approximately 12 cm in length. Due to the irregular contour of the lesion, axial dimensions are highly variable. The maximal diameter in the axial plane as seen on image 35 of series 6 is approximately 7 cm. In the central portion of this collection, it narrows to a minimal diameter of approximately 1 cm. Craniocaudal location: The superior most extent of the central collection is at the level of the right ischial tuberosity, where the collection is located between the ischial tuberosity and the greater trochanter of the right femur. It extends inferiorly to the proximal third of the femur. Location of lesion in axial plane: The collection is isolated to the adductor compartment of the thigh. Neurovascular involvement: The sciatic nerve is posteriorly displaced due to the presence of a swollen adductor compartment. I do not however see encasement of the nerve, though abnormal fluid signal intensity surrounds the nerve. No abnormal signal intensity is seen within the nerve. Bone invasion or periosteal reaction: All visualized bones are normal in appearance. Procedure Note Garcia Rosenberg MD - 04/19/2016 EXAMINATION: MRI LOWER EXTREMITY NON JOINT WWO CONTRAST RIGHT CLINICAL HISTORY: right thigh mass in adductor muscle Comparison: Comparison is made to a CT scans performed on 04/19/2016 and 04/18/2016. Technique: T1 weighted, fat suppressed T2 weighted and Inversion Recovery sequences. In-phase and opposed-phase gradient echo images. Diffusion weightedimaging with ADC mapping. Fat suppressed T1 weighted images prior to and following IV contrast administration with time resolved MR perfusion. Contrast: 10 mL of Gadavist administered intravenously. Findings: CT findings: The muscles of the right adductor compartments are swollen and fluid attenuation extends between fascial planes. No fluid fluid levels. No focal calcifications. T he contrast-enhanced exam reveals no focus of abnormal enhancement. No extravasation of contrast is seen. No underlying bone destruction is identified. No fracture is seen MRI findings: A large amount of fluid signal intensity extends throughout the adductor compartment of the right thigh and also dissects between fascial planeswell into the inferior thigh and posteriorly and laterally deep to thegluteus kristin muscle. The adductor muscles are edematous. Within this collection of abnormal fluid signal intensity and muscle edemathere is a more well-defined masslike collection of abnormal mixed signalintensity. Imaging features: T1-weighted: Slightly higher in signal intensity than adjacent muscle on T1-weightedimages. On the fat-suppressed T1 weighted gradient echo and there are foci ofincreased signal intensity. T2-weighted / inversion recovery: Mixed intermediate and low signal intensity. The margins of the lesion arevery well-defined and low in signal intensity. These well-defined marginsbecome more well-defined on the gradient echo fat suppressed T1-weighted images. contrast enhancement: There is little if any enhancement with in this collection of abnormalsignal intensity. There is ill-defined enhancement in the adjacent softtissues. Maximum tumor dimensions: Approximately 12 cm in length. Due to the irregular contour of the lesion, axial dimensions are highly variable. The maximal diameter in the axial plane as seen on image 35 ofseries 6 is approximately 7 cm. In the central portion of this collection, itnarrows to a minimal diameter of approximately 1 cm. Craniocaudal location: The superior most extent of the central collection is at the level of theright ischial tuberosity, where the collection is located between the ischial tuberosity and the greater trochanter of the right femur. It extends inferiorly to the proximal third of the femur. Location of lesion in axial plane: The collection is isolated to the adductor compartment of the thigh. Neurovascular involvement: The sciatic nerve is posteriorly displaced due to the presence of aswollen adductor compartment. I do not however see encasement of the nerve, though abnormal fluidsignal intensity surrounds the nerve. No abnormal signal intensity is seen within the nerve. Bone invasion or periosteal reaction: All visualized bones are normal in appearance. IMPRESSION Impression: 1. Centrally within the abductor compartment of the right thigh there sumeet lobulated mixed signal intensity collection surrounded by a large amountof fluid dissecting between tissue planes and within the muscles of theadductor compartment. 2. The irregular contour of the lesion, and the presence of a largeamount of surrounding edema or inflammation as well as the mixed signal intensitywithout nodular enhancement is most consistent with organizing hematoma,especially given the patient's clinical history of acute onset of pain. Analternative possibility in this patient is diabetic muscle infarction. 3. It is difficult, if not impossible, to absolutely exclude thepossibility of a hemorrhagic neoplasm. Continued follow-up is recommended as iscorrelation with the clinical history and physical examination. Zenia Mojica MD [facility] [place]LES * XR Pelvis (Generic) (04/19/2016 1:51 AM EST) Anatomical Region Laterality Modality Pelvis N/A Digital Radiogra phy Impressions 04/19/2016 1:57 AM EST No displaced fracture or dislocation of the visualized pelvis or hips. Narrative 04/19/2016 1:57 AM EST EXAMINATION: XR PELVIS (GENERIC) CLINICAL HISTORY: right thigh swelling and inability to weight bear TECHNIQUE: AP pelvis COMPARISON: Same day CT of the pelvis FINDINGS: There is no displaced fracture of the visualized pelvis. Sacrum partially obscured by overlying bowel gas and contrast from recent CT. Normal alignment of the right and left hip joint, with no acute fracture or dislocation identified. Visualized soft tissues are unremarkable. Procedure Note Brianne Hathaway MD - 04/19/2016 EXAMINATION: XR PELVIS (GENERIC) CLINICAL HISTORY: right thigh swelling and inability to weight bear TECHNIQUE: AP pelvis COMPARISON: Same day CT of the pelvis FINDINGS: There is no displaced fracture of the visualized pelvis. Sacrumpartially obscured by overlying bowel gas and contrast from recent CT. Normalalignment of the right and left hip joint, with no acute fracture or dislocationidentified. Visualized soft tissues are unremarkable. IMPRESSION No displaced fracture or dislocation of the visualized pelvis or hips. Zenia Mojica MD [facility] [place] ORDERABLES * CT Angiogram Lower Extremity Right (Generic) (04/19/2016 12:59 AM EST) Anatomical Region Laterality Modality Hip, Leg, Knee, Thigh, Ankle, Foot Right Computed Tomography Impressions 04/19/2016 4:02 AM EST Ill-defined nonenhancing hyperdense lesion within the right adductor muscles has an appearance most consistent with a hematoma, though tumor is not excluded. Recommend MRI for further characterization. Findings discussed with Dr. Melany Velazquez by DR. Jaime at ??0400 hrs on 04/19/16. I have personally reviewed the image(s) and the residents interpretation and agree with the findings, Brianne Hathaway at 04/19/2016 4:02 AM Narrative 04/19/2016 4:02 AM EST EXAMINATION: CT ANGIOGRAM LOWER EXTREMITY RIGHT (GENERIC) CLINICAL HISTORY: thigh abductor mass elevated WBC ??? Infection versus tumor versus hematoma TECHNIQUE: Helical CT of the right lower extremity from the hip to the knee was performed after the intravenous administration of 110 cc of Omnipaque 350. Imaging was obtained in the arterial and venous phases. COMPARISON: Noncontrast CT of the pelvis performed at [facility] on 04/18/2016 at 1606 hours. FINDINGS: Ill-defined hyperdense lesion within the right adductor brevis and wilma, unchanged in appearance compared to the outside CT 04/18/2016. The lesion extends from the medial aspect of the right femoral neck to the mid thigh. No mural or internal enhancing components are identified. No active extravasation. No low density collection. No cortical irregularity or osseous lesion. Incidental note is made of a 2.4 cm Da Silva's cyst. Right lower extremity varicosities. Procedure Note Brianne Hathaway MD - 04/19/2016 EXAMINATION: CT ANGIOGRAM LOWER EXTREMITY RIGHT (GENERIC) CLINICAL HISTORY: thigh abductor mass elevated WBC ? Infection versustumor versus hematoma TECHNIQUE: Helical CT of the right lower extremity from the hip to theknee was performed after the intravenous administration of 110 cc of [id number]. Imaging was obtained in the arterial and venous phases. COMPARISON: Noncontrast CT of the pelvis performed at [facility] on 04/18/2016 [id number] hours. FINDINGS: Ill-defined hyperdense lesion within the right adductor brevis andmagnus, unchanged in appearance compared to the outside CT 04/18/2016. The lesionextends from the medial aspect of the right femoral neck to the mid thigh. Nomural or internal enhancing components are identified. No active extravasation. Nolow density collection. No cortical irregularity or osseous lesion. Incidental note is made of a 2.4 cm Da Silva's cyst. Right lower extremity varicosities. IMPRESSION Ill-defined nonenhancing hyperdense lesion within the right adductormuscles has an appearance most consistent with a hematoma, though tumor is notexcluded. Recommend MRI for further characterization. Findings discussed with Dr. Melany Velazquez by DR. Jaime at 0400 hrs on04/19/16. I have personally reviewed the image(s) and the residents interpretationand agree with the findings, Brianne Hathaway at 04/19/2016 4:02 AM Zenia Mojica MD IMG CT ORDERABLES * (ABNORMAL) Differential, Automated (04/18/2016 10:35 PM EST) Neutrophil % 71.7 % [facility] Neutrophil Absolute 8.25(H) 1.70 - 6.10 x10(3)/ L [facility] Lymph % 18.9 % [facility] Lymphocytes Abs 2.2 0.9 - 3.2 x10(3)/[facility] Monocyte % 7.8 % [facility] Monocyte Abs 0.9 0.3 - 0.9 x10(3)/[facility] Eos % 0.8 % [facility] Eosinophils Abs 0.1 0.0 - 0.4 x10(3)/[facility] Basophil % 0.4 % [facility] Baso Absolute 0.0 0.0 - 0.1 x10(3)/[facility] Immature Gran % 0.40 % [facility] Comment: Immature granulocytes(IG's)percentage and absolute count will include metamyelocytes, myelocytes, and promyelocytes. Blood smears from CBCs yielding IG's will be scanned manually for concordance. If this scan disagrees with the automated IG or if promyelocytes are noted, a manual differential will be performed. Immature Gran Absolute 0.05(H) 0.00 - 0.04 x10(3)/ L [facility] Blood specimen (specimen) 04/18/2016 10:35 PM EST 04/18/2016 10:51 PM EST Narrative Resulting Agency Comment Spec In Lab Zenia Mojica MD HEMATOLOGY ORDERABLE S [facility] [place] [address] * (ABNORMAL) Hemogram (04/18/2016 10:35 PM EST) [facility] White Blood Cell 11.5(H) 4.0 - 9.5 x10(3)/mc L [facility] Red Blood Cell 4.57(L) 4.58 - 5.54 x10(6)/mc L [facility] Hemoglobin 15.1 13.7 - 16.5 gm/dL [facility] Hematocrit 42.7 40.5 - 48.5 % [facility] Mean Cell Volume 93.4(H) 82.9 - 93.1 fL [facility] Mean Cell Hemoglobin 33.0(H) 27.5 - 32.1 pg [facility] Mean Cell Hemoglobin Concentration 35.4 32.0 - 35.7 gm/dL [facility] Platelet 209 145 - 357 x10(3)/mc L [facility] RDW Standard Deviation 40.7 36.0 - 45.0 [facility] RDW coefficient of variation 11.8 11.4 - 13.8 % [facility] Mean Platelet Volume 11.5 7.6 - 12.9 [facility] NRBC% auto 0.0 % [facility] NRBC Absolute 0.000 0.000 - 0.000 x10(3)/ L [facility] Blood specimen (specimen) 04/18/2016 10:35 PM EST 04/18/2016 10:51 PM EST Narrative Resulting Agency Comment Spec In Lab Zenia Mojica MD HEMATOLOGY ORDERABLE S [facility] [place] [place] [address] * CK (04/18/2016 10:35 PM EST) Pathologist [facility] Creatine Kinase 58 0 - 200 unit/L [facility] Blood specimen (specimen) 04/18/2016 10:35 PM EST 04/18/2016 10:51 PM EST Narrative Resulting Agency Comment Spec In Lab Zenia Mojica MD CHEMISTRY ORDERABLES Performing Organization Address [facility] Co de Phone Number [facility] [place] [address] * (ABNORMAL) CRP, acute inflammation (04/18/2016 10:35 PM EST) C-Reactive Protein 6.0(H) <=4.9 mg/L [facility] Blood specimen (specimen) 04/18/2016 10:35 PM EST 04/18/2016 10:51 PM EST Narrative Resulting Agency Comment Spec In Lab Zenia Mojica MD CHEMISTRY ORDERABLES Performing Organization Address [facility] Co de Phone Number [facility] [place] [place] [address] * Sedimentation rate (04/18/2016 10:35 PM EST) [facility] Sedimentation Rate Automated 2 0 - 15 mm/hr [facility] Blood specimen (specimen) 04/18/2016 10:35 PM EST 04/18/2016 10:51 PM EST Narrative Resulting Agency Comment Spec In Lab Zenia Mojica MD HEMATOLOGY ORDERABLE S Performing Organization Address [facility] Co de Phone Number [facility] [place] [address] * APTT (04/18/2016 10:35 PM EST) Partial Thromboplastin Time 27 25 - 35 sec [facility] Comment: The recommended therapeutic range for full dose, unfractionated heparin at [facility] is 80 ? 114 seconds. The use of the anti-Xa (heparin) level rather than the PTT is recommended for monitoring anticoagulation intensity in critically ill patients receiving unfractionated heparin by continuous IV infusion. Blood specimen (specimen) 04/18/2016 10:35 PM EST 04/18/2016 10:51 PM EST Narrative Resulting Agency Comment Spec In Lab Zenia Mojica MD HEMATOLOGY ORDERABLE S Performing Organization Address [facility] de Phone Number [facility] [place] [place] [address] * Prothrombin Time (04/18/2016 10:35 PM EST) Prothrombin Time 13.1 12.0 - 15.0 sec [facility] Comment: An INR <2.0 indicates adequate procoagulant activity for hemostasis in most patients without underlying bleeding disorders, though the INR may not adequately reflect hemostatic capacity in patients with liver disease and synthetic impairment. The recommended target INR range for therapeutic anticoagulation is 2.0 ? 3.0 for most applications, though lower and higher ranges may be appropriate depending on clinical circumstances. International Normalization Ratio 1.0 0.9 - 1.1 [facility] Blood specimen (specimen) 04/18/2016 10:35 PM EST 04/18/2016 10:51 PM EST Narrative Resulting Agency Comment Spec In Lab Zenia Mojica MD HEMATOLOGY ORDERABLE S Performing Organization Address [facility] de Phone Number [facility] [place] [place] [address] * (ABNORMAL) Basic Metabolic Panel (non-fasting) (04/18/2016 10:35 PM EST) Glucose 112 65 - 199 mg/dL [facility] Comment:Diabetes: >=200 mg/d L plus symptoms Blood Urea Nitrogen 8(L) 10 - 20 mg/dL [facility] Creatinine 0.64(L) 0.80 - 1.50 mg/dL [facility] Comment: Please note that the pediatric reference intervals supplied above were not validated at [facility]. Results from pediatric patients should be interpreted in conjunction to the patient's age, height and muscle mass. Sodium 138 135 - 145 mmol/L [facility] Potassium 3.5 3.5 - 5.0 mmol/L [facility] Comment: Please note: ??Patients with WBC >100,000 may have falsely elevated Potassium levels. ??For accurate Potassium quantification in these patients send serum separator tube (gold top) for subsequent determinations. ??Contact the Clinical Chemistry Laboratory if there are any questions. Chloride 100 98 - 107 mmol/L [facility] Carbon Dioxide 27 22 - 31 mmol/L [facility] Anion Gap 11 5 - 15 mmol/L [facility] Calcium 8.7 8.5 - 10.5 mg/dL [facility] Est Glomerular Filtration Rate >60 >=60 [facility] Comment: This estimated GFR (eGFR) value [...] the following links into your internet browser. [email or web address] Blood specimen (specimen) 04/18/2016 10:35 PM EST 04/18/2016 10:51 PM EST Narrative Resulting Agency Comment Spec In Lab Zenia Mojica MD CHEMISTRY ORDERABLES [facility] [place] [place] [address] * Urine Hold (04/18/2016 10:21 PM EST) Hold, Urine Sample in lab. [facility] Urine specimen (specimen) Urine / Unknown 04/18/2016 10:21 PM EST 04/18/2016 10:50 PM EST Zenia Mojica MD URINE ORDERABLES [facility] [place] [address] * Urinalysis with reflex Culture (04/18/2016 10:21 PM EST) Glucose, Urine Dipstick Negative Negative mg/dL [facility] Protein, Urine Dipstick Negative Negative mg/dL [facility] Bilirubin, Urine Dipstick Negative Negative mg/dL [facility] Comment: Clinical correlation required for positive Urine Bilirubin results as false positive may occur with some drugs and drug related products. If a false positive is suspected a serum total bilirubin should be considered if clinically indicated. Urobilinogen, Urine Dipstick Normal Normal mg/dL [facility] pH, Urn (dipstick) 7.0 5.0 - 8.0 [facility] Blood, Urine Dipstick Negative Negative mg/dL [facility] Ketone, Urine Dipstick Negative Negative mg/dL [facility] Nitrite, Urine Dipstick Negative Negative [facility] Leukocytes, Urine Dipstick Negative Negative [facility] Appearance, Urine Dipstick Clear Clear [facility] Specific [place] Urine Automated 1.004 1.002 - 1.030 [facility] Color, Urine Dipstick Straw Yellow [facility] RBC, Urine <1 0 - 3 /HPF [facility] WBC, Urine Not Present 0 - 3 /HPF [facility] Reflex to Culture No [facility] Urine specimen (specimen) 04/18/2016 10:21 PM EST 04/18/2016 10:49 PM EST Narrative Resulting Agency Comment Spec In Lab Zenia Mojica MD URINE ORDERABLES [facility] [place] [place] [address] documented in this encounter Visit Diagnoses Diagnosis Thigh hematoma, right, initial encounter Right thigh pain Pain in limb Accident due to lack of food, initial encounter Hiking on level or elevated terrain Activities involving walking, marching and hiking Leukocytosis, unspecified type Cigarette nicotine dependence with withdrawal Drug withdrawal Swelling of thigh documented in this encounter Administered Medications Inactive Administered Medications - up to 3 most recent administrations Medication Order MAR Action Action Date Dose Rate Site acetaminophen (TYLENOL) tablet 1,000 mg 1,000 mg, Oral, ONCE, 1 dose, On Sat04/19/16 at 0603, Maximum dose of acetaminophen is 4000 mg from all sources in 24 hours., STAT Given 04/19/2016 6:14 AM EST 1,000 mg gabapentin (NEURONTIN) capsule 900 mg 900 mg, Oral, ONCE, 1 dose, On Sat04/19/16 at 0612, STAT Given 04/19/2016 6:14 AM EST 900 mg gadobutrol (GADAVIST) 1 mMol/mL injection 10 mL 10 mL, Intravenous, ONCE PRN, 1 dose, Starting on Sat04/19/16 at 1220, Until Sat04/19/16 at 1220, Per Protocol, Routine Given 04/19/2016 12:20 PM EST 10 mLs iohexol (OMNIPAQUE) 350 mg/mL solution 38,500 mg 38,500 mg (110 mL), Intravenous, ONCE PRN, 1 dose, Starting on Sat04/19/16 at 0100, Until Sat04/19/16 at 0050, Per Protocol, Routine Given 04/19/2016 12:50 AM EST 38,500 mg LORazepam (ATIVAN) injection 1 mg 1 mg, Intravenous, ONCE, 1 dose, On Sat04/19/16 at 1001, Prior to MRI, STAT Given 04/19/2016 10:57 AM EST 1 mg morphine 4 mg/mL carpuject 4 mg 4 mg, Intravenous, ONCE, 1 dose, On Sat04/18/16 at 2301, STAT Given 04/18/2016 11:14 PM EST 4 mg morphine 4 mg/mL carpuject 5 mg 5 mg, Intravenous, ONCE, 1 dose, On Sat04/19/16 at 0248, STAT Given 04/19/2016 2:57 AM EST 5 mg nicotine (NICODERM CQ) 14 mg/24 hr patch 14 mg 14 mg, Transdermal, Administer over 24 Hours, ONCE, 1 dose, On Sat04/19/16 at 0937, STAT Given 04/19/2016 9:49 AM EST 14 mg 10- Arm Upper (Right) documented in this encounter Active and Recently Administered Medications Times are shown in EST. Scheduled Medication Order 04/17/2016 04/18/2016 04/19/2016 acetaminophen (TYLENOL) tablet 1,000 mg (COMPLETED) 1,000 mg, Oral, ONCE, 1 dose, On Judith 04/19/16 at 0603, Maximum dose of acetaminophen is 4000 mg from all sources in 24 hours., STAT 0614 (Given - Provid er: Dorcas Linton RN) gabapentin (NEURONTIN) capsule 900 mg (COMPLETED) 900 mg, Oral, ONCE, 1 dose, On Judith 04/19/16 at 0612, STAT 0614 (Given - Provid er: Dorcas Linton RN) LORazepam (ATIVAN) injection 1 mg (COMPLETED) 1 mg, Intravenous, ONCE, 1 dose, On Judith 04/19/16 at 1001, Prior to MRI, STAT 1057 (Given - Provid er: Keysha Rajput RN) morphine 4 mg/mL carpuject 4 mg (COMPLETED) 4 mg, Intravenous, ONCE, 1 dose, On Sat04/18/16 at 2301, STAT 2314 (Given - Provider: Dorcas Linton RN) morphine 4 mg/mL carpuject 5 mg (COMPLETED) 5 mg, Intravenous, ONCE, 1 dose, On Sat04/19/16 at 0248, STAT 0257 (Given - Provid er: Dorcas Linton RN) nicotine (NICODERM CQ) 14 mg/24 hr patch 14 mg 14 mg, Transdermal, Administer over 24 Hours, ONCE, 1 dose, On Sat04/19/16 at 0937, STAT 0949 (Given - Provid er: Keysha Rajput RN) PRN Medication Order 04/17/2016 04/18/2016 04/19/2016 gadobutrol (GADAVIST) 1 mMol/mL injection 10 mL (COMPLETED) 10 mL, Intravenous, ONCE PRN, 1 dose, Starting on Judith 04/19/16 at 1220, Until Judith 04/19/16 at 1220, Per Protocol, Routine 1220 (Given - Provid er: Minerva Solis) iohexol (OMNIPAQUE) 350 mg/mL solution 38,500 mg (COMPLETED) 38,500 mg (110 mL), Intravenous, ONCE PRN, 1 dose, Starting on Judith 04/19/16 at 0100, Until Judith 04/19/16 at 0050, Per Protocol, Routine 0050 (Given - Provid er: Philip Padron) documented in this encounter
--- OUTSIDE RECORDS SUMMARY | 2023-10-03 01:25 | XMS_ITS | Encounter Summary ---
Author Organization [facility] Address [facility] [place] [address] Care Team Providers Care Retail Manager In Training Name Role Phone Kallie Lopez MD Primary Care Provider [phone] Encounter Details Date Type Department Care Team (Late st Contact Info) Description 12/14/2010 Orders Only XRay at [address] [place] [address] Melisa Judd APRN [address] [place] [address] Social History Tobacco Use Types Packs/Day Years [...] 2:00 PM EDT Office [place] [phone] Carlos Veloz MD [facility] [place] [address] documented as of this encounter Procedures Procedure Name Priority Date/Time Associated Diagnosis Comments MRI/MRA SCAN Routine 12/08/2010 documented in this encounter Results * Scan Doc: MRI/MRA (12/08/2010) Anatomical Region Laterality Modality Other Melisa Judd APRN MEDIA MGR SCAN EX T ORDR/RSLT documented in this encounter Visit Diagnoses Not on filedocumented in this encounter Care Teams Retail Manager In Training Relationship Specialty Start Date End Date Kallie Lopez MD [address] [place] [address] PCP - General 01/17/10 06/29/12 documented as of this encounter
--- OUTSIDE RECORDS SUMMARY | 2023-10-03 01:25 | XMS_ITS | Encounter Summary ---
Author Organization [facility] Address [facility] [place] [address] Care Team Providers Care Body Joiner Name Role Phone Mirian Malcolm MD Primary Care Provider [phone] Encounter Details Date Type Department Care Team (Late st Contact Info) Description 04/05/2010 Orders Only Dermatology at [place] [address] [address] Kimo Fournier MD [address] [facility] [place] [address] Social History Tobacco Use Types Packs/Day Years [...] 2:00 PM EDT Office [place] [address] Carlos Veloz MD [facility] [address] [place] [address] documented as of this encounter Procedures Procedure Name Priority Date/Time Associated Diagnosis Comments SURGICAL PATHOLOGY REPORT Routine 04/05/2010 6:38 PM EST documented in this encounter Results * Surgical Pathology Report (04/05/2010 6:38 PM EST) Surgical Pathology Report [id number] ? Location: [facility] The signing pathologist has (i) examined the relevant preparation(s) for the specimen(s) and (ii) rendered or confirmed the diagnosis(es). . ?Pathology Surgical Pathology Final Report Clinical Information Specimen Submitted: A - (L) forearm, shave Clinical History: Symmetric eczematous patches since March 2009 on arms, inner thighs, flanks, back Clinical Diagnosis: R/O CTCL vs spongiotic dermatitis Report to: Kimo Fournier MD, [address] [facility] Dermatology [place], [place] ??[address] Gross Description Labeled/Fixative: ? L forearm, formalin. Qty/Size/Weight: ?Single shave, 1.5 x 1.1 cm. Tissue Description: ?? Parra skin. Sections/Processing : ??The specimen is inked and serially sectioned. ??(T1) aje/CJL Microscopic Description Slides reviewed, microscopic description not recorded. Diagnosis Skin, (L) forearm, shave biopsy: ?? 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 CR-0 04/07/10 SY 04/07/10 Verified by: ? Pradeep CORTES, PhD, [facility] ?Dermatopathologis t ?(Electronic Signature) The attending pathologist whose signature appears on this report has reviewed all diagnostic slides and has edited the gross and/or microscopic portion of the report in rendering the final pathologic diagnosis. Comment The biopsy shows eosinophilic spongiosis. The findings are not diagnostic of cutaneous T-cell lymphoma. The histologic differential diagnosis includes spongiotic/eczemato us dermatitis and hypersensitivity reaction, as to drug, contactant, or arthropod bite or infestation. ?Sukhdeep Rolon and Asaf have reviewed this case and concur. [facility] 04/05/2010 6:38 PM EST Kimo Fournier MD PATHOLOGY/CYTOLOGY O RDERABLES Performing Organization Address City/State/[facility] Co de Phone Number [facility] documented in this encounter Visit Diagnoses Not on filedocumented in this encounter Care Teams Body Joiner Relationship Specialty Start Date End Date Mirian Malcolm MD [address] [place] [address] PCP - General Family Medicine 08/13/18 documented as of this encounter
--- OUTSIDE RECORDS SUMMARY | 2023-10-03 01:25 | XMS_ITS | Encounter Summary ---
Author Organization [facility] [place] [address] Care Team Providers Care Dredgemaster Name Role Phone Kallie Lopez MD Primary Care Provider [phone] Reason for Referral * Surgical (Routine) - Closed Specialty Diagnoses / Procedures Referred By Giles girard Referred To Contact Orthopaedic Surgery / Orthopaedics Diagnoses Cervical spine pain Shoulder joint pain Gladis Drummond PA [facility] [place] [address] [facility] [address] [place] [address] Referral ID Status Reason Start Date Expiration Date V isits Requested Visits Authorized [id number] Closed Consult, Test & Treat 06/09/2012 12/06/2012 3 3 Reason for Visit * Reason Comments Left Shoulder Pain sp l shoulder scope dos 06/29/09 Encounter Details Date Type Department Care Team (Late st Contact Info) Description 06/09/2012 3:35 PM EDT Office [place] [phone] Gladis Drummond PA [facility] [place] [address] Cervical spine pain (Primary Dx); Shoulder joint pain Discharge Disposition: Home Social [...] Sign Reading Time Taken Comments Blood Pressure 173/108 06/09/2012 4:00 PM EDT 136 /94 MANUAL Pulse 64 06/09/2012 4:00 PM EDT Temperature - - Respiratory Rate - - Oxygen Saturation - - Inhaled Oxygen Concentration - - Weight 121.6 kg (268 lb) 06/09/2012 4:00 PM EDT Height 185.4 cm (6' 1) 06/09/2012 4:00 PM EDT Body Mass Index 35.36 06/09/2012 4:00 PM EDT documented in this encounter Progress Notes * Gladis Drummond PA - 06/10/2012 8:49 AM EDT PATIENT NAME: Porsha Park AGE: 42 y.o. MR#: [id number] DATE OF VISIT: 06/09/2012 DATE OF INJURY/ONSET: [address] surgery [address] Dr[address] Burnett June 29, 2009 Left shoulder extensive debridement; evacuation of labral cyst; bursectomy/acromioplasty; distal clavicle resection STAFF: Dr. Anish Burnett CHIEF COMPLAINT: Progressively worse left shoulder discomfort HISTORY OF PRESENT ILLNESS Mr. Park a 42 y.o. year old male comes into clinic today for evaluation of left shoulder pain. The patient had a previous surgery by Dr. Burnett on June 29, 2009 and hand which included a left shoulder extensive debridement, evacuation of labral cyst, bursectomy/acromioplasty, distal clavicle resection. This was a workers compensation claim at this time. Patient has had apermanent impairment rating regarding this claim. At today's visit the patient states that his leftshoulder feels the same as it did before the surgery. Patient states that his shoulder strength is decreased. The patient describes discomfort in the middle of the shoulder. He has the most difficulty with overhead activity. He describes the pain as achy and pinching. Patient states the intensity of discomfort will vary however it will become 7/10. Patient states that his discomfort has been becoming progressively worse over the last 6 months. The patient does not have any significant difficulty with sleep. The patient describes a radicular pattern down his arm into his left thumb. Patient states that the thumb pad feels numb and achy. Patient states that stretching his trapezius musculature helps alleviate the discomfort. The patient has not had a recent cortisone injection or a course of physical therapy. The patient has a switch to a less strenuous job in September 2011. PHYSICAL EXAM: Mr. Xavier roberts 42 y.o. is alert and oriented. He appears in no acute discomfort and is resting comfortably in a chair in the exam room. Inspection: There is no obvious deformity, discolorations, or effusion of the injured extremity. Nomuscle atrophy is noted. Palpation: Patient had mild tenderness to palpation of the posterior aspect of the glenohumeral joint. Patient did not have any tenderness to palpation over the anterior aspect of the glenohumeral joint, the insertion of the rotator cuff, or the acromioclavicular joint. Forward Flexion: 180?? Abduction: 180?? External Rotation: 20?? Internal Rotation: T5 Strength: Patient's strength was 5/5 with forward flexion, abduction, internal rotation. The patient's strength was 4+/5 with external rotation and empty can. Orthopedic testing: The patient had extremely positive testing on Lisman's and speeds. The patienthad positive testing on Neer one, Moralez Cody, and painful arc of motion. Patient had negative testing on belly press and horizontal adduction Neurological: Patient had decreased sensation in the thumb of the left hand. Patient sensation was intact in the median as well as ulnar nerve distributions. The patient's radial pulses are 2+ and symmetric Patient had a significantly positive Spurling examination with radicular symptoms going down to [facility] RADIOLOGICAL STUDIES: Radiologic studies of the patient's left shoulder shows by radiology report: Findings No fracture or dislocation. The glenohumeral joint space is maintained. Postsurgical changes of distal clavicle excision. The acromiohumeral interval is well maintained. No periarticular soft tissue calcifications observed. Impression No acute osseous injury or change. ASSESSMENT: Question of cervical spine pathology; bicipital pathology; possible SLAP PLAN: I spent approximately 15 minutes of this 20 minute visit discussing Mr. Park's radiologic findings and physical exam findings. The patient had a significantly positive Spurling examination. Thepatient was referred to the spine center for further evaluation of the cervical spine. The patient also had positive orthopedic testing in regards to his biceps tendon and and the biceps anchor at the superior labrum. It seems most appropriate this time to order an MRI examination to further evaluate the patient's bicipital tendon as well as rotator cuff. I discussed with the patient in regards to his workers comp claim is difficult to state whether this is a new injury or an exacerbation of his previous injury. The patient reached maximal medical improvement as well as received a permanent impairment rating. I have asked Catherine Humphries to contact the patient regarding his workers comp.The patient understands to contact me if he has any other questions or concerns. I will plan to seethe patient back after his MRI examination of his left shoulder as well as after his appointment with the spine center. documented in this encounter Plan of Treatment Upcoming Encounters Date Type Department Care Team (Late st Contact Info) Description 10/03/2023 2:00 PM EDT Office [place] [address] Carlos Veloz MD [facility] [place] [address] Scheduled Referrals Name Type Priority Associated Diagnoses Orde r Schedule Referral to Spine Center Outpatient Referral Routine Cervical spine pain Shoulder joint pain Ordered: 06/09/2012 documented as of this encounter Results * MRI shoulder WO [...] documented in this encounter Visit Diagnoses Diagnosis Cervical spine pain- Primary Cervicalgia Shoulder joint pain Pain in joint, shoulder region Shoulder joint pain Pain in joint, shoulder region documented in this encounter Care Teams Dredgemaster Relationship Specialty Start Date End Date Kallie Lopez MD [address] [place] [address] PCP - General 01/17/10 06/29/12 documented as of this encounter
--- OUTSIDE RECORDS SUMMARY | 2023-10-03 01:25 | XMS_ITS | Encounter Summary ---
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 He has notified and they will investigate and determine.. I explained to him the possibility that he may be denied and that he has a right to appeal. He agrees to call with further questions. documented in this encounter Plan of Treatment Upcoming Encounters Date Type Department Care Team (Late st Contact Info) Description 10/03/2023 2:00 PM EDT Office [place] [address] Carlos Veloz MD [facility] [place] [address] documented as of this encounter Visit Diagnoses Not on filedocumented in this encounter Care Teams Boat Fueler Relationship Specialty Start Date End Date Kallie Lopez MD [address] [place] [address] PCP - General 01/17/10 06/29/12 documented as of this encounter
--- OUTSIDE RECORDS SUMMARY | 2023-10-03 01:25 | XMS_ITS | Encounter Summary ---
Author Organization [facility] Address [facility] [place] [address] Care Team Providers Care Pony Edger Name Role Phone Unavailable Primary Care Provider Unavailabl e Encounter Details Date Type Department Care Team (Latest Contact Info) Description 04/18/2016 - 04/18/2016 8:59 PM EST Hospital En[place] [address] Carlos Veloz MD [facility] [place] [address] Pain Discharge Disposition: Home Social History Tobacco Use [...] tablet Take 1 tablet by mouth daily. aspirin 81 mg EC tablet Take 81 mg by mouth daily. 08/15/2018 ibuprofen (ADVIL;MOTRIN) 200 mg tablet Take 800 mg by mouth every 6 hours as needed. 02/20/2018 Yizh-Baexjp-UadguzRcge-D3 -C-Mn (GLUCOSAMINE-CHONDROITIN- VIT D3) 500-400-667 mg-mg-unit Cap Take 1 tablet by mouth daily. 06/27/2016 documented as of this encounter Plan of Treatment Upcoming Encounters Date Type Department Care Team (Late st Contact Info) Description 10/03/2023 2:00 PM EDT Office [place] [address] Carlos Veloz MD [facility] [place] [address] documented as of this encounter Procedures Procedure Name Priority Date/Time Associated Diagnosis Comments FILM LIBRARY STORAGE ONLY CT PELVIS Routine 04/18/2016 12:00 AM EST Pain documented in this encounter Results * Film Library- Storage Only CT Pelvis (04/18/2016 12:00 AM EST) Narrative [facility] - 04/18/2016 6:14 PM EST This exam is for storage only and is auto-finalizing. Carlos Veloz MD IMG FILM LIBRARY ORD ERABLES [place], [place] documented in this encounter Visit Diagnoses Diagnosis Pain Generalized pain documented in this encounter
--- NOTE | 2023-10-03 10:27 | DI.RAD_ITS ---
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 TECHNIQUE: 2D digital imaging was performed. COMPARISON: CR XR FOOT LT COMPLETE from 08/22/2023 FINDINGS: 3 views No evidence of acute fracture nor diastasis Lisfranc joint. Previously described abnormal lucency in the base of the 3rd metatarsal is again noted. Also again n oted is an osteo chondroma off the lateral aspect of the diaphysis of the 3rd metatarsal bone. No ot her osteochondromas noted. Small inferior calcaneal spur again noted as is an enthesophyte on the posterior calcaneus. Pes plan us also again noted. 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 On the oblique view this does not exhibit a continuous osseous bar bet ween the 3rd and 4th metatarsals at this level but there is a finding on the corresponding medial cor ady of the 4th metatarsal implying that this may be a pseudoarticulation between these 2 bones (3rd a nd 4th metatarsals) DATA REPOSITORY: RADIATION DOSE DELIVERED:
== END ==
PROVIDERS: PCP Family Medicine; Visit Provider Podiatrist
DX: M14.60 Charcot's joint, unspecified site (principal); M79.671 Pain in right foot; S92.254A Nondisplaced fracture of navicular [scaphoid] of right foot, initial encounter for closed fracture
CPT/HCPCS: 73630

== ENCOUNTER 2023-10-21 02:33 | Outpatient (CLI) | payer BC, SELFPAY ==
--- OUTSIDE RECORDS SUMMARY | 2023-10-21 02:40 | XMS_ITS | Data Portability ---
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 Problem Code Type: ICD-10; Not Available [facility] 4 05:36:00 Candidiasis of skin Completed 202008/10/2021 Problem Code: B37.2; Problem Code Type: ICD-10; Not Available [facility] 3 05:08:44 Pain in finger Completed 202008/10/2021 Problem Code: M79.646; Problem Code Type: ICD-10; Not Available [facility] 3 05:08:44 Prediabetes Completed 201611/21/2022 06/26/2021 - [...] for follow-up. Did suggest him seeing the certified lactation educator he would like to try these other things first. Problem Code: R73.03; Problem Code Type: ICD-10; Not Available [facility] 3 05:08:44 Blood glucose outside reference range Completed 201611/21/2022 08/23/2016 - Comments only - Mirian Lizama MD - HgA1Cs have all been below 6 and he is unsure if he had any high fasting glucose levels. We will continue to watch this but it is unlikely ot be the cause of his neuropathy. Problem Code: R73.09; Problem Code Type: ICD-10; Not Available [facility] 3 05:08:44 Problem related to social environment Completed 201803/26/2019 Problem Code: Z60.8; Problem Code Type: ICD-10; Not Available [facility] 3 05:08:44 Superficial injury of finger Completed 202008/10/2021 Problem Code: S60.943A; Problem Code Type: ICD-10; Not Available [facility] 3 05:08:45 Diabetic peripheral neuropathy Active 2023 PONCE HUGHES MD [address], [place], [address] , [facility] 4 16:24:56 Hypertriglycer idemia Active 2016 Lovely anaya, [facility] 4 13:16:56 Pain of right ankle joint Active [address], [place], [address] , [facility] 4 12:33:41 Type 2 diabetes mellitus Active [address], [place], [address] , [facility] 4 12:55:49 Pain in right foot Active [address], [place], [address] , [facility] 4 15:51:52 Pain of right calf Active [address], [place], [address] , [facility] 4 15:52:22 Hypertensive disorder Active [address], [place], [address] , [facility] 4 16:54:29 Charcot's arthropathy Active [address], [place], [address] , [facility] 4 16:28:09 Charcot's arthropathy Active [address], [place], [address] , [facility] 4 10:26:51 Hyperlipidemia Active [address], [place], [address] , [place] [facility] 11:17:15 Problem Notes None recorded. Procedures Surgical History Date Name Laterality Status Provider Name and Address Organization Details Recorded Time 2 Colonoscopy completed SHAYNA ALVARENGA, [facility] 03/11/2023 13:08:41 Imaging Results Imaging Date Name Status LastModified by Organiz ation Details LastModified Time 07/05/2023 US, duplex, venous, lower extremity, unilateral completed Information not available 07/05/2023 17:37:25 07/05/2023 US, duplex, venous, lower extremity, unilateral completed [email or web address] [address] [place], [address] 07/06/2023 16:00:54 07/05/2023 XR, foot, 3 or more view completed [email or web address] [address] [place], [address] 07/06/2023 16:00:48 07/05/2023 XR, foot, 3 or more view completed [facility] [address], [place], [address], 07/05/2023 17:37:26 07/05/2023 vrad report completed [address] [place], [address] 07/05/2023 19:15:52 07/05/2023 vrad report completed [address] [place], [address] 07/05/2023 19:15:52 07/05/2023 US, duplex, venous, lower extremity, unilateral completed [address] [place], [address], 07/05/2023 17:37:26 07/12/2023 x-ray imaging report completed [facility] [address] [place], [address] 07/12/2023 14:55:32 08/01/2023 x-ray imaging report completed [address] [place], [address] 08/02/2023 11:43:53 08/01/2023 x-ray imaging report completed [address] [place], [address] 08/02/2023 11:43:54 08/22/2023 x-ray imaging report completed [address] [place], [address] 08/23/2023 07:22:09 08/22/2023 x-ray imaging report completed [address] [place], [address] 08/23/2023 07:22:09 10/03/2023 x-ray imaging report completed [address] [place], [address] 10/04/2023 07:30:16 10/03/2023 x-ray imaging report completed [address] [place], [address] 10/04/2023 07:30:17 Procedure Notes None recorded. Medical Equipment None Reported. Allergies Allergen ID Allergen Name Allergen Category Reaction Reaction Severity Criticality Documentation Date Start Date Code Code System Note Provider Name and Address Organization Details Recorded Time 90607 Augmentin medicatio n rash mild low 07/05/2023 45061 2 RxNorm Camila Abdi [facility] 15:31:33 Medications Name Sig Start Date Stop [...] Available Not Available gabapentin 300 mg capsule Take 3 capsule three times a days active Not Available Not Available No t [...] Updated DateTime 4 179.07 cm 36.6 kg/m2 463405. 42 g 97.5 [degF] 98 % 98 % 64 /min 154 mm[Hg] 92 mm[Hg] GONZÁLEZ DIXON [place] - [facility]. 4 15:53:14 Date Recorded Body height Body mass index (BMI) Body weight Body temperature Oxygen saturation Oxygen saturation in Arterial blood by Pulse oximetry Heart rate Systolic blood pressure Diastolic blood pressure Provider Name and Address Organization Details Last Updated DateTime 4 179.07 cm 37.7 kg/m2 808483. 29 g 97.2 [degF] 94 % 94 % 18 /min 130 mm[Hg] 82 mm[Hg] ENRICO CASTREJON RN [facility] 4 12:18:38 Date Recorded Body height Body mass index (BMI) Body weight Body temperature Oxygen saturation Oxygen saturation in Arterial blood by Pulse oximetry Heart rate Respiratory rate Heart rate Systolic blood pressure Diastolic blood pressure Systolic blood pressure Diastolic blood pressure Provider Name and Address Organization Details Last Updated DateTime 4 179.07 cm 37.5 kg/m2 438712. 98 g 97.7 [degF] 96 % 96 % 80 /min 18 /min 55 /min 191 mm[Hg] 118 mm[Hg] 202 mm[Hg] 165 mm[Hg] Camila Abdi [facility] 4 15:30:59 Date Recorded Body height Body mass index (BMI) Body weight Body temperature Oxygen saturation Oxygen saturation in Arterial blood by Pulse oximetry Heart rate Respiratory rate Systolic blood pressure Diastolic blood pressure Provider Name and Address Organization Details Last Updated DateTime 4 179.07 cm 37.6 kg/m2 858334. 57 g 97.2 [degF] 95 % 95 % 64 /min 18 /min 132 mm[Hg] 80 mm[Hg] ENRICO CASTREJON RN [facility] 4 09:45:04 Social History Question Answer Notes LastModified by Organizat ion Details LastModified Time Tobacco Smoking Status Current Every Day Smoker SHAYNA ALVARENGA, [facility] 03/12/2023 15:54:45 Would You Say [...] Recorded Time Tdap 02/28/2018 completed Not Available [facility] 05:37:21 Td(adult) unspecified formulation 11/13/2007 completed Not Available [facility] 01/04/2023 05:37:21 zoster recombinant 06/18/[address] [facility] 01/04/2023 05:37:21 zoster recombinant 08/10/[address] [facility] 01/04/2023 05:37:21 COVID-19, mRNA, LNP-S, PF, 100 mcg/0.5mL dose or 50 mcg/0.25mL dose 05/24/2020 completed Not Available [facility] 01/04/2023 05:37:21 COVID-19, mRNA, LNP-S, PF, 100 mcg/0.5mL dose or 50 mcg/0.25mL dose 06/21/2020 completed Not Available [facility] 01/04/2023 05:37:21 pneumococcal polysaccharide PPV23 06/12/2013 completed Not Available [facility] 2022 05:37:22 influenza, unspecified formulation 11/29/2014 completed Not Available [facility] 01/04/2023 05:37:22 Past Encounters Encounter ID Performer Location Encounter Start Date Encounter Closed Date Diagnosis/Indication Diagnosis SNOMED-CT Code [id number] PONCE HUGHES MD [address] [address] 03/12/2023 15:35:15 03/12/2023 16:50:36 Type 2 diabetes mellitus without complication 211506197 Essential hypertension 57069722 Alcohol abuse 87568866 Diabetic p eripheral neuropathy 222788274 [id number] MIRIAN LIZAMA MD [address] [address] 06/14/2023 11:50:42 06/14/2023 12:56:52 Pain of right ankle joint 670327667293506 06 Type 2 sylwia betes mellitus 49934401 Alcohol abuse 07818972 Nicotine dependence 5629 4008 Essential hypertension 53961182 [id number] [address],[facility] [address] [place] [address] 07/05/2023 11:34:50 07/05/2023 15:59:02 Pain in right foot 930654549353043 Pain of right calf 96554 8823522036 3 Hypertensive disorder 38 802840 Charcot's arthropathy 35 7085295 [id number] MIRIAN LIZAMA MD [address] [address] 07/19/2023 09:33:56 07/19/2023 10:29:02 Hyperlipidemia 51142342 Charcot's arthropathy 35 5594304 Anxiety 26431668 Health Concerns Section Related Observation LastModified by Organization Detai ls LastModified Time None Recorded Concern Status LastModified by Organization Details LastModified Time None Recorded Advance Directives Directive None Recorded Payers Encounter Date Sequence Insurance Name Policy Number Policy Hernandez Covered Member ID Hernandez Member ID Guarantor Name 03/12/2023 1 [place] Porsha Hill Rice [id number] Porsha D Rice 06/14/2023 1 [place] Porsha D Rice [id number] Porsha D Rice 07/05/2023 1 [place] [place] [facility] [place] Porsha D Rice [id number] Porsha D Rice 07/19/2023 1 [place] [facility] [place] Porsha D Rice [id number] P[place]ha Park Notes Date Note Type Note [...] well. PONCE HUGHES MD [address], [place], [address], [facility]. 03/16/2023 12:28:36 06/14/2023 text/html HPI Notes: Dyana haley is a 53-year-old gentleman comes in today for follow-up on his diabetes and blood pressure. He has been seeing a clinical programmer who is working on his diet. We [...] pounds. MIRIAN LIZAMA MD [address], [place], [address], [facility]. 06/14/2023 15:34:50 07/05/2023 text/html HPI Notes: Sarai [...] foot. CHRISTINE HARRISON PA-C [address], [place], [address], [facility]. 07/06/2023 16:28:29 07/19/2023 text/html HPI Notes: Sarai miranda is a 53 year old male who comes in today to discuss his recent appointment to the motor vehicle technician.. He was told he had Charcots foot [...] causing. MIRIAN LIZAMA MD [address], [place], [address], [facility]. 07/19/2023 11:18:46
--- OUTSIDE RECORDS SUMMARY | 2023-10-21 02:41 | XMS_ITS | Encounter Summary ---
[place] [address] Care Team Providers Care Assisted Living Coordinator Name Role Phone Mirian Malcolm MD Primary Care Provider [phone] Reason for Referral * Consultation (Routine) - Closed Specialty Diagnoses / Procedures Referred By Giles girard Referred To Contact Orthopaedics Diagnoses Charcot's arthropathy Mirian Malcolm MD [address] [place] [address] [facility] [place] [facility] [address] [place] [address] Referral ID Status Reason Start Date Expiration Date V isits Requested Visits Authorized [id number] Closed Consult, Test & Treat PCP Updated and/or Approved 07/30/2023 07/29/2024 6 6 Encounter Details Date Type Department Care Team (Latest Contact Info) Description 07/30/2023 Transcribe Orders eDH Incoming Referrals [phone] Mirian Malcolm MD [address] [place], [place] [id number] Charcot's arthropathy Social History Tobacco Use Types [...] as of this encounter Plan of Treatment Scheduled Referrals Name Type Priority Associated Diagnoses Orde r Schedule Referral to Orthopaedics Outpatient Referral Urgent Charcot's arthropathy Ordered: 07/30/2023 documented as of this encounter Visit Diagnoses Diagnosis Charcot's arthropathy Tabes dorsalis documented in this encounter Care Teams Assisted Living Coordinator Relationship Specialty Start Date End Date Mirian Malcolm MD [address] [place] [address] PCP - General Family Medicine 08/13/18 documented as of this encounter
--- OUTSIDE RECORDS SUMMARY | 2023-10-21 02:41 | XMS_ITS | Encounter Summary ---
Author Organization [facility]ly [facility] Address [facility] [place] [address] Care Team Providers Care Pump Erector Helper Name Role Phone Mirian Malcolm MD Primary Care Provider [phone] Encounter Details Date Type Department Care Team (Latest Contact Info) Description 08/21/2018 Orders [place] [address] Karen Alfred PA [facility] [place] [address] Closed displaced intertrochanteric fracture of right femur, [...] as of this encounter Plan of Treatment Not on file documented as of this encounter Results * [...] the number below. ? Electronically signed by: DAGO Morocho [facility] ([phone]), at 08/27/2018 2:46 PM Narrative 08/27/2018 2:46 PM EDT EXAMINATION: XR [...] contact the number below. Electronically signed by: DAGO Morocho [facility]([phone]), at 08/27/2018 2:46 PM Carlos Veloz MD IMG DX ORDERABLES documented in this encounter Visit Diagnoses Diagnosis Closed displaced intertrochanteric fracture of right femur, initial encounter Closed displaced intertrochanteric fracture of right femur, initial encounter documented in this encounter Care Teams Pump Erector Helper Relationship Specialty Start Date End Date Mirian Malcolm MD [address] [place] [address] PCP - General Family Medicine 08/13/18 documented as of this encounter
--- OUTSIDE RECORDS SUMMARY | 2023-10-21 02:41 | XMS_ITS | Encounter Summary ---
Author Organization [facility] Address [address] [place] [address] Care Team Providers Care Funding Specialist Name Role Phone Mirian Malcolm MD Primary Care Provider [phone] Reason for Referral * (Routine/Next Available) - Receiving Office to Obtain Authorization Specialty Diagnoses / Procedures Referred By Contac t Referred To Contact Procedures XR OUTSIDE IMAGES RIGHT LOWER EXTREMITY Imaging, External Referral ID Status Reason Start Date Expiration Date Visits Requested Visits Authorized [id number] Receiving Office to Obtain Authorization 08/13/2023 1 1 Reason for Visit * (Routine/Next Available) - Receiving Office to Obtain Authorization Specialty Diagnoses / Procedures Referred By Contac t Referred To Contact Procedures XR OUTSIDE IMAGES RIGHT LOWER EXTREMITY Imaging, External Referral ID Status Reason Start Date Expiration Date Visits Requested Visits Authorized [id number] Receiving Office to Obtain Authorization 08/13/2023 1 1 Encounter Details Date Type Department Care Team (Latest Contact Info) Description 07/05/2023 - 07/05/2023 23:59 EDT Hospital Encounter [facility] [place] Discharge Disposition: Home or [...] documented in this encounter Plan of Treatment Not on file documented as of this encounter Procedures Procedure [...] on filedocumented in this encounter Care Teams Funding Specialist Relationship Specialty Start Date End Date Mirian Malcolm MD [address] [place] [address] PCP - General Family Medicine - Primary Care 09/25/20 documented as of this encounter
--- OUTSIDE RECORDS SUMMARY | 2023-10-21 02:41 | XMS_ITS | Encounter Summary ---
Author Organization [facility] Address [facility] [place] [address] Care Team Providers Care Clay Stain Mixer Name Role Phone Mirian Malcolm MD Primary Care Provider [phone] Reason for Referral * Physical Therapy (Routine) - Specialty Diagnoses / Procedures Referred By Contblake t Referred To Contact Diagnoses Closed displaced intertrochanteric fracture of right femur, initial encounter Karen Alfred PA [facility] [place] [address] Referral ID Status Reason Start Date Expiration Date V isits Requested Visits Authorized [id number] Evaluate and Treat 02/27/2019 08/26/2019 1 1 Reason for Visit * Reason Comments Follow-up Left IT fx s/p CMN (Magdiel) Encounter Details Date Type Department Care Team (Latest Contact Info) Description 02/27/2019 10:00 AM EST Office [place] [address] Karen Alfred PA [facility] [place] [address] Closed displaced intertrochanteric fracture of right femur, [...] NAME: Porsha Park AGE: 49 y.o. MR#: [id number] DATE OF VISIT: 02/27/2019 CHIEF COMPLAINT: 7 [...] of Porsha Park's pain. . Clinically Porsha lElis good left hip ROM as well as [...] documented in this encounter Plan of Treatment Scheduled Referrals Name Type Priority Associated Diagnoses Orde r Schedule Referral to Physical Therapy Outpatient Referral Routine Closed displaced intertrochanteric fracture of right femur, initial encounter Ordered: 02/27/2019 documented as of this encounter Visit Diagnoses Diagnosis Closed displaced intertrochanteric fracture of right femur, initial encounter documented in this encounter Care Teams Clay Stain Mixer Relationship Specialty Start Date End Date Mirian Malcolm MD [address] [place] [address] PCP - General Family Medicine 08/13/18 documented as of this encounter
--- OUTSIDE RECORDS SUMMARY | 2023-10-21 02:41 | XMS_ITS | Encounter Summary ---
Author Organization [facility] Address [facility] [address] [place] [address] Care Team Providers Care Hot Mill Tin Roller Name Role Phone Mirian Malcolm MD Primary Care Provider Reason for Visit * Reason Comments Wound Check L Thigh s/p IMN left femur 08/13/18 Encounter Details Date Type Department Care Team (Latest Contact Info) Description 08/18/2018 11:45 AM EDT Office [place] [phone] Karen Alfred PA [facility] [place] [address] Closed displaced intertrochanteric fracture of right femur, [...] on file documented as of this encounter Visit Diagnoses Diagnosis Closed displaced intertrochanteric fracture of right femur, initial encounter documented in this encounter Care Teams Hot Mill Tin Roller Relationship Specialty Start Date End Date Mirian Malcolm MD [address] [place] [address] PCP - General Family Medicine 08/13/18 documented as of this encounter
--- OUTSIDE RECORDS SUMMARY | 2023-10-21 02:41 | XMS_ITS | Encounter Summary ---
Author Organization [facility] Address [address] [place] [address] Care Team Providers Care Digital Marketing Analyst Name Role Phone Mirian Malcolm MD Primary Care Provider [phone] Reason for Referral * (Routine/Next Available) - Receiving Office to Obtain Authorization Specialty Diagnoses / Procedures Referred By Contac t Referred To Contact Procedures XR OUTSIDE IMAGES LEFT LOWER EXTREMITY Imaging, External Referral ID Status Reason Start Date Expiration Date Visits Requested Visits Authorized [id number] Receiving Office to Obtain Authorization 08/13/2023 1 1 Reason for Visit * (Routine/Next Available) - Receiving Office to Obtain Authorization Specialty Diagnoses / Procedures Referred By Contac t Referred To Contact Procedures XR OUTSIDE IMAGES LEFT LOWER EXTREMITY Imaging, External Referral ID Status Reason Start Date Expiration Date Visits Requested Visits Authorized [id number] Receiving Office to Obtain Authorization 08/13/2023 1 1 Encounter Details Date Type Department Care Team (Latest Contact Info) Description 07/12/2023 - 07/12/2023 23:59 EDT Hospital Encounter [facility] [place] Discharge Disposition: Home [...] on filedocumented in this encounter Care Teams Digital Marketing Analyst Relationship Specialty Start Date End Date Mirian Malcolm MD [address] [place] [address] PCP - General Family Medicine - Primary Care 09/25/20 documented as of this encounter
--- OUTSIDE RECORDS SUMMARY | 2023-10-21 02:41 | XMS_ITS | Encounter Summary ---
Author Organization [facility] Address [facility] [place] [address] Care Team Providers Care Preschool Assistant Director Name Role Phone Mirian Malcolm MD Primary Care Provider [phone] Encounter Details Date Type Department Care Team (Latest Contact Info) Description 10/06/2018 2:26 PM EDT - 10/06/2018 11:59 PM EDT Hospital Encounter XRay at [address] [place] [address] Ester Almendarez MD [facility] [place] [address] Closed displaced intertrochanteric fracture of right femur, [...] ? Electronically signed by: Kimmy Mayers MD, [facility] ([phone]), at 10/06/2018 3:56 PM Narrative 10/06/2018 3:56 [...] below. Electronically signed by: Kimmy Mayers MD, [facility]([phone]), at 10/06/2018 3:56 PM Ester Almendarez MD IMG DX ORDERABLES documented in this encounter Visit Diagnoses Diagnosis Closed displaced intertrochanteric fracture of right femur, initial encounter documented in this encounter Care Teams Preschool Assistant Director Relationship Specialty Start Date End Date Mirian Malcolm MD [address] [place] [address] PCP - General Family Medicine 08/13/18 documented as of this encounter
--- OUTSIDE RECORDS SUMMARY | 2023-10-21 02:41 | XMS_ITS | Encounter Summary ---
Author Organization [facility]ly [facility] Address [facility] [place] [address] Care Team Providers Care Overhauler Helper Name Role Phone Mirian Malcolm MD Primary Care Provider [phone] Encounter Details Date Type Department Care Team (Late st Contact Info) Description 08/18/2018 Notes [place] [address] Karen Alfred PA [facility] [place] [address] Social History Tobacco Use Types Packs/Day Years [...] on filedocumented in this encounter Care Teams Overhauler Helper Relationship Specialty Start Date End Date Mirian Malcolm MD [address] [place] [address] PCP - General Family Medicine 08/13/18 documented as of this encounter
--- OUTSIDE RECORDS SUMMARY | 2023-10-21 02:41 | XMS_ITS | Encounter Summary ---
Author Organization [facility] [place] [address] Care Team Providers Care Clothing Presser Name Role Phone Mirian Malcolm MD Primary Care Provider [phone] Reason for Visit * Reason Comments Back Pain * Consultation (Routine) - Closed Specialty Diagnoses / Procedures Referred By Contac t Referred To Contact [facility] Diagnoses Chronic left SI joint pain Spine - SI joint pain/ no imaging review w/ anatoliy Karen Alfred PA [facility] [place] [address] [facility] [place] [address] Referral ID Status Reason Start Date Expiration Date V isits Requested Visits Authorized [id number] Closed Consult, Test & Treat 10/06/2018 10/06/2019 1 1 Encounter Details Date Type Department Care Team (Latest Contact Info) Description 10/24/2018 10:20 AM EDT Office Visit [place] [address] Anatoliy Lutz PA [facility] [place] [address] Spondylolysis of lumbosacral region; Spondylolisthesis [...] symptoms I recommend continuing physical therapy and day care supervisor as tolerated. I did advise him that [...] spondylolisthesis documented in this encounter Care Teams Clothing Presser Relationship Specialty Start Date End Date Mirian Malcolm MD [address] [place] [address] PCP - General Family Medicine 08/13/18 documented as of this encounter
--- OUTSIDE RECORDS SUMMARY | 2023-10-21 02:41 | XMS_ITS | Referral Summary ---
Author Organization [facility] Address [address] [place] [address] Care Team Providers Care Gas Maker Helper Name Role Phone Mirian Malcolm MD Primary Care Provider [phone] Encounters Date Type Department Care Team Description 10/10/2023 Orders Only [facility] - [address] [place], [place] [id number] Philip Mckeon MD Charcot's joint of foot, right (Primary Dx); Charcot's joint of left foot 08/01/2023 0:05 EDT - 08/01/2023 23:59 EDT Hospital Encounter [facility] Secondary Reads [place] Discharge Disposition: Home or Self Care 08/01/2023 - 08/01/2023 0:04 EDT Hospital Encounter [facility] Secondary [place] Discharge Disposition: Home or Self Care from Last 3 Months Social History Tobacco Use Types Packs/Day Years Used Date Smoking Tobacco: Never Assessed Sex and Gender Information Value Date Recorded Sex Assigned at Not on file Gender Identity Not on file Sexual Orientation Not on file Plan of Treatment Not on file Procedures Procedure Name Priority Date/Time Associated Diagnosis Comments XR OUTSIDE IMAGES RIGHT LOWER EXTREMITY Routine 08/01/2023 13:20 EDT XR OUTSIDE IMAGES LEFT LOWER EXTREMITY Routine 08/01/2023 13:20 EDT from Last 3 Months Results * [...] DERABLES from Last 3 Months Care Teams Gas Maker Helper Relationship Specialty Start Date [place] [address] PCP - General Family Medicine - Primary Care 09/25/20
--- OUTSIDE RECORDS SUMMARY | 2023-10-21 02:41 | XMS_ITS | Encounter Summary ---
Author Organization [facility] Address [place] [address] Care Team Providers Care Director Of District Office Name Role Phone Mirian Malcolm MD Primary Care Provider [phone] Encounter Details Date Type Department Care Team (Late st Contact Info) Description 07/05/2023 Ancillary Procedure [place] [address] Carlos Veloz MD [facility] DR [place] [address] Social History Tobacco Use Types Packs/Day Years [...] Veloz MD IMG FILM LIBRARY ORD ERABLES [place] documented in this encounter Visit Diagnoses Not on filedocumented in this encounter Care Teams Director Of District Office Relationship Specialty Start Date End Date Mirian Malcolm MD [address] [place] [address] PCP - General Family Medicine 08/13/18 documented as of this encounter
--- OUTSIDE RECORDS SUMMARY | 2023-10-21 02:41 | XMS_ITS | Encounter Summary ---
Author Organization Formerly [facility] Address [facility] [place] [address] Care Team Providers Care Sales Training Coordinator Name Role Phone Mirian Malcolm MD Primary Care Provider [phone] Reason for Visit * Reason Onset Date Comments Bumped Appointment 02/02/2019 Encounter Details Date Type Department Care Team (Late st Contact Info) Description 02/02/2019 Telephone [place] [phone] Karen Alfred PA [facility] [place] [address] Bumped Appointment Social History Tobacco Use Types [...] on filedocumented in this encounter Care Teams Sales Training Coordinator Relationship Specialty Start Date End Date Mirian Malcolm MD [address] [place] [address] PCP - General Family Medicine 08/13/18 documented as of this encounter
--- OUTSIDE RECORDS SUMMARY | 2023-10-21 02:41 | XMS_ITS | Encounter Summary ---
Author Organization [facility] Address [facility] [place] [address] Care Team Providers Care Coronary Care Unit Nurse Name Role Phone Mirian Malcolm MD Primary Care Provider [phone] Reason for Referral * Physical Therapy (Routine) - Specialty Diagnoses / Procedures Referred By Contblake t Referred To Contact Diagnoses Closed displaced intertrochanteric fracture of right femur, initial encounter Karen Alfred PA [facility] ORTHOPAEDIC [place] [address] Referral ID Status Reason Start Date Expiration Date V isits Requested Visits Authorized [id number] Evaluate and Treat 12/08/2018 06/06/2019 1 1 Reason for Visit * Reason Comments Follow Up Fracture L IT FX s/p CMN 08/13 ( MAGDIEL) DOI 08/13/18 Encounter Details Date Type Department Care Team (Latest Contact Info) Description 12/08/2018 3:30 PM EDT Office [place] [address] Karen Alfred PA [facility] ORTHOPAEDIC [place] [address] Closed displaced intertrochanteric fracture of right femur, [...] NAME: Porsha Park AGE: 48 y.o. MR#: [id number] DATE OF VISIT: 12/08/2018 CHIEF COMPLAINT: 4 [...] the number below. ? Electronically signed by: CUCO EWING [facility] ([phone]), at 12/08/2018 4:53 PM Narrative 12/08/2018 4:53 PM EDT EXAMINATION: XR [...] encounter documented in this encounter Care Teams Coronary Care Unit Nurse Relationship Specialty Start Date End Date Mirian Malcolm MD [address] [place] [address] PCP - General Family Medicine 08/13/18 documented as of this encounter
--- OUTSIDE RECORDS SUMMARY | 2023-10-21 02:41 | XMS_ITS | Encounter Summary ---
Author Organization [facility] Address [facility] [place] [address] Care Team Providers Care Garbage Collection Supervisor Name Role Phone Mirian Malcolm MD Primary Care Provider [phone] Reason for Visit * Reason Onset Date Comments Letter for School/Work 12/26/2018 Encounter Details Date Type Department Care Team (Late st Contact Info) Description 12/26/2018 Tele[place] [phone] Karen Alfred PA [facility] [place] [address] Letter for School/Work Social History Tobacco Use [...] PM EDT Name: Porsha Park Mailing address: [address] [place] [phone] : 1970 Diagnosis: Left IT fracture with CMN Date of Injury: 08.12.18 Date of Surgery:08.13.18 Is this Worker's Comp? NO If YES, DOI: What are you returning to/ out of (work, sports, school, etc.)? Out of work If work: what is your occupation? [employer] What do you want your start date to be? 08.13.18 What restrictions do you need? Out of work until further notice can determined February 02, 2019 If no, mailed or faxed? faxed To what address/fax#? [phone] To whose attention? Soila CONTACT NUMBER/NAME IF THIRD DEMOCRAT REQUEST: documented in this encounter Plan of Treatment Not on file documented as of this encounter Visit Diagnoses Not on filedocumented in this encounter Care Teams Garbage Collection Supervisor Relationship Specialty Start Date End Date Mirian Malcolm MD [address] [place] [address] PCP - General Family Medicine 08/13/18 documented as of this encounter
--- OUTSIDE RECORDS SUMMARY | 2023-10-21 02:41 | XMS_ITS | Clinical Summary ---
Author Organization [facility] Address [facility] [place] [address] Care Team Providers Care Provider Network Mgr Name Role Phone Mirian Malcolm MD Primary Care Provider [phone] Allergies No known active allergies Medications Medication [...] Encounters Date Type Department Care Team Description 10/03/2023 Telephone [place] [phone] Carlos Veloz MD Bumped Appointment 07/30/2023 Transcribe Orders eDH Incoming Referrals [phone] Mirian Malcolm MD Charcot's arthropathy from Last 3 Months Family History Medical [...] 02/27/2019 9:55 AM EST Plan of Treatment Health Maintenance Due Date Last Done Comments [...] history exists Medical Devices Implanted Type Area Clinical Education Assistant Device Identifier Shelf Expiration Date Model / Serial / Lot Cannu,Tfna,Ti ,130d,Lt,12x4 00-S ([id number]) (Autoreq) - [id number] Implanted:Qty : 1 on 08/13/2018 by Carlos Veloz MD at [facility] IMPLANTS Left: Femur [employer] [facility] [employer] 05/25/2028 [id number] S / / [id number] Blade,Tfna,Fn strt,Hlcl,100 mm-S ([id number]) (Autoreq) - [id number] Implanted:Qty : 1 on 08/13/2018 by Carlos Veloz MD at [facility] IMPLANTS Left: Femur [employer] [facility] 12/26/2027 [id number] S / / [id number] Screw,Ti,Lck, T25,5x46mm ([id number]) (Autoreq) - [id number] Implanted:Qty : 1 on 08/13/2018 by Carlos Veloz MD at [facility] IMPLANTS Left: Femur [employer] [facility] [facility] [facility] [employer] 01/24/2027 04.005.536 S / / [id number] Screw,Ti,Lck, T25,5x42mm ([id number]) (Autoreq) - [id number] Implanted:Qty : 1 on 08/13/2018 by Carlos Veloz MD at [facility] IMPLANTS Left: Femur [employer] [facility] [facility] [employer] 02/24/2027 [id number] S / / [id number] Procedures Procedure Name Priority Date/Time Associated Diagnosis Comments DIAGNOSTIC RADIOLOGY SCAN 07/30/2023 12:00 AM EDT BMP W/FASTING GLUCOSE Routine 08/14/2018 3:37 AM EDT from Last 3 Months or Most Recently Relevant to Health Maintenance Results * Scan Doc: Diagnostic Radiology (07/30/2023 12:00 AM EDT) Anatomical Region Laterality Modality Other Narrative 07/30/2023 12:00 AM EDT Ordered by an unspecified provider. Scanning Provider MEDIA MGR SCAN EXT O RDR/RSLT * (ABNORMAL) BMP w/fasting Glucose (08/14/2018 3:37 AM EDT) Glucose Fasting 159(H) 65 - 99 mg/dL [facility] Comment: ?Fasting* Glucose Interpretive Criteria [...] of Diabetes Mellitus, Position Statement from the [place] [employer]. ??Diabetes Care, Volume 33, Supplement 1, Feb 2009 Blood Urea Nitrogen 16 10 - 20 mg/dL [facility] Creatinine 0.89 0.80 - 1.50 mg/dL [facility] Sodium 134(L) 135 - 145 mmol/L [facility] Potassium 4.1 3.5 - 5.0 mmol/L [facility] Comment: Please note: ??Patients with WBC >100,000 may have falsely elevated Potassium levels. ??For accurate Potassium quantification in these patients send serum separator tube (gold top) for subsequent determinations. ??Contact the Clinical Chemistry Laboratory if there are any questions. Chloride 100 98 - 107 mmol/L [facility] Carbon Dioxide 25 22 - 31 mmol/L [facility] Anion Gap 9 5 - 15 mmol/L [facility] Calcium 7.6(L) 8.5 - 10.5 mg/dL [facility] Est Glomerular Filtration Rate 100 >=60 mL/min/1. 73 m?? [facility] Comment: The eGFR was calculated using the CKD-EPI equation. As with all creatinine based estimates of kidney function, eGFR values calculated with the CKD-EPI equation are not accurate in patients with acute kidney failure, extremes of body mass or the acutely ill. [email or web address] eGFR 116 >=60 mL/min/1. 73 m?? [facility] Comment: The eGFR was calculated using the CKD-EPI equation. As with all creatinine based estimates of kidney function, eGFR values calculated with the CKD-EPI equation are not accurate in patients with acute kidney failure, extremes of body mass or the acutely ill. [email or web address] Blood specimen (specimen) 08/14/2018 3:37 AM EDT 08/14/2018 3:44 AM EDT Narrative Resulting Agency Comment Spec In Lab Carlos Veloz MD CHEMISTRY ORDERABLES [facility] [place] [address] from Last 3 Months or Most Recently Relevant to Health Maintenance Advance Directives * Full Code (Latest Code Status on File) Date Activated Date Inactivated Comments 08/13/2018 7:47 AM 08/15/2018 8:44 PM Question Answer Comments Does patient have capacity to make decision: Yes Care Teams Provider Network Mgr Relationship Specialty Start Date End Date Mirian Malcolm MD [address] [place], [place] [address] PCP - General Family Medicine 08/13/18
--- OUTSIDE RECORDS SUMMARY | 2023-10-21 02:41 | XMS_ITS | Encounter Summary ---
Author Organization [facility] Address [facility] [place] [address] Care Team Providers Care Dyer Helper Name Role Phone Mirian Malcolm MD Primary Care Provider [phone] Reason for Referral * Physical Therapy (Routine) - Specialty Diagnoses / Procedures Referred By Contac t Referred To Contact Diagnoses Chronic left SI joint pain Closed displaced intertrochanteric fracture of right femur, initial encounter Trochanteric bursitis of left hip Karen Alfred PA [facility] [place] [address] Referral ID Status Reason Start Date Expiration Date V isits Requested Visits Authorized [id number] Evaluate and Treat 10/06/2018 04/04/2019 1 1 * Consultation (Routine) - Closed Specialty Diagnoses / Procedures Referred By Contac t Referred To Contact [facility] Diagnoses Chronic left SI joint pain Spine - SI joint pain/ no imaging review w/ angel Karen Alfred PA [facility] [place] [address] [facility] [place] [address] Referral ID Status Reason Start Date Expiration Date V isits Requested Visits Authorized [id number] Closed Consult, Test & Treat 10/06/2018 10/06/2019 1 1 Reason for Visit * Reason Comments Follow Up Fracture XR-L IT fx s/p CMN (Magdiel) DOI 07/1918 Encounter Details Date Type Department Care Team (Latest Contact Info) Description 10/06/2018 3:30 PM EDT Office [place] [address] Karen Alfred PA [facility] [address] [place] [address] Chronic left SI joint pain; Closed displaced [...] NAME: Porsha Park AGE: 48 y.o. MR#: [id number] DATE OF VISIT: 10/06/2018 CHIEF COMPLAINT: 8 [...] region documented in this encounter Care Teams Dyer Helper Relationship Specialty Start Date End Date Mirian Malcolm MD [address] [place] [address] PCP - General Family Medicine 08/13/18 documented as of this encounter
--- OUTSIDE RECORDS SUMMARY | 2023-10-21 02:41 | XMS_ITS | Encounter Summary ---
Author Organization [facility] Address [facility] [place] [address] Care Team Providers Care Executive Meeting Manager Name Role Phone Mirian Malcolm MD Primary Care Provider [phone] Encounter Details Date Type Department Care Team (Late st Contact Info) Description 08/18/2018 Orders [place] [address] Karen Alfred PA [facility] DR [place] [address] Social History Tobacco Use Types Packs/Day Years [...] on filedocumented in this encounter Care Teams Executive Meeting Manager Relationship Specialty Start Date End Date Mirian Malcolm MD [address] [place] [address] PCP - General Family Medicine 08/13/18 documented as of this encounter
--- OUTSIDE RECORDS SUMMARY | 2023-10-21 02:41 | XMS_ITS | Encounter Summary ---
Author Organization [facility]ending [facility] Address [facility] [place] [address] Care Team Providers Care Merchant Seaman Name Role Phone Mirian Malcolm MD Primary Care Provider [phone] Encounter Details Date Type Department Care Team (Late st Contact Info) Description 07/05/2023 12:05 AM EDT Ancillary Procedure [place]iology [place] [address] Mirian Malcolm MD [address] [place], [place] [address] Social History Tobacco Use Types Packs/Day Years [...] DX Foot (07/05/2023 12:05 AM EDT) Narrative [facility] - 07/31/2023 1:10 PM EDT This exam is auto-finalizing. It's purpose is for storage only. Mirian Malcolm MD IMG FILM LIBRARY ORD ERABLES [place], [place] documented in this encounter Visit Diagnoses Not on filedocumented in this encounter Care Teams Merchant Seaman Relationship Specialty Start Date End Date Mirian Malcolm MD [address] [place] [address] PCP - General Family Medicine 08/13/18 documented as of this encounter
--- OUTSIDE RECORDS SUMMARY | 2023-10-21 02:41 | XMS_ITS | Encounter Summary ---
Author Organization [facility] Address [facility] [place] [address] Care Team Providers Care Probation Agent Name Role Phone Mirian Malcolm MD Primary Care Provider [phone] Encounter Details Date Type Department Care Team (Late st Contact Info) Description 07/05/2023 12:10 AM EDT Ancillary Procedure [place] [address] Carlos Veloz MD [facility] [place] [address] Social History Tobacco Use Types Packs/Day Years [...] DX Foot (07/05/2023 12:10 AM EDT) Narrative [facility] - 07/31/2023 1:16 PM EDT This exam is auto-finalizing. It's purpose is for storage only. Carlos Veloz MD G FILM LIBRARY ORD ERABLES [place], [place] documented in this encounter Visit Diagnoses Not on filedocumented in this encounter Care Teams Probation Agent Relationship Specialty Start Date End Date Mirian Malcolm MD [address] [place] [address] PCP - General Family Medicine 08/13/18 documented as of this encounter
--- OUTSIDE RECORDS SUMMARY | 2023-10-21 02:41 | XMS_ITS | Encounter Summary ---
Author Organization [facility] Address [facility] [place] [address] Care Team Providers Care Director Data Architecture Name Role Phone Mirian Malcolm MD Primary Care Provider [phone] Encounter Details Date Type Department Care Team (Latest Contact Info) Description 08/27/2018 1:56 PM EDT - 08/27/2018 11:59 PM EDT Hospital Encounter XRay at [address] [place] [address] Carlos Veloz MD [facility] [place] [address] Closed displaced intertrochanteric fracture of right femur, [...] below. ? Electronically signed by: DAGO Morocho [facility] ([phone]), at 08/27/2018 2:46 PM Narrative 08/27/2018 2:46 [...] encounter documented in this encounter Care Teams Director Data Architecture Relationship Specialty Start Date End Date Mirian Malcolm MD [address] [place] [address] PCP - General Family Medicine 08/13/18 documented as of this encounter
--- OUTSIDE RECORDS SUMMARY | 2023-10-21 02:41 | XMS_ITS | Encounter Summary ---
Author Organization [facility] Address [facility] [place] [address] Care Team Providers Care Medical Resident Name Role Phone Mirian Malcolm MD Primary Care Provider [phone] Encounter Details Date Type Department Care Team (Late st Contact Info) Description 06/07/2022 Telephone Dermatology at [address] [address] Eileen King LPN Social History [...] for two weeks. We have contacted the [facility] and she will be back in the office tomorrow. Dr. Fournier recommends patient continue applying TAC until we hear from his PCP. Patient voiced understanding. We will contact patient when PCP has made her decision. Called [facility]. PCP wants patient to stop Lisinopril/Hctz. They [...] on filedocumented in this encounter Care Teams Medical Resident Relationship Specialty Start Date End Date Mirian Malcolm MD [address] [place] [address] PCP - General Family Medicine 08/13/18 documented as of this encounter
--- OUTSIDE RECORDS SUMMARY | 2023-10-21 02:41 | XMS_ITS | Encounter Summary ---
Author Organization [facility] Address [facility] [place] [address] Care Team Providers Care Senior Risk Analyst Name Role Phone Mirian Malcolm MD Primary Care Provider [phone] Encounter Details Date Type Department Care Team [...] on filedocumented in this encounter Care Teams Senior Risk Analyst Relationship Specialty Start Date End Date Mirian Malcolm MD [address] [place] [address] PCP - General Family Medicine 08/13/18 documented as of this encounter
--- OUTSIDE RECORDS SUMMARY | 2023-10-21 02:41 | XMS_ITS | Encounter Summary ---
Author Organization [facility] Address [address] [place] [address] Care Team Providers Care Media Supervisor Name Role Phone Mirian Malcolm MD Primary Care Provider [phone] Reason for Referral * (Routine/Next Available) - Receiving Office to Obtain Authorization Specialty Diagnoses / Procedures Referred By Contac t Referred To Contact Procedures XR OUTSIDE IMAGES LEFT LOWER EXTREMITY Imaging, External Referral ID Status Reason Start Date Expiration Date Visits Requested Visits Authorized [id number] Receiving Office to Obtain Authorization 08/13/2023 1 1 Reason for Visit * (Routine/Next Available) - Receiving Office to Obtain Authorization Specialty Diagnoses / Procedures Referred By Contac t Referred To Contact Procedures XR OUTSIDE IMAGES LEFT LOWER EXTREMITY Imaging, External Referral ID Status Reason Start Date Expiration Date Visits Requested Visits Authorized [id number] Receiving Office to Obtain Authorization 08/13/2023 1 1 Encounter Details Date Type Department Care Team (Latest Contact Info) Description 08/01/2023 - 08/01/2023 0:04 EDT Hospital Encounter [facility] Secondary Reads [place] Discharge Disposition: Home [...] on filedocumented in this encounter Care Teams Media Supervisor Relationship Specialty Start Date End Date Mirian Malcolm MD [address] [place] [phone] PCP - General Family Medicine - Primary Care 09/25/20 documented as of this encounter
--- OUTSIDE RECORDS SUMMARY | 2023-10-21 02:41 | XMS_ITS | Encounter Summary ---
Author Organization [facility] Address [facility] [place] [address] Care Team Providers Care Aba Therapist Name Role Phone Mirian Malcolm MD Primary Care Provider [phone] Reason for Visit * Reason Onset Date Comments Bumped Appointment 10/03/2023 Encounter Details Date Type Department Care Team (Late st Contact Info) Description 10/03/2023 Telephone [place] [id number] Carlos Mark MD [facility] [address] ORTHOPA[place] [address] Bumped Appointment Social History Tobacco Use Types [...] encounter Miscellaneous Notes * Telephone Encounter - Tiffany Claros - 10/09/2023 7:17 AM EDT Patient has not responded to our calls, letter has been mailed asking they call and schedule with Dr Ortega as requested, providing the slot is still available. * Telephone Encounter - Gris Vasquez - 10/07/2023 2:14 PM EDT LM#3 to reschedule bumped appointment with DR. MARK scheduled on 10/02. Please reschedule to [facility] 10/22 AT 9:30 SPOT IS ON HOLD NXR NXR RIGHT FOOT CHARCOT'S ARTHROPATHY SECOND OPINION * Telephone Encounter - Lili Hoffman - 10/03/2023 11:30 AM EDT LM#2 to reschedule bumped appointment with DR. MARK scheduled on 10/02. Please reschedule to [facility] 10/22 AT 9:30 SPOT IS ON HOLD NXR NXR RIGHT FOOT CHARCOT'S ARTHROPATHY SECOND OPINION . * Telephone Encounter - Lili Hoffman - 10/03/2023 10:37 AM EDT LM#1 to reschedule bumped appointment with DR. MARK scheduled on 10/02. [facility]30 SPOT IS ON HOLD NXR NXR RIGHT FOOT CHARCOT'S ARTHROPATHY SECOND OPINION . documented in this encounter Plan of Treatment Not on file documented as of this encounter Visit Diagnoses Not on filedocumented in this encounter Care Teams Aba Therapist Relationship Specialty Start Date End Date Mirian Malcolm MD [address] [place] [address] PCP - General Family Medicine 08/13/18 documented as of this encounter
--- OUTSIDE RECORDS SUMMARY | 2023-10-21 02:41 | XMS_ITS | Encounter Summary ---
Author Organization [facility] [place] [address] Care Team Providers Care Daylight Driller Name Role Phone Mirian Malcolm MD Primary Care Provider [phone] Encounter Details Date Type Department Care Team (Late st Contact Info) Description 12/23/2018 Telephone Orthopaedics at [facility] [place] [address] Marii Shah RN Social History Tobacco Use [...] that there is an issue with his [place] paperwork, he states that he needs all th office notes since July to be faxed to Soila at [phone]. Reviewed we would send to our FMLAexpert and they would be in touch with any further concerns documented in this encounter Plan of Treatment Not on file documented as of this encounter Visit Diagnoses Not on filedocumented in this encounter Care Teams Daylight Driller Relationship Specialty Start Date End Date Mirian Malcolm MD [address] [place] [address] PCP - General Family Medicine 08/13/18 documented as of this encounter
--- OUTSIDE RECORDS SUMMARY | 2023-10-21 02:41 | XMS_ITS | Encounter Summary ---
Author Organization [facility] Address [facility] [place] [address] Care Team Providers Care Sugar House Supervisor Name Role Phone Mirian Malcolm MD Primary Care Provider [phone] Reason for Referral * Physical Therapy (Routine) - Specialty Diagnoses / Procedures Referred By Contblake t Referred To Contact Diagnoses Closed displaced intertrochanteric fracture of right femur, initial encounter Karen Alfred PA [facility] [place] [address] Referral ID Status Reason Start Date Expiration Date V isits Requested Visits Authorized [id number] Evaluate and Treat 08/27/2018 02/23/2019 1 1 Reason for Visit * Reason Comments Follow Up Surgery L IT s/p CMN 08/13/18 (Magdiel) DOI: 08/13/18 Encounter Details Date Type Department Care Team (Latest Contact Info) Description 08/27/2018 2:30 PM EDT [place] [address] [facility] [place] [address] Closed displaced intertrochanteric fracture of right femur, [...] NAME: Porsha Park AGE: 48 y.o. MR#: [id number] DATE OF VISIT: 08/27/2018 CHIEF COMPLAINT: 2 [...] encounter documented in this encounter Care Teams Sugar House Supervisor Relationship Specialty Start Date End Date Mirian Malcolm MD [address] [place] [address] PCP - General Family Medicine 08/13/18 documented as of this encounter
--- OUTSIDE RECORDS SUMMARY | 2023-10-21 02:41 | XMS_ITS | Clinical Summary ---
Author Organization [facility] Address [address] [place] [address] Care Team Providers Care Criminal Research Specialist Name Role Phone Mirian Malcolm MD Primary Care Provider [phone] Encounters Date Type Department Care Team Description 10/10/2023 Orders Only [facility] Foot & Ankle Program - [address] [place], [place] [id number] Philip Mckeon MD Charcot's joint of foot, right (Primary Dx); Charcot's joint of left foot 08/01/2023 0:05 EDT - 08/01/2023 23:59 EDT Hospital Encounter [facility] [place] Discharge Disposition: Home or Self Care 08/01/2023 - 08/01/2023 0:04 EDT Hospital Encounter [facility] [place] Discharge Disposition: Home or Self Care from Last 3 Months Social History Tobacco Use Types Packs/Day Years Used Date Smoking Tobacco: Never Assessed Sex and Gender Information Value Date Recorded Sex Assigned at Not on file Gender Identity Not on file Sexual Orientation Not on file Plan of Treatment Health Maintenance Due Date [...] DERABLES from Last 3 Months Care Teams Criminal Research Specialist Relationship Specialty Start Date End Date Mirian Malcolm MD [address] [place] [address] PCP - General Family Medicine - Primary Care 09/25/20
--- OUTSIDE RECORDS SUMMARY | 2023-10-21 02:41 | XMS_ITS | Encounter Summary ---
Author Organization [facility] Address [facility] [place] [address] Care Team Providers Care Health Services Rn Name Role Phone Mirian Malcolm MD Primary Care Provider [phone] Reason for Visit * Reason Onset Date Comments Disability Paperwork 08/21/2018 Encounter Details Date Type Department Care Team (Late st Contact Info) Description 08/21/2018 Telephone [place] [phone] Carlos Veloz MD [facility] [place] [address] Disability Paperwork Social History Tobacco Use Types [...] EDT Date Received: 08/20/18 Insurance/Disability Company Name: [facility] Release on file/mailed: n/a documented in this encounter Plan of Treatment Not on file documented as of this encounter Visit Diagnoses Not on filedocumented in this encounter Care Teams Health Services Rn Relationship Specialty Start Date End Date Mirian Malcolm MD [address] [place] [address] PCP - General Family Medicine 08/13/18 documented as of this encounter
--- OUTSIDE RECORDS SUMMARY | 2023-10-21 02:41 | XMS_ITS | Encounter Summary ---
Author Organization [facility] Address [facility] [place] [address] Care Team Providers Care Senior Process Analyst Name Role Phone Mirian Malcolm MD Primary Care Provider [phone] Encounter Details Date Type Department Care Team (Late st Contact Info) Description 07/12/2023 Ancillary Procedure [place] [address] Carlos Veloz MD [facility] [place] [address] Social History Tobacco Use Types Packs/Day Years [...] Foot (07/12/2023 12:00 AM EDT) Narrative DAGO MATHEW - 07/31/2023 1:21 PM EDT This exam is auto-finalizing. It's purpose is for storage only. Carlos Veloz MD IMG FILM LIBRARY ORD ERABLES [place], [place] documented in this encounter Visit Diagnoses Not on filedocumented in this encounter Care Teams Senior Process Analyst Relationship Specialty Start Date End Date Mirian Malcolm MD [address] [place] [address] PCP - General Family Medicine 08/13/18 documented as of this encounter
--- OUTSIDE RECORDS SUMMARY | 2023-10-21 02:41 | XMS_ITS | Encounter Summary ---
Author Organization [facility] [place] [address] Care Team Providers Care Home Service Advisor Name Role Phone Mirian Malcolm MD Primary Care Provider [phone] Encounter Details Date Type Department Care Team (Late st Contact Info) Description 08/18/2018 Telephone Orthopaedics at [facility] [place] [phone] Irving Lopez, RN Social History Tobacco Use [...] on filedocumented in this encounter Care Teams Home Service Advisor Relationship Specialty Start Date End Date Mirian Malcolm MD [address] [place] [address] PCP - General Family Medicine 08/13/18 documented as of this encounter
--- OUTSIDE RECORDS SUMMARY | 2023-10-21 02:41 | XMS_ITS | Encounter Summary ---
Author Organization [facility] [place] [address] Care Team Providers Care Insulation Inspector Name Role Phone Mirian Malcolm MD Primary Care Provider [phone] Reason for Visit * Reason Onset Date Comments Referral 09/02/2018 PT Encounter Details Date Type Department Care Team (Late st Contact Info) Description 09/02/2018 Telephone [place] [address] Mirian Velazco RN Referral (PT) Social History [...] faxed to [facility] (PH: [phone]; FAX: [phone]). documented in this encounter Plan of Treatment Not on file documented as of this encounter Visit Diagnoses Not on filedocumented in this encounter Care Teams Insulation Inspector Relationship Specialty Start Date End Date Mirian Malcolm MD [address] [place] [address] PCP - General Family Medicine 08/13/18 documented as of this encounter
--- OUTSIDE RECORDS SUMMARY | 2023-10-21 02:41 | XMS_ITS | Encounter Summary ---
Author Organization [facility] Address [facility] [place] [address] Care Team Providers Care Commercial Internship Name Role Phone Mirian Malcolm MD Primary Care Provider [phone] Encounter Details Date Type Department Care Team (Latest Contact Info) Description 12/08/2018 4:30 PM EDT - 12/08/2018 11:59 PM EDT Hospital Encounter XRay at [address] [place] [address] Ester Almendarez MD [facility] [address] Closed displaced intertrochanteric fracture of right femur, [...] chronic. Procedure Note Cuco Ewing MD - 10/14/2019 EXAMINATION: XR FEMUR 2 VIEWS LEFT (GENERIC) [...] encounter documented in this encounter Care Teams Commercial Internship Relationship Specialty Start Date End Date Mirian Malcolm MD [address] [place] [address] PCP - General Family Medicine 08/13/18 documented as of this encounter
--- OUTSIDE RECORDS SUMMARY | 2023-10-21 02:41 | XMS_ITS | Encounter Summary ---
Author Organization [facility] Address [address] [place] [address] Care Team Providers Care University Professor Name Role Phone Mirian Malcolm MD Primary Care Provider [phone] Reason for Referral * (Routine/Next Available) - Receiving Office to Obtain Authorization Specialty Diagnoses / Procedures Referred By Contac t Referred To Contact Procedures XR OUTSIDE IMAGES RIGHT LOWER EXTREMITY Imaging, External Referral ID Status Reason Start Date Expiration Date Visits Requested Visits Authorized [id number] Receiving Office to Obtain Authorization 08/13/2023 1 1 Reason for Visit * (Routine/Next Available) - Receiving Office to Obtain Authorization Specialty Diagnoses / Procedures Referred By Contac t Referred To Contact Procedures XR OUTSIDE IMAGES RIGHT LOWER EXTREMITY Imaging, External Referral ID Status Reason Start Date Expiration Date Visits Requested Visits Authorized [id number] Receiving Office to Obtain Authorization 08/13/2023 1 1 Encounter Details Date Type Department Care Team (Latest Contact Info) Description 08/01/2023 0:05 EDT - 08/01/2023 23:59 EDT Hospital Encounter [facility] Secondary [place] Discharge Disposition: Home [...] on filedocumented in this encounter Care Teams University Professor Relationship Specialty Start Date End Date Mirian Malcolm MD [address] [place] [address] PCP - General Family Medicine - Primary Care 09/25/20 documented as of this encounter
--- OUTSIDE RECORDS SUMMARY | 2023-10-21 02:41 | XMS_ITS | Encounter Summary ---
Author Organization [facility] Address [facility] [place] [address] Care Team Providers Care Travel Service Consultant Name Role Phone Mirian Malcolm MD Primary Care Provider [phone] Reason for Visit * Reason Onset Date Comments Letter for School/Work 02/05/2019 Encounter Details Date Type Department Care Team (Late st Contact Info) Description 02/05/2019 [place] [phone] Karne Alfred, PA [facility] [place] [address] Letter for School/Work Social History Tobacco Use [...] the letter needs to be faxed to [phone]. Letter Printed and re-faxed. * Telephone Encounter - Mirian Solo - 02/05/2019 12:33 PM EST Letter created and faxed. * Telephone Encounter - Gris Vasquez - 02/05/2019 11:55 AM EST Provider last seen by? Aubrie What type of letter is needed? To inform his work of his next appointment 02/27/2019 Would you like to vegetable picker your letter, fax, mail, or myD-H? fax no email please, only as a last option To what address/fax#? [phone] To whose attention? Soila Chan documented in this encounter Plan of Treatment Not on file documented as of this encounter Visit Diagnoses Not on filedocumented in this encounter Care Teams Travel Service Consultant Relationship Specialty Start Date End Date Mirian Malcolm MD [address] [place] [address] PCP - General Family Medicine 08/13/18 documented as of this encounter
--- OUTSIDE RECORDS SUMMARY | 2023-10-21 02:41 | XMS_ITS | Encounter Summary ---
Author Organization [facility] Address [address] [place] [address] Care Team Providers Care Electronics Engineering Technologist Name Role Phone Mirian Malcolm MD Primary Care Provider [phone] Encounter Details Date Type Department Care Team (Late st Contact Info) Description 03/02/2022 Lab Requisition [facility] Pathology & Laboratory Medicine - [facility] [address] [place], [place] [phone] Outr Resulting Lab, Provider Social History Tobacco [...] Priority Date/Time Associated Diagnosis Comments ZZCOVID-19 TEST [facility] PCR Today 03/01/2022 8:32 EST COVID-19 TESTING Routine 03/01/2022 8:32 EST documented in this encounter Results * COVID-19 TEST [facility] PCR (03/01/2022 8:32 EST) Swab 03/01/2022 8:32 EST 03/02/2022 17:50 EST Provider Outr Resulting Lab MICROBIOLOGY - GENERAL ORDERABLES [facility] [address] [place] [address] * COVID-19 TESTING (03/01/2022 8:32 EST) COVID-19 rt-PCR Result Negative Negative 03/03/2022 11:44 EST [facility] Comment: This test has [...] was performed using the shonda SARS-CoV-2 assay ([employer] on the Shonda 6800 System Performing Lab Shonda 6800 [facility] 03/03/2022 11:44 EST [facility] Swab 03/01/2022 8:32 EST 03/02/2022 17:50 EST Provider Outr Resulting Lab MICROBIOLOGY - GENERAL ORDERABLES [facility] [address] [place] [address] documented in this encounter Visit Diagnoses Not on filedocumented in this encounter Care Teams Electronics Engineering Technologist Relationship Specialty Start Date End Date Mirian Malcolm MD [address] [place] [address] PCP - General Family Medicine - Primary Care 09/25/20 documented as of this encounter
--- OUTSIDE RECORDS SUMMARY | 2023-10-21 02:41 | XMS_ITS | Encounter Summary ---
Author Organization [facility] Address [address] [place] [address] Care Team Providers Care Can Patcher Name Role Phone Mirian Malcolm MD Primary Care Provider [phone] Reason for Visit * Reason Onset Date Comments Appointment Related 10/10/2023 Encounter Details Date Type Department Care Team (Late st Contact Info) Description 10/10/2023 Orders Only [facility]le [facility] - [address] [place] [address] Philip Mckeon MD [address] [place] [address] Charcot's joint of foot, right (Primary Dx); Charcot's joint of left foot Social History Tobacco Use Types Packs/Day Years Used Date Smoking Tobacco: Never Assessed Sex and Gender Information Value Date Recorded Sex Assigned at Not on file Gender Identity Not on file Sexual Orientation Not on file documented as of this encounter Plan of Treatment Scheduled Orders Name Type Priority Associated Diagnoses Orde r Schedule XR FOOT RIGHT 3 OR MORE VIEWS Imaging Routine Charcot's joint of foot, right Expected: 10/14/2023 XR FOOT LEFT 3 OR MORE VIEWS Imaging Routine Charcot's joint of left foot Expected: 10/14/2023 documented as of this encounter Visit Diagnoses Diagnosis Charcot's joint of foot, right- Primary Charcot's joint of left foot documented in this encounter Care Teams Can Patcher Relationship Specialty Start Date End Date Mirian Malcolm MD [address] [place] [address] PCP - General Family Medicine - Primary Care 09/25/20 documented as of this encounter
--- OUTSIDE RECORDS SUMMARY | 2023-10-21 02:41 | XMS_ITS | Encounter Summary ---
Author Organization [facility] Address [facility] [place] [address] Care Team Providers Care Bearing Grinder Name Role Phone Mirian Malcolm MD Primary Care Provider [phone] Reason for Visit * Reason Comments Rash * Consultation (Routine) - Closed Specialty Diagnoses / Procedures Referred By Contblake t Referred To Contact Dermatology Diagnoses Rash and other nonspecific skin eruption Procedures Rash; Est. Patient Christine Gonzales PA [address] [place] [address] Kimo Fournier MD [address] [place] [address], [facility] [place] [address] Referral ID Status Reason Start Date Expiration Date V isits Requested Visits Authorized [id number] Closed Consult, Test & Treat 04/05/2022 04/05/2023 1 1 Encounter Details Date Type Department Care Team (Late st Contact Info) Description 04/10/2022 9:30 AM EST Office Visit Dermatology at [address] [address] Kimo Fournier MD [address] [place] [address], [facility] DERMATOLOGY [place], [place] [phone] Allergic contact dermatitis, unspecified trigger Social History [...] Prabhu been 3x to urgent care in [place] and 3 times to the ER TXR H. He works at [employer] and states has been no change in his regular regimen of medications or personal skin care products. He washes with [employer] soap, he uses spine shampoo. He washes [...] trigger documented in this encounter Care Teams Bearing Grinder Relationship Specialty Start Date End Date Mirian Malcolm MD [address] [place] [address] PCP - General Family Medicine 08/13/18 documented as of this encounter
--- OUTSIDE RECORDS SUMMARY | 2023-10-21 02:41 | XMS_ITS | Encounter Summary ---
Author Organization [facility] Address [address] [place] [address] Care Team Providers Care Paper Cone Grader Name Role Phone Mirian Malcolm MD Primary Care Provider [phone] Encounter Details Date Type Department Care Team (Late st Contact Info) Description 10/08/2020 Lab Requisition [facility] Pathology & Laboratory Medicine - [facility] [address] [place] [address] Kathryn Francis, DO [address] [facility] [address] [place] [address] Benign neoplasm, unspecified site Social [...] explore management options, if applicable. 10/10/2020 13:17 EDT [facility] Final Diagnosis A. COLON, 80 CMS, POLYPS X3, BIOPSY: - Tubular adenomas. B. COLON, CECUM, POLYP, BIOPSY: - Tubulovillous adenoma, completely excised. C. COLON, 20 CMS, POLYPS X3, BIOPSY: - Tubulovillous adenomas. - Hyperplastic polyps. D. RECTUM, POLYPS X2, BIOPSY: - Hyperplastic polyps. 10/10/2020 13:17 [facility] Attestation By the signature below, the attending physician certifies that they have 1) personally conducted a gross and/or microscopic examination of the described specimen(s), and/or personally interpreted the results of laboratory testing of the described specimen(s), and 2) personally rendered or confirmed the above diagnosis. 10/10/2020 13:17 [facility] at 1317 Clinical History Screening, family history 10/10/2020 13:17 [facility] Gross Description A. [...] specimen is submitted entirely in D1. RAFAEL CERON[facility] 10/08/2020 14:10 10/10/2020 13:17 EDT [facility] Performing Lab [facility] 10/10/2020 13:17 EDT [facility] Scanned Images 10/10/2020 13:17 EDT [facility] Tissue SPECIMEN FROM RECTUM / Unknown 10/07/2020 12:21 EDT 10/08/2020 8:44 EDT Tissue specimen (specimen) COLON STRUCTURE / Unknown 10/07/2020 12:21 EDT 10/08/2020 8:44 EDT Tissue specimen (specimen) COLON STRUCTURE / Unknown 10/07/2020 12:21 EDT 10/08/2020 8:44 EDT Tissue specimen (specimen) SPECIMEN FROM RECTUM / Unknown 10/07/2020 12:21 EDT 10/08/2020 8:44 EDT Kathryn Francis DO PATHOLOGY ORDERABLES [facility] [address] [place] [address] documented in this encounter Visit Diagnoses Diagnosis Benign neoplasm, unspecified site documented in this encounter Care Teams Paper Cone Grader Relationship Specialty Start Date End Date Mirian Malcolm MD [address] [place] [address] PCP - General Family Medicine - Primary Care 09/25/20 documented as of this encounter
--- OUTSIDE RECORDS SUMMARY | 2023-10-21 02:41 | XMS_ITS | Encounter Summary ---
Author Organization [facility] Address [address] [place] [address] Care Team Providers Care Health Advocate Name Role Phone Mirian Malcolm MD Primary Care Provider [phone] Encounter Details Date Type Department Care Team (Late st Contact Info) Description 01/02/2022 Lab Requisition [facility] Pathology & Laboratory Medicine - [facility] [address] [place] [address] Matt Collins MD [address] [place] [address], [address] [place] [address] Encounter for other general examination [...] explore management options, if applicable. 01/03/2022 10:33 EST [facility] Final Diagnosis A. COLON, CECUM, [...] POLYP, BIOPSY: - Hyperplastic polyp. 01/03/2022 10:33 [facility] Attestation By the signature below, the attending physician certifies that they have 1) personally conducted a gross and/or microscopic examination of the described specimen(s), and/or personally interpreted the results of laboratory testing of the described specimen(s), and 2) personally rendered or confirmed the above diagnosis. 01/03/2022 10:33 [facility] at 1033 Clinical History Colon cancer screening; history of polyps; clinical diagnosis code: Z12.11 01/03/2022 10:33 [facility] Gross Description A. Received [...] RAFAEL HOLBROOK(ASCP) 01/02/2022 19:32 01/03/2022 10:33 EST [facility] Performing Lab [facility] 01/03/2022 10:33 EST [facility] Scanned Images 01/03/2022 10:33 EST [facility] Tissue POLYP OF COLON [...] 16:41 EST Matt Collins MD PATHOLOGY ORDERABLES [facility] [address] [place] [address] documented in this encounter Visit Diagnoses Diagnosis Encounter for other general examination documented in this encounter Care Teams Health Advocate Relationship Specialty Start Date End Date Mirian Malcolm MD [address] [place] [phone] PCP - General Family Medicine - Primary Care 09/25/20 documented as of this encounter
--- OUTSIDE RECORDS SUMMARY | 2023-10-21 02:41 | XMS_ITS | Encounter Summary ---
Author Organization [facility] Address [facility] [place] [address] Care Team Providers Care Freight Flow Sales Leader Name Role Phone Mirian Malcolm MD Primary Care Provider [phone] Encounter Details Date Type Department Care Team (Late st Contact Info) Description 04/10/2022 Refill Dermatology at [address] [address] Erin Robert, RN Social History Tobacco Use [...] on filedocumented in this encounter Care Teams Freight Flow Sales Leader Relationship Specialty Start Date End Date Mirian Malcolm MD [address] [place] [address] PCP - General Family Medicine 08/13/18 documented as of this encounter
--- OUTSIDE RECORDS SUMMARY | 2023-10-21 02:42 | XMS_ITS | Encounter Summary ---
Author Organization [facility] Address [facility] [place] [address] Care Team Providers Care Marketing Designer Name Role Phone Monica Paige Primary Care Provider [phone] Encounter Details Date Type Department Care Team (Late st Contact Info) Description 06/28/2016 Telephone Neurology at [facility] [place] [address] Cassy Quiñonez MD [facility] [place] [address] Social History Tobacco Use Types Packs/Day Years [...] 06-27-[address] Malcolm's office in [place], [place]. documented in this encounter Plan of Treatment Not on file documented as of this encounter Visit Diagnoses Not on filedocumented in this encounter Care Teams Marketing Designer Relationship Specialty Start Date End Date Monica Paige PA [address] [place], [place] [address] PCP - General Family Medicine 05/14/16 08/12/18 documented as of this encounter
--- OUTSIDE RECORDS SUMMARY | 2023-10-21 02:42 | XMS_ITS | Encounter Summary ---
Author Organization [facility] Address [facility] [place] [address] Care Team Providers Care Maintenance Department Manager Name Role Phone Monica Paige Primary Care Provider [phone] Reason for Visit * Reason Comments Varicose Veins pt here for f/u VV r upture and foot numbness * Consultation (Routine) - Specialty Diagnoses / Procedures Referred By Contblake t Referred To Contact Vascular Surgery Diagnoses severe varicose veins with inflammation Monica Paige PA [address] [place] [address] [facility] [address] [place] [address] Referral ID Status Reason Start Date Expiration Date V isits Requested Visits Authorized [id number] [facility] 05/14/2016 05/14/2017 2 2 Encounter Details Date Type Department Care Team (Late st Contact Info) Description 06/01/2016 8:30 AM EDT Office [place] [phone] Mary Ko MD [facility] [place] [address] Varicose veins of leg with swelling, unspecified [...] documented in this encounter Progress Notes * Mary Ko MD - 06/01/2016 8:30 AM EDT OUTPATIENT VASCULAR SURGERY CONSULTATION Reason for Visit: varicose veins Prior Vascular History: Varicose veins without prior intervention History of Present Illness: Mr. Park is a 46 yo male referred by Dr. Paige for evaluation of varicose veins. He was seen by Dr. Child on our offices over three years ago [...] Take 100 mg by mouth daily. ??? Djdc-Fteoku-PrnnheDjyg-D3-C-Mn (UQVYULFNQND-HWQPRZMTXTF-DBZ D3) 500-400-667 mg-mg-unit Cap Take1 tablet by mouth daily. ??? multivitamin with minerals (THERA-M) 9-0.4 mg tablet Take 1 tablet by mouth daily. No current facility-administered medications for this visit. Functional Status/Social Hx: Walks independently, Lives at home in [facility], , employed, Drives Car, large [...] disorder documented in this encounter Care Teams Maintenance Department Manager Relationship Specialty Start Date End Date Monica Paige PA [address] [place] [address] PCP - General Family Medicine 05/14/16 08/12/18 documented as of this encounter
--- OUTSIDE RECORDS SUMMARY | 2023-10-21 02:42 | XMS_ITS | Encounter Summary ---
Author Organization [facility] Address [facility] [place] [address] Care Team Providers Care Paintings Restorer Name Role Phone Unavailable Primary Care Provider Unavailabl e Encounter Details Date Type Department Care Team (Latest Contact Info) Description 04/18/2016 - 04/18/2016 8:59 PM EST Hospital Encounter [place] [address] Carlos Veloz MD [facility] DR [place] [address] Pain Discharge Disposition: Home Social History Tobacco [...] mouth every 6 hours as needed. 02/20/2018 Uozp-Nxgsmv-XucafrUokh-D3 -C-Mn (GLUCOSAMINE-CHONDROITIN- VIT D3) 500-400-667 mg-mg-unit Cap [...] CT Pelvis (04/18/2016 12:00 AM EST) Narrative PRIYANKA - 04/18/2016 6:14 PM EST This exam is for storage only and is auto-finalizing. Carlos Veloz MD IMG FILM LIBRARY ORD ERABLES Performing Organization Address City/State/[facility] Co de Phone Number PRIYANKA [place] documented in this encounter Visit Diagnoses Diagnosis Pain Generalized pain documented in this encounter
--- OUTSIDE RECORDS SUMMARY | 2023-10-21 02:42 | XMS_ITS | Encounter Summary ---
Author Organization [facility] [place] [address] Care Team Providers Care Hotel Service Supervisor Name Role Phone Monica Paige Primary Care Provider [phone] Encounter Details Date Type Department Care Team (Late st Contact Info) Description 02/19/2018 Orders Only Vascular Surgery at [facility] [place] [address] Cha Moffett RN Bleeding from varicose vein [...] Text Report Department: Vascular Surgery Lab Patient: [id number] ([place]) CPT: 96494 ICD10: I83.899;I83.813;I8 7.2 Referring Physician: RAÚL FARMER [...] complications documented in this encounter Care Teams Hotel Service Supervisor Relationship Specialty Start Date End Date Monica Paige PA [address] [place] [address] PCP - General Family Medicine 05/14/16 08/12/18 documented as of this encounter
--- OUTSIDE RECORDS SUMMARY | 2023-10-21 02:42 | XMS_ITS | Encounter Summary ---
Author Organization [facility] Address [facility] [address] Care Team Providers Care Pump Oiler Name Role Phone Mirian Malcolm MD Primary Care Provider [phone] Encounter Details Date Type Department Care Team (Late st Contact Info) Description 08/13/2018 2:40 AM EDT Ancillary Procedure [place] [phone] Social History Tobacco Use Types Packs/Day Years [...] And Spine (08/13/2018 2:31 AM EDT) Narrative RAD - 08/13/2018 2:31 AM EDT This exam is auto-finalizing. It's purpose is for storage only. Williams Bridges MD G FILM LIBRARY ORD ERABLES [place], [place] documented in this encounter Visit Diagnoses Not on filedocumented in this encounter Care Teams Pump Oiler Relationship Specialty Start Date End Date Mirian Malcolm MD [address] [place] [address] PCP - General Family Medicine 08/13/18 documented as of this encounter
--- OUTSIDE RECORDS SUMMARY | 2023-10-21 02:42 | XMS_ITS | Encounter Summary ---
Author Organization [facility] [place] [address] Care Team Providers Care Supply Chain Project Manager Name Role Phone Monica Paige Primary Care Provider [phone] Reason for Visit * Reason Onset Date Comments Other 02/21/2018 Encounter Details Date Type Department Care Team (Late st Contact Info) Description 02/21/2018 Telephone [facility] [place] [phone] Jerrica Pichardo Other Social History Tobacco Use [...] - 02/21/2018 12:39 PM EST YELLOW/PINK/RECALL LIST: Yayo PROVIDER: Marleny WATERS RECALL: AAA - screening AAA NOTES: LVM - 1X documented in this encounter Plan of Treatment Not on file documented as of this encounter Visit Diagnoses Not on filedocumented in this encounter Care Teams Supply Chain Project Manager Relationship Specialty Start Date End Date Monica Paige PA [address] [place] [address] PCP - General Family Medicine 05/14/16 08/12/18 documented as of this encounter
--- OUTSIDE RECORDS SUMMARY | 2023-10-21 02:42 | XMS_ITS | Encounter Summary ---
Author Organization Formerly [facility] Address [facility] [place] [address] Care Team Providers Care Reverse Logistics Analyst Name Role Phone Unavailable Primary Care Provider Unavailabl e Reason for Visit * Reason Comments Leg Pain right Encounter Details Date Type Department Care Team (Late st Contact Info) Description 04/18/2016 9:00 PM EST - 04/19/2016 3:44 PM EST Emergency [place] [address] Zenia Mojica MD [facility] [place] [address] Thigh hematoma, right, initial encounter; Right thigh [...] Clinic Saturday thru Saturday 8am - 5pm: [phone] Orthopaedic Physician vice president [employer] --After 5pm and Weekends: [phone] We are interested in your prompt and [...] mouth every 6 hours as needed. 02/20/2018 Asrw-Mqcsku-ZmowovGuil-D3 -C-Mn (GLUCOSAMINE-CHONDROITIN- VIT D3) 500-400-667 mg-mg-unit Cap Take 1 tablet by mouth daily. 06/27/2016 documented as of this encounter ED Notes * Tanner Kya MD - 04/19/2016 3:44 PM EST ED [...] had initially presented to the ED at [facility] yesterday after having felt a pop [...] Discharge: good Alcon Aguilar MD Resident 04/19/16 0362 ED ATTENDING ATTESTATION NOTE The patient was seen in conjunction with Dr. Aguilar, the resident physician. I have independently performed the gilliam portions of the history and physical exam. [...] - 04/18/2016 10:02 PM EST Porsha Park [id number] Porsha Park [id number] Chief Complaint: right inner thigh pain HPI Porsha Park is a 46 y.o. male with PMHx of neuropathy of uncertain etiology who presents to the Emergency Department in transfer for [facility] for right thigh adductor mass. Patient reports that he hasa history of some aches and pains however was walking today when he felt a sudden pop and was unable to ambulate. He went to an [facility] where he was seen by an orthopedist as there is concern for possible abscess given leukocytosis versus hematoma versus mass they sent him here via ambulance for an emergent MRI. At [facility] he was noted to have a [...] Negative mcL Appearance UA Clear Clear Spec [place] UA 1.004 1.002 - 1.030 Color UA [...] MRI I discussed the case with the radiology aide. As we did not have techs available unable to perform MRI tonight. Given concern at outside hospital for possible hematoma or abscess CT with IV contrast was obtained and orthopedics was consulted. - I reviewed the CT with contrast and discussed with radiology aide: likely thigh hematoma; recommend follow up with MRI - Discussed with orthopaedics and hospital medicine; per orthopaedics recommend MRI no acute surgical need. Per hospital medicine no beds available at this time and MRI capability at [facility] during day - Discussed with radiology aide again after final read; still unable to guarantee MRI time at time of diccussion - PT consult placed - fraud manager contacted given difficulty obtaining MRI and with [...] for IE EMANUEL ULRICH, PT 04/19/2016 Pager: [phone] Physical Therapy Rehabilitation Department * Consult Note - Carlos Veloz MD - 04/18/2016 11:12 PM EST Orthopaedic Surgery Consult Note Attending: Magdiel Transferred from: The patient was transferred from [facility]. I have been asked by Zenia Mojica [...] leg and ambulating so he went to [facility] for evaluation. CT showed swelling concerning for hematoma vs mass. He had a slight fever and WBC 13 so there was concern for infectious etiology. I was contacted for transfer; however, due to uncertainty of definitive orthopaedic issue, I recommended transfer to ER for further evaluation. Transferring provider wanted MRI, so patient was sent to [facility] for further evaluation and MRI. On arrival, [...] Take 100 mg by mouth daily. ??? Rdis-Hzytha-ElijhfBhhh-D3-C-Mn (OAGRWQNKNJM-WMJPHUYWDUX-BIK D3) 500-400-667 mg-mg-unit Cap Take1 tablet by mouth daily. ??? multivitamin with minerals (THERA-M) 9-0.4 mg tablet Take 1 tablet by mouth daily. Family History: Negative for bleeding/clotting disorders or anesthetic complications. 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 Please call Ortho resident vice president [employer] with any questions or concerns. Ila Dominguez MD Orthopaedic Surgery #[id number] I discussed the patient and the plan [...] 04/18/2016 9:10 PM EST Patient seen in [facility] ER today for c/o right hip/thigh/groin [...] history and physical examination. Zenia Mojica MD IMG MRI ORDERABLES * XR Pelvis (Generic) (04/19/2016 [...] visualized pelvis or hips. Zenia Mojica MD IMG DX ORDERABLES * CT Angiogram Lower Extremity [...] Noncontrast CT of the pelvis performed at [facility] on 04/18/2016 at 1606 hours. FINDINGS: Ill-defined [...] the intravenous administration of 110 cc of [id number]. Imaging was obtained in the arterial and venous phases. COMPARISON: Noncontrast CT of the pelvis performed at [facility] on 04/18/2016 [id number] hours. FINDINGS: Ill-defined hyperdense lesion within the [...] 10:35 PM EST) Neutrophil % 71.7 % [facility] Neutrophil Absolute 8.25(H) 1.70 - 6.10 x10(3)/[facility] Lymph % 18.9 % [facility] Lymphocytes Abs 2.2 0.9 - 3.2 x10(3)/[facility] Monocyte % 7.8 % [facility] Monocyte Abs 0.9 0.3 - 0.9 x10(3)/[facility] Eos % 0.8 % [facility] Eosinophils Abs 0.1 0.0 - 0.4 x10(3)/[facility] Basophil % 0.4 % [facility] Baso Absolute 0.0 0.0 - 0.1 x10(3)/[facility] Immature Gran % 0.40 % [facility] Comment: Immature granulocytes(IG's)percentage and absolute count will include metamyelocytes, myelocytes, and promyelocytes. Blood smears from CBCs yielding IG's will be scanned manually for concordance. If this scan disagrees with the automated IG or if promyelocytes are noted, a manual differential will be performed. Immature Gran Absolute 0.05(H) 0.00 - 0.04 x10(3)/[facility] Blood specimen (specimen) 04/18/2016 10:35 PM EST 04/18/2016 10:51 PM EST Narrative Resulting Agency Comment Spec In Lab Zenia Mojica MD HEMATOLOGY ORDERABLE S [facility] [place] [address] * (ABNORMAL) Hemogram (04/18/2016 10:35 PM EST) White Blood Cell 11.5(H) 4.0 - 9.5 x10(3)/[facility] Red Blood Cell 4.57(L) 4.58 - 5.54 x10(6)/mc L [facility] Hemoglobin 15.1 13.7 - 16.5 gm/dL [facility] Hematocrit 42.7 40.5 - 48.5 % [facility] Mean Cell Volume 93.4(H) 82.9 - 93.1 fL [facility] Mean Cell Hemoglobin 33.0(H) 27.5 - 32.1 pg [facility] Mean Cell Hemoglobin Concentration 35.4 32.0 - 35.7 gm/dL [facility] Platelet 209 145 - 357 x10(3)/mc L [facility] RDW Standard Deviation 40.7 36.0 - 45.0 [facility] RDW coefficient of variation 11.8 11.4 - 13.8 % [facility] Mean Platelet Volume 11.5 7.6 - 12.9 [facility] NRBC% auto 0.0 % [facility] NRBC Absolute 0.000 0.000 - 0.000 x10(3)/mc L [facility] Blood specimen (specimen) 04/18/2016 10:35 PM EST 04/18/2016 10:51 PM EST Narrative Resulting Agency Comment Spec In Lab Zenia Mojica MD HEMATOLOGY ORDERABLE S [facility] [place] [address] * CK (04/18/2016 10:35 PM EST) Creatine Kinase 58 0 - 200 unit/L [facility] Blood specimen (specimen) 04/18/2016 10:35 PM EST 04/18/2016 10:51 PM EST Narrative Resulting Agency Comment Spec In Lab Zenia Mojica MD CHEMISTRY ORDERABLES [facility] [place] [address] * (ABNORMAL) CRP, acute inflammation (04/18/2016 10:35 PM EST) C-Reactive Protein 6.0(H) <=4.9 mg/L [facility] Blood specimen (specimen) 04/18/2016 10:35 PM EST 04/18/2016 10:51 PM EST Narrative Resulting Agency Comment Spec In Lab Zenia Mojica MD CHEMISTRY ORDERABLES Performing Organization Address [facility] Co de Phone Number [facility] [place] [address] * Sedimentation rate (04/18/2016 10:35 PM EST) Pathologist [facility] Sedimentation Rate Automated 2 0 - 15 mm/hr [facility] Blood specimen (specimen) 04/18/2016 10:35 PM EST 04/18/2016 10:51 PM EST Narrative Resulting Agency Comment Spec In Lab Zenia Mojica MD HEMATOLOGY ORDERABLE S Performing Organization Address [facility] Co de Phone Number [facility] [place] [address] * APTT (04/18/2016 10:35 PM EST) Partial Thromboplastin Time 27 25 - 35 sec [facility] Comment: The recommended therapeutic range for full dose, unfractionated heparin at [facility] is 80 ? 114 seconds. The use of the anti-Xa (heparin) level rather than the PTT is recommended for monitoring anticoagulation intensity in critically ill patients receiving unfractionated heparin by continuous IV infusion. Blood specimen (specimen) 04/18/2016 10:35 PM EST 04/18/2016 10:51 PM EST Narrative Resulting Agency Comment Spec In Lab Zenia Mojica MD HEMATOLOGY ORDERABLE S Performing Organization Address [facility]/ZIP Co de Phone Number [facility] [place] [address] * Prothrombin Time (04/18/2016 10:35 PM EST) Pathologist [facility] Prothrombin Time 13.1 12.0 - 15.0 sec [facility] Comment: An INR <2.0 indicates [...] International Normalization Ratio 1.0 0.9 - 1.1 [facility] Blood specimen (specimen) 04/18/2016 10:35 PM EST 04/18/2016 10:51 PM EST Narrative Resulting Agency Comment Spec In Lab Zenia Mojica MD HEMATOLOGY ORDERABLE S Performing Organization Address City/State/[facility] Co de Phone Number [facility] [place] [address] * (ABNORMAL) Basic Metabolic Panel (non-fasting) (04/18/2016 10:35 PM EST) [facility] Glucose 112 65 - 199 mg/dL [facility] Comment:Diabetes: >=200 mg/d L plus symptoms Blood Urea Nitrogen 8(L) 10 - 20 mg/dL [facility] Creatinine 0.64(L) 0.80 - 1.50 mg/dL [facility] Comment: Please note that the pediatric reference intervals supplied above were not validated at [facility]. Results from pediatric patients should be interpreted in conjunction to the patient's age, height and muscle mass. Sodium 138 135 - 145 mmol/L [facility] Potassium 3.5 3.5 - 5.0 mmol/L [facility] Comment: Please note: ??Patients with WBC >100,000 may have falsely elevated Potassium levels. ??For accurate Potassium quantification in these patients send serum separator tube (gold top) for subsequent determinations. ??Contact the Clinical Chemistry Laboratory if there are any questions. Chloride 100 98 - 107 mmol/L [facility] Carbon Dioxide 27 22 - 31 mmol/L [facility] Anion Gap 11 5 - 15 mmol/L [facility] Calcium 8.7 8.5 - 10.5 mg/dL [facility] Est Glomerular Filtration Rate >60 >=60 [facility] Comment: This estimated GFR [...] the following links into your internet browser. [email or web address] Blood specimen (specimen) 04/18/2016 10:35 PM EST 04/18/2016 10:51 PM EST Narrative Resulting Agency Comment Spec In Lab Zenia Mojica MD CHEMISTRY ORDERABLES Performing Organization Address City/[facility] Co de Phone Number [facility] [place] [address] * Urine Hold (04/18/2016 10:21 PM EST) Hold, Urine Sample in lab. [facility] Urine specimen (specimen) Urine / Unknown 04/18/2016 10:21 PM EST 04/18/2016 10:50 PM EST Zenia Mojica MD URINE ORDERABLES Performing Organization Address City/[facility]/ZIP Co de Phone Number [facility] [place] [address] * Urinalysis with reflex Culture (04/18/2016 10:21 PM EST) Glucose, Urine Dipstick Negative Negative mg/dL [facility] Protein, Urine Dipstick Negative Negative mg/dL [facility] Bilirubin, Urine Dipstick Negative Negative mg/dL [facility] Comment: Clinical correlation required for positive Urine Bilirubin results as false positive may occur with some drugs and drug related products. If a false positive is suspected a serum total bilirubin should be considered if clinically indicated. Urobilinogen, Urine Dipstick Normal Normal mg/dL [facility] pH, Urn (dipstick) 7.0 5.0 - 8.0 [facility] Blood, Urine Dipstick Negative Negative mg/dL [facility] Ketone, Urine Dipstick Negative Negative mg/dL [facility] Nitrite, Urine Dipstick Negative Negative [facility] Leukocytes, Urine Dipstick Negative Negative [facility] Appearance, Urine Dipstick Clear Clear [facility] Specific [place] Urine Automated 1.004 1.002 - 1.030 [facility] Color, Urine Dipstick Straw Yellow [facility] RBC, Urine <1 0 - 3 /HPF [facility] WBC, Urine Not Present 0 - 3 /HPF [facility] Reflex to Culture No [facility] Urine specimen (specimen) 04/18/2016 10:21 PM EST 04/18/2016 10:49 PM EST Narrative Resulting Agency Comment Spec In Lab Zenia Mojica MD URINE ORDERABLES [facility] [place] [address] documented in this encounter Visit Diagnoses Diagnosis [...] 1,000 mg, Oral, ONCE, 1 dose, On Juidth 04/19/16 at 0603, Maximum dose of acetaminophen [...] 1 dose, On Sat04/19/16 at 0612, STAT 0614 (Given - Provid er: Dorcas Linton RN) LORazepam (ATIVAN) injection 1 mg (COMPLETED) 1 mg, Intravenous, ONCE, 1 dose, On Sat04/19/16 at 1001, Prior to MRI, STAT 1057 (Given - Provid er: Keysha Rajptu RN) morphine 4 mg/mL carpuject 4 mg [...] dose, Starting on Sat04/19/16 at 1220, Until Judith 04/19/16 at 1220, Per Protocol, Routine 1220 (Given - Provid er: Minerva Solis) iohexol (OMNIPAQUE) 350 mg/mL solution 38,500 mg (COMPLETED) 38,500 mg (110 mL), Intravenous, ONCE PRN, 1 dose, Starting on Sat04/19/16 at 0100, Until Judith 04/19/16 at 0050, Per Protocol, Routine 0050 (Given - Provid er: Philip Padron) documented in this encounter
--- OUTSIDE RECORDS SUMMARY | 2023-10-21 02:42 | XMS_ITS | Encounter Summary ---
Author Organization [facility] [place] [address] Care Team Providers Care County Court Judge Name Role Phone Mirian Malcolm MD Primary Care Provider [phone] Encounter Details Date Type Department Care Team (Late st Contact Info) Description 08/13/2018 2:30 AM EDT Ancillary Procedure [place] [id number] Social History Tobacco Use Types Packs/Day Years [...] Abdomen Pelvis (08/13/2018 2:27 AM EDT) Narrative RAD - 08/13/2018 2:27 AM EDT This exam is auto-finalizing. It's purpose is for storage only. Williams Bridges MD IMG FILM LIBRARY ORD ERABLES [place], [place] documented in this encounter Visit Diagnoses Not on filedocumented in this encounter Care Teams County Court Judge Relationship Specialty Start Date End Date Mirian Malcolm MD [address] [place] [address] PCP - General Family Medicine 08/13/18 documented as of this encounter
--- OUTSIDE RECORDS SUMMARY | 2023-10-21 02:42 | XMS_ITS | Encounter Summary ---
Author Organization [facility] [place] [address] Care Team Providers Care Commercial Lawn Specialist Name Role Phone Cristian Mei MD Primary Care Provider [phone] Reason for Visit * Reason Comments Varicose Veins Encounter Details Date Type Department Care Team (Late st Contact Info) Description 05/26/2013 7:20 AM EDT Office [place] [address] Cash Child MD [facility] [place] [address] Numbness of foot (Primary Dx) Discharge Disposition: [...] Other Past Medical History/Risk Factors: (n) Previous LA (n) Angina (n) CHF (n) Arrythmia (n) [...] by mouth daily., Disp: , Rfl: ; Ipmo-Xesfrz-XzjvghBohl-D3-C-Mn (HXULSUHLFBM-KOIJXJQIYGH-KCM D3) 500-400-667 mg-mg-unit Cap, Take 1 tablet [...] sensation documented in this encounter Care Teams Commercial Lawn Specialist Relationship Specialty Start Date End Date Cristian Mei MD [facility] [address] [place] [address] PCP - General 04/30/13 02/25/15 documented as of this encounter
--- OUTSIDE RECORDS SUMMARY | 2023-10-21 02:42 | XMS_ITS | Encounter Summary ---
Author Organization [facility] [place] [address] Care Team Providers Care Store Operations Specialist Name Role Phone Monica Paige Primary Care Provider [phone] Encounter Details Date Type Department Care Team (Late st Contact Info) Description 02/20/2018 Orders Only Vascular Surgery at [facility] [place] [address] Brittny Victor, RECOVERER Screening for AAA (abdominal aortic aneurysm) Social [...] conditions documented in this encounter Care Teams Store Operations Specialist Relationship Specialty Start Date End Date Monica Paige PA [address] [place] [address] PCP - General Family Medicine 05/14/16 08/12/18 documented as of this encounter
--- OUTSIDE RECORDS SUMMARY | 2023-10-21 02:42 | XMS_ITS | Encounter Summary ---
Author Organization [facility] [place] [address] Care Team Providers Care Retail Account Manager Name Role Phone Monica Paige Primary Care Provider [phone] Reason for Visit * Reason Onset Date Comments Other 09/10/2016 Recall Encounter Details Date Type Department Care Team (Late st Contact Info) Description 09/10/2016 Telephone Vascular Surgery at [facility] [place] [id number] Tameka Ramos Other (Recall) Social History Tobacco [...] filedocumented in this encounter Care Teams Retail Account Manager Relationship Specialty Start Date End Date Monica Paige PA [address] [place] [address] PCP - General Family Medicine 05/14/16 08/12/18 documented as of this encounter
--- OUTSIDE RECORDS SUMMARY | 2023-10-21 02:42 | XMS_ITS | Encounter Summary ---
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 Performing Organization Address City/State/[facility] Co de Phone Number [place], [place] * EKG 12 Lead (08/13/2018 10:00 AM EDT) Ventricular rate 68 BPM MUSE SYSTEM Atrial Rate 68 BPM MUSE SYSTEM P-R Interval 178 ms MUSE SYSTEM QRS Duration 80 ms MUSE SYSTEM Q-T Interval 410 ms MUSE SYSTEM QTC Calculated (Bezet) 435 ms MUSE SYSTEM Calculated P Nickerson 49 degrees MUSE SYSTEM Calculated R Nickerson 29 degrees MUSE SYSTEM Calculated T Nickerson 62 degrees MUSE SYSTEM INTERPRETATION Normal sinus [...] below. ? Electronically signed by: Brianne Hathaway [facility] ([phone]), at 08/13/2018 6:47 AM Narrative 08/13/2018 6:47 [...] number below. Electronically signed by: Brianne Hathaway [facility]([phone]), at 08/13/2018 6:47 AM Caesar Shirley MD [...] below. ? Electronically signed by: Brianne Hathaway [facility] ([phone]), at 08/13/2018 8:13 AM Narrative 08/13/2018 8:13 [...] performed with intravenous contrast. Study performed at [facility] at 0111 hours, August 13, [...] pelvis performed with [facility]. [facility], [facility] 13, [...] number below. Electronically signed by: Brianne Hathaway [facility]([phone]), at 08/13/2018 8:13 AM Caesar Shirley MD [...] below. ? Electronically signed by: Brianne Hathaway [facility] ([phone]), at 08/13/2018 7:57 AM Narrative 08/13/2018 7:57 [...] Omnipaque 350 was used. Study performed at [facility] at 0111 hours, August 13, [...] of Omnipaque 350 [facility]. [facility], August 13, [...] number below. Electronically signed by: Brianne Hathaway [facility]([phone]), at 08/13/2018 7:57 AM Caesar Shirley MD [...] number below. ? Electronically signed by: DAGO Rai [facility] ([phone]), at 08/13/2018 8:04 AM Narrative 08/13/2018 8:04 [...] without with intravenous contrast. Study performed at [facility] at 0055 hours, August [...] performed withoutwith intravenous contrast. Study performed at [facility] at 0055 hours, August 13, 2018 [...] number below. Electronically signed by: Brianne Hathaway [facility]([phone]), at 08/13/2018 8:04 AM Caesar Shirley MD IMG OUTSIDE INTER PRETATION ORDERABLES * EKG 12 Lead (08/13/2018 5:35 AM EDT) Ventricular rate 63 BPM MUSE SYSTEM Atrial Rate 63 BPM MUSE SYSTEM P-R Interval 184 ms MUSE SYSTEM QRS Duration 94 ms MUSE SYSTEM Q-T Interval 438 ms MUSE SYSTEM QTC Calculated (Bezet) 448 ms MUSE SYSTEM Calculated P Nickerson 60 degrees MUSE SYSTEM Calculated R Nickerson 30 degrees MUSE SYSTEM Calculated T Nickerson 52 degrees MUSE SYSTEM INTERPRETATION Normal sinus rhythm Nonspecific T wave abnormality Abnormal ECG No previous ECGs available Confirmed by MD SHETH BRUCE ([id number]) on 08/13/2018 6:22:28 PM MUSE SYSTEM 08/13/2018 5:35 AM EDT 08/13/2018 6:22 PM EDT Caesar Shirley MD ECG ORDERABLES MUSE SYSTEM * ABORH Recheck Status (08/13/2018 5:33 AM EDT) ABORH Recheck Order Order Placed [facility] ABORH Type Recheck Complete [facility] Blood specimen (specimen) 08/13/2018 5:33 AM EDT 08/13/2018 5:33 AM EDT Narrative Resulting Agency Comment Spec In Lab Camila Uriarte MD BLOOD BANK LAB ORDER ISAMAR Performing Organization Address City/[facility]/ZIP Co de Phone Number [facility] [place] [address] * Antibody screen (08/13/2018 5:33 AM EDT) Ab Screen Interp Negative [facility] Expires at [id number] on: 08/16/2018 [facility] Blood specimen (specimen) 08/13/2018 5:33 AM EDT 08/13/2018 5:33 AM EDT Narrative Resulting Agency Comment Spec In Lab Camila Uriarte MD BLOOD BANK LAB ORDER ISAMAR Performing Organization Address City/[facility]/ZIP Co de Phone Number [facility] [place] [address] * ABO/Rh Typing (08/13/2018 5:33 AM EDT) ABORH Type O Pos [facility]OR[facility]ORY Blood specimen (specimen) 08/13/2018 5:33 AM EDT 08/13/2018 5:33 AM EDT Narrative Resulting Agency Comment Spec In Lab Camila Uriarte MD BLOOD BANK LAB ORDER ISAMAR [facility] [place] [address] * Alaniz Tube Hold (08/13/2018 5:15 AM EDT) Alaniz Hold Sample in lab. [facility] Blood specimen (specimen) Venous Draw / Unknown 08/13/2018 5:15 AM EDT 08/13/2018 5:32 AM EDT Camila Uriarte MD CHEMISTRY ORDERABLES Performing Organization Address City/[facility]/ZIP Co de Phone Number [facility] [place] [address] * Gold Tube HOLD (08/13/2018 5:15 AM EDT) Gold Hold Sample in lab. [facility] Blood specimen (specimen) Venous Draw / Unknown 08/13/2018 5:15 AM EDT 08/13/2018 5:32 AM EDT Camila Uriarte MD CHEMISTRY ORDERABLES Performing Organization Address City/[facility]/ZIP Co de Phone Number [facility] [place] [address] * (ABNORMAL) Differential, Automated (08/13/2018 5:15 AM EDT) Pathologist [facility] Neutrophil % 83.7 % [facility] Neutrophil Absolute 14.46(H) 1.70 - 6.10 x10(3)/mc L [facility] Lymph % 9.4 % [facility] Lymphocytes Abs 1.6 0.9 - 3.2 x10(3)/mc L [facility] Monocyte % 5.6 % [facility] Monocyte Abs 1.0(H) 0.3 - 0.9 x10(3)/mc L [facility] Eos % 0.2 % [facility] Eosinophils Abs 0.0 0.0 - 0.4 x10(3)/mc L [facility] Basophil % 0.3 % [facility] Baso Absolute 0.1 0.0 - 0.1 x10(3)/ L [facility] Immature Gran % 0.80 % [facility] Comment: Immature granulocytes(IG's)percentage and absolute count will include metamyelocytes, myelocytes, and promyelocytes. Blood smears from CBCs yielding IG's will be scanned manually for concordance. If this scan disagrees with the automated IG or if promyelocytes are noted, a manual differential will be performed. Immature Gran Absolute 0.14(H) 0.00 - 0.04 x10(3)/ L [facility] Blood specimen (specimen) 08/13/2018 5:15 AM EDT 08/13/2018 5:31 AM EDT Narrative Resulting Agency Comment Spec In Lab Camila Uriarte MD HEMATOLOGY ORDERABLE S Performing Organization Address City/State/[facility] Co de Phone Number [facility] [place] [address] * (ABNORMAL) Hemogram (08/13/2018 5:15 AM EDT) White Blood Cell 17.3(H) 4.0 - 9.5 x10(3)/[facility] LABORATORY Red Blood Cell 4.64 4.58 - 5.54 x10(6)/ L [facility] Hemoglobin 15.2 13.7 - 16.5 gm/dL [facility] Hematocrit 44.9 40.5 - 48.5 % [facility] Mean Cell Volume 96.8(H) 82.9 - 93.1 fL [facility] Mean Cell Hemoglobin 32.8(H) 27.5 - 32.1 pg [facility] Mean Cell Hemoglobin Concentration 33.9 32.0 - 35.7 gm/dL [facility] Platelet 219 145 - 357 x10(3)/ L [facility] RDW Standard Deviation 42.9 36.0 - 45.0 fL [facility] RDW coefficient of variation 12.0 11.4 - 13.8 % [facility] Mean Platelet Volume 12.2 7.6 - 12.9 fL [facility] NRBC% auto 0.0 % [facility] NRBC Absolute 0.000 0.000 - 0.000 x10(3)/mc L [facility] Blood specimen (specimen) 08/13/2018 5:15 AM EDT 08/13/2018 5:31 AM EDT Narrative Resulting Agency Comment Spec In Lab Camila Uriarte MD HEMATOLOGY ORDERABLE S Performing Organization Address [facility] Co de Phone Number [facility] [place] [address] * APTT (08/13/2018 5:15 AM EDT) Partial Thromboplastin Time 29 25 - 37 sec [facility] Comment: The PTT is NOT appropriate for heparin monitoring. Use the Anti-Xa level for heparin monitoring (HEP UFH) or LMWH monitoring (HEP LMW). A PTT less than 37 seconds generally indicates adequate hemostasis. Blood specimen (specimen) 08/13/2018 5:15 AM EDT 08/13/2018 5:31 AM EDT Narrative Resulting Agency Comment Spec In Lab Caesar Shirley MD HEMATOLOGY ORDERA BLES Performing Organization Address [facility] Co de Phone Number [facility] [place] [address] * Prothrombin Time (08/13/2018 5:15 AM EDT) Prothrombin Time 10.7 9.4 - 12.5 sec [facility] International Normalization Ratio 0.9 [facility] Comment: An INR <2.0 [...] Lab Caesar Shirley MD HEMATOLOGY ORDERA BLES [facility] [place] [address] * (ABNORMAL) Basic Metabolic Panel (non-fasting) (08/13/2018 5:15 AM EDT) Glucose 142 65 - 199 mg/dL [facility] Comment:Diabetes: >=200 mg/d L plus symptoms Blood Urea Nitrogen 12 10 - 20 mg/dL [facility] Creatinine 0.67(L) 0.80 - 1.50 mg/dL [facility] Sodium 139 135 - 145 mmol/L [facility] Potassium 3.6 3.5 - 5.0 mmol/L [facility] Comment: Please note: ??Patients with WBC >100,000 may have falsely elevated Potassium levels. ??For accurate Potassium quantification in these patients send serum separator tube (gold top) for subsequent determinations. ??Contact the Clinical Chemistry Laboratory if there are any questions. Chloride 102 98 - 107 mmol/L [facility] Carbon Dioxide 23 22 - 31 mmol/L [facility] Anion Gap 14 5 - 15 mmol/L [facility] Calcium 8.2(L) 8.5 - 10.5 mg/dL [facility] Est Glomerular Filtration Rate 113 >=60 mL/min/1. 73 m?? [facility] Comment: The eGFR was calculated using the CKD-EPI equation. As with all creatinine based estimates of kidney function, eGFR values calculated with the CKD-EPI equation are not accurate in patients with acute kidney failure, extremes of body mass or the acutely ill. [email or web address] eGFR 131 >=60 mL/min/1. 73 m?? [facility] Comment: The eGFR was calculated using the CKD-EPI equation. As with all creatinine based estimates of kidney function, eGFR values calculated with the CKD-EPI equation are not accurate in patients with acute kidney failure, extremes of body mass or the acutely ill. [email or web address] Blood specimen (specimen) 08/13/2018 5:15 AM EDT 08/13/2018 5:31 AM EDT Narrative Resulting Agency Comment Spec In Lab Caesar Shirley MD CHEMISTRY ORDERAB LES Performing Organization Address [facility] Co de Phone Number [facility] [place] [address] * Film Library- Storage Only DX Lower Extremity (08/13/2018 2:34 AM EDT) Narrative [facility] - 08/13/2018 2:34 AM EDT This exam is auto-finalizing. It's purpose is for storage only. Williams Bridges MD [facility] FILM LIBRARY ORD ERABLES Performing Organization Address [facility] de Phone Number [place], [place] * Film Library- Storage Only CT Head And Spine (08/13/2018 2:31 AM EDT) Narrative [facility] - 08/13/2018 2:31 AM EDT This exam is auto-finalizing. It's purpose is for storage only. Williams Bridges MD [facility] FILM LIBRARY ORD ERABLES Performing Organization Address [facility] de Phone Number [place], [place] * Film Library- Storage Only CT Spine (08/13/2018 2:28 AM EDT) Narrative [facility] - 08/13/2018 2:28 AM EDT This exam is auto-finalizing. It's purpose is for storage only. Williams Bridges MD [facility] FILM LIBRARY ORD ERABLES Performing Organization Address [facility] de Phone Number [place], [place] * Film Library- Storage Only CT Chest Abdomen Pelvis (08/13/2018 2:27 AM EDT) Narrative [facility] - 08/13/2018 2:27 AM EDT This exam is auto-finalizing. It's purpose is for storage only. Williams Bridges MD IMG FILM LIBRARY ORD ERABLES SERG Negro documented in this encounter Visit Diagnoses Not [...] Reason: Patient/family refused)1333 (Given - Provider: Garcia Trivedi, ARNOL)2200 (Not Given - Provider: Caesar Avendano - [...] Adt) 0812 (Given - Provider: Garcia Trivedi, ARNOL) 0900 (Not Given - Provider: Zenia Romo, ARNOL - Reason: See comment - Comment: BP 118/64) atorvastatin (LIPITOR) tablet 10 mg 10 mg, Oral, DAILY, First dose on Sat08/14/18 at 0900, Until Discontinued, Routine 1506 (APR Hold - Provider: Admin Adt - Reason: Transfer to a Procedural area)2127 (MAR Unhold - Provider: Admin Adt) 0812 (Given - Provider: Garcia Trivedi RN) 0958 (Given - Provider: Zenia Romo, RN) ceFAZolin (ANCEF) 2g in dextrose 5% 100 mL (CANCELED) 2 g, Intravenous, EVERY 8 HOURS, First dose on Sat08/13/18 at 0947, Until Discontinued, Administer over 30 Minutes, Indication for (Active or Suspected): Prophylaxis 1033 (New Bag - Provider: Naya Poe RN)1116 (Stopped - Provider: Naya Poe RN)1506 (APR Hold - Provider: Admin Adt - Reason: Transfer to a Procedural area)1747 (Automatically Held - Provider: Admin Adt)1814 ([facility] Unhold - Provider: Admin Adt) ceFAZolin (ANCEF) [...] Garcia Trivedi RN)1047 (Stopped - Provider: Garcia Trivedi RN)1705 (New Bag - Provider: Garcia Trivedi RN)1735 (Stopped - Provider: Garcia Trivedi RN) enoxaparin (LOVENOX) injection 40 mg (COMPLETED) 40 mg, Subcutaneous, ONCE, 1 dose, On Sat08/15/18 at 1500, Routine 1704 (Given - Provider: Zenia Romo, ARNOL) folic acid (FOLVITE) tablet 1,000 mcg 1,000 mcg (1 mg), Oral, DAILY, First dose on Sat08/14/18 at 0900, Until Discontinued, Routine 0812 (Given - Provider: Garcia Trivedi RN) 0958 (Given - Provider: Zenia Romo, RN) gabapentin (NEURONTIN) capsule 900 mg 900 mg, [...] not available - Comment: have not received [facility])1358 (Given - Provider: Kellie Alvarez RN)1506 (APR Hold - Provider: Admin Adt - Reason: Transfer to a Procedural area)2126 ([facility] Unhold - Provider: Admin Adt) 0811 (Given - Provider: Garcia Trivedi RN) 0900 (Not Given - Provider: Zenia Romo RN - Reason: See comment - Comment: BP 118/64) lisinopril (PRINIVIL;ZESTRIL) tablet 20 mg 20 mg, Oral, DAILY, First dose on Sat08/14/18 at 0900, Until Discontinued, Routine 1506 (APR Hold - Provider: Admin Adt - Reason: Transfer to a Procedural area)2126 ([facility] Unhold - Provider: Admin Adt) 0811 (Given [...] 1 tablet, Oral, DAILY, First dose on Judith /20/19 at 0900, Until Discontinued, Routine 0812 (Given - Provider: Garcia Trivedi RN) 0959 (Given - Provider: Zenia Romo, ARNOL) nicotine (NICODERM CQ) 14 mg/24 hr patch 14 mg (COMPLETED) 14 mg (1 patch), Transdermal, Administer over 24 Hours, ONCE, 1 dose, On Sat08/13/18 at 0355, STAT 0403 (Given - Provider: Naya Poe RN) nicotine (NICODERM CQ) 14 mg/24 hr [...] patch 1156 (Patch Removed - Provider: Zenia Romo RN) nicotine (NICODERM CQ) 14 mg/24 hr patch Patch Verification(Linked Group 1) Transdermal, 2 TIMES DAILY, 2 doses, First dose on Sat08/14/18 at 2300, Last dose on Sat08/15/18 at 0900, Verify nicotine 14 mg/24 hr patch. 2300 (Patch (dose and location) verified - Provider: Caesar Avendano) 0900 (Patch (dose and location) verified - Provider: Zenia Romo RN) polyethylene glycol (MIRALAX) packet 17 g 17 g, Oral, 2 TIMES DAILY, First dose on Sat08/13/18 at 0948, Until Discontinued, Routine 0948 (Not Given - Provider: Naya Poe RN - Reason: NPO)1506 (MAR Hold - Provider: Admin Adt - Reason: Transfer to a Procedural area)2100 (Automatically Held - Provider: Admin Adt)2127 (MAR Unhold - Provider: Admin Adt) 0811 (Given - Provider: Garcia Trivedi RN)2034 (Given - Provider: Caesar Avendano) 0959 (Given - Provider: Zenia D Demetrius, RN) senna-docusate (PERICOLACE) 8.6-50 mg per tablet [...] area)2099 (Automatically Held - Provider: Admin Adt)2126 (MAR [...] (New Bag - Provider: Naya Poe RN)1506 (APR Hold - Provider: Admin Adt - Reason: Transfer to a Procedural area)1656 (Anesthesia Volume Adjustment - Provider: Bg Moran CRNA)1814 ([facility] Unhold - Provider: Avril Nielsen RN) PRN Medication Order 08/13/2018 08/14/2018 08/15/2018 cyclobenzaprine (FLEXERIL) tablet 10 mg 10 mg, Oral, 3 TIMES DAILY PRN, Starting on Sat08/13/18 at 0945, Until Sat08/15/18 at 2038, Muscle spasms, Routine 1506 (APR Hold - Provider: Admin Adt - Reason: Transfer to a Procedural area)1814 ([facility] Unhold - Provider: Avril Nielsen RN) fentaNYL [...] Naya Poe, ARNOL)1320 (Given - Provider: Naya Poe RN)1356 (Given - Provider: Kellie Alvarez RN)1506 ([facility] Hold - Provider: Admin Adt - Reason: Transfer to a Procedural area)2126 ([facility] Unhold - Provider: Admin Adt) HYDROmorphone (DILAUDID) [...] area)2126 (APR Unhold - Provider: Admin Adt) oxyCODONE [...] Adt - Reason: Transfer to a Procedural area)181 (APR Unhold - Provider: Avril Nielesn RN)222 (See Alternative - Provider: Caesar Avendano) 0811 [...] pain not relieved, call provider., Routine 1506 (MAR Hold - Provider: Admin Adt - Reason: Transfer to a Procedural area)1814 (MAR Unhold - Provider: Avril Nielsen RN)2222 (See [...] pain not relieved, call provider, Routine 1506 (MAR Hold - Provider: Admin Adt - Reason: Transfer to a Procedural area)1814 (MAR Unhold - Provider: Avril Nielsen RN)2222 (Given - Provider: Caesar Avendano) 0811 (See Alternative - Provider: Garcia Trivedi, RN)1222 (See Alternative - Provider: Garcia Trivedi, RN)1621 (See Alternative - Provider: Garcia Trivedi, RN)2036 (See Alternative - Provider: Caesar Avendano) 0616 (See Alternative - Provider: Caesar Avendano)1018 (See Alternative - Provider: Zenia Romo, RN)1444 (See Alternative - Provider: Zenia Romo, RN) sodium chloride 0.9 % (flush) flush [...] 4 HOURS PRN, Starting on Sat08/13/18 at 2210, Until Sat08/15/18 at 2038, alcohol/benzodiazepine withdrawal- uncomplicated, [...] Routine documented in this encounter Care Teams Paster Supervisor Relationship Specialty Start Date End Date Mirian Malcolm MD [address] [place] [address] PCP - General Family Medicine 08/13/18 documented as of this encounter
--- OUTSIDE RECORDS SUMMARY | 2023-10-21 02:42 | XMS_ITS | Encounter Summary ---
Author Organization [facility] Address [facility] [place] [address] Care Team Providers Care Motor Inspection Mechanic Name Role Phone Monica Paige Primary Care Provider [phone] Reason for Visit * Consultation (Urgent) - Specialty Diagnoses / Procedures Referred By Giles girard Referred To Contact Vascular Surgery Diagnoses bleeding varicose veins Procedures bleeding varicose veins Quang Montesinos, [facility] [address] [place] [address] [place] [address] [facility] [address] [place] [address] Referral ID Status Reason Start Date Expiration Date V isits Requested Visits Authorized [id number] Consult, Test & Treat 02/19/2018 02/19/2019 2 2 Encounter Details Date Type Department Care Team (Late st Contact Info) Description 02/20/2018 9:00 AM EST Tech [place] [address] [place], [place], [place] Bleeding from varicose vein Social History [...] Text Report Department: Vascular Surgery Lab Patient: [id number] ([place]) CPT: 35077 ICD10: I83.899;I83.813;I8 7.2 Referring Physician: RAÚL FARMER [...] complications documented in this encounter Care Teams Motor Inspection Mechanic Relationship Specialty Start Date End Date Monica Paige PA [address] [place] [id number] PCP - General Family Medicine 05/14/16 08/12/18 documented as of this encounter
--- OUTSIDE RECORDS SUMMARY | 2023-10-21 02:42 | XMS_ITS | Encounter Summary ---
Author Organization [facility] Address [facility] [place] [address] Care Team Providers Care Food Processing Plant Manager Name Role Phone Mirian Malcolm MD Primary Care Provider [phone] Encounter Details Date Type Department Care Team (Late st Contact Info) Description 08/13/2018 7:30 AM EDT Ancillary Procedure [facility] [place] [id number] Social History Tobacco Use Types Packs/Day Years [...] filedocumented in this encounter Care Teams Food Processing Plant Manager Relationship Specialty Start Date End Date Mirian Malcolm MD [address] [place] [address] PCP - General Family Medicine 08/13/18 documented as of this encounter
--- OUTSIDE RECORDS SUMMARY | 2023-10-21 02:42 | XMS_ITS | Encounter Summary ---
Author Organization [facility] Address [facility] [place] [address] Care Team Providers Care Backend Tester Name Role Phone Monica Paige Primary Care Provider [phone] Reason for Visit * Consultation (Routine) - Closed Specialty Diagnoses / Procedures Referred By Giles t Referred To Contact Neurology Diagnoses B LE neuropathy- pls try to coord with Vasc appt Monica Paige PA [address] [place] [address] [facility] [address] [place] [address] Referral ID Status Reason Start Date Expiration Date V isits Requested Visits Authorized [id number] Closed Connection Center 05/14/2016 05/14/2017 1 1 Encounter Details Date Type Department Care Team (Late st Contact Info) Description 06/27/2016 8:00 AM EDT [place] [phone] Cassy Lorenz MD [facility] [place] [address] Neuropathy Social History Tobacco Use Types Packs/Day [...] Romberg negative. 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 [...] MD CHEMISTRY ORDERABLE S Performing Organization Address City/[facility]/ZIP Co de Phone Number [facility] [place] [address] * Immunofixation Electrophoresis (06/27/2016 9:31 AM EDT) [facility] Immunofixation Interpretation See Note [facility] Comment: GOKUL shows no evidence of a monoclonal immunoglobulin. Jermaine Anand MD 06/28/16 [facility] Pathology Please see scanned report in Chart Review under the [facility] Laboratory Heading. Blood specimen (specimen) Venous Draw / Unknown 06/27/2016 9:31 AM EDT 06/27/2016 10:04 AM EDT Narrative Resulting Agency Comment Spec In Lab Cassy Lorenz MD CHEMISTRY ORDERABLE S Performing Organization Address [facility] Co de Phone Number [facility] [place] [address] * (ABNORMAL) Differential, Automated (06/27/2016 9:31 AM EDT) [facility] Neutrophil % 70.9 % [facility] Neutrophil Absolute 7.83(H) 1.70 - 6.10 x10(3)/mc L [facility] Lymph % 20.5 % [facility] Lymphocytes Abs 2.3 0.9 - 3.2 x10(3)/mc L [facility] Monocyte % 6.2 % [facility] Monocyte Abs 0.7 0.3 - 0.9 x10(3)/mc L [facility] Eos % 1.4 % [facility] Eosinophils Abs 0.2 0.0 - 0.4 x10(3)/mc L [facility] Basophil % 0.5 % [facility] Baso Absolute 0.1 0.0 - 0.1 x10(3)/mc L [facility] Immature Gran % 0.50 % [facility] Comment: Immature granulocytes(IG's)percentage and absolute count will include metamyelocytes, myelocytes, and promyelocytes. Blood smears from CBCs yielding IG's will be scanned manually for concordance. If this scan disagrees with the automated IG or if promyelocytes are noted, a manual differential will be performed. Immature Gran Absolute 0.05(H) 0.00 - 0.04 x10(3)/mc L [facility] Blood specimen (specimen) 06/27/2016 9:31 AM EDT 06/27/2016 9:38 AM EDT Narrative Resulting Agency Comment Spec In Lab Cassy Lorenz MD HEMATOLOGY ORDERABL ES [facility] [place] [address] * (ABNORMAL) Hemogram (06/27/2016 9:31 AM EDT) White Blood Cell 11.0(H) 4.0 - 9.5 x10(3)/mc L [facility] Red Blood Cell 5.22 4.58 - 5.54 x10(6)/mc L [facility] Hemoglobin 17.2(H) 13.7 - 16.5 gm/dL [...] of variation 11.9 11.4 - 13.8 % [facility] Mean Platelet Volume 11.8 7.6 - 12.9 fL [facility] NRBC% auto 0.0 % [facility] NRBC Absolute 0.000 0.000 - 0.000 x10(3)/mc L [facility] Blood specimen (specimen) 06/27/2016 9:31 AM EDT 06/27/2016 9:38 AM EDT Narrative Resulting Agency Comment Spec In Lab Cassy Lorenz MD HEMATOLOGY ORDERABL ES Performing Organization Address [facility] Co de Phone Number [facility] [place] [address] * TSH (06/27/2016 9:31 AM EDT) Thyroid Stimulating Hormone 0.93 0.27 - 4.20 mcIU/mL [facility] Blood specimen (specimen) 06/27/2016 9:31 AM EDT 06/27/2016 9:38 AM EDT Narrative Resulting Agency Comment Spec In Lab Cassy Lorenz MD CHEMISTRY ORDERABLE S Performing Organization Address [facility] de Phone Number [facility] [place] [address] * Extractable Nuclear Antigen (SHAYE) Ab (06/27/2016 9:31 AM EDT) SHAYE Ab Test ?Result ?Flag ??Unit ??RefValue Ab to Extractable Nuclear Ag Eval,S ??SS-A/Ro Ab, IgG, S ?<0.2 ?U ? <1.0 (Negative) ??SS-B/La Ab, IgG, S ?0.2 ? U ? <1.0 (Negative) ??Sm Ab, IgG, S ? <0.2 ?U ? <1.0 (Negative) ??SERVICE ARCHITECT Ab, IgG, S ?<0.2 ?U ? <1.0 (Negative) ??Scl 70 Ab, IgG, S ? <0.2 ?U ? <1.0 (Negative) ??Larisa 1 Ab, IgG, S ? <0.2 ?U ? <1.0 (Negative) ?Test Performed by: ?[facility] ?[address] [place] [address] [facility] Blood specimen (specimen) 06/27/2016 9:31 AM EDT 06/27/2016 1:00 PM EDT Narrative Resulting Agency Comment Spec In Lab Cassy Lorenz MD LAB SEND OUT DORIS HINES [facility] [place] [address] * MIKEY (06/27/2016 9:31 AM EDT) MIKEY Neg Neg [facility] Blood specimen (specimen) 06/27/2016 9:31 AM EDT 06/27/2016 11:39 AM EDT Narrative Resulting Agency Comment Spec In Lab Cassy Lorenz MD LAB SEND OUT ORDERA BLES Performing Organization Address [facility] Co de Phone Number [facility] [place] [address] * Vitamin B6 (06/27/2016 9:31 AM EDT) Vitamin B6 (JUNE) 15 5 - 50 mcg/L [facility] Comment: ADDITIONAL INFORMATION This test was developed and its performance characteristics determined by [facility] in a manner consistent with CLIA requirements. This test has not been cleared or approved by the U.S. Food and Drug Administration. Test Performed by: [facility] - [address] [address] Blood specimen (specimen) 06/27/2016 9:31 AM EDT 06/27/2016 10:50 AM EDT Narrative Resulting Agency Comment Spec In Lab Cassy Lorenz MD LAB SEND OUT ORDERA BLES Performing Organization Address [facility] Co de Phone Number [facility] [place] [address] * Methylmalonic acid, serum (06/27/2016 9:31 AM EDT) Methylmalonic Acid (JUNE) 0.17 <=0.40 nmol/mL [facility] Comment: ADDITIONAL INFORMATION This test was developed and its performance characteristics determined by [facility] in a manner consistent with CLIA requirements. This test has not been cleared or approved by the U.S. Food and Drug Administration. Test Performed by: [facility] - [address] [address] Blood specimen (specimen) 06/27/2016 9:31 AM EDT 06/27/2016 1:00 PM EDT Narrative Resulting Agency Comment Spec In Lab Cassy Lorenz MD LAB SEND OUT ORDERA BLES Performing Organization Address City/[facility]/ZIP Co de Phone Number [facility] [place] [address] * Vitamin B12 (06/27/2016 9:31 AM EDT) Vitamin B12 497 207 - 974 pg/mL [facility] Blood specimen (specimen) 06/27/2016 9:31 AM EDT 06/27/2016 9:38 AM EDT Narrative Resulting Agency Comment Spec In Lab Cassy Lorenz MD CHEMISTRY ORDERABLE S Performing Organization Address City/[facility] Co de Phone Number [facility] [place] [address] * (ABNORMAL) Protein Electrophoresis, serum (06/27/2016 9:31 [...] ORDERABLE S [facility] [place] [address] * (ABNORMAL) Comprehensive metabolic panel (non-fasting) (06/27/2016 [...] intervals supplied above were not validated at [facility]. Results from pediatric patients should be interpreted [...] the following links into your internet browser. [email or web address] Blood specimen (specimen) 06/27/2016 9:31 AM EDT 06/27/2016 9:38 AM EDT Narrative Resulting Agency Comment Spec In Lab Cassy Lorenz MD CHEMISTRY ORDERABLE S [facility] [place] [address] documented in this encounter Visit Diagnoses Diagnosis Neuropathy Mononeuritis of unspecified site documented in this encounter Care Teams Backend Tester Relationship Specialty Start Date End Date Monica Paige PA [address] [place] [address] PCP - General Family Medicine 05/14/16 08/12/18 documented as of this encounter
--- OUTSIDE RECORDS SUMMARY | 2023-10-21 02:42 | XMS_ITS | Encounter Summary ---
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 ECG ORDERABLES MUSE SYSTEM * ABORH Recheck Status (08/13/2018 5:33 AM EDT) ABORH Recheck Order Order Placed [facility] ABORH Type Recheck Complete [facility] Blood specimen (specimen) 08/13/2018 5:33 AM EDT 08/13/2018 5:33 AM EDT Narrative Resulting Agency Comment Spec In Lab Camila Uriarte MD BLOOD BANK LAB ORDER ISAMAR Performing Organization Address City/[facility]/ZIP Co de Phone Number [facility] [place] [place] [address] * Antibody screen (08/13/2018 5:33 AM EDT) Ab Screen Interp Negative [facility] Expires at [id number] on: 08/16/2018 [facility] Blood specimen (specimen) 08/13/2018 5:33 AM EDT 08/13/2018 5:33 AM EDT Narrative Resulting Agency Comment Spec In Lab Camila Uriarte MD BLOOD BANK LAB ORDER ISAMAR [facility] [place] [place] [address] * ABO/Rh Typing (08/13/2018 5:33 AM EDT) ABORH Type O Pos [facility] Blood specimen (specimen) 08/13/2018 5:33 AM EDT 08/13/2018 5:33 AM EDT Narrative Resulting Agency Comment Spec In Lab Camila Uriarte MD BLOOD BANK LAB ORDER ISAMAR Performing Organization Address City/[facility]/ZIP Co de Phone Number [facility] [place] [place] [address] * Alaniz Tube Hold (08/13/2018 5:15 AM EDT) Alaniz Hold Sample in lab. [facility] Blood specimen (specimen) Venous Draw / Unknown 08/13/2018 5:15 AM EDT 08/13/2018 5:32 AM EDT Camila Uriarte MD CHEMISTRY ORDERABLES Performing Organization Address [facility]/[place] Co de Phone Number [facility] [place] [place] [address] * Gold Tube HOLD (08/13/2018 5:15 AM EDT) Gold Hold Sample in lab. [facility] Blood specimen (specimen) Venous Draw / Unknown 08/13/2018 5:15 AM EDT 08/13/2018 5:32 AM EDT Camila Uriarte MD CHEMISTRY ORDERABLES Performing Organization Address [facility]/[place] Co de Phone Number [facility] [place] [place] [address] * (ABNORMAL) Differential, Automated (08/13/2018 5:15 AM EDT) Neutrophil % 83.7 % [facility] Neutrophil Absolute 14.46(H) 1.70 - 6.10 x10(3)/mc L [facility] Lymph % 9.4 % [facility] Lymphocytes Abs 1.6 0.9 - 3.2 x10(3)/mc L [facility] Monocyte % 5.6 % [facility] Monocyte Abs 1.0(H) 0.3 - 0.9 x10(3)/mc L [facility] Eos % 0.2 % [facility] Eosinophils Abs 0.0 0.0 - 0.4 x10(3)/[facility] Basophil % 0.3 % [facility] Baso Absolute 0.1 0.0 - 0.1 x10(3)/[facility] Immature Gran % 0.80 % [facility] Comment: Immature granulocytes(IG's)percentage and absolute count will include metamyelocytes, myelocytes, and promyelocytes. Blood smears from CBCs yielding IG's will be scanned manually for concordance. If this scan disagrees with the automated IG or if promyelocytes are noted, a manual differential will be performed. Immature Gran Absolute 0.14(H) 0.00 - 0.04 x10(3)/[facility] Blood specimen (specimen) 08/13/2018 5:15 AM EDT 08/13/2018 5:31 AM EDT Narrative Resulting Agency Comment Spec In Lab Camila Uriarte MD HEMATOLOGY ORDERABLE S [facility] [place] [place] [address] * (ABNORMAL) Hemogram (08/13/2018 5:15 AM EDT) White Blood Cell 17.3(H) 4.0 - 9.5 x10(3)/[facility] Red Blood Cell 4.64 4.58 - 5.54 x10(6)/[facility] Hemoglobin 15.2 13.7 - 16.5 gm/dL [facility] Hematocrit 44.9 40.5 - 48.5 % [facility] Mean Cell Volume 96.8(H) 82.9 - 93.1 fL [facility] Mean Cell Hemoglobin 32.8(H) 27.5 - 32.1 pg [facility] Mean Cell Hemoglobin Concentration 33.9 32.0 - 35.7 gm/dL [facility] Platelet 219 145 - 357 x10(3)/mc L [facility] RDW Standard Deviation 42.9 36.0 - 45.0 [facility] RDW coefficient of variation 12.0 11.4 - 13.8 % [facility] Mean Platelet Volume 12.2 7.6 - 12.9 fL [facility] NRBC% auto 0.0 % [facility] NRBC Absolute 0.000 0.000 - 0.000 x10(3)/mc L [facility] Blood specimen (specimen) 08/13/2018 5:15 AM EDT 08/13/2018 5:31 AM EDT Narrative Resulting Agency Comment Spec In Lab Camila Uriarte MD HEMATOLOGY ORDERABLE S Performing Organization Address [facility] [place] [address] * APTT (08/13/2018 5:15 AM EDT) Partial Thromboplastin Time 29 25 - 37 sec [facility] Comment: The PTT is NOT appropriate for heparin monitoring. Use the Anti-Xa level for heparin monitoring (HEP UFH) or LMWH monitoring (HEP LMW). A PTT less than 37 seconds generally indicates adequate hemostasis. Blood specimen (specimen) 08/13/2018 5:15 AM EDT 08/13/2018 5:31 AM EDT Narrative Resulting Agency Comment Spec In Lab Caesar Shirley MD HEMATOLOGY ORDERA BLES Performing Organization Address [facility]/[place] Co de Phone Number [facility] [place] [address] * Prothrombin Time (08/13/2018 5:15 AM EDT) Prothrombin Time 10.7 9.4 - 12.5 sec [facility] International Normalization Ratio 0.9 [facility] Comment: An INR <2.0 [...] Lab Caesar Shirley MD HEMATOLOGY ORDERA BLES [facility] [place] [address] * (ABNORMAL) Basic Metabolic Panel (non-fasting) (08/13/2018 5:15 AM EDT) Glucose 142 65 - 199 mg/dL [facility] Comment:Diabetes: >=200 mg/d L plus symptoms Blood Urea Nitrogen 12 10 - 20 mg/dL [facility] Creatinine 0.67(L) 0.80 - 1.50 mg/dL [facility] Sodium 139 135 - 145 mmol/L [facility] Potassium 3.6 3.5 - 5.0 mmol/L [facility] Comment: Please note: ??Patients with WBC >100,000 may have falsely elevated Potassium levels. ??For accurate Potassium quantification in these patients send serum separator tube (gold top) for subsequent determinations. ??Contact the Clinical Chemistry Laboratory if there are any questions. Chloride 102 98 - 107 mmol/L [facility] Carbon Dioxide 23 22 - 31 mmol/L [facility] Anion Gap 14 5 - 15 mmol/L [facility] Calcium 8.2(L) 8.5 - 10.5 mg/dL [facility] Est Glomerular Filtration Rate 113 >=60 mL/min/1. 73 m?? [facility] Comment: The eGFR was calculated using the CKD-EPI equation. As with all creatinine based estimates of kidney function, eGFR values calculated with the CKD-EPI equation are not accurate in patients with acute kidney failure, extremes of body mass or the acutely ill. http://[employer]/[facility] eGFR 131 >=60 mL/min/1. 73 m?? [facility] Comment: The eGFR was calculated using the CKD-EPI equation. As with all creatinine based estimates of kidney function, eGFR values calculated with the CKD-EPI equation are not accurate in patients with acute kidney failure, extremes of body mass or the acutely ill. http://[employer]/[facility] Blood specimen (specimen) 08/13/2018 5:15 AM EDT 08/13/2018 5:31 AM EDT Narrative Resulting Agency Comment Spec In Lab Caesar Shirley MD CHEMISTRY ORDERAB LES Performing Organization Address [facility]/[place] Co de Phone Number [facility] [place] [place] [address] * Film Library- Storage Only DX Lower Extremity (08/13/2018 2:34 AM EDT) Narrative [facility] - 08/13/2018 2:34 AM EDT This exam is auto-finalizing. It's purpose is for storage only. Williams Bridges MD [facility] FILM LIBRARY ORD ERABLES Performing Organization Address [facility] de Phone Number [place], [place] * Film Library- Storage Only CT Head And Spine (08/13/2018 2:31 AM EDT) Narrative [facility] - 08/13/2018 2:31 AM EDT This exam is auto-finalizing. It's purpose is for storage only. Williams Bridges MD [facility] FILM LIBRARY ORD ERABLES Performing Organization Address [facility]/[place] Co de Phone Number [place], [place] * Film Library- Storage Only CT Spine (08/13/2018 2:28 AM EDT) Narrative [facility] - 08/13/2018 2:28 AM EDT This exam is auto-finalizing. It's purpose is for storage only. Williams ORTIZ FILM LIBRARY ORD ERABLES Performing Organization Address City/[facility]/[place] Co de Phone Number [place], [place] * Film Library- Storage Only CT Chest Abdomen Pelvis (08/13/2018 2:27 AM EDT) Narrative [facility] - 08/13/2018 2:27 AM EDT This exam is auto-finalizing. It's purpose is for storage only. Williams Bridges MD [facility] FILM LIBRARY ORD ERABLES Performing Organization Address [facility]/[place] Co de Phone Number [place], [place] documented in this encounter Visit Diagnoses [...] on Sat08/13/18 at 1726, Until Sat08/13/18 at 2127, Pain, Give 0.4 mg every 5 minutes [...] on Sat08/13/18 at 2211, Until Sat08/15/18 at 203, alcohol/benzodiazepine withdrawal- uncomplicated, When given intravenously, the [...] Poe RN)1400 (Not Given - Provider: Caesar Avendnao - Reason: Transfer to a Procedural area)1506 [...] 08/14/18 at 0900, Until Discontinued, Routine 1506 (MAR Hold - Provider: Admin [...] 08/14/18 at 0900, Until Discontinued, Routine 1506 (MAR Hold - Provider: Admin [...] Prophylaxis 1033 (New Bag - Provider: Naya Poe, ARNOL)1116 (Stopped - Provider: Naya Poe RN)1506 (MAR Hold - Provider: Admin Adt - Reason: Transfer to a Procedural area)1747 (Automatically Held - Provider: Admin Adt)1814 (APR Unhold - Provider: Admin Adt) ceFAZolin (ANCEF) [...] Avendano)1017 (New Bag - Provider: Garcia Trivedi, RN)1047 (Stopped - Provider: Garcia Trivedi, RN)1705 [...] area)2127 (APR Unhold - Provider: Admin Adt) 0811 (Given - Provider: Garcia Trivedi, ARNOL) 0958 (Given - Provider: Zenia Romo, ARNOL) hydroCHLOROthiazide (HYDRODIURIL) tablet 25 mg 25 mg, Oral, DAILY, First dose on Sat08/13/18 at 0947, Until Discontinued, Routine 0947 (Not Given - Provider: Naya Poe RN - Reason: Medication not available - Comment: have not received fro pharmacy)1358 (Given - Provider: Kellie Alvarez RN)1506 [...] 0444, STAT 0447 (Given - Provider: Naya Poe RN) multivitamin with minerals (THERA-M) tablet 1 tablet [...] (Patch (dose and location) verified - Provider: Caesra Avendano) 0900 (Patch (dose and location) verified [...] Adt)2126 (MAR Unhold - Provider: Admin Adt) 0812 [...] Procedural area)2100 (Automatically Held - Provider: Admin Adt)7 (MAR Unhold - Provider: Admin Adt) 0811 (Given - Provider: Garcia Trivedi, RN)203 (Given - Provider: Caesar Avendano) 0900 (Given - Provider: Zenia Romo, RN) thiamine (Vitamin B-1) tablet 100 mg 100 mg, Oral, DAILY, First dose on Judith 08/14/18 at 0900, Until Discontinued, Routine 0812 (Given - Provider: Garcia Trivedi, RN) 0958 (Given - Provider: Zenia Romo, RN) Continuous Medication Order 08/13/2018 08/14/2018 08/15/2018 sodium chloride 0.9% infusion 1,000 mL, at 100 mL/hr, Intravenous, CONTINUOUS, Starting on Sat08/13/18 at 0948, Until Sat08/15/18 at 2038 1030 (New Bag - Provider: Naya Poe RN)1506 (MAR Hold - Provider: Admin Adt - Reason: Transfer to a Procedural area)1656 (Anesthesia Volume Adjustment - Provider: Bg Moran CRNA)1814 (APR Unhold - Provider: Avril Nielsen RN) PRN Medication Order 08/13/2018 08/14/2018 08/15/2018 cyclobenzaprine (FLEXERIL) tablet 10 mg 10 mg, Oral, 3 TIMES DAILY PRN, Starting on Sat08/13/18 at 0945, Until Sat08/15/18 at 2038, Muscle spasms, Routine 1506 (APR Hold - Provider: Admin Adt - Reason: Transfer to a Procedural area)1814 (APR Unhold - Provider: Avril Nielsen RN) fentaNYL (PF) 50mcg/mL injection (CANCELED) 50 mcg, Intravenous, EVERY 30 MIN PRN, Starting on Sat08/13/18 at 0522, Until Judith 08/14/18 at 0712, Pain, If medication ordered subcutaneously, do not administer more than 2 mL as a single injection., STAT 0540 (Given - Provider: Shahida Mcfarlane RN)0816 (Given - Provider: Naya S Poe, RN)1032 (Given - Provider: Naya Poe RN)1320 (Given - Provider: Naya Poe RN)1356 (Given [...] Trivedi, RN)1621 (See Alternative - Provider: Garcia Trivedi RN)2036 (See Alternative - Provider: Caesar Avendano) [...] Routine documented in this encounter Care Teams Supply Chain Planner Relationship Specialty Start Date End Date Mirian Malcolm MD [address] [place] [address] PCP - General Family Medicine 08/13/18 documented as of this encounter
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
--- OUTSIDE RECORDS SUMMARY | 2023-10-21 02:42 | XMS_ITS | Encounter Summary ---
Author Organization [facility] Address [facility] [place] [address] Care Team Providers Care Aoc Operations Intelligence Officer Name Role Phone Mirian Malcolm MD Primary Care Provider [phone] Encounter Details Date Type Department Care Team (Late st Contact Info) Description 08/13/2018 2:35 AM EDT Ancillary Procedure [place] [id number] Social History Tobacco Use Types Packs/Day Years [...] CT Spine (08/13/2018 2:28 AM EDT) Narrative [facility] - 08/13/2018 2:28 AM EDT This exam is auto-finalizing. It's purpose is for storage only. Williams Bridges MD IMG FILM LIBRARY ORD ERABLES [place], [place] documented in this encounter Visit Diagnoses Not on filedocumented in this encounter Care Teams Aoc Operations Intelligence Officer Relationship Specialty Start Date End Date Mirian Malcolm MD [address] [place] [address] PCP - General Family Medicine 08/13/18 documented as of this encounter
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
--- OUTSIDE RECORDS SUMMARY | 2023-10-21 02:42 | XMS_ITS | Encounter Summary ---
Author Organization [facility] [place] [address] Care Team Providers Care Mock Up Builder Name Role Phone Monica Paige Primary Care Provider [phone] Encounter Details Date Type Department Care Team (Late st Contact Info) Description 06/04/2016 Orders Only Vascular Surgery at [facility] [place] [address] Srikanth Anderson, RN PAD (peripheral artery disease); Varicose vein [...] veins documented in this encounter Care Teams Mock Up Builder Relationship Specialty Start Date End Date Monica Paige PA [address] [place] [address] PCP - General Family Medicine 05/14/16 08/12/18 documented as of this encounter
--- OUTSIDE RECORDS SUMMARY | 2023-10-21 02:42 | XMS_ITS | Encounter Summary ---
Author Organization [facility] Address [facility] [place] [address] Care Team Providers Care Visual Coordinator Name Role Phone Monica Paige Primary Care Provider [phone] Encounter Details Date Type Department Care Team (Latest Contact Info) Description 02/10/2018 - 02/10/2018 11:59 PM EST Hospital Encounter [place] [address] Mary Ko MD [facility] [place] [address] Discharge Disposition: Home Social History Tobacco Use [...] Ultrasound Study (02/10/2018 12:00 AM EST) Narrative [facility] - 02/11/2018 8:54 AM EST This exam is for storage only and is auto-finalizing. Mary Ko MD IMG FILM LIBRARY ORD ERABLES Performing Organization Address City/State/[facility] Co de Phone Number [place], [place] documented in this encounter Visit Diagnoses Not on filedocumented in this encounter Care Teams Visual Coordinator Relationship Specialty Start Date End Date Monica Paige PA [address] [place] [address] PCP - General Family Medicine 05/14/16 08/12/18 documented as of this encounter
--- OUTSIDE RECORDS SUMMARY | 2023-10-21 02:42 | XMS_ITS | Encounter Summary ---
Author Organization [facility] Address [place] [address] Care Team Providers Care Geological Technician Name Role Phone Mirian Malcolm MD Primary Care Provider [phone] Encounter Details Date Type Department Care Team (Late st Contact Info) Description 08/13/2018 7:15 AM EDT Ancillary Procedure Radiology Library at [facility] [place] [address] Social History Tobacco Use Types Packs/Day Years [...] Electronically signed by: Brianne Hathaway [facility]([phone]), at 08/13/2018 7:57 AM Caesar Shirley MD IMG OUTSIDE INTER PRETATION ORDERABLES documented in this encounter Visit Diagnoses Not on filedocumented in this encounter Care Teams Geological Technician Relationship Specialty Start Date End Date Mirian Malcolm MD [address] [place] [address] PCP - General Family Medicine 08/13/18 documented as of this encounter
--- OUTSIDE RECORDS SUMMARY | 2023-10-21 02:42 | XMS_ITS | Encounter Summary ---
Author Organization [facility] Address [facility] [place] [address] Care Team Providers Care Utility Bill Collector Name Role Phone Monica Paige Primary Care Provider [phone] Encounter Details Date Type Department Care Team (Late st Contact Info) Description 06/28/2016 External Results Neurology at [facility] [place] [address] Cassy Quiñonez MD [facility] [place] [address] Social History Tobacco Use Types Packs/Day Years [...] on filedocumented in this encounter Care Teams Utility Bill Collector Relationship Specialty Start Date End Date Monica Paige PA [address] [place] [address] PCP - General Family Medicine 05/14/16 08/12/18 documented as of this encounter
--- OUTSIDE RECORDS SUMMARY | 2023-10-21 02:42 | XMS_ITS | Encounter Summary ---
Author Organization [facility] [place] [address] Care Team Providers Care Classifier Operator Name Role Phone Miiran Malcolm MD Primary Care Provider [phone] Encounter Details Date Type Department Care Team (Late st Contact Info) Description 08/13/2018 7:00 AM EDT Ancillary Procedure Radiology Library at [facility] [place] [address] Social History Tobacco Use Types Packs/Day Years [...] without with intravenous contrast. Study performed at [facility] [...] performed withoutwith intravenous contrast. Study performed at [facility] at 0055 hours, August 13, 2018 [...] on filedocumented in this encounter Care Teams Classifier Operator Relationship Specialty Start Date End Date Mirian Malcolm MD [address] [place] [address] PCP - General Family Medicine 08/13/18 documented as of this encounter
--- OUTSIDE RECORDS SUMMARY | 2023-10-21 02:42 | XMS_ITS | Encounter Summary ---
Author Organization Count Includes [facility] Address [facility] [place] [address] Care Team Providers Care Flat Lock Operator Name Role Phone Monica Paige Primary Care Provider [phone] Reason for Visit * Reason Comments Varicose Veins PT HERE FOR NEW PROB MATY LEFT SIDED VARICOSE VEINS PT SEEN AT [facility] RECENTLY AND WAS TOLD HE HAD BLOOD CLOTS HERE FOR CONSULTATION * Consultation (Urgent) - Specialty Diagnoses / Procedures Referred By Giles girard Referred To Contact Vascular Surgery Diagnoses bleeding varicose veins Procedures bleeding varicose veins Quang Montesinos, NEWS LIBRARY DIRECTOR EMERGENCY DEPT [address] [place] [address] [place] [address] [facility] [address] [place] [address] Referral ID Status Reason Start Date Expiration Date V isits Requested Visits Authorized [id number] Consult, Test & Treat 02/19/2018 02/19/2019 2 2 Encounter Details Date Type Department Care Team (Late st Contact Info) Description 02/20/2018 11:30 AM EST Office [place] [address] Raúl Farmer MD [facility] [place] [address] Varicose veins of both lower [...] complications documented in this encounter Care Teams Flat Lock Operator Relationship Specialty Start Date End Date Monica Paige [address] [place] [address] PCP - General Family Medicine 05/14/16 08/12/18 documented as of this encounter
--- OUTSIDE RECORDS SUMMARY | 2023-10-21 02:42 | XMS_ITS | Encounter Summary ---
Author Organization [facility] Address [facility] [place] [address] Care Team Providers Care Black Top Paver Operator Name Role Phone Mirian Malcolm MD Primary Care Provider [phone] Encounter Details Date Type Department Care Team (Late st Contact Info) Description 08/13/2018 2:45 AM EDT Ancillary Procedure Radiology Library at [facility] [place] [address] Social History Tobacco Use Types Packs/Day Years [...] Lower Extremity (08/13/2018 2:34 AM EDT) Narrative RAD - 08/13/2018 2:34 AM EDT This exam is auto-finalizing. It's purpose is for storage only. Williams Bridges MD IMG FILM LIBRARY ORD ERABLES [place], [place] documented in this encounter Visit Diagnoses Not on filedocumented in this encounter Care Teams Black Top Paver Operator Relationship Specialty Start Date End Date Mirian Malcolm MD [address] [place] [address] PCP - General Family Medicine 08/13/18 documented as of this encounter
--- OUTSIDE RECORDS SUMMARY | 2023-10-21 02:43 | XMS_ITS | Encounter Summary ---
Author Organization [facility] Address [facility] [place] [address] Care Team Providers Care Tarp Repairer Name Role Phone Kallie Lopez MD Primary Care Provider [phone] Encounter Details Date Type Department Care Team (Late st Contact Info) Description 12/21/2010 External Results [place] [address] Megan Orlando MD [facility] DR PHYSICAL MEDICINE & [place] [address] Social History Tobacco Use Types Packs/Day Years [...] on filedocumented in this encounter Care Teams Tarp Repairer Relationship Specialty Start Date End Date Kallie Lopez MD [address] [place] [address] PCP - General 01/17/10 06/29/12 documented as of this encounter
--- OUTSIDE RECORDS SUMMARY | 2023-10-21 02:43 | XMS_ITS | Encounter Summary ---
Author Organization [facility] Address [facility] [place] [address] Care Team Providers Care Ski Molder Name Role Phone Kallie Lopez MD Primary Care Provider [phone] Encounter Details Date Type Department Care Team (Late st Contact Info) Description 04/14/2010 5:00 PM EST Office Visit Dermatology [address] [place] [address] [address] [place], [place] [address] Kimo Fournier MD [address] [facility] [place] [address] Social History Tobacco Use Types Packs/Day Years Used Date Smoking Tobacco: Never Assessed Sex and Gender Information Value Date Recorded Sex Assigned at Not on file Gender Identity Not on file Sexual Orientation Not on file documented as of this encounter Plan of Treatment Not on file documented as of this encounter Visit Diagnoses Not on filedocumented in this encounter Care Teams Ski Molder Relationship Specialty Start Date End Date Kallie Lopez MD [address] [place] [address] PCP - General 01/17/10 06/29/12 documented as of this encounter
--- OUTSIDE RECORDS SUMMARY | 2023-10-21 02:43 | XMS_ITS | Encounter Summary ---
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 MR#: [id number] DATE OF VISIT: 02/22/2011 DATE OF INJURY/ONSET: [...] nerve documented in this encounter Care Teams Suede Cleaner Relationship Specialty Start Date End Date Kallie Lopez MD [address] [place] [address] PCP - General 01/17/10 06/29/12 documented as of this encounter
--- OUTSIDE RECORDS SUMMARY | 2023-10-21 02:43 | XMS_ITS | Encounter Summary ---
Author Organization [facility] Address [facility] [place] [address] Care Team Providers Care Inspector Repairer Name Role Phone Unknown Primary Care Provider Unavailabl e Encounter Details Date Type Department Care Team (Latest Contact Info) Description 06/30/2012 3:33 PM EDT - 06/30/2012 11:59 PM EDT Hospital Encounter XRay at [address] [place] [address] Left shoulder pain; Neuropathy; Cervical radiculopathy Social [...] mouth every 6 hours as needed. 02/20/2018 Ucvq-Bkpovn-OpuzjeEnnh-D3 -C-Mn (GLUCOSAMINE-CHONDROITIN- VIT D3) 500-400-667 mg-mg-unit Cap [...] mg injection Intra-articular, ONCE, 1 dose, On Sat06/30/12 at 1700 Given 06/30/2012 5:00 PM EDT documented in this encounter Care Teams Inspector Repairer Relationship Specialty Start Date End Date Unknown None PCP - General 06/30/12 04/29/13 documented as of this encounter
--- OUTSIDE RECORDS SUMMARY | 2023-10-21 02:43 | XMS_ITS | Encounter Summary ---
Author Organization [facility] Address [facility] [place] [address] Care Team Providers Care Hatch Supervisor Name Role Phone Kallie Lopez MD Primary Care Provider [phone] Encounter Details Date Type Department Care Team (Late st Contact Info) Description 06/13/2012 Orders [place] [address] Gladis Drummond PA [facility] [place] [address] Biceps tendonitis (Primary Dx) Social History Tobacco [...] tenosynovitis documented in this encounter Care Teams Hatch Supervisor Relationship Specialty Start Date End Date Kallie Lopez MD [address] [place] [address] PCP - General 01/17/10 06/29/12 documented as of this encounter
--- OUTSIDE RECORDS SUMMARY | 2023-10-21 02:43 | XMS_ITS | Encounter Summary ---
Author Organization [facility] [place] [address] Care Team Providers Care Furniture Installer Name Role Phone Kallie Lopez MD Primary Care Provider [phone] Encounter Details Date Type Department Care Team (Late st Contact Info) Description 04/05/2010 Orders Only Lab [facility] [place] [address] Kimo Parks MD [address] [place] [address], [facility] [place] [address] Social History Tobacco Use Types Packs/Day Years [...] 6:38 PM EST) Surgical Pathology Report ? [facility] ? Provider: ?? KIMO PARKS ?? Pt. Name: ?? PORSHA PARK ? Acc #: ?[id number] ? Pt. ? Col Date: ?? 04/05/2010 [...] drug, contactant, or arthropod bite or infestation. Sukhdeep Rolon ? and Asaf have reviewed this case [...] arms, inner thighs, ? flanks, back ? [facility] ? Provider: ?? KIMO PARKS ?? Pt. Name: ?? PORSHA PARK ? Acc #: ?[id number] ? Pt. ? Col Date: ?? 04/05/2010 ?/Sex: ?1970,(40 years),Male ? Rec Date: ?? 04/06/2010 ? LOC: ?[facility] ? SURGICAL PATHOLOGY ? Clinical Diagnosis: ? R/O CTCL vs spongiotic dermatitis ? Report to: ? Kimo Parks MD, III ? [facility] ? Dermatology ? [place] ??[address] FRANSISCO MILLSENNIUM 04/05/2010 6:38 PM EST Kimo Parks MD PATHOLOGY/CYTOLOGY O RDERADONNY FRANSISCO MURPHYIUM documented in this encounter Visit Diagnoses Not on filedocumented in this encounter Care Teams Furniture Installer Relationship Specialty Start Date End Date Kallie Lopez MD [address] [place] [address] PCP - General 01/17/10 06/29/12 documented as of this encounter
--- OUTSIDE RECORDS SUMMARY | 2023-10-21 02:43 | XMS_ITS | Encounter Summary ---
Author Organization [facility] Address [facility] [place] [address] Care Team Providers Care Hot Saw Operator Name Role Phone Mirian Malcolm MD Primary Care Provider [phone] Encounter Details Date Type Department Care Team (Late st Contact Info) Description 04/05/2010 Orders Only Dermatology at [place] [address] [facility] [place] [place] [address] Kimo Fournier MD [address] [facility] [place] [address] Social History Tobacco Use Types Packs/Day Years [...] (04/05/2010 6:38 PM EST) Surgical Pathology Report [id number] ? Location: [facility] The signing pathologist has (i) examined the relevant preparation(s) for the specimen(s) and (ii) rendered or confirmed the diagnosis(es). . ?Pathology Surgical Pathology Final Report Clinical Information Specimen Submitted: A - (L) forearm, shave Clinical History: Symmetric eczematous patches since March 2009 on arms, inner thighs, flanks, back Clinical Diagnosis: R/O CTCL vs spongiotic dermatitis Report to: Kimo Fournier MD, [facility] Dermat[place], [place] ??[address] Gross Description Labeled/Fixative: ? L forearm, formalin. [...] 04/07/10 Verified by: ? Pradeep CORTES, PhD, [facility] ?Dermatopathologis t ?(Electronic Signature) The attending pathologist [...] Asaf have reviewed this case and concur. FRANSISCO MATHEWS 04/05/2010 6:38 PM EST Kimo Fournier MD PATHOLOGY/CYTOLOGY O SAM FRANSISCO MATHEWS documented in this encounter Visit Diagnoses Not on filedocumented in this encounter Care Teams Hot Saw Operator Relationship Specialty Start Date End Date Mirian Malcolm MD [address] [place] [address] PCP - General Family Medicine 08/13/18 documented as of this encounter
--- OUTSIDE RECORDS SUMMARY | 2023-10-21 02:43 | XMS_ITS | Encounter Summary ---
Author Organization [facility] Address [facility] [place] [address] Care Team Providers Care Sewer Head Name Role Phone Unknown Primary Care Provider Unavailabl e Reason for Referral * Physical Therapy (Routine) - Complete - Patient Will Schedule External Appt Specialty Diagnoses / Procedures Referred By Giles girard Referred To Contact Physical Therapy Diagnoses Impingement syndrome of shoulder Shoulder joint pain Biceps tendonitis Gladis Drummond PA [facility] [place] [address] Referral ID Status Reason Start Date Expiration Date Visits Requested Visits Authorized [id number] Complete - Patient Will Schedule External Appt Evaluate and Treat 06/30/2012 12/27/2012 12 12 Reason for Visit * Reason Comments Left Shoulder Pain SP L SHOULDER SCOPE DOS 06/29/2009 Encounter Details Date Type Department Care Team (Late st Contact Info) Description 06/30/2012 2:10 PM EDT Office [place] [address] Gladis Drummond PA [facility] [place] [address] Impingement syndrome of shoulder (Primary Dx); Shoulder [...] NAME: Porsha Park AGE: 42 y.o. MR#: [id number] DATE OF VISIT: 06/30/2012 DATE OF INJURY/ONSET: [...] tenosynovitis documented in this encounter Care Teams Sewer Head Relationship Specialty Start Date End Date Unknown None PCP - General 06/30/12 04/29/13 documented as of this encounter
--- OUTSIDE RECORDS SUMMARY | 2023-10-21 02:43 | XMS_ITS | Encounter Summary ---
Author Organization [facility] Address [facility] [place] [address] Care Team Providers Care Quartz Miner Name Role Phone Kallie Lopez MD Primary Care Provider [phone] Reason for Visit * Reason Onset Date Comments Results 06/16/2012 Encounter Details Date Type Department Care Team (Late st Contact Info) Description 06/16/2012 [place] [address] Gladis Drummond PA [facility] [address] [place] [address] Results Social History Tobacco Use Types Packs/Day [...] on filedocumented in this encounter Care Teams Quartz Miner Relationship Specialty Start Date End Date Kallie Lopez MD [address] [place] [address] PCP - General 01/17/10 06/29/12 documented as of this encounter
--- OUTSIDE RECORDS SUMMARY | 2023-10-21 02:43 | XMS_ITS | Encounter Summary ---
Author Organization [facility] Address [facility] [place] [address] Care Team Providers Care Box Car Washer Name Role Phone Kallie Lopez MD Primary Care Provider [phone] Encounter Details Date Type Department Care Team (Late st Contact Info) Description 06/19/2012 Telephone Orthopaedics at [facility] [place] [phone] Catherine Humphries MSW Social History Tobacco Use [...] EDT [facility] SOCIAL WORK CONTINUING HOME APPLIANCE TECH DOI:11/17/10 INSURANCE COMAPANY: [employer] CALL FROM: Porsha [...] on filedocumented in this encounter Care Teams Box Car Washer Relationship Specialty Start Date End Date Kallie Lopez MD [address] [place] [address] PCP - General 01/17/10 06/29/12 documented as of this encounter
--- OUTSIDE RECORDS SUMMARY | 2023-10-21 02:43 | XMS_ITS | Encounter Summary ---
Author Organization [facility] Address [facility] [place] [address] Care Team Providers Care Special Duty Nurse Name Role Phone Kallie Lopez MD Primary Care Provider [phone] Encounter Details Date Type Department Care Team (Late st Contact Info) Description 06/03/2012 Orders [place] [address] Gladis Drummond PA [facility] DR [place] [address] Shoulder pain, left (Primary Dx) Social History [...] region documented in this encounter Care Teams Special Duty Nurse Relationship Specialty Start Date End Date Kallie Lopez MD [address] [place] [address] PCP - General 01/17/10 06/29/12 documented as of this encounter
--- OUTSIDE RECORDS SUMMARY | 2023-10-21 02:43 | XMS_ITS | Encounter Summary ---
Author Organization [facility] Address [facility] [place] [address] Care Team Providers Care Management Specialist Name Role Phone Kallie Lopez MD Primary Care Provider Encounter Details Date Type Department Care Team (Latest Contact Info) Description 06/09/2012 3:05 PM EDT - 06/09/2012 11:59 PM EDT Hospital Encounter XRay at [address] [place] [phone] Shoulder pain, left Social History Tobacco Use [...] mouth every 6 hours as needed. 02/20/2018 Venq-Uxmsoi-TiqmqwCpsy-D3 -C-Mn (GLUCOSAMINE-CHONDROITIN- VIT D3) 500-400-667 mg-mg-unit Cap [...] region documented in this encounter Care Teams Management Specialist Relationship Specialty Start Date End Date Kallie Lopez MD [address] [facility] [place] [address] PCP - General 01/17/10 06/29/12 documented as of this encounter
--- OUTSIDE RECORDS SUMMARY | 2023-10-21 02:43 | XMS_ITS | Encounter Summary ---
Author Organization [facility] Address [facility] [address] Care Team Providers Care Facility Engineer Name Role Phone Kallie Lopez MD Primary Care Provider [phone] Reason for Referral * Physical Therapy (Routine) - Complete - Patient Will Schedule External Appt Specialty Diagnoses / Procedures Referred By Giles girard Referred To Contact Physical Therapy Diagnoses Elbow pain, right Manolo, Kellie Santiago PA [facility] [place] [address] Referral ID Status Reason Start Date Expiration Date Visits Requested Visits Authorized [id number] Complete - Patient Will Schedule External Appt Evaluate and Treat 1 06/19/2011 1 1 * Rehabilitation (Routine) - Closed Specialty Diagnoses / Procedures Referred By Giles girard Referred To Contact Physical Medicine and Rehab Diagnoses Elbow pain, right Manolo, Kellie B, PA [facility] [place] [address] [facility] [address] [place] [address] Referral ID Status Reason Start Date Expiration Date V isits Requested Visits Authorized [id number] Closed Consult, Test & Treat 12/21/2010 06/19/2011 1 1 Reason for Visit * Reason Comments Right Elbow Pain DOI 8.30.11 R elbow fx Encounter Details Date Type Department Care Team (Late st Contact Info) Description 12/21/2010 9:40 AM EDT Follow-Up Orthopaedics at [facility] [place] [address] Gladis Drummond PA [facility] [address] Elbow pain, right (Primary Dx); Ulnar nerve [...] NAME: Porsha Park AGE: 40 y.o. MR#: [id number] DATE OF VISIT: 12/21/2010 DATE OF INJURY/ONSET: [...] nerve documented in this encounter Care Teams Facility Engineer Relationship Specialty Start Date End Date Kallie Lopez MD [address] [place] [address] PCP - General 01/17/10 06/29/12 documented as of this encounter
--- OUTSIDE RECORDS SUMMARY | 2023-10-21 02:43 | XMS_ITS | Encounter Summary ---
Author Organization [facility] Address [facility] [place] [address] Care Team Providers Care Photographic Aide Name Role Phone Kallie Lopez MD Primary Care Provider [phone] Encounter Details Date Type Department Care Team (Late st Contact Info) Description 04/05/2010 3:00 PM EST Office Visit Dermatology [facility] [address] [place], [place] [address] Kimo Fournier MD [address] [facility] [place] [address] Social History Tobacco Use Types Packs/Day Years Used Date Smoking Tobacco: Never Assessed Sex and Gender Information Value Date Recorded Sex Assigned at Not on file Gender Identity Not on file Sexual Orientation Not on file documented as of this encounter Plan of Treatment Not on file documented as of this encounter Visit Diagnoses Not on filedocumented in this encounter Care Teams Photographic Aide Relationship Specialty Start Date End Date Kallie Lopez MD [address] [place] [address] PCP - General 01/17/10 06/29/12 documented as of this encounter
--- OUTSIDE RECORDS SUMMARY | 2023-10-21 02:43 | XMS_ITS | Encounter Summary ---
Author Organization [facility] Address [facility] [place] [address] Care Team Providers Care Ent Nurse Name Role Phone Kallie Lopez MD Primary Care Provider [phone] Reason for Visit * Reason Comments Right Elbow Pain DOI 9.23.11 R elbow pain Encounter Details Date Type Department Care Team (Late st Contact Info) Description 12/28/2010 3:00 PM EDT [place] [address] Gladis Drummond PA [facility] [place] [address] Elbow pain, right; Ulnar nerve entrapment at [...] Patient Instructions * Patient Instructions* Denis Morel, ANTIQUE AUTOMOBILES REPAIRER - 12/28/2010 3:21 PM EDT Welcome to [employer], your secure online access to your electronic medical record at [facility]. Using [employer] you will be able to send messages to your providers, view your test results, renew prescriptions, schedule appointments, and much more. Follow these instructions to enter your personal [employer] account for the first time: 1. Start your internet browser. Go to [email or web address] and click on the myD-H link. 2. Click SIGN UP NOW to go to the NEW MEMBER SIGN UP page. 3. Enter your [facility] Access Code exactly as it appears below. (You will not need this access code after you have completed the sign-up process.) ?? Your [facility]- Access Code: [email or web address] ?? Expires: 02/11/11 03:21 PM ?? IMPORTANT: [...] or your Access Code, please call for [place], for [place] or for [place]. If you need technical support, please e-mail [email or web address]. Remember, myD-H is NOT for urgent needs! Always dial 911 for medical emergencies. documented in this encounter Progress Notes * Gladis Drummond PA - 12/28/2010 4:33 PM EDT PATIENT NAME: Porsha Park AGE: 40 y.o. MR#: [id number] DATE OF VISIT: 12/28/2010 DATE OF INJURY/ONSET: [...] written on his workers compensation form from [facility] were reasonable and tolerable. PHYSICAL EXAM: Mr. [...] nerve documented in this encounter Care Teams Ent Nurse Relationship Specialty Start Date End Date Kallie Lopez MD [address] [place] [address] PCP - General 01/17/10 06/29/12 documented as of this encounter
--- OUTSIDE RECORDS SUMMARY | 2023-10-21 02:43 | XMS_ITS | Encounter Summary ---
Author Organization [facility] [place] [address] Care Team Providers Care Mobile Health Vehicle Operator Name Role Phone Unknown Primary Care Provider Unavailabl e Reason for Visit * Reason Comments Left Shoulder Pain left arm tingling Neck Pain Encounter Details Date Type Department Care Team (Latest Contact Info) Description 06/30/2012 1:05 PM EDT Office [place] [phone] Preet Dodd PA [facility] [place] [place] [address] Left shoulder pain (Primary Dx); Neuropathy; Cervical [...] - 06/30/2012 1:43 PM EDT Welcome to [employer], your secure online access to your electronic medical record at [facility]. Using [employer] you will be able to send messages to your providers, view your test results, renew prescriptions, schedule appointments, and much more. Follow these instructions to enter your personal [employer] account for the first time: 1. Start your internet browser and type [email or web address] into the address bar. 2. In the New User box on the right-hand side of the Welcome page click the link that states, ???I have an activation code.?? 3. On the Identification page, follow these steps: a) Enter your myD-H activation code: [email or web address] b) Expires: 08/14/2012 1:43 PM IMPORTANT: This [...] or your Access Code, please call for [place], for [place] or for [place]. If you need technical support, please e-mail [...] arm symptoms. This dictation was performed using [employer] voice recognition dictation. documented in this encounter Plan of Treatment Not on file documented as of this encounter Visit Diagnoses Diagnosis Left shoulder pain- Primary Pain in joint, shoulder region Neuropathy Mononeuritis of unspecified site Cervical radiculopathy Brachial neuritis or radiculitis nos documented in this encounter Care Teams Mobile Health Vehicle Operator Relationship Specialty Start Date End Date Unknown None PCP - General 06/30/12 04/29/13 documented as of this encounter
--- OUTSIDE RECORDS SUMMARY | 2023-10-21 02:43 | XMS_ITS | Encounter Summary ---
Author Organization [facility] Address [facility] [place] [address] Care Team Providers Care Program Engagement Director Name Role Phone Kallie Lopez MD Primary Care Provider [phone] Encounter Details Date Type Department Care Team (Late st Contact Info) Description 12/12/2010 Orders [place] [address] Gladis Drummond PA [facility] [place] [address] Elbow pain (Primary Dx) Social History Tobacco [...] arm documented in this encounter Care Teams Program Engagement Director Relationship Specialty Start Date End Date Kallie Lopez MD [address] [place] [address] PCP - General 01/17/10 06/29/12 documented as of this encounter
--- OUTSIDE RECORDS SUMMARY | 2023-10-21 02:43 | XMS_ITS | Encounter Summary ---
Author Organization [facility] Address [facility] [place] [address] Care Team Providers Care Employment Law Specialist Name Role Phone Elias Lopez MD Primary Care Provider [phone] Encounter Details Date Type Department Care Team (Latest Contact Info) Description 06/11/2012 2:25 PM EDT - 06/11/2012 11:59 PM EDT [place] [phone] CLINIC, Anish Ellington MD [facility] [place] [address] Shoulder joint pain Discharge Disposition: Home Social [...] mouth every 6 hours as needed. 02/20/2018 Tzrv-Zkercr-TstwfsPxgu-D3 -C-Mn (GLUCOSAMINE-CHONDROITIN- VIT D3) 500-400-667 mg-mg-unit Cap Take 1 tablet by mouth daily. 06/27/2016 documented as of this encounter Progress Notes * Srikanth Koch RN - 06/10/2012 1:58 PM EDT VIR MRI PRE-SEDATION ASSESSMENT NOTE NAME: Porsha Park AGE: 42 y.o. : 1970 Male [phone] (home) [phone] (work) Telephone Information: PCP [facility] [employer] ACTIVITIES DIRECTOR ELIAS LOPEZ MD None No Known Allergies [...] HR. BEFORE SCHEDULED SCAN AND HAVE A RUBBER BALL FINISHER AVAILABLE. PT STATED TO CONDUIT BENDER THAT THE SEDATION WAS EFFECTIVE FOR SCAN: Y N COMMENTS: This patient has been informed that they require a feeder driver to drive them home after this procedure. In the absence of a feeder driver, IR will not be able to [...] mg documented in this encounter Care Teams Employment Law Specialist Relationship Specialty Start Date End Date Elias Lopez MD [address] [place] [address] PCP - General 01/17/10 06/29/12 documented as of this encounter
--- OUTSIDE RECORDS SUMMARY | 2023-10-21 02:43 | XMS_ITS | Encounter Summary ---
Author Organization [facility] Address [facility] [place] [address] Care Team Providers Care Instructional Designer Name Role Phone Kallie Lopez MD Primary Care Provider [phone] Encounter Details Date Type Department Care Team (Late st Contact Info) Description 12/08/2010 Orders [place] [address] Gladis Drummond PA [facility] [place] [address] Social History Tobacco Use Types Packs/Day Years [...] 03/30/2013 This is a non-reportable exam. Gladis MALDONADO FILM LIBRARY ORDERABLES documented in this encounter Visit Diagnoses Not on filedocumented in this encounter Care Teams Instructional Designer Relationship Specialty Start Date End Date Kallie Lopez MD [address] [place] [address] PCP - General 01/17/10 06/29/12 documented as of this encounter
--- OUTSIDE RECORDS SUMMARY | 2023-10-21 02:43 | XMS_ITS | Encounter Summary ---
Author Organization [facility] Address [facility] [place] [address] Care Team Providers Care Pipe Cleaning Machine Operator Name Role Phone Unknown Primary Care Provider Unavailabl e Encounter Details Date Type Department Care Team (Latest Contact Info) Description 06/30/2012 3:30 PM EDT - 06/30/2012 3:32 PM EDT Hospital Encounter XRay at [address] [place] [address] Biceps tendonitis Social History Tobacco Use Types [...] mouth every 6 hours as needed. 02/20/2018 Uxca-Xtwfhf-VwuomjHyou-D3 -C-Mn (GLUCOSAMINE-CHONDROITIN- VIT D3) 500-400-667 mg-mg-unit Cap Take 1 tablet by mouth daily. 06/27/2016 documented as of this encounter Procedure Notes * Garcia Rosenberg MD - 06/30/2012 4:40 PM EDTProcedure(s): ARTHROCENTESIS,DRAIN/INJECT JOINT/BURSA Pre-Procedure Diagnose(s): Left shoulder pain Post-Procedure Diagnose(s): Left shoulder pain Porsha Park [id number] HISTORY: left shoulder Pain left shoulder INJECTION [...] were reviewed with patient. ?? Procedure Note Gacria Rosenberg MD - 07/01/2012 HISTORY: left shoulder [...] tenosynovitis documented in this encounter Care Teams Pipe Cleaning Machine Operator Relationship Specialty Start Date End Date Unknown None PCP - General 06/30/12 04/29/13 documented as of this encounter
--- OUTSIDE RECORDS SUMMARY | 2023-10-21 02:43 | XMS_ITS | Encounter Summary ---
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
--- OUTSIDE RECORDS SUMMARY | 2023-10-21 02:43 | XMS_ITS | Encounter Summary ---
Author Organization [facility] [place] [address] Care Team Providers Care Drain Layer Name Role Phone Kallie Lopez MD Primary Care Provider [phone] Reason for Referral * Surgical (Routine) - Closed Specialty Diagnoses / Procedures Referred By Giels girard Referred To Contact Orthopaedic Surgery / Orthopaedics Diagnoses Cervical spine pain Shoulder joint pain Gladis Drummond PA [facility] [place] [address] [facility] [address] [address] Referral ID Status Reason Start Date Expiration Date V isits Requested Visits Authorized [id number] Closed Consult, Test & Treat 06/09/2012 12/06/2012 3 3 Reason for Visit * Reason Comments Left Shoulder Pain sp l shoulder scope dos 06/29/09 Encounter Details Date Type Department Care Team (Late st Contact Info) Description 06/09/2012 3:35 PM EDT Office [place] [address] Gladis Drummond PA [facility] [place] [address] Cervical spine pain (Primary Dx); Shoulder joint [...] NAME: Porsha Park AGE: 42 y.o. MR#: [id number] DATE OF VISIT: 06/09/2012 DATE OF INJURY/ONSET: [...] The patient had extremely positive testing on Minden's and speeds. The patienthad positive testing on [...] examination with radicular [facility] RADIOLOGICAL STUDIES: Radiologic studies of the patient's [...] region documented in this encounter Care Teams Drain Layer Relationship Specialty Start Date End Date Kallie Lopez MD [address] [place] [address] PCP - General 01/17/10 06/29/12 documented as of this encounter
--- OUTSIDE RECORDS SUMMARY | 2023-10-21 02:43 | XMS_ITS | Encounter Summary ---
Author Organization [facility] Address [facility] [place] [address] Care Team Providers Care Car Dumper Operator Helper Name Role Phone Kallie Lopez MD Primary Care Provider [phone] Encounter Details Date Type Department Care Team (Late st Contact Info) Description 12/21/2010 8:36 AM EDT - 12/21/2010 11:59 PM EDT Hospital Encounter XRay at [address] [place] [address] Elbow pain Social History Tobacco Use Types [...] arm documented in this encounter Care Teams Car Dumper Operator Helper Relationship Specialty Start Date End Date Kallie Lopez MD [address] [facility] [address] PCP - General 01/17/10 06/29/12 documented as of this encounter
--- OUTSIDE RECORDS SUMMARY | 2023-10-21 02:43 | XMS_ITS | Encounter Summary ---
Author Organization [facility] Address [facility] [place] [address] Care Team Providers Care Netbackup Admin Name Role Phone Kallie Lopez MD Primary Care Provider Encounter Details Date Type Department Care Team (Late st Contact Info) Description 12/14/2010 Orders Only XRay at [address] [place] [address] Melisa Judd APRN [address] [facility] [address] [place] [address] Social History Tobacco Use Types [...] Anatomical Region Laterality Modality Other Melisa Judd DEPUTY TREASURER [place] MGR SCAN EX T ORDR/RSLT documented in this encounter Visit Diagnoses Not on filedocumented in this encounter Care Teams Netbackup Admin Relationship Specialty Start Date End Date Kallie Lopez MD [address] [place], [place] [id number] PCP - General 01/17/10 06/29/12 documented as of this encounter
--- NOTE | 2023-10-21 07:00 | DI.RAD_ITS ---
Exam(s) XR FOOT RT COMPLETE EXAM: XR FOOT RT COMPLETE h CLINICAL HISTORY: Charcot arthropathy,m14.60. TECHNIQUE: 2D digital imaging was performed. COMPARISON: CR XR FOOT LT COMPLETE from 10/03/2023 CR XR FOOT RT COMPLETE from 10/03/2023 FINDINGS: 3 views Again noted is fragmentation of navicular bone dorsal displacement fragments of this bone, similar to previous. The distal aspect of the talus also appears fragmented, similar to previous. There are some degenerative changes at the tarsometatarsal joints. No diastasis of the main Lisfranc joint. No evidence of osteomyelitis. Small inferior calcaneal spur again noted. IMPRESSION: Abnormal findings as above, similar to 10/03/2023. DATA REPOSITORY: RADIATION DOSE DELIVERED:
--- NOTE | 2023-10-21 07:00 | DI.RAD_ITS ---
Exam(s) XR FOOT LT COMPLETE EXAM: XR FOOT LT COMPLETE CLINICAL HISTORY: Charcot arthropathy,m14.60. TECHNIQUE: 2D digital imaging was performed. COMPARISON: CR XR FOOT LT COMPLETE from 10/03/2023 CR XR FOOT RT COMPLETE from 10/21/2023 FINDINGS: 3 views No evidence of acute fracture. 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 There are de generative changes at the tarsometatarsal joints, most evident at the 2nd, 3rd, and 4th TMT joints. Slightly widened space again noted between the middle and medial cuneiform bones but without true off set of the main Lisfranc joint. Inferior calcaneal spur again noted. IMPRESSION: As above with findings similar to 10/03/2023. DATA REPOSITORY: RADIATION DOSE DELIVERED:
== END 2023-10-21 02:53 ==
LOC: DI 02:33
PROVIDERS: PCP Family Medicine; Visit Provider Podiatrist
DX: M14.671 Charcot's joint, right ankle and foot (principal); M14.672 Charcot's joint, left ankle and foot
CPT/HCPCS: 73630

== ENCOUNTER 2023-12-10 01:41 | Outpatient (CLI) | payer BC, SELFPAY ==
--- NOTE | 2023-12-10 14:48 | DI.RAD_ITS ---
Exam(s) XR FOOT LT COMPLETE EXAM: XR FOOT LT COMPLETE CLINICAL HISTORY: Changes,charcots arthropathy,m14.60. TECHNIQUE: 2D digital imaging was performed. COMPARISON: CR XR FOOT LT COMPLETE from 10/21/2023 CR XR FOOT RT COMPLETE from 12/10/2023 FINDINGS: Four views There is some degenerative changes again noted at the tarsometatarsal joints and there is again noted slightly widened space between middle and medial cuneiform bones at the level the main Lisfranc join t region. There does not appear to be offset between the medial cortices of the base of the 2nd meta tarsal and medial cortex of the middle cuneiform. Again noted is lucency in the base of the 3rd metatarsal which is unchanged. There also subarticular lucencies in the adjacent lateral cuneiform. Smaller lucencies are seen in the bases of the 2nd and 4th metatarsals. That these may be degenerative subarticular cysts. Again noted is previously described bony excrescence off the lateral aspect of the diaphysis of the 3 rd metatarsal and there is a smaller opposing bony excrescence off the medial cortex at the mid diaph ysis of the 4th metatarsal. This may constitute a pseudoarticulation at this level. There is pes planus noted on the lateral weight-bearing view. Moderate size inferior calcaneal spur again noted as is an enthesophyte on the posterior calcaneus insertion site of the Achilles tendon. IMPRESSION: Multilevel findings as above but without significant radiographic change compared to 10/21/2023. DATA REPOSITORY: RADIATION DOSE DELIVERED:
--- NOTE | 2023-12-10 14:48 | DI.RAD_ITS ---
Exam(s) XR FOOT RT COMPLETE EXAM: XR FOOT RT COMPLETE CLINICAL HISTORY: changes,charcot arthropathy,m14.60. TECHNIQUE: 2D digital imaging was performed. COMPARISON: CR XR FOOT RT COMPLETE from 10/21/2023 CR XR FOOT LT COMPLETE from 10/21/2023 FINDINGS: 3 views Again noted is a previously described impacted-displaced fracture of the talonavicular joint. There is fragmentation of the navicular bone and with dorsal displaced in the fragments similar to previous . There is also fragmentation of the distal talus again noted. There are degenerative changes at the tarsometatarsal joints. No diastasis of the Lisfranc joint. O n the lateral view there is dorsally located calcification in the region of what is probably the the 1st tarsometatarsal joint. Small inferior calcaneal spur again noted. IMPRESSION: Findings are radiographically similar to 10/21/2023 with impacted and fragmented fracture of the talo navicular joint. Minimal if any significant radiographic change compared to the September 2023 images. DATA REPOSITORY: RADIATION DOSE DELIVERED:
== END 2023-12-10 02:01 ==
LOC: DI 01:41
PROVIDERS: PCP Family Medicine; Visit Provider Podiatrist
DX: M14.672 Charcot's joint, left ankle and foot (principal)
CPT/HCPCS: 73630

== ENCOUNTER 2024-01-28 01:16 | Outpatient (CLI) | payer BC, SELFPAY ==
--- NOTE | 2024-01-28 12:56 | DI.RAD_ITS ---
Exam(s) XR FOOT RT COMPLETE EXAM: XR FOOT RT COMPLETE CLINICAL HISTORY: ? changes,charcot joint,arthropathy,m14.60. TECHNIQUE: 2D digital imaging was performed. Three views. COMPARISON: CR XR FOOT RT COMPLETE from 12/10/2023 FINDINGS: BONES: Stable appearance of bony fragments noted at the dorsal aspect of the talus and cuneiform. No bony destructive lesion is seen. JOINTS: No dislocation present. The alignment is stable. SOFT TISSUE: Mild dorsal soft tissue swelling. IMPRESSION: Stable appearance of the right foot. DATA REPOSITORY: RADIATION DOSE DELIVERED:
--- NOTE | 2024-01-28 12:56 | DI.RAD_ITS ---
Exam(s) XR FOOT LT COMPLETE EXAM: XR FOOT LT COMPLETE CLINICAL HISTORY: ? changes,charcot arthropathy,joint,m14.60. TECHNIQUE: 2D digital imaging was performed. Three views. COMPARISON: CR XR FOOT LT COMPLETE from 12/10/2023 CR XR FOOT RT COMPLETE from 01/28/2024 FINDINGS: BONES: No acute fracture is present. No bony destructive lesion is seen. Stable bony excrescence fr om the lateral aspect of the 3rd metatarsal. Stable lucency at the base of the 3rd metatarsal. Heel spurs again noted JOINTS: No dislocation present. Degenerative changes and flexion at the interphalangeal joint of th e great toe. Pes planus. SOFT TISSUE: Normal. IMPRESSION: Stable appearance of the left foot. DATA REPOSITORY: RADIATION DOSE DELIVERED:
== END 2024-01-28 01:36 ==
LOC: DI 01:16
PROVIDERS: PCP Family Medicine; Visit Provider Podiatrist
DX: M14.671 Charcot's joint, right ankle and foot (principal); M14.672 Charcot's joint, left ankle and foot
CPT/HCPCS: 73630

== ENCOUNTER 2024-03-24 02:27 | Outpatient (CLI) | payer BC, SELFPAY ==
--- NOTE | 2024-03-24 07:22 | DI.RAD_ITS ---
Exam(s) XR FOOT LT COMPLETE EXAM: XR FOOT LT COMPLETE CLINICAL HISTORY: ? WORSENING CHARCOTS ARTHROPATHY,M14.60. TECHNIQUE: 2D digital imaging was performed of the left foot. Three images were obtained. AP, obli que and lateral views were obtained. COMPARISON: CR XR FOOT LT COMPLETE from 01/28/2024 FINDINGS: BONES: No acute fracture is present. No bony destructive lesion is seen. There is a plantar calcaneal spur and enthesophyte at the posterior calcaneus. JOINTS: There has been no change in alignment of the tarsal joints compared to the prior examination. Stable lucencies are seen at the tarsometatarsal joints. SOFT TISSUE: Normal. IMPRESSION: No change in appearance of the midfoot compared to the prior examination. The findings would be cons istent with a Charcot foot. DATA REPOSITORY: RADIATION DOSE DELIVERED:
--- NOTE | 2024-03-24 07:22 | DI.RAD_ITS ---
Exam(s) XR FOOT RT COMPLETE EXAM: XR FOOT RT COMPLETE CLINICAL HISTORY: ? WORSENING CHARCOTS ARTHROPATHY,M14.60. TECHNIQUE: 2D digital imaging was performed of the right foot. Three images were obtained. AP, obl ique and lateral views were obtained. COMPARISON: CR XR FOOT RT COMPLETE from 01/28/2024 FINDINGS: BONES: No acute fracture is present. No bony destructive lesion is seen. There is a plantar calcaneal spur and enthesophyte at the posterior calcaneus. JOINTS: There has been no change in the fragmentation and malalignment of the joints in the midfoot s leana 01/28/2024. SOFT TISSUE: Normal. IMPRESSION: Stable appearance of the right foot consistent with a Charcot foot. DATA REPOSITORY: RADIATION DOSE DELIVERED:
== END 2024-03-24 02:47 ==
LOC: DI 02:27
PROVIDERS: PCP Family Medicine; Visit Provider Podiatrist
DX: M14.671 Charcot's joint, right ankle and foot (principal); M14.672 Charcot's joint, left ankle and foot
CPT/HCPCS: 73630

== ENCOUNTER 2024-06-01 14:22 | Outpatient (CLI) | payer BC, SELFPAY ==
--- NOTE | 2024-06-01 14:10 | DI.RAD_ITS ---
Exam(s) XR FOOT RT COMPLETE EXAM: XR FOOT RT COMPLETE CLINICAL HISTORY: ? WORSENING CHARCOTS ARTHROPATHY,M14.60. TECHNIQUE: 2D digital imaging was performed of the right foot. Three images were obtained. AP, obl ique and lateral views were obtained. COMPARISON: CR XR FOOT RT COMPLETE from 03/24/2024 FINDINGS: BONES: No acute fracture is present. There is a small enthesophyte at the posterior calcaneus. There is a small plantar calcaneal spur. JOINTS: There is again seen disorganization of the right midfoot characterized by bony fragmentation and joint dislocation. The findings appears stable. SOFT TISSUE: There is soft tissue swelling seen in the midfoot. IMPRESSION: Stable appearance of the right foot compared to the prior examination from 03/24/2024. DATA REPOSITORY: RADIATION DOSE DELIVERED:
== END 2024-06-01 14:42 ==
PROVIDERS: PCP Family Medicine; Visit Provider Podiatrist
DX: M14.671 Charcot's joint, right ankle and foot (principal)
CPT/HCPCS: 73630

== ENCOUNTER 2024-08-24 17:34 | Outpatient (REF) | payer BC, SELFPAY ==
--- NOTE | 2024-08-24 08:15 | SKI_PTH ---
PATIENT: Porsha Park [facility]: [facility] U#:[id number] AGE/SX: 54/M ROOM: RE08/24/[address]: Mirian Malcolm : 1970 BED: DIS: 08/24/2024 SPEC #: [id number] RECD: 08/24/24 17:44 STATUS: DOUG REJake #: [id number] AMARILYS: 08/24/24 08:[address]: Mirian Malcolm DEPT: Surgical Specimen RECD BY: Myrna Zhang Tissues: 1 - SKIN BIOPSY(SHAVE/PUNCH) Procedures: SKIN LEVEL 4 Comments: [id number]
== END 2024-08-24 17:35 | disposition home or self-care (01) ==
LOC: LBN 17:34
PROVIDERS: PCP Family Medicine; Visit Provider Family Medicine
DX: L82.1 Other seborrheic keratosis (principal)
CPT/HCPCS: 88305

== ENCOUNTER 2024-11-23 19:45 | Outpatient (REF) | payer BC, SELFPAY ==
[2024-11-23 22:11] LABS: COMMENT (LAB VIEW ONLY) 24.67 mg/dL; Microalb ug/mg Crea 13.0 ug/mg Cr
== END 2024-11-23 19:46 | disposition home or self-care (01) ==
LOC: NCHCN 19:45
PROVIDERS: PCP Family Medicine; Visit Provider Family Medicine
DX: E11.21 Type 2 diabetes mellitus with diabetic nephropathy (principal)
CPT/HCPCS: 82043; 82570